=== PATIENT | male | born 1975 | race Caucasian/White ===

== ENCOUNTER → 2016-06-16 | Outpatient (CLI) | payer BC ==
[~2016-06-16] MED LIST: CETI10CA PO
--- NOTE | 2016-06-16 09:11 | Diagnostic Imaging Report ---
PROCEDURE: MRI right joint upper extremity without contrast. TECHNIQUE: Multiplanar, multisequence non contrast-enhanced MRI of the right upper extremity was accomplished. INDICATION: Shoulder pain. COMPARISON: There are no previous studies available for comparison. FINDINGS: On the coronal T2 fat-saturated series, there are small areas of increased signal within the substance of the rotator cuff. These are more likely due to tendinosis than to a partial tear. The supraspinatus muscle itself is not retracted or bunched. There is a trace amount of fluid in the subdeltoid bursa and the presence of fluid suggests there may be an element of mild inflammation. There is hypertrophy of the acromioclavicular joint and this does result in moderate narrowing of the outlet for the supraspinatus muscle. There is also some increased signal within the supraspinatus muscle in this area indicating edema/inflammation. On the axial series, there is some irregularity of the posterior labrum. The labrum in this area may be slightly torn. If further study is desired, followup exam with intra-articular contrast would be recommended. The biceps tendon and the subscapularis tendon are intact. There is a small amount of fluid about the biceps tendon. There is no abnormal signal arising from the cord or the vertebral bodies to indicate an acute abnormality. There is no sign of a joint effusion. IMPRESSION: 1. The small areas of altered signal within the rotator cuff are more likely due to tendinosis than to a partial tear. The supraspinatus muscle itself is not retracted or bunched. There does seem to be an element of mild tendinitis present however. 2. There is hypertrophy of the acromioclavicular joint and this does result in moderate narrowing of the outlet for the supraspinatus muscle. There is also edema/inflammation of the supraspinatus muscle in this region. 3. There is a question of a tear of the posterior labrum. Recommendations as above. 4. There is no acute bony abnormality identified. Dictated by: Dictated on workstation # [id number]
== END ==
LOC: RAD 07:57
PROVIDERS: ATTEND Nurse Practitioner Family
DX: M25.511 Pain in right shoulder (principal)
CPT/HCPCS: 73221

== ENCOUNTER → 2017-12-20 | Outpatient (CLI) | payer BC ==
--- NOTE | 2017-12-20 11:19 | Diagnostic Imaging Report ---
INDICATION: LEFT KNEE PAIN. TECHNIQUE: 3 views of the left knee. COMPARISON: None FINDINGS: No acute fracture or dislocation is seen in the left knee. Alignment appears normal. The joint spaces are preserved. There is a moderate left knee joint effusion. IMPRESSION: Moderate left knee joint effusion with no acute osseous abnormality seen in the left knee. Report was faxed to office of Gin Dooley by skyler at 11:18 am. Dictated by: Dictated on workstation # [id number]
== END ==
LOC: RAD 10:41
PROVIDERS: ATTEND Nurse Practitioner Family
DX: M25.562 Pain in left knee (principal); M25.462 Effusion, left knee
CPT/HCPCS: 73562

== ENCOUNTER → 2017-12-23 | Outpatient (CLI) | payer BC ==
--- NOTE | 2017-12-23 10:56 | Diagnostic Imaging Report ---
PROCEDURE: MRI left joint lower extremity without contrast. TECHNIQUE: Multiplanar, multisequence non contrast-enhanced MRI of the left lower extremity was accomplished. INDICATION: Left knee pain and popping. No prior studies are available for comparison. There is a small knee joint effusion. There is also a very small Friedman's cyst present. The marrow signal intensity is normal. No geographic marrow lesion or bone bruise is identified. The ACL and PCL are intact. The medial and lateral collateral ligament complexes are intact. The lateral meniscus is intact. There is abnormal linear signal extending to the posterior horn of the medial meniscus. This signal surfaces inferiorly and this is consistent with a tear. No displaced meniscal fragment is seen. The extensor mechanism is unremarkable. The articular cartilage appears to be intact without evidence of osteochondral defect. IMPRESSION: 1. Small joint effusion and small Friedman's cyst. 2. Posterior horn medial meniscus tear. 3. No ligamentous tear is identified. Dictated by: Dictated on workstation # [id number]
== END ==
LOC: RAD 09:22
PROVIDERS: ATTEND Nurse Practitioner Family
DX: S83.242A Other tear of medial meniscus, current injury, left knee, initial encounter (principal); M71.22 Synovial cyst of popliteal space [Baker], left knee
CPT/HCPCS: 73721

== ENCOUNTER → 2018-06-30 | Outpatient (CLI) | payer BC | LOC: LAB 13:58 | PROVIDERS: ATTEND Nurse Practitioner Family | DX: I86.1 Scrotal varices (principal) ==

== ENCOUNTER 2018-11-21 21:47 | Inpatient (IN) | payer BC ==
[~2018-11-21] VITALS: Ht 188 cm; Wt 82.1 kg
[2018-11-21] MEDS ORDERED: LACTATED RINGERS 1,000 ML IV ONE ×2 (22:12→23:22)
[2018-11-21] MEDS ORDERED: ONDANSETRON 4 MG/2 ML (SDV) Z0FRAN IVP ONE (22:15)
[2018-11-21 22:18] LABS: BILIRUBIN,URINE NEGATIVE (NEGATIVE); CLARITY,URINE SLIGHTLY CLOUDY; COLOR,URINE RED; GLUCOSE, URINE (UA) NEGATIVE (NEGATIVE); KETONES,URINE 2+ (NEGATIVE); LEUKOCYTE ESTERASE ,URINE 1+ (NEGATIVE); NITRITE,URINE POSITIVE (NEGATIVE); PH,URINE 6.5 (5-9); PROTEIN,URINE 2+ (NEGATIVE); UROBILINOGEN,URINE 1 MG/DL (NORMAL)
[2018-11-21 22:23] LABS: INR 1.1 (0.8-1.4); PROTHROMBIN TIME PATIENT 14.7 SEC (12.2-14.7)
[2018-11-21 22:25] LABS: RBC,URINE TNTC /HPF
[2018-11-21 22:26] LABS: BACTERIA,URINE TRACE /HPF
[2018-11-21 22:30] LABS: BASOPHILS % (AUTO) 0 % (0-10); EOSINOPHILS % (AUTO) 0 % (0-10); HEMATOCRIT 44 % (40-54); HEMOGLOBIN 14.6 G/DL (13.3-17.7); LYMPHOCYTES # (AUTO) 2.8 X 10^3 (1.0-4.0); LYMPHOCYTES % (AUTO) 12 % (12-44); MEAN CORPUSCULAR HEMOGLOBIN 27 PG (25-34); MEAN CORPUSCULAR HGB CONC 33 G/DL (32-36); MEAN CORPUSCULAR VOLUME 81 FL (80-99); MEAN PLATELET VOLUME 11.7 FL (7.4-10.4); MONOCYTES # (AUTO) 2.5 X 10^3 (0.0-1.0); MONOCYTES % (AUTO) 10 % (0-12); NEUTROPHILS # (AUTO) 18.6 X 10^3 (1.8-7.8); NEUTROPHILS % (AUTO) 78 % (42-75); PLATELET COUNT 274 10^3/uL (130-400)
[2018-11-21] MEDS ORDERED: KETOROLAC 30 MG/ML VIAL IVP ONE (22:30)
[2018-11-21 22:42] LABS: BAND NEUTROPHILS 2 %; BASOPHILS % (MANUAL) 0 %; EOSINOPHILS % (MANUAL) 0 %; LYMPHOCYTES % (MANUAL) 8 %; MONOCYTES % (MANUAL) 9 %; NEUTROPHILS % (MANUAL) 80 %; REACTIVE LYMPHOCYTES 1 %; TOXIC GRANULATION/VACUOLAZATIO 1+
[2018-11-21 22:45] LABS: ALANINE AMINOTRANSFERASE 23 U/L (0-55); ALBUMIN 4.4 GM/DL (3.2-4.5); ALKALINE PHOSPHATASE 89 U/L (40-136); AMYLASE 46 U/L (25-125); BILIRUBIN,TOTAL 2.4 MG/DL (0.1-1.0); BUN/CREATININE RATIO 8; CALCIUM 10.6 MG/DL (8.5-10.1); CARBON DIOXIDE 25 MMOL/L (21-32); CHLORIDE 100 MMOL/L (98-107); CREATININE SERUM 1.06 MG/DL (0.60-1.30); GFR ESTIMATED > 60; GLUCOSE 118 MG/DL (70-105); LIPASE 30 U/L (8-78); MAGNESIUM 2.5 MG/DL (1.8-2.4); POTASSIUM 3.8 MMOL/L (3.6-5.0); SODIUM 137 MMOL/L (135-145); TOTAL PROTEIN 7.7 GM/DL (6.4-8.2)
[2018-11-21] MEDS ORDERED: PIPERACILLIN/TAZOBACTAM (BULK) 4.5 GM in NS (IVPB) 100 ML IV ONE (23:15)
[2018-11-21] MEDS ORDERED: NS (IVPB) 100 ML ONE (23:17)
[2018-11-21] MEDS ORDERED: PIPERACILLIN/TAZO 4.5 GM VIAL (ZOSYN) IV ONE (23:17)
[2018-11-22] VITALS (15 sets, daily range): BP systolic 90–115; BP diastolic 52–77
[2018-11-22] MEDS ORDERED: morphine INJ 10 MG/ML 1ML (SYR OR VIAL) IVP ONE (00:15)
[2018-11-22] MEDS ORDERED: metroNIDAZOLE 500MG/100ML IVPB 100 ML IV ONE (01:00)
--- NOTE | 2018-11-22 01:17 | ED Abdominal Pain ---
General Chief Complaint: Abdominal/GI Problems Stated Complaint: ABD PAIN Nursing Triage Note: Pt amb to room #5 w/o difficulty. a&ox4. C/o medial abd pain, nausea, vomiting, and constipation. Reports discomfort began on the evening of 11/20/18. Reports he has not passed bm in x4 days. Reports to have taken mirilax and milk of magnesia w/o no relief. Denies fever or chills. Sepsis Screen: No Definite Risk Source of Information: Patient History of Present Illness Date Seen by Provider: Nov 21, 2018 Time Seen by Provider: 22:05 Initial Comments PT ARRIVES VIA POV FROM HOME C/O LOWER ABDOMINAL PAIN --SUPRAPUBIC AREA AND LLQ--SINCE YESTERDAY EVENING STATES HE HAS NOT HAD A BM IN 304 DAYS--HAS HISTORY OF IBS WITH CONSTIPATION, BUT TAKES MIRALAX AND HAS NOT BEEN HAVING PROBLEMS. 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 ON URINATING. STATES HE HAS HAD DECREASED URINE OUTPUT, HE HAS NOT BEEN EATING OR DRINKING TODAY HAD SUBJECTIVE FEVER LAST PM NO HISTORY OF SIMILAR PCP: DR. FONTAINE Allergies and Home Medications Allergies Coded Allergies: No Known Drug Allergies (Unverified , 11/28/10) Home Medications Cetirizine Hcl 10 Mg Capsule, 10 MG PO DAILY, (Reported) Patient Home Medication List Home Medication List Reviewed: Yes Review of Systems Review of Systems Constitutional: see HPI, fever, other (DECREASED APPETITE) Respiratory: No Symptoms Reported Cardiovascular: No Symptoms Reported Gastrointestinal: See HPI, Abdominal Pain, Constipated, Nausea, Poor Appetite, Vomiting Genitourinary: See HPI Musculoskeletal: no symptoms reported; No back pain Skin: no symptoms reported Psychiatric/Neurological: No Symptoms Reported Endocrine: No Symptoms Reported Hematologic/Lymphatic: No Symptoms Reported Past Cczlyzz-Omwmtx-Ejiypk Hx Patient Social History Alcohol Use: Rarely Uses Number of Drinks Today: 0 Recreational Drug Use: No Smoking Status: Never a Smoker 2nd Hand Smoke Exposure: No Recent Foreign Travel: No Contact w/Someone Who Travel: No Recent Infectious Disease Expo: No Recent Hopitalizations: Yes Seasonal Allergies Seasonal Allergies: No Past Medical History Surgeries: Yes (EGD) Orthopedic Respiratory: No Cardiac: No Neurological: No Genitourinary: No Gastrointestinal: Yes Irritable Bowel Musculoskeletal: No Endocrine: No HEENT: No Cancer: No Psychosocial: No Integumentary: No Blood Disorders: No Physical Exam Vital Signs Vital Signs - First Documented 11/21/18 21:53 Temp 97.8 Pulse 88 Resp 18 B/P (MAP) 124/79 (94) Pulse Ox 96 O2 Delivery Room Air Capillary Refill : Less Than 3 Seconds Height/Weight/BMI Height: 6'2.00" Weight: 185lbs. oz. 83.702232kx; BMI Method:Stated General Appearance: WD/WN, no apparent distress, thin Neck: normal inspection Respiratory: normal breath sounds, no respiratory distress, no accessory muscle use Cardiovascular: regular rate, rhythm, no murmur Gastrointestinal: abnormal bowel sounds (DECREASED ); No distended, No guarding; rebound, tenderness (SUPRAPUBIC AND LLQ WITH SIGNIFICANT TENDERNESS. MILD RLQ TENDERNESS. NO FLANK TENDERNESS); No hernia, No mass Extremities: normal inspection Back: normal inspection, no CVA tenderness Neurologic/Psychiatric: project estimator II-XII nml as tested, no motor/sensory deficits, alert, normal mood/affect, oriented x 3 Skin: normal color, warm/dry Focused Exam Lactate Level 11/21/18 23:00: Lactic Acid Level 1.25 Lactic Acid Level Laboratory Tests Test 11/21/18 23:00 Lactic Acid Level 1.25 MMOL/L (0.50-2.00) Progress/Results/Core Measures Results/Orders Lab Results Laboratory Tests Test 11/21/18 21:57 11/21/18 22:05 11/21/18 23:00 Range/Units White Blood Count 24.0 H 4.3-11.0 10^3/uL Red Blood Count 5.45 4.35-5.85 10^6/uL Hemoglobin 14.6 13.3-17.7 G/DL Hematocrit 44 40-54 % Mean Corpuscular Volume 81 80-99 FL Mean Corpuscular Hemoglobin 27 25-34 PG Mean Corpuscular Hemoglobin Concent 33 32-36 G/DL Red Cell Distribution Width 14.0 10.0-14.5 % Platelet Count 274 130-400 10^3/uL Mean Platelet Volume 11.7 H 7.4-10.4 FL Neutrophils (%) (Auto) 78 H 42-75 % Lymphocytes (%) (Auto) 12 12-44 % Monocytes (%) (Auto) 10 0-12 % Eosinophils (%) (Auto) 0 0-10 % Basophils (%) (Auto) 0 0-10 % Neutrophils # (Auto) 18.6 H 1.8-7.8 X 10^3 Lymphocytes # (Auto) 2.8 1.0-4.0 X 10^3 Monocytes # (Auto) 2.5 H 0.0-1.0 X 10^3 Eosinophils # (Auto) 0.0 0.0-0.3 10^3/uL Basophils # (Auto) 0.0 0.0-0.1 10^3/uL Neutrophils % (Manual) 80 % Lymphocytes % (Manual) 8 % Monocytes % (Manual) 9 % Eosinophils % (Manual) 0 % Basophils % (Manual) 0 % Band Neutrophils 2 % Reactive Lymphocytes 1 % Toxic Granulation 1+ Prothrombin Time 14.7 12.2-14.7 SEC INR Comment 1.1 0.8-1.4 Activated Partial Thromboplast Time 29 24-35 SEC Sodium Level 137 135-145 MMOL/L Potassium Level 3.8 3.6-5.0 MMOL/L Chloride Level 100 98-107 MMOL/L Carbon Dioxide Level 25 21-32 MMOL/L Anion Gap 12 5-14 MMOL/L Blood Urea Nitrogen 8 7-18 MG/DL Creatinine 1.06 0.60-1.30 MG/DL Estimat Glomerular Filtration Rate > 60 BUN/Creatinine Ratio 8 Glucose Level 118 H 70-105 MG/DL Calcium Level 10.6 H 8.5-10.1 MG/DL Corrected Calcium 10.3 H 8.5-10.1 MG/DL Magnesium Level 2.5 H 1.8-2.4 MG/DL Total Bilirubin 2.4 H 0.1-1.0 MG/DL Aspartate Amino Transf (AST/SGOT) 17 5-34 U/L Alanine Aminotransferase (ALT/SGPT) 23 0-55 U/L Alkaline Phosphatase 89 40-136 U/L Total Protein 7.7 6.4-8.2 GM/DL Albumin 4.4 3.2-4.5 GM/DL Amylase Level 46 25-125 U/L Lipase 30 8-78 U/L Urine Color RED H Urine Clarity SLIGHTLY CLOUDY Urine pH 6.5 5-9 Urine Specific Calvin 1.020 1.016-1.022 Urine Protein 2+ H NEGATIVE Urine Glucose (UA) NEGATIVE NEGATIVE Urine Ketones 2+ H NEGATIVE Urine Nitrite POSITIVE H NEGATIVE Urine Bilirubin NEGATIVE NEGATIVE Urine Urobilinogen 1 NORMAL MG/DL Urine Leukocyte Esterase 1+ H NEGATIVE Urine RBC (Auto) 5+ H NEGATIVE Urine RBC TNTC H /HPF Urine WBC 2-5 /HPF Urine Squamous Epithelial Cells NONE /HPF Urine Crystals NONE /LPF Urine Bacteria TRACE /HPF Urine Casts NONE /LPF Urine Mucus SMALL H /LPF Urine Culture Indicated NO Lactic Acid Level 1.25 0.50-2.00 MMOL/L My Orders Orders - CHARLIE TAYLOR DO Ed Iv/Invasive Line Start (11/21/18 22:12) Amylase (11/21/18 22:12) Cbc With Automated Diff (11/21/18 22:12) Comprehensive Metabolic Panel (11/21/18 22:12) Lipase (11/21/18 22:12) Magnesium (11/21/18 22:12) Protime With Inr (11/21/18 22:12) Partial Thromboplastin Time (11/21/18 22:12) Ua Culture If Indicated (11/21/18 22:12) Ondansetron Injection (Zofran Injectio (11/21/18 22:15) Ed Iv/Invasive Line Start (11/21/18 22:12) Lactated Ringers (Lr 1000 Ml Iv Solution (11/21/18 22:12) Ketorolac Injection (Toradol Injection) (11/21/18 22:30) Ct Abd/Pelvis Wo(Kidney Stone) (11/21/18 22:21) Acute Abd Series (11/21/18 22:21) Manual Differential (11/21/18 21:57) Lactic Acid Analyzer (11/21/18 22:38) Blood Culture (11/21/18 22:38) Piperacillin/Tazobactam (Bulk) (Zosyn In (11/21/18 23:15) Ns (Ivpb) (Sodium Chloride 0.9% Ivpb Bag (11/21/18 23:17) Ed Iv/Invasive Line Start (11/21/18 23:22) Lactated Ringers (Lr 1000 Ml Iv Solution (11/21/18 23:22) Piperacillin Sodium/Tazobactam (Zosyn Vi (11/21/18 23:17) Morphine Injection (Morphine Injection (11/22/18 00:15) Metronidazole 500mg/100ml Ivpb (Flagyl 5 (11/22/18 01:00) Medications Given in ED Current Medications Medications Dose Ordered Sig/Masha Route Start Time Stop Time Status Last Admin Dose Admin Ketorolac Tromethamine 30 mg ONCE ONCE IVP 11/21/18 22:30 11/21/18 22:31 DC 11/21/18 22:30 30 MG Lactated Ringer's 1,000 ml @ 0 mls/hr Q0M ONCE IV 11/21/18 22:12 11/21/18 22:14 DC 11/21/18 22:29 1,000 MLS/HR Lactated Ringer's 1,000 ml @ 0 mls/hr Q0M ONCE IV 11/21/18 23:22 11/21/18 23:23 DC 11/21/18 23:36 0 MLS/HR Morphine Sulfate 4 mg ONCE ONCE IVP 11/22/18 00:15 11/22/18 00:16 DC 11/22/18 00:25 4 MG Ondansetron HCl 4 mg ONCE ONCE IVP 11/21/18 22:15 11/21/18 22:16 DC 11/21/18 22:30 4 MG Piperacillin Sod/ Tazobactam Sod 4.5 gm/Sodium Chloride 120 ml @ 240 mls/hr ONCE ONCE IV 11/21/18 23:15 11/22/18 00:12 DC 11/21/18 23:37 240 MLS/HR Vital Signs/I&O 11/21/18 21:53 Temp 97.8 Pulse 88 Resp 18 B/P (MAP) 124/79 (94) Pulse Ox 96 O2 Delivery Room Air 11/22/18 00:00 Intake Total 1000 ml Balance 1000 ml Blood Pressure Mean: 94 Progress Progress Note : Progress Note PAIN TO LOWER ABDOMEN EASED SOMEWHAT WITH TORADOL 0012--PT NOW C/O SHARP PAIN IN RIGHT FLANK--GIVEN MORPHINE WITH EASING OF PAIN NO DETERIORATION IN PT'S CONDITION DURING ER STAY VITALS REMAINED STABLE MARKED DELAY IN OBTAINING CT RESULTS Diagnostic Imaging Comments ABDOMEN XRAYS--NO ACUTE PROCESS, NON SPECIFIC BOWEL GAS, PENDING RADIOLOGIST REVIEW CT ABDOMEN/PELVIS--5 MM PROXIMAL LEFT URETERAL CALCULUS WITH MILD LEFT HYDRONEPHROSIS. SIGNIFICANT INFLAMMATION SURROUNDING LEFT INFERIOR DESCENDING COLON AND SIGMOID COLON AROUND SIGMOID DIVERTICULUM WITH FREE EXTRALUMINAL AIR. NO ABSCESS OR FREE FLUID--PER [facility] VIA FAX AT 0045 Reviewed: Reviewed by Me Departure Communication (Admissions) 56--SPOKE WITH DR. OLGUIN, SURGEON [employer], HE ADVISES TO ADMIT TO DR. FONTAINE AND HE WILL SEE PT IN CONSULT. ANTIBIOTIC ORDERS NOTED. 58--SPOKE WITH DR. FONTAINE, ACCEPTS PT FOR ADMIT. WILL ALSO CONSULT DR. DUENAS Impression Primary Impression: Perforation of sigmoid colon due to diverticulitis Additional Impressions: Left ureteral stone UTI (urinary tract infection) Disposition: ADMITTED INPATIENT Condition: Improved Admissions Decision to Admit Reason: Admit from ER (General) Decision to Admit/Date: Nov 22, 2018 Time/Decision to Admit Time: 01:00 Departure-Patient Inst. Referrals: GUILLERMINA FONTAINE MD (PCP/Family) Primary Care Physician CHARLIE TAYLOR DO Nov 22, 2018 01:17
[2018-11-22] MEDS ORDERED: D5 1/2 NS W/KCL 20 MEQ/L 1,000 ML IV ONE (02:37)
[2018-11-22] MEDS ORDERED: ACETAMINOPHEN 500 MG TAB (TYLENOL) PO PRN (03:15)
[2018-11-22] MEDS ORDERED: morphine INJ 4 MG/ML 1 ML (VIAL/SYRINGE) IV PRN (03:15)
[2018-11-22] MEDS ORDERED: metroNIDAZOLE 500 MG/100 ML IVPB (PRE-MIX) IV SCH ×2 (03:15→06:00)
[2018-11-22] MEDS: D5 1/2 NS W/KCL 20 MEQ/L 1,000 ML IV SCH ×3 (04:03→23:32)
[2018-11-22] MEDS ORDERED: PIPERACILLIN/TAZO 4.5 GM VIAL (ZOSYN) IV ONE (04:48)
[2018-11-22] MEDS: KETOROLAC 30 MG/ML VIAL IVP PRN ×3 (05:14→20:30)
[2018-11-22] MEDS: PIPERACILLIN/TAZO 4.5 GM/NS 100 ML IV SCH ×8 (05:17→21:17)
[2018-11-22] MEDS: NS (IVPB) 100 ML ONE ×2 (05:18→05:32)
[2018-11-22 06:03] LABS: BASOPHILS % (AUTO) 0 % (0-10); EOSINOPHILS % (AUTO) 0 % (0-10); HEMATOCRIT 41 % (40-54); HEMOGLOBIN 13.4 G/DL (13.3-17.7); LYMPHOCYTES # (AUTO) 1.2 X 10^3 (1.0-4.0); LYMPHOCYTES % (AUTO) 6 % (12-44); MEAN CORPUSCULAR HEMOGLOBIN 27 PG (25-34); MEAN CORPUSCULAR HGB CONC 33 G/DL (32-36); MEAN CORPUSCULAR VOLUME 82 FL (80-99); MEAN PLATELET VOLUME 12.1 FL (7.4-10.4); MONOCYTES # (AUTO) 2.5 X 10^3 (0.0-1.0); MONOCYTES % (AUTO) 11 % (0-12); NEUTROPHILS # (AUTO) 18.4 X 10^3 (1.8-7.8); NEUTROPHILS % (AUTO) 83 % (42-75); PLATELET COUNT 241 10^3/uL (130-400); RED CELL DISTRIBUTION WIDTH 14.2 % (10.0-14.5); WHITE BLOOD COUNT 22.2 10^3/uL (4.3-11.0)
[2018-11-22 06:37] LABS: ALANINE AMINOTRANSFERASE 21 U/L (0-55); ALBUMIN 3.8 GM/DL (3.2-4.5); ALKALINE PHOSPHATASE 82 U/L (40-136); BILIRUBIN,TOTAL 2.6 MG/DL (0.1-1.0); BUN/CREATININE RATIO 8; CALCIUM 9.2 MG/DL (8.5-10.1); CARBON DIOXIDE 26 MMOL/L (21-32); CHLORIDE 103 MMOL/L (98-107); CREATININE SERUM 0.97 MG/DL (0.60-1.30); GFR ESTIMATED > 60; GLUCOSE 129 MG/DL (70-105); POTASSIUM 3.7 MMOL/L (3.6-5.0); SODIUM 137 MMOL/L (135-145); TOTAL PROTEIN 6.7 GM/DL (6.4-8.2)
--- OUTSIDE RECORDS SUMMARY | 2018-11-22 06:51 | XMS REPORT | CCD ---
Author Author [facility] Organization [facility] Address [address] [place] [address] Phone Care Team Providers Care Shear Scrapman Name Role Phone Claire Riggs PP Unavailable CCM Unavailable Summary Purpose Interface Exchange Insurance Providers Payer name Policy type / Coverage type Covered green party ID Effective Begin Date Effective End Date [facility] [id number] Unknown Family history Mother Diagnosis Age At Onset Cancer Unknown Brother Diagnosis Age At Onset No Family Disease Entered N/A Grandmother Diagnosis Age At Onset Cancer Unknown Father Diagnosis Age At Onset No Family Disease Entered N/A Social History Social History Element Codes Description Effective Dates Marital status Unknown 01/12/2011 Employment Unknown 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 Unknown Has never used illegal drugs 01/12/2011 Allergies, Adverse Reactions, Alerts Substance Reaction Codes Entered Date Inactivated Date Status * NO KNOWN FOOD ALLERGIES Unknown 01/12/2011 No Inactive Date Active bactrim RxNorm: 600911 03/22/2015 No Inactive Date Active Past Medical History Illness Codes Condition Status Onset Date Resolved Date Encounter for general adult medical examination without abnormal findings ICD-9: V70.0 ICD-10: Z00.00 Active 03/21/2015 Unknown Irritable bowel syndrome with constipation ICD-9: 564.1 ICD-10: K58.1 Active 10/25/2018 Unknown Other allergic rhinitis ICD-9: 477.8 ICD-10: J30.89 Active 01/07/2016 Unknown Right lower quadrant pain ICD-9: 789.03 ICD-10: R10.31 Active 10/06/2018 Unknown Slow transit constipation ICD-9: 564.01 ICD-10: K59.01 Active 10/06/2018 Unknown Candidiasis of skin and nail ICD-9: 112.3 ICD-10: B37.2 Active 08/08/2018 Unknown Dysuria ICD-9: 788.1 ICD-10: R30.0 Active 11/26/2017 Unknown 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 Active 02/22/2018 Unknown Unspecified jaundice ICD- 9: 277.4 ICD-10: R17 Active 03/15/2018 Unknown Inflammatory disorders of scrotum ICD-9: 608.4 ICD-10: N49.2 Active 02/22/2018 Unknown Pain in left knee ICD-9: 719.46 ICD-10: M25.562 Active 12/20/2017 Unknown Other acute sinusitis ICD- 9: 461.8 ICD-10: J01.80 Active 02/24/2017 Unknown Allergic contact dermatitis due to plants, except food ICD-9: 692.6 ICD-10: L23.7 Active 04/05/2017 Unknown Acute recurrent maxillary sinusitis ICD-9: 461.0 ICD-10: J01.01 Active 07/29/2015 Unknown Other acute sinusitis ICD- 9: 461.9 ICD-10: J01.80 Active 01/07/2016 Unknown Acute laryngopharyngitis ICD-9: 465.0 ICD-10: J06.0 Active 08/20/2016 Unknown Pain in right shoulder ICD-9: 719.41 ICD-10: M25.511 Active 06/09/2016 Unknown Melanocytic nevi, unspecified ICD-9: 216.9 ICD-10: D22.9 Active 02/06/2016 Unknown Allergic rhinitis, unspecified ICD-9: 477.9 ICD-10: J30.9 Active 03/21/2015 Unknown Influenza ICD-9: 487.1 Active 06/20/2012 Unknown Screen for sexually transmitted diseases ICD-9: V74.5 Active 03/18/2012 Unknown Burning with urination ICD-9: 788.1 Active 03/17/2012 Unknown ACUTE SINUSITIS ICD-9: 461.9 Active 06/30/2011 Unknown COUGH ICD-9: 786.2 Active 06/30/2011 Unknown Constipation ICD-9: 564.00 Active 03/09/2011 Unknown Irritable bowel syndrome Unknown Active 01/12/2011 Unknown Encounter for annual health examination ICD-9: V70.0 Active 01/12/2011 Unknown Esophageal reflux ICD-9: 530.81 Active 01/12/2011 Unknown Problems Condition Codes Effective Dates Condition Status Encounter for general adult medical examination without abnormal findings ICD-9: V70.0 ICD-10: Z00.00 03/21/2015 Active Irritable bowel syndrome with constipation ICD-9: 564.1 ICD-10: K58.1 10/25/2018 Active Other allergic rhinitis ICD-9: 477.8 ICD-10: J30.89 01/07/2016 Active Right lower quadrant pain ICD-9: 789.03 ICD-10: R10.31 10/06/2018 Active Slow transit constipation ICD-9: 564.01 ICD-10: K59.01 10/06/2018 Active Candidiasis of skin and nail ICD-9: 112.3 ICD-10: B37.2 08/08/2018 Active Dysuria ICD-9: 788.1 ICD-10: R30.0 11/26/2017 Active 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 02/22/2018 Active Unspecified jaundice ICD- 9: 277.4 ICD-10: R17 03/15/2018 Active Inflammatory disorders of scrotum ICD-9: 608.4 ICD-10: N49.2 02/22/2018 Active Pain in left knee ICD-9: 719.46 ICD-10: M25.562 12/20/2017 Active Other acute sinusitis ICD- 9: 461.8 ICD-10: J01.80 02/24/2017 Active Allergic contact dermatitis due to plants, except food ICD-9: 692.6 ICD-10: L23.7 04/05/2017 Active Acute recurrent maxillary sinusitis ICD-9: 461.0 ICD-10: J01.01 07/29/2015 Active Other acute sinusitis ICD- 9: 461.9 ICD-10: J01.80 01/07/2016 Active Acute laryngopharyngitis ICD-9: 465.0 ICD-10: J06.0 08/20/2016 Active Pain in right shoulder ICD-9: 719.41 ICD-10: M25.511 06/09/2016 Active Melanocytic nevi, unspecified ICD-9: 216.9 ICD-10: D22.9 02/06/2016 Active Allergic rhinitis, unspecified ICD-9: 477.9 ICD-10: J30.9 03/21/2015 Active Influenza ICD-9: 487.1 06/20/2012 Active Screen for sexually transmitted diseases ICD-9: V74.5 03/18/2012 Active Burning with urination ICD-9: 788.1 03/17/2012 Active ACUTE SINUSITIS ICD-9: 461.9 06/30/2011 Active COUGH ICD-9: 786.2 06/30/2011 Active Constipation ICD-9: 564.00 03/09/2011 Active Irritable bowel syndrome Unknown 01/12/2011 Active Encounter for annual health examination ICD-9: V70.0 01/12/2011 Active Esophageal reflux ICD-9: 530.81 01/12/2011 Active Medications Medication Codes Instructions Start Date Stop Date Status Fill Instructions Flonase 50 mcg/actuation nasal spray,suspension RxNorm: 6549384 1 Thompson NASAL BID 10/26/2018 No Stop Date Active Lipitor 10 mg tablet RxNorm: 018627 1 Tablet(s) PO daily 10/26/2018 02/22/2019 Active Lipitor 10 mg tablet RxNorm: 048727 1 Tablet(s) PO daily 10/26/2018 10/25/2018 Inactive Yuridia-D 12 Hour 60 mg-120 mg tablet,extended release RxNorm: 097300 1 Tablet(s) PO BID 09/07/2018 No Stop Date Active fluconazole 150 mg tablet RxNorm: 742367 1 Tablet(s) PO daily 08/08/2018 08/14/2018 Inactive omeprazole 20 mg capsule,delayed release RxNorm: 906825 1 Capsule(s) PO daily 06/28/2018 10/25/2018 Inactive Zyrtec-D 5 mg-120 mg tablet,extended release RxNorm: 8276521 1 Tablet(s) PO BID as needed 06/22/2018 No Stop Date Active Flonase 50 mcg/actuation nasal spray,suspension RxNorm: 1416440 1 Thompson NASAL BID 06/22/2018 10/25/2018 Inactive Augmentin 875 mg-125 mg tablet RxNorm: 209683 1 Tablet(s) PO BID 06/02/2018 06/08/2018 Inactive Zithromax Z-Surya 250 mg tablet RxNorm: 095106 1 Tablet(s) PO UD 03/24/2018 06/01/2018 Inactive Flonase 50 mcg/actuation nasal spray,suspension RxNorm: 4233622 1 Thompson NASAL BID 03/01/2018 06/21/2018 Inactive Cipro 500 mg tablet RxNorm: 373908 1 Tablet(s) PO BID 02/16/2018 02/25/2018 Inactive Diflucan 150 mg tablet RxNorm: 636853 1 Tablet(s) PO daily start after cipro is finished 02/16/2018 02/22/2018 Inactive Augmentin 875 mg-125 mg tablet RxNorm: 429298 1 Tablet(s) PO BID 12/24/2017 12/23/2017 Inactive Augmentin 875 mg-125 mg tablet RxNorm: 560518 1 Tablet(s) PO BID 12/24/2017 12/30/2017 Inactive Keflex 500 mg capsule RxNorm: 924942 1 Capsule(s) PO TID 12/08/2017 12/14/2017 Inactive Yuridia-D 12 Hour 60 mg-120 mg tablet,extended release RxNorm: 348483 1 Tablet(s) PO BID 12/06/2017 09/06/2018 Inactive Keflex 500 mg capsule RxNorm: 026231 1 Capsule(s) PO TID 11/26/2017 12/02/2017 Inactive Flonase 50 mcg/actuation nasal spray,suspension RxNorm: 9729058 1 Thompson NASAL BID 11/15/2017 02/28/2018 Inactive Yuridia Allergy 180 mg tablet RxNorm: 948200 1 Tablet(s) PO daily 10/27/2017 10/27/2017 Inactive Zyrtec-D 5 mg-120 mg tablet,extended release RxNorm: 9409492 1 Tablet(s) PO BID as needed 10/20/2017 06/21/2018 Inactive Yuridia Allergy 180 mg tablet RxNorm: 847654 1 Tablet(s) PO daily 09/21/2017 10/20/2017 Inactive Augmentin 500 mg-125 mg tablet RxNorm: 379944 1 Tablet(s) PO TID 07/21/2017 07/30/2017 Inactive Yuridia Allergy 180 mg tablet RxNorm: 720780 1 Tablet(s) PO daily 07/21/2017 08/19/2017 Inactive Zyrtec-D 5 mg-120 mg tablet,extended release RxNorm: 2317900 1 Tablet(s) PO BID as needed 06/15/2017 10/19/2017 Inactive Zyrtec-D 5 mg-120 mg tablet,extended release RxNorm: 3540380 1 Tablet(s) PO BID as needed 05/11/2017 02/21/2018 Inactive prednisone 10 mg tablet RxNorm: 793555 Tablet(s) PO 04/05/2017 12/07/2017 Inactive 6,5,4,3,2,1 Kenalog 40 mg/mL suspension for injection RxNorm: 6912105 1 Milliliter(s) Inj 04/05/2017 04/05/2017 Inactive Flonase 50 mcg/actuation nasal spray,suspension RxNorm: 2019237 1 Thompson NASAL BID 04/01/2017 11/14/2017 Inactive Augmentin 875 mg-125 mg tablet RxNorm: 492082 1 Tablet(s) PO BID 03/22/2017 03/28/2017 Inactive prednisone 20 mg tablet RxNorm: 339816 2 Tablet(s) PO daily 03/02/2017 03/06/2017 Inactive prednisone 20 mg tablet RxNorm: 270724 2 Tablet(s) PO daily 03/02/2017 03/01/2017 Inactive Zithromax Z-Surya 250 mg tablet RxNorm: 601642 1 Tablet(s) PO UD 02/24/2017 03/21/2017 Inactive Kenalog 40 mg/mL suspension for injection RxNorm: 0292263 1 Milliliter(s) Inj 02/24/2017 02/24/2017 Inactive Zyrtec-D 5 mg-120 mg tablet,extended release RxNorm: 9394650 1 Tablet(s) PO BID as needed 02/05/2017 05/10/2017 Inactive Zyrtec-D 5 mg-120 mg tablet,extended release RxNorm: 6023221 1 Tablet(s) PO BID as needed 12/01/2016 02/04/2017 Inactive Zyrtec-D 5 mg-120 mg tablet,extended release RxNorm: 9795167 1 Tablet(s) PO BID as needed 11/03/2016 11/30/2016 Inactive Zyrtec-D 5 mg-120 mg tablet,extended release RxNorm: 9892521 1 Tablet(s) PO BID as needed 10/09/2016 11/02/2016 Inactive Kenalog 40 mg/mL suspension for injection RxNorm: 7712478 1 Milliliter(s) Inj 09/16/2016 09/16/2016 Inactive Levaquin 500 mg tablet RxNorm: 421968 1 Tablet(s) PO daily 09/15/2016 09/24/2016 Inactive Levaquin 500 mg tablet RxNorm: 162093 1 Tablet(s) PO daily 09/15/2016 09/14/2016 Inactive prednisone 20 mg tablet RxNorm: 723671 1 Tablet(s) PO BID 09/15/2016 09/19/2016 Inactive amoxicillin 500 mg tablet RxNorm: 009442 1 Tablet(s) PO BID 08/20/2016 08/29/2016 Inactive Augmentin 875 mg-125 mg tablet RxNorm: 348524 1 Tablet(s) PO BID 04/23/2016 04/28/2016 Inactive Zyrtec-D 5 mg-120 mg tablet,extended release RxNorm: 1992609 1 Tablet(s) PO BID as needed 01/31/2016 10/08/2016 Inactive Flonase 50 mcg/actuation nasal spray,suspension RxNorm: 7116139 1 Thompson NASAL BID 01/08/2016 01/22/2016 Inactive Flonase 50 mcg/actuation nasal spray,suspension RxNorm: 8834768 1 Thompson NASAL BID 01/08/2016 01/07/2016 Inactive 1 spray each nare x 5 days Zithromax Z-Surya 250 mg tablet RxNorm: 798885 Tablet(s) PO 01/08/2016 01/30/2016 Inactive Zyrtec-D 5 mg-120 mg tablet,extended release RxNorm: 0624635 1 Tablet(s) PO BID as needed 01/08/2016 01/30/2016 Inactive Augmentin 875 mg-125 mg tablet RxNorm: 673038 1 Tablet(s) PO BID 10/08/2015 10/17/2015 Inactive Augmentin 875 mg-125 mg tablet RxNorm: 057712 1 Tablet(s) PO BID 10/08/2015 10/07/2015 Inactive prednisone 20 mg tablet RxNorm: 495914 1 Tablet(s) PO BID 08/01/2015 08/05/2015 Inactive prednisone 20 mg tablet RxNorm: 254463 1 Tablet(s) PO BID 08/01/2015 07/31/2015 Inactive Kenalog 40 mg/mL suspension for injection RxNorm: 6402138 Milliliter(s) Inj 07/30/2015 07/30/2015 Inactive Zyrtec-D 5 mg-120 mg tablet,extended release RxNorm: 0262398 1 Tablet(s) PO BID as needed 07/30/2015 01/07/2016 Inactive Augmentin 875 mg-125 mg tablet RxNorm: 509392 1 Tablet(s) PO BID 07/30/2015 08/05/2015 Inactive Kenalog 40 mg/mL suspension for injection RxNorm: 3609270 1 Milliliter(s) Inj 03/22/2015 03/22/2015 Inactive Flonase 50 mcg/actuation Nasal Thompson RxNorm: 7369412 1 Thompson NASAL 07/12/2012 07/11/2012 Inactive 1 spray each nare x 5 days Flonase 50 mcg/actuation Nasal Thompson RxNorm: 5445370 1 Thompson NASAL 07/12/2012 07/16/2012 Inactive 1 spray each nare x 5 days cefdinir 300 mg capsule RxNorm: 621039 1 Capsule(s) PO BID 07/12/2012 07/18/2012 Inactive cefdinir 300 mg capsule RxNorm: 586707 1 Capsule(s) PO BID 07/12/2012 07/11/2012 Inactive Tamiflu 75 mg capsule RxNorm: 766875 1 Capsule(s) PO BID 06/20/2012 06/24/2012 Inactive Tamiflu 75 mg capsule RxNorm: 864502 1 Capsule(s) PO BID 06/20/2012 06/19/2012 Inactive Diflucan 150 mg tablet RxNorm: 344053 1 Tablet(s) PO daily 04/21/2012 05/04/2012 Inactive nystatin 100,000 unit/g Topical Cream RxNorm: 745016 1 Application TOP TID 04/13/2012 05/02/2012 Inactive one application to groin tid Diflucan 150 mg tablet RxNorm: 670296 1 Tablet(s) PO daily 04/04/2012 04/06/2012 Inactive nystatin 100,000 unit/g Topical Cream RxNorm: 969127 1 Application TOP TID 04/04/2012 04/03/2012 Inactive one application to groin tid x 10 day nystatin 100,000 unit/g Topical Cream RxNorm: 503102 1 Application TOP TID 04/04/2012 04/12/2012 Inactive one application to groin tid x 10 day Diflucan 150 mg tablet RxNorm: 385992 1 Tablet(s) PO daily 03/23/2012 03/22/2012 Inactive Diflucan 150 mg tablet RxNorm: 919990 1 Tablet(s) PO daily 03/23/2012 03/29/2012 Inactive Rocephin 1 gram Solution for Injection RxNorm: 4189221 Inj 03/18/2012 03/18/2012 Inactive Augmentin 500 mg-125 mg tablet RxNorm: 844705 1 Tablet(s) PO TID 03/11/2012 03/10/2012 Inactive Augmentin 500 mg-125 mg tablet RxNorm: 369072 1 Tablet(s) PO TID 03/11/2012 03/17/2012 Inactive Kenalog 40 mg/mL Susp for Injection RxNorm: 4645574 1 Milliliter(s) Inj 07/02/2011 07/02/2011 Inactive Rocephin 500 mg Solution for Injection RxNorm: 4472998 1 Milliliter(s) Inj 07/02/2011 07/02/2011 Inactive Bactrim DS 800 mg-160 mg Tab RxNorm: 275910 1 Tablet(s) PO BID 06/30/2011 07/09/2011 Inactive multivitamin Oral RxNorm: Oral No Start Date Active omeprazole 40 mg Cap, Delayed Release RxNorm: 491061 1 Capsule(s) PO PRN No Start Date Active dicyclomine 20 mg tablet RxNorm: 455501 1 Tablet(s) PO TID No Start Date Active Yuridia-D 12 Hour 60 mg-120 mg tablet,extended release RxNorm: 979968 1 Tablet(s) PO BID No Start Date 12/05/2017 Inactive Zithromax 500 mg tablet RxNorm: 407099 2 Tablet(s) PO daily No Start Date 01/30/2016 Inactive Aspirin For Children 81 mg Chewable Tab RxNorm: 124985 1 Tablet(s) PO daily No Start Date 08/07/2018 Inactive Zyrtec-D 5 mg-120 mg 12 hr Tab RxNorm: 6003962 1 Tablet(s) PO daily No Start Date 07/29/2015 Inactive Medication Administered Medication Codes Instructions Start Date Status Kenalog 40 mg/mL suspension for injection RxNorm: 1947535 1Milliliter 04/05/2017 No longer Active Kenalog 40 mg/mL suspension for injection RxNorm: 2286417 1Milliliter 02/24/2017 No longer Active Kenalog 40 mg/mL suspension for injection RxNorm: 7749941 1Milliliter 09/16/2016 No longer Active Kenalog 40 mg/mL suspension for injection RxNorm: 8993258 Milliliter 07/30/2015 No longer Active Kenalog 40 mg/mL suspension for injection RxNorm: 7665357 1Milliliter 03/22/2015 No longer Active Rocephin 1 gram Solution for Injection RxNorm: 1471919 03/18/2012 No longer Active Rocephin 500 mg Solution for Injection RxNorm: 4049101 1Milliliter 07/02/2011 No longer Active Kenalog 40 mg/mL Susp for Injection RxNorm: 9492821 1Milliliter 07/02/2011 No longer Active Immunizations Vaccine Codes Date Status Tetanus, Diptheria, Pertussis Unknown 05/23/2010 completed Assessments Condition Codes Effective Dates Other allergic rhinitis ICD-10: J30.89 ICD-9: 477.8 10/25/2018 Irritable bowel syndrome with constipation ICD-10: K58.1 ICD-9: 564.1 10/25/2018 Slow transit constipation ICD-10: K59.01 ICD-9: 564.01 10/06/2018 Right lower quadrant pain ICD-10: R10.31 ICD-9: 789.03 10/06/2018 Candidiasis of skin and nail ICD-10: B37.2 ICD-9: 112.3 08/08/2018 Dysuria ICD-10: R30.0 ICD-9: 788.1 06/28/2018 Scrotal varices ICD-10: I86.1 ICD-9: 456.4 06/28/2018 Unspecified jaundice ICD-10: R17 ICD-9: 277.4 03/15/2018 Inflammatory disorders of scrotum ICD-10: N49.2 ICD-9: 608.4 02/22/2018 Pain in left knee ICD-10: M25.562 ICD-9: 719.46 12/20/2017 Encounter for general adult medical examination without abnormal findings ICD-10: Z00.00 ICD-9: V70.0 11/26/2017 Other acute sinusitis ICD-10: J01.80 ICD-9: 461.8 07/21/2017 Allergic contact dermatitis due to plants, except food ICD-10: L23.7 ICD-9: 692.6 04/05/2017 Acute recurrent maxillary sinusitis ICD-10: J01.01 ICD-9: 461.0 03/22/2017 Acute laryngopharyngitis ICD-10: J06.0 ICD-9: 465.0 08/20/2016 Pain in right shoulder ICD-10: M25.511 ICD-9: 719.41 06/10/2016 Melanocytic nevi, unspecified ICD-10: D22.9 ICD-9: 216.9 02/07/2016 Other acute sinusitis ICD-10: J01.80 ICD-9: 461.9 01/08/2016 Allergic rhinitis, unspecified ICD-10: J30.9 ICD-9: 477.9 03/22/2015 Influenza ICD-9: 487.1 06/20/2012 DYSURIA ICD-9: 788.1 03/18/2012 Screen for sexually transmitted diseases ICD-9: V74.5 03/18/2012 COUGH ICD-9: 786.2 06/30/2011 ACUTE SINUSITIS ICD-9: 461.9 06/30/2011 ESOPHAGEAL REFLUX ICD-9: 530.81 03/09/2011 Constipation ICD-9: 564.00 03/09/2011 Encounter for annual health examination ICD-9: V70.0 01/12/2011 Reason For Visit Reason For Visit Effective Dates Notes abdominal pain 10/25/2018 abdominal pain 10/06/2018 penile pain and discharge 08/08/2018 dysuria 06/28/2018 cyst 02/22/2018 urinary frequency 02/16/2018 knee pain 12/20/2017 well man exam (40-65 years) 11/26/2017 sinus congestion 07/21/2017 rash 04/05/2017 earache 03/22/2017 sinus congestion 02/24/2017 sore throat 08/20/2016 shoulder pain 06/10/2016 skin lesion 02/07/2016 sinus congestion 01/08/2016 cough 07/30/2015 well man exam (18-39 years) 03/22/2015 sinus congestion 06/20/2012 dysuria 03/18/2012 sinus congestion 06/30/2011 abdominal pain 03/09/2011 ~generic 01/12/2011 new patient - transfer from Dr. Francisco Results Observation Observation Code Item Item Code Result Date Comp Metabolic Xxu751 NA 139 mEq/L 03/15/2018 Comp Metabolic Xsh270 K 4.2 mEq/L 03/15/2018 Comp Metabolic Wzx860 CL 101 mEq/L 03/15/2018 Comp Metabolic Azy999 CO2 32.0 mEq/L 03/15/2018 Comp Metabolic Knb705 ANION GAP 10 03/15/2018 Comp Metabolic Zel636 GLUCOSE 94 mg/dL 03/15/2018 Comp Metabolic Qva219 Creat 0.9 mg/dL 03/15/2018 Comp Metabolic Rvv467 eGFR 104 ml/min/1.73m2 03/15/2018 Comp Metabolic Heu363 BUN 14 mg/dL 03/15/2018 Comp Metabolic Pmp747 B/C Ratio 16.3 Ratio 03/15/2018 Comp Metabolic Lws389 CALCIUM 9.8 mg/dL 03/15/2018 Comp Metabolic Xjt923 ALK PHOS 75 U/L 03/15/2018 Comp Metabolic Zyx075 AST(SGOT) 20 U/L 03/15/2018 Comp Metabolic Awj995 ALT(SGPT) 30 U/L 03/15/2018 Comp Metabolic Lqk821 BILI T 1.2 mg/dL 03/15/2018 Comp Metabolic Cfv903 ALBUMIN 4.7 g/dL 03/15/2018 Comp Metabolic Fzy005 TPRO 7.2 g/dL 03/15/2018 Comp Metabolic Tmx294 GLOB 2.5 g/dL 03/15/2018 Comp Metabolic Wva663 A/G Ratio 1.9 Ratio 03/15/2018 Comp Metabolic Rkg720 Osmo 278 mOsmo 03/15/2018 Urine Culture Ucult Preliminary NO Growth Day 1 01/06/2018 Urine Culture Ucult Complete NO Growth Day 2 01/06/2018 Urinalysis Ord28 U-Color Yellow 01/04/2018 Urinalysis Ord28 U-Clarity Cloudy 01/04/2018 Urinalysis Ord28 U-Gluc Negative 01/04/2018 Urinalysis Ord28 U-Bili Negative 01/04/2018 Urinalysis Ord28 U-Ketone Negative 01/04/2018 Urinalysis Ord28 U-SG 1.020 01/04/2018 Urinalysis Ord28 U-Blood Negative 01/04/2018 Urinalysis Ord28 U-pH 8.0 01/04/2018 Urinalysis Ord28 U-Protein Negative 01/04/2018 Urinalysis Ord28 U-Urobilin 0.2 E.U./dL E.U./dL 01/04/2018 Urinalysis Ord28 U-Nitrites Negative 01/04/2018 Urinalysis Ord28 U-Leuk Negative 01/04/2018 Urinalysis Ord28 U-Bact None 01/04/2018 Urinalysis Ord28 U-Squamous Epi 0-5 per/HPF 01/04/2018 Urinalysis Ord28 U-Crystal None per/HPF 01/04/2018 Urinalysis Ord28 U-Mucus None 01/04/2018 Urinalysis Ord28 U-Renal tubular epi None 01/04/2018 Urinalysis Ord28 U-RBC None per/HPF 01/04/2018 Urinalysis Ord28 U-Transitional epi None per/HPF 01/04/2018 Urinalysis Ord28 U-WBC None per/HPF 01/04/2018 Urinalysis Ord28 U-Cast None per/HPF 01/04/2018 Urinalysis Ord28 U-VOL VOLUME SUFFICIENT (10mL) 01/04/2018 Urinalysis Ord28 U-Yeast NEGATIVE 01/04/2018 Urinalysis Ord28 U-Com Amorphus phosphates present. Urine saved if culture needed 01/04/2018 Hepatitis Panel (Abc) 50662 HEPATITIS B SURFACE AG . 12/09/2017 Hepatitis Panel (Abc) 42013 HEPATITIS B SURFACE AG NEGATIVE 12/09/2017 Hepatitis Panel (Abc) 21856 HEPATITIS B CORE AB, IGM . 12/09/2017 Hepatitis Panel (Abc) 61503 HEPATITIS B CORE AB, IGM NEGATIVE 12/09/2017 Hepatitis Panel (Abc) 64221 HEPATITIS A AB, IGM . 12/09/2017 Hepatitis Panel (Abc) 56488 HEPATITIS A AB, IGM NEGATIVE 12/09/2017 Hepatitis Panel (Abc) 65186 HEPATITIS C ANTIBODY . 12/09/2017 Hepatitis Panel (Abc) 07094 HEPATITIS C ANTIBODY NEGATIVE 12/09/2017 Tsh Ord6 TSH (3rd IS) 2.24 uIU/mL 11/29/2017 Comp Metabolic Eht285 NA 138 mEq/L 11/29/2017 Comp Metabolic Msj504 K 4.1 mEq/L 11/29/2017 Comp Metabolic Rim817 CL 101 mEq/L 11/29/2017 Comp Metabolic Ztt481 CO2 30.0 mEq/L 11/29/2017 Comp Metabolic Hxz830 ANION GAP 11 11/29/2017 Comp Metabolic Gbm638 GLUCOSE 89 mg/dL 11/29/2017 Comp Metabolic Rdp213 Creat 0.8 mg/dL 11/29/2017 Comp Metabolic Bsp149 eGFR 107 ml/min/1.73m2 11/29/2017 Comp Metabolic Jqc842 BUN 15 mg/dL 11/29/2017 Comp Metabolic Eqc424 B/C Ratio 17.9 Ratio 11/29/2017 Comp Metabolic Gek567 CALCIUM 9.4 mg/dL 11/29/2017 Comp Metabolic Ydx190 ALK PHOS 71 U/L 11/29/2017 Comp Metabolic Yqp537 AST(SGOT) 19 U/L 11/29/2017 Comp Metabolic Fym716 ALT(SGPT) 27 U/L 11/29/2017 Comp Metabolic Yan494 BILI T 1.8 mg/dL 11/29/2017 Comp Metabolic Fbq942 ALBUMIN 4.4 g/dL 11/29/2017 Comp Metabolic Fsc781 TPRO 6.8 g/dL 11/29/2017 Comp Metabolic Gsd898 GLOB 2.5 g/dL 11/29/2017 Comp Metabolic Ixt999 A/G Ratio 1.8 Ratio 11/29/2017 Comp Metabolic Kno069 Osmo 276 mOsmo 11/29/2017 Urine Culture Ucult Preliminary NO Growth Day 1 11/29/2017 Urine Culture Ucult Complete NO Growth Day 2 11/29/2017 Lipid Ord30 CHOL 178 mg/dL 11/29/2017 Lipid Ord30 HDL 32.0 mg/dl 11/29/2017 Lipid Ord30 TRIG 91 mg/dL 11/29/2017 Lipid Ord30 LDL 128 mg/dL 11/29/2017 Lipid Ord30 C/HDL 5.6 Ratio 11/29/2017 Cbc With Differential Ord2 WBC 8.47 K/ul 11/29/2017 Cbc With Differential Ord2 RBC 5.37 M/ul 11/29/2017 Cbc With Differential Ord2 HGB 14.7 g/dl 11/29/2017 Cbc With Differential Ord2 HCT 44.4 % 11/29/2017 Cbc With Differential Ord2 Neut% 52.5 % 11/29/2017 Cbc With Differential Ord2 MCV 82.7 fl 11/29/2017 Cbc With Differential Ord2 Lymph% 37.3 % 11/29/2017 Cbc With Differential Ord2 MCH 27.4 pg 11/29/2017 Cbc With Differential Ord2 Cache% 8.3 % 11/29/2017 Cbc With Differential Ord2 MCHC 33.1 pg 11/29/2017 Cbc With Differential Ord2 Eos% 1.8 % 11/29/2017 Cbc With Differential Ord2 PLT 280 K/ul 11/29/2017 Cbc With Differential Ord2 Baso% 0.1 % 11/29/2017 Cbc With Differential Ord2 RDW 13.5 % 11/29/2017 Cbc With Differential Ord2 Neut ABS# 4.45 K/ul 11/29/2017 Cbc With Differential Ord2 Lymph ABS# 3.16 K/ul 11/29/2017 Cbc With Differential Ord2 Cache ABS# 0.7 K/ul 11/29/2017 Cbc With Differential Ord2 Eos ABS# 0.2 K/ul 11/29/2017 Cbc With Differential Ord2 Baso ABS# 0.0 K/ul 11/29/2017 C RAP A SC [id number] Strep A Negative 08/20/2016 GC/CHL PRB 6330911 SOURCE CASSANDRA UNKNOWN 03/19/2012 GC/CHL PRB 6364700 CHLM PROBE NEG 03/19/2012 GC/CHL PRB 7069898 GC PROBE NEG 03/19/2012 URINALYSIS NONAUTO W/O SCOPE 95221 Specific [place] 1.010 DateTime(Free Text in Aprima) URINALYSIS NONAUTO W/O SCOPE 32281 PH 6.5 DateTime(Free Text in Aprima) URINALYSIS NONAUTO W/O SCOPE 63968 GLUCOSE neg DateTime(Free Text in Aprima) URINALYSIS NONAUTO W/O SCOPE 11056 Protein neg DateTime(Free Text in Aprima) URINALYSIS NONAUTO W/O SCOPE 15589 Blood neg DateTime(Free Text in Aprima) URINALYSIS NONAUTO W/O SCOPE 96736 Bilirubin neg DateTime(Free Text in Aprima) URINALYSIS NONAUTO W/O SCOPE 01856 Ketones neg DateTime(Free Text in Aprima) URINALYSIS NONAUTO W/O SCOPE 83564 Urobilinogen neg DateTime(Free Text in Aprima) URINALYSIS NONAUTO W/O SCOPE 17206 Nitrite neg DateTime(Free Text in ) URINALYSIS NONAUTO W/O SCOPE 28024 Leukocytes neg DateTime(Free Text in ) Review of Systems System Result Effective Dates Ears/Nose/Throat/Neck nasal allergies 10/25/2018 Ears/Nose/Throat/Neck nasal discharge 10/25/2018 Gastrointestinal No constipation 10/25/2018 Gastrointestinal No diarrhea 10/25/2018 Gastrointestinal No abdominal pain 10/25/2018 Constitutional No recent illness 10/25/2018 Constitutional No anorexia 10/25/2018 Constitutional No chills 10/25/2018 Constitutional No night sweats 10/25/2018 Constitutional No diaphoresis 10/25/2018 Constitutional No fever 10/25/2018 Constitutional No fatigue 10/25/2018 Constitutional No insomnia 10/25/2018 Constitutional No malaise 10/25/2018 Constitutional No weight loss 10/25/2018 Constitutional No weight gain 10/25/2018 Eyes No eye erythema 10/25/2018 Eyes No eye discharge 10/25/2018 Cardiovascular No chest pain/pressure 10/25/2018 Cardiovascular No dyspnea 10/25/2018 Respiratory No cough 10/25/2018 Genitourinary/Nephrology No dysuria 10/25/2018 Genitourinary/Nephrology No urinary urgency 10/25/2018 Genitourinary/Nephrology No urinary frequency 10/25/2018 Musculoskeletal No joint complaint 10/25/2018 Dermatologic No rash 10/25/2018 Neurologic No alteration of consciousness 10/25/2018 Psychiatric anxiety 10/25/2018 Constitutional recent illness 10/06/2018 Constitutional No chills 10/06/2018 Constitutional No diaphoresis 10/06/2018 Constitutional No fever 10/06/2018 Eyes No eye erythema 10/06/2018 Ears/Nose/Throat/Neck No nasal discharge 10/06/2018 Cardiovascular No chest pain/pressure 10/06/2018 Cardiovascular No dyspnea 10/06/2018 Respiratory No chest congestion 10/06/2018 Respiratory No cough 10/06/2018 Gastrointestinal abdominal pain 10/06/2018 Gastrointestinal constipation 10/06/2018 Gastrointestinal No diarrhea 10/06/2018 Gastrointestinal No hematochezia 10/06/2018 Gastrointestinal No melena 10/06/2018 Gastrointestinal No nausea 10/06/2018 Gastrointestinal No vomiting 10/06/2018 Neurologic No alteration of consciousness 10/06/2018 Neurologic No mental status change 10/06/2018 Constitutional No recent illness 08/08/2018 Constitutional No anorexia 08/08/2018 Constitutional No night sweats 08/08/2018 Constitutional No chills 08/08/2018 Constitutional No diaphoresis 08/08/2018 Constitutional No fatigue 08/08/2018 Constitutional No fever 08/08/2018 Constitutional No insomnia 08/08/2018 Constitutional No malaise 08/08/2018 Constitutional No weight loss 08/08/2018 Constitutional No weight gain 08/08/2018 Genitourinary/Nephrology penile pain and discharge 08/08/2018 Genitourinary/Nephrology No testicular pain 08/08/2018 Constitutional No recent illness 06/28/2018 Constitutional No anorexia 06/28/2018 Constitutional No night sweats 06/28/2018 Constitutional No chills 06/28/2018 Constitutional No diaphoresis 06/28/2018 Constitutional No fatigue 06/28/2018 Constitutional No fever 06/28/2018 Constitutional No insomnia 06/28/2018 Constitutional No malaise 06/28/2018 Constitutional No weight loss 06/28/2018 Constitutional No weight gain 06/28/2018 Genitourinary/Nephrology No testicular pain 06/28/2018 Genitourinary/Nephrology testicular mass 06/28/2018 Genitourinary/Nephrology No penile pain and discharge 06/28/2018 Genitourinary/Nephrology dysuria 06/28/2018 Gastrointestinal No abdominal pain 06/28/2018 Gastrointestinal No constipation 06/28/2018 Gastrointestinal diarrhea 06/28/2018 Ears/Nose/Throat/Neck No dizziness 06/28/2018 Ears/Nose/Throat/Neck No headache 06/28/2018 Cardiovascular No chest pain/pressure 06/28/2018 Respiratory No cough 06/28/2018 Eyes No eye discharge 06/28/2018 Eyes No eye erythema 06/28/2018 Musculoskeletal No joint complaint 06/28/2018 Dermatologic No rash 06/28/2018 Neurologic No alteration of consciousness 06/28/2018 Genitourinary/Nephrology No urinary urgency 06/28/2018 Genitourinary/Nephrology No urinary frequency 06/28/2018 Genitourinary/Nephrology No urinary incontinence 06/28/2018 Genitourinary/Nephrology No urinary retention/hesitancy 06/28/2018 Constitutional No recent illness 02/22/2018 Constitutional No anorexia 02/22/2018 Constitutional No night sweats 02/22/2018 Constitutional No chills 02/22/2018 Constitutional No diaphoresis 02/22/2018 Constitutional No fatigue 02/22/2018 Constitutional No fever 02/22/2018 Constitutional No insomnia 02/22/2018 Constitutional No malaise 02/22/2018 Constitutional No weight loss 02/22/2018 Constitutional No weight gain 02/22/2018 Genitourinary/Nephrology testicular pain 02/22/2018 Constitutional No recent illness 02/16/2018 Constitutional No chills 02/16/2018 Constitutional No diaphoresis 02/16/2018 Constitutional No fever 02/16/2018 Ears/Nose/Throat/Neck No nasal discharge 02/16/2018 Eyes No eye erythema 02/16/2018 Cardiovascular No chest pain/pressure 02/16/2018 Respiratory No cough 02/16/2018 Respiratory No chest congestion 02/16/2018 Gastrointestinal No abdominal pain 02/16/2018 Genitourinary/Nephrology dysuria 02/16/2018 Genitourinary/Nephrology No hematuria 02/16/2018 Genitourinary/Nephrology No testicular pain 02/16/2018 Genitourinary/Nephrology No testicular mass 02/16/2018 Genitourinary/Nephrology No urinary urgency 02/16/2018 Genitourinary/Nephrology No urinary frequency 02/16/2018 Genitourinary/Nephrology No urinary incontinence 02/16/2018 Genitourinary/Nephrology No urinary retention/hesitancy 02/16/2018 Genitourinary/Nephrology No penile pain and discharge 02/16/2018 Genitourinary/Nephrology No polyuria 02/16/2018 Musculoskeletal No joint complaint 02/16/2018 Neurologic No alteration of consciousness 02/16/2018 Neurologic No mental status change 02/16/2018 Dermatologic No rash 02/16/2018 Constitutional No recent illness 12/20/2017 Constitutional No anorexia 12/20/2017 Constitutional No night sweats 12/20/2017 Constitutional No chills 12/20/2017 Constitutional No diaphoresis 12/20/2017 Constitutional No fatigue 12/20/2017 Constitutional No fever 12/20/2017 Constitutional No insomnia 12/20/2017 Constitutional No malaise 12/20/2017 Constitutional No weight loss 12/20/2017 Constitutional No weight gain 12/20/2017 Musculoskeletal joint complaint 12/20/2017 Constitutional No recent illness 11/26/2017 Constitutional No anorexia 11/26/2017 Constitutional No night sweats 11/26/2017 Constitutional No chills 11/26/2017 Constitutional No diaphoresis 11/26/2017 Constitutional No fatigue 11/26/2017 Constitutional No fever 11/26/2017 Constitutional No insomnia 11/26/2017 Constitutional No malaise 11/26/2017 Constitutional No weight loss 11/26/2017 Constitutional No weight gain 11/26/2017 Eyes No eye discharge 11/26/2017 Eyes No eye erythema 11/26/2017 Ears/Nose/Throat/Neck No dizziness 11/26/2017 Ears/Nose/Throat/Neck No headache 11/26/2017 Ears/Nose/Throat/Neck nasal allergies 11/26/2017 Ears/Nose/Throat/Neck No otalgia 11/26/2017 Ears/Nose/Throat/Neck No sinus congestion 11/26/2017 Ears/Nose/Throat/Neck No sore throat 11/26/2017 Cardiovascular No chest pain/pressure 11/26/2017 Cardiovascular No dyspnea 11/26/2017 Cardiovascular No edema 11/26/2017 Respiratory No productive sputum 11/26/2017 Respiratory No chest congestion 11/26/2017 Respiratory No cough 11/26/2017 Gastrointestinal No abdominal pain 11/26/2017 Gastrointestinal No constipation 11/26/2017 Gastrointestinal diarrhea 11/26/2017 Genitourinary/Nephrology dysuria 11/26/2017 Musculoskeletal No joint complaint 11/26/2017 Dermatologic No rash 11/26/2017 Neurologic No alteration of consciousness 11/26/2017 Psychiatric No depression 11/26/2017 Endocrine No dry or coarse skin 11/26/2017 Hematologic/Lymphatic No abnormal ecchymoses 11/26/2017 Constitutional recent illness 07/21/2017 Constitutional No chills 07/21/2017 Constitutional No diaphoresis 07/21/2017 Constitutional No fever 07/21/2017 Eyes No eye erythema 07/21/2017 Ears/Nose/Throat/Neck nasal allergies 07/21/2017 Ears/Nose/Throat/Neck nasal discharge 07/21/2017 Ears/Nose/Throat/Neck postnasal drip 07/21/2017 Ears/Nose/Throat/Neck sinus congestion 07/21/2017 Ears/Nose/Throat/Neck No sore throat 07/21/2017 Cardiovascular No chest pain/pressure 07/21/2017 Cardiovascular No dyspnea 07/21/2017 Respiratory No chest congestion 07/21/2017 Respiratory cough 07/21/2017 Respiratory No dyspnea 07/21/2017 Gastrointestinal No abdominal pain 07/21/2017 Gastrointestinal No constipation 07/21/2017 Gastrointestinal No diarrhea 07/21/2017 Gastrointestinal No nausea 07/21/2017 Gastrointestinal No vomiting 07/21/2017 Dermatologic No rash 07/21/2017 Neurologic No alteration of consciousness 07/21/2017 Neurologic No mental status change 07/21/2017 Constitutional No recent illness 04/05/2017 Constitutional No chills 04/05/2017 Constitutional No diaphoresis 04/05/2017 Constitutional No fever 04/05/2017 Eyes No eye erythema 04/05/2017 Eyes No eye pain 04/05/2017 Eyes No eyelid pain 04/05/2017 Eyes No photophobia 04/05/2017 Ears/Nose/Throat/Neck No nasal discharge 04/05/2017 Cardiovascular No chest pain/pressure 04/05/2017 Cardiovascular No dyspnea 04/05/2017 Respiratory No cough 04/05/2017 Respiratory No chest congestion 04/05/2017 Gastrointestinal No abdominal pain 04/05/2017 Dermatologic rash 04/05/2017 Neurologic No alteration of consciousness 04/05/2017 Neurologic No mental status change 04/05/2017 Constitutional recent illness 03/22/2017 Constitutional No anorexia 03/22/2017 Constitutional No night sweats 03/22/2017 Constitutional No chills 03/22/2017 Constitutional No diaphoresis 03/22/2017 Constitutional No fatigue 03/22/2017 Constitutional No fever 03/22/2017 Constitutional No insomnia 03/22/2017 Constitutional No malaise 03/22/2017 Constitutional No weight loss 03/22/2017 Constitutional No weight gain 03/22/2017 Constitutional No obesity 03/22/2017 Eyes No eye discharge 03/22/2017 Eyes No eye pain 03/22/2017 Ears/Nose/Throat/Neck No dizziness 03/22/2017 Ears/Nose/Throat/Neck headache 03/22/2017 Ears/Nose/Throat/Neck nasal allergies 03/22/2017 Ears/Nose/Throat/Neck nasal discharge 03/22/2017 Ears/Nose/Throat/Neck postnasal drip 03/22/2017 Ears/Nose/Throat/Neck sinus congestion 03/22/2017 Ears/Nose/Throat/Neck No sore throat 03/22/2017 Ears/Nose/Throat/Neck No tympanic membrane perforation 03/22/2017 Cardiovascular No chest pain/pressure 03/22/2017 Cardiovascular No dyspnea 03/22/2017 Respiratory No chest congestion 03/22/2017 Respiratory No chest tightness 03/22/2017 Respiratory No cigarette smoking 03/22/2017 Respiratory No dyspnea on exertion 03/22/2017 Respiratory No dyspnea 03/22/2017 Gastrointestinal No abdominal pain 03/22/2017 Gastrointestinal No constipation 03/22/2017 Gastrointestinal No diarrhea 03/22/2017 Gastrointestinal No nausea 03/22/2017 Gastrointestinal No vomiting 03/22/2017 Genitourinary/Nephrology No dysuria 03/22/2017 Musculoskeletal No joint complaint 03/22/2017 Musculoskeletal No muscle weakness 03/22/2017 Musculoskeletal No myalgias 03/22/2017 Dermatologic No rash 03/22/2017 Dermatologic No sores 03/22/2017 Ears/Nose/Throat/Neck otalgia 03/22/2017 Respiratory cough 03/22/2017 Constitutional recent illness 02/24/2017 Constitutional chills 02/24/2017 Constitutional No diaphoresis 02/24/2017 Constitutional fever 02/24/2017 Eyes No eye erythema 02/24/2017 Ears/Nose/Throat/Neck nasal allergies 02/24/2017 Ears/Nose/Throat/Neck nasal discharge 02/24/2017 Ears/Nose/Throat/Neck postnasal drip 02/24/2017 Ears/Nose/Throat/Neck sinus congestion 02/24/2017 Ears/Nose/Throat/Neck sore throat 02/24/2017 Cardiovascular No chest pain/pressure 02/24/2017 Cardiovascular No dyspnea 02/24/2017 Respiratory No chest congestion 02/24/2017 Respiratory cough 02/24/2017 Respiratory No dyspnea 02/24/2017 Gastrointestinal No abdominal pain 02/24/2017 Gastrointestinal No constipation 02/24/2017 Gastrointestinal No diarrhea 02/24/2017 Gastrointestinal No nausea 02/24/2017 Gastrointestinal No vomiting 02/24/2017 Dermatologic No rash 02/24/2017 Neurologic No alteration of consciousness 02/24/2017 Neurologic No mental status change 02/24/2017 Constitutional malaise 02/24/2017 Ears/Nose/Throat/Neck otalgia 02/24/2017 Respiratory productive sputum 02/24/2017 Constitutional recent illness 08/20/2016 Constitutional No anorexia 08/20/2016 Constitutional No fatigue 08/20/2016 Constitutional fever 08/20/2016 Eyes No eye discharge 08/20/2016 Eyes No eye erythema 08/20/2016 Constitutional No chills 08/20/2016 Constitutional No diaphoresis 08/20/2016 Constitutional No night sweats 08/20/2016 Ears/Nose/Throat/Neck No dizziness 08/20/2016 Ears/Nose/Throat/Neck No headache 08/20/2016 Ears/Nose/Throat/Neck nasal discharge 08/20/2016 Ears/Nose/Throat/Neck nasal allergies 08/20/2016 Ears/Nose/Throat/Neck No otalgia 08/20/2016 Ears/Nose/Throat/Neck No sinus congestion 08/20/2016 Ears/Nose/Throat/Neck sore throat 08/20/2016 Cardiovascular No chest pain/pressure 08/20/2016 Respiratory No cough 08/20/2016 Respiratory No productive sputum 08/20/2016 Gastrointestinal No abdominal pain 08/20/2016 Genitourinary/Nephrology No dysuria 08/20/2016 Musculoskeletal No joint complaint 08/20/2016 Dermatologic No rash 08/20/2016 Neurologic No alteration of consciousness 08/20/2016 Constitutional No recent illness 06/10/2016 Constitutional No chills 06/10/2016 Constitutional No fever 06/10/2016 Eyes No eye erythema 06/10/2016 Ears/Nose/Throat/Neck No nasal discharge 06/10/2016 Cardiovascular No chest pain/pressure 06/10/2016 Cardiovascular No dyspnea 06/10/2016 Respiratory No cough 06/10/2016 Respiratory No dyspnea 06/10/2016 Neurologic No alteration of consciousness 06/10/2016 Neurologic No mental status change 06/10/2016 Musculoskeletal shoulder pain 06/10/2016 Constitutional No recent illness 02/07/2016 Constitutional No anorexia 02/07/2016 Constitutional No chills 02/07/2016 Constitutional No night sweats 02/07/2016 Constitutional No diaphoresis 02/07/2016 Constitutional No fatigue 02/07/2016 Constitutional No fever 02/07/2016 Constitutional No insomnia 02/07/2016 Constitutional No malaise 02/07/2016 Constitutional No weight loss 02/07/2016 Constitutional No obesity 02/07/2016 Dermatologic skin lesion 02/07/2016 Constitutional No weight gain 02/07/2016 Constitutional recent illness 01/08/2016 Constitutional No chills 01/08/2016 Constitutional No fever 01/08/2016 Eyes No eye discharge 01/08/2016 Ears/Nose/Throat/Neck headache 01/08/2016 Ears/Nose/Throat/Neck nasal allergies 01/08/2016 Ears/Nose/Throat/Neck nasal discharge 01/08/2016 Ears/Nose/Throat/Neck postnasal drip 01/08/2016 Ears/Nose/Throat/Neck sinus congestion 01/08/2016 Cardiovascular No chest pain/pressure 01/08/2016 Cardiovascular No dyspnea 01/08/2016 Respiratory No chest congestion 01/08/2016 Respiratory No dyspnea 01/08/2016 Gastrointestinal No abdominal pain 01/08/2016 Musculoskeletal No joint complaint 01/08/2016 Dermatologic No rash 01/08/2016 Dermatologic No sores 01/08/2016 Constitutional No diaphoresis 01/08/2016 Eyes No eye erythema 01/08/2016 Respiratory No cough 01/08/2016 Gastrointestinal No vomiting 01/08/2016 Gastrointestinal No nausea 01/08/2016 Constitutional No recent illness 07/30/2015 Constitutional No anorexia 07/30/2015 Constitutional No night sweats 07/30/2015 Constitutional No chills 07/30/2015 Constitutional No diaphoresis 07/30/2015 Constitutional No fatigue 07/30/2015 Constitutional No fever 07/30/2015 Constitutional No insomnia 07/30/2015 Constitutional No malaise 07/30/2015 Constitutional No weight loss 07/30/2015 Constitutional No weight gain 07/30/2015 Constitutional No obesity 07/30/2015 Eyes No eye discharge 07/30/2015 Eyes No eye pain 07/30/2015 Ears/Nose/Throat/Neck headache 07/30/2015 Cardiovascular No chest pain/pressure 07/30/2015 Cardiovascular No dyspnea 07/30/2015 Respiratory cough 07/30/2015 Respiratory No cigarette smoking 07/30/2015 Respiratory No chest congestion 07/30/2015 Respiratory No chest tightness 07/30/2015 Respiratory productive sputum 07/30/2015 Respiratory No dyspnea 07/30/2015 Respiratory No dyspnea on exertion 07/30/2015 Gastrointestinal No constipation 07/30/2015 Gastrointestinal No diarrhea 07/30/2015 Gastrointestinal No nausea 07/30/2015 Gastrointestinal No vomiting 07/30/2015 Gastrointestinal No abdominal pain 07/30/2015 Genitourinary/Nephrology No dysuria 07/30/2015 Musculoskeletal No joint complaint 07/30/2015 Musculoskeletal No muscle weakness 07/30/2015 Musculoskeletal No myalgias 07/30/2015 Dermatologic No sores 07/30/2015 Dermatologic No rash 07/30/2015 Ears/Nose/Throat/Neck nasal allergies 07/30/2015 Ears/Nose/Throat/Neck nasal discharge 07/30/2015 Ears/Nose/Throat/Neck No dizziness 07/30/2015 Ears/Nose/Throat/Neck sinus congestion 07/30/2015 Ears/Nose/Throat/Neck postnasal drip 07/30/2015 Ears/Nose/Throat/Neck otitis media 07/30/2015 Ears/Nose/Throat/Neck otalgia 07/30/2015 Ears/Nose/Throat/Neck No sore throat 07/30/2015 Ears/Nose/Throat/Neck No tympanic membrane perforation 07/30/2015 Constitutional No recent illness 03/22/2015 Constitutional No anorexia 03/22/2015 Constitutional No night sweats 03/22/2015 Constitutional No chills 03/22/2015 Constitutional No diaphoresis 03/22/2015 Constitutional No fever 03/22/2015 Constitutional No fatigue 03/22/2015 Constitutional No insomnia 03/22/2015 Constitutional No malaise 03/22/2015 Constitutional No weight loss 03/22/2015 Constitutional No weight gain 03/22/2015 Eyes No eye discharge 03/22/2015 Eyes No eye erythema 03/22/2015 Ears/Nose/Throat/Neck No dizziness 03/22/2015 Ears/Nose/Throat/Neck headache 03/22/2015 Ears/Nose/Throat/Neck nasal allergies 03/22/2015 Ears/Nose/Throat/Neck nasal discharge 03/22/2015 Ears/Nose/Throat/Neck No otalgia 03/22/2015 Ears/Nose/Throat/Neck sinus congestion 03/22/2015 Ears/Nose/Throat/Neck No sore throat 03/22/2015 Cardiovascular No chest pain/pressure 03/22/2015 Cardiovascular No dyspnea 03/22/2015 Cardiovascular No edema 03/22/2015 Respiratory No productive sputum 03/22/2015 Respiratory No chest congestion 03/22/2015 Respiratory cough 03/22/2015 Gastrointestinal No abdominal pain 03/22/2015 Gastrointestinal No constipation 03/22/2015 Gastrointestinal No diarrhea 03/22/2015 Genitourinary/Nephrology No dysuria 03/22/2015 Musculoskeletal No joint complaint 03/22/2015 Dermatologic No rash 03/22/2015 Neurologic No alteration of consciousness 03/22/2015 Psychiatric No depression 03/22/2015 Psychiatric No anxiety 03/22/2015 Endocrine No dry or coarse skin 03/22/2015 Hematologic/Lymphatic No abnormal bleeding and bruising 03/22/2015 Constitutional recent illness 06/20/2012 Constitutional anorexia 06/20/2012 Constitutional chills 06/20/2012 Constitutional diaphoresis 06/20/2012 Constitutional fatigue 06/20/2012 Constitutional fever 06/20/2012 Constitutional No insomnia 06/20/2012 Eyes No eye discharge 06/20/2012 Eyes No eye erythema 06/20/2012 Cardiovascular No chest pain/pressure 06/20/2012 Respiratory No productive sputum 06/20/2012 Respiratory No chest congestion 06/20/2012 Respiratory No cough 06/20/2012 Gastrointestinal No vomiting 06/20/2012 Gastrointestinal No nausea 06/20/2012 Gastrointestinal No abdominal pain 06/20/2012 Genitourinary/Nephrology No dysuria 06/20/2012 Constitutional No recent illness 03/18/2012 Constitutional No anorexia 03/18/2012 Constitutional No night sweats 03/18/2012 Constitutional No chills 03/18/2012 Constitutional No diaphoresis 03/18/2012 Constitutional No fatigue 03/18/2012 Constitutional No fever 03/18/2012 Constitutional No insomnia 03/18/2012 Constitutional No malaise 03/18/2012 Eyes No eye discharge 03/18/2012 Eyes No eye erythema 03/18/2012 Cardiovascular No chest pain/pressure 03/18/2012 Gastrointestinal No abdominal pain 03/18/2012 Gastrointestinal No constipation 03/18/2012 Gastrointestinal No diarrhea 03/18/2012 Gastrointestinal No nausea 03/18/2012 Gastrointestinal No vomiting 03/18/2012 Gastrointestinal No gas and bloating 03/18/2012 Musculoskeletal No joint complaint 03/18/2012 Respiratory No cough 03/18/2012 Ears/Nose/Throat/Neck No dizziness 03/18/2012 Ears/Nose/Throat/Neck No headache 03/18/2012 Dermatologic No sores 03/18/2012 Dermatologic No rash 03/18/2012 Dermatologic No drainage 03/18/2012 Dermatologic No skin lesion 03/18/2012 Neurologic No alteration of consciousness 03/18/2012 Constitutional No recent illness 06/30/2011 Constitutional No chills 06/30/2011 Constitutional No diaphoresis 06/30/2011 Constitutional fatigue 06/30/2011 Constitutional No fever 06/30/2011 Eyes No eye discharge 06/30/2011 Eyes No eye erythema 06/30/2011 Ears/Nose/Throat/Neck No dizziness 06/30/2011 Ears/Nose/Throat/Neck headache 06/30/2011 Ears/Nose/Throat/Neck nasal allergies 06/30/2011 Ears/Nose/Throat/Neck nasal discharge 06/30/2011 Ears/Nose/Throat/Neck sore throat 06/30/2011 Ears/Nose/Throat/Neck sinus congestion 06/30/2011 Cardiovascular No chest pain/pressure 06/30/2011 Respiratory No productive sputum 06/30/2011 Respiratory cough 06/30/2011 Respiratory No dyspnea 06/30/2011 Respiratory No chest congestion 06/30/2011 Respiratory No chest tightness 06/30/2011 Gastrointestinal No abdominal pain 06/30/2011 Gastrointestinal No nausea 06/30/2011 Gastrointestinal No vomiting 06/30/2011 Gastrointestinal No diarrhea 06/30/2011 Gastrointestinal No constipation 06/30/2011 Genitourinary/Nephrology No dysuria 06/30/2011 Musculoskeletal No stiffness 03/09/2011 Dermatologic No rash 03/09/2011 Psychiatric No anxiety 03/09/2011 Psychiatric No depression 03/09/2011 Constitutional No anorexia 03/09/2011 Constitutional No chills 03/09/2011 Constitutional No fatigue 03/09/2011 Constitutional No fever 03/09/2011 Cardiovascular No chest pain/pressure 03/09/2011 Cardiovascular No edema 03/09/2011 Cardiovascular No fatigue 03/09/2011 Respiratory No chest congestion 03/09/2011 Respiratory No chest tightness 03/09/2011 Respiratory No cough 03/09/2011 Genitourinary/Nephrology No urinary urgency 03/09/2011 Genitourinary/Nephrology No urinary frequency 03/09/2011 Musculoskeletal No swelling 03/09/2011 Constitutional No night sweats 01/12/2011 Constitutional No anorexia 01/12/2011 Constitutional No fatigue 01/12/2011 Constitutional No fever 01/12/2011 Constitutional weight gain/obesity 01/12/2011 Psychiatric No depression 01/12/2011 Psychiatric No drug abuse 01/12/2011 Eyes No vision change 01/12/2011 Ears/Nose/Throat/Neck No dysphagia 01/12/2011 Ears/Nose/Throat/Neck No headache 01/12/2011 Ears/Nose/Throat/Neck No hoarseness 01/12/2011 Cardiovascular No arrhythmia 01/12/2011 Cardiovascular No chest pain/pressure 01/12/2011 Cardiovascular No edema 01/12/2011 Cardiovascular No exercise intolerance 01/12/2011 Cardiovascular No fatigue 01/12/2011 Cardiovascular No hypertension 01/12/2011 Respiratory No chest congestion 01/12/2011 Respiratory No chest tightness 01/12/2011 Respiratory No cigarette smoking 01/12/2011 Gastrointestinal No constipation 01/12/2011 Gastrointestinal No diarrhea 01/12/2011 Gastrointestinal dyspepsia 01/12/2011 Gastrointestinal gastroesophageal reflux 01/12/2011 Gastrointestinal No nausea 01/12/2011 Musculoskeletal No arthralgia(s) 01/12/2011 Musculoskeletal No back pain 01/12/2011 Musculoskeletal No muscle weakness 01/12/2011 Neurologic No headache 01/12/2011 Neurologic No pain, back 01/12/2011 Physical Exam Exam Name System Name Item Name Status Result Effective Dates Notes Full Exam - General 1994 Constitutional general appearance Overall: well developed 10/25/2018 None Full Exam - General 1994 Constitutional general appearance Overall: in no acute distress 10/25/2018 None Full Exam - General 1994 Constitutional general appearance Overall: well nourished 10/25/2018 None Full Exam - General 1994 Eyes conjunctiva/eyelids Overall: conjunctiva clear 10/25/2018 None Full Exam - General 1994 Eyes conjunctiva/eyelids Overall: cornea clear 10/25/2018 None Full Exam - General 1994 Eyes conjunctiva/eyelids Overall: eyelids normal 10/25/2018 None Full Exam - General 1994 Ears/Nose/Throat lips/teeth/gingiva Overall: benign lips 10/25/2018 None Full Exam - General 1994 Ears/Nose/Throat oral cavity/pharynx/larynx Overall: oral mucosa clear 10/25/2018 None Full Exam - General 1994 Respiratory auscultation Overall: breath sounds clear bilaterally 10/25/2018 None Full Exam - General 1994 Respiratory respiratory effort/rhythm Overall: no retractions 10/25/2018 None Full Exam - General 1994 Respiratory respiratory effort/rhythm Overall: normal rate 10/25/2018 None Full Exam - General 1994 Cardiovascular auscultation of heart Overall: regular rate 10/25/2018 None Full Exam - General 1994 Cardiovascular auscultation of heart Overall: normal heart sounds 10/25/2018 None Full Exam - General 1994 Abdomen abdominal exam Lower quadrant: dull pain 10/25/2018 None Full Exam - General 1994 Abdomen abdominal exam Lower quadrant: no guarding 10/25/2018 None Full Exam - General 1994 Abdomen abdominal exam Lower quadrant: no rebound tenderness 10/25/2018 None Full Exam - General 1994 Abdomen abdominal exam Lower quadrant: soft 10/25/2018 None Full Exam - General 1994 Musculoskeletal head and neck Overall: head atraumatic 10/25/2018 None Full Exam - General 1994 Neurologic cranial nerves Overall: crainial nerves 2 - 12 grossly intact 10/25/2018 None Full Exam - General 1994 Psychiatric orientation/consciousness Overall: oriented to person, place and time 10/25/2018 None Full Exam - General 1994 Psychiatric mood and affect Overall: normal mood and affect 10/25/2018 None Full Exam - Cardiology Abdomen abdominal exam Overall: normal bowel sounds 10/25/2018 None Full Exam - General 1994 Constitutional general appearance Overall: well developed 10/06/2018 None Full Exam - General 1994 Constitutional general appearance Overall: in no acute distress 10/06/2018 None Full Exam - General 1994 Constitutional general appearance Overall: well nourished 10/06/2018 None Full Exam - General 1994 Eyes conjunctiva/eyelids Overall: conjunctiva clear 10/06/2018 None Full Exam - General 1994 Eyes conjunctiva/eyelids Overall: cornea clear 10/06/2018 None Full Exam - General 1994 Eyes conjunctiva/eyelids Overall: eyelids normal 10/06/2018 None Full Exam - General 1994 Ears/Nose/Throat lips/teeth/gingiva Overall: benign lips 10/06/2018 None Full Exam - General 1994 Ears/Nose/Throat oral cavity/pharynx/larynx Overall: oral mucosa clear 10/06/2018 None Full Exam - General 1994 Respiratory auscultation Overall: breath sounds clear bilaterally 10/06/2018 None Full Exam - General 1994 Respiratory respiratory effort/rhythm Overall: no retractions 10/06/2018 None Full Exam - General 1994 Respiratory respiratory effort/rhythm Overall: normal rate 10/06/2018 None Full Exam - General 1994 Cardiovascular auscultation of heart Overall: regular rate 10/06/2018 None Full Exam - General 1994 Cardiovascular auscultation of heart Overall: normal heart sounds 10/06/2018 None Full Exam - General 1994 Musculoskeletal head and neck Overall: head atraumatic 10/06/2018 None Full Exam - General 1994 Neurologic cranial nerves Overall: crainial nerves 2 - 12 grossly intact 10/06/2018 None Full Exam - General 1994 Psychiatric orientation/consciousness Overall: oriented to person, place and time 10/06/2018 None Full Exam - General 1994 Psychiatric mood and affect Overall: normal mood and affect 10/06/2018 None Full Exam - General 1994 Abdomen abdominal exam Bowel sounds: hypoactive 10/06/2018 None Full Exam - General 1994 Abdomen abdominal exam Lower quadrant: tender to palpation 10/06/2018 None Full Exam - General 1994 Abdomen abdominal exam Lower quadrant: dull pain 10/06/2018 None Full Exam - General 1994 Abdomen abdominal exam Lower quadrant: voluntary guarding 10/06/2018 None Full Exam - General 1994 Abdomen abdominal exam Lower quadrant: no guarding 10/06/2018 None Full Exam - General 1994 Abdomen abdominal exam Lower quadrant: no rebound tenderness 10/06/2018 None Full Exam - General 1994 Abdomen abdominal exam Lower quadrant: soft 10/06/2018 None Full Exam - General 1994 Constitutional general appearance Overall: well developed 08/08/2018 None Full Exam - General 1994 Constitutional general appearance Overall: in no acute distress 08/08/2018 None Full Exam - General 1994 Constitutional general appearance Overall: well nourished 08/08/2018 None Full Exam - General 1994 Psychiatric orientation/consciousness Overall: oriented to person, place and time 08/08/2018 None Full Exam - General 1994 Respiratory auscultation Overall: breath sounds clear bilaterally 08/08/2018 None Full Exam - General 1994 Respiratory respiratory effort/rhythm Overall: no retractions 08/08/2018 None Full Exam - General 1994 Respiratory respiratory effort/rhythm Overall: normal rate 08/08/2018 None Full Exam - General 1994 Cardiovascular auscultation of heart Overall: regular rate 08/08/2018 None Full Exam - General 1994 Cardiovascular auscultation of heart Overall: normal heart sounds 08/08/2018 None Full Exam - General 1994 Constitutional general appearance Overall: well developed 06/28/2018 None Full Exam - General 1994 Constitutional general appearance Overall: in no acute distress 06/28/2018 None Full Exam - General 1994 Constitutional general appearance Overall: well nourished 06/28/2018 None Full Exam - General 1994 Ears/Nose/Throat otoscopic exam Overall: external auditory canals clear 06/28/2018 None Full Exam - General 1994 Ears/Nose/Throat otoscopic exam Overall: tympanic membranes clear 06/28/2018 None Full Exam - General 1994 Ears/Nose/Throat oral cavity/pharynx/larynx Overall: oral mucosa clear 06/28/2018 None Full Exam - General 1994 Respiratory auscultation Overall: breath sounds clear bilaterally 06/28/2018 None Full Exam - General 1994 Respiratory respiratory effort/rhythm Overall: no retractions 06/28/2018 None Full Exam - General 1994 Respiratory respiratory effort/rhythm Overall: normal rate 06/28/2018 None Full Exam - General 1994 Psychiatric orientation/consciousness Overall: oriented to person, place and time 06/28/2018 None Full Exam - General 1994 Integument inspection of skin Overall: few scattered moles, no gross abnormalities 06/28/2018 None Full Exam - General 1994 Cardiovascular auscultation of heart Overall: regular rate 06/28/2018 None Full Exam - General 1994 Cardiovascular auscultation of heart Overall: normal heart sounds 06/28/2018 None Full Exam - General 1994 Abdomen abdominal exam Overall: no tenderness 06/28/2018 None Full Exam - General 1994 Abdomen abdominal exam Overall: normal bowel sounds 06/28/2018 None Full Exam - Genitourinary/Male Constitutional general appearance Overall: well nourished 02/22/2018 None Full Exam - Genitourinary/Male Constitutional general appearance Overall: well developed 02/22/2018 None Full Exam - Genitourinary/Male Constitutional general appearance Overall: in no acute distress 02/22/2018 None Full Exam - Genitourinary/Male Respiratory auscultation Overall: breath sounds clear bilaterally 02/22/2018 None Full Exam - Genitourinary/Male Cardiovascular auscultation of heart Overall: regular rate 02/22/2018 None Full Exam - Genitourinary/Male Cardiovascular auscultation of heart Overall: normal heart sounds 02/22/2018 None Full Exam - Genitourinary/Male Cardiovascular auscultation of heart Overall: no murmurs 02/22/2018 None Full Exam - Genitourinary/Male Psychiatric orientation/consciousness Overall: oriented to person, place and time 02/22/2018 None Full Exam - Genitourinary/Male Genitourinary scrotum Lesions on left: tender 02/22/2018 varicocele Full Exam - General 1994 Constitutional general appearance Overall: well developed 02/16/2018 None Full Exam - General 1994 Constitutional general appearance Overall: in no acute distress 02/16/2018 None Full Exam - General 1994 Constitutional general appearance Overall: well nourished 02/16/2018 None Full Exam - General 1994 Eyes conjunctiva/eyelids Overall: conjunctiva clear 02/16/2018 None Full Exam - General 1994 Eyes conjunctiva/eyelids Overall: cornea clear 02/16/2018 None Full Exam - General 1994 Eyes conjunctiva/eyelids Overall: eyelids normal 02/16/2018 None Full Exam - General 1995 Ears/Nose/Throat lips/teeth/gingiva Overall: benign lips 02/16/2018 None Full Exam - General 1995 Ears/Nose/Throat oral cavity/pharynx/larynx Overall: oral mucosa clear 02/16/2018 None Full Exam - General 1994 Respiratory respiratory effort/rhythm Overall: no retractions 02/16/2018 None Full Exam - General 1994 Respiratory respiratory effort/rhythm Overall: normal rate 02/16/2018 None Full Exam - General 1994 Cardiovascular extremities Overall: no clubbing 02/16/2018 None Full Exam - General 1994 Musculoskeletal head and neck Overall: head atraumatic 02/16/2018 None Full Exam - General 1994 Musculoskeletal gait and station Overall: normal station 02/16/2018 None Full Exam - General 1994 Musculoskeletal gait and station Overall: normal gait 02/16/2018 None Full Exam - General 1994 Neurologic cranial nerves Overall: crainial nerves 2 - 12 grossly intact 02/16/2018 None Full Exam - General 1994 Psychiatric orientation/consciousness Overall: oriented to person, place and time 02/16/2018 None Full Exam - General 1994 Psychiatric mood and affect Overall: normal mood and affect 02/16/2018 None Full Exam - Orthopedics Constitutional general appearance Overall: well nourished 12/20/2017 None Full Exam - Orthopedics Constitutional general appearance Overall: well developed 12/20/2017 None Full Exam - Orthopedics Constitutional general appearance Overall: in no acute distress 12/20/2017 None Full Exam - Orthopedics Psychiatric orientation/consciousness Overall: oriented to person, place and time 12/20/2017 None Full Exam - Orthopedics MS: left lower extremity insp & palp - LLE Knee: joint swelling 12/20/2017 None Full Exam - Orthopedics MS: left lower extremity insp & palp - LLE Knee: MM joint line tenderness 12/20/2017 None Full Exam - Orthopedics MS: left lower extremity insp & palp - LLE Lower leg: normal appearance 12/20/2017 None Full Exam - Orthopedics MS: left lower extremity insp & palp - LLE Thigh: normal appearance 12/20/2017 None Full Exam - Orthopedics MS: left lower extremity range of motion - LLE Knee: decreased flexion 12/20/2017 None Full Exam - Orthopedics MS: left lower extremity range of motion - LLE Knee: pain with flexion 12/20/2017 None Full Exam - Orthopedics MS: left lower extremity range of motion - LLE Knee: decreased extension 12/20/2017 None Full Exam - Orthopedics MS: left lower extremity range of motion - LLE Knee: pain with extension 12/20/2017 None Full Exam - Orthopedics MS: left lower extremity stability - LLE Knee: painful Laurie's (medial compartment) 12/20/2017 None Full Exam - General 1994 Constitutional general appearance Overall: well developed 11/26/2017 None Full Exam - General 1994 Constitutional general appearance Overall: in no acute distress 11/26/2017 None Full Exam - General 1994 Constitutional general appearance Overall: well nourished 11/26/2017 None Full Exam - General 1994 Eyes conjunctiva/eyelids Overall: conjunctiva clear 11/26/2017 None Full Exam - General 1994 Eyes conjunctiva/eyelids Overall: eyelids normal 11/26/2017 None Full Exam - General 1994 Eyes pupils and irises Overall: pupils equal, round, reactive to light and accomodation 11/26/2017 None Full Exam - General 1994 Ears/Nose/Throat lips/teeth/gingiva Overall: benign lips 11/26/2017 None Full Exam - General 1994 Ears/Nose/Throat oral cavity/pharynx/larynx Overall: oral mucosa clear 11/26/2017 None Full Exam - General 1994 Respiratory auscultation Overall: breath sounds clear bilaterally 11/26/2017 None Full Exam - General 1994 Respiratory respiratory effort/rhythm Overall: no retractions 11/26/2017 None Full Exam - General 1994 Respiratory respiratory effort/rhythm Overall: normal rate 11/26/2017 None Full Exam - General 1994 Cardiovascular auscultation of heart Overall: regular rate 11/26/2017 None Full Exam - General 1994 Cardiovascular auscultation of heart Overall: normal heart sounds 11/26/2017 None Full Exam - General 1994 Neurologic cranial nerves Overall: crainial nerves 2 - 12 grossly intact 11/26/2017 None Full Exam - General 1994 Psychiatric orientation/consciousness Overall: oriented to person, place and time 11/26/2017 None Full Exam - General 1994 Psychiatric mood and affect Overall: normal mood and affect 11/26/2017 None Full Exam - General 1994 Psychiatric appearance Overall: well-groomed, good eye contact 11/26/2017 None Full Exam - General 1994 Ears/Nose/Throat otoscopic exam Overall: external auditory canals clear 11/26/2017 None Full Exam - General 1994 Ears/Nose/Throat otoscopic exam Overall: tympanic membranes clear 11/26/2017 None Full Exam - General 1994 Abdomen abdominal exam Overall: normal bowel sounds 11/26/2017 None Full Exam - General 1994 Abdomen abdominal exam Overall: no tenderness 11/26/2017 None Full Exam - General 1994 Lymphatic neck nodes Overall: posterior cervical chain benign 11/26/2017 None Full Exam - General 1994 Lymphatic neck nodes Overall: anterior cervical chain benign 11/26/2017 None Full Exam - General 1994 Musculoskeletal gait and station Overall: normal gait 11/26/2017 None Full Exam - General 1994 Musculoskeletal gait and station Overall: normal station 11/26/2017 None Full Exam - General 1994 Musculoskeletal head and neck Overall: head atraumatic 11/26/2017 None Full Exam - General 1994 Integument inspection of skin Overall: few scattered moles, no gross abnormalities 11/26/2017 None Full Exam - ENT Constitutional general appearance Overall: well nourished 07/21/2017 None Full Exam - ENT Constitutional general appearance Overall: well developed 07/21/2017 None Full Exam - ENT Constitutional general appearance Overall: in no acute distress 07/21/2017 None Full Exam - ENT Ears/Nose/Throat otoscopic exam Overall: external auditory canals normal 07/21/2017 None Full Exam - ENT Ears/Nose/Throat otoscopic exam Left tympanic membrane: air-fluid level 07/21/2017 None Full Exam - ENT Ears/Nose/Throat otoscopic exam Right tympanic membrane: air-fluid level 07/21/2017 None Full Exam - ENT Ears/Nose/Throat nasal mucosa, septum, turbinates Drainage: clear 07/21/2017 None Full Exam - ENT Ears/Nose/Throat nasal mucosa, septum, turbinates Drainage: yellow 07/21/2017 None Full Exam - ENT Ears/Nose/Throat lips/teeth/gingiva Overall: benign lips 07/21/2017 None Full Exam - ENT Ears/Nose/Throat oropharynx Posterior Pharynx: clear post nasal drainage 07/21/2017 None Full Exam - ENT Face and Head palpation Left maxillary sinus: tender 07/21/2017 None Full Exam - ENT Face and Head palpation Right maxillary sinus: tender 07/21/2017 None Full Exam - ENT Respiratory inspection Overall: no retractions 07/21/2017 None Full Exam - ENT Respiratory inspection Overall: normal rate 07/21/2017 None Full Exam - ENT Respiratory auscultation Overall: breath sounds clear bilaterally 07/21/2017 None Full Exam - ENT Cardiovascular auscultation of heart Overall: regular rate 07/21/2017 None Full Exam - ENT Cardiovascular auscultation of heart Overall: normal heart sounds 07/21/2017 None Full Exam - ENT Lymphatic palpation of lymph nodes Overall: anterior cervical chain benign 07/21/2017 None Full Exam - ENT Lymphatic palpation of lymph nodes Overall: posterior cervical chain benign 07/21/2017 None Full Exam - ENT Neurologic mood and affect Overall: normal mood 07/21/2017 None Full Exam - ENT Neurologic mood and affect Overall: normal affect 07/21/2017 None Full Exam - ENT Neurologic orientation Overall: oriented to person, place and time 07/21/2017 None Full Exam - General 1994 Constitutional general appearance Overall: well developed 04/05/2017 None Full Exam - General 1994 Constitutional general appearance Overall: in no acute distress 04/05/2017 None Full Exam - General 1994 Constitutional general appearance Overall: well nourished 04/05/2017 None Full Exam - General 1994 Eyes conjunctiva/eyelids Overall: conjunctiva clear 04/05/2017 None Full Exam - General 1994 Eyes conjunctiva/eyelids Overall: eyelids normal 04/05/2017 None Full Exam - General 1994 Eyes pupils and irises Overall: pupils equal, round, reactive to light and accomodation 04/05/2017 None Full Exam - General 1994 Ears/Nose/Throat lips/teeth/gingiva Overall: benign lips 04/05/2017 None Full Exam - General 1994 Ears/Nose/Throat oral cavity/pharynx/larynx Overall: oral mucosa clear 04/05/2017 None Full Exam - General 1994 Respiratory respiratory effort/rhythm Overall: no retractions 04/05/2017 None Full Exam - General 1994 Respiratory respiratory effort/rhythm Overall: normal rate 04/05/2017 None Full Exam - General 1994 Respiratory auscultation Overall: breath sounds clear bilaterally 04/05/2017 None Full Exam - General 1994 Cardiovascular auscultation of heart Overall: normal heart sounds 04/05/2017 None Full Exam - General 1994 Cardiovascular auscultation of heart Overall: regular rate 04/05/2017 None Full Exam - General 1994 Integument inspection of skin Location: face 04/05/2017 None Full Exam - General 1994 Integument inspection of skin Rash/Lesions: vesicle 04/05/2017 None Full Exam - General 1994 Integument inspection of skin Pigmentation: erythematous 04/05/2017 None Full Exam - General 1994 Neurologic cranial nerves Overall: crainial nerves 2 - 12 grossly intact 04/05/2017 None Full Exam - General 1994 Psychiatric orientation/consciousness Overall: oriented to person, place and time 04/05/2017 None Full Exam - General 1994 Psychiatric mood and affect Overall: normal mood and affect 04/05/2017 None Full Exam - General 1994 Psychiatric appearance Overall: well-groomed, good eye contact 04/05/2017 None Full Exam - ENT Constitutional general appearance Overall: well nourished 03/22/2017 None Full Exam - ENT Constitutional general appearance Overall: well developed 03/22/2017 None Full Exam - ENT Constitutional general appearance Overall: in no acute distress 03/22/2017 None Full Exam - ENT Ears/Nose/Throat otoscopic exam Overall: external auditory canals normal 03/22/2017 None Full Exam - ENT Ears/Nose/Throat otoscopic exam Overall: tympanic membranes normal 03/22/2017 None Full Exam - ENT Ears/Nose/Throat oropharynx Overall: oral mucosa clear 03/22/2017 None Full Exam - ENT Ears/Nose/Throat oropharynx Oropharynx: a normal exam 03/22/2017 None Full Exam - ENT Ears/Nose/Throat oropharynx Posterior Pharynx: a normal exam 03/22/2017 None Full Exam - ENT Face and Head palpation Left maxillary sinus: tender 03/22/2017 None Full Exam - ENT Face and Head palpation Right maxillary sinus: tender 03/22/2017 None Full Exam - ENT Face and Head palpation Left frontal sinus: tender 03/22/2017 None Full Exam - ENT Face and Head palpation Right frontal sinus: tender 03/22/2017 None Full Exam - ENT Respiratory auscultation Overall: breath sounds clear bilaterally 03/22/2017 None Full Exam - ENT Cardiovascular auscultation of heart Overall: regular rate 03/22/2017 None Full Exam - ENT Cardiovascular auscultation of heart Overall: normal heart sounds 03/22/2017 None Full Exam - ENT Cardiovascular auscultation of heart Overall: no murmurs 03/22/2017 None Full Exam - ENT Lymphatic palpation of lymph nodes Overall: shotty lymphadenopathy 03/22/2017 None Full Exam - ENT Neurologic orientation Overall: oriented to person, place and time 03/22/2017 None Full Exam - ENT Constitutional general appearance Overall: well nourished 02/24/2017 None Full Exam - ENT Constitutional general appearance Overall: well developed 02/24/2017 None Full Exam - ENT Constitutional general appearance Overall: in no acute distress 02/24/2017 None Full Exam - ENT Ears/Nose/Throat otoscopic exam Overall: external auditory canals normal 02/24/2017 None Full Exam - ENT Ears/Nose/Throat otoscopic exam Left tympanic membrane: air-fluid level 02/24/2017 None Full Exam - ENT Ears/Nose/Throat otoscopic exam Right tympanic membrane: air-fluid level 02/24/2017 None Full Exam - ENT Ears/Nose/Throat nasal mucosa, septum, turbinates Drainage: clear 02/24/2017 None Full Exam - ENT Ears/Nose/Throat nasal mucosa, septum, turbinates Drainage: yellow 02/24/2017 None Full Exam - ENT Ears/Nose/Throat lips/teeth/gingiva Overall: benign lips 02/24/2017 None Full Exam - ENT Ears/Nose/Throat oropharynx Posterior Pharynx: clear post nasal drainage 02/24/2017 None Full Exam - ENT Face and Head palpation Left maxillary sinus: tender 02/24/2017 None Full Exam - ENT Face and Head palpation Right maxillary sinus: tender 02/24/2017 None Full Exam - ENT Respiratory inspection Overall: no retractions 02/24/2017 None Full Exam - ENT Respiratory inspection Overall: normal rate 02/24/2017 None Full Exam - ENT Respiratory auscultation Overall: breath sounds clear bilaterally 02/24/2017 None Full Exam - ENT Cardiovascular auscultation of heart Overall: regular rate 02/24/2017 None Full Exam - ENT Cardiovascular auscultation of heart Overall: normal heart sounds 02/24/2017 None Full Exam - ENT Lymphatic palpation of lymph nodes Overall: anterior cervical chain benign 02/24/2017 None Full Exam - ENT Lymphatic palpation of lymph nodes Overall: posterior cervical chain benign 02/24/2017 None Full Exam - ENT Neurologic mood and affect Overall: normal mood 02/24/2017 None Full Exam - ENT Neurologic mood and affect Overall: normal affect 02/24/2017 None Full Exam - ENT Neurologic orientation Overall: oriented to person, place and time 02/24/2017 None Full Exam - ENT Ears/Nose/Throat otoscopic exam Right tympanic membrane: erythematous 02/24/2017 None Full Exam - ENT Ears/Nose/Throat oropharynx Posterior Pharynx: erythema 02/24/2017 None Full Exam - ENT Constitutional general appearance Overall: well nourished 08/20/2016 None Full Exam - ENT Constitutional general appearance Overall: well developed 08/20/2016 None Full Exam - ENT Constitutional general appearance Overall: in no acute distress 08/20/2016 None Full Exam - ENT Neurologic orientation Overall: oriented to person, place and time 08/20/2016 None Full Exam - ENT Integument inspection of skin Overall: no rash, lesions 08/20/2016 None Full Exam - ENT Musculoskeletal spine, ribs and pelvis Overall: good posture 08/20/2016 None Full Exam - ENT Lymphatic palpation of lymph nodes Overall: anterior cervical chain benign 08/20/2016 None Full Exam - ENT Lymphatic palpation of lymph nodes Overall: posterior cervical chain benign 08/20/2016 None Full Exam - ENT Cardiovascular auscultation of heart Overall: regular rate 08/20/2016 None Full Exam - ENT Cardiovascular auscultation of heart Overall: normal heart sounds 08/20/2016 None Full Exam - ENT Respiratory inspection Overall: no retractions 08/20/2016 None Full Exam - ENT Respiratory inspection Overall: normal rate 08/20/2016 None Full Exam - ENT Respiratory auscultation Overall: breath sounds clear bilaterally 08/20/2016 None Full Exam - ENT Face and Head palpation Overall: no sinus tenderness 08/20/2016 None Full Exam - ENT Ears/Nose/Throat otoscopic exam Overall: external auditory canals normal 08/20/2016 None Full Exam - ENT Ears/Nose/Throat otoscopic exam Overall: tympanic membranes normal 08/20/2016 None Full Exam - ENT Ears/Nose/Throat oropharynx Posterior Pharynx: erythema 08/20/2016 None Full Exam - Orthopedics Constitutional general appearance Overall: well nourished 06/10/2016 None Full Exam - Orthopedics Constitutional general appearance Overall: well developed 06/10/2016 None Full Exam - Orthopedics Constitutional general appearance Overall: in no acute distress 06/10/2016 None Full Exam - Orthopedics Eyes conjunctiva/eyelids Overall: conjunctiva clear 06/10/2016 None Full Exam - Orthopedics Eyes conjunctiva/eyelids Overall: eyelids normal 06/10/2016 None Full Exam - Orthopedics Ears/Nose/Throat lips/teeth/gingiva Overall: benign lips 06/10/2016 None Full Exam - Orthopedics Ears/Nose/Throat oral cavity/pharynx/larynx Overall: oral mucosa clear 06/10/2016 None Full Exam - Orthopedics Respiratory respiratory effort/rhythm Overall: no retractions 06/10/2016 None Full Exam - Orthopedics Respiratory respiratory effort/rhythm Overall: normal rate 06/10/2016 None Full Exam - Orthopedics Psychiatric orientation/consciousness Overall: oriented to person, place and time 06/10/2016 None Full Exam - Orthopedics Psychiatric mood and affect Overall: normal mood and affect 06/10/2016 None Full Exam - Orthopedics Psychiatric appearance Overall: well-groomed, good eye contact 06/10/2016 None Full Exam - Orthopedics MS: right upper extremity insp & palp - RUE Shoulder: glenohumeral joint tenderness 06/10/2016 None Full Exam - Orthopedics MS: right upper extremity insp & palp - RUE Shoulder: acromioclavicular joint tenderness 06/10/2016 None Full Exam - Orthopedics MS: right upper extremity range of motion - RUE Shoulder: pain with flexion 06/10/2016 None Full Exam - Orthopedics MS: right upper extremity range of motion - RUE Shoulder: pain with extension 06/10/2016 None Full Exam - Orthopedics MS: right upper extremity range of motion - RUE Shoulder: pain with external rotation 06/10/2016 None Full Exam - Orthopedics MS: right upper extremity range of motion - RUE Shoulder: pain with internal rotation 06/10/2016 None Full Exam - Dermatology Constitutional general appearance Overall: well nourished 02/07/2016 None Full Exam - Dermatology Constitutional general appearance Overall: well developed 02/07/2016 None Full Exam - Dermatology Constitutional general appearance Overall: in no acute distress 02/07/2016 None Full Exam - Dermatology Psychiatric orientation Overall: oriented to person, place and time 02/07/2016 None Full Exam - Dermatology Integument insp & palp - right lower extremity Location: on the ankle 02/07/2016 None Full Exam - Dermatology Integument insp & palp - right lower extremity Color: hyperpigmented 02/07/2016 None Full Exam - ENT Constitutional general appearance Overall: well nourished 01/08/2016 None Full Exam - ENT Constitutional general appearance Overall: well developed 01/08/2016 None Full Exam - ENT Constitutional general appearance Overall: in no acute distress 01/08/2016 None Full Exam - ENT Ears/Nose/Throat otoscopic exam Overall: external auditory canals normal 01/08/2016 None Full Exam - ENT Ears/Nose/Throat oropharynx Overall: oral mucosa clear 01/08/2016 None Full Exam - ENT Face and Head palpation Left maxillary sinus: tender 01/08/2016 None Full Exam - ENT Face and Head palpation Right maxillary sinus: tender 01/08/2016 None Full Exam - ENT Face and Head palpation Left frontal sinus: tender 01/08/2016 None Full Exam - ENT Face and Head palpation Right frontal sinus: tender 01/08/2016 None Full Exam - ENT Respiratory auscultation Overall: breath sounds clear bilaterally 01/08/2016 None Full Exam - ENT Cardiovascular auscultation of heart Overall: regular rate 01/08/2016 None Full Exam - ENT Cardiovascular auscultation of heart Overall: normal heart sounds 01/08/2016 None Full Exam - ENT Lymphatic palpation of lymph nodes Overall: shotty lymphadenopathy 01/08/2016 None Full Exam - ENT Neurologic orientation Overall: oriented to person, place and time 01/08/2016 None Full Exam - ENT Ears/Nose/Throat otoscopic exam Left tympanic membrane: air-fluid level 01/08/2016 None Full Exam - ENT Ears/Nose/Throat otoscopic exam Right tympanic membrane: air-fluid level 01/08/2016 None Full Exam - ENT Ears/Nose/Throat oropharynx Posterior Pharynx: clear post nasal drainage 01/08/2016 None Full Exam - ENT Respiratory inspection Overall: no retractions 01/08/2016 None Full Exam - ENT Respiratory inspection Overall: normal rate 01/08/2016 None Full Exam - ENT Constitutional general appearance Overall: well nourished 07/30/2015 None Full Exam - ENT Constitutional general appearance Overall: well developed 07/30/2015 None Full Exam - ENT Constitutional general appearance Overall: in no acute distress 07/30/2015 None Full Exam - ENT Ears/Nose/Throat otoscopic exam Overall: external auditory canals normal 07/30/2015 None Full Exam - ENT Ears/Nose/Throat otoscopic exam Overall: tympanic membranes normal 07/30/2015 None Full Exam - ENT Ears/Nose/Throat oropharynx Overall: oral mucosa clear 07/30/2015 None Full Exam - ENT Ears/Nose/Throat oropharynx Oropharynx: a normal exam 07/30/2015 None Full Exam - ENT Ears/Nose/Throat oropharynx Posterior Pharynx: a normal exam 07/30/2015 None Full Exam - ENT Face and Head palpation Left maxillary sinus: tender 07/30/2015 None Full Exam - ENT Face and Head palpation Right maxillary sinus: tender 07/30/2015 None Full Exam - ENT Face and Head palpation Left frontal sinus: tender 07/30/2015 None Full Exam - ENT Face and Head palpation Right frontal sinus: tender 07/30/2015 None Full Exam - ENT Respiratory auscultation Overall: breath sounds clear bilaterally 07/30/2015 None Full Exam - ENT Cardiovascular auscultation of heart Overall: regular rate 07/30/2015 None Full Exam - ENT Cardiovascular auscultation of heart Overall: normal heart sounds 07/30/2015 None Full Exam - ENT Cardiovascular auscultation of heart Overall: no murmurs 07/30/2015 None Full Exam - ENT Lymphatic palpation of lymph nodes Overall: shotty lymphadenopathy 07/30/2015 None Full Exam - ENT Neurologic orientation Overall: oriented to person, place and time 07/30/2015 None Full Exam - General 1994 Psychiatric orientation/consciousness Overall: oriented to person, place and time 03/22/2015 None Full Exam - General 1994 Neurologic deep tendon reflexes Overall: deep tendon reflexes intact 03/22/2015 None Full Exam - General 1994 Neurologic cranial nerves Overall: crainial nerves 2 - 12 grossly intact 03/22/2015 None Full Exam - General 1994 Integument inspection of skin Overall: no rash, lesions 03/22/2015 None Full Exam - General 1994 Musculoskeletal gait and station Overall: normal station 03/22/2015 None Full Exam - General 1994 Musculoskeletal gait and station Overall: normal gait 03/22/2015 None Full Exam - General 1994 Musculoskeletal head and neck Overall: cervical spine benign 03/22/2015 None Full Exam - General 1994 Musculoskeletal head and neck Overall: head atraumatic 03/22/2015 None Full Exam - General 1994 Lymphatic neck nodes Overall: anterior cervical chain benign 03/22/2015 None Full Exam - General 1994 Lymphatic neck nodes Overall: posterior cervical chain benign 03/22/2015 None Full Exam - General 1994 Abdomen abdominal exam Overall: no tenderness 03/22/2015 None Full Exam - General 1994 Abdomen abdominal exam Overall: normal bowel sounds 03/22/2015 None Full Exam - General 1994 Cardiovascular auscultation of heart Overall: regular rate 03/22/2015 None Full Exam - General 1994 Cardiovascular auscultation of heart Overall: normal heart sounds 03/22/2015 None Full Exam - General 1994 Cardiovascular auscultation of heart Overall: no murmurs 03/22/2015 None Full Exam - General 1994 Respiratory auscultation Overall: breath sounds clear bilaterally 03/22/2015 None Full Exam - General 1994 Respiratory respiratory effort/rhythm Overall: normal rate 03/22/2015 None Full Exam - General 1994 Respiratory respiratory effort/rhythm Overall: no retractions 03/22/2015 None Full Exam - General 1994 Ears/Nose/Throat otoscopic exam Overall: tympanic membranes clear 03/22/2015 None Full Exam - General 1994 Ears/Nose/Throat otoscopic exam Overall: external auditory canals clear 03/22/2015 None Full Exam - General 1994 Ears/Nose/Throat oral cavity/pharynx/larynx Overall: oropharyngeal mucosa clear 03/22/2015 None Full Exam - General 1994 Ears/Nose/Throat oral cavity/pharynx/larynx Overall: no masses 03/22/2015 None Full Exam - General 1994 Ears/Nose/Throat oral cavity/pharynx/larynx Overall: oral mucosa clear 03/22/2015 None Full Exam - General 1994 Eyes conjunctiva/eyelids Overall: conjunctiva clear 03/22/2015 None Full Exam - General 1994 Eyes conjunctiva/eyelids Overall: eyelids normal 03/22/2015 None Full Exam - General 1994 Eyes conjunctiva/eyelids Overall: cornea clear 03/22/2015 None Full Exam - General 1994 Eyes pupils and irises Overall: pupils equal, round, reactive to light and accomodation 03/22/2015 None Full Exam - General 1994 Constitutional general appearance Overall: well nourished 03/22/2015 None Full Exam - General 1994 Constitutional general appearance Overall: well developed 03/22/2015 None Full Exam - General 1994 Constitutional general appearance Overall: in no acute distress 03/22/2015 None Full Exam - ENT Ears/Nose/Throat oropharynx Overall: oral mucosa clear 06/20/2012 None Full Exam - ENT Constitutional general appearance Overall: well nourished 06/20/2012 None Full Exam - ENT Constitutional general appearance Overall: well developed 06/20/2012 None Full Exam - ENT Constitutional general appearance Overall: in no acute distress 06/20/2012 None Full Exam - ENT Neurologic orientation Overall: oriented to person, place and time 06/20/2012 None Full Exam - ENT Lymphatic palpation of lymph nodes Overall: anterior cervical chain benign 06/20/2012 None Full Exam - ENT Lymphatic palpation of lymph nodes Overall: posterior cervical chain benign 06/20/2012 None Full Exam - ENT Cardiovascular auscultation of heart Overall: regular rate 06/20/2012 None Full Exam - ENT Cardiovascular auscultation of heart Overall: normal heart sounds 06/20/2012 None Full Exam - ENT Cardiovascular auscultation of heart Overall: no murmurs 06/20/2012 None Full Exam - ENT Respiratory auscultation Overall: breath sounds clear bilaterally 06/20/2012 None Full Exam - ENT Face and Head palpation Overall: no sinus tenderness 06/20/2012 None Full Exam - ENT Ears/Nose/Throat otoscopic exam Overall: external auditory canals normal 06/20/2012 None Full Exam - ENT Ears/Nose/Throat otoscopic exam Overall: tympanic membranes normal 06/20/2012 None Full Exam - General 1994 Constitutional general appearance Development: well developed 03/18/2012 None Full Exam - General 1994 Constitutional general appearance Development: appears stated age 1003/18/2012 None Full Exam - General 1994 Psychiatric orientation/consciousness Overall: oriented to person, place and time 03/18/2012 None Full Exam - General 1994 Integument inspection of skin Overall: no rash, lesions 03/18/2012 None Full Exam - General 1994 Genitourinary penis Overall: no lesions, no discharge 03/18/2012 None Full Exam - General 1994 Eyes conjunctiva/eyelids Overall: conjunctiva clear 03/18/2012 None Full Exam - ENT Constitutional general appearance Overall: well nourished 06/30/2011 None Full Exam - ENT Constitutional general appearance Overall: well developed 06/30/2011 None Full Exam - ENT Constitutional general appearance Overall: in no acute distress 06/30/2011 None Full Exam - ENT Lymphatic palpation of lymph nodes Overall: shotty lymphadenopathy 06/30/2011 None Full Exam - ENT Ears/Nose/Throat otoscopic exam Overall: external auditory canals normal 06/30/2011 None Full Exam - ENT Ears/Nose/Throat otoscopic exam Overall: tympanic membranes normal 06/30/2011 None Full Exam - ENT Ears/Nose/Throat oropharynx Overall: oral mucosa clear 06/30/2011 None Full Exam - ENT Ears/Nose/Throat oropharynx Oropharynx: a normal exam 06/30/2011 None Full Exam - ENT Ears/Nose/Throat oropharynx Posterior Pharynx: a normal exam 06/30/2011 None Full Exam - ENT Face and Head palpation Left maxillary sinus: tender 06/30/2011 None Full Exam - ENT Face and Head palpation Right maxillary sinus: tender 06/30/2011 None Full Exam - ENT Face and Head palpation Left frontal sinus: tender 06/30/2011 None Full Exam - ENT Face and Head palpation Right frontal sinus: tender 06/30/2011 None Full Exam - ENT Respiratory auscultation Overall: breath sounds clear bilaterally 06/30/2011 None Full Exam - ENT Cardiovascular auscultation of heart Overall: regular rate 06/30/2011 None Full Exam - ENT Cardiovascular auscultation of heart Overall: normal heart sounds 06/30/2011 None Full Exam - ENT Cardiovascular auscultation of heart Overall: no murmurs 06/30/2011 None Full Exam - ENT Neurologic orientation Overall: oriented to person, place and time 06/30/2011 None Full Exam - General 1994 Constitutional general appearance Overall: well nourished 03/09/2011 None Full Exam - General 1994 Constitutional general appearance Overall: well developed 03/09/2011 None Full Exam - General 1994 Constitutional general appearance Overall: in no acute distress 03/09/2011 None Full Exam - General 1994 Eyes pupils and irises Overall: pupils equal, round, reactive to light and accomodation 03/09/2011 None Full Exam - General 1994 Ears/Nose/Throat oral cavity/pharynx/larynx Overall: oropharyngeal mucosa clear 03/09/2011 None Full Exam - General 1994 Ears/Nose/Throat oral cavity/pharynx/larynx Overall: no masses 03/09/2011 None Full Exam - General 1994 Ears/Nose/Throat oral cavity/pharynx/larynx Overall: oral mucosa clear 03/09/2011 None Full Exam - General 1994 Respiratory respiratory effort/rhythm Overall: normal rate 03/09/2011 None Full Exam - General 1994 Respiratory respiratory effort/rhythm Overall: no retractions 03/09/2011 None Full Exam - General 1994 Respiratory auscultation Overall: breath sounds clear bilaterally 03/09/2011 None Full Exam - General 1994 Cardiovascular auscultation of heart Overall: regular rate 03/09/2011 None Full Exam - General 1994 Cardiovascular auscultation of heart Overall: normal heart sounds 03/09/2011 None Full Exam - General 1994 Cardiovascular auscultation of heart Overall: no murmurs 03/09/2011 None Full Exam - General 1994 Abdomen abdominal exam Overall: no tenderness 03/09/2011 None Full Exam - General 1994 Abdomen abdominal exam Overall: normal bowel sounds 03/09/2011 None Full Exam - General 1994 Abdomen liver and spleen exam Overall: no hepatosplenomegaly 03/09/2011 None Full Exam - General 1994 Abdomen liver and spleen exam Overall: no stigmata of chronic liver disease 03/09/2011 None Full Exam - General 1994 Musculoskeletal head and neck Overall: cervical spine benign 03/09/2011 None Full Exam - General 1994 Musculoskeletal head and neck Overall: head atraumatic 03/09/2011 None Full Exam - General 1994 Neurologic cranial nerves Overall: crainial nerves 2 - 12 grossly intact 03/09/2011 None Full Exam - General 1994 Psychiatric orientation/consciousness Overall: oriented to person, place and time 03/09/2011 None Full Exam - General 1994 Psychiatric mood and affect Overall: normal mood and affect 03/09/2011 None Full Exam - General Constitutional general appearance Overall: well developed 01/12/2011 None Full Exam - General Constitutional general appearance Overall: well nourished 01/12/2011 None Full Exam - General Constitutional general appearance Stature/Body Habitus: tall stature 01/12/2011 None Full Exam - General Constitutional general appearance Hygiene/Attention to Grooming: good hygiene 01/12/2011 None Full Exam - General Eyes conjunctiva/eyelids Overall: cornea clear 01/12/2011 None Full Exam - General Eyes conjunctiva/eyelids Overall: eyelids normal 01/12/2011 None Full Exam - General Eyes conjunctiva/eyelids Overall: conjunctiva clear 01/12/2011 None Full Exam - General Psychiatric mood and affect Affect: a normal exam 01/12/2011 None Full Exam - General Ears/Nose/Throat external ear Right auricle: a normal exam 01/12/2011 None Full Exam - General Ears/Nose/Throat external ear Mass: nontender 01/12/2011 None Full Exam - General Ears/Nose/Throat external ear Mass: soft 01/12/2011 None Full Exam - General Ears/Nose/Throat external ear Left auricle: a normal exam 01/12/2011 None Full Exam - General Ears/Nose/Throat external ear Left auricle: nontender 01/12/2011 None Full Exam - General Ears/Nose/Throat external ear Left mastoid: nontender 01/12/2011 None Full Exam - General Ears/Nose/Throat external ear Right mastoid: nontender 01/12/2011 None Full Exam - General Constitutional general appearance Overall: in no acute distress 01/12/2011 None Full Exam - General Ears/Nose/Throat external ear Overall: normal appearance 01/12/2011 None Full Exam - General Ears/Nose/Throat otoscopic exam Right tympanic membrane: a normal exam 01/12/2011 None Full Exam - General Ears/Nose/Throat otoscopic exam Right external auditory canal: a normal exam 01/12/2011 None Full Exam - General Ears/Nose/Throat otoscopic exam Right external auditory canal: nontender 01/12/2011 None Full Exam - General Ears/Nose/Throat otoscopic exam Left external auditory canal: a normal exam 01/12/2011 None Full Exam - General Ears/Nose/Throat otoscopic exam Left external auditory canal: nontender 01/12/2011 None Full Exam - General Eyes pupils and irises Right pupil: a normal exam 01/12/2011 None Full Exam - General Eyes pupils and irises Overall: pupils equal, round, reactive to light and accomodation 01/12/2011 None Full Exam - General Eyes pupils and irises Left pupil: a normal exam 01/12/2011 None Full Exam - General Ears/Nose/Throat external ear Right auricle: nontender 01/12/2011 None Full Exam - General Ears/Nose/Throat otoscopic exam Overall: tympanic membranes clear 01/12/2011 None Full Exam - General Ears/Nose/Throat otoscopic exam Overall: external auditory canals clear 01/12/2011 None Full Exam - General Ears/Nose/Throat otoscopic exam [place]: a normal exam 01/12/2011 None Full Exam - General Ears/Nose/Throat otoscopic exam Left tympanic membrane: a normal exam 01/12/2011 None Full Exam - General Ears/Nose/Throat oral cavity/pharynx/larynx Right tonsil: a normal exam 01/12/2011 None Full Exam - General Ears/Nose/Throat oral cavity/pharynx/larynx Left submandibular gland: a normal exam 01/12/2011 None Full Exam - General Ears/Nose/Throat oral cavity/pharynx/larynx Left submandibular gland: soft 01/12/2011 None Full Exam - General Ears/Nose/Throat oral cavity/pharynx/larynx Left submandibular gland: nontender 01/12/2011 None Full Exam - General Ears/Nose/Throat oral cavity/pharynx/larynx Larynx: a normal exam 01/12/2011 None Full Exam - General Ears/Nose/Throat oral cavity/pharynx/larynx Soft palate: a normal exam 01/12/2011 None Full Exam - General Ears/Nose/Throat oral cavity/pharynx/larynx Hard palate: a normal exam 01/12/2011 None Full Exam - General Ears/Nose/Throat oral cavity/pharynx/larynx Overall: larynx benign 01/12/2011 None Full Exam - General Ears/Nose/Throat oral cavity/pharynx/larynx Overall: floor of mouth benign 01/12/2011 None Full Exam - General Ears/Nose/Throat oral cavity/pharynx/larynx Overall: retromolar trigone benign 01/12/2011 None Full Exam - General Ears/Nose/Throat oral cavity/pharynx/larynx Overall: hard palate benign 01/12/2011 None Full Exam - General Ears/Nose/Throat oral cavity/pharynx/larynx Overall: tonsils benign 01/12/2011 None Full Exam - General Ears/Nose/Throat oral cavity/pharynx/larynx Overall: salivary glands benign 01/12/2011 None Full Exam - General Ears/Nose/Throat oral cavity/pharynx/larynx Overall: no masses 01/12/2011 None Full Exam - General Ears/Nose/Throat oral cavity/pharynx/larynx Overall: mobile tongue benign 01/12/2011 None Full Exam - General Ears/Nose/Throat oral cavity/pharynx/larynx Overall: hypopharynx benign 01/12/2011 None Full Exam - General Ears/Nose/Throat oral cavity/pharynx/larynx Overall: oropharyngeal mucosa clear 01/12/2011 None Full Exam - General Ears/Nose/Throat oral cavity/pharynx/larynx Overall: oral mucosa clear 01/12/2011 None Full Exam - General Ears/Nose/Throat oral cavity/pharynx/larynx Overall: soft palate benign 01/12/2011 None Full Exam - General Ears/Nose/Throat oral cavity/pharynx/larynx Overall: base of tongue benign 01/12/2011 None Full Exam - General Ears/Nose/Throat oral cavity/pharynx/larynx Retromolar trigone: a normal exam 01/12/2011 None Full Exam - General Ears/Nose/Throat oral cavity/pharynx/larynx Hypopharynx: a normal exam 01/12/2011 None Full Exam - General Ears/Nose/Throat oral cavity/pharynx/larynx Mobile tongue: soft 01/12/2011 None Full Exam - General Ears/Nose/Throat oral cavity/pharynx/larynx Mobile tongue: nontender 01/12/2011 None Full Exam - General Ears/Nose/Throat oral cavity/pharynx/larynx Mobile tongue: a normal exam 01/12/2011 None Full Exam - General Ears/Nose/Throat oral cavity/pharynx/larynx Oropharynx: a normal exam 01/12/2011 None Full Exam - General Ears/Nose/Throat oral cavity/pharynx/larynx Left tonsil: a normal exam 01/12/2011 None Full Exam - General Ears/Nose/Throat oral cavity/pharynx/larynx Posterior Pharynx: a normal exam 01/12/2011 None Full Exam - General Ears/Nose/Throat oral cavity/pharynx/larynx Floor of mouth: soft 01/12/2011 None Full Exam - General Ears/Nose/Throat oral cavity/pharynx/larynx Floor of mouth: a normal exam 01/12/2011 None Full Exam - General Ears/Nose/Throat oral cavity/pharynx/larynx Floor of mouth: nontender 01/12/2011 None Full Exam - General Ears/Nose/Throat oral cavity/pharynx/larynx Base of tongue: a normal exam 01/12/2011 None Full Exam - General Ears/Nose/Throat oral cavity/pharynx/larynx Base of tongue: soft 01/12/2011 None Full Exam - General Ears/Nose/Throat oral cavity/pharynx/larynx Right parotid: soft 01/12/2011 None Full Exam - General Ears/Nose/Throat oral cavity/pharynx/larynx Right parotid: nontender 01/12/2011 None Full Exam - General Ears/Nose/Throat oral cavity/pharynx/larynx Right parotid: a normal exam 01/12/2011 None Full Exam - General Ears/Nose/Throat oral cavity/pharynx/larynx Right submandibular gland: a normal exam 01/12/2011 None Full Exam - General Ears/Nose/Throat oral cavity/pharynx/larynx Right submandibular gland: nontender 01/12/2011 None Full Exam - General Ears/Nose/Throat oral cavity/pharynx/larynx Right submandibular gland: soft 01/12/2011 None Full Exam - General Ears/Nose/Throat oral cavity/pharynx/larynx Oral mucosa: a normal exam 01/12/2011 None Full Exam - General Ears/Nose/Throat oral cavity/pharynx/larynx Mass: nontender 01/12/2011 None Full Exam - General Ears/Nose/Throat oral cavity/pharynx/larynx Mass: soft 01/12/2011 None Full Exam - General Ears/Nose/Throat oral cavity/pharynx/larynx Left parotid: a normal exam 01/12/2011 None Full Exam - General Ears/Nose/Throat oral cavity/pharynx/larynx Left parotid: soft 01/12/2011 None Full Exam - General Ears/Nose/Throat oral cavity/pharynx/larynx Left parotid: nontender 01/12/2011 None Full Exam - General Ears/Nose/Throat lips/teeth/gingiva Lips: a normal exam 01/12/2011 None Full Exam - General Ears/Nose/Throat lips/teeth/gingiva Overall: benign lips 01/12/2011 None Full Exam - General Ears/Nose/Throat lips/teeth/gingiva Overall: normal dentition 01/12/2011 None Full Exam - General Ears/Nose/Throat lips/teeth/gingiva Overall: no masses 01/12/2011 None Full Exam - General Ears/Nose/Throat lips/teeth/gingiva Overall: benign gingiva 01/12/2011 None Full Exam - General Ears/Nose/Throat lips/teeth/gingiva Occlusion: a normal exam 01/12/2011 None Full Exam - General Ears/Nose/Throat lips/teeth/gingiva Gingiva: a normal exam 01/12/2011 None Full Exam - General Ears/Nose/Throat lips/teeth/gingiva Teeth: a normal exam 01/12/2011 None Full Exam - General Neck thyroid Overall: normal size 01/12/2011 None Full Exam - General Neck thyroid Overall: no mass lesions 01/12/2011 None Full Exam - General Neck thyroid Size: a normal exam 01/12/2011 None Full Exam - General Respiratory respiratory effort/rhythm Rhythm: a normal exam 01/12/2011 None Full Exam - General Respiratory respiratory effort/rhythm Rate: a normal exam 01/12/2011 None Full Exam - General Respiratory respiratory effort/rhythm Overall: no retractions 01/12/2011 None Full Exam - General Respiratory respiratory effort/rhythm Overall: normal rate 01/12/2011 None Full Exam - General Respiratory auscultation Right upper lung field: a normal exam 01/12/2011 None Full Exam - General Respiratory auscultation Right middle lung field: a normal exam 01/12/2011 None Full Exam - General Respiratory auscultation Right lower lung field: a normal exam 01/12/2011 None Full Exam - General Respiratory auscultation Left lower lung field: a normal exam 01/12/2011 None Full Exam - General Respiratory auscultation Overall: breath sounds clear bilaterally 01/12/2011 None Full Exam - General Respiratory auscultation Left upper lung field: a normal exam 01/12/2011 None Full Exam - General Respiratory auscultation Diffuse: a normal exam 01/12/2011 None Full Exam - General Cardiovascular auscultation of heart Overall: no murmurs 01/12/2011 None Full Exam - General Cardiovascular auscultation of heart Overall: regular rate 01/12/2011 None Full Exam - General Cardiovascular auscultation of heart Overall: normal heart sounds 01/12/2011 None Full Exam - General Cardiovascular auscultation of heart S1: a normal exam 01/12/2011 None Full Exam - General Cardiovascular auscultation of heart S2: a normal exam 01/12/2011 None Full Exam - General Cardiovascular auscultation of heart Rhythm: regular rhythm 01/12/2011 None Full Exam - General Cardiovascular auscultation of heart Rate: regular rate 01/12/2011 None Full Exam - General Cardiovascular extremities Overall: no clubbing 01/12/2011 None Full Exam - General Abdomen abdominal exam Percussion: a normal exam 01/12/2011 None Full Exam - General Abdomen abdominal exam Periumbilical: no mass lesions 01/12/2011 None Full Exam - General Abdomen abdominal exam Periumbilical: soft 01/12/2011 None Full Exam - General Abdomen abdominal exam Epigastric: soft 01/12/2011 None Full Exam - General Abdomen abdominal exam Epigastric: no mass lesions 01/12/2011 None Full Exam - General Abdomen abdominal exam Bowel sounds: a normal exam 01/12/2011 None Full Exam - General Abdomen abdominal exam Overall: normal bowel sounds 01/12/2011 None Full Exam - General Abdomen abdominal exam Overall: no tenderness 01/12/2011 None Full Exam - General Abdomen abdominal exam Right lower quadrant: soft 01/12/2011 None Full Exam - General Abdomen abdominal exam Right lower quadrant: no mass lesions 01/12/2011 None Full Exam - General Abdomen abdominal exam Skin: a normal exam 01/12/2011 None Full Exam - General Abdomen abdominal exam Contour: scaphoid 01/12/2011 None Full Exam - General Abdomen abdominal exam Left lower quadrant: no mass lesions 01/12/2011 None Full Exam - General Abdomen abdominal exam Left lower quadrant: soft 01/12/2011 None Full Exam - General Abdomen abdominal exam Left upper quadrant: soft 01/12/2011 None Full Exam - General Abdomen abdominal exam Left upper quadrant: no mass lesions 01/12/2011 None Full Exam - General Abdomen abdominal exam Suprapubic: no mass lesions 01/12/2011 None Full Exam - General Abdomen abdominal exam Suprapubic: soft 01/12/2011 None Full Exam - General Abdomen abdominal exam Right upper quadrant: no mass lesions 01/12/2011 None Full Exam - General Abdomen abdominal exam Right upper quadrant: soft 01/12/2011 None Full Exam - General Abdomen liver and spleen exam Overall: no hepatosplenomegaly 01/12/2011 None Full Exam - General Abdomen liver and spleen exam Liver: non-tender 01/12/2011 None Full Exam - General Abdomen liver and spleen exam Liver: no hepatomegaly 01/12/2011 None Full Exam - General Abdomen liver and spleen exam Spleen: non-tender 01/12/2011 None Full Exam - General Abdomen liver and spleen exam Spleen: soft 01/12/2011 None Full Exam - General Abdomen liver and spleen exam Spleen: no splenomegaly 01/12/2011 None Full Exam - General Musculoskeletal head and neck Deformities: no deformities 01/12/2011 None Full Exam - General Musculoskeletal head and neck Cervical Spine: a normal exam 01/12/2011 None Full Exam - General Musculoskeletal head and neck Head: atraumatic 01/12/2011 None Full Exam - General Musculoskeletal head and neck Head: normocephalic 01/12/2011 None Full Exam - General Musculoskeletal head and neck Right TMJ: non-tender 01/12/2011 None Full Exam - General Musculoskeletal head and neck Right TMJ: full closing 01/12/2011 None Full Exam - General Musculoskeletal head and neck Right TMJ: a normal exam 01/12/2011 None Full Exam - General Musculoskeletal head and neck Right TMJ: normal alignment 01/12/2011 None Full Exam - General Musculoskeletal head and neck Left TMJ: a normal exam 01/12/2011 None Full Exam - General Musculoskeletal head and neck Left TMJ: normal alignment 01/12/2011 None Full Exam - General Musculoskeletal head and neck Left TMJ: full closing 01/12/2011 None Full Exam - General Musculoskeletal head and neck Left TMJ: non-tender 01/12/2011 None Full Exam - General Musculoskeletal head and neck Overall: head atraumatic 01/12/2011 None Full Exam - General Musculoskeletal head and neck Overall: cervical spine benign 01/12/2011 None Full Exam - General Musculoskeletal gait and station Overall: normal gait 01/12/2011 None Full Exam - General Neurologic deep tendon reflexes Overall: deep tendon reflexes intact 01/12/2011 None Full Exam - General Neurologic deep tendon reflexes Left (graded 0-4+ with 2+ being normal): biceps: 2 01/12/2011 None Full Exam - General Neurologic deep tendon reflexes Left (graded 0-4+ with 2+ being normal): brachioradialis: 2 01/12/2011 None Full Exam - General Neurologic deep tendon reflexes Left (graded 0-4+ with 2+ being normal): patella: 2 01/12/2011 None Full Exam - General Neurologic deep tendon reflexes Right (graded 0-4+ with 2+ being normal): biceps: 2 01/12/2011 None Full Exam - General Neurologic deep tendon reflexes Right (graded 0-4+ with 2+ being normal): brachioradialis: 2 01/12/2011 None Full Exam - General Neurologic deep tendon reflexes Right (graded 0-4+ with 2+ being normal): patella: 2 01/12/2011 None Full Exam - General Neurologic cranial nerves Overall: cranial nerves 1-12 intact 01/12/2011 None Full Exam - General Neurologic cranial nerves CN12: a normal exam 01/12/2011 None Full Exam - General Neurologic cranial nerves CN 2-right eye: a normal exam 01/12/2011 None Full Exam - General Neurologic cranial nerves CN 2-left eye: a normal exam 01/12/2011 None Full Exam - General Neurologic cranial nerves CN3,4,6: extraocular movements intact 01/12/2011 None Full Exam - General Neurologic cranial nerves Left visual field: a normal exam 01/12/2011 None Full Exam - General Neurologic cranial nerves Pupillary size: Pupils equal 01/12/2011 None Full Exam - General Neurologic cranial nerves CN7: a normal exam 01/12/2011 None Full Exam - General Neurologic cranial nerves Right visual field: a normal exam 01/12/2011 None Full Exam - General Neurologic cranial nerves Visual field: a normal exam 01/12/2011 None Full Exam - General Psychiatric orientation/consciousness Overall: oriented to person, place and time 01/12/2011 None Full Exam - General Psychiatric orientation/consciousness Level of consciousness: alert 01/12/2011 None Full Exam - General Psychiatric mood and affect Overall: normal mood and affect 01/12/2011 None Procedures Procedure Codes Date URINALYSIS NONAUTO W/O SCOPE CPT-4: 79361 06/28/2018 TRIAMCINOLONE ACET INJ NOS CPT-4: J3301 04/05/2017 TRIAMCINOLONE ACET INJ NOS CPT-4: J3301 02/24/2017 THER/PROPH/DIAG INJ SC/IM CPT-4: 75868 09/16/2016 TRIAMCINOLONE ACET INJ NOS CPT-4: J3301 09/16/2016 TRIAMCINOLONE ACET INJ NOS CPT-4: J3301 07/30/2015 TRIAMCINOLONE ACET INJ NOS CPT-4: J3301 03/22/2015 ROCEPHIN, PER 250 MG CPT- 4: J0696 03/18/2012 URINALYSIS NONAUTO W/O SCOPE CPT-4: 41524 03/17/2012 ROCEPHIN, PER 250 MG CPT- 4: J0696 06/30/2011 TRIAMCINOLONE ACET INJ NOS CPT-4: J3301 06/30/2011 Vital Signs Date Vital 10/25/2018 Blood Pressure 1: 118/74 Code: 8480-6 BMI: 23.4 Code: 48062-1 Heart Rate 1: 75 bpm Height: 6'2" SpO2: 98% Weight: 182 lbs 10/06/2018 Height: Weight: 08/08/2018 Blood Pressure 1: 122/80 Code: 8480-6 Heart Rate 1: 84 bpm Height: 6'2" SpO2: 98% 06/28/2018 Blood Pressure 1: 122/82 Code: 8480-6 BMI: 24.0 Code: 43912-7 Heart Rate 1: 91 bpm Height: 6'2" SpO2: 98% Weight: 187 lbs 02/22/2018 Blood Pressure 1: 110/80 Code: 8480-6 Heart Rate 1: 74 bpm Height: 6'2" SpO2: 98% Weight: 02/16/2018 Blood Pressure 1: 130/72 Code: 8480-6 BMI: 24.0 Code: 78126-5 Heart Rate 1: 82 bpm Height: 6'2" SpO2: 97% Weight: 187 lbs 12/20/2017 Blood Pressure 1: 128/88 Code: 8480-6 BMI: 23.1 Code: 03964-1 Heart Rate 1: 86 bpm Height: 6'2" SpO2: 98% Weight: 180 lbs 11/26/2017 Blood Pressure 1: 122/80 Code: 8480-6 BMI: 23.1 Code: 06054-2 Heart Rate 1: 56 bpm Height: 6'2" SpO2: 98% Weight: 180 lbs 07/21/2017 Blood Pressure 1: 120/78 Code: 8480-6 BMI: 21.8 Code: 16237-3 Heart Rate 1: 88 bpm Height: 6'2" SpO2: 97% Weight: 170 lbs 04/05/2017 Blood Pressure 1: 126/68 Code: 8480-6 BMI: 22.6 Code: 56163-4 Heart Rate 1: 80 bpm Height: 6'2" SpO2: 98% Weight: 176 lbs 03/22/2017 Blood Pressure 1: 120/72 Code: 8480-6 BMI: 22.5 Code: 71011-7 Heart Rate 1: 82 bpm Height: 6'2" SpO2: 98% Temperature: 36.8 (C) / 98.3 (F) Weight: 175 lbs 02/24/2017 Blood Pressure 1: 120/62 Code: 8480-6 BMI: 22.5 Code: 08574-5 Heart Rate 1: 84 bpm Height: 6'2" SpO2: 98% Weight: 175 lbs 08/20/2016 Blood Pressure 1: 126/78 Code: 8480-6 BMI: 24.1 Code: 23684-4 Heart Rate 1: 84 bpm Height: 6'2" SpO2: 98% Temperature: 37.1 (C) / 98.8 (F) Weight: 188 lbs 06/10/2016 Blood Pressure 1: 124/62 Code: 8480-6 BMI: 24.4 Code: 84853-6 Heart Rate 1: 85 bpm Height: 6'2" SpO2: 98% Weight: 190 lbs 02/07/2016 Blood Pressure 1: 128/72 Code: 8480-6 BMI: 23.6 Code: 46567-8 Heart Rate 1: 78 bpm Height: 6'2" SpO2: 96% Weight: 184 lbs 01/08/2016 Blood Pressure 1: 108/70 Code: 8480-6 BMI: 23.4 Code: 23800-5 Heart Rate 1: 84 bpm Height: 6'2" SpO2: 96% Weight: 182 lbs 07/30/2015 Blood Pressure 1: 110/64 Code: 8480-6 BMI: 22.6 Code: 45356-0 Heart Rate 1: 78 bpm Height: 6'2" SpO2: 98% Weight: 176 lbs 03/22/2015 Blood Pressure 1: 126/80 Code: 8480-6 BMI: 24.0 Code: 88886-0 Heart Rate 1: 76 bpm Height: 6'2" SpO2: 98% Weight: 187 lbs 06/20/2012 Blood Pressure 1: 110/76 Code: 8480-6 Heart Rate 1: 100 bpm Temperature: 38.7 (C) / 101.7 (F) Weight: 169 lbs 03/18/2012 Blood Pressure 1: 132/70 Code: 8480-6 Heart Rate 1: 80 bpm Weight: 160 lbs 06/30/2011 Blood Pressure 1: 110/72 Code: 8480-6 BMI: 23.9 Code: 16504-1 Heart Rate 1: 72 bpm Height: 6'2" Respiratory Rate: 20 bpm Weight: 186 lbs 03/09/2011 Blood Pressure 1: 96/58 Code: 8480-6 BMI: 23.2 Code: 11506- 5 Heart Rate 1: 80 bpm Height: 6'2" Respiratory Rate: 16 bpm Weight: 183 lbs 01/12/2011 Blood Pressure 1: 126/80 Code: 8480-6 BMI: 23.5 Code: 36679-7 Heart Rate 1: 82 bpm Height: 6'2" Respiratory Rate: 16 bpm Weight: 183 lbs Functional Status No Functional Status data History of Present Illness Symptom Name Status Result Effective Date Notes Location in the periumbilical area 10/25/2018 None Quality aching 10/25/2018 None Quality cramping 10/25/2018 None Quality intermittent 10/25/2018 None Onset and Resolution ongoing 10/25/2018 None Onset of Symptom _ months ago 10/25/2018 None Limitation on Activities does not limit activities 10/25/2018 None Frequency of Episodes decreasing 10/25/2018 None Triggers no known associated factors 10/25/2018 None Location in the RLQ 10/06/2018 None Location in the LLQ 10/06/2018 None Quality acute 10/06/2018 None Quality intermittent 10/06/2018 None Pertinent Findings Denies dyspnea 10/06/2018 None Pertinent Findings Denies fever 10/06/2018 None Pertinent Findings Denies hematemesis 10/06/2018 None Pertinent Findings Denies nausea 10/06/2018 None Quality acute 08/08/2018 None Onset and Resolution gradual in onset 08/08/2018 None Onset of Symptom 2 weeks ago 08/08/2018 None Limitation on Activities does not limit activities 08/08/2018 None Frequency of Episodes daily 08/08/2018 None Pertinent Findings Denies edema 08/08/2018 None Pertinent Findings Denies fever 08/08/2018 None Pertinent Findings Denies testicular pain 08/08/2018 None Quality acute 06/28/2018 None Onset and Resolution sudden in onset 06/28/2018 None Onset of Symptom 2 weeks ago 06/28/2018 None Pertinent Findings Denies urinary urgency 06/28/2018 None Pertinent Findings Denies polyuria 06/28/2018 None cyst Location left groin 02/22/2018 None cyst Quality acute 02/22/2018 None cyst Onset and Resolution sudden in onset 02/22/2018 None cyst Onset of Symptom 2-3 days ago 02/22/2018 None cyst Triggers no known associated factors 02/22/2018 None cyst Pertinent Findings pain 02/22/2018 None cyst Pertinent Findings Denies fever 02/22/2018 None urinary frequency Quality constant 02/16/2018 None urinary frequency Onset and Resolution ongoing 02/16/2018 None urinary frequency Onset of Symptom 1 months ago 02/16/2018 None urinary frequency Pertinent Findings bladder pain 02/16/2018 with urination knee pain Location on the left 12/20/2017 None knee pain Quality sharp pain 12/20/2017 with steps knee pain Onset of Symptom 3 days ago 12/20/2017 None knee pain Frequency of Episodes daily 12/20/2017 None knee pain Onset and Resolution sudden in onset 12/20/2017 None knee pain Limitation on Activities allows weight bearing activity 12/20/2017 with locked knee brace knee pain Mechanism of injury direct trauma 12/20/2017 None knee pain Mechanism of injury fall onto knee 12/20/2017 None knee pain Pertinent Findings decreased range of motion 12/20/2017 None knee pain Pertinent Findings limping 12/20/2017 None knee pain Pertinent Findings pain with movement 12/20/2017 None knee pain Pertinent Findings weakness 12/20/2017 None well man exam (40-65 years) Sexual Activity is monogamous 11/26/2017 None well man exam (40-65 years) Control none 11/26/2017 None well man exam (40-65 years) Nutrition and Exercise no eating disorder 11/26/2017 None well man exam (40-65 years) Nutrition and Exercise moderate exercise 11/26/2017 None well man exam (40-65 years) Lifestyle regular seatbelt use 11/26/2017 None sinus congestion Onset and Resolution ongoing 11/26/2017 None sinus congestion Onset of Symptom _ years ago 11/26/2017 None sinus congestion Severity moderate 11/26/2017 worst season he has had sinus congestion Pertinent Findings Denies decreased energy level 11/26/2017 None sinus congestion Pertinent Findings Denies fever 11/26/2017 None well man exam (40-65 years) Health Guidance fasting glucose every 3 years 11/26/2017 None well man exam (40-65 years) Health Guidance cholesterol level and lipid panel 11/26/2017 None sinus congestion Location frontal sinuses 07/21/2017 None sinus congestion Quality constant 07/21/2017 None sinus congestion Quality fullness 07/21/2017 None sinus congestion Quality pressure 07/21/2017 None sinus congestion Onset and Resolution sudden in onset 07/21/2017 None sinus congestion Onset of Symptom 2 weeks ago 07/21/2017 None sinus congestion Frequency of Episodes daily 07/21/2017 None cough Location in the throat 07/21/2017 None cough Quality constant 07/21/2017 None cough Quality hacking 07/21/2017 None cough Quality productive 07/21/2017 None cough Onset and Resolution sudden in onset 07/21/2017 None cough Onset of Symptom 2 weeks ago 07/21/2017 None cough Frequency of Episodes daily 07/21/2017 None sore throat Location diffusely 07/21/2017 None sore throat Quality constant 07/21/2017 None sore throat Quality scratchy 07/21/2017 None sore throat Onset and Resolution sudden in onset 07/21/2017 None sore throat Onset of Symptom 2 weeks ago 07/21/2017 None sore throat Frequency of Episodes daily 07/21/2017 None sore throat Pertinent Findings cough 07/21/2017 None sore throat Pertinent Findings hoarseness 07/21/2017 None sore throat Pertinent Findings nasal congestion 07/21/2017 None rash Location-Head/Neck on the left cheek 04/05/2017 None rash Location-Head/Neck on the left christianity 04/05/2017 None rash Location-Head/Neck on the forehead 04/05/2017 None rash Color erythematous 04/05/2017 None rash Onset and Resolution sudden in onset 04/05/2017 None rash Onset of Symptom 3-4 days ago 04/05/2017 None rash Pertinent Findings itching 04/05/2017 None rash Pertinent Findings Denies nausea 04/05/2017 None rash Pertinent Findings Denies fever 04/05/2017 None earache Location both ears 03/22/2017 None earache Quality acute 03/22/2017 None earache Onset and Resolution ongoing 03/22/2017 None earache Quality worsening 03/22/2017 None earache Triggers no known triggers 03/22/2017 None earache Triggers weather change 03/22/2017 None earache Alleviating Factors medication 03/22/2017 None earache Alleviating Factors rest 03/22/2017 None earache Onset of Symptom _ weeks ago 03/22/2017 None earache Severity moderate 03/22/2017 None earache Frequency of Episodes increasing 03/22/2017 None sinus congestion Location frontal sinuses 02/24/2017 None sinus congestion Quality constant 02/24/2017 None sinus congestion Quality fullness 02/24/2017 None sinus congestion Quality pain 02/24/2017 None sinus congestion Quality pressure 02/24/2017 None sinus congestion Onset and Resolution sudden in onset 02/24/2017 None sinus congestion Onset of Symptom 1 weeks ago 02/24/2017 None sinus congestion Frequency of Episodes daily 02/24/2017 None sinus congestion Pertinent Findings cough 02/24/2017 None sinus congestion Pertinent Findings decreased energy level 02/24/2017 None sinus congestion Pertinent Findings fever 02/24/2017 None sinus congestion Pertinent Findings hoarseness 02/24/2017 None sore throat Location diffusely 02/24/2017 None sore throat Quality aching 02/24/2017 None sore throat Quality constant 02/24/2017 None sore throat Quality scratchy 02/24/2017 None sore throat Onset and Resolution sudden in onset 02/24/2017 None sore throat Onset of Symptom 1 weeks ago 02/24/2017 None sore throat Frequency of Episodes daily 02/24/2017 None earache Location both ears 02/24/2017 None earache Onset and Resolution sudden in onset 02/24/2017 None earache Onset of Symptom 1 weeks ago 02/24/2017 None earache Frequency of Episodes daily 02/24/2017 None sore throat Location in the posterior pharyngeal area 08/20/2016 None sore throat Quality aching 08/20/2016 None sore throat Quality constant 08/20/2016 None sore throat Onset and Resolution sudden in onset 08/20/2016 None sore throat Onset of Symptom 4 days ago 08/20/2016 None sore throat Limitation on Activities does not limit oral intake 08/20/2016 None sore throat Significant Medical Conditions allergic rhinitis 08/20/2016 None sore throat Significant Medications acetaminophen 08/20/2016 None sore throat Triggers no known associated factors 08/20/2016 None sore throat Alleviating Factors medication 08/20/2016 None sore throat Pertinent Findings decreased energy level 08/20/2016 None sore throat Pertinent Findings cough 08/20/2016 None sore throat Pertinent Findings fever 08/20/2016 None sore throat Pertinent Findings hoarseness 08/20/2016 None sore throat Pertinent Findings ill contacts 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 Pertinent Findings nasal congestion 08/20/2016 None shoulder pain Location on the right shoulder 06/10/2016 None shoulder pain Quality chronic 06/10/2016 None shoulder pain Quality intermittent 06/10/2016 None shoulder pain Quality worsening 06/10/2016 None shoulder pain Onset and Resolution ongoing 06/10/2016 None shoulder pain Exacerbating Factors lifting 06/10/2016 None shoulder pain Exacerbating Factors exertion 06/10/2016 None shoulder pain Exacerbating Factors abduction/external rotation 06/10/2016 None shoulder pain Pertinent Findings Denies fever 06/10/2016 None skin lesion Quality non-tender 02/07/2016 None skin lesion Quality raised 02/07/2016 None skin lesion Onset of Symptom _ years ago 02/07/2016 None skin lesion Pertinent Findings Denies fever 02/07/2016 None skin lesion Location right lower leg 02/07/2016 None skin lesion Onset and Resolution ongoing 02/07/2016 None skin lesion Severity mild 02/07/2016 None skin lesion Frequency of Episodes unchanged 02/07/2016 None skin lesion Triggers no known associated factors 02/07/2016 None sinus congestion Onset and Resolution sudden in onset 01/08/2016 None sinus congestion Onset of Symptom 2 weeks ago 01/08/2016 None sinus congestion Triggers no known associated factors 01/08/2016 None sinus congestion Pertinent Findings cough 01/08/2016 None sinus congestion Pertinent Findings facial pain 01/08/2016 None sinus congestion Pertinent Findings hoarseness 01/08/2016 None sinus congestion Location on both sides 01/08/2016 None sinus congestion Quality constant 01/08/2016 None sinus congestion Quality fullness 01/08/2016 None sinus congestion Quality pain 01/08/2016 None sinus congestion Quality pressure 01/08/2016 None cough Location in the lung 07/30/2015 None cough Quality productive 07/30/2015 None cough Onset and Resolution sudden in onset 07/30/2015 None cough Onset of Symptom 4 days ago 07/30/2015 None cough Frequency of Episodes daily 07/30/2015 None sinus congestion Onset and Resolution sudden in onset 07/30/2015 None sinus congestion Onset of Symptom 4 days ago 07/30/2015 None sinus congestion Quality fullness 07/30/2015 None sinus congestion Quality pressure 07/30/2015 None sinus congestion Location on both sides 07/30/2015 None sinus congestion Pertinent Findings cough 07/30/2015 None earache Location right ear 07/30/2015 None earache Onset and Resolution sudden in onset 07/30/2015 None earache Onset of Symptom 4 days ago 07/30/2015 None earache Frequency of Episodes daily 07/30/2015 None earache Triggers no known triggers 07/30/2015 None nasal allergies Location in both nares 03/22/2015 None nasal allergies Onset and Resolution ongoing 03/22/2015 None nasal allergies Pertinent Findings cough 03/22/2015 None nasal allergies Pertinent Findings Denies fever 03/22/2015 None well man exam (18-39 years) Sexual Activity is monogamous 03/22/2015 None well man exam (18-39 years) Nutrition and Exercise normal weight 03/22/2015 None well man exam (18-39 years) Health Guidance regular exercise 03/22/2015 None sinus congestion Onset of Symptom 5 hours ago 06/20/2012 None sinus congestion Severity moderate 06/20/2012 None sore throat Location on the right 06/20/2012 None sore throat Quality scratchy 06/20/2012 None sore throat Pertinent Findings Denies cough 06/20/2012 None sore throat Pertinent Findings nasal congestion 06/20/2012 None sinus congestion Onset and Resolution sudden in onset 06/20/2012 None sinus congestion Triggers position change 06/20/2012 None sinus congestion Pertinent Findings decreased energy level 06/20/2012 None sinus congestion Pertinent Findings Denies cough 06/20/2012 None sinus congestion Pertinent Findings Denies facial pain 06/20/2012 None sinus congestion Pertinent Findings Denies vomiting 06/20/2012 None sore throat Onset and Resolution sudden in onset 06/20/2012 None sore throat Pertinent Findings Denies vomiting 06/20/2012 None dysuria Onset and Resolution ongoing 03/18/2012 None dysuria Limitation on Activities does not limit urination 03/18/2012 None dysuria Triggers sexual intercourse 03/18/2012 None dysuria Pertinent Findings Denies chills 03/18/2012 None dysuria Pertinent Findings Denies nausea 03/18/2012 None dysuria Pertinent Findings Denies pelvic pain 03/18/2012 None dysuria Pertinent Findings Denies polyuria 03/18/2012 None dysuria Pertinent Findings Denies testicular pain 03/18/2012 None dysuria Pertinent Findings Denies urinary urgency 03/18/2012 None dysuria Pertinent Findings Denies vomiting 03/18/2012 None dysuria Pertinent Findings Denies unprotected sexual intercourse 03/18/2012 used a condomn dysuria Quality acute 03/18/2012 States he is from his x 8 months. Did have a single sexual encounter 2 weeks ago. Not sure if the pain started before then or not. Denies discharge, penile lesions, scrotal pain, or other symptoms. dysuria Onset of Symptom 1 weeks ago 03/18/2012 None sinus congestion Onset of Symptom 2 weeks ago 06/30/2011 None sore throat Onset of Symptom 2 weeks ago 06/30/2011 None cough Location in the lung 06/30/2011 None cough Location in the throat 06/30/2011 None cough Onset of Symptom 2 weeks ago 06/30/2011 None sinus congestion Severity moderate 06/30/2011 None sinus congestion Alleviating Factors medication 06/30/2011 -zyrtec and nyquil help some sore throat Location diffusely 06/30/2011 None sore throat Quality acute 06/30/2011 None sore throat Onset and Resolution ongoing 06/30/2011 None sore throat Limitation on Activities does not limit oral intake 06/30/2011 None sore throat Frequency of Episodes increasing 06/30/2011 None cough Quality acute 06/30/2011 None cough Onset and Resolution ongoing 06/30/2011 None cough Limitation on Activities does not limit activities 06/30/2011 None cough Frequency of Episodes increasing 06/30/2011 None cough Triggers ill contacts 06/30/2011 None abdominal pain Location diffusely 03/09/2011 None abdominal pain Quality cramping 03/09/2011 None abdominal pain Quality dull 03/09/2011 None gastroesophageal reflux Quality chronic 03/09/2011 None gastroesophageal reflux Quality regurgitation of acid 03/09/2011 None gastroesophageal reflux Onset of Symptom during adulthood 03/09/2011 None gastroesophageal reflux Onset and Resolution ongoing 03/09/2011 None gastroesophageal reflux Onset of Symptom 3- 4 years ago 03/09/2011 None gastroesophageal reflux Severity moderate 03/09/2011 None gastroesophageal reflux Frequency of Episodes most meals 03/09/2011 None gastroesophageal reflux Pertinent Findings bloating 03/09/2011 None gastroesophageal reflux Pertinent Findings Denies nausea 03/09/2011 None gastroesophageal reflux Pertinent Findings heartburn 03/09/2011 None abdominal pain Onset and Resolution gradual in onset 03/09/2011 None abdominal pain Onset and Resolution ongoing 03/09/2011 None abdominal pain Onset of Symptom 2-3 years ago 03/09/2011 None abdominal pain Limitation on Activities moderately limits activities 03/09/2011 None abdominal pain Significant Medical Conditions irritable bowel 03/09/2011 None abdominal pain Triggers meals 03/09/2011 None abdominal pain Pertinent Findings abdominal distension 03/09/2011 None abdominal pain Pertinent Findings bloating 03/09/2011 None abdominal pain Pertinent Findings dyspepsia 03/09/2011 None gastroesophageal reflux Quality chronic 01/12/2011 None gastroesophageal reflux Quality heartburn 01/12/2011 None gastroesophageal reflux Onset and Resolution ongoing 01/12/2011 None gastroesophageal reflux Onset of Symptom 2 years ago 01/12/2011 None gastroesophageal reflux Severity mild 01/12/2011 None gastroesophageal reflux Frequency of Episodes weekly 01/12/2011 None gastroesophageal reflux Diet includes caffeine 01/12/2011 None gastroesophageal reflux Diet includes mint 01/12/2011 None gastroesophageal reflux Significant Medications antacid 01/12/2011 None gastroesophageal reflux Triggers stress 01/12/2011 None gastroesophageal reflux Alleviating Factors proton pump inhibitor 01/12/2011 None Advance Directives No Advance Directive data Encounters Encounter Performer Location Codes Date ([id number]) 87659 EST. PATIENT, LEVEL III Diagnosis: Irritable bowel syndrome with constipation[ICD10: K58.1] Diagnosis: Other allergic rhinitis[ICD10: J30.89] Gin Riggs MD, [facility] CPT-4: 06661 10/25/2018 41175 EST. PATIENT, LEVEL III Diagnosis: Slow transit constipation[ICD10: K59.01] Diagnosis: Right lower quadrant pain[ICD10: R10.31] Cherry Riggs MD, [facility] CPT-4: 10179 10/06/2018 ([id number]) 56634 EST. PATIENT, LEVEL III Diagnosis: Candidiasis of skin and nail[ICD10: B37.2] Gin Riggs MD, [facility] CPT-4: 03822 08/08/2018 ([id number]) 73633 EST. 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 PATIENT, LEVEL III Diagnosis: Dysuria[ICD10: R30.0] Cherry Riggs MD, [facility] CPT-4: 88044 02/16/2018 ([id number]) 20783 EST. PATIENT, LEVEL III Diagnosis: Pain in left knee[ICD10: M25.562] Gin Riggs MD, [facility] CPT- 4: 38160 12/20/2017 ([id number]) PREV VISIT EST AGE 40-64 Diagnosis: Encounter for general adult medical examination without abnormal findings[ICD10: Z00.00] Diagnosis: Dysuria[ICD10: R30.0] Diagnosis: Other allergic rhinitis[ICD10: J30.89] Gin Riggs MD, [facility] CPT-4: 21448 11/26/2017 64094 EST. PATIENT, LEVEL IV Diagnosis: Other acute sinusitis[ICD10: J01.80] Diagnosis: Other allergic rhinitis[ICD10: J30.89] Cherry Riggs MD, [facility] CPT- 4: 37226 07/21/2017 25058 EST. PATIENT, LEVEL IV Diagnosis: Allergic contact dermatitis due to plants, except food[ICD10: L23.7] Cherry Riggs MD, [facility] CPT-4: 67325 04/05/2017 ([id number]) 14254 EST. PATIENT, LEVEL III Diagnosis: Acute recurrent maxillary sinusitis[ICD10: J01.01] Gin Riggs MD, [facility] CPT-4: 15816 03/22/2017 64839 EST. PATIENT, LEVEL IV Diagnosis: Other acute sinusitis[ICD10: J01.80] Diagnosis: Other allergic rhinitis[ICD10: J30.89] Cherry Riggs MD, [facility] CPT- 4: 95747 02/24/2017 ([id number]) 60651 EST. PATIENT, LEVEL III Diagnosis: Acute laryngopharyngitis[ICD10: J06.0] Gin Riggs MD, [facility] CPT-4: 69737 08/20/2016 67027 EST. PATIENT, LEVEL III Diagnosis: Pain in right shoulder[ICD10: M25.511] Cherry Riggs MD, [facility] CPT- 4: 17391 06/10/2016 ([id number]) 71538 EST. PATIENT, LEVEL II Diagnosis: Melanocytic nevi, unspecified[ICD10: D22.9] Gin Riggs MD, [facility] CPT-4: 83203 02/07/2016 65575 EST. PATIENT, LEVEL III Diagnosis: Other acute sinusitis[ICD10: J01.80] Diagnosis: Other allergic rhinitis[ICD10: J30.89] Cherry Riggs MD, [facility] CPT- 4: 72583 01/08/2016 ([id number]) 74083 EST. PATIENT, LEVEL III Diagnosis: Acute recurrent maxillary sinusitis[ICD10: J01.01] Gin Riggs MD, [facility] CPT-4: 73210 07/30/2015 ([id number]) PREV VISIT EST AGE 18-39 Diagnosis: Encounter for general adult medical examination without abnormal findings[ICD10: Z00.00] Diagnosis: Allergic rhinitis, unspecified[ICD10: J30.9] Gin Riggs MD, [facility] CPT-4: 36540 03/22/2015 ([id number]) 40462 EST. PATIENT, LEVEL III Diagnosis: Influenza[ICD9: 487.1] Gin Riggs MD, [facility] CPT-4: 46196 06/20/2012 08854 EST. PATIENT, LEVEL II Diagnosis: DYSURIA[ICD9: 788.1] Diagnosis: Screen for sexually transmitted diseases[ICD9: V74.5] Gin Riggs MD, [facility] CPT-4: 01699 03/18/2012 ([id number]) 23674 EST. PATIENT, LEVEL III Diagnosis: ACUTE SINUSITIS[ICD9: 461.9] Gin Riggs MD, [facility] CPT-4: 11984 06/30/2011 [id number] EST. PATIENT, LEVEL IV Diagnosis: ESOPHAGEAL REFLUX[ICD9: 530.81] Diagnosis: Constipation[ICD9: 564.00] Claire Riggs MD, [facility] CPT-4: 08496 03/09/2011 OFFICE VISIT, NEW - LEVEL 3 Diagnosis: Encounter for annual health examination[ICD9: V70.0] Diagnosis: Esophageal reflux[ICD9: 530.81] Claire Riggs MD, [facility] CPT-4: 57413 01/12/2011 Plan of Care Planned Activity Notes Codes Status Date Visit Plan: Constipation -improved -continue current treatment Allergies - chronic - recommended pt to use allergy medication as prescribed. Pt has been counseled as to the appropriate use of the medication. Pt to call if allergy symptoms are not controlled with the medication. If using nasal spray, instructions as follows: Nasal spray- use twice daily, one spray per nostril twice daily, after 30 minutes, rinse out nose with saline spray.. Use opposite hand per nostril to spray in the nasal steroid allergy spray. 10/25/2018 Appointment: Gin Dooley WPtel: [phone] (15 min) Moderate 10/25/2018 Patient Education: Patient Medication Summary Completed 10/25/2018 Care Plan: Comp Metabolic Pending 10/25/2018 Care Plan: Cbc With Differential Pending 10/25/2018 Care Plan: Tsh Pending 10/25/2018 Care Plan: Lipid Pending 10/25/2018 Visit Plan: RLQ pain, Constipation - uncontrolled - I have discussed with the patient the need for adequate fiber and water intake to facilitate soft, easily passed stools. The pt noted understanding of our conversation. I have given the patient a recipe for "power pudding" - equal parts, bran flakes, prune juice, and apple sauce. The pt is to call if symptoms not improved on this regimen. 10/06/2018 Appointment: Cherry Wagoner WPtel: [facility] (30 min) Complex 10/06/2018 Patient Education: Patient Medication Summary Completed 10/06/2018 Visit Plan: Yeast infection -patient's was positive for yeast infection -will treat patient with diflucan -instructed him to call if symptoms do not resolve and we will re-evaluate or send to urologist for cheryl luation -patient verbalized understanding of plan. 08/08/2018 Appointment: Gin Dooley WPtel: [phone] (30 min) Complex 08/08/2018 Patient Education: Patient Medication Summary Completed 08/08/2018 Visit Plan: Dysuria -irritation -UA negative-recommend patient switch to unscented soap/lotion -monitor symptoms and call if they do no resolve Varicocele -check semen analysis 06/28/2018 Appointment: Gin Dooley WPtel: [phone] [place] (30 min) Complex 06/28/2018 Patient Education: Patient Medication Summary Completed 06/28/2018 Patient Education: Patient Medication Summary Completed 03/15/2018 Visit Plan: Varicocele-grade 3 -discussed with Dr Riggs - start an aspirin daily - discussed anti inflammatories, supportive underwear and to call if symptoms do not resolve or if any worse. Patient verbalized understanding of plan. 02/22/2018 Appointment: Gin Dooley WPtel: [phone] (15 min) Moderate 02/22/2018 Patient Education: Patient Medication Summary Completed 02/22/2018 Visit Plan: Dysuria - ongoing - no other symptoms - will culture urine and treat as indicated - pt is to update clinic of his symptoms in 10 days. Pt is to notify clinic with any acute changes, questions, or concerns. If no improvement will refer to urology 02/16/2018 Visit Plan: Dysuria - ongoing - no other symptoms - will culture urine and treat as indicated - pt is to update clinic of his symptoms in 10 days. Pt is to notify clinic with any acute changes, questions, or concerns. If no improvement will refer to urology 02/16/2018 Appointment: Cherry Wagoner WPtel: [facility] (15 min) Moderate 02/16/2018 Patient Education: Patient Medication Summary Completed 02/16/2018 Patient Education: Patient Medication Summary Completed 01/03/2018 Visit Plan: Left knee pain -suspect meniscal injury -will xray knee today and then schedule MRI for further evaluation -discussed rest, ice and anti inflammatories as directed 12/20/2017 Appointment: Gin Dooley WPtel: [phone] [place] (15 min) Moderate 12/20/2017 Patient Education: Patient Medication Summary Completed 12/20/2017 Care Plan: X-RAY EXAM OF KNEE 3 LOINC : 40997-0 Pending 12/20/2017 Visit Plan: Well Adult - pt was counseled about diet, exercise, and encouraged to follow a heart healthy diet and increase activity level. The patient was instructed to RTC yearly for well adult exams and PRN for acute illnesses. The pt was also instructed to have yearly labs for check of cholesterol, thyroid, chem panel, CBC, and renal functioning. Allergies - chronic - recommended pt to use allergy medication as prescribed. Pt has been counseled as to the appropriate use of the medication. Pt to call if allergy symptoms are not controlled with the medication. If using nasal spray, instructions as follows: Nasal spray- use twice daily, one spray per nostril twice daily, after 30 minutes, rinse out nose with saline spray.. Use opposite hand per nostril to spray in the nasal steroid allergy spray. UTI - pt with positive urinalysis - culture sent if appropriate. Antibiotic electronically prescribed to pt's pharmacy of choice. Pt to call if symptoms do not improve. 11/26/2017 Appointment: Gin Dooley WPtel: [address] [phone] (15 min) Moderate 11/26/2017 Patient Education: Patient Medication Summary Completed 11/26/2017 Visit Plan: Sinusitis - Pt has acute infection - pain in face, maxillary region, Pt informed to use decongestant, RX given to patient, sinus rinses also recommended. Call if symptoms do not show improvement. Allergies - chronic - recommended pt to use allergy medication as prescribed. Pt has been counseled as to the appropriate use of the medication. Pt to call if allergy symptoms are not controlled with the medication. If using nasal spray, instructions as follows: Nasal spray- use twice daily, one spray per nostril twice daily, after 30 minutes, rinse out nose with saline spray.. Use opposite hand per nostril to spray in the nasal steroid allergy spray. 07/21/2017 Appointment: Cherry Wagoner WPtel: [phone] (15 min) Moderate 07/21/2017 Patient Education: Patient Medication Summary Completed 07/21/2017 Visit Plan: Poison Ruthy - pt is to use topical treatments as directed. Pt is cleanse clothing in hot water with soap, and call if symptoms do not improve or if they worsen. 04/05/2017 Appointment: Cherry Wagoner WPtel: [address] [phone] (10 min) Simple 04/05/2017 Patient Education: Patient Medication Summary Completed 04/05/2017 Visit Plan: Sinusitis - Pt has acute infection - pain in face, maxillary region, Pt informed to use decongestant, RX given to patient, sinus rinses also recommended. Call if symptoms do not show improvement. Allergies - chronic - recommended pt to use allergy medication as prescribed. Pt has been counseled as to the appropriate use of the medication. Pt to call if allergy symptoms are not controlled with the medication. If using nasal spray, instructions as follows: Nasal spray- use twice daily, one spray per nostril twice daily, after 30 minutes, rinse out nose with saline spray.. Use opposite hand per nostril to spray in the nasal steroid allergy spray. 03/22/2017 Appointment: Gin Dooley WPtel: [phone] [phone] (15 min) Moderate 03/22/2017 Patient Education: Patient Medication Summary Completed 03/22/2017 Visit Plan: Sinusitis - Pt has acute infection - pain in face, maxillary region, Pt informed to use decongestant, RX given to patient, sinus rinses also recommended. Call if symptoms do not show improvement. Allergies - chronic - recommended pt to use allergy medication as prescribed. Pt has been counseled as to the appropriate use of the medication. Pt to call if allergy symptoms are not controlled with the medication. If using nasal spray, instructions as follows: Nasal spray- use twice daily, one spray per nostril twice daily, after 30 minutes, rinse out nose with saline spray.. Use opposite hand per nostril to spray in the nasal steroid allergy spray. 02/24/2017 Appointment: Cherry Wagoner WPtel: [phone] [facility] [place] (15 min) Moderate 02/24/2017 Patient Education: Patient Medication Summary Completed 02/24/2017 Appointment: Joel 09/16/2016 Patient Education: Patient Medication Summary Completed 09/16/2016 Visit Plan: Pharyngitis-Discussed natural and expected course of this diagnosis and need to alert me if symtpoms do not follow expected course, or if any worse. Recommended salt water gargles as needed for pain. Ty lenol/motrin as needed for fever/discomfort. 08/20/2016 Visit Plan: Pharyngitis-Discussed natural and expected course of this diagnosis and need to alert me if symtpoms do not follow expected course, or if any worse. Recommended salt water gargles as needed for pain. Ty lenol/motrin as needed for fever/discomfort. 08/20/2016 Appointment: Gin Dooley WPtel: [phone] [phone] (10 min) Simple 08/20/2016 Patient Education: Patient Medication Summary Completed 08/20/2016 Visit Plan: Right shoulder pain - ongoing - Will order MRI - The pt is to use prn antiinflammatories to manage acute pain. The patient is to call the office if the pain is worsening or does not improve. 06/10/2016 Patient Education: Patient Medication Summary Completed 06/10/2016 Visit Plan: Abnormal mole-right ankle-patients concerned- refer to Dr Greene for evaluation 02/07/2016 Appointment: Gin Dooley WPtel: [phone] [phone] (30 min) Complex 02/07/2016 Patient Education: Patient Medication Summary Completed 02/07/2016 Care Plan: Referral Order SNOMED-CT : [id number] Pending 02/07/2016 Visit Plan: Sinusitis - Pt has acute infection - pain in face, maxillary region, Pt informed to use decongestant, RX given to patient, sinus rinses also recommended. Call if symptoms do not show improvement. Allergies - chronic - recommended pt to use allergy medication as prescribed. Pt has been counseled as to the appropriate use of the medication. Pt to call if allergy symptoms are not controlled with the medication. If using nasal spray, instructions as follows: Nasal spray- use twice daily, one spray per nostril twice daily, after 30 minutes, rinse out nose with saline spray.. Use opposite hand per nostril to spray in the nasal steroid allergy spray. 01/08/2016 Patient Education: Patient Medication Summary Completed 01/08/2016 Visit Plan: Sinusitis - Pt has acute infection - pain in face, maxillary region, Pt informed to use decongestant, RX given to patient, sinus rinses also recommended. Call if symptoms do not show improvement. 07/30/2015 Appointment: (15 min) Moderate 07/30/2015 Patient Education: Patient Medication Summary Completed 07/30/2015 Visit Plan: Well Adult - pt was counseled about diet, exercise, and encouraged to follow a heart healthy diet and increase activity level. The patient was instructed to RTC yearly for well adult exams and PRN for acute illnesses. The pt was also instructed to have yearly labs for check of cholesterol, thyroid, chem panel, CBC, and renal functioning. Allergies - chronic - recommended pt to use allergy medication as prescribed. Pt has been counseled as to the appropriate use of the medication. Pt to call if allergy symptoms are not controlled with the medication. If using nasal spray, instructions as follows: Nasal spray- use twice daily, one spray per nostril twice daily, after 30 minutes, rinse out nose with saline spray.. Use opposite hand per nostril to spray in the nasal steroid allergy spray. Kenalog injection today in the office 03/22/2015 Appointment: Gin Dooley WPtel: [phone] [facility] 03/22/2015 Patient Education: Patient Medication Summary Completed 03/22/2015 Visit Plan: Fever-URI symptoms-body aches-patient is symptomatic for influenza-he is within the treatment range since he had a sudden onset of symptoms this morning-RX for tamiflu sent to patient's pharmacy.- Pt advised to increase fluids, vitamin C. Discussed natural and expected course of this diagnosis and need to alert me if symtpoms do not follow expected course, or if any worse. 06/20/2012 Appointment: Gin Dooley WPtel: [phone] [facility] 06/20/2012 Patient Education: Patient Medication Summary Completed 06/20/2012 Visit Plan: Dysuria-UA negative-gc and chlamydia probe today in the office-Emperic treatment for both STI's today as well-discussed natural and expected course of this diagnosis and to alert me if symptoms do not follow expected course, or if any worse. RX sent to patient's pharmacy and rocephin injection today in the office. We will call patient with results of testing. 03/18/2012 Appointment: Gin Dooley WPtel: [address] [place] [address] Other 03/18/2012 Patient Education: Patient Medication Summary Completed 03/18/2012 Appointment: Claire Riggs WPtel: [facility] [address] Lab Draw 03/17/2012 Patient Education: Patient Medication Summary Completed 03/17/2012 Visit Plan: Sinusitis - Pt has acute infection - pain in face, maxillary region, Pt informed to use decongestant, RX given to patient, sinus rinses also recommended. Call if symptoms do not show improvement. Cough- rocephin and kenalog injection today in the office-rx for zpack to patient's pharmacy-call if symptoms do not resolve. 06/30/2011 Appointment: Gin Dooley WPtel: [address] [place] [address] Other 06/30/2011 Patient Education: Patient Medication Summary Completed 06/30/2011 Visit Plan: ESOPHAGEAL REFLUX- recommend pt to take the omeprazole daily as directed and avoid spicy food, caffiene, peppermint, and acidic foods. Fatty foods may also worsen reflux. Chronic constipation alternating with diarrhea is common to see with Irritable bowel syndrome.. Usethe power pudding recipe to keep the stools soft. Appt with Dr. Bartholomew is for March 25 at 3:30pm. 03/09/2011 Appointment: Claire Riggs WPtel: [facility] Other 03/09/2011 Patient Education: Patient Medication Summary Completed 03/09/2011 Patient Education: .Amazing charts Power Pudding Completed 03/09/2011 Visit Plan: Well Adult - pt was counseled about diet, exercise, and encouraged to follow a heart healthy diet and increase acrtivity level. The patient was instructed to RTC yearly for well adult exams and PRN for acute illnesses. The pt was also instructed to have yearly labs for check of cholesterol, thyroid, chem panel, CBC, and renal functioning. Esophageal Reflux - the patient has been counseled against excessive intake of caffiene, spicy foods, peppermint, and cinnamon - all of which can exacerbate esophageal reflux. The patient is to take medications as prescribed and call the office if the symptoms are not improving. We discussed the need for the patient to follow a low fat diet and to start an exercise program. 01/12/2011 Appointment: Claire Riggs WPtel: [phone] New Patient 01/12/2011 Patient Education: Patient Medication Summary Completed 01/12/2011 Referral: Maranda Greene WPtel: Referral Appointment Requested Instructions Comment . Dysuria-UA negative-gc and chlamydia probe today in the office- Emperic treatment for both STI's today as well-discussed natural and expected course of this diagnosis and to alert me if symptoms do not follow expected course, or if any worse. RX sent to patient's pharmacy and rocephin injection today in the office. We will call patient with results of testing. . Yeast infection -patient's was positive for yeast infection -will treat patient with diflucan -instructed him to call if symptoms do not resolve and we will re-evaluate or send to urologist for evaluation -patient verbalized understanding of plan. . Poison Ruthy - pt is to use topical treatments as directed. Pt is cleanse clothing in hot water with soap, and call if symptoms do not improve or if they worsen. SWITCH TO XYZAL INSTEAD OF THE ZYRTEC FLONASE -INCREASE TO TWICE DAILY CHECK LABS TODAY . Constipation -improved -continue current treatment Allergies - chronic - recommended pt to use allergy medication as prescribed. Pt has been counseled as to the appropriate use of the medication. Pt to call if allergy symptoms are not controlled with the medication. If using nasal spray, instructions as follows: Nasal spray- use twice daily, one spray per nostril twice daily, after 30 minutes, rinse out nose with saline spray.. Use opposite hand per nostril to spray in the nasal steroid allergy spray. . Fever-URI symptoms-body aches-patient is symptomatic for influenza- he is within the treatment range since he had a sudden onset of symptoms this morning-RX for tamiflu sent to patient's pharmacy.- Pt advised to increase fluids, vitamin C. Discussed natural and expected course of this diagnosis and need to alert me if symtpoms do not follow expected course, or if any worse. . Sinusitis - Pt has acute infection - pain in face, maxillary region, Pt informed to use decongestant, RX given to patient, sinus rinses also recommended. Call if symptoms do not show improvement. Cough-rocephin and kenalog injection today in the office-rx for zpack to patient's pharmacy-call if symptoms do not resolve. Zyrtec D Continue flonase Call if your symptoms do not resolve or if any worse . Well Adult - pt was counseled about diet, exercise, and encouraged to follow a heart healthy diet and increase activity level. The patient was instructed to RTC yearly for well adult exams and PRN for acute illnesses. The pt was also instructed to have yearly labs for check of cholesterol, thyroid, chem panel, CBC, and renal functioning. Allergies - chronic - recommended pt to use allergy medication as prescribed. Pt has been counseled as to the appropriate use of the medication. Pt to call if allergy symptoms are not controlled with the medication. If using nasal spray, instructions as follows: Nasal spray- use twice daily, one spray per nostril twice daily, after 30 minutes, rinse out nose with saline spray.. Use opposite hand per nostril to spray in the nasal steroid allergy spray. Kenalog injection today in the office SWITCH TO UNSCENTED SOAP-LOTION SEMEN ANALYSIS . Dysuria -irritation -UA negative-recommend patient switch to unscented soap/lotion -monitor symptoms and call if they do no resolve Varicocele -check semen analysis COME WEDNESDAY FOR LABS CHECK UA XYZAL FOR ALLERGIES . Well Adult - pt was counseled about diet, exercise, and encouraged to follow a heart healthy diet and increase activity level. The patient was instructed to RTC yearly for well adult exams and PRN for acute illnesses. The pt was also instructed to have yearly labs for check of cholesterol, thyroid, chem panel, CBC, and renal functioning. Allergies - chronic - recommended pt to use allergy medication as prescribed. Pt has been counseled as to the appropriate use of the medication. Pt to call if allergy symptoms are not controlled with the medication. If using nasal spray, instructions as follows: Nasal spray- use twice daily, one spray per nostril twice daily, after 30 minutes, rinse out nose with saline spray.. Use opposite hand per nostril to spray in the nasal steroid allergy spray. UTI - pt with positive urinalysis - culture sent if appropriate. Antibiotic electronically prescribed to pt's pharmacy of choice. Pt to call if symptoms do not improve. . ESOPHAGEAL REFLUX- recommend pt to take the omeprazole daily as directed and avoid spicy food, caffiene, peppermint, and acidic foods. Fatty foods may also worsen reflux. Chronic constipation alternating with diarrhea is common to see with Irritable bowel syndrome.. Usethe power pudding recipe to keep the stools soft. Appt with Dr. Bartholomew is for March 25 at 3:30pm. . Abnormal mole-right ankle-patients concerned-refer to Dr Greene for evaluation . Sinusitis - Pt has acute infection - pain in face, maxillary region, Pt informed to use decongestant, RX given to patient, sinus rinses also recommended. Call if symptoms do not show improvement. Allergies - chronic - recommended pt to use allergy medication as prescribed. Pt has been counseled as to the appropriate use of the medication. Pt to call if allergy symptoms are not controlled with the medication. If using nasal spray, instructions as follows: Nasal spray- use twice daily, one spray per nostril twice daily, after 30 minutes, rinse out nose with saline spray.. Use opposite hand per nostril to spray in the nasal steroid allergy spray. . Sinusitis - Pt has acute infection - pain in face, maxillary region, Pt informed to use decongestant, RX given to patient, sinus rinses also recommended. Call if symptoms do not show improvement. Allergies - chronic - recommended pt to use allergy medication as prescribed. Pt has been counseled as to the appropriate use of the medication. Pt to call if allergy symptoms are not controlled with the medication. If using nasal spray, instructions as follows: Nasal spray- use twice daily, one spray per nostril twice daily, after 30 minutes, rinse out nose with saline spray.. Use opposite hand per nostril to spray in the nasal steroid allergy spray. . RLQ pain, Constipation - uncontrolled - I have discussed with the patient the need for adequate fiber and water intake to facilitate soft, easily passed stools. The pt noted understanding of our conversation. I have given the patient a recipe for "power pudding" - equal parts, bran flakes, prune juice, and apple sauce. The pt is to call if symptoms not improved on this regimen. xray left knee aleve 2 pills twice daily (take with food) ice rest ortho 4 states if needs referral . Left knee pain -suspect meniscal injury -will xray knee today and then schedule MRI for further evaluation -discussed rest, ice and anti inflammatories as directed . Sinusitis - Pt has acute infection - pain in face, maxillary region, Pt informed to use decongestant, RX given to patient, sinus rinses also recommended. Call if symptoms do not show improvement. Allergies - chronic - recommended pt to use allergy medication as prescribed. Pt has been counseled as to the appropriate use of the medication. Pt to call if allergy symptoms are not controlled with the medication. If using nasal spray, instructions as follows: Nasal spray- use twice daily, one spray per nostril twice daily, after 30 minutes, rinse out nose with saline spray.. Use opposite hand per nostril to spray in the nasal steroid allergy spray. . Varicocele-grade 3 -discussed with Dr Riggs -start an aspirin daily - discussed anti inflammatories, supportive underwear and to call if symptoms do not resolve or if any worse. Patient verbalized understanding of plan. . Pharyngitis-Discussed natural and expected course of this diagnosis and need to alert me if symtpoms do not follow expected course, or if any worse. Recommended salt water gargles as needed for pain. Tylenol/motrin as needed for fever/discomfort. . Pharyngitis-Discussed natural and expected course of this diagnosis and need to alert me if symtpoms do not follow expected course, or if any worse. Recommended salt water gargles as needed for pain. Tylenol/motrin as needed for fever/discomfort. Continue Zyrtec D Add flonase 1 spray each nare twice daily Augmentin twice daily Call if sinus infection does not resolve and we can send in a prescription for an antibiotic nasal spray compound that [facility] makes . Sinusitis - Pt has acute infection - pain in face, maxillary region, Pt informed to use decongestant, RX given to patient, sinus rinses also recommended. Call if symptoms do not show improvement. Allergies - chronic - recommended pt to use allergy medication as prescribed. Pt has been counseled as to the appropriate use of the medication. Pt to call if allergy symptoms are not controlled with the medication. If using nasal spray, instructions as follows: Nasal spray- use twice daily, one spray per nostril twice daily, after 30 minutes, rinse out nose with saline spray.. Use opposite hand per nostril to spray in the nasal steroid allergy spray. . Sinusitis - Pt has acute infection - pain in face, maxillary region, Pt informed to use decongestant, RX given to patient, sinus rinses also recommended. Call if symptoms do not show improvement. aleve twice a day for the next 3 days . Right shoulder pain - ongoing - Will order MRI - The pt is to use prn antiinflammatories to manage acute pain. The patient is to call the office if the pain is worsening or does not improve. . Dysuria - ongoing - no other symptoms - will culture urine and treat as indicated - pt is to update clinic of his symptoms in 10 days. Pt is to notify clinic with any acute changes, questions, or concerns. If no improvement will refer to urology . Dysuria - ongoing - no other symptoms - will culture urine and treat as indicated - pt is to update clinic of his symptoms in 10 days. Pt is to notify clinic with any acute changes, questions, or concerns. If no improvement will refer to urology bring labs by the office take the omeprazole wednesday, wednesday, wednesday . Well Adult - pt was counseled about diet, exercise, and encouraged to follow a heart healthy diet and increase acrtivity level. The patient was instructed to RTC yearly for well adult exams and PRN for acute illnesses. The pt was also instructed to have yearly labs for check of cholesterol, thyroid, chem panel, CBC, and renal functioning. Esophageal Reflux - the patient has been counseled against excessive intake of caffiene, spicy foods, peppermint, and cinnamon - all of which can exacerbate esophageal reflux. The patient is to take medications as prescribed and call the office if the symptoms are not improving. We discussed the need for the patient to follow a low fat diet and to start an exercise program.
--- OUTSIDE RECORDS SUMMARY | 2018-11-22 06:56 | XMS REPORT | CCD ---
Author Author [facility] Organization [facility] Address [address] [place] [address] Phone Care Team Providers Care Machine Sewer Name Role Phone Claire Riggs PP Unavailable CCM Unavailable Summary Purpose Interface Exchange Insurance Providers Payer name Policy type / Coverage type Covered alliance party ID Effective Begin Date Effective End Date 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 Unknown Has never used illegal drugs 01/12/2011 Allergies, Adverse Reactions, Alerts Substance Reaction Codes Entered Date Inactivated Date Status * NO KNOWN FOOD ALLERGIES Unknown 01/12/2011 No Inactive Date Active bactrim RxNorm: 579746 03/22/2015 No Inactive Date Active Past Medical [...] Instructions Flonase 50 mcg/actuation nasal spray,suspension RxNorm: 8268119 1 [place] NASAL BID 10/26/2018 No Stop Date Active Lipitor 10 mg tablet RxNorm: 308644 1 Tablet(s) PO daily 10/26/2018 02/22/2019 Active Lipitor 10 mg tablet RxNorm: 294264 1 Tablet(s) PO daily 10/26/2018 10/25/2018 Inactive Yuridia-D 12 Hour 60 mg-120 mg tablet,extended release RxNorm: 506893 1 Tablet(s) PO BID 09/07/2018 No Stop Date Active fluconazole 150 mg tablet RxNorm: 544331 1 Tablet(s) PO daily 08/08/2018 08/14/2018 Inactive omeprazole 20 mg capsule,delayed release RxNorm: 999037 1 Capsule(s) PO daily 06/28/2018 10/25/2018 Inactive Zyrtec-D 5 mg-120 mg tablet,extended release RxNorm: 3482717 1 Tablet(s) PO BID as needed 06/22/2018 No Stop Date Active Flonase 50 mcg/actuation nasal spray,suspension RxNorm: 8718699 1 [place] NASAL BID 06/22/2018 10/25/2018 Inactive Augmentin 875 mg-125 mg tablet RxNorm: 276456 1 Tablet(s) PO BID 06/02/2018 06/08/2018 Inactive Zithromax Z-Surya 250 mg tablet RxNorm: 653360 1 Tablet(s) PO UD 03/24/2018 06/01/2018 Inactive Flonase 50 mcg/actuation nasal spray,suspension RxNorm: 0489566 1 [place] NASAL BID 03/01/2018 06/21/2018 Inactive Cipro 500 mg tablet RxNorm: 330420 1 Tablet(s) PO BID 02/16/2018 02/25/2018 Inactive Diflucan 150 mg tablet RxNorm: 824061 1 Tablet(s) PO daily start after cipro is finished 02/16/2018 02/22/2018 Inactive Augmentin 875 mg-125 mg tablet RxNorm: 489461 1 Tablet(s) PO BID 12/24/2017 12/23/2017 Inactive Augmentin 875 mg-125 mg tablet RxNorm: 237756 1 Tablet(s) PO BID 12/24/2017 12/30/2017 Inactive Keflex 500 mg capsule RxNorm: 087019 1 Capsule(s) PO TID 12/08/2017 12/14/2017 Inactive Yuridia-D 12 Hour 60 mg-120 mg tablet,extended release RxNorm: 184064 1 Tablet(s) PO BID 12/06/2017 09/06/2018 Inactive Keflex 500 mg capsule RxNorm: 156889 1 Capsule(s) PO TID 11/26/2017 12/02/2017 Inactive Flonase 50 mcg/actuation nasal spray,suspension RxNorm: 7172647 1 [place] NASAL BID 11/15/2017 02/28/2018 Inactive Yuridia Allergy 180 mg tablet RxNorm: 067692 1 Tablet(s) PO daily 10/27/2017 10/27/2017 Inactive Zyrtec-D 5 mg-120 mg tablet,extended release RxNorm: 9084681 1 Tablet(s) PO BID as needed 10/20/2017 06/21/2018 Inactive Yuridia Allergy 180 mg tablet RxNorm: 241921 1 Tablet(s) PO daily 09/21/2017 10/20/2017 Inactive Augmentin 500 mg-125 mg tablet RxNorm: 730616 1 Tablet(s) PO TID 07/21/2017 07/30/2017 Inactive Yuridia Allergy 180 mg tablet RxNorm: 721614 1 Tablet(s) PO daily 07/21/2017 08/19/2017 Inactive Zyrtec-D 5 mg-120 mg tablet,extended release RxNorm: 9437816 1 Tablet(s) PO BID as needed 06/15/2017 10/19/2017 Inactive Zyrtec-D 5 mg-120 mg tablet,extended release RxNorm: 3797451 1 Tablet(s) PO BID as needed 05/11/2017 02/21/2018 Inactive prednisone 10 mg tablet RxNorm: 470739 Tablet(s) PO 04/05/2017 12/07/2017 Inactive 6,5,4,3,2,1 Kenalog 40 mg/mL suspension for injection RxNorm: 9115089 1 Milliliter(s) Inj 04/05/2017 04/05/2017 Inactive Flonase 50 mcg/actuation nasal spray,suspension RxNorm: 1416326 1 [place] NASAL BID 04/01/2017 11/14/2017 Inactive Augmentin 875 mg-125 mg tablet RxNorm: 209946 1 Tablet(s) PO BID 03/22/2017 03/28/2017 Inactive prednisone 20 mg tablet RxNorm: 828324 2 Tablet(s) PO daily 03/02/2017 03/06/2017 Inactive prednisone 20 mg tablet RxNorm: 564309 2 Tablet(s) PO daily 03/02/2017 03/01/2017 Inactive Zithromax Z-Surya 250 mg tablet RxNorm: 644860 1 Tablet(s) PO UD 02/24/2017 03/21/2017 Inactive Kenalog 40 mg/mL suspension for injection RxNorm: 8912625 1 Milliliter(s) Inj 02/24/2017 02/24/2017 Inactive Zyrtec-D 5 mg-120 mg tablet,extended release RxNorm: 8526722 1 Tablet(s) PO BID as needed 02/05/2017 05/10/2017 Inactive Zyrtec-D 5 mg-120 mg tablet,extended release RxNorm: 9897513 1 Tablet(s) PO BID as needed 12/01/2016 02/04/2017 Inactive Zyrtec-D 5 mg-120 mg tablet,extended release RxNorm: 3493139 1 Tablet(s) PO BID as needed 11/03/2016 11/30/2016 Inactive Zyrtec-D 5 mg-120 mg tablet,extended release RxNorm: 5352810 1 Tablet(s) PO BID as needed 10/09/2016 11/02/2016 Inactive Kenalog 40 mg/mL suspension for injection RxNorm: 7956051 1 Milliliter(s) Inj 09/16/2016 09/16/2016 Inactive Levaquin 500 mg tablet RxNorm: 277344 1 Tablet(s) PO daily 09/15/2016 09/24/2016 Inactive Levaquin 500 mg tablet RxNorm: 183692 1 Tablet(s) PO daily 09/15/2016 09/14/2016 Inactive prednisone 20 mg tablet RxNorm: 650242 1 Tablet(s) PO BID 09/15/2016 09/19/2016 Inactive amoxicillin 500 mg tablet RxNorm: 060112 1 Tablet(s) PO BID 08/20/2016 08/29/2016 Inactive Augmentin 875 mg-125 mg tablet RxNorm: 615816 1 Tablet(s) PO BID 04/23/2016 04/28/2016 Inactive Zyrtec-D 5 mg-120 mg tablet,extended release RxNorm: 5265099 1 Tablet(s) PO BID as needed 01/31/2016 10/08/2016 Inactive Flonase 50 mcg/actuation nasal spray,suspension RxNorm: 4814376 1 [place] NASAL BID 01/08/2016 01/22/2016 Inactive Flonase 50 mcg/actuation nasal spray,suspension RxNorm: 9519392 1 [place] NASAL BID 01/08/2016 01/07/2016 Inactive 1 spray each nare x 5 days Zithromax Z-Surya 250 mg tablet RxNorm: 798268 Tablet(s) PO 01/08/2016 01/30/2016 Inactive Zyrtec-D 5 mg-120 mg tablet,extended release RxNorm: 9505744 1 Tablet(s) PO BID as needed 01/08/2016 01/30/2016 Inactive Augmentin 875 mg-125 mg tablet RxNorm: 164473 1 Tablet(s) PO BID 10/08/2015 10/17/2015 Inactive Augmentin 875 mg-125 mg tablet RxNorm: 540907 1 Tablet(s) PO BID 10/08/2015 10/07/2015 Inactive prednisone 20 mg tablet RxNorm: 035639 1 Tablet(s) PO BID 08/01/2015 08/05/2015 Inactive prednisone 20 mg tablet RxNorm: 922002 1 Tablet(s) PO BID 08/01/2015 07/31/2015 Inactive Kenalog 40 mg/mL suspension for injection RxNorm: 8465416 Milliliter(s) Inj 07/30/2015 07/30/2015 Inactive Zyrtec-D 5 mg-120 mg tablet,extended release RxNorm: 0222656 1 Tablet(s) PO BID as needed 07/30/2015 01/07/2016 Inactive Augmentin 875 mg-125 mg tablet RxNorm: 549049 1 Tablet(s) PO BID 07/30/2015 08/05/2015 Inactive Kenalog 40 mg/mL suspension for injection RxNorm: 1616326 1 Milliliter(s) Inj 03/22/2015 03/22/2015 Inactive Flonase 50 mcg/actuation Nasal [place] RxNorm: 2403440 1 [place] NASAL 07/12/2012 07/11/2012 Inactive 1 spray each nare x 5 days Flonase 50 mcg/actuation Nasal [place] RxNorm: 0452825 1 [place] NASAL 07/12/2012 07/16/2012 Inactive 1 spray each nare x 5 days cefdinir 300 mg capsule RxNorm: 410319 1 Capsule(s) PO BID 07/12/2012 07/18/2012 Inactive cefdinir 300 mg capsule RxNorm: 412874 1 Capsule(s) PO BID 07/12/2012 07/11/2012 Inactive Tamiflu 75 mg capsule RxNorm: 700746 1 Capsule(s) PO BID 06/20/2012 06/24/2012 Inactive Tamiflu 75 mg capsule RxNorm: 564787 1 Capsule(s) PO BID 06/20/2012 06/19/2012 Inactive Diflucan 150 mg tablet RxNorm: 963347 1 Tablet(s) PO daily 04/21/2012 05/04/2012 Inactive nystatin 100,000 unit/g Topical Cream RxNorm: 615329 1 Application TOP TID 04/13/2012 05/02/2012 Inactive one application to groin tid Diflucan 150 mg tablet RxNorm: 583929 1 Tablet(s) PO daily 04/04/2012 04/06/2012 Inactive nystatin 100,000 unit/g Topical Cream RxNorm: 065509 1 Application TOP TID 04/04/2012 04/03/2012 Inactive one application to groin tid x 10 day nystatin 100,000 unit/g Topical Cream RxNorm: 578999 1 Application TOP TID 04/04/2012 04/12/2012 Inactive one application to groin tid x 10 day Diflucan 150 mg tablet RxNorm: 249438 1 Tablet(s) PO daily 03/23/2012 03/22/2012 Inactive Diflucan 150 mg tablet RxNorm: 062163 1 Tablet(s) PO daily 03/23/2012 03/29/2012 Inactive Rocephin 1 gram Solution for Injection RxNorm: 9102836 Inj 03/18/2012 03/18/2012 Inactive Augmentin 500 mg-125 mg tablet RxNorm: 982514 1 Tablet(s) PO TID 03/11/2012 03/10/2012 Inactive Augmentin 500 mg-125 mg tablet RxNorm: 568793 1 Tablet(s) PO TID 03/11/2012 03/17/2012 Inactive Kenalog 40 mg/mL Susp for Injection RxNorm: 6376132 1 Milliliter(s) Inj 07/02/2011 07/02/2011 Inactive Rocephin 500 mg Solution for Injection RxNorm: 5418024 1 Milliliter(s) Inj 07/02/2011 07/02/2011 Inactive Bactrim DS 800 mg-160 mg Tab RxNorm: 172700 1 Tablet(s) PO BID 06/30/2011 07/09/2011 Inactive multivitamin Oral RxNorm: Oral No Start Date Active omeprazole 40 mg Cap, Delayed Release RxNorm: 370519 1 Capsule(s) PO PRN No Start Date Active dicyclomine 20 mg tablet RxNorm: 257704 1 Tablet(s) PO TID No Start Date Active Yuridia-D 12 Hour 60 mg-120 mg tablet,extended release RxNorm: 813446 1 Tablet(s) PO BID No Start Date 12/05/2017 Inactive Zithromax 500 mg tablet RxNorm: 355167 2 Tablet(s) PO daily No Start Date 01/30/2016 Inactive Aspirin For Children 81 mg Chewable Tab RxNorm: 593139 1 Tablet(s) PO daily No Start Date 08/07/2018 Inactive Zyrtec-D 5 mg-120 mg 12 hr Tab RxNorm: 0564627 1 Tablet(s) PO daily No Start Date 07/29/2015 Inactive Medication Administered Medication Codes Instructions Start Date Status Kenalog 40 mg/mL suspension for injection RxNorm: 9526462 1Milliliter 04/05/2017 No longer Active Kenalog 40 mg/mL suspension for injection RxNorm: 2102168 1Milliliter 02/24/2017 No longer Active Kenalog 40 mg/mL suspension for injection RxNorm: 0608617 1Milliliter 09/16/2016 No longer Active Kenalog 40 mg/mL suspension for injection RxNorm: 5926922 Milliliter 07/30/2015 No longer Active Kenalog 40 mg/mL suspension for injection RxNorm: 9131093 1Milliliter 03/22/2015 No longer Active Rocephin 1 gram Solution for Injection RxNorm: 1996191 03/18/2012 No longer Active Rocephin 500 mg Solution for Injection RxNorm: 0765369 1Milliliter 07/02/2011 No longer Active Kenalog 40 mg/mL Susp for Injection RxNorm: 1662597 1Milliliter 07/02/2011 No longer Active Immunizations Vaccine [...] Item Item Code Result Date Comp Metabolic Lsk044 NA 139 mEq/L 03/15/2018 Comp Metabolic Jcz270 K 4.2 mEq/L 03/15/2018 Comp Metabolic Pqi155 CL 101 mEq/L 03/15/2018 Comp Metabolic Ybv262 CO2 32.0 mEq/L 03/15/2018 Comp Metabolic Ipe202 ANION GAP 10 03/15/2018 Comp Metabolic Jni752 GLUCOSE 94 mg/dL 03/15/2018 Comp Metabolic Kyu514 Creat 0.9 mg/dL 03/15/2018 Comp Metabolic Xuk848 eGFR 104 ml/min/1.73m2 03/15/2018 Comp Metabolic Wul756 BUN 14 mg/dL 03/15/2018 Comp Metabolic Kty002 B/C Ratio 16.3 Ratio 03/15/2018 Comp Metabolic Tjb458 CALCIUM 9.8 mg/dL 03/15/2018 Comp Metabolic Pig083 ALK PHOS 75 U/L 03/15/2018 Comp Metabolic Ldd328 AST(SGOT) 20 U/L 03/15/2018 Comp Metabolic Mam309 ALT(SGPT) 30 U/L 03/15/2018 Comp Metabolic Xwq054 BILI T 1.2 mg/dL 03/15/2018 Comp Metabolic Plx747 ALBUMIN 4.7 g/dL 03/15/2018 Comp Metabolic Eyw374 TPRO 7.2 g/dL 03/15/2018 Comp Metabolic Pha116 GLOB 2.5 g/dL 03/15/2018 Comp Metabolic Mrw868 A/G Ratio 1.9 Ratio 03/15/2018 Comp Metabolic Sdt207 Osmo 278 mOsmo 03/15/2018 Urine Culture Ucult [...] if culture needed 01/04/2018 Hepatitis Panel (Abc) 01041 HEPATITIS B SURFACE AG . 12/09/2017 Hepatitis Panel (Abc) 28722 HEPATITIS B SURFACE AG NEGATIVE 12/09/2017 Hepatitis Panel (Abc) 25632 HEPATITIS B CORE AB, IGM . 12/09/2017 Hepatitis Panel (Abc) 22038 HEPATITIS B CORE AB, IGM NEGATIVE 12/09/2017 Hepatitis Panel (Abc) 36671 HEPATITIS A AB, IGM . 12/09/2017 Hepatitis Panel (Abc) 17066 HEPATITIS A AB, IGM NEGATIVE 12/09/2017 Hepatitis Panel (Abc) 40173 HEPATITIS C ANTIBODY . 12/09/2017 Hepatitis Panel (Abc) 65094 HEPATITIS C ANTIBODY NEGATIVE 12/09/2017 Tsh Ord6 TSH (3rd IS) 2.24 uIU/mL 11/29/2017 Comp Metabolic Fxk467 NA 138 mEq/L 11/29/2017 Comp Metabolic Los686 K 4.1 mEq/L 11/29/2017 Comp Metabolic Gmy424 CL 101 mEq/L 11/29/2017 Comp Metabolic Pyp126 CO2 30.0 mEq/L 11/29/2017 Comp Metabolic Gbk293 ANION GAP 11 11/29/2017 Comp Metabolic Umq423 GLUCOSE 89 mg/dL 11/29/2017 Comp Metabolic Cjc008 Creat 0.8 mg/dL 11/29/2017 Comp Metabolic Oze197 eGFR 107 ml/min/1.73m2 11/29/2017 Comp Metabolic Eft457 BUN 15 mg/dL 11/29/2017 Comp Metabolic Jhy986 B/C Ratio 17.9 Ratio 11/29/2017 Comp Metabolic Vxd360 CALCIUM 9.4 mg/dL 11/29/2017 Comp Metabolic Cfl315 ALK PHOS 71 U/L 11/29/2017 Comp Metabolic Dvg420 AST(SGOT) 19 U/L 11/29/2017 Comp Metabolic Bep177 ALT(SGPT) 27 U/L 11/29/2017 Comp Metabolic Fue030 BILI T 1.8 mg/dL 11/29/2017 Comp Metabolic Dwn141 ALBUMIN 4.4 g/dL 11/29/2017 Comp Metabolic Olz767 TPRO 6.8 g/dL 11/29/2017 Comp Metabolic Bok944 GLOB 2.5 g/dL 11/29/2017 Comp Metabolic Hmv039 A/G Ratio 1.8 Ratio 11/29/2017 Comp Metabolic Nwq035 Osmo 276 mOsmo 11/29/2017 Urine Culture Ucult [...] 27.4 pg 11/29/2017 Cbc With Differential Ord2 [place]% 8.3 % 11/29/2017 Cbc With Differential Ord2 [...] 3.16 K/ul 11/29/2017 Cbc With Differential Ord2 [place] ABS# 0.7 K/ul 11/29/2017 Cbc With Differential Ord2 Eos ABS# 0.2 K/ul 11/29/2017 Cbc With Differential Ord2 Baso ABS# 0.0 K/ul 11/29/2017 C RAP A SC 4030328 Strep A Negative 08/20/2016 GC/CHL PRB 9520080 SOURCE CASSANDRA UNKNOWN 03/19/2012 GC/CHL PRB 2600457 CHLM PROBE NEG 03/19/2012 GC/CHL PRB 6256459 GC PROBE NEG 03/19/2012 URINALYSIS NONAUTO W/O SCOPE 40499 Specific [place] 1.010 DateTime(Free Text in Aprima) URINALYSIS NONAUTO W/O SCOPE 45584 PH 6.5 DateTime(Free Text in Aprima) URINALYSIS NONAUTO W/O SCOPE 81023 GLUCOSE neg DateTime(Free Text in Aprima) URINALYSIS NONAUTO W/O SCOPE 47069 Protein neg DateTime(Free Text in Aprima) URINALYSIS NONAUTO W/O SCOPE 33771 Blood neg DateTime(Free Text in Aprima) URINALYSIS NONAUTO W/O SCOPE 58331 Bilirubin neg DateTime(Free Text in Aprima) URINALYSIS NONAUTO W/O SCOPE 35997 Ketones neg DateTime(Free Text in Aprima) URINALYSIS NONAUTO W/O SCOPE 56406 Urobilinogen neg DateTime(Free Text in Aprima) URINALYSIS NONAUTO W/O SCOPE 34850 Nitrite neg DateTime(Free Text in ) URINALYSIS NONAUTO W/O SCOPE 96699 Leukocytes neg DateTime(Free Text in ) Review [...] Codes Date URINALYSIS NONAUTO W/O SCOPE CPT-4: 23859 06/28/2018 TRIAMCINOLONE ACET INJ NOS CPT-4: J3301 04/05/2017 TRIAMCINOLONE ACET INJ NOS CPT-4: J3301 02/24/2017 THER/PROPH/DIAG INJ SC/IM CPT-4: 52283 09/16/2016 TRIAMCINOLONE ACET INJ NOS CPT-4: J3301 09/16/2016 TRIAMCINOLONE ACET INJ NOS CPT-4: J3301 07/30/2015 TRIAMCINOLONE ACET INJ NOS CPT-4: J3301 03/22/2015 ROCEPHIN, PER 250 MG CPT- 4: J0696 03/18/2012 URINALYSIS NONAUTO W/O SCOPE CPT-4: 73109 03/17/2012 ROCEPHIN, PER 250 MG CPT- 4: J0696 06/30/2011 TRIAMCINOLONE ACET INJ NOS CPT-4: J3301 06/30/2011 Vital Signs Date Vital 10/25/2018 Blood Pressure 1: 118/74 Code: 8480-6 BMI: 23.4 Code: 75687-7 Heart Rate 1: 75 bpm Height: 6'2" SpO2: 98% Weight: 182 lbs 10/06/2018 Height: Weight: 08/08/2018 Blood Pressure 1: 122/80 Code: 8480-6 Heart Rate 1: 84 bpm Height: 6'2" SpO2: 98% 06/28/2018 Blood Pressure 1: 122/82 Code: 8480-6 BMI: 24.0 Code: 85050-5 Heart Rate 1: 91 bpm Height: 6'2" SpO2: 98% Weight: 187 lbs 02/22/2018 Blood Pressure 1: 110/80 Code: 8480-6 Heart Rate 1: 74 bpm Height: 6'2" SpO2: 98% Weight: 02/16/2018 Blood Pressure 1: 130/72 Code: 8480-6 BMI: 24.0 Code: 17167-3 Heart Rate 1: 82 bpm Height: 6'2" SpO2: 97% Weight: 187 lbs 12/20/2017 Blood Pressure 1: 128/88 Code: 8480-6 BMI: 23.1 Code: 95773-8 Heart Rate 1: 86 bpm Height: 6'2" SpO2: 98% Weight: 180 lbs 11/26/2017 Blood Pressure 1: 122/80 Code: 8480-6 BMI: 23.1 Code: 05474-3 Heart Rate 1: 56 bpm Height: 6'2" SpO2: 98% Weight: 180 lbs 07/21/2017 Blood Pressure 1: 120/78 Code: 8480-6 BMI: 21.8 Code: 81221-1 Heart Rate 1: 88 bpm Height: 6'2" SpO2: 97% Weight: 170 lbs 04/05/2017 Blood Pressure 1: 126/68 Code: 8480-6 BMI: 22.6 Code: 61783-6 Heart Rate 1: 80 bpm Height: 6'2" SpO2: 98% Weight: 176 lbs 03/22/2017 Blood Pressure 1: 120/72 Code: 8480-6 BMI: 22.5 Code: 33321-6 Heart Rate 1: 82 bpm Height: 6'2" SpO2: 98% Temperature: 36.8 (C) / 98.3 (F) Weight: 175 lbs 02/24/2017 Blood Pressure 1: 120/62 Code: 8480-6 BMI: 22.5 Code: 77439-2 Heart Rate 1: 84 bpm Height: 6'2" SpO2: 98% Weight: 175 lbs 08/20/2016 Blood Pressure 1: 126/78 Code: 8480-6 BMI: 24.1 Code: 60325-9 Heart Rate 1: 84 bpm Height: 6'2" SpO2: 98% Temperature: 37.1 (C) / 98.8 (F) Weight: 188 lbs 06/10/2016 Blood Pressure 1: 124/62 Code: 8480-6 BMI: 24.4 Code: 36566-6 Heart Rate 1: 85 bpm Height: 6'2" SpO2: 98% Weight: 190 lbs 02/07/2016 Blood Pressure 1: 128/72 Code: 8480-6 BMI: 23.6 Code: 73700-2 Heart Rate 1: 78 bpm Height: 6'2" SpO2: 96% Weight: 184 lbs 01/08/2016 Blood Pressure 1: 108/70 Code: 8480-6 BMI: 23.4 Code: 74537-6 Heart Rate 1: 84 bpm Height: 6'2" SpO2: 96% Weight: 182 lbs 07/30/2015 Blood Pressure 1: 110/64 Code: 8480-6 BMI: 22.6 Code: 71174-9 Heart Rate 1: 78 bpm Height: 6'2" SpO2: 98% Weight: 176 lbs 03/22/2015 Blood Pressure 1: 126/80 Code: 8480-6 BMI: 24.0 Code: 67013-9 Heart Rate 1: 76 bpm Height: 6'2" SpO2: 98% Weight: 187 lbs 06/20/2012 Blood Pressure 1: 110/76 Code: 8480-6 Heart Rate 1: 100 bpm Temperature: 38.7 (C) / 101.7 (F) Weight: 169 lbs 03/18/2012 Blood Pressure 1: 132/70 Code: 8480-6 Heart Rate 1: 80 bpm Weight: 160 lbs 06/30/2011 Blood Pressure 1: 110/72 Code: 8480-6 BMI: 23.9 Code: 83843-4 Heart Rate 1: 72 bpm Height: 6'2" Respiratory Rate: 20 bpm Weight: 186 lbs 03/09/2011 Blood Pressure 1: 96/58 Code: 8480-6 BMI: 23.2 Code: 36630- 5 Heart Rate 1: 80 bpm Height: 6'2" Respiratory Rate: 16 bpm Weight: 183 lbs 01/12/2011 Blood Pressure 1: 126/80 Code: 8480-6 BMI: 23.5 Code: 64796-8 Heart Rate 1: 82 bpm Height: 6'2" [...] 04/05/2017 None rash Location-Head/Neck on the left restorationist 04/05/2017 None rash Location-Head/Neck on the forehead [...] data Encounters Encounter Performer Location Codes Date ([id number]) [id number] EST. PATIENT, LEVEL III Diagnosis: Irritable bowel syndrome with constipation[ICD10: K58.1] Diagnosis: Other allergic rhinitis[ICD10: J30.89] Gin Riggs MD, [facility] CPT-4: 93068 10/25/2018 [id number] EST. PATIENT, LEVEL III Diagnosis: Slow transit constipation[ICD10: K59.01] Diagnosis: Right lower quadrant pain[ICD10: R10.31] Cherry Riggs MD, [facility] CPT-4: 95941 10/06/2018 ([id number]) 25559 EST. PATIENT, LEVEL III Diagnosis: Candidiasis of skin and nail[ICD10: B37.2] Gin Riggs MD, [facility] CPT-4: 17653 08/08/2018 ([id number]) 34520 EST. 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 PATIENT, LEVEL III Diagnosis: Dysuria[ICD10: R30.0] Cherry Riggs MD, [facility] CPT-4: 10129 02/16/2018 ([id number]) 32211 EST. PATIENT, LEVEL III Diagnosis: Pain in left knee[ICD10: M25.562] Gin Riggs MD, [facility] CPT- 4: 58491 12/20/2017 ([id number]) PREV VISIT EST AGE 40-64 Diagnosis: Encounter for general adult medical examination without abnormal findings[ICD10: Z00.00] Diagnosis: Dysuria[ICD10: R30.0] Diagnosis: Other allergic rhinitis[ICD10: J30.89] Gin Riggs MD, [facility] CPT-4: 70795 11/26/2017 [id number] EST. PATIENT, LEVEL IV Diagnosis: Other acute sinusitis[ICD10: J01.80] Diagnosis: Other allergic rhinitis[ICD10: J30.89] Cherry Riggs MD, [facility] CPT- 4: 62997 07/21/2017 00730 EST. PATIENT, LEVEL IV Diagnosis: Allergic contact dermatitis due to plants, except food[ICD10: L23.7] Cherry Riggs MD, [facility] CPT-4: 70237 04/05/2017 ([id number]) 11323 EST. PATIENT, LEVEL III Diagnosis: Acute recurrent maxillary sinusitis[ICD10: J01.01] Gin Riggs MD, [facility] CPT-4: 00444 03/22/2017 09316 EST. PATIENT, LEVEL IV Diagnosis: Other acute sinusitis[ICD10: J01.80] Diagnosis: Other allergic rhinitis[ICD10: J30.89] Cherry Riggs MD, [facility] CPT- 4: 49925 02/24/2017 ([id number]) 80008 EST. PATIENT, LEVEL III Diagnosis: Acute laryngopharyngitis[ICD10: J06.0] Gin Riggs MD, [facility] CPT-4: 65905 08/20/2016 19235 EST. PATIENT, LEVEL III Diagnosis: Pain in right shoulder[ICD10: M25.511] Cherry Riggs MD, [facility] CPT- 4: 58884 06/10/2016 ([id number]) 63164 EST. PATIENT, LEVEL II Diagnosis: Melanocytic nevi, unspecified[ICD10: D22.9] Gin Riggs MD, [facility] CPT-4: 11832 02/07/2016 69424 EST. PATIENT, LEVEL III Diagnosis: Other acute sinusitis[ICD10: J01.80] Diagnosis: Other allergic rhinitis[ICD10: J30.89] Cherry Riggs MD, [facility] CPT- 4: 10715 01/08/2016 ([id number]) 13566 EST. PATIENT, LEVEL III Diagnosis: Acute recurrent maxillary sinusitis[ICD10: J01.01] Gin Riggs MD, [facility] CPT-4: 92458 07/30/2015 ([id number]) PREV VISIT EST AGE 18-39 Diagnosis: Encounter for general adult medical examination without abnormal findings[ICD10: Z00.00] Diagnosis: Allergic rhinitis, unspecified[ICD10: J30.9] Gin Riggs MD, [facility] CPT-4: 81985 03/22/2015 ([id number]) 46355 EST. PATIENT, LEVEL III Diagnosis: Influenza[ICD9: 487.1] Gin Riggs MD, [facility] CPT-4: 52290 06/20/2012 33163 EST. PATIENT, LEVEL II Diagnosis: DYSURIA[ICD9: 788.1] Diagnosis: Screen for sexually transmitted diseases[ICD9: V74.5] Gin Riggs MD, [facility] CPT-4: 04467 03/18/2012 ([id number]) 79673 EST. PATIENT, LEVEL III Diagnosis: ACUTE SINUSITIS[ICD9: 461.9] Gin Riggs MD, [facility] CPT-4: 25392 06/30/2011 30839 EST. PATIENT, LEVEL IV Diagnosis: ESOPHAGEAL REFLUX[ICD9: 530.81] Diagnosis: Constipation[ICD9: 564.00] Claire Riggs MD, [facility] CPT-4: 37974 03/09/2011 OFFICE VISIT, NEW - LEVEL 3 Diagnosis: Encounter for annual health examination[ICD9: V70.0] Diagnosis: Esophageal reflux[ICD9: 530.81] Claire Riggs MD, [facility] CPT-4: 42270 01/12/2011 Plan of Care Planned Activity Notes [...] allergy spray. 10/25/2018 Appointment: Gin Dooley WPtel: [phone] (15 min) Moderate 10/25/2018 Patient Education: Patient [...] this regimen. 10/06/2018 Appointment: Cherry Wagoner WPtel: [phone] (30 min) Complex 10/06/2018 Patient Education: Patient Medication Summary Completed 10/06/2018 Visit Plan: Yeast infection -patient's was positive for yeast infection -will treat patient with diflucan -instructed him to call if symptoms do not resolve and we will re-evaluate or send to urologist for cheryl luation -patient verbalized understanding of plan. 08/08/2018 Appointment: Gin Dooley WPtel: [phone] (30 min) Complex 08/08/2018 Patient Education: Patient Medication Summary Completed 08/08/2018 Visit Plan: Dysuria -irritation -UA negative-recommend patient switch to unscented soap/lotion -monitor symptoms and call if they do no resolve Varicocele -check semen analysis 06/28/2018 Appointment: Gin Dooley WPtel: [facility]5 [phone] [place] (30 min) Complex 06/28/2018 Patient Education: Patient Medication Summary Completed 06/28/2018 Patient Education: Patient Medication Summary Completed 03/15/2018 Visit Plan: Varicocele-grade 3 -discussed with Dr Riggs - start an aspirin daily - discussed anti inflammatories, supportive underwear and to call if symptoms do not resolve or if any worse. Patient verbalized understanding of plan. 02/22/2018 Appointment: Gin Dooley WPtel: [facility]5 [phone] (15 min) Moderate 02/22/2018 Patient Education: Patient [...] to urology 02/16/2018 Appointment: Cherry Wagoner WPtel: [facility]5 [phone] (15 min) Moderate 02/16/2018 Patient Education: Patient Medication Summary Completed 02/16/2018 Patient Education: Patient Medication Summary Completed 01/03/2018 Visit Plan: Left knee pain -suspect meniscal injury -will xray knee today and then schedule MRI for further evaluation -discussed rest, ice and anti inflammatories as directed 12/20/2017 Appointment: Gin Dooley WPtel: [facility]9 [phone] [place] (15 min) Moderate 12/20/2017 Patient Education: Patient Medication Summary Completed 12/20/2017 Care Plan: X-RAY EXAM OF KNEE 3 LOINC : 71288-9 Pending 12/20/2017 Visit Plan: Well Adult - [...] improve. 11/26/2017 Appointment: Gin Dooley WPtel: [phone] [phone] (15 min) Moderate 11/26/2017 Patient Education: Patient [...] allergy spray. 07/21/2017 Appointment: Cherry Wagoner WPtel: [facility]1 [phone] (15 min) Moderate 07/21/2017 Patient Education: Patient Medication Summary Completed 07/21/2017 Visit Plan: Poison Ruthy - pt is to use topical treatments as directed. Pt is cleanse clothing in hot water with soap, and call if symptoms do not improve or if they worsen. 04/05/2017 Appointment: Cherry Wagoner WPtel: [phone] [phone] (10 min) Simple 04/05/2017 Patient Education: Patient [...] spray. 03/22/2017 Appointment: Gin Dooley WPtel: [phone] [phone] (15 min) Moderate 03/22/2017 Patient Education: Patient [...] spray. 02/24/2017 Appointment: Cherry Wagoner WPtel: [phone] [facility] [place] (15 min) Moderate 02/24/2017 Patient Education: [...] fever/discomfort. 08/20/2016 Appointment: Gin Dooley WPtel: [phone] [phone] (10 min) Simple 08/20/2016 Patient Education: Patient [...] for evaluation 02/07/2016 Appointment: Gin Dooley WPtel: [phone] [phone] (30 min) Complex 02/07/2016 Patient Education: Patient Medication Summary Completed 02/07/2016 Care Plan: Referral Order SNOMED-CT : [id number] Pending 02/07/2016 Visit Plan: Sinusitis - Pt [...] the office 03/22/2015 Appointment: Gin Dooley WPtel: [facility]5 [phone] [facility] 03/22/2015 Patient Education: Patient Medication Summary Completed [...] any worse. 06/20/2012 Appointment: Gin Dooley WPtel: [facility]5 [phone] [facility] 06/20/2012 Patient Education: Patient Medication Summary Completed [...] of testing. 03/18/2012 Appointment: Gin Dooley WPtel: [address] [place] [address] Other 03/18/2012 Patient Education: Patient Medication Summary Completed 03/18/2012 Appointment: Claire Riggs WPtel: [facility] Lab Draw 03/17/2012 Patient Education: Patient [...] not resolve. 06/30/2011 Appointment: Gin Dooley WPtel: [address] [place] [address] Other 06/30/2011 Patient Education: Patient Medication Summary [...] at 3:30pm. 03/09/2011 Appointment: Claire Riggs WPtel: [facility]7 [facility] Other 03/09/2011 Patient Education: Patient Medication Summary [...] program. 01/12/2011 App[facility]ment[phone] [facility] 01/12/2011 Patient Education: Patient Medication [...] for evaluation -patient verbalized understanding of plan. SWITCH TO UNSCENTED SOAP-LOTION SEMEN ANALYSIS . [...] in the nasal steroid allergy spray. . Pharyngitis-Discussed natural and expected course of [...] for an antibiotic nasal spray compound that [facility] makes . Sinusitis - Pt has [...] diet and to start an exercise program. . Fever-URI symptoms-body aches-patient is symptomatic for [...] injection today in the office SWITCH TO XYZAL INSTEAD OF THE ZYRTEC [...] in the nasal steroid allergy spray. . Poison Ruthy - pt is to use topical treatments as directed. Pt is cleanse clothing in hot water with soap, and call if symptoms do not improve or if they worsen. . Pharyngitis-Discussed natural and expected course of this diagnosis and need to alert me if symtpoms do not follow expected course, or if any worse. Recommended salt water gargles as needed for pain. Tylenol/motrin as needed for fever/discomfort. . Varicocele-grade 3 -discussed with Dr Riggs -start an aspirin daily - discussed anti inflammatories, supportive underwear and to call if symptoms do not resolve or if any worse. Patient verbalized understanding of plan.
--- OUTSIDE RECORDS SUMMARY | 2018-11-22 06:58 | XMS REPORT | CCD ---
Author Author [facility] Organization [facility] Address [address] [place] [address] Phone Care Team Providers Care Channel Development Manager Name Role Phone Claire Riggs PP Unavailable CCM Unavailable Summary Purpose Interface Exchange Insurance Providers Payer name Policy type / Coverage type Covered alliance party ID Effective Begin Date Effective End Date [facility] [id number] Unknown Family history Mother Diagnosis Age At Onset Cancer Unknown Brother Diagnosis Age At Onset No Family Disease Entered N/A Grandmother Diagnosis Age At Onset Cancer Unknown Father Diagnosis Age At Onset No Family Disease Entered N/A Social History Social History Element Codes Description Effective Dates Marital status Unknown 01/12/2011 Employment Unknown 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 Unknown Has never used illegal drugs 01/12/2011 Allergies, Adverse Reactions, Alerts Substance Reaction Codes Entered Date Inactivated Date Status * NO KNOWN FOOD ALLERGIES Unknown 01/12/2011 No Inactive Date Active bactrim RxNorm: 264384 03/22/2015 No Inactive Date Active Past Medical [...] Start Date Stop Date Status Fill Instructions Yuridia-D 12 Hour 60 mg-120 mg tablet,extended release RxNorm: 987197 1 Tablet(s) PO BID 09/07/2018 No Stop Date Active fluconazole 150 mg tablet RxNorm: 908090 1 Tablet(s) PO daily 08/08/2018 08/14/2018 Inactive omeprazole 20 mg capsule,delayed release RxNorm: 844988 1 Capsule(s) PO daily 06/28/2018 10/25/2018 Inactive Flonase 50 mcg/actuation nasal spray,suspension RxNorm: 3003572 1 [place] NASAL BID 06/22/2018 No Stop Date Active Zyrtec-D 5 mg-120 mg tablet,extended release RxNorm: 9998321 1 Tablet(s) PO BID as needed 06/22/2018 No Stop Date Active Augmentin 875 mg-125 mg tablet RxNorm: 125668 1 Tablet(s) PO BID 06/02/2018 06/08/2018 Inactive Zithromax Z-Surya 250 mg tablet RxNorm: 528978 1 Tablet(s) PO UD 03/24/2018 06/01/2018 Inactive Flonase 50 mcg/actuation nasal spray,suspension RxNorm: 9391778 1 [place] NASAL BID 03/01/2018 06/21/2018 Inactive Cipro 500 mg tablet RxNorm: 823050 1 Tablet(s) PO BID 02/16/2018 02/25/2018 Inactive Diflucan 150 mg tablet RxNorm: 418257 1 Tablet(s) PO daily start after cipro is finished 02/16/2018 02/22/2018 Inactive Augmentin 875 mg-125 mg tablet RxNorm: 110105 1 Tablet(s) PO BID 12/24/2017 12/23/2017 Inactive Augmentin 875 mg-125 mg tablet RxNorm: 567704 1 Tablet(s) PO BID 12/24/2017 12/30/2017 Inactive Keflex 500 mg capsule RxNorm: 701107 1 Capsule(s) PO TID 12/08/2017 12/14/2017 Inactive Yuridia-D 12 Hour 60 mg-120 mg tablet,extended release RxNorm: 521045 1 Tablet(s) PO BID 12/06/2017 09/06/2018 Inactive Keflex 500 mg capsule RxNorm: 644965 1 Capsule(s) PO TID 11/26/2017 12/02/2017 Inactive Flonase 50 mcg/actuation nasal spray,suspension RxNorm: 2371282 1 [place] NASAL BID 11/15/2017 02/28/2018 Inactive Yuridia Allergy 180 mg tablet RxNorm: 407437 1 Tablet(s) PO daily 10/27/2017 10/27/2017 Inactive Zyrtec-D 5 mg-120 mg tablet,extended release RxNorm: 4347807 1 Tablet(s) PO BID as needed 10/20/2017 06/21/2018 Inactive Yuridia Allergy 180 mg tablet RxNorm: 849985 1 Tablet(s) PO daily 09/21/2017 10/20/2017 Inactive Augmentin 500 mg-125 mg tablet RxNorm: 310509 1 Tablet(s) PO TID 07/21/2017 07/30/2017 Inactive Yuridia Allergy 180 mg tablet RxNorm: 555843 1 Tablet(s) PO daily 07/21/2017 08/19/2017 Inactive Zyrtec-D 5 mg-120 mg tablet,extended release RxNorm: 4397689 1 Tablet(s) PO BID as needed 06/15/2017 10/19/2017 Inactive Zyrtec-D 5 mg-120 mg tablet,extended release RxNorm: 2399637 1 Tablet(s) PO BID as needed 05/11/2017 02/21/2018 Inactive prednisone 10 mg tablet RxNorm: 461107 Tablet(s) PO 04/05/2017 12/07/2017 Inactive 6,5,4,3,2,1 Kenalog 40 mg/mL suspension for injection RxNorm: 5571036 1 Milliliter(s) Inj 04/05/2017 04/05/2017 Inactive Flonase 50 mcg/actuation nasal spray,suspension RxNorm: 2048775 1 [place] NASAL BID 04/01/2017 11/14/2017 Inactive Augmentin 875 mg-125 mg tablet RxNorm: 389421 1 Tablet(s) PO BID 03/22/2017 03/28/2017 Inactive prednisone 20 mg tablet RxNorm: 356190 2 Tablet(s) PO daily 03/02/2017 03/06/2017 Inactive prednisone 20 mg tablet RxNorm: 857559 2 Tablet(s) PO daily 03/02/2017 03/01/2017 Inactive Zithromax Z-Surya 250 mg tablet RxNorm: 932180 1 Tablet(s) PO UD 02/24/2017 03/21/2017 Inactive Kenalog 40 mg/mL suspension for injection RxNorm: 3900994 1 Milliliter(s) Inj 02/24/2017 02/24/2017 Inactive Zyrtec-D 5 mg-120 mg tablet,extended release RxNorm: 2733508 1 Tablet(s) PO BID as needed 02/05/2017 05/10/2017 Inactive Zyrtec-D 5 mg-120 mg tablet,extended release RxNorm: 4327787 1 Tablet(s) PO BID as needed 12/01/2016 02/04/2017 Inactive Zyrtec-D 5 mg-120 mg tablet,extended release RxNorm: 9941872 1 Tablet(s) PO BID as needed 11/03/2016 11/30/2016 Inactive Zyrtec-D 5 mg-120 mg tablet,extended release RxNorm: 2798760 1 Tablet(s) PO BID as needed 10/09/2016 11/02/2016 Inactive Kenalog 40 mg/mL suspension for injection RxNorm: 3916236 1 Milliliter(s) Inj 09/16/2016 09/16/2016 Inactive Levaquin 500 mg tablet RxNorm: 555093 1 Tablet(s) PO daily 09/15/2016 09/24/2016 Inactive Levaquin 500 mg tablet RxNorm: 954275 1 Tablet(s) PO daily 09/15/2016 09/14/2016 Inactive prednisone 20 mg tablet RxNorm: 889279 1 Tablet(s) PO BID 09/15/2016 09/19/2016 Inactive amoxicillin 500 mg tablet RxNorm: 477182 1 Tablet(s) PO BID 08/20/2016 08/29/2016 Inactive Augmentin 875 mg-125 mg tablet RxNorm: 963165 1 Tablet(s) PO BID 04/23/2016 04/28/2016 Inactive Zyrtec-D 5 mg-120 mg tablet,extended release RxNorm: 9056072 1 Tablet(s) PO BID as needed 01/31/2016 10/08/2016 Inactive Flonase 50 mcg/actuation nasal spray,suspension RxNorm: 2272913 1 [place] NASAL BID 01/08/2016 01/22/2016 Inactive Flonase 50 mcg/actuation nasal spray,suspension RxNorm: 1493187 1 [place] NASAL BID 01/08/2016 01/07/2016 Inactive 1 spray each nare x 5 days Zithromax Z-Surya 250 mg tablet RxNorm: 252918 Tablet(s) PO 01/08/2016 01/30/2016 Inactive Zyrtec-D 5 mg-120 mg tablet,extended release RxNorm: 7407952 1 Tablet(s) PO BID as needed 01/08/2016 01/30/2016 Inactive Augmentin 875 mg-125 mg tablet RxNorm: 656840 1 Tablet(s) PO BID 10/08/2015 10/17/2015 Inactive Augmentin 875 mg-125 mg tablet RxNorm: 258141 1 Tablet(s) PO BID 10/08/2015 10/07/2015 Inactive prednisone 20 mg tablet RxNorm: 141414 1 Tablet(s) PO BID 08/01/2015 08/05/2015 Inactive prednisone 20 mg tablet RxNorm: 894193 1 Tablet(s) PO BID 08/01/2015 07/31/2015 Inactive Kenalog 40 mg/mL suspension for injection RxNorm: 5231549 Milliliter(s) Inj 07/30/2015 07/30/2015 Inactive Zyrtec-D 5 mg-120 mg tablet,extended release RxNorm: 4267876 1 Tablet(s) PO BID as needed 07/30/2015 01/07/2016 Inactive Augmentin 875 mg-125 mg tablet RxNorm: 295209 1 Tablet(s) PO BID 07/30/2015 08/05/2015 Inactive Kenalog 40 mg/mL suspension for injection RxNorm: 3043203 1 Milliliter(s) Inj 03/22/2015 03/22/2015 Inactive Flonase 50 mcg/actuation Nasal [place] RxNorm: 3673149 1 [place] NASAL 07/12/2012 07/11/2012 Inactive 1 spray each nare x 5 days Flonase 50 mcg/actuation Nasal [place] RxNorm: 1476151 1 [place] NASAL 07/12/2012 07/16/2012 Inactive 1 spray each nare x 5 days cefdinir 300 mg capsule RxNorm: 017487 1 Capsule(s) PO BID 07/12/2012 07/18/2012 Inactive cefdinir 300 mg capsule RxNorm: 351920 1 Capsule(s) PO BID 07/12/2012 07/11/2012 Inactive Tamiflu 75 mg capsule RxNorm: 999677 1 Capsule(s) PO BID 06/20/2012 06/24/2012 Inactive Tamiflu 75 mg capsule RxNorm: 772098 1 Capsule(s) PO BID 06/20/2012 06/19/2012 Inactive Diflucan 150 mg tablet RxNorm: 038346 1 Tablet(s) PO daily 04/21/2012 05/04/2012 Inactive nystatin 100,000 unit/g Topical Cream RxNorm: 002060 1 Application TOP TID 04/13/2012 05/02/2012 Inactive one application to groin tid Diflucan 150 mg tablet RxNorm: 527914 1 Tablet(s) PO daily 04/04/2012 04/06/2012 Inactive nystatin 100,000 unit/g Topical Cream RxNorm: 127934 1 Application TOP TID 04/04/2012 04/03/2012 Inactive one application to groin tid x 10 day nystatin 100,000 unit/g Topical Cream RxNorm: 113429 1 Application TOP TID 04/04/2012 04/12/2012 Inactive one application to groin tid x 10 day Diflucan 150 mg tablet RxNorm: 374772 1 Tablet(s) PO daily 03/23/2012 03/22/2012 Inactive Diflucan 150 mg tablet RxNorm: 165557 1 Tablet(s) PO daily 03/23/2012 03/29/2012 Inactive Rocephin 1 gram Solution for Injection RxNorm: 3883885 Inj 03/18/2012 03/18/2012 Inactive Augmentin 500 mg-125 mg tablet RxNorm: 151325 1 Tablet(s) PO TID 03/11/2012 03/10/2012 Inactive Augmentin 500 mg-125 mg tablet RxNorm: 686621 1 Tablet(s) PO TID 03/11/2012 03/17/2012 Inactive Kenalog 40 mg/mL Susp for Injection RxNorm: 3808724 1 Milliliter(s) Inj 07/02/2011 07/02/2011 Inactive Rocephin 500 mg Solution for Injection RxNorm: 2928979 1 Milliliter(s) Inj 07/02/2011 07/02/2011 Inactive Bactrim DS 800 mg-160 mg Tab RxNorm: 677549 1 Tablet(s) PO BID 06/30/2011 07/09/2011 Inactive multivitamin Oral RxNorm: Oral No Start Date Active omeprazole 40 mg Cap, Delayed Release RxNorm: 065537 1 Capsule(s) PO PRN No Start Date Active dicyclomine 20 mg tablet RxNorm: 463766 1 Tablet(s) PO TID No Start Date Active Yuridia-D 12 Hour 60 mg-120 mg tablet,extended release RxNorm: 313293 1 Tablet(s) PO BID No Start Date 12/05/2017 Inactive Zithromax 500 mg tablet RxNorm: 895993 2 Tablet(s) PO daily No Start Date 01/30/2016 Inactive Aspirin For Children 81 mg Chewable Tab RxNorm: 705483 1 Tablet(s) PO daily No Start Date 08/07/2018 Inactive Zyrtec-D 5 mg-120 mg 12 hr Tab RxNorm: 1726722 1 Tablet(s) PO daily No Start Date 07/29/2015 Inactive Medication Administered Medication Codes Instructions Start Date Status Kenalog 40 mg/mL suspension for injection RxNorm: 9743602 1Milliliter 04/05/2017 No longer Active Kenalog 40 mg/mL suspension for injection RxNorm: 5395930 1Milliliter 02/24/2017 No longer Active Kenalog 40 mg/mL suspension for injection RxNorm: 1737174 1Milliliter 09/16/2016 No longer Active Kenalog 40 mg/mL suspension for injection RxNorm: 4595500 Milliliter 07/30/2015 No longer Active Kenalog 40 mg/mL suspension for injection RxNorm: 9393583 1Milliliter 03/22/2015 No longer Active Rocephin 1 gram Solution for Injection RxNorm: 1720642 03/18/2012 No longer Active Rocephin 500 mg Solution for Injection RxNorm: 7455594 1Milliliter 07/02/2011 No longer Active Kenalog 40 mg/mL Susp for Injection RxNorm: 5415632 1Milliliter 07/02/2011 No longer Active Immunizations Vaccine [...] Item Item Code Result Date Comp Metabolic Plm909 NA 139 mEq/L 03/15/2018 Comp Metabolic Aak792 K 4.2 mEq/L 03/15/2018 Comp Metabolic Jah635 CL 101 mEq/L 03/15/2018 Comp Metabolic Hir182 CO2 32.0 mEq/L 03/15/2018 Comp Metabolic Jko508 ANION GAP 10 03/15/2018 Comp Metabolic Xqa335 GLUCOSE 94 mg/dL 03/15/2018 Comp Metabolic Qww665 Creat 0.9 mg/dL 03/15/2018 Comp Metabolic Xtb177 eGFR 104 ml/min/1.73m2 03/15/2018 Comp Metabolic Cyq592 BUN 14 mg/dL 03/15/2018 Comp Metabolic Hup813 B/C Ratio 16.3 Ratio 03/15/2018 Comp Metabolic Iee283 CALCIUM 9.8 mg/dL 03/15/2018 Comp Metabolic Ijd914 ALK PHOS 75 U/L 03/15/2018 Comp Metabolic Trj868 AST(SGOT) 20 U/L 03/15/2018 Comp Metabolic Cxc285 ALT(SGPT) 30 U/L 03/15/2018 Comp Metabolic Zpr380 BILI T 1.2 mg/dL 03/15/2018 Comp Metabolic Ehj875 ALBUMIN 4.7 g/dL 03/15/2018 Comp Metabolic Kvu088 TPRO 7.2 g/dL 03/15/2018 Comp Metabolic Heh812 GLOB 2.5 g/dL 03/15/2018 Comp Metabolic Biw982 A/G Ratio 1.9 Ratio 03/15/2018 Comp Metabolic Kdb456 Osmo 278 mOsmo 03/15/2018 Urine Culture Ucult [...] if culture needed 01/04/2018 Hepatitis Panel (Abc) 56908 HEPATITIS B SURFACE AG . 12/09/2017 Hepatitis Panel (Abc) 26346 HEPATITIS B SURFACE AG NEGATIVE 12/09/2017 Hepatitis Panel (Abc) 87828 HEPATITIS B CORE AB, IGM . 12/09/2017 Hepatitis Panel (Abc) 51507 HEPATITIS B CORE AB, IGM NEGATIVE 12/09/2017 Hepatitis Panel (Abc) 12678 HEPATITIS A AB, IGM . 12/09/2017 Hepatitis Panel (Abc) 70751 HEPATITIS A AB, IGM NEGATIVE 12/09/2017 Hepatitis Panel (Abc) 09589 HEPATITIS C ANTIBODY . 12/09/2017 Hepatitis Panel (Abc) 86482 HEPATITIS C ANTIBODY NEGATIVE 12/09/2017 Tsh Ord6 TSH (3rd IS) 2.24 uIU/mL 11/29/2017 Comp Metabolic Vpf077 NA 138 mEq/L 11/29/2017 Comp Metabolic Hpu102 K 4.1 mEq/L 11/29/2017 Comp Metabolic Kiy906 CL 101 mEq/L 11/29/2017 Comp Metabolic Ydq809 CO2 30.0 mEq/L 11/29/2017 Comp Metabolic Vpg619 ANION GAP 11 11/29/2017 Comp Metabolic Jbm033 GLUCOSE 89 mg/dL 11/29/2017 Comp Metabolic Krs350 Creat 0.8 mg/dL 11/29/2017 Comp Metabolic Txc967 eGFR 107 ml/min/1.73m2 11/29/2017 Comp Metabolic Pdl442 BUN 15 mg/dL 11/29/2017 Comp Metabolic Kgs933 B/C Ratio 17.9 Ratio 11/29/2017 Comp Metabolic Qjo748 CALCIUM 9.4 mg/dL 11/29/2017 Comp Metabolic Rvi263 ALK PHOS 71 U/L 11/29/2017 Comp Metabolic Qaq820 AST(SGOT) 19 U/L 11/29/2017 Comp Metabolic Iqm632 ALT(SGPT) 27 U/L 11/29/2017 Comp Metabolic Zvz374 BILI T 1.8 mg/dL 11/29/2017 Comp Metabolic Mxb014 ALBUMIN 4.4 g/dL 11/29/2017 Comp Metabolic Afg936 TPRO 6.8 g/dL 11/29/2017 Comp Metabolic Bsl692 GLOB 2.5 g/dL 11/29/2017 Comp Metabolic Uii652 A/G Ratio 1.8 Ratio 11/29/2017 Comp Metabolic Vhf286 Osmo 276 mOsmo 11/29/2017 Urine Culture Ucult [...] 27.4 pg 11/29/2017 Cbc With Differential Ord2 [place]% 8.3 % 11/29/2017 Cbc With Differential Ord2 [...] 3.16 K/ul 11/29/2017 Cbc With Differential Ord2 [place] ABS# 0.7 K/ul 11/29/2017 Cbc With Differential Ord2 Eos ABS# 0.2 K/ul 11/29/2017 Cbc With Differential Ord2 Baso ABS# 0.0 K/ul 11/29/2017 C RAP A SC [id number] Strep A Negative 08/20/2016 GC/CHL PRB 5379549 SOURCE CASSANDRA UNKNOWN 03/19/2012 GC/CHL PRB 8889284 CHLM PROBE NEG 03/19/2012 GC/CHL PRB 4277826 GC PROBE NEG 03/19/2012 URINALYSIS NONAUTO W/O SCOPE 98458 Specific [place] 1.010 DateTime(Free Text in Aprima) URINALYSIS NONAUTO W/O SCOPE 61610 PH 6.5 DateTime(Free Text in Aprima) URINALYSIS NONAUTO W/O SCOPE 11785 GLUCOSE neg DateTime(Free Text in Aprima) URINALYSIS NONAUTO W/O SCOPE 74815 Protein neg DateTime(Free Text in Aprima) URINALYSIS NONAUTO W/O SCOPE 22609 Blood neg DateTime(Free Text in Aprima) URINALYSIS NONAUTO W/O SCOPE 38988 Bilirubin neg DateTime(Free Text in Aprima) URINALYSIS NONAUTO W/O SCOPE 95688 Ketones neg DateTime(Free Text in Aprima) URINALYSIS NONAUTO W/O SCOPE 45543 Urobilinogen neg DateTime(Free Text in Aprima) URINALYSIS NONAUTO W/O SCOPE 90619 Nitrite neg DateTime(Free Text in Aprima) URINALYSIS NONAUTO W/O SCOPE 55292 Leukocytes neg DateTime(Free Text in Aprima) Review of Systems System Result Effective Dates [...] normal 02/16/2018 None Full Exam - General 1994 Ears/Nose/Throat lips/teeth/gingiva Overall: benign lips 02/16/2018 None Full Exam - General 1994 Ears/Nose/Throat [...] compartment) 12/20/2017 None Full Exam - General 1995 Constitutional general appearance Overall: well developed 11/26/2017 [...] Codes Date URINALYSIS NONAUTO W/O SCOPE CPT-4: 92087 06/28/2018 TRIAMCINOLONE ACET INJ NOS CPT-4: J3301 04/05/2017 TRIAMCINOLONE ACET INJ NOS CPT-4: J3301 02/24/2017 THER/PROPH/DIAG INJ SC/IM CPT-4: 77936 09/16/2016 TRIAMCINOLONE ACET INJ NOS CPT-4: J3301 09/16/2016 TRIAMCINOLONE ACET INJ NOS CPT-4: J3301 07/30/2015 TRIAMCINOLONE ACET INJ NOS CPT-4: J3301 03/22/2015 ROCEPHIN, PER 250 MG CPT- 4: J0696 03/18/2012 URINALYSIS NONAUTO W/O SCOPE CPT-4: 05044 03/17/2012 ROCEPHIN, PER 250 MG CPT- 4: J0696 06/30/2011 TRIAMCINOLONE ACET INJ NOS CPT-4: J3301 06/30/2011 Vital Signs Date Vital 10/25/2018 Blood Pressure 1: 118/74 Code: 8480-6 BMI: 23.4 Code: 12413-3 Heart Rate 1: 75 bpm Height: 6'2" SpO2: 98% Weight: 182 lbs 10/06/2018 Height: Weight: 08/08/2018 Blood Pressure 1: 122/80 Code: 8480-6 Heart Rate 1: 84 bpm Height: 6'2" SpO2: 98% 06/28/2018 Blood Pressure 1: 122/82 Code: 8480-6 BMI: 24.0 Code: 65057-9 Heart Rate 1: 91 bpm Height: 6'2" SpO2: 98% Weight: 187 lbs 02/22/2018 Blood Pressure 1: 110/80 Code: 8480-6 Heart Rate 1: 74 bpm Height: 6'2" SpO2: 98% Weight: 02/16/2018 Blood Pressure 1: 130/72 Code: 8480-6 BMI: 24.0 Code: 56563-9 Heart Rate 1: 82 bpm Height: 6'2" SpO2: 97% Weight: 187 lbs 12/20/2017 Blood Pressure 1: 128/88 Code: 8480-6 BMI: 23.1 Code: 05329-4 Heart Rate 1: 86 bpm Height: 6'2" SpO2: 98% Weight: 180 lbs 11/26/2017 Blood Pressure 1: 122/80 Code: 8480-6 BMI: 23.1 Code: 67397-3 Heart Rate 1: 56 bpm Height: 6'2" SpO2: 98% Weight: 180 lbs 07/21/2017 Blood Pressure 1: 120/78 Code: 8480-6 BMI: 21.8 Code: 68127-4 Heart Rate 1: 88 bpm Height: 6'2" SpO2: 97% Weight: 170 lbs 04/05/2017 Blood Pressure 1: 126/68 Code: 8480-6 BMI: 22.6 Code: 17247-4 Heart Rate 1: 80 bpm Height: 6'2" SpO2: 98% Weight: 176 lbs 03/22/2017 Blood Pressure 1: 120/72 Code: 8480-6 BMI: 22.5 Code: 76215-8 Heart Rate 1: 82 bpm Height: 6'2" SpO2: 98% Temperature: 36.8 (C) / 98.3 (F) Weight: 175 lbs 02/24/2017 Blood Pressure 1: 120/62 Code: 8480-6 BMI: 22.5 Code: 86930-2 Heart Rate 1: 84 bpm Height: 6'2" SpO2: 98% Weight: 175 lbs 08/20/2016 Blood Pressure 1: 126/78 Code: 8480-6 BMI: 24.1 Code: 51951-2 Heart Rate 1: 84 bpm Height: 6'2" SpO2: 98% Temperature: 37.1 (C) / 98.8 (F) Weight: 188 lbs 06/10/2016 Blood Pressure 1: 124/62 Code: 8480-6 BMI: 24.4 Code: 33867-3 Heart Rate 1: 85 bpm Height: 6'2" SpO2: 98% Weight: 190 lbs 02/07/2016 Blood Pressure 1: 128/72 Code: 8480-6 BMI: 23.6 Code: 88607-9 Heart Rate 1: 78 bpm Height: 6'2" SpO2: 96% Weight: 184 lbs 01/08/2016 Blood Pressure 1: 108/70 Code: 8480-6 BMI: 23.4 Code: 78881-0 Heart Rate 1: 84 bpm Height: 6'2" SpO2: 96% Weight: 182 lbs 07/30/2015 Blood Pressure 1: 110/64 Code: 8480-6 BMI: 22.6 Code: 24200-1 Heart Rate 1: 78 bpm Height: 6'2" SpO2: 98% Weight: 176 lbs 03/22/2015 Blood Pressure 1: 126/80 Code: 8480-6 BMI: 24.0 Code: 61840-7 Heart Rate 1: 76 bpm Height: 6'2" SpO2: 98% Weight: 187 lbs 06/20/2012 Blood Pressure 1: 110/76 Code: 8480-6 Heart Rate 1: 100 bpm Temperature: 38.7 (C) / 101.7 (F) Weight: 169 lbs 03/18/2012 Blood Pressure 1: 132/70 Code: 8480-6 Heart Rate 1: 80 bpm Weight: 160 lbs 06/30/2011 Blood Pressure 1: 110/72 Code: 8480-6 BMI: 23.9 Code: 37460-1 Heart Rate 1: 72 bpm Height: 6'2" Respiratory Rate: 20 bpm Weight: 186 lbs 03/09/2011 Blood Pressure 1: 96/58 Code: 8480-6 BMI: 23.2 Code: 64333- 5 Heart Rate 1: 80 bpm Height: 6'2" Respiratory Rate: 16 bpm Weight: 183 lbs 01/12/2011 Blood Pressure 1: 126/80 Code: 8480-6 BMI: 23.5 Code: 48773-1 Heart Rate 1: 82 bpm Height: 6'2" [...] 04/05/2017 None rash Location-Head/Neck on the left [facility] 04/05/2017 None rash Location-Head/Neck on the forehead [...] data Encounters Encounter Performer Location Codes Date (213 EST. PATIENT, LEVEL III Diagnosis: Irritable bowel syndrome with constipation[ICD10: K58.1] Diagnosis: Other allergic rhinitis[ICD10: J30.89] Gin Riggs MD, [facility] CPT-4: 18631 10/25/2018 14359 EST. PATIENT, LEVEL III Diagnosis: Slow transit constipation[ICD10: K59.01] Diagnosis: Right lower quadrant pain[ICD10: R10.31] Cherry Riggs MD, [facility] CPT-4: 79386 10/06/2018 ([id number]) 52976 EST. PATIENT, LEVEL III Diagnosis: Candidiasis of skin and nail[ICD10: B37.2] Gin Riggs MD, [facility] CPT-4: 55659 08/08/2018 ([id number]) 46966 EST. 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 PATIENT, LEVEL III Diagnosis: Dysuria[ICD10: R30.0] [facility] CPT-4: 63310 02/16/2018 ([id number]) 64083 EST. PATIENT, LEVEL III Diagnosis: Pain in left knee[ICD10: M25.562] [facility] CPT- 4: 80653 12/20/2017 ([id number]) PREV VISIT EST AGE 40-64 Diagnosis: Encounter for general adult medical examination without abnormal findings[ICD10: Z00.00] Diagnosis: Dysuria[ICD10: R30.0] Diagnosis: Other allergic rhinitis[ICD10: J30.89] Gin Riggs MD, [facility] CPT-4: 48690 11/26/2017 46633 EST. PATIENT, LEVEL IV Diagnosis: Other acute sinusitis[ICD10: J01.80] Diagnosis: Other allergic rhinitis[ICD10: J30.89] Cherry Riggs MD, [facility] CPT- 4: 78156 07/21/2017 20850 EST. PATIENT, LEVEL IV Diagnosis: Allergic contact dermatitis due to plants, except food[ICD10: L23.7] Cherry Riggs MD, [facility] CPT-4: 96732 04/05/2017 ([id number]) 74126 EST. PATIENT, LEVEL III Diagnosis: Acute recurrent maxillary sinusitis[ICD10: J01.01] Gin Riggs MD, [facility] CPT-4: 82675 03/22/2017 12140 EST. PATIENT, LEVEL IV Diagnosis: Other acute sinusitis[ICD10: J01.80] Diagnosis: Other allergic rhinitis[ICD10: J30.89] Cherry Riggs MD, [facility] CPT- 4: 94501 02/24/2017 ([id number]) 16561 EST. PATIENT, LEVEL III Diagnosis: Acute laryngopharyngitis[ICD10: J06.0] Gin Riggs MD, [facility] CPT-4: 09373 08/20/2016 20610 EST. PATIENT, LEVEL III Diagnosis: Pain in right shoulder[ICD10: M25.511] Cherry Riggs MD, [facility] CPT- 4: 00838 06/10/2016 ([id number]) 45537 EST. PATIENT, LEVEL II Diagnosis: Melanocytic nevi, unspecified[ICD10: D22.9] Gin Riggs MD, [facility] CPT-4: 08908 02/07/2016 02904 EST. PATIENT, LEVEL III Diagnosis: Other acute sinusitis[ICD10: J01.80] Diagnosis: Other allergic rhinitis[ICD10: J30.89] Cherry Riggs MD, [facility] CPT- 4: 03224 01/08/2016 ([id number]) 80530 EST. PATIENT, LEVEL III Diagnosis: Acute recurrent maxillary sinusitis[ICD10: J01.01] Gin Riggs MD, [facility] CPT-4: 82788 07/30/2015 ([id number]) PREV VISIT EST AGE 18-39 Diagnosis: Encounter for general adult medical examination without abnormal findings[ICD10: Z00.00] Diagnosis: Allergic rhinitis, unspecified[ICD10: J30.9] Gin Riggs MD, [facility] CPT-4: 37141 03/22/2015 ([id number]) 19205 EST. PATIENT, LEVEL III Diagnosis: Influenza[ICD9: 487.1] Gin Riggs MD, [facility] CPT-4: 68367 06/20/2012 19769 EST. PATIENT, LEVEL II Diagnosis: DYSURIA[ICD9: 788.1] Diagnosis: Screen for sexually transmitted diseases[ICD9: V74.5] Gin Riggs MD, [facility] CPT-4: 33260 03/18/2012 ([id number]) 12639 EST. PATIENT, LEVEL III Diagnosis: ACUTE SINUSITIS[ICD9: 461.9] Gin Riggs MD, [facility] CPT-4: 81719 06/30/2011 89080 EST. PATIENT, LEVEL IV Diagnosis: ESOPHAGEAL REFLUX[ICD9: 530.81] Diagnosis: Constipation[ICD9: 564.00] Claire Riggs MD, [facility] CPT-4: 40801 03/09/2011 OFFICE VISIT, NEW - LEVEL 3 Diagnosis: Encounter for annual health examination[ICD9: V70.0] Diagnosis: Esophageal reflux[ICD9: 530.81] Claire Riggs MD, [facility] CPT-4: 62808 01/12/2011 Plan of Care Planned Activity Notes [...] in the nasal steroid allergy spray. 10/25/2018 Patient Education: Patient Medication Summary Completed [...] this regimen. 10/06/2018 Appointment: [phone] [facility] 10/06/2018 Patient Education: Patient Medication Summary Completed 10/06/2018 Visit Plan: Yeast infection -patient's was positive for yeast infection -will treat patient with diflucan -instructed him to call if symptoms do not resolve and we will re-evaluate or send to urologist for cheryl luation -patient verbalized understanding of plan. 08/08/2018 Appointment: Gin Dooley WPtel: [phone] (30 min) Complex 08/08/2018 Patient Education: Patient Medication Summary Completed 08/08/2018 Visit Plan: Dysuria -irritation -UA negative-recommend patient switch to unscented soap/lotion -monitor symptoms and call if they do no resolve Varicocele -check semen analysis 06/28/2018 Appointment: Gin Dooley WPtel: [phone] (30 min) Complex 06/28/2018 Patient Education: Patient Medication Summary Completed 06/28/2018 Patient Education: Patient Medication Summary Completed 03/15/2018 Visit Plan: Varicocele-grade 3 -discussed with Dr Riggs - start an aspirin daily - discussed anti inflammatories, supportive underwear and to call if symptoms do not resolve or if any worse. Patient verbalized understanding of plan. 02/22/2018 Appointment: Gin Dooley WPtel: [address] [place], [place] [phone] (15 min) Moderate 02/22/2018 Patient Education: Patient [...] to urology 02/16/2018 Appointment: Cherry Wagoner WPtel: [facility] (15 min) Moderate 02/16/2018 Patient Education: Patient Medication Summary Completed 02/16/2018 Patient Education: Patient Medication Summary Completed 01/03/2018 Visit Plan: Left knee pain -suspect meniscal injury -will xray knee today and then schedule MRI for further evaluation -discussed rest, ice and anti inflammatories as directed 12/20/2017 Appointment: Gin Dooley WPtel: [phone] (15 min) Moderate 12/20/2017 Patient Education: Patient Medication Summary Completed 12/20/2017 Care Plan: X-RAY EXAM OF KNEE 3 LOINC : 67264-1 Pending 12/20/2017 Visit Plan: Well Adult - [...] not improve. 11/26/2017 Appointment: Gin Dooley WPtel: [address]66[facility] (15 min) Moderate 11/26/2017 Patient Education: Patient [...] allergy spray. 07/21/2017 Appointment: Cherry Wagoner WPtel: [phone] (15 min) Moderate 07/21/2017 Patient Education: Patient Medication Summary Completed 07/21/2017 Visit Plan: Poison Ruthy - pt is to use topical treatments as directed. Pt is cleanse clothing in hot water with soap, and call if symptoms do not improve or if they worsen. 04/05/2017 Appointment: Cherry Wagoner WPtel: [phone] [place] [phone] [place] (10 min) Simple 04/05/2017 Patient Education: Patient [...] allergy spray. 03/22/2017 Appointment: Gin Dooley WPtel: [phone] [phone] (15 min) Moderate 03/22/2017 Patient Education: [...] allergy spray. 02/24/2017 Appointment: Cherry Wagoner WPtel: [phone] [facility]66[facility] (15 min) Moderate 02/24/2017 Patient Education: Patient Medication Summary Completed 02/24/2017 Appointment: Injection 09/16/2016 Patient Education: Patient Medication Summary Completed [...] for fever/discomfort. 08/20/2016 Appointment: Gin Dooley WPtel: [phone] [phone] (10 min) Simple 08/20/2016 Patient Education: [...] for evaluation 02/07/2016 Appointment: Gin Dooley WPtel: [phone] (30 min) Complex 02/07/2016 Patient Education: Patient Medication Summary Completed 02/07/2016 Care Plan: Referral Order SNOMED-CT : [id number] Pending 02/07/2016 Visit Plan: Sinusitis - Pt [...] the office 03/22/2015 Appointment: Gin Dooley WPtel: [facility] [place] [phone] Physical 03/22/2015 Patient Education: Patient Medication Summary Completed [...] any worse. 06/20/2012 Appointment: Gin Dooley WPtel: [phone] Sick 06/20/2012 Patient Education: Patient Medication Summary Completed [...] of testing. 03/18/2012 Appointment: Gin Dooley WPtel: [address] [place], [place] [phone] Other 03/18/2012 Patient Education: Patient Medication Summary Completed 03/18/2012 Appointment: Claire Riggs WPtel: [facility]66[facility] Lab Draw 03/17/2012 Patient Education: Patient Medication [...] not resolve. 06/30/2011 Appointment: Gin Dooley WPtel: [phone] [place] [address] Other 06/30/2011 Patient Education: Patient Medication Summary [...] at 3:30pm. 03/09/2011 Appointment: Claire Riggs WPtel: [facility] [place] [phone] [place] Other 03/09/2011 Patient Education: Patient Medication Summary [...] exercise program. 01/12/2011 Appointment: Claire Riggs WPtel: [phone] [place] New Patient 01/12/2011 Patient Education: Patient Medication Summary Completed 01/12/2011 Referral: Maranda Greene WPtel: Referral Appointment Requested Instructions Comment . Sinusitis - Pt has acute infection [...] spray in the nasal steroid allergy spray. xray left knee aleve 2 pills twice daily (take with food) ice rest ortho 4 states if needs referral . Left knee pain -suspect meniscal injury -will xray knee today and then schedule MRI for further evaluation -discussed rest, ice and anti inflammatories as directed . Dysuria-UA negative-gc and chlamydia probe today in the office- Emperic treatment for both STI's today as well-discussed natural and expected course of this diagnosis and to alert me if symptoms do not follow expected course, or if any worse. RX sent to patient's pharmacy and rocephin injection today in the office. We will call patient with results of testing. . RLQ pain, Constipation - uncontrolled - [...] if symptoms not improved on this regimen. . Sinusitis - Pt has acute infection [...] in the nasal steroid allergy spray. . Abnormal mole-right ankle-patients concerned-refer to Dr Greene for evaluation . ESOPHAGEAL REFLUX- recommend pt to take the omeprazole daily as directed and avoid spicy food, caffiene, peppermint, and acidic foods. Fatty foods may also worsen reflux. Chronic constipation alternating with diarrhea is common to see with Irritable bowel syndrome.. Usethe power pudding recipe to keep the stools soft. Appt with Dr. Bartholomew is for March 25 at 3:30pm. COME WEDNESDAY FOR LABS CHECK UA XYZAL [...] to call if symptoms do not improve. SWITCH TO UNSCENTED SOAP-LOTION SEMEN ANALYSIS . Dysuria -irritation -UA negative-recommend patient switch to unscented soap/lotion -monitor symptoms and call if they do no resolve Varicocele -check semen analysis . Yeast infection -patient's was positive for [...] spray in the nasal steroid allergy spray. Zyrtec D Continue flonase Call if your [...] spray. Kenalog injection today in the office . Sinusitis - Pt has acute infection - pain in face, maxillary region, Pt informed to use decongestant, RX given to patient, sinus rinses also recommended. Call if symptoms do not show improvement. Cough-rocephin and kenalog injection today in the office-rx for zpack to patient's pharmacy-call if symptoms do not resolve. . Fever-URI symptoms-body aches-patient is symptomatic for influenza- he is within the treatment range since he had a sudden onset of symptoms this morning-RX for tamiflu sent to patient's pharmacy.- Pt advised to increase fluids, vitamin C. Discussed natural and expected course of this diagnosis and need to alert me if symtpoms do not follow expected course, or if any worse. bring labs by the office take the [...] and to start an exercise program. . Dysuria - ongoing - no other [...] If no improvement will refer to urology jeanie twice a day for the next 3 days . Right shoulder pain - ongoing - Will order MRI - The pt is to use prn antiinflammatories to manage acute pain. The patient is to call the office if the pain is worsening or does not improve. . Sinusitis - Pt has acute infection - pain in face, maxillary region, Pt informed to use decongestant, RX given to patient, sinus rinses also recommended. Call if symptoms do not show improvement. Continue Zyrtec D Add flonase 1 spray each nare twice daily Augmentin twice daily Call if sinus infection does not resolve and we can send in a prescription for an antibiotic nasal spray compound that [facility] pharmacy makes . Sinusitis - Pt [...]
--- OUTSIDE RECORDS SUMMARY | 2018-11-22 07:01 | XMS REPORT | CCD ---
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 Name Role Phone Claire Riggs PP Unavailable CCM Unavailable Summary Purpose Interface Exchange Insurance Providers Payer name Policy type / Coverage type Covered republican ID Effective Begin Date Effective End Date Blue Cross Blue [facility] Blue Cross/[facility] [id number] Unknown Family history Mother Diagnosis Age At Onset Cancer Unknown Brother Diagnosis Age At Onset No Family Disease Entered N/A Grandmother Diagnosis Age At Onset Cancer Unknown Father Diagnosis Age At Onset No Family Disease Entered N/A Social History Social History Element Codes Description Effective Dates Marital status Unknown 01/12/2011 Employment Unknown Currently employed [employer] 01/12/[address]: 401180286 Never smoker 01/12/[address]: 606139 Currently drinks alcohol socially 01/12/2011 Has the patient ever used illegal drugs? Unknown Has never used illegal drugs 01/12/2011 Allergies, Adverse Reactions, Alerts Substance Reaction Codes Entered Date Inactivated Date Status * NO KNOWN FOOD ALLERGIES Unknown 01/12/2011 No Inactive Date Active bactrim RxNorm: 532951 03/22/2015 No Inactive Date Active Past Medical History Illness Codes Condition Status Onset Date Resolved Date Right lower quadrant pain ICD-9: 789.03 ICD-10: [...] ICD-9: 719.46 ICD-10: M25.562 Active 12/20/2017 Unknown Encounter for general adult medical examination without abnormal findings ICD-9: V70.0 ICD-10: Z00.00 Active 03/21/2015 Unknown Other allergic rhinitis ICD-9: 477.8 ICD-10: J30.89 Active 01/07/2016 Unknown Other acute sinusitis ICD- 9: 461.8 [...] Problems Condition Codes Effective Dates Condition Status Right lower quadrant pain ICD-9: 789.03 ICD-10: [...] knee ICD-9: 719.46 ICD-10: M25.562 12/20/2017 Active Encounter for general adult medical examination without abnormal findings ICD-9: V70.0 ICD-10: Z00.00 03/21/2015 Active Other allergic rhinitis ICD-9: 477.8 ICD-10: J30.89 01/07/2016 Active Other acute sinusitis ICD- 9: 461.8 [...] Hour 60 mg-120 mg tablet,extended release RxNorm: 227450 1 Tablet(s) PO BID 09/07/2018 No Stop Date Active fluconazole 150 mg tablet RxNorm: 972169 1 Tablet(s) PO daily 08/08/2018 08/14/2018 Inactive omeprazole 20 mg capsule,delayed release RxNorm: 958246 1 Capsule(s) PO daily 06/28/2018 10/25/2018 Active Flonase 50 mcg/actuation nasal spray,suspension RxNorm: 1060274 1 [place] NASAL BID 06/22/2018 No Stop Date Active Zyrtec-D 5 mg-120 mg tablet,extended release RxNorm: 9454048 1 Tablet(s) PO BID as needed 06/22/2018 No Stop Date Active Augmentin 875 mg-125 mg tablet RxNorm: 447795 1 Tablet(s) PO BID 06/02/2018 06/08/2018 Inactive Zithromax Z-Surya 250 mg tablet RxNorm: 258605 1 Tablet(s) PO UD 03/24/2018 06/01/2018 Inactive Flonase 50 mcg/actuation nasal spray,suspension RxNorm: 7170650 1 [place] NASAL BID 03/01/2018 06/21/2018 Inactive Cipro 500 mg tablet RxNorm: 956283 1 Tablet(s) PO BID 02/16/2018 02/25/2018 Inactive Diflucan 150 mg tablet RxNorm: 372436 1 Tablet(s) PO daily start after cipro is finished 02/16/2018 02/22/2018 Inactive Augmentin 875 mg-125 mg tablet RxNorm: 234007 1 Tablet(s) PO BID 12/24/2017 12/23/2017 Inactive Augmentin 875 mg-125 mg tablet RxNorm: 184172 1 Tablet(s) PO BID 12/24/2017 12/30/2017 Inactive Keflex 500 mg capsule RxNorm: 904605 1 Capsule(s) PO TID 12/08/2017 12/14/2017 Inactive Yuridia-D 12 Hour 60 mg-120 mg tablet,extended release RxNorm: 134722 1 Tablet(s) PO BID 12/06/2017 09/06/2018 Inactive Keflex 500 mg capsule RxNorm: 368165 1 Capsule(s) PO TID 11/26/2017 12/02/2017 Inactive Flonase 50 mcg/actuation nasal spray,suspension RxNorm: 5345997 1 [place] NASAL BID 11/15/2017 02/28/2018 Inactive Yuridia Allergy 180 mg tablet RxNorm: 542051 1 Tablet(s) PO daily 10/27/2017 10/27/2017 Inactive Zyrtec-D 5 mg-120 mg tablet,extended release RxNorm: 1673120 1 Tablet(s) PO BID as needed 10/20/2017 06/21/2018 Inactive Yuridia Allergy 180 mg tablet RxNorm: 666034 1 Tablet(s) PO daily 09/21/2017 10/20/2017 Inactive Augmentin 500 mg-125 mg tablet RxNorm: 027576 1 Tablet(s) PO TID 07/21/2017 07/30/2017 Inactive Yuridia Allergy 180 mg tablet RxNorm: 164607 1 Tablet(s) PO daily 07/21/2017 08/19/2017 Inactive Zyrtec-D 5 mg-120 mg tablet,extended release RxNorm: 5177706 1 Tablet(s) PO BID as needed 06/15/2017 10/19/2017 Inactive Zyrtec-D 5 mg-120 mg tablet,extended release RxNorm: 2352848 1 Tablet(s) PO BID as needed 05/11/2017 02/21/2018 Inactive prednisone 10 mg tablet RxNorm: 181466 Tablet(s) PO 04/05/2017 12/07/2017 Inactive 6,5,4,3,2,1 Kenalog 40 mg/mL suspension for injection RxNorm: 3968950 1 Milliliter(s) Inj 04/05/2017 04/05/2017 Inactive Flonase 50 mcg/actuation nasal spray,suspension RxNorm: 4933329 1 [place] NASAL BID 04/01/2017 11/14/2017 Inactive Augmentin 875 mg-125 mg tablet RxNorm: 417476 1 Tablet(s) PO BID 03/22/2017 03/28/2017 Inactive prednisone 20 mg tablet RxNorm: 555610 2 Tablet(s) PO daily 03/02/2017 03/06/2017 Inactive prednisone 20 mg tablet RxNorm: 833521 2 Tablet(s) PO daily 03/02/2017 03/01/2017 Inactive Zithromax Z-Surya 250 mg tablet RxNorm: 339042 1 Tablet(s) PO UD 02/24/2017 03/21/2017 Inactive Kenalog 40 mg/mL suspension for injection RxNorm: 9452751 1 Milliliter(s) Inj 02/24/2017 02/24/2017 Inactive Zyrtec-D 5 mg-120 mg tablet,extended release RxNorm: 7441854 1 Tablet(s) PO BID as needed 02/05/2017 05/10/2017 Inactive Zyrtec-D 5 mg-120 mg tablet,extended release RxNorm: 7464929 1 Tablet(s) PO BID as needed 12/01/2016 02/04/2017 Inactive Zyrtec-D 5 mg-120 mg tablet,extended release RxNorm: 1512200 1 Tablet(s) PO BID as needed 11/03/2016 11/30/2016 Inactive Zyrtec-D 5 mg-120 mg tablet,extended release RxNorm: 0323192 1 Tablet(s) PO BID as needed 10/09/2016 11/02/2016 Inactive Kenalog 40 mg/mL suspension for injection RxNorm: 3758321 1 Milliliter(s) Inj 09/16/2016 09/16/2016 Inactive Levaquin 500 mg tablet RxNorm: 057041 1 Tablet(s) PO daily 09/15/2016 09/24/2016 Inactive Levaquin 500 mg tablet RxNorm: 778208 1 Tablet(s) PO daily 09/15/2016 09/14/2016 Inactive prednisone 20 mg tablet RxNorm: 813867 1 Tablet(s) PO BID 09/15/2016 09/19/2016 Inactive amoxicillin 500 mg tablet RxNorm: 262327 1 Tablet(s) PO BID 08/20/2016 08/29/2016 Inactive Augmentin 875 mg-125 mg tablet RxNorm: 644889 1 Tablet(s) PO BID 04/23/2016 04/28/2016 Inactive Zyrtec-D 5 mg-120 mg tablet,extended release RxNorm: 4335855 1 Tablet(s) PO BID as needed 01/31/2016 10/08/2016 Inactive Flonase 50 mcg/actuation nasal spray,suspension RxNorm: 8399497 1 [place] NASAL BID 01/08/2016 01/22/2016 Inactive Flonase 50 mcg/actuation nasal spray,suspension RxNorm: 2820923 1 [place] NASAL BID 01/08/2016 01/07/2016 Inactive 1 spray each nare x 5 days Zithromax Z-Surya 250 mg tablet RxNorm: 988827 Tablet(s) PO 01/08/2016 01/30/2016 Inactive Zyrtec-D 5 mg-120 mg tablet,extended release RxNorm: 1888238 1 Tablet(s) PO BID as needed 01/08/2016 01/30/2016 Inactive Augmentin 875 mg-125 mg tablet RxNorm: 553413 1 Tablet(s) PO BID 10/08/2015 10/17/2015 Inactive Augmentin 875 mg-125 mg tablet RxNorm: 937344 1 Tablet(s) PO BID 10/08/2015 10/07/2015 Inactive prednisone 20 mg tablet RxNorm: 615795 1 Tablet(s) PO BID 08/01/2015 08/05/2015 Inactive prednisone 20 mg tablet RxNorm: 385091 1 Tablet(s) PO BID 08/01/2015 07/31/2015 Inactive Kenalog 40 mg/mL suspension for injection RxNorm: 9760444 Milliliter(s) Inj 07/30/2015 07/30/2015 Inactive Zyrtec-D 5 mg-120 mg tablet,extended release RxNorm: 6565852 1 Tablet(s) PO BID as needed 07/30/2015 01/07/2016 Inactive Augmentin 875 mg-125 mg tablet RxNorm: 351505 1 Tablet(s) PO BID 07/30/2015 08/05/2015 Inactive Kenalog 40 mg/mL suspension for injection RxNorm: 4666537 1 Milliliter(s) Inj 03/22/2015 03/22/2015 Inactive Flonase 50 mcg/actuation Nasal [place] RxNorm: 6430197 1 [place] NASAL 07/12/2012 07/11/2012 Inactive 1 spray each nare x 5 days Flonase 50 mcg/actuation Nasal [place] RxNorm: 6603477 1 [place] NASAL 07/12/2012 07/16/2012 Inactive 1 spray each nare x 5 days cefdinir 300 mg capsule RxNorm: 066588 1 Capsule(s) PO BID 07/12/2012 07/18/2012 Inactive cefdinir 300 mg capsule RxNorm: 446977 1 Capsule(s) PO BID 07/12/2012 07/11/2012 Inactive Tamiflu 75 mg capsule RxNorm: 786693 1 Capsule(s) PO BID 06/20/2012 06/24/2012 Inactive Tamiflu 75 mg capsule RxNorm: 676725 1 Capsule(s) PO BID 06/20/2012 06/19/2012 Inactive Diflucan 150 mg tablet RxNorm: 383633 1 Tablet(s) PO daily 04/21/2012 05/04/2012 Inactive nystatin 100,000 unit/g Topical Cream RxNorm: 946681 1 Application TOP TID 04/13/2012 05/02/2012 Inactive one application to groin tid Diflucan 150 mg tablet RxNorm: 471241 1 Tablet(s) PO daily 04/04/2012 04/06/2012 Inactive nystatin 100,000 unit/g Topical Cream RxNorm: 687731 1 Application TOP TID 04/04/2012 04/03/2012 Inactive one application to groin tid x 10 day nystatin 100,000 unit/g Topical Cream RxNorm: 604922 1 Application TOP TID 04/04/2012 04/12/2012 Inactive one application to groin tid x 10 day Diflucan 150 mg tablet RxNorm: 867825 1 Tablet(s) PO daily 03/23/2012 03/22/2012 Inactive Diflucan 150 mg tablet RxNorm: 383398 1 Tablet(s) PO daily 03/23/2012 03/29/2012 Inactive Rocephin 1 gram Solution for Injection RxNorm: 1296939 Inj 03/18/2012 03/18/2012 Inactive Augmentin 500 mg-125 mg tablet RxNorm: 557534 1 Tablet(s) PO TID 03/11/2012 03/10/2012 Inactive Augmentin 500 mg-125 mg tablet RxNorm: 594059 1 Tablet(s) PO TID 03/11/2012 03/17/2012 Inactive Kenalog 40 mg/mL Susp for Injection RxNorm: 8244352 1 Milliliter(s) Inj 07/02/2011 07/02/2011 Inactive Rocephin 500 mg Solution for Injection RxNorm: 2177791 1 Milliliter(s) Inj 07/02/2011 07/02/2011 Inactive Bactrim DS 800 mg-160 mg Tab RxNorm: 569571 1 Tablet(s) PO BID 06/30/2011 07/09/2011 Inactive multivitamin Oral RxNorm: Oral No Start Date Active omeprazole 40 mg Cap, Delayed Release RxNorm: 725767 1 Capsule(s) PO PRN No Start Date Active Yuridia-D 12 Hour 60 mg-120 mg tablet,extended release RxNorm: 304350 1 Tablet(s) PO BID No Start Date 12/05/2017 Inactive Zithromax 500 mg tablet RxNorm: 479287 2 Tablet(s) PO daily No Start Date 01/30/2016 Inactive Aspirin For Children 81 mg Chewable Tab RxNorm: 272655 1 Tablet(s) PO daily No Start Date 08/07/2018 Inactive Zyrtec-D 5 mg-120 mg 12 hr Tab RxNorm: 5538554 1 Tablet(s) PO daily No Start Date 07/29/2015 Inactive Medication Administered Medication Codes Instructions Start Date Status Kenalog 40 mg/mL suspension for injection RxNorm: 2771037 1Millil[place] 04/05/2017 No longer Active Kenalog 40 mg/mL suspension for injection RxNorm: 4492139 1Milliliter 02/24/2017 No longer Active Kenalog 40 mg/mL suspension for injection RxNorm: 6245739 1Milliliter 09/16/2016 No longer Active Kenalog 40 mg/mL suspension for injection RxNorm: 5044056 [place] 07/30/2015 No longer Active Kenalog 40 mg/mL suspension for injection RxNorm: 5129609 1Milliliter 03/22/2015 No longer Active Rocephin 1 gram Solution for Injection RxNorm: 7715301 03/18/2012 No longer Active Rocephin 500 mg Solution for Injection RxNorm: 2980163 1[place]il[place] 07/02/2011 No longer Active Kenalog 40 mg/mL Susp for Injection RxNorm: 6737127 1Milliliter 07/02/2011 No longer Active Immunizations Vaccine Codes Date Status Tetanus, Diptheria, Pertussis Unknown 05/23/2010 completed Assessments Condition Codes Effective Dates Slow transit constipation ICD-10: K59.01 ICD-9: 564.01 [...] findings ICD-10: Z00.00 ICD-9: V70.0 11/26/2017 Other allergic rhinitis ICD-10: J30.89 ICD-9: 477.8 11/26/2017 Other acute sinusitis ICD-10: J01.80 ICD-9: [...] For Visit Effective Dates Notes abdominal pain 10/06/2018 penile pain and discharge [...] Item Item Code Result Date Comp Metabolic Sqo140 NA 139 mEq/L 03/15/2018 Comp Metabolic Vgc068 K 4.2 mEq/L 03/15/2018 Comp Metabolic Qyx296 CL 101 mEq/L 03/15/2018 Comp Metabolic Vzm629 CO2 32.0 mEq/L 03/15/2018 Comp Metabolic Zno790 ANION GAP 10 03/15/2018 Comp Metabolic Dpe617 GLUCOSE 94 mg/dL 03/15/2018 Comp Metabolic Fzw561 Creat 0.9 mg/dL 03/15/2018 Comp Metabolic Rld011 eGFR 104 ml/min/1.73m2 03/15/2018 Comp Metabolic Mad503 BUN 14 mg/dL 03/15/2018 Comp Metabolic Jcd265 B/C Ratio 16.3 Ratio 03/15/2018 Comp Metabolic Uur361 CALCIUM 9.8 mg/dL 03/15/2018 Comp Metabolic Xhw307 ALK PHOS 75 U/L 03/15/2018 Comp Metabolic Axi365 AST(SGOT) 20 U/L 03/15/2018 Comp Metabolic Ogd194 ALT(SGPT) 30 U/L 03/15/2018 Comp Metabolic Dsk913 BILI T 1.2 mg/dL 03/15/2018 Comp Metabolic Zhz099 ALBUMIN 4.7 g/dL 03/15/2018 Comp Metabolic Fke590 TPRO 7.2 g/dL 03/15/2018 Comp Metabolic Shu832 GLOB 2.5 g/dL 03/15/2018 Comp Metabolic Xfu894 A/G Ratio 1.9 Ratio 03/15/2018 Comp Metabolic Bgz615 Osmo 278 mOsmo 03/15/2018 Urine Culture Ucult [...] if culture needed 01/04/2018 Hepatitis Panel (Abc) 07243 HEPATITIS B SURFACE AG . 12/09/2017 Hepatitis Panel (Abc) 10948 HEPATITIS B SURFACE AG NEGATIVE 12/09/2017 Hepatitis Panel (Abc) 97374 HEPATITIS B CORE AB, IGM . 12/09/2017 Hepatitis Panel (Abc) 10454 HEPATITIS B CORE AB, IGM NEGATIVE 12/09/2017 Hepatitis Panel (Abc) 98190 HEPATITIS A AB, IGM . 12/09/2017 Hepatitis Panel (Abc) 10501 HEPATITIS A AB, IGM NEGATIVE 12/09/2017 Hepatitis Panel (Abc) 48719 HEPATITIS C ANTIBODY . 12/09/2017 Hepatitis Panel (Abc) 97006 HEPATITIS C ANTIBODY NEGATIVE 12/09/2017 Tsh Ord6 TSH (3rd IS) 2.24 uIU/mL 11/29/2017 Comp Metabolic Kph559 NA 138 mEq/L 11/29/2017 Comp Metabolic Yum668 K 4.1 mEq/L 11/29/2017 Comp Metabolic Tpp286 CL 101 mEq/L 11/29/2017 Comp Metabolic Bov612 CO2 30.0 mEq/L 11/29/2017 Comp Metabolic Fdi460 ANION GAP 11 11/29/2017 Comp Metabolic Yvy397 GLUCOSE 89 mg/dL 11/29/2017 Comp Metabolic Xia352 Creat 0.8 mg/dL 11/29/2017 Comp Metabolic Tob671 eGFR 107 ml/min/1.73m2 11/29/2017 Comp Metabolic Int757 BUN 15 mg/dL 11/29/2017 Comp Metabolic Xim876 B/C Ratio 17.9 Ratio 11/29/2017 Comp Metabolic Djg209 CALCIUM 9.4 mg/dL 11/29/2017 Comp Metabolic Jvt787 ALK PHOS 71 U/L 11/29/2017 Comp Metabolic Zbw001 AST(SGOT) 19 U/L 11/29/2017 Comp Metabolic Sta111 ALT(SGPT) 27 U/L 11/29/2017 Comp Metabolic Ouu496 BILI T 1.8 mg/dL 11/29/2017 Comp Metabolic Wpz587 ALBUMIN 4.4 g/dL 11/29/2017 Comp Metabolic Xkf679 TPRO 6.8 g/dL 11/29/2017 Comp Metabolic Dum364 GLOB 2.5 g/dL 11/29/2017 Comp Metabolic Mwb028 A/G Ratio 1.8 Ratio 11/29/2017 Comp Metabolic Txt269 Osmo 276 mOsmo 11/29/2017 Urine Culture Ucult [...] 27.4 pg 11/29/2017 Cbc With Differential Ord2 [place]% 8.3 % 11/29/2017 Cbc With Differential Ord2 [...] 3.16 K/ul 11/29/2017 Cbc With Differential Ord2 [place] ABS# 0.7 K/ul 11/29/2017 Cbc With Differential Ord2 Eos ABS# 0.2 K/ul 11/29/2017 Cbc With Differential Ord2 Baso ABS# 0.0 K/ul 11/29/2017 C RAP A SC 0304259 Strep A Negative 08/20/2016 GC/CHL PRB 4434057 SOURCE CASSAN[place]A UNKNOWN 03/19/2012 GC/CHL PRB 6131484 CHLM PROBE NEG 03/19/2012 GC/CHL PRB 3281434 GC PROBE NEG 03/19/2012 URINALYSIS NONAUTO W/O SCOPE 08424 Specific [place] 1.010 DateTime(Free Text in Aprima) URINALYSIS NONAUTO W/O SCOPE 00469 PH 6.5 DateTime(Free Text in Aprima) URINALYSIS NONAUTO W/O SCOPE 63950 GLUCOSE neg DateTime(Free Text in Aprima) URINALYSIS NONAUTO W/O SCOPE 60736 Protein neg DateTime(Free Text in Aprima) URINALYSIS NONAUTO W/O SCOPE 22026 Blood neg DateTime(Free Text in Aprima) URINALYSIS NONAUTO W/O SCOPE 98654 Bilirubin neg DateTime(Free Text in Aprima) URINALYSIS NONAUTO W/O SCOPE 68392 Ketones neg DateTime(Free Text in Aprima) URINALYSIS NONAUTO W/O SCOPE 94203 Urobilinogen neg DateTime(Free Text in Aprima) URINALYSIS NONAUTO W/O SCOPE 67867 Nitrite neg DateTime(Free Text in Aprima) URINALYSIS NONAUTO W/O SCOPE 25649 Leukocytes neg DateTime(Free Text in Aprima) Review of Systems System Result Effective Dates Constitutional recent illness 10/06/2018 Constitutional No chills [...] clear 02/16/2018 None Full Exam - General 1995 Eyes conjunctiva/eyelids Overall: cornea clear 02/16/2018 None [...] Codes Date URINALYSIS NONAUTO W/O SCOPE CPT-4: 46437 06/28/2018 TRIAMCINOLONE ACET INJ NOS CPT-4: J3301 04/05/2017 TRIAMCINOLONE ACET INJ NOS CPT-4: J3301 02/24/2017 THER/PROPH/DIAG INJ SC/IM CPT-4: 48890 09/16/2016 TRIAMCINOLONE ACET INJ NOS CPT-4: J3301 09/16/2016 TRIAMCINOLONE ACET INJ NOS CPT-4: J3301 07/30/2015 TRIAMCINOLONE ACET INJ NOS CPT-4: J3301 03/22/2015 ROCEPHIN, PER 250 MG CPT- 4: J0696 03/18/2012 URINALYSIS NONAUTO W/O SCOPE CPT-4: 23704 03/17/2012 ROCEPHIN, PER 250 MG CPT- 4: J0696 06/30/2011 TRIAMCINOLONE ACET INJ NOS CPT-4: J3301 06/30/2011 Vital Signs Date Vital 10/06/2018 Height: Weight: 08/08/2018 Blood Pressure 1: 122/80 Code: 8480-6 Heart Rate 1: 84 bpm Height: 6'2" SpO2: 98% 06/28/2018 Blood Pressure 1: 122/82 Code: 8480-6 BMI: 24.0 Code: 49248-8 Heart Rate 1: 91 bpm Height: 6'2" SpO2: 98% Weight: 187 lbs 02/22/2018 Blood Pressure 1: 110/80 Code: 8480-6 Heart Rate 1: 74 bpm Height: 6'2" SpO2: 98% Weight: 02/16/2018 Blood Pressure 1: 130/72 Code: 8480-6 BMI: 24.0 Code: 86248-4 Heart Rate 1: 82 bpm Height: 6'2" SpO2: 97% Weight: 187 lbs 12/20/2017 Blood Pressure 1: 128/88 Code: 8480-6 BMI: 23.1 Code: 13615-4 Heart Rate 1: 86 bpm Height: 6'2" SpO2: 98% Weight: 180 lbs 11/26/2017 Blood Pressure 1: 122/80 Code: 8480-6 BMI: 23.1 Code: 45110-8 Heart Rate 1: 56 bpm Height: 6'2" SpO2: 98% Weight: 180 lbs 07/21/2017 Blood Pressure 1: 120/78 Code: 8480-6 BMI: 21.8 Code: 42018-9 Heart Rate 1: 88 bpm Height: 6'2" SpO2: 97% Weight: 170 lbs 04/05/2017 Blood Pressure 1: 126/68 Code: 8480-6 BMI: 22.6 Code: 11435-5 Heart Rate 1: 80 bpm Height: 6'2" SpO2: 98% Weight: 176 lbs 03/22/2017 Blood Pressure 1: 120/72 Code: 8480-6 BMI: 22.5 Code: 06819-1 Heart Rate 1: 82 bpm Height: 6'2" SpO2: 98% Temperature: 36.8 (C) / 98.3 (F) Weight: 175 lbs 02/24/2017 Blood Pressure 1: 120/62 Code: 8480-6 BMI: 22.5 Code: 01218-8 Heart Rate 1: 84 bpm Height: 6'2" SpO2: 98% Weight: 175 lbs 08/20/2016 Blood Pressure 1: 126/78 Code: 8480-6 BMI: 24.1 Code: 08350-3 Heart Rate 1: 84 bpm Height: 6'2" SpO2: 98% Temperature: 37.1 (C) / 98.8 (F) Weight: 188 lbs 06/10/2016 Blood Pressure 1: 124/62 Code: 8480-6 BMI: 24.4 Code: 53700-1 Heart Rate 1: 85 bpm Height: 6'2" SpO2: 98% Weight: 190 lbs 02/07/2016 Blood Pressure 1: 128/72 Code: 8480-6 BMI: 23.6 Code: 95735-8 Heart Rate 1: 78 bpm Height: 6'2" SpO2: 96% Weight: 184 lbs 01/08/2016 Blood Pressure 1: 108/70 Code: 8480-6 BMI: 23.4 Code: 55347-8 Heart Rate 1: 84 bpm Height: 6'2" SpO2: 96% Weight: 182 lbs 07/30/2015 Blood Pressure 1: 110/64 Code: 8480-6 BMI: 22.6 Code: 28196-6 Heart Rate 1: 78 bpm Height: 6'2" SpO2: 98% Weight: 176 lbs 03/22/2015 Blood Pressure 1: 126/80 Code: 8480-6 BMI: 24.0 Code: 86957-4 Heart Rate 1: 76 bpm Height: 6'2" SpO2: 98% Weight: 187 lbs 06/20/2012 Blood Pressure 1: 110/76 Code: 8480-6 Heart Rate 1: 100 bpm Temperature: 38.7 (C) / 101.7 (F) Weight: 169 lbs 03/18/2012 Blood Pressure 1: 132/70 Code: 8480-6 Heart Rate 1: 80 bpm Weight: 160 lbs 06/30/2011 Blood Pressure 1: 110/72 Code: 8480-6 BMI: 23.9 Code: 76068-0 Heart Rate 1: 72 bpm Height: 6'2" Respiratory Rate: 20 bpm Weight: 186 lbs 03/09/2011 Blood Pressure 1: 96/58 Code: 8480-6 BMI: 23.2 Code: 68782- 5 Heart Rate 1: 80 bpm Height: 6'2" Respiratory Rate: 16 bpm Weight: 183 lbs 01/12/2011 Blood Pressure 1: 126/80 Code: 8480-6 BMI: 23.5 Code: 20481-3 Heart Rate 1: 82 bpm Height: 6'2" Respiratory Rate: 16 bpm Weight: 183 lbs Functional Status No Functional Status data History of Present Illness Symptom Name Status Result Effective Date Notes Location in the RLQ 10/06/2018 None Location [...] 04/05/2017 None rash Location-Head/Neck on the left zoroastrianism 04/05/2017 None rash Location-Head/Neck on the forehead [...] data Encounters Encounter Performer Location Codes Date EST. PATIENT, LEVEL III Diagnosis: Slow transit constipation[ICD10: K59.01] Diagnosis: Right lower quadrant pain[ICD10: R10.31] Cherry Riggs MD, [facility] CPT-4: 87559 10/06/2018 ([id number]) 74918 EST. PATIENT, LEVEL III Diagnosis: Candidiasis of skin and nail[ICD10: B37.2] Gin Riggs MD, [facility] CPT-4: 02568 08/08/2018 ([id number]) 81534 EST. 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 CPT-4: 10480 06/28/2018 ([id number]) 52720 EST. 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 CPT-4: 60664 02/22/2018 04125 EST. PATIENT, LEVEL III Diagnosis: Dysuria[ICD10: R30.0] Cherry Riggs MD, [facility] CPT-4: 84483 02/16/2018 ([id number]) 05968 EST. PATIENT, LEVEL III Diagnosis: Pain in left knee[ICD10: M25.562] Gin Riggs MD, [facility] CPT- 4: 26992 12/20/2017 ([id number]) PREV VISIT EST AGE 40-64 Diagnosis: Encounter for general adult medical examination without abnormal findings[ICD10: Z00.00] Diagnosis: Dysuria[ICD10: R30.0] Diagnosis: Other allergic rhinitis[ICD10: J30.89] Gin Riggs MD, [facility] CPT-4: 97582 11/26/2017 [id number] EST. PATIENT, LEVEL IV Diagnosis: Other acute sinusitis[ICD10: J01.80] Diagnosis: Other allergic rhinitis[ICD10: J30.89] Cherry Riggs MD, [facility] CPT- 4: 10934 07/21/2017 07909 EST. PATIENT, LEVEL IV Diagnosis: Allergic contact dermatitis due to plants, except food[ICD10: L23.7] Cherry Riggs MD, [facility] CPT-4: 18534 04/05/2017 ([id number]) 01464 EST. PATIENT, LEVEL III Diagnosis: Acute recurrent maxillary sinusitis[ICD10: J01.01] Gin Riggs MD [facility] CPT-4: 99725 03/22/2017 [id number] EST. PATIENT, LEVEL IV Diagnosis: Other acute sinusitis[ICD10: J01.80] Diagnosis: Other allergic rhinitis[ICD10: J30.89] Cherry Riggs MD, [facility] CPT- 4: 95969 02/24/2017 ([id number]) 01605 EST. PATIENT, LEVEL III Diagnosis: Acute laryngopharyngitis[ICD10: J06.0] Gin Riggs MD, [facility] CPT-4: 94404 08/20/2016 74410 EST. PATIENT, LEVEL III Diagnosis: Pain in right shoulder[ICD10: M25.511] Cherry Riggs MD, [facility] CPT- 4: 78626 06/10/2016 ([id number]) 17591 EST. PATIENT, LEVEL II Diagnosis: Melanocytic nevi, unspecified[ICD10: D22.9] Gin Riggs MD, [facility] CPT-4: 99647 02/07/2016 17967 EST. PATIENT, LEVEL III Diagnosis: Other acute sinusitis[ICD10: J01.80] Diagnosis: Other allergic rhinitis[ICD10: J30.89] Cherry Riggs MD, [facility] CPT- 4: 59433 01/08/2016 ([id number]) 19371 EST. PATIENT, LEVEL III Diagnosis: Acute recurrent maxillary sinusitis[ICD10: J01.01] Gin Riggs MD [facility] CPT-4: 01927 07/30/2015 ([id number]) PREV VISIT EST AGE 18-39 Diagnosis: Encounter for general adult medical examination without abnormal findings[ICD10: Z00.00] Diagnosis: Allergic rhinitis, unspecified[ICD10: J30.9] Gin Riggs MD, [facility] CPT-4: 91337 03/22/2015 ([id number]) 41510 EST. PATIENT, LEVEL III Diagnosis: Influenza[ICD9: 487.1] Gin Riggs MD, [facility] CPT-4: 04161 06/20/2012 84083 EST. PATIENT, LEVEL II Diagnosis: DYSURIA[ICD9: 788.1] Diagnosis: Screen for sexually transmitted diseases[ICD9: V74.5] Gin Riggs MD, [facility] CPT-4: 33689 03/18/2012 ([id number]) [id number] EST. PATIENT, LEVEL III Diagnosis: ACUTE SINUSITIS[ICD9: 461.9] Gin Riggs MD, [facility] CPT-4: 96744 06/30/2011 [id number] EST. PATIENT, LEVEL IV Diagnosis: ESOPHAGEAL REFLUX[ICD9: 530.81] Diagnosis: Constipation[ICD9: 564.00] Claire Riggs MD, [facility] CPT-4: 35391 03/09/2011 OFFICE VISIT, NEW - LEVEL 3 Diagnosis: Encounter for annual health examination[ICD9: V70.0] Diagnosis: Esophageal reflux[ICD9: 530.81] Claire Riggs MD, [facility] CPT-4: 59859 01/12/2011 Plan of Care Planned Activity Notes Codes Status Date Visit Plan: RLQ pain, Constipation - uncontrolled [...] this regimen. 10/06/2018 [facility]ment[id number] [facility] 10/06/2018 Patient Education: Patient Medication Summary Completed 10/06/2018 Visit Plan: Yeast infection -patient's was positive for yeast infection -will treat patient with diflucan -instructed him to call if symptoms do not resolve and we will re-evaluate or send to urologist for cheryl luation -patient verbalized understanding of plan. 08/08/2018 Appointment: Gin Dooley WPtel: [phone] (30 min) Complex 08/08/2018 Patient Education: Patient Medication Summary Completed 08/08/2018 Visit Plan: Dysuria -irritation -UA negative-recommend patient switch to unscented soap/lotion -monitor symptoms and call if they do no resolve Varicocele -check semen analysis 06/28/2018 Appointment: Gin Dooley WPtel: [phone] (30 min) Complex 06/28/2018 Patient Education: Patient Medication Summary Completed 06/28/2018 Patient Education: Patient Medication Summary Completed 03/15/2018 Visit Plan: Varicocele-grade 3 -discussed with Dr Riggs - start an aspirin daily - discussed anti inflammatories, supportive underwear and to call if symptoms do not resolve or if any worse. Patient verbalized understanding of plan. 02/22/2018 Appointment: Gin Dooley WPtel: [phone] (15 min) Moderate 02/22/2018 Patient Education: [...] Wagoner WPtel: [facility] (15 min) Moderate 02/16/2018 Patient Education: Patient Medication Summary Completed 02/16/2018 Patient Education: Patient Medication Summary Completed 01/03/2018 Visit Plan: Left knee pain -suspect meniscal injury -will xray knee today and then schedule MRI for further evaluation -discussed rest, ice and anti inflammatories as directed 12/20/2017 Appointment: Gin Dooley WPtel: [address] [place], [place] [phone] (15 min) Moderate 12/20/2017 Patient Education: Patient Medication Summary Completed 12/20/2017 Care Plan: X-RAY EXAM OF KNEE 3 [facility] : [id number] Pending 12/20/2017 Visit Plan: Well Adult - [...] not improve. 11/26/2017 Appointment: Gin Dooley WPtel: [phone] (15 min) Moderate 11/26/2017 Patient Education: [...] allergy spray. 07/21/2017 Appointment: Cherry Wagoner WPtel: [facility] (15 min) Moderate 07/21/2017 Patient Education: Patient Medication Summary Completed 07/21/2017 Visit Plan: Poison Ruthy - pt is to use topical treatments as directed. Pt is cleanse clothing in hot water with soap, and call if symptoms do not improve or if they worsen. 04/05/2017 Appointment: Cherry Wagoner WPtel: [address] [place] [address] (10 min) Simple 04/05/2017 Patient Education: Patient [...] allergy spray. 03/22/2017 Appointment: Gin Dooley WPtel: [facility] [place] [id number] [place] [address] (15 min) Moderate 03/22/2017 Patient Education: Patient [...] spray. 02/24/2017 Appointment: [facility] (15 min) Moderate 02/24/2017 Patient Education: Patient [...] for fever/discomfort. 08/20/2016 Appointment: Gin Dooley WPtel: [address] [phone] [place] (10 min) Simple 08/20/2016 Patient Education: Patient [...] for evaluation 02/07/2016 Appointment: [phone] (30 min) Complex 02/07/2016 Patient Education: Patient Medication Summary Completed 02/07/2016 Care Plan: Referral Order SNOMED-CT : [id number] Pending 02/07/2016 Visit Plan: Sinusitis - Pt [...] the office 03/22/2015 Appointment: [phone] [phone] [facility] 03/22/2015 Patient Education: Patient Medication Summary Completed [...] Gin Dooley WPtel: [facility] [place] [address] Sick 06/20/2012 Patient Education: Patient Medication Summary [...] of testing. 03/18/2012 Appointment: Gin Dooley WPtel: [facility] [place] [address] Other 03/18/2012 Patient Education: Patient Medication Summary Completed 03/18/2012 Appointment: Claire Riggs WPtel: [facility] Lab Draw 03/17/2012 Patient Education: Patient [...] not resolve. 06/30/2011 Appointment: Gin Dooley WPtel: [address] [place], [place] [id number] [place] [address] Other 06/30/2011 Patient Education: Patient Medication Summary [...] Claire Riggs WPtel: [facility]66[facility] Other 03/09/2011 Patient Education: Patient Medication Summary [...] program. 01/12/2011 App[facility]ment: [phone] [facility] 01/12/2011 Patient Education: Patient Medication Summary Completed 01/12/2011 Referral: Maranda Greene WPtel: Referral Appointment Requested Instructions Comment . RLQ pain, Constipation - uncontrolled - [...] Kenalog injection today in the office . Poison Ruthy - pt is to use topical treatments as directed. Pt is cleanse clothing in hot water with soap, and call if symptoms do not improve or if they worsen. . Yeast infection -patient's was positive for [...] in the nasal steroid allergy spray. . Dysuria-UA negative-gc and chlamydia probe today in the office- Emperic treatment for both STI's today as well-discussed natural and expected course of this diagnosis and to alert me if symptoms do not follow expected course, or if any worse. RX sent to patient's pharmacy and rocephin injection today in the office. We will call patient with results of testing. xray left knee aleve 2 pills twice [...] and to start an exercise program. . Pharyngitis-Discussed natural and expected course of [...]
--- OUTSIDE RECORDS SUMMARY | 2018-11-22 07:04 | XMS REPORT | CCD ---
Author Author [facility] Organization [facility] Address [address] [place] [address] Phone Care Team Providers Care Cad Engineer Name Role Phone Claire Riggs PP Unavailable CCM Unavailable Summary Purpose Interface Exchange Insurance Providers Payer name Policy type / Coverage type Covered republican ID Effective Begin Date Effective End Date Blue Cross Blue [facility] Blue Cross/Blue [facility] [id number] Unknown Family history Mother Diagnosis Age At Onset Cancer Unknown Brother Diagnosis Age At Onset No Family Disease Entered N/A Grandmother Diagnosis Age At Onset Cancer Unknown Father Diagnosis Age At Onset No Family Disease Entered N/A Social History Social History Element Codes Description Effective Dates Marital status Unknown 01/12/2011 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 Unknown Has never used illegal drugs 01/12/2011 Allergies, Adverse Reactions, Alerts Substance Reaction Codes Entered Date Inactivated Date Status * NO KNOWN FOOD ALLERGIES Unknown 01/12/2011 No Inactive Date Active bactrim RxNorm: 166805 03/22/2015 No Inactive Date Active Past Medical [...] Hour 60 mg-120 mg tablet,extended release RxNorm: 443467 1 Tablet(s) PO BID 09/07/2018 No Stop Date Active fluconazole 150 mg tablet RxNorm: 785402 1 Tablet(s) PO daily 08/08/2018 08/14/2018 Inactive omeprazole 20 mg capsule,delayed release RxNorm: 922989 1 Capsule(s) PO daily 06/28/2018 10/25/2018 Active Flonase 50 mcg/actuation nasal spray,suspension RxNorm: 7575484 1 [place] NASAL BID 06/22/2018 No Stop Date Active Zyrtec-D 5 mg-120 mg tablet,extended release RxNorm: 5396111 1 Tablet(s) PO BID as needed 06/22/2018 No Stop Date Active Augmentin 875 mg-125 mg tablet RxNorm: 048304 1 Tablet(s) PO BID 06/02/2018 06/08/2018 Inactive Zithromax Z-Surya 250 mg tablet RxNorm: 293297 1 Tablet(s) PO UD 03/24/2018 06/01/2018 Inactive Flonase 50 mcg/actuation nasal spray,suspension RxNorm: 4396106 1 [place] NASAL BID 03/01/2018 06/21/2018 Inactive Cipro 500 mg tablet RxNorm: 117914 1 Tablet(s) PO BID 02/16/2018 02/25/2018 Inactive Diflucan 150 mg tablet RxNorm: 505895 1 Tablet(s) PO daily start after cipro is finished 02/16/2018 02/22/2018 Inactive Augmentin 875 mg-125 mg tablet RxNorm: 298883 1 Tablet(s) PO BID 12/24/2017 12/23/2017 Inactive Augmentin 875 mg-125 mg tablet RxNorm: 543858 1 Tablet(s) PO BID 12/24/2017 12/30/2017 Inactive Keflex 500 mg capsule RxNorm: 785691 1 Capsule(s) PO TID 12/08/2017 12/14/2017 Inactive Yuridia-D 12 Hour 60 mg-120 mg tablet,extended release RxNorm: 164863 1 Tablet(s) PO BID 12/06/2017 09/06/2018 Inactive Keflex 500 mg capsule RxNorm: 044132 1 Capsule(s) PO TID 11/26/2017 12/02/2017 Inactive Flonase 50 mcg/actuation nasal spray,suspension RxNorm: 2284337 1 [place] NASAL BID 11/15/2017 02/28/2018 Inactive Yuridia Allergy 180 mg tablet RxNorm: 459980 1 Tablet(s) PO daily 10/27/2017 10/27/2017 Inactive Zyrtec-D 5 mg-120 mg tablet,extended release RxNorm: 2719320 1 Tablet(s) PO BID as needed 10/20/2017 06/21/2018 Inactive Yuridia Allergy 180 mg tablet RxNorm: 354577 1 Tablet(s) PO daily 09/21/2017 10/20/2017 Inactive Augmentin 500 mg-125 mg tablet RxNorm: 226009 1 Tablet(s) PO TID 07/21/2017 07/30/2017 Inactive Yuridia Allergy 180 mg tablet RxNorm: 464670 1 Tablet(s) PO daily 07/21/2017 08/19/2017 Inactive Zyrtec-D 5 mg-120 mg tablet,extended release RxNorm: 5359204 1 Tablet(s) PO BID as needed 06/15/2017 10/19/2017 Inactive Zyrtec-D 5 mg-120 mg tablet,extended release RxNorm: 3927518 1 Tablet(s) PO BID as needed 05/11/2017 02/21/2018 Inactive prednisone 10 mg tablet RxNorm: 976913 Tablet(s) PO 04/05/2017 12/07/2017 Inactive 6,5,4,3,2,1 Kenalog 40 mg/mL suspension for injection RxNorm: 5225047 1 Milliliter(s) Inj 04/05/2017 04/05/2017 Inactive Flonase 50 mcg/actuation nasal spray,suspension RxNorm: 1847829 1 [place] NASAL BID 04/01/2017 11/14/2017 Inactive Augmentin 875 mg-125 mg tablet RxNorm: 953489 1 Tablet(s) PO BID 03/22/2017 03/28/2017 Inactive prednisone 20 mg tablet RxNorm: 391838 2 Tablet(s) PO daily 03/02/2017 03/06/2017 Inactive prednisone 20 mg tablet RxNorm: 136708 2 Tablet(s) PO daily 03/02/2017 03/01/2017 Inactive Zithromax Z-Surya 250 mg tablet RxNorm: 105809 1 Tablet(s) PO UD 02/24/2017 03/21/2017 Inactive Kenalog 40 mg/mL suspension for injection RxNorm: 7379870 1 Milliliter(s) Inj 02/24/2017 02/24/2017 Inactive Zyrtec-D 5 mg-120 mg tablet,extended release RxNorm: 1510514 1 Tablet(s) PO BID as needed 02/05/2017 05/10/2017 Inactive Zyrtec-D 5 mg-120 mg tablet,extended release RxNorm: 5535842 1 Tablet(s) PO BID as needed 12/01/2016 02/04/2017 Inactive Zyrtec-D 5 mg-120 mg tablet,extended release RxNorm: 2469795 1 Tablet(s) PO BID as needed 11/03/2016 11/30/2016 Inactive Zyrtec-D 5 mg-120 mg tablet,extended release RxNorm: 6501734 1 Tablet(s) PO BID as needed 10/09/2016 11/02/2016 Inactive Kenalog 40 mg/mL suspension for injection RxNorm: 9883987 1 Milliliter(s) Inj 09/16/2016 09/16/2016 Inactive Levaquin 500 mg tablet RxNorm: 487686 1 Tablet(s) PO daily 09/15/2016 09/24/2016 Inactive Levaquin 500 mg tablet RxNorm: 231899 1 Tablet(s) PO daily 09/15/2016 09/14/2016 Inactive prednisone 20 mg tablet RxNorm: 459886 1 Tablet(s) PO BID 09/15/2016 09/19/2016 Inactive amoxicillin 500 mg tablet RxNorm: 490062 1 Tablet(s) PO BID 08/20/2016 08/29/2016 Inactive Augmentin 875 mg-125 mg tablet RxNorm: 847597 1 Tablet(s) PO BID 04/23/2016 04/28/2016 Inactive Zyrtec-D 5 mg-120 mg tablet,extended release RxNorm: 9608644 1 Tablet(s) PO BID as needed 01/31/2016 10/08/2016 Inactive Flonase 50 mcg/actuation nasal spray,suspension RxNorm: 9223629 1 [place] NASAL BID 01/08/2016 01/22/2016 Inactive Flonase 50 mcg/actuation nasal spray,suspension RxNorm: 5540575 1 [place] NASAL BID 01/08/2016 01/07/2016 Inactive 1 spray each nare x 5 days Zithromax Z-Surya 250 mg tablet RxNorm: 004633 Tablet(s) PO 01/08/2016 01/30/2016 Inactive Zyrtec-D 5 mg-120 mg tablet,extended release RxNorm: 0143068 1 Tablet(s) PO BID as needed 01/08/2016 01/30/2016 Inactive Augmentin 875 mg-125 mg tablet RxNorm: 770172 1 Tablet(s) PO BID 10/08/2015 10/17/2015 Inactive Augmentin 875 mg-125 mg tablet RxNorm: 268903 1 Tablet(s) PO BID 10/08/2015 10/07/2015 Inactive prednisone 20 mg tablet RxNorm: 013557 1 Tablet(s) PO BID 08/01/2015 08/05/2015 Inactive prednisone 20 mg tablet RxNorm: 988858 1 Tablet(s) PO BID 08/01/2015 07/31/2015 Inactive Kenalog 40 mg/mL suspension for injection RxNorm: 1115708 Milliliter(s) Inj 07/30/2015 07/30/2015 Inactive Zyrtec-D 5 mg-120 mg tablet,extended release RxNorm: 6749140 1 Tablet(s) PO BID as needed 07/30/2015 01/07/2016 Inactive Augmentin 875 mg-125 mg tablet RxNorm: 114036 1 Tablet(s) PO BID 07/30/2015 08/05/2015 Inactive Kenalog 40 mg/mL suspension for injection RxNorm: 1115592 1 Milliliter(s) Inj 03/22/2015 03/22/2015 Inactive Flonase 50 mcg/actuation Nasal [place] RxNorm: 3286063 1 [place] NASAL 07/12/2012 07/11/2012 Inactive 1 spray each nare x 5 days Flonase 50 mcg/actuation Nasal [place] RxNorm: 6225949 1 [place] NASAL 07/12/2012 07/16/2012 Inactive 1 spray each nare x 5 days cefdinir 300 mg capsule RxNorm: 327252 1 Capsule(s) PO BID 07/12/2012 07/18/2012 Inactive cefdinir 300 mg capsule RxNorm: 348795 1 Capsule(s) PO BID 07/12/2012 07/11/2012 Inactive Tamiflu 75 mg capsule RxNorm: 349491 1 Capsule(s) PO BID 06/20/2012 06/24/2012 Inactive Tamiflu 75 mg capsule RxNorm: 428818 1 Capsule(s) PO BID 06/20/2012 06/19/2012 Inactive Diflucan 150 mg tablet RxNorm: 764817 1 Tablet(s) PO daily 04/21/2012 05/04/2012 Inactive nystatin 100,000 unit/g Topical Cream RxNorm: 704595 1 Application TOP TID 04/13/2012 05/02/2012 Inactive one application to groin tid Diflucan 150 mg tablet RxNorm: 008693 1 Tablet(s) PO daily 04/04/2012 04/06/2012 Inactive nystatin 100,000 unit/g Topical Cream RxNorm: 291831 1 Application TOP TID 04/04/2012 04/03/2012 Inactive one application to groin tid x 10 day nystatin 100,000 unit/g Topical Cream RxNorm: 587732 1 Application TOP TID 04/04/2012 04/12/2012 Inactive one application to groin tid x 10 day Diflucan 150 mg tablet RxNorm: 542683 1 Tablet(s) PO daily 03/23/2012 03/22/2012 Inactive Diflucan 150 mg tablet RxNorm: 253787 1 Tablet(s) PO daily 03/23/2012 03/29/2012 Inactive Rocephin 1 gram Solution for Injection RxNorm: 8006717 Inj 03/18/2012 03/18/2012 Inactive Augmentin 500 mg-125 mg tablet RxNorm: 825135 1 Tablet(s) PO TID 03/11/2012 03/10/2012 Inactive Augmentin 500 mg-125 mg tablet RxNorm: 179423 1 Tablet(s) PO TID 03/11/2012 03/17/2012 Inactive Kenalog 40 mg/mL Susp for Injection RxNorm: 9996200 1 Milliliter(s) Inj 07/02/2011 07/02/2011 Inactive Rocephin 500 mg Solution for Injection RxNorm: 6639056 1 Milliliter(s) Inj 07/02/2011 07/02/2011 Inactive Bactrim DS 800 mg-160 mg Tab RxNorm: 978485 1 Tablet(s) PO BID 06/30/2011 07/09/2011 Inactive multivitamin Oral RxNorm: Oral No Start Date Active omeprazole 40 mg Cap, Delayed Release RxNorm: 541197 1 Capsule(s) PO PRN No Start Date Active Yuridia-D 12 Hour 60 mg-120 mg tablet,extended release RxNorm: 538762 1 Tablet(s) PO BID No Start Date 12/05/2017 Inactive Zithromax 500 mg tablet RxNorm: 404108 2 Tablet(s) PO daily No Start Date 01/30/2016 Inactive Aspirin For Children 81 mg Chewable Tab RxNorm: 986714 1 Tablet(s) PO daily No Start Date 08/07/2018 Inactive Zyrtec-D 5 mg-120 mg 12 hr Tab RxNorm: 7496187 1 Tablet(s) PO daily No Start Date 07/29/2015 Inactive Medication Administered Medication Codes Instructions Start Date Status Kenalog 40 mg/mL suspension for injection RxNorm: 6116754 1Millil[place] 04/05/2017 No longer Active Kenalog 40 mg/mL suspension for injection RxNorm: 0260553 1[place]il[place] 02/24/2017 No longer Active Kenalog 40 mg/mL suspension for injection RxNorm: 7006424 1[place]il[place] 09/16/2016 No longer Active Kenalog 40 mg/mL suspension for injection RxNorm: 2899805 [place] 07/30/2015 No longer Active Kenalog 40 mg/mL suspension for injection RxNorm: 2863947 1Millil[place] 03/22/2015 No longer Active Rocephin 1 gram Solution for Injection RxNorm: 3161779 03/18/2012 No longer Active Rocephin 500 mg Solution for Injection RxNorm: 8875022 1[place]il[place] 07/02/2011 No longer Active Kenalog 40 mg/mL Susp for Injection RxNorm: 4375160 1Milliliter 07/02/2011 No longer Active Immunizations Vaccine [...] Item Item Code Result Date Comp Metabolic Dhx696 NA 139 mEq/L 03/15/2018 Comp Metabolic Pun743 K 4.2 mEq/L 03/15/2018 Comp Metabolic Kzo466 CL 101 mEq/L 03/15/2018 Comp Metabolic Bki652 CO2 32.0 mEq/L 03/15/2018 Comp Metabolic Hza696 ANION GAP 10 03/15/2018 Comp Metabolic Cuh700 GLUCOSE 94 mg/dL 03/15/2018 Comp Metabolic Sil735 Creat 0.9 mg/dL 03/15/2018 Comp Metabolic Kru303 eGFR 104 ml/min/1.73m2 03/15/2018 Comp Metabolic Oyq764 BUN 14 mg/dL 03/15/2018 Comp Metabolic Eie201 B/C Ratio 16.3 Ratio 03/15/2018 Comp Metabolic Rly521 CALCIUM 9.8 mg/dL 03/15/2018 Comp Metabolic Oob597 ALK PHOS 75 U/L 03/15/2018 Comp Metabolic Snp554 AST(SGOT) 20 U/L 03/15/2018 Comp Metabolic Rnw582 ALT(SGPT) 30 U/L 03/15/2018 Comp Metabolic Ypn927 BILI T 1.2 mg/dL 03/15/2018 Comp Metabolic Ntu274 ALBUMIN 4.7 g/dL 03/15/2018 Comp Metabolic Zwk552 TPRO 7.2 g/dL 03/15/2018 Comp Metabolic Gcd127 GLOB 2.5 g/dL 03/15/2018 Comp Metabolic Ptr109 A/G Ratio 1.9 Ratio 03/15/2018 Comp Metabolic Shh181 Osmo 278 mOsmo 03/15/2018 Urine Culture Ucult [...] if culture needed 01/04/2018 Hepatitis Panel (Abc) 66634 HEPATITIS B SURFACE AG . 12/09/2017 Hepatitis Panel (Abc) 72184 HEPATITIS B SURFACE AG NEGATIVE 12/09/2017 Hepatitis Panel (Abc) 58109 HEPATITIS B CORE AB, IGM . 12/09/2017 Hepatitis Panel (Abc) 20520 HEPATITIS B CORE AB, IGM NEGATIVE 12/09/2017 Hepatitis Panel (Abc) 79928 HEPATITIS A AB, IGM . 12/09/2017 Hepatitis Panel (Abc) 17859 HEPATITIS A AB, IGM NEGATIVE 12/09/2017 Hepatitis Panel (Abc) 83378 HEPATITIS C ANTIBODY . 12/09/2017 Hepatitis Panel (Abc) 50651 HEPATITIS C ANTIBODY NEGATIVE 12/09/2017 Tsh Ord6 TSH (3rd IS) 2.24 uIU/mL 11/29/2017 Comp Metabolic Ylx001 NA 138 mEq/L 11/29/2017 Comp Metabolic Zjh870 K 4.1 mEq/L 11/29/2017 Comp Metabolic Zqz438 CL 101 mEq/L 11/29/2017 Comp Metabolic Jir881 CO2 30.0 mEq/L 11/29/2017 Comp Metabolic Bmw542 ANION GAP 11 11/29/2017 Comp Metabolic Wgt617 GLUCOSE 89 mg/dL 11/29/2017 Comp Metabolic Xey332 Creat 0.8 mg/dL 11/29/2017 Comp Metabolic Toc406 eGFR 107 ml/min/1.73m2 11/29/2017 Comp Metabolic Vnn798 BUN 15 mg/dL 11/29/2017 Comp Metabolic Okc355 B/C Ratio 17.9 Ratio 11/29/2017 Comp Metabolic Ctx094 CALCIUM 9.4 mg/dL 11/29/2017 Comp Metabolic Aux910 ALK PHOS 71 U/L 11/29/2017 Comp Metabolic Ykz978 AST(SGOT) 19 U/L 11/29/2017 Comp Metabolic Sbm072 ALT(SGPT) 27 U/L 11/29/2017 Comp Metabolic Crs384 BILI T 1.8 mg/dL 11/29/2017 Comp Metabolic Qkj625 ALBUMIN 4.4 g/dL 11/29/2017 Comp Metabolic Vgm937 TPRO 6.8 g/dL 11/29/2017 Comp Metabolic Gli905 GLOB 2.5 g/dL 11/29/2017 Comp Metabolic Syv832 A/G Ratio 1.8 Ratio 11/29/2017 Comp Metabolic Vzp447 Osmo 276 mOsmo 11/29/2017 Urine Culture Ucult [...] 27.4 pg 11/29/2017 Cbc With Differential Ord2 [place]% 8.3 % 11/29/2017 Cbc With Differential Ord2 [...] 3.16 K/ul 11/29/2017 Cbc With Differential Ord2 [place] ABS# 0.7 K/ul 11/29/2017 Cbc With Differential Ord2 Eos ABS# 0.2 K/ul 11/29/2017 Cbc With Differential Ord2 Baso ABS# 0.0 K/ul 11/29/2017 C RAP A SC [id number] Strep A Negative 08/20/2016 GC/CHL PRB 2790383 SOURCE CASSANDRA UNKNOWN 03/19/2012 GC/CHL PRB 4557913 CHLM PROBE NEG 03/19/2012 GC/CHL PRB 0091347 GC PROBE NEG 03/19/2012 URINALYSIS NONAUTO W/O SCOPE 76325 Specific [place] 1.010 DateTime(Free Text in Aprima) URINALYSIS NONAUTO W/O SCOPE 72987 PH 6.5 DateTime(Free Text in Aprima) URINALYSIS NONAUTO W/O SCOPE 86769 GLUCOSE neg DateTime(Free Text in Aprima) URINALYSIS NONAUTO W/O SCOPE 65791 Protein neg DateTime(Free Text in Aprima) URINALYSIS NONAUTO W/O SCOPE 88114 Blood neg DateTime(Free Text in Aprima) URINALYSIS NONAUTO W/O SCOPE 58376 Bilirubin neg DateTime(Free Text in Aprima) URINALYSIS NONAUTO W/O SCOPE 49904 Ketones neg DateTime(Free Text in Aprima) URINALYSIS NONAUTO W/O SCOPE 94057 Urobilinogen neg DateTime(Free Text in Aprima) URINALYSIS NONAUTO W/O SCOPE 54770 Nitrite neg DateTime(Free Text in Aprima) URINALYSIS NONAUTO W/O SCOPE 11043 Leukocytes neg DateTime(Free Text in Aprima) Review [...] Codes Date URINALYSIS NONAUTO W/O SCOPE CPT-4: 81050 06/28/2018 TRIAMCINOLONE ACET INJ NOS CPT-4: J3301 04/05/2017 TRIAMCINOLONE ACET INJ NOS CPT-4: J3301 02/24/2017 THER/PROPH/DIAG INJ SC/IM CPT-4: 59214 09/16/2016 TRIAMCINOLONE ACET INJ NOS CPT-4: J3301 09/16/2016 TRIAMCINOLONE ACET INJ NOS CPT-4: J3301 07/30/2015 TRIAMCINOLONE ACET INJ NOS CPT-4: J3301 03/22/2015 ROCEPHIN, PER 250 MG CPT- 4: J0696 03/18/2012 URINALYSIS NONAUTO W/O SCOPE CPT-4: 53095 03/17/2012 ROCEPHIN, PER 250 MG CPT- 4: J0696 06/30/2011 TRIAMCINOLONE ACET INJ NOS CPT-4: J3301 06/30/2011 Vital Signs Date Vital 10/06/2018 Height: Weight: 08/08/2018 Blood Pressure 1: 122/80 Code: 8480-6 Heart Rate 1: 84 bpm Height: 6'2" SpO2: 98% 06/28/2018 Blood Pressure 1: 122/82 Code: 8480-6 BMI: 24.0 Code: 35762-3 Heart Rate 1: 91 bpm Height: 6'2" SpO2: 98% Weight: 187 lbs 02/22/2018 Blood Pressure 1: 110/80 Code: 8480-6 Heart Rate 1: 74 bpm Height: 6'2" SpO2: 98% Weight: 02/16/2018 Blood Pressure 1: 130/72 Code: 8480-6 BMI: 24.0 Code: 37817-5 Heart Rate 1: 82 bpm Height: 6'2" SpO2: 97% Weight: 187 lbs 12/20/2017 Blood Pressure 1: 128/88 Code: 8480-6 BMI: 23.1 Code: 03932-0 Heart Rate 1: 86 bpm Height: 6'2" SpO2: 98% Weight: 180 lbs 11/26/2017 Blood Pressure 1: 122/80 Code: 8480-6 BMI: 23.1 Code: 62079-8 Heart Rate 1: 56 bpm Height: 6'2" SpO2: 98% Weight: 180 lbs 07/21/2017 Blood Pressure 1: 120/78 Code: 8480-6 BMI: 21.8 Code: 73015-3 Heart Rate 1: 88 bpm Height: 6'2" SpO2: 97% Weight: 170 lbs 04/05/2017 Blood Pressure 1: 126/68 Code: 8480-6 BMI: 22.6 Code: 31003-1 Heart Rate 1: 80 bpm Height: 6'2" SpO2: 98% Weight: 176 lbs 03/22/2017 Blood Pressure 1: 120/72 Code: 8480-6 BMI: 22.5 Code: 22834-5 Heart Rate 1: 82 bpm Height: 6'2" SpO2: 98% Temperature: 36.8 (C) / 98.3 (F) Weight: 175 lbs 02/24/2017 Blood Pressure 1: 120/62 Code: 8480-6 BMI: 22.5 Code: 56605-2 Heart Rate 1: 84 bpm Height: 6'2" SpO2: 98% Weight: 175 lbs 08/20/2016 Blood Pressure 1: 126/78 Code: 8480-6 BMI: 24.1 Code: 20723-2 Heart Rate 1: 84 bpm Height: 6'2" SpO2: 98% Temperature: 37.1 (C) / 98.8 (F) Weight: 188 lbs 06/10/2016 Blood Pressure 1: 124/62 Code: 8480-6 BMI: 24.4 Code: 50070-6 Heart Rate 1: 85 bpm Height: 6'2" SpO2: 98% Weight: 190 lbs 02/07/2016 Blood Pressure 1: 128/72 Code: 8480-6 BMI: 23.6 Code: 88946-9 Heart Rate 1: 78 bpm Height: 6'2" SpO2: 96% Weight: 184 lbs 01/08/2016 Blood Pressure 1: 108/70 Code: 8480-6 BMI: 23.4 Code: 20937-5 Heart Rate 1: 84 bpm Height: 6'2" SpO2: 96% Weight: 182 lbs 07/30/2015 Blood Pressure 1: 110/64 Code: 8480-6 BMI: 22.6 Code: 67710-0 Heart Rate 1: 78 bpm Height: 6'2" SpO2: 98% Weight: 176 lbs 03/22/2015 Blood Pressure 1: 126/80 Code: 8480-6 BMI: 24.0 Code: 63227-3 Heart Rate 1: 76 bpm Height: 6'2" SpO2: 98% Weight: 187 lbs 06/20/2012 Blood Pressure 1: 110/76 Code: 8480-6 Heart Rate 1: 100 bpm Temperature: 38.7 (C) / 101.7 (F) Weight: 169 lbs 03/18/2012 Blood Pressure 1: 132/70 Code: 8480-6 Heart Rate 1: 80 bpm Weight: 160 lbs 06/30/2011 Blood Pressure 1: 110/72 Code: 8480-6 BMI: 23.9 Code: 85539-2 Heart Rate 1: 72 bpm Height: 6'2" Respiratory Rate: 20 bpm Weight: 186 lbs 03/09/2011 Blood Pressure 1: 96/58 Code: 8480-6 BMI: 23.2 Code: 17969- 5 Heart Rate 1: 80 bpm Height: 6'2" Respiratory Rate: 16 bpm Weight: 183 lbs 01/12/2011 Blood Pressure 1: 126/80 Code: 8480-6 BMI: 23.5 Code: 17858-3 Heart Rate 1: 82 bpm Height: 6'2" [...] 04/05/2017 None rash Location-Head/Neck on the left hinduism 04/05/2017 None rash Location-Head/Neck on the forehead [...] lower quadrant pain[ICD10: R10.31] Cherry Riggs MD, [facility] CPT-4: 67394 10/06/2018 ([id number]) 02764 EST. PATIENT, LEVEL III Diagnosis: Candidiasis of skin and nail[ICD10: B37.2] Gin Riggs MD, [facility] CPT-4: 61279 08/08/2018 ([id number]) 96801 EST. 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 PATIENT, LEVEL III Diagnosis: Dysuria[ICD10: R30.0] Cherry Riggs MD, [facility] CPT-4: 34596 02/16/2018 ([id number]) 49272 EST. PATIENT, LEVEL III Diagnosis: Pain in left knee[ICD10: M25.562] Gin Riggs MD, [facility] CPT- 4: 87828 12/20/2017 ([id number]) PREV VISIT EST AGE 40-64 Diagnosis: Encounter for general adult medical examination without abnormal findings[ICD10: Z00.00] Diagnosis: Dysuria[ICD10: R30.0] Diagnosis: Other allergic rhinitis[ICD10: J30.89] Gin Riggs MD, [facility] CPT-4: 07192 11/26/2017 [id number] EST. PATIENT, LEVEL IV Diagnosis: Other acute sinusitis[ICD10: J01.80] Diagnosis: Other allergic rhinitis[ICD10: J30.89] Cherry Riggs MD, [facility] CPT- 4: 08045 07/21/2017 [id number] EST. PATIENT, LEVEL IV Diagnosis: Allergic contact dermatitis due to plants, except food[ICD10: L23.7] Cherry Riggs MD, [facility] CPT-4: 72379 04/05/2017 ([id number]) 75873 EST. PATIENT, LEVEL III Diagnosis: Acute recurrent maxillary sinusitis[ICD10: J01.01] Gin Riggs MD [facility] CPT-4: 36436 03/22/2017 82221 EST. PATIENT, LEVEL IV Diagnosis: Other acute sinusitis[ICD10: J01.80] Diagnosis: Other allergic rhinitis[ICD10: J30.89] Cherry Riggs MD, [facility] CPT- 4: 48918 02/24/2017 ([id number]) 18772 EST. PATIENT, LEVEL III Diagnosis: Acute laryngopharyngitis[ICD10: J06.0] Gin Riggs MD, [facility] CPT-4: 23784 08/20/2016 00043 EST. PATIENT, LEVEL III Diagnosis: Pain in right shoulder[ICD10: M25.511] Cherry Riggs MD, [facility] CPT- 4: 81647 06/10/2016 ([id number]) 68541 EST. PATIENT, LEVEL II Diagnosis: Melanocytic nevi, unspecified[ICD10: D22.9] Gin Riggs MD, [facility] CPT-4: 85609 02/07/2016 91187 EST. PATIENT, LEVEL III Diagnosis: Other acute sinusitis[ICD10: J01.80] Diagnosis: Other allergic rhinitis[ICD10: J30.89] Cherry Riggs MD, [facility] CPT- 4: 81949 01/08/2016 ([id number]) 99815 EST. PATIENT, LEVEL III Diagnosis: Acute recurrent maxillary sinusitis[ICD10: J01.01] Gin Riggs MD [facility] CPT-4: 31294 07/30/2015 ([id number]) PREV VISIT EST AGE 18-39 Diagnosis: Encounter for general adult medical examination without abnormal findings[ICD10: Z00.00] Diagnosis: Allergic rhinitis, unspecified[ICD10: J30.9] Gin Riggs MD, [facility] CPT-4: 24340 03/22/2015 ([id number]) 61104 EST. PATIENT, LEVEL III Diagnosis: Influenza[ICD9: 487.1] Gin Riggs MD, [facility] CPT-4: 64511 06/20/2012 [id number] EST. PATIENT, LEVEL II Diagnosis: DYSURIA[ICD9: 788.1] Diagnosis: Screen for sexually transmitted diseases[ICD9: V74.5] Gin Riggs MD, [facility] CPT-4: 13813 03/18/2012 ([id number]) 55384 EST. PATIENT, LEVEL III Diagnosis: ACUTE SINUSITIS[ICD9: 461.9] Gin Riggs MD, [facility] CPT-4: 38221 06/30/2011 [id number] EST. PATIENT, LEVEL IV Diagnosis: ESOPHAGEAL REFLUX[ICD9: 530.81] Diagnosis: Constipation[ICD9: 564.00] Claire Riggs MD, [facility] CPT-4: 03185 03/09/2011 OFFICE VISIT, NEW - LEVEL 3 Diagnosis: Encounter for annual health examination[ICD9: V70.0] Diagnosis: Esophageal reflux[ICD9: 530.81] Claire Riggs MD, [facility] CPT-4: 65689 01/12/2011 Plan of Care Planned Activity Notes [...] regimen. 10/06/2018 Appointment: [phone] [facility] [phone] ([facility] min) Complex 10/06/2018 Patient Education: Patient Medication Summary Completed 10/06/2018 Visit Plan: Yeast infection -patient's was positive for yeast infection -will treat patient with diflucan -instructed him to call if symptoms do not resolve and we will re-evaluate or send to urologist for cheryl luation -patient verbalized understanding of plan. 08/08/2018 Appointment: Gin Dooley WPtel: [phone] (30 min) Complex 08/08/2018 Patient Education: Patient Medication Summary Completed 08/08/2018 Visit Plan: Dysuria -irritation -UA negative-recommend patient switch to unscented soap/lotion -monitor symptoms and call if they do no resolve Varicocele -check semen analysis 06/28/2018 Appointment: Gin Dooley WPtel: [phone] (30 min) Complex 06/28/2018 Patient Education: Patient Medication Summary Completed 06/28/2018 Patient Education: Patient Medication Summary Completed 03/15/2018 Visit Plan: Varicocele-grade 3 -discussed with Dr Riggs - start an aspirin daily - discussed anti inflammatories, supportive underwear and to call if symptoms do not resolve or if any worse. Patient verbalized understanding of plan. 02/22/2018 Appointment: Gin Dooley WPtel: [phone] (15 min) Moderate 02/22/2018 Patient Education: [...] to urology 02/16/2018 Appointment: Cherry Wagoner WPtel: [id number] (15 min) Moderate 02/16/2018 Patient Education: Patient Medication Summary Completed 02/16/2018 Patient Education: Patient Medication Summary Completed 01/03/2018 Visit Plan: Left knee pain -suspect meniscal injury -will xray knee today and then schedule MRI for further evaluation -discussed rest, ice and anti inflammatories as directed 12/20/2017 Appointment: Gin Dooley WPtel: [address] [place], [place] [phone] (15 min) Moderate 12/20/2017 Patient Education: Patient Medication Summary Completed 12/20/2017 Care Plan: X-RAY EXAM OF KNEE [facility] : 47011-2 Pending 12/20/2017 Visit Plan: Well Adult - [...] not improve. 11/26/2017 Appointment: Gin Dooley WPtel: [facility]5 [phone] (15 min) Moderate 11/26/2017 Patient Education: [...] allergy spray. 07/21/2017 Appointment: Cherry Wagoner WPtel: [facility] (15 min) Moderate 07/21/2017 Patient Education: Patient Medication Summary Completed 07/21/2017 Visit Plan: Poison Ruthy - pt is to use topical treatments as directed. Pt is cleanse clothing in hot water with soap, and call if symptoms do not improve or if they worsen. 04/05/2017 Appointment: Cehrry Wagoner WPtel: [address] [place] [address] (10 min) Simple 04/05/2017 Patient Education: Patient [...] allergy spray. 03/22/2017 Appointment: Gin Dooley WPtel: [facility] [place] [phone] [place] [address] (15 min) Moderate 03/22/2017 Patient Education: Patient [...] spray. 02/24/2017 Appointment: [facility]agon[facility]el[phone] (15 min) Moderate 02/24/2017 Patient Education: Patient [...] fever/discomfort. 08/20/2016 Appointment: Gin Dooley WPtel: [phone] [phone] [place] (10 min) Simple 08/20/2016 Patient [...] evaluation 02/07/2016 Appointment: [facility]in Dooley [facility]el[phone] (30 min) Complex 02/07/2016 Patient Education: Patient Medication Summary Completed 02/07/2016 Care Plan: Referral Order SNOMED-CT : [id number] Pending 02/07/2016 Visit Plan: Sinusitis - Pt [...] office 03/22/2015 Appointment: Gin Dooley [facility]Ptel[phone] [facility] 03/22/2015 Patient Education: Patient Medication [...] any worse. 06/20/2012 Appointment: Gin Dooley WPtel: [facility]8 [facility] [place] [address] Sick 06/20/2012 Patient Education: Patient Medication Summary [...] of testing. 03/18/2012 Appointment: Gin Dooley WPtel: [facility] [place] [address] Other 03/18/2012 Patient Education: Patient Medication Summary Completed 03/18/2012 Appointment: Claire Riggs WPtel: [facility] Lab Draw 03/17/2012 Patient Education: Patient [...] not resolve. 06/30/2011 Appointment: Gin Dooley WPtel: [address] [place], [place] [phone] [place] [address] Other 06/30/2011 Patient Education: Patient Medication Summary [...] at 3:30pm. 03/09/2011 Appointment: Claire Riggs WPtel: [facility]6 [facility]66[facility] Other 03/09/2011 Patient Education: Patient Medication [...] program. 01/12/2011 Appointment: Claire Riggs WPtel: [phone] New Patient 01/12/2011 Patient Education: Patient Medication [...] if symptoms not improved on this regimen. bring labs by the office take the [...] for an antibiotic nasal spray compound that [facility] makes . Sinusitis - Pt has [...] no improvement will refer to urology . Pharyngitis-Discussed natural and expected course of [...]
--- OUTSIDE RECORDS SUMMARY | 2018-11-22 07:05 | XMS REPORT | CCD ---
Author Author [facility] Organization [facility] Address [address] [place] [address] Phone Care Team Providers Care Masking Machine Feeder Name Role Phone Claire Riggs PP Unavailable CCM Unavailable Summary Purpose Interface Exchange Insurance Providers Payer name Policy type / Coverage type Covered alliance party ID Effective Begin Date Effective End Date [facility] [id number] Unknown Family history Mother Diagnosis Age At Onset Cancer Unknown Brother Diagnosis Age At Onset No Family Disease Entered N/A Grandmother Diagnosis Age At Onset Cancer Unknown Father Diagnosis Age At Onset No Family Disease Entered N/A Social History Social History Element Codes Description Effective Dates Marital status Unknown 01/12/2011 Employment Unknown 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 Unknown Has never used illegal drugs 01/12/2011 Allergies, Adverse Reactions, Alerts Allergies, Adverse Reactions, Alerts data not found Past Medical History Illness Codes Condition Status Onset Date Resolved Date Acute recurrent maxillary sinusitis ICD-9: 461.0 ICD-10: J01.01 Active 07/29/2015 Unknown Other acute sinusitis ICD- 9: 461.9 ICD-10: J01.80 Active 01/07/2016 Unknown Acute laryngopharyngitis ICD-9: 465.0 ICD-10: J06.0 Active 08/20/2016 Unknown Pain in right shoulder ICD-9: 719.41 ICD-10: M25.511 Active 06/09/2016 Unknown Melanocytic nevi, unspecified ICD-9: 216.9 ICD-10: D22.9 Active 02/06/2016 Unknown Other allergic rhinitis ICD-9: 477.8 ICD-10: J30.89 Active 01/07/2016 Unknown Allergic rhinitis, unspecified ICD-9: 477.9 ICD-10: J30.9 Active 03/21/2015 Unknown Encounter for general adult medical examination without abnormal findings ICD-9: V70.0 ICD-10: Z00.00 Active 03/21/2015 Unknown Influenza ICD-9: 487.1 Active [...] Problems Condition Codes Effective Dates Condition Status Acute recurrent maxillary sinusitis ICD-9: 461.0 ICD-10: J01.01 07/29/2015 Active Other acute sinusitis ICD- 9: 461.9 ICD-10: J01.80 01/07/2016 Active Acute laryngopharyngitis ICD-9: 465.0 ICD-10: J06.0 08/20/2016 Active Pain in right shoulder ICD-9: 719.41 ICD-10: M25.511 06/09/2016 Active Melanocytic nevi, unspecified ICD-9: 216.9 ICD-10: D22.9 02/06/2016 Active Other allergic rhinitis ICD-9: 477.8 ICD-10: J30.89 01/07/2016 Active Allergic rhinitis, unspecified ICD-9: 477.9 ICD-10: J30.9 03/21/2015 Active Encounter for general adult medical examination without abnormal findings ICD-9: V70.0 ICD-10: Z00.00 03/21/2015 Active Influenza ICD-9: 487.1 06/20/2012 Active [...] Start Date Stop Date Status Fill Instructions Zyrtec-D 5 mg-120 mg tablet,extended release RxNorm: 7260457 1 Tablet(s) PO BID as needed 12/01/2016 No Stop Date Active Zyrtec-D 5 mg-120 mg tablet,extended release RxNorm: 2218480 1 Tablet(s) PO BID as needed 11/03/2016 11/30/2016 Inactive Zyrtec-D 5 mg-120 mg tablet,extended release RxNorm: 2447840 1 Tablet(s) PO BID as needed 10/09/2016 11/02/2016 Inactive Kenalog 40 mg/mL suspension for injection RxNorm: 4929746 1 Milliliter(s) Inj 09/16/2016 09/16/2016 Inactive Levaquin 500 mg tablet RxNorm: 075306 1 Tablet(s) PO daily 09/15/2016 09/24/2016 Inactive Levaquin 500 mg tablet RxNorm: 690391 1 Tablet(s) PO daily 09/15/2016 09/14/2016 Inactive prednisone 20 mg tablet RxNorm: 613119 1 Tablet(s) PO BID 09/15/2016 09/19/2016 Inactive amoxicillin 500 mg tablet RxNorm: 607455 1 Tablet(s) PO BID 08/20/2016 08/29/2016 Inactive Augmentin 875 mg-125 mg tablet RxNorm: 797037 1 Tablet(s) PO BID 04/23/2016 04/28/2016 Inactive Zyrtec-D 5 mg-120 mg tablet,extended release RxNorm: 7225480 1 Tablet(s) PO BID as needed 01/31/2016 10/08/2016 Inactive Flonase 50 mcg/actuation nasal spray,suspension RxNorm: 6649412 1 [place]al NASAL BID 01/08/2016 01/22/2016 Inactive Flonase 50 mcg/actuation nasal spray,suspension RxNorm: 3585422 1 [place] NASAL BID 01/08/2016 01/07/2016 Inactive 1 spray each nare x 5 days Zithromax Z-Surya 250 mg tablet RxNorm: 813737 Tablet(s) PO 01/08/2016 01/30/2016 Inactive Zyrtec-D 5 mg-120 mg tablet,extended release RxNorm: 1677459 1 Tablet(s) PO BID as needed 01/08/2016 01/30/2016 Inactive Augmentin 875 mg-125 mg tablet RxNorm: 205737 1 Tablet(s) PO BID 10/08/2015 10/17/2015 Inactive Augmentin 875 mg-125 mg tablet RxNorm: 316245 1 Tablet(s) PO BID 10/08/2015 10/07/2015 Inactive prednisone 20 mg tablet RxNorm: 640993 1 Tablet(s) PO BID 08/01/2015 08/05/2015 Inactive prednisone 20 mg tablet RxNorm: 231034 1 Tablet(s) PO BID 08/01/2015 07/31/2015 Inactive Kenalog 40 mg/mL suspension for injection RxNorm: 8971967 Milliliter(s) Inj 07/30/2015 07/30/2015 Inactive Zyrtec-D 5 mg-120 mg tablet,extended release RxNorm: 4937147 1 Tablet(s) PO BID as needed 07/30/2015 01/07/2016 Inactive Augmentin 875 mg-125 mg tablet RxNorm: 998010 1 Tablet(s) PO BID 07/30/2015 08/05/2015 Inactive Kenalog 40 mg/mL suspension for injection RxNorm: 8164531 1 Milliliter(s) Inj 03/22/2015 03/22/2015 Inactive Flonase 50 mcg/actuation Nasal Coral RxNorm: 6698939 1 [place]al NASAL 07/12/2012 07/11/2012 Inactive 1 spray each nare x 5 days Flonase 50 mcg/actuation Nasal Coral RxNorm: 3814093 1 Coral NASAL 07/12/2012 07/16/2012 Inactive 1 spray each nare x 5 days cefdinir 300 mg capsule RxNorm: 804239 1 Capsule(s) PO BID 07/12/2012 07/18/2012 Inactive cefdinir 300 mg capsule RxNorm: 328472 1 Capsule(s) PO BID 07/12/2012 07/11/2012 Inactive Tamiflu 75 mg capsule RxNorm: 182521 1 Capsule(s) PO BID 06/20/2012 06/24/2012 Inactive Tamiflu 75 mg capsule RxNorm: 317092 1 Capsule(s) PO BID 06/20/2012 06/19/2012 Inactive Diflucan 150 mg tablet RxNorm: 608528 1 Tablet(s) PO daily 04/21/2012 05/04/2012 Inactive nystatin 100,000 unit/g Topical Cream RxNorm: 913160 1 Application TOP TID 04/13/2012 05/02/2012 Inactive one application to groin tid Diflucan 150 mg tablet RxNorm: 502235 1 Tablet(s) PO daily 04/04/2012 04/06/2012 Inactive nystatin 100,000 unit/g Topical Cream RxNorm: 117553 1 Application TOP TID 04/04/2012 04/03/2012 Inactive one application to groin tid x 10 day nystatin 100,000 unit/g Topical Cream RxNorm: 924620 1 Application TOP TID 04/04/2012 04/12/2012 Inactive one application to groin tid x 10 day Diflucan 150 mg tablet RxNorm: 002450 1 Tablet(s) PO daily 03/23/2012 03/22/2012 Inactive Diflucan 150 mg tablet RxNorm: 515720 1 Tablet(s) PO daily 03/23/2012 03/29/2012 Inactive Rocephin 1 gram Solution for Injection RxNorm: 596177 Inj 03/18/2012 03/18/2012 Inactive Augmentin 500 mg-125 mg tablet RxNorm: 310420 1 Tablet(s) PO TID 03/11/2012 03/10/2012 Inactive Augmentin 500 mg-125 mg tablet RxNorm: 697541 1 Tablet(s) PO TID 03/11/2012 03/17/2012 Inactive Kenalog 40 mg/mL Susp for Injection RxNorm: 2652213 1 Milliliter(s) Inj 07/02/2011 07/02/2011 Inactive Rocephin 500 mg Solution for Injection RxNorm: 751844 1 Milliliter(s) Inj 07/02/2011 07/02/2011 Inactive Bactrim DS 800 mg-160 mg Tab RxNorm: 855426 1 Tablet(s) PO BID 06/30/2011 07/09/2011 Inactive Aspirin For Children 81 mg Chewable Tab RxNorm: 920830 1 Tablet(s) PO daily No Start Date Active multivitamin Oral RxNorm: Oral No Start Date Active omeprazole 40 mg Cap, Delayed Release RxNorm: 034013 1 Capsule(s) PO PRN No Start Date Active Zithromax 500 mg tablet RxNorm: 4387800 2 Tablet(s) PO daily No Start Date 01/30/2016 Inactive Zyrtec-D 5 mg-120 mg 12 hr Tab RxNorm: 5694549 1 Tablet(s) PO daily No Start Date 07/29/2015 Inactive Medication Administered Medication Codes Instructions Start Date Status Kenalog 40 mg/mL suspension for injection RxNorm: 5206876 1Milliliter 09/16/2016 No longer Active Kenalog 40 mg/mL suspension for injection RxNorm: 2782960 Milliliter 07/30/2015 No longer Active Kenalog 40 mg/mL suspension for injection RxNorm: 4862467 1Milliliter 03/22/2015 No longer Active Rocephin 1 gram Solution for Injection RxNorm: 916226 03/18/2012 No longer Active Rocephin 500 mg Solution for Injection RxNorm: 161083 1Milliliter 07/02/2011 No longer Active Kenalog 40 mg/mL Susp for Injection RxNorm: 6553111 1Milliliter 07/02/2011 No longer Active Immunizations Vaccine Codes Date Status Tetanus, Diptheria, Pertussis Unknown 05/23/2010 completed Assessments Condition Codes Effective Dates Acute recurrent maxillary sinusitis ICD-10: J01.01 ICD-9: 461.0 09/16/2016 Acute laryngopharyngitis ICD-10: J06.0 ICD-9: 465.0 08/20/2016 Pain in right shoulder ICD-10: M25.511 ICD-9: 719.41 06/10/2016 Melanocytic nevi, unspecified ICD-10: D22.9 ICD-9: 216.9 02/07/2016 Other acute sinusitis ICD-10: J01.80 ICD-9: 461.9 01/08/2016 Other allergic rhinitis ICD-10: J30.89 ICD-9: 477.8 01/08/2016 Allergic rhinitis, unspecified ICD-10: J30.9 ICD-9: 477.9 03/22/2015 Encounter for general adult medical examination without abnormal findings ICD-10: Z00.00 ICD-9: V70.0 03/22/2015 Influenza ICD-9: 487.1 06/20/2012 DYSURIA ICD-9: 788.1 03/18/2012 Screen for sexually transmitted diseases ICD-9: V74.5 03/18/2012 COUGH ICD-9: 786.2 06/30/2011 ACUTE SINUSITIS ICD-9: 461.9 06/30/2011 ESOPHAGEAL REFLUX ICD-9: 530.81 03/09/2011 Constipation ICD-9: 564.00 03/09/2011 Encounter for annual health examination ICD-9: V70.0 01/12/2011 Reason For Visit Reason For Visit Effective Dates Notes sore throat 08/20/2016 shoulder pain 06/10/2016 skin lesion 02/07/2016 sinus congestion 01/08/2016 cough 07/30/2015 well man exam (18-39 years) 03/22/2015 sinus congestion 06/20/2012 dysuria 03/18/2012 sinus congestion 06/30/2011 abdominal pain 03/09/2011 ~generic 01/12/2011 new patient - transfer from Dr. Francisco Results Observation Observation Code Item Item Code Result Date C RAP A SC 7735554 Strep A Negative 08/20/2016 GC/CHL PRB 5038618 SOURCE CASSANDRA UNKNOWN 03/19/2012 GC/CHL PRB 7934011 CHLM PROBE NEG 03/19/2012 GC/CHL PRB 5569808 GC PROBE NEG 03/19/2012 URINALYSIS NONAUTO W/O SCOPE 24705 Specific [place] 1.010 DateTime(Free Text in Aprima) URINALYSIS NONAUTO W/O SCOPE 24460 PH 6.5 DateTime(Free Text in Aprima) URINALYSIS NONAUTO W/O SCOPE 59873 GLUCOSE neg DateTime(Free Text in Aprima) URINALYSIS NONAUTO W/O SCOPE 71419 Protein neg DateTime(Free Text in Aprima) URINALYSIS NONAUTO W/O SCOPE 74210 Blood neg DateTime(Free Text in Aprima) URINALYSIS NONAUTO W/O SCOPE 68427 Bilirubin neg DateTime(Free Text in Aprima) URINALYSIS NONAUTO W/O SCOPE 23647 Ketones neg DateTime(Free Text in Aprima) URINALYSIS NONAUTO W/O SCOPE 82756 Urobilinogen neg DateTime(Free Text in ) URINALYSIS NONAUTO W/O SCOPE 89953 Nitrite neg DateTime(Free Text in ) URINALYSIS NONAUTO W/O SCOPE 12858 Leukocytes neg DateTime(Free Text in ) Review of Systems System Result Effective Dates Constitutional recent illness 08/20/2016 Constitutional No anorexia [...] Result Effective Dates Notes Full Exam - ENT Constitutional general appearance [...] affect 01/12/2011 None Procedures Procedure Codes Date THER/PROPH/DIAG INJ SC/IM CPT-4: 21427Rbuljyw 09/16/2016 TRIAMCINOLONE ACET INJ NOS CPT-4: J7410Rtgiepo 09/16/2016 TRIAMCINOLONE ACET INJ NOS CPT-4: B7447Pyaccmw 07/30/2015 TRIAMCINOLONE ACET INJ NOS CPT-4: O9054Lakxxcf 03/22/2015 ROCEPHIN, PER 250 MG CPT-4: N7503Nopzvan 03/18/2012 URINALYSIS NONAUTO W/O SCOPE CPT-4: 84887Oelxybq 03/17/2012 ROCEPHIN, PER 250 MG CPT-4: G0721Htfkvbr 06/30/2011 TRIAMCINOLONE ACET INJ NOS CPT-4: L5094Eoajoyz 06/30/2011 Vital Signs Date Vital 08/20/2016 Blood Pressure 1: 126/78 Code: 8480-6 BMI: 24.1 Code: 17065-2 Heart Rate 1: 84 bpm Height: 6'2" SpO2: 98% Temperature: 37.1 (C) / 98.8 (F) Weight: 188 lbs 06/10/2016 Blood Pressure 1: 124/62 Code: 8480-6 BMI: 24.4 Code: 24108-2 Heart Rate 1: 85 bpm Height: 6'2" SpO2: 98% Weight: 190 lbs 02/07/2016 Blood Pressure 1: 128/72 Code: 8480-6 BMI: 23.6 Code: 59509-5 Heart Rate 1: 78 bpm Height: 6'2" SpO2: 96% Weight: 184 lbs 01/08/2016 Blood Pressure 1: 108/70 Code: 8480-6 BMI: 23.4 Code: 94029-6 Heart Rate 1: 84 bpm Height: 6'2" SpO2: 96% Weight: 182 lbs 07/30/2015 Blood Pressure 1: 110/64 Code: 8480-6 BMI: 22.6 Code: 37209-7 Heart Rate 1: 78 bpm Height: 6'2" SpO2: 98% Weight: 176 lbs 03/22/2015 Blood Pressure 1: 126/80 Code: 8480-6 BMI: 24.0 Code: 08293-1 Heart Rate 1: 76 bpm Height: 6'2" SpO2: 98% Weight: 187 lbs 06/20/2012 Blood Pressure 1: 110/76 Code: 8480-6 Heart Rate 1: 100 bpm Temperature: 38.7 (C) / 101.7 (F) Weight: 169 lbs 03/18/2012 Blood Pressure 1: 132/70 Code: 8480-6 Heart Rate 1: 80 bpm Weight: 160 lbs 06/30/2011 Blood Pressure 1: 110/72 Code: 8480-6 BMI: 23.9 Code: 48291-5 Heart Rate 1: 72 bpm Height: 6'2" Respiratory Rate: 20 bpm Weight: 186 lbs 03/09/2011 Blood Pressure 1: 96/58 Code: 8480-6 BMI: 23.2 Code: 73551- 5 Heart Rate 1: 80 bpm Height: 6'2" Respiratory Rate: 16 bpm Weight: 183 lbs 01/12/2011 Blood Pressure 1: 126/80 Code: 8480-6 BMI: 23.5 Code: 36571-0 Heart Rate 1: 82 bpm Height: 6'2" Respiratory Rate: 16 bpm Weight: 183 lbs Functional Status No Functional Status data History of Present Illness Symptom Name Status Result Effective Date Notes sore throat Location in the posterior pharyngeal [...] data Encounters Encounter Performer Location Codes Date () 40796 EST. PATIENT, LEVEL III Diagnosis: Acute laryngopharyngitis[ICD10: J06.0] Gin Riggs MD, [facility] CPT-4: 13474 08/20/2016 81560 EST. PATIENT, LEVEL III Diagnosis: Pain in right shoulder[ICD10: M25.511] Cherry Riggs MD, [facility] CPT- 4: 94287 06/10/2016 ([id number]) 21868 EST. PATIENT, LEVEL II Diagnosis: Melanocytic nevi, unspecified[ICD10: D22.9] Gin Riggs MD, [facility] CPT-4: 54599 02/07/2016 19866 EST. PATIENT, LEVEL III Diagnosis: Other acute sinusitis[ICD10: J01.80] Diagnosis: Other allergic rhinitis[ICD10: J30.89] Cherry Riggs MD, [facility] CPT- 4: 02597 01/08/2016 ([id number]) 89584 EST. PATIENT, LEVEL III Diagnosis: Acute recurrent maxillary sinusitis[ICD10: J01.01] Gin Riggs MD, [facility] CPT-4: 84933 07/30/2015 ([id number]) PREV VISIT EST AGE 18-39 Diagnosis: Encounter for general adult medical examination without abnormal findings[ICD10: Z00.00] Diagnosis: Allergic rhinitis, unspecified[ICD10: J30.9] Gin Riggs MD, [facility] CPT-4: 84605 03/22/2015 ([id number]) 18738 EST. PATIENT, LEVEL III Diagnosis: Influenza[ICD9: 487.1] Gin Riggs MD, [facility] CPT-4: 14500 06/20/2012 17450 EST. PATIENT, LEVEL II Diagnosis: DYSURIA[ICD9: 788.1] Diagnosis: Screen for sexually transmitted diseases[ICD9: V74.5] [facility] CPT-4: 48491 03/18/2012 ([id number]) 41453 EST. PATIENT, LEVEL III Diagnosis: ACUTE SINUSITIS[ICD9: 461.9] [facility] CPT-4: 23053 06/30/2011 52371 EST. PATIENT, LEVEL IV Diagnosis: ESOPHAGEAL REFLUX[ICD9: 530.81] Diagnosis: Constipation[ICD9: 564.00] [facility] CPT-4: 76692 03/09/2011 OFFICE VISIT, NEW - LEVEL 3 Diagnosis: Encounter for annual health examination[ICD9: V70.0] Diagnosis: Esophageal reflux[ICD9: 530.81] [facility] CPT-4: 15612 01/12/2011 Plan of Care Planned Activity Notes Codes Status Date Appointment: Injection 09/16/2016 Patient Education: Patient Medication Summary Completed 09/16/2016 Visit Plan: Pharyngitis-Discussed natural and expected course of this diagnosis and need to alert me if symtpoms do not follow expected course, or if any worse. Recommended salt water gargles as needed for pain. Tylenol/motrin as needed for fever/discomfort. 08/20/2016 Visit Plan: Pharyngitis-Discussed natural and expected course of this diagnosis and need to alert me if symtpoms do not follow expected course, or if any worse. Recommended salt water gargles as needed for pain. Tylenol/motrin as needed for fever/discomfort. 08/20/2016 Appointment: Gin Dooley [facility]Ptel[phone] (10 min) Simple 08/20/2016 Patient Education: Patient Medication Summary Completed 08/20/2016 Visit Plan: Right shoulder pain - ongoing - Will order MRI - The pt is to use prn antiinflammatories to manage acute pain. The patient is to call the office if the pain is worsening or does not improve. 06/10/2016 Patient Education: Patient Medication Summary Completed 06/10/2016 Visit Plan: Abnormal mole-right ankle-patients concerned-refer to Dr Greene for evaluation 02/07/2016 Appointment: Gin Dooley WPtel: [address] [place], [place] [phone] (30 min) Complex 02/07/2016 Patient Education: Patient Medication Summary Completed 02/07/2016 Care Plan: Referral Order SNOMED-CT : [id number] Pending 02/07/2016 Visit Plan: Sinusitis - Pt has acute infection - pain in face, maxillary region, Pt informed to use decongestant, RX given to patient, sinus rinses also recommended. Call if symptoms do not show improvement.Allergies - chronic - recommended pt to use allergy medication as prescribed. Pt has been counseled as to the appropriate use of the medication. Pt to call if allergy symptoms are not controlled with the medication.If using nasal spray, instructions as follows: Nasal [...] cholesterol, thyroid, chem panel, CBC, and renal functioning.Allergies - chronic - recommended pt to use allergy medication as prescribed. Pt has been counseled as to the appropriate use of the medication. Pt to call if allergy symptoms are not controlled with the medication.If using nasal spray, instructions as follows: Nasal spray- use twice daily, one spray per nostril twice daily, after 30 minutes, rinse out nose with saline spray.. Use opposite hand per nostril to spray in the nasal steroid allergy spray.Kenalog injection today in the office 03/22/2015 Appointment: Gin Dooley WPtel: [phone] [facility] [place] [address] Physical 03/22/2015 Patient Education: Patient Medication Summary [...] any worse. 06/20/2012 Appointment: Gin Dooley WPtel: [address] [place], [place] [phone] Sick 06/20/2012 Patient Education: Patient Medication Summary [...] of testing. 03/18/2012 Appointment: Gin Dooley WPtel: [address] [place] [address] Other 03/18/2012 Patient Education: Patient Medication Summary Completed 03/18/2012 Appointment: Claire Riggs WPtel: [address] [place] [address] Lab Draw 03/17/2012 Patient Education: Patient Medication Summary Completed 03/17/2012 Visit Plan: Sinusitis - Pt has acute infection - pain in face, maxillary region, Pt informed to use decongestant, RX given to patient, sinus rinses also recommended. Call if symptoms do not show improvement.Cough-rocephin and kenalog injection today in the office-rx for zpack to patient's pharmacy-call if symptoms do not resolve. 06/30/2011 Appointment: Gin Dooley WPtel: [address] [place], [place] [phone] [place] Other 06/30/2011 Patient Education: Patient Medication Summary Completed 06/30/2011 Visit Plan: ESOPHAGEAL REFLUX- recommend pt to take the omeprazole daily as directed and avoid spicy food, caffiene, peppermint, and acidic foods.Fatty foods may also worsen reflux.Chronic constipation alternating with diarrhea is common to see with Irritable bowel syndrome.. Usethe power pudding recipe to keep the stools soft.Appt with Dr. Bartholomew is for March 25 at 3:30pm. 03/09/2011 Appointment: Claire Riggs WPtel: [phone] [facility] Other 03/09/2011 Patient Education: Patient Medication Summary [...] - all of which can exacerbate esophageal reflux.The patient is to take medications as prescribed and call the office if the symptoms are not improving.We discussed the need for the patient to follow a low fat diet and to start an exercise program. 01/12/2011 Appointment: Claire Riggs WPtel: [facility] New Patient 01/12/2011 Patient Education: Patient Medication [...] call patient with results of testing. . Sinusitis - Pt has acute infection [...] Bartholomew is for March 25 at 3:30pm. Zyrte D Continue flonase Call if your symptoms [...] diet and to start an exercise program. aleve twice a day for the next [...] Call if symptoms do not show improvement. . Pharyngitis-Discussed natural and expected course of [...]
--- OUTSIDE RECORDS SUMMARY | 2018-11-22 07:06 | XMS REPORT | CCD ---
Author Author [facility] Organization [facility] Address [address] [place] [address] Phone Care Team Providers Care Psychiatric Nursing Aide Name Role Phone Claire Riggs PP Unavailable CCM Unavailable Summary Purpose Interface Exchange Insurance Providers Payer name Policy type / Coverage type Covered constitution party ID Effective Begin Date Effective End Date [facility] [id number] Unknown Family history Mother Diagnosis Age At Onset Cancer Unknown Brother Diagnosis Age At Onset No Family Disease Entered N/A Grandmother Diagnosis Age At Onset Cancer Unknown Father Diagnosis Age At Onset No Family Disease Entered N/A Social History Social History Element Codes Description Effective Dates Marital status Unknown 01/12/2011 Employment Unknown 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 01/12/[address]: 102539659 Never smoker 01/12/[address]: 288911 Currently drinks alcohol socially 01/12/2011 Has the [...] Zyrtec-D 5 mg-120 mg tablet,extended release RxNorm: 9574707 1 Tablet(s) PO BID as needed 11/03/2016 No Stop Date Active Zyrtec-D 5 mg-120 mg tablet,extended release RxNorm: 8318463 1 Tablet(s) PO BID as needed 10/09/2016 11/02/2016 Inactive Kenalog 40 mg/mL suspension for injection RxNorm: 0761776 1 Milliliter(s) Inj 09/16/2016 09/16/2016 Inactive Levaquin 500 mg tablet RxNorm: 078294 1 Tablet(s) PO daily 09/15/2016 09/24/2016 Inactive Levaquin 500 mg tablet RxNorm: 768926 1 Tablet(s) PO daily 09/15/2016 09/14/2016 Inactive prednisone 20 mg tablet RxNorm: 502652 1 Tablet(s) PO BID 09/15/2016 09/19/2016 Inactive amoxicillin 500 mg tablet RxNorm: 847818 1 Tablet(s) PO BID 08/20/2016 08/29/2016 Inactive Augmentin 875 mg-125 mg tablet RxNorm: 443770 1 Tablet(s) PO BID 04/23/2016 04/28/2016 Inactive Zyrtec-D 5 mg-120 mg tablet,extended release RxNorm: 7519013 1 Tablet(s) PO BID as needed 01/31/2016 10/08/2016 Inactive Flonase 50 mcg/actuation nasal spray,suspension RxNorm: 6567023 1 [place] NASAL BID 01/08/2016 01/22/2016 Inactive Flonase 50 mcg/actuation nasal spray,suspension RxNorm: 3055146 1 [place] NASAL BID 01/08/2016 01/07/2016 Inactive 1 spray each nare x 5 days Zithromax Z-Surya 250 mg tablet RxNorm: 716996 Tablet(s) PO 01/08/2016 01/30/2016 Inactive Zyrtec-D 5 mg-120 mg tablet,extended release RxNorm: 4992226 1 Tablet(s) PO BID as needed 01/08/2016 01/30/2016 Inactive Augmentin 875 mg-125 mg tablet RxNorm: 975161 1 Tablet(s) PO BID 10/08/2015 10/17/2015 Inactive Augmentin 875 mg-125 mg tablet RxNorm: 395882 1 Tablet(s) PO BID 10/08/2015 10/07/2015 Inactive prednisone 20 mg tablet RxNorm: 912527 1 Tablet(s) PO BID 08/01/2015 08/05/2015 Inactive prednisone 20 mg tablet RxNorm: 766609 1 Tablet(s) PO BID 08/01/2015 07/31/2015 Inactive Kenalog 40 mg/mL suspension for injection RxNorm: 4972235 Milliliter(s) Inj 07/30/2015 07/30/2015 Inactive Zyrtec-D 5 mg-120 mg tablet,extended release RxNorm: 9801758 1 Tablet(s) PO BID as needed 07/30/2015 01/07/2016 Inactive Augmentin 875 mg-125 mg tablet RxNorm: 613175 1 Tablet(s) PO BID 07/30/2015 08/05/2015 Inactive Kenalog 40 mg/mL suspension for injection RxNorm: 6549154 1 Milliliter(s) Inj 03/22/2015 03/22/2015 Inactive Flonase 50 mcg/actuation Nasal [place] RxNorm: 5713216 1 [place] NASAL 07/12/2012 07/11/2012 Inactive 1 spray each nare x 5 days Flonase 50 mcg/actuation Nasal [place] RxNorm: 2108534 1 [place] NASAL 07/12/2012 07/16/2012 Inactive 1 spray each nare x 5 days cefdinir 300 mg capsule RxNorm: 938532 1 Capsule(s) PO BID 07/12/2012 07/18/2012 Inactive cefdinir 300 mg capsule RxNorm: 665794 1 Capsule(s) PO BID 07/12/2012 07/11/2012 Inactive Tamiflu 75 mg capsule RxNorm: 861878 1 Capsule(s) PO BID 06/20/2012 06/24/2012 Inactive Tamiflu 75 mg capsule RxNorm: 511261 1 Capsule(s) PO BID 06/20/2012 06/19/2012 Inactive Diflucan 150 mg tablet RxNorm: 560567 1 Tablet(s) PO daily 04/21/2012 05/04/2012 Inactive nystatin 100,000 unit/g Topical Cream RxNorm: 994610 1 Application TOP TID 04/13/2012 05/02/2012 Inactive one application to groin tid Diflucan 150 mg tablet RxNorm: 716019 1 Tablet(s) PO daily 04/04/2012 04/06/2012 Inactive nystatin 100,000 unit/g Topical Cream RxNorm: 680504 1 Application TOP TID 04/04/2012 04/03/2012 Inactive one application to groin tid x 10 day nystatin 100,000 unit/g Topical Cream RxNorm: 027447 1 Application TOP TID 04/04/2012 04/12/2012 Inactive one application to groin tid x 10 day Diflucan 150 mg tablet RxNorm: 606989 1 Tablet(s) PO daily 03/23/2012 03/22/2012 Inactive Diflucan 150 mg tablet RxNorm: 110054 1 Tablet(s) PO daily 03/23/2012 03/29/2012 Inactive Rocephin 1 gram Solution for Injection RxNorm: 773985 Inj 03/18/2012 03/18/2012 Inactive Augmentin 500 mg-125 mg tablet RxNorm: 591292 1 Tablet(s) PO TID 03/11/2012 03/10/2012 Inactive Augmentin 500 mg-125 mg tablet RxNorm: 603603 1 Tablet(s) PO TID 03/11/2012 03/17/2012 Inactive Kenalog 40 mg/mL Susp for Injection RxNorm: 5437128 1 Milliliter(s) Inj 07/02/2011 07/02/2011 Inactive Rocephin 500 mg Solution for Injection RxNorm: 211010 1 Milliliter(s) Inj 07/02/2011 07/02/2011 Inactive Bactrim DS 800 mg-160 mg Tab RxNorm: 109632 1 Tablet(s) PO BID 06/30/2011 07/09/2011 Inactive Aspirin For Children 81 mg Chewable Tab RxNorm: 734839 1 Tablet(s) PO daily No Start Date Active multivitamin Oral RxNorm: Oral No Start Date Active omeprazole 40 mg Cap, Delayed Release RxNorm: 101371 1 Capsule(s) PO PRN No Start Date Active Zithromax 500 mg tablet RxNorm: 6328055 2 Tablet(s) PO daily No Start Date 01/30/2016 Inactive Zyrtec-D 5 mg-120 mg 12 hr Tab RxNorm: 0630736 1 Tablet(s) PO daily No Start Date 07/29/2015 Inactive Medication Administered Medication Codes Instructions Start Date Status Kenalog 40 mg/mL suspension for injection RxNorm: 3757023 1Milliliter 09/16/2016 No longer Active Kenalog 40 mg/mL suspension for injection RxNorm: 7798984 Milliliter 07/30/2015 No longer Active Kenalog 40 mg/mL suspension for injection RxNorm: 2723120 1Milliliter 03/22/2015 No longer Active Rocephin 1 gram Solution for Injection RxNorm: 655769 03/18/2012 No longer Active Rocephin 500 mg Solution for Injection RxNorm: 912888 1Milliliter 07/02/2011 No longer Active Kenalog 40 mg/mL Susp for Injection RxNorm: 8008562 1Milliliter 07/02/2011 No longer Active Immunizations Vaccine [...] Code Result Date C RAP A SC 6586917 Strep A Negative 08/20/2016 GC/CHL PRB 0030633 SOURCE CASSANDRA UNKNOWN 03/19/2012 GC/CHL PRB 5029182 CHLM PROBE NEG 03/19/2012 GC/CHL PRB 4534106 GC PROBE NEG 03/19/2012 URINALYSIS NONAUTO W/O SCOPE 24060 Specific [place] 1.010 DateTime(Free Text in Aprima) URINALYSIS NONAUTO W/O SCOPE 81679 PH 6.5 DateTime(Free Text in Aprima) URINALYSIS NONAUTO W/O SCOPE 95622 GLUCOSE neg DateTime(Free Text in Aprima) URINALYSIS NONAUTO W/O SCOPE 27227 Protein neg DateTime(Free Text in Aprima) URINALYSIS NONAUTO W/O SCOPE 96349 Blood neg DateTime(Free Text in Aprima) URINALYSIS NONAUTO W/O SCOPE 40293 Bilirubin neg DateTime(Free Text in Aprima) URINALYSIS NONAUTO W/O SCOPE 29744 Ketones neg DateTime(Free Text in Aprima) URINALYSIS NONAUTO W/O SCOPE 39758 Urobilinogen neg DateTime(Free Text in Aprima) URINALYSIS NONAUTO W/O SCOPE 92307 Nitrite neg DateTime(Free Text in Aprima) URINALYSIS NONAUTO W/O SCOPE 51846 Leukocytes neg DateTime(Free Text in ) Review [...] time 07/30/2015 None Full Exam - General [facility] Psychiatric orientation/consciousness Overall: oriented to person, place [...] Procedure Codes Date THER/PROPH/DIAG INJ SC/IM CPT-4: 94743Wxyajit 09/16/2016 TRIAMCINOLONE ACET INJ NOS CPT-4: K1739Waturbu 09/16/2016 TRIAMCINOLONE ACET INJ NOS CPT-4: V7426Qxszxnj 07/30/2015 TRIAMCINOLONE ACET INJ NOS CPT-4: I5112Ycfuglk 03/22/2015 ROCEPHIN, PER 250 MG CPT-4: R7997Rgsdpnz 03/18/2012 URINALYSIS NONAUTO W/O SCOPE CPT-4: 83898Sxphgsy 03/17/2012 ROCEPHIN, PER 250 MG CPT-4: G9649Yyyprgi 06/30/2011 TRIAMCINOLONE ACET INJ NOS CPT-4: N1777Qbiyfho 06/30/2011 Vital Signs Date Vital 08/20/2016 Blood Pressure 1: 126/78 Code: 8480-6 BMI: 24.1 Code: 91376-6 Heart Rate 1: 84 bpm Height: 6'2" SpO2: 98% Temperature: 37.1 (C) / 98.8 (F) Weight: 188 lbs 06/10/2016 Blood Pressure 1: 124/62 Code: 8480-6 BMI: 24.4 Code: 43824-1 Heart Rate 1: 85 bpm Height: 6'2" SpO2: 98% Weight: 190 lbs 02/07/2016 Blood Pressure 1: 128/72 Code: 8480-6 BMI: 23.6 Code: 09922-1 Heart Rate 1: 78 bpm Height: 6'2" SpO2: 96% Weight: 184 lbs 01/08/2016 Blood Pressure 1: 108/70 Code: 8480-6 BMI: 23.4 Code: 30555-3 Heart Rate 1: 84 bpm Height: 6'2" SpO2: 96% Weight: 182 lbs 07/30/2015 Blood Pressure 1: 110/64 Code: 8480-6 BMI: 22.6 Code: 77036-6 Heart Rate 1: 78 bpm Height: 6'2" SpO2: 98% Weight: 176 lbs 03/22/2015 Blood Pressure 1: 126/80 Code: 8480-6 BMI: 24.0 Code: 61916-7 Heart Rate 1: 76 bpm Height: 6'2" SpO2: 98% Weight: 187 lbs 06/20/2012 Blood Pressure 1: 110/76 Code: 8480-6 Heart Rate 1: 100 bpm Temperature: 38.7 (C) / 101.7 (F) Weight: 169 lbs 03/18/2012 Blood Pressure 1: 132/70 Code: 8480-6 Heart Rate 1: 80 bpm Weight: 160 lbs 06/30/2011 Blood Pressure 1: 110/72 Code: 8480-6 BMI: 23.9 Code: 35860-0 Heart Rate 1: 72 bpm Height: 6'2" Respiratory Rate: 20 bpm Weight: 186 lbs 03/09/2011 Blood Pressure 1: 96/58 Code: 8480-6 BMI: 23.2 Code: 96052- 5 Heart Rate 1: 80 bpm Height: 6'2" Respiratory Rate: 16 bpm Weight: 183 lbs 01/12/2011 Blood Pressure 1: 126/80 Code: 8480-6 BMI: 23.5 Code: 30558-4 Heart Rate 1: 82 bpm Height: 6'2" [...] Encounters Encounter Performer Location Codes Date () 37326 EST. PATIENT, LEVEL III Diagnosis: Acute laryngopharyngitis[ICD10: J06.0] Gin Riggs MD, [facility] CPT-4: 55633 08/20/2016 22268 EST. PATIENT, LEVEL III Diagnosis: Pain in right shoulder[ICD10: M25.511] Cherry Riggs MD, [facility] CPT- 4: 03247 06/10/2016 ([id number]) 94869 EST. PATIENT, LEVEL II Diagnosis: Melanocytic nevi, unspecified[ICD10: D22.9] Gin Riggs MD, [facility] CPT-4: 00316 02/07/2016 36664 EST. PATIENT, LEVEL III Diagnosis: Other acute sinusitis[ICD10: J01.80] Diagnosis: Other allergic rhinitis[ICD10: J30.89] Cherry Riggs MD, [facility] CPT- 4: 88000 01/08/2016 ([id number]) 19735 EST. PATIENT, LEVEL III Diagnosis: Acute recurrent maxillary sinusitis[ICD10: J01.01] Gin Riggs MD, [facility] CPT-4: 91084 07/30/2015 ([id number]) PREV VISIT EST AGE 18-39 Diagnosis: Encounter for general adult medical examination without abnormal findings[ICD10: Z00.00] Diagnosis: Allergic rhinitis, unspecified[ICD10: J30.9] Gin Riggs MD, [facility] CPT-4: 89013 03/22/2015 ([id number]) 67231 EST. PATIENT, LEVEL III Diagnosis: Influenza[ICD9: 487.1] Gin Riggs MD, [facility] CPT-4: 83821 06/20/2012 12256 EST. PATIENT, LEVEL II Diagnosis: DYSURIA[ICD9: 788.1] Diagnosis: Screen for sexually transmitted diseases[ICD9: V74.5] Gin Riggs MD, [facility] CPT-4: 20396 03/18/2012 ([id number]) 82074 EST. PATIENT, LEVEL III Diagnosis: ACUTE SINUSITIS[ICD9: 461.9] Gin Riggs MD, [facility] CPT-4: 78149 06/30/2011 68205 EST. PATIENT, LEVEL IV Diagnosis: ESOPHAGEAL REFLUX[ICD9: 530.81] Diagnosis: Constipation[ICD9: 564.00] [facility] CPT-4: 90856 03/09/2011 OFFICE VISIT, NEW - LEVEL 3 Diagnosis: Encounter for annual health examination[ICD9: V70.0] Diagnosis: Esophageal reflux[ICD9: 530.81] [facility] CPT-4: 90191 01/12/2011 Plan of Care Planned Activity Notes [...] fever/discomfort. 08/20/2016 [facility] [phone] [phone] (10 min) Simple 08/20/2016 Patient Education: Patient [...] for evaluation 02/07/2016 [facility]ment[phone] [facility] [phone] (30 min) Complex 02/07/2016 Patient Education: Patient Medication Summary Completed 02/07/2016 Care Plan: Referral Order SNOMED-CT : [id number] Pending 02/07/2016 Visit Plan: Sinusitis - Pt [...] the office 03/22/2015 Appointment: Gin Dooley WPtel: [address] [place], [place] [phone] Physical 03/22/2015 Patient Education: Patient Medication Summary [...] any worse. 06/20/2012 Appointment: Gin Dooley WPtel: [address] [place] [address] Sick 06/20/2012 Patient Education: Patient Medication Summary [...] of testing. 03/18/2012 Appointment: Gin Dooley WPtel: [address] [place] [address] Other 03/18/2012 Patient Education: Patient Medication Summary Completed 03/18/2012 Appointment: Claire Riggs WPtel: [address] [place] [address] Lab Draw 03/17/2012 Patient Education: Patient Medication [...] not resolve. 06/30/2011 Appointment: Gin Dooley WPtel: [facility] [place] [phone] Other 06/30/2011 Patient Education: Patient Medication Summary [...] at 3:30pm. 03/09/2011 Appointment: Claire Riggs WPtel: [facility] Other 03/09/2011 Patient Education: Patient [...] exercise program. 01/12/2011 Appointment: Claire Riggs WPtel: [phone] [facility] 01/12/2011 Patient Education: Patient Medication [...] Bartholomew is for March 25 at 3:30pm. Zyrtec D Continue flonase Call if your [...]
--- OUTSIDE RECORDS SUMMARY | 2018-11-22 07:08 | XMS REPORT | CCD ---
Author Author [facility] Organization [facility] Address [address] [place] [address] Phone Care Team Providers Care Music Supervisor Name Role Phone Claire Riggs PP Unavailable CCM Unavailable Summary Purpose Interface Exchange Insurance Providers Payer name Policy type / Coverage type Covered alliance party ID Effective Begin Date Effective End Date Blue Cross Blue [facility] Blue Cross/Blue [facility] [id number] Unknown Family history Mother Diagnosis Age At Onset Cancer Unknown Brother Diagnosis Age At Onset No Family Disease Entered N/A Grandmother Diagnosis Age At Onset Cancer Unknown Father Diagnosis Age At Onset No Family Disease Entered N/A Social History Social History Element Codes Description Effective Dates Marital status Unknown 01/12/2011 Employment Unknown 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 Unknown Has never used illegal drugs 01/12/2011 Allergies, Adverse Reactions, Alerts Substance Reaction Codes Entered Date Inactivated Date Status * NO KNOWN FOOD ALLERGIES Unknown 01/12/2011 No Inactive Date Active bactrim RxNorm: 958160 03/22/2015 No Inactive Date Active Past Medical History Illness Codes Condition Status Onset Date Resolved Date Candidiasis of skin and nail ICD-9: 112.3 [...] Problems Condition Codes Effective Dates Condition Status Candidiasis of skin and nail ICD-9: 112.3 [...] Hour 60 mg-120 mg tablet,extended release RxNorm: 393994 1 Tablet(s) PO BID 09/07/2018 No Stop Date Active fluconazole 150 mg tablet RxNorm: 404523 1 Tablet(s) PO daily 08/08/2018 08/14/2018 Inactive omeprazole 20 mg capsule,delayed release RxNorm: 312037 1 Capsule(s) PO daily 06/28/2018 10/25/2018 Active Flonase 50 mcg/actuation nasal spray,suspension RxNorm: 6776672 1 [place] NASAL BID 06/22/2018 No Stop Date Active Zyrtec-D 5 mg-120 mg tablet,extended release RxNorm: 5781875 1 Tablet(s) PO BID as needed 06/22/2018 No Stop Date Active Augmentin 875 mg-125 mg tablet RxNorm: 812067 1 Tablet(s) PO BID 06/02/2018 06/08/2018 Inactive Zithromax Z-Surya 250 mg tablet RxNorm: 211727 1 Tablet(s) PO UD 03/24/2018 06/01/2018 Inactive Flonase 50 mcg/actuation nasal spray,suspension RxNorm: 5296001 1 [place] NASAL BID 03/01/2018 06/21/2018 Inactive Cipro 500 mg tablet RxNorm: 174627 1 Tablet(s) PO BID 02/16/2018 02/25/2018 Inactive Diflucan 150 mg tablet RxNorm: 172293 1 Tablet(s) PO daily start after cipro is finished 02/16/2018 02/22/2018 Inactive Augmentin 875 mg-125 mg tablet RxNorm: 275024 1 Tablet(s) PO BID 12/24/2017 12/23/2017 Inactive Augmentin 875 mg-125 mg tablet RxNorm: 009076 1 Tablet(s) PO BID 12/24/2017 12/30/2017 Inactive Keflex 500 mg capsule RxNorm: 992483 1 Capsule(s) PO TID 12/08/2017 12/14/2017 Inactive Yuridia-D 12 Hour 60 mg-120 mg tablet,extended release RxNorm: 467367 1 Tablet(s) PO BID 12/06/2017 09/06/2018 Inactive Keflex 500 mg capsule RxNorm: 336693 1 Capsule(s) PO TID 11/26/2017 12/02/2017 Inactive Flonase 50 mcg/actuation nasal spray,suspension RxNorm: 4010288 1 [place] NASAL BID 11/15/2017 02/28/2018 Inactive Yuridia Allergy 180 mg tablet RxNorm: 868750 1 Tablet(s) PO daily 10/27/2017 10/27/2017 Inactive Zyrtec-D 5 mg-120 mg tablet,extended release RxNorm: 7312824 1 Tablet(s) PO BID as needed 10/20/2017 06/21/2018 Inactive Yuridia Allergy 180 mg tablet RxNorm: 943701 1 Tablet(s) PO daily 09/21/2017 10/20/2017 Inactive Augmentin 500 mg-125 mg tablet RxNorm: 948500 1 Tablet(s) PO TID 07/21/2017 07/30/2017 Inactive Yuridia Allergy 180 mg tablet RxNorm: 766572 1 Tablet(s) PO daily 07/21/2017 08/19/2017 Inactive Zyrtec-D 5 mg-120 mg tablet,extended release RxNorm: 9955472 1 Tablet(s) PO BID as needed 06/15/2017 10/19/2017 Inactive Zyrtec-D 5 mg-120 mg tablet,extended release RxNorm: 4478212 1 Tablet(s) PO BID as needed 05/11/2017 02/21/2018 Inactive prednisone 10 mg tablet RxNorm: 103161 Tablet(s) PO 04/05/2017 12/07/2017 Inactive 6,5,4,3,2,1 Kenalog 40 mg/mL suspension for injection RxNorm: 4504983 1 Milliliter(s) Inj 04/05/2017 04/05/2017 Inactive Flonase 50 mcg/actuation nasal spray,suspension RxNorm: 4602097 1 [place] NASAL BID 04/01/2017 11/14/2017 Inactive Augmentin 875 mg-125 mg tablet RxNorm: 732582 1 Tablet(s) PO BID 03/22/2017 03/28/2017 Inactive prednisone 20 mg tablet RxNorm: 712644 2 Tablet(s) PO daily 03/02/2017 03/06/2017 Inactive prednisone 20 mg tablet RxNorm: 171083 2 Tablet(s) PO daily 03/02/2017 03/01/2017 Inactive Zithromax Z-Surya 250 mg tablet RxNorm: 453558 1 Tablet(s) PO UD 02/24/2017 03/21/2017 Inactive Kenalog 40 mg/mL suspension for injection RxNorm: 0496210 1 Milliliter(s) Inj 02/24/2017 02/24/2017 Inactive Zyrtec-D 5 mg-120 mg tablet,extended release RxNorm: 2841293 1 Tablet(s) PO BID as needed 02/05/2017 05/10/2017 Inactive Zyrtec-D 5 mg-120 mg tablet,extended release RxNorm: 1773434 1 Tablet(s) PO BID as needed 12/01/2016 02/04/2017 Inactive Zyrtec-D 5 mg-120 mg tablet,extended release RxNorm: 4062799 1 Tablet(s) PO BID as needed 11/03/2016 11/30/2016 Inactive Zyrtec-D 5 mg-120 mg tablet,extended release RxNorm: 4356409 1 Tablet(s) PO BID as needed 10/09/2016 11/02/2016 Inactive Kenalog 40 mg/mL suspension for injection RxNorm: 4878737 1 Milliliter(s) Inj 09/16/2016 09/16/2016 Inactive Levaquin 500 mg tablet RxNorm: 462547 1 Tablet(s) PO daily 09/15/2016 09/24/2016 Inactive Levaquin 500 mg tablet RxNorm: 984781 1 Tablet(s) PO daily 09/15/2016 09/14/2016 Inactive prednisone 20 mg tablet RxNorm: 576703 1 Tablet(s) PO BID 09/15/2016 09/19/2016 Inactive amoxicillin 500 mg tablet RxNorm: 178578 1 Tablet(s) PO BID 08/20/2016 08/29/2016 Inactive Augmentin 875 mg-125 mg tablet RxNorm: 349262 1 Tablet(s) PO BID 04/23/2016 04/28/2016 Inactive Zyrtec-D 5 mg-120 mg tablet,extended release RxNorm: 1196907 1 Tablet(s) PO BID as needed 01/31/2016 10/08/2016 Inactive Flonase 50 mcg/actuation nasal spray,suspension RxNorm: 0175525 1 [place] NASAL BID 01/08/2016 01/22/2016 Inactive Flonase 50 mcg/actuation nasal spray,suspension RxNorm: 2422536 1 [place] NASAL BID 01/08/2016 01/07/2016 Inactive 1 spray each nare x 5 days Zithromax Z-Surya 250 mg tablet RxNorm: 309584 Tablet(s) PO 01/08/2016 01/30/2016 Inactive Zyrtec-D 5 mg-120 mg tablet,extended release RxNorm: 7851916 1 Tablet(s) PO BID as needed 01/08/2016 01/30/2016 Inactive Augmentin 875 mg-125 mg tablet RxNorm: 703571 1 Tablet(s) PO BID 10/08/2015 10/17/2015 Inactive Augmentin 875 mg-125 mg tablet RxNorm: 935484 1 Tablet(s) PO BID 10/08/2015 10/07/2015 Inactive prednisone 20 mg tablet RxNorm: 535119 1 Tablet(s) PO BID 08/01/2015 08/05/2015 Inactive prednisone 20 mg tablet RxNorm: 881118 1 Tablet(s) PO BID 08/01/2015 07/31/2015 Inactive Kenalog 40 mg/mL suspension for injection RxNorm: 4727787 Milliliter(s) Inj 07/30/2015 07/30/2015 Inactive Zyrtec-D 5 mg-120 mg tablet,extended release RxNorm: 5825510 1 Tablet(s) PO BID as needed 07/30/2015 01/07/2016 Inactive Augmentin 875 mg-125 mg tablet RxNorm: 054667 1 Tablet(s) PO BID 07/30/2015 08/05/2015 Inactive Kenalog 40 mg/mL suspension for injection RxNorm: 6116682 1 Milliliter(s) Inj 03/22/2015 03/22/2015 Inactive Flonase 50 mcg/actuation Nasal [place] RxNorm: 7805925 1 [place] NASAL 07/12/2012 07/11/2012 Inactive 1 spray each nare x 5 days Flonase 50 mcg/actuation Nasal [place] RxNorm: 3717660 1 [place] NASAL 07/12/2012 07/16/2012 Inactive 1 spray each nare x 5 days cefdinir 300 mg capsule RxNorm: 230070 1 Capsule(s) PO BID 07/12/2012 07/18/2012 Inactive cefdinir 300 mg capsule RxNorm: 761107 1 Capsule(s) PO BID 07/12/2012 07/11/2012 Inactive Tamiflu 75 mg capsule RxNorm: 509944 1 Capsule(s) PO BID 06/20/2012 06/24/2012 Inactive Tamiflu 75 mg capsule RxNorm: 839487 1 Capsule(s) PO BID 06/20/2012 06/19/2012 Inactive Diflucan 150 mg tablet RxNorm: 298613 1 Tablet(s) PO daily 04/21/2012 05/04/2012 Inactive nystatin 100,000 unit/g Topical Cream RxNorm: 028883 1 Application TOP TID 04/13/2012 05/02/2012 Inactive one application to groin tid Diflucan 150 mg tablet RxNorm: 386752 1 Tablet(s) PO daily 04/04/2012 04/06/2012 Inactive nystatin 100,000 unit/g Topical Cream RxNorm: 161077 1 Application TOP TID 04/04/2012 04/03/2012 Inactive one application to groin tid x 10 day nystatin 100,000 unit/g Topical Cream RxNorm: 115758 1 Application TOP TID 04/04/2012 04/12/2012 Inactive one application to groin tid x 10 day Diflucan 150 mg tablet RxNorm: 570092 1 Tablet(s) PO daily 03/23/2012 03/22/2012 Inactive Diflucan 150 mg tablet RxNorm: 124175 1 Tablet(s) PO daily 03/23/2012 03/29/2012 Inactive Rocephin 1 gram Solution for Injection RxNorm: 5336623 Inj 03/18/2012 03/18/2012 Inactive Augmentin 500 mg-125 mg tablet RxNorm: 861075 1 Tablet(s) PO TID 03/11/2012 03/10/2012 Inactive Augmentin 500 mg-125 mg tablet RxNorm: 129242 1 Tablet(s) PO TID 03/11/2012 03/17/2012 Inactive Kenalog 40 mg/mL Susp for Injection RxNorm: 0765400 1 Milliliter(s) Inj 07/02/2011 07/02/2011 Inactive Rocephin 500 mg Solution for Injection RxNorm: 0931755 1 Milliliter(s) Inj 07/02/2011 07/02/2011 Inactive Bactrim DS 800 mg-160 mg Tab RxNorm: 474930 1 Tablet(s) PO BID 06/30/2011 07/09/2011 Inactive multivitamin Oral RxNorm: Oral No Start Date Active omeprazole 40 mg Cap, Delayed Release RxNorm: 194810 1 Capsule(s) PO PRN No Start Date Active Yuridia-D 12 Hour 60 mg-120 mg tablet,extended release RxNorm: 882044 1 Tablet(s) PO BID No Start Date 12/05/2017 Inactive Zithromax 500 mg tablet RxNorm: 049490 2 Tablet(s) PO daily No Start Date 01/30/2016 Inactive Aspirin For Children 81 mg Chewable Tab RxNorm: 840916 1 Tablet(s) PO daily No Start Date 08/07/2018 Inactive Zyrtec-D 5 mg-120 mg 12 hr Tab RxNorm: 2363659 1 Tablet(s) PO daily No Start Date 07/29/2015 Inactive Medication Administered Medication Codes Instructions Start Date Status Kenalog 40 mg/mL suspension for injection RxNorm: 8247558 1Millil[place] 04/05/2017 No longer Active Kenalog 40 mg/mL suspension for injection RxNorm: 8078917 1Milliliter 02/24/2017 No longer Active Kenalog 40 mg/mL suspension for injection RxNorm: 2986346 1[place]il[place] 09/16/2016 No longer Active Kenalog 40 mg/mL suspension for injection RxNorm: 6115465 [place] 07/30/2015 No longer Active Kenalog 40 mg/mL suspension for injection RxNorm: 0448081 1Millil[place] 03/22/2015 No longer Active Rocephin 1 gram Solution for Injection RxNorm: 0340386 03/18/2012 No longer Active Rocephin 500 mg Solution for Injection RxNorm: 2422054 1[place]il[place] 07/02/2011 No longer Active Kenalog 40 mg/mL Susp for Injection RxNorm: 7382156 1Milliliter 07/02/2011 No longer Active Immunizations Vaccine Codes Date Status Tetanus, Diptheria, Pertussis Unknown 05/23/2010 completed Assessments Condition Codes Effective Dates Candidiasis of skin and nail ICD-10: B37.2 [...] Visit Reason For Visit Effective Dates Notes penile pain and discharge 08/08/2018 dysuria 06/28/2018 [...] Item Item Code Result Date Comp Metabolic Lgs949 NA 139 mEq/L 03/15/2018 Comp Metabolic Ccx789 K 4.2 mEq/L 03/15/2018 Comp Metabolic Ygu321 CL 101 mEq/L 03/15/2018 Comp Metabolic Wpz340 CO2 32.0 mEq/L 03/15/2018 Comp Metabolic Vgi840 ANION GAP 10 03/15/2018 Comp Metabolic Onq207 GLUCOSE 94 mg/dL 03/15/2018 Comp Metabolic Thk396 Creat 0.9 mg/dL 03/15/2018 Comp Metabolic Lxk114 eGFR 104 ml/min/1.73m2 03/15/2018 Comp Metabolic Kvt435 BUN 14 mg/dL 03/15/2018 Comp Metabolic Ykg448 B/C Ratio 16.3 Ratio 03/15/2018 Comp Metabolic Pch275 CALCIUM 9.8 mg/dL 03/15/2018 Comp Metabolic Ket135 ALK PHOS 75 U/L 03/15/2018 Comp Metabolic Rur342 AST(SGOT) 20 U/L 03/15/2018 Comp Metabolic Wyy968 ALT(SGPT) 30 U/L 03/15/2018 Comp Metabolic Wdl610 BILI T 1.2 mg/dL 03/15/2018 Comp Metabolic Hba630 ALBUMIN 4.7 g/dL 03/15/2018 Comp Metabolic Esn979 TPRO 7.2 g/dL 03/15/2018 Comp Metabolic Ndr446 GLOB 2.5 g/dL 03/15/2018 Comp Metabolic Azo222 A/G Ratio 1.9 Ratio 03/15/2018 Comp Metabolic Qxj118 Osmo 278 mOsmo 03/15/2018 Urine Culture Ucult [...] if culture needed 01/04/2018 Hepatitis Panel (Abc) 58821 HEPATITIS B SURFACE AG . 12/09/2017 Hepatitis Panel (Abc) 98938 HEPATITIS B SURFACE AG NEGATIVE 12/09/2017 Hepatitis Panel (Abc) 58678 HEPATITIS B CORE AB, IGM . 12/09/2017 Hepatitis Panel (Abc) 82637 HEPATITIS B CORE AB, IGM NEGATIVE 12/09/2017 Hepatitis Panel (Abc) 90231 HEPATITIS A AB, IGM . 12/09/2017 Hepatitis Panel (Abc) 70421 HEPATITIS A AB, IGM NEGATIVE 12/09/2017 Hepatitis Panel (Abc) 43218 HEPATITIS C ANTIBODY . 12/09/2017 Hepatitis Panel (Abc) 54400 HEPATITIS C ANTIBODY NEGATIVE 12/09/2017 Tsh Ord6 TSH (3rd IS) 2.24 uIU/mL 11/29/2017 Comp Metabolic Ppv903 NA 138 mEq/L 11/29/2017 Comp Metabolic Spm888 K 4.1 mEq/L 11/29/2017 Comp Metabolic Hdc539 CL 101 mEq/L 11/29/2017 Comp Metabolic Mjl752 CO2 30.0 mEq/L 11/29/2017 Comp Metabolic Cig390 ANION GAP 11 11/29/2017 Comp Metabolic Biy642 GLUCOSE 89 mg/dL 11/29/2017 Comp Metabolic Tas572 Creat 0.8 mg/dL 11/29/2017 Comp Metabolic Eui643 eGFR 107 ml/min/1.73m2 11/29/2017 Comp Metabolic Kvz695 BUN 15 mg/dL 11/29/2017 Comp Metabolic Wyh976 B/C Ratio 17.9 Ratio 11/29/2017 Comp Metabolic Ukn976 CALCIUM 9.4 mg/dL 11/29/2017 Comp Metabolic Bmy827 ALK PHOS 71 U/L 11/29/2017 Comp Metabolic Hvc927 AST(SGOT) 19 U/L 11/29/2017 Comp Metabolic Sje040 ALT(SGPT) 27 U/L 11/29/2017 Comp Metabolic Ojx197 BILI T 1.8 mg/dL 11/29/2017 Comp Metabolic Mlc264 ALBUMIN 4.4 g/dL 11/29/2017 Comp Metabolic Yqi756 TPRO 6.8 g/dL 11/29/2017 Comp Metabolic Zcd489 GLOB 2.5 g/dL 11/29/2017 Comp Metabolic Jnd802 A/G Ratio 1.8 Ratio 11/29/2017 Comp Metabolic Tap162 Osmo 276 mOsmo 11/29/2017 Urine Culture Ucult [...] 27.4 pg 11/29/2017 Cbc With Differential Ord2 [place]% 8.3 % 11/29/2017 Cbc With Differential Ord2 [...] 3.16 K/ul 11/29/2017 Cbc With Differential Ord2 [place] ABS# 0.7 K/ul 11/29/2017 Cbc With Differential Ord2 Eos ABS# 0.2 K/ul 11/29/2017 Cbc With Differential Ord2 Baso ABS# 0.0 K/ul 11/29/2017 C RAP A SC 2089122 Strep A Negative 08/20/2016 GC/CHL PRB 8083410 SOURCE CASSANDRA UNKNOWN 03/19/2012 GC/CHL PRB 8972728 CHLM PROBE NEG 03/19/2012 GC/CHL PRB 4465575 GC PROBE NEG 03/19/2012 URINALYSIS NONAUTO W/O SCOPE 81849 Specific [place] 1.010 DateTime(Free Text in Aprima) URINALYSIS NONAUTO W/O SCOPE 38390 PH 6.5 DateTime(Free Text in Aprima) URINALYSIS NONAUTO W/O SCOPE 81674 GLUCOSE neg DateTime(Free Text in Aprima) URINALYSIS NONAUTO W/O SCOPE 91559 Protein neg DateTime(Free Text in Aprima) URINALYSIS NONAUTO W/O SCOPE 36499 Blood neg DateTime(Free Text in Aprima) URINALYSIS NONAUTO W/O SCOPE 29585 Bilirubin neg DateTime(Free Text in Aprima) URINALYSIS NONAUTO W/O SCOPE 75822 Ketones neg DateTime(Free Text in Aprima) URINALYSIS NONAUTO W/O SCOPE 19018 Urobilinogen neg DateTime(Free Text in Aprima) URINALYSIS NONAUTO W/O SCOPE 34270 Nitrite neg DateTime(Free Text in Aprima) URINALYSIS NONAUTO W/O SCOPE 01861 Leukocytes neg DateTime(Free Text in Aprima) Review of Systems System Result Effective Dates Constitutional No recent illness 08/08/2018 Constitutional No [...] time 03/09/2011 None Full Exam - General 1995 Psychiatric mood and affect Overall: normal mood [...] Codes Date URINALYSIS NONAUTO W/O SCOPE CPT-4: 66965 06/28/2018 TRIAMCINOLONE ACET INJ NOS CPT-4: J3301 04/05/2017 TRIAMCINOLONE ACET INJ NOS CPT-4: J3301 02/24/2017 THER/PROPH/DIAG INJ SC/IM CPT-4: 64078 09/16/2016 TRIAMCINOLONE ACET INJ NOS CPT-4: J3301 09/16/2016 TRIAMCINOLONE ACET INJ NOS CPT-4: J3301 07/30/2015 TRIAMCINOLONE ACET INJ NOS CPT-4: J3301 03/22/2015 ROCEPHIN, PER 250 MG CPT- 4: J0696 03/18/2012 URINALYSIS NONAUTO W/O SCOPE CPT-4: 59323 03/17/2012 ROCEPHIN, PER 250 MG CPT- 4: J0696 06/30/2011 TRIAMCINOLONE ACET INJ NOS CPT-4: J3301 06/30/2011 Vital Signs Date Vital 08/08/2018 Blood Pressure 1: 122/80 Code: 8480-6 Heart Rate 1: 84 bpm Height: 6'2" SpO2: 98% 06/28/2018 Blood Pressure 1: 122/82 Code: 8480-6 BMI: 24.0 Code: 17091-8 Heart Rate 1: 91 bpm Height: 6'2" SpO2: 98% Weight: 187 lbs 02/22/2018 Blood Pressure 1: 110/80 Code: 8480-6 Heart Rate 1: 74 bpm Height: 6'2" SpO2: 98% Weight: 02/16/2018 Blood Pressure 1: 130/72 Code: 8480-6 BMI: 24.0 Code: 10151-5 Heart Rate 1: 82 bpm Height: 6'2" SpO2: 97% Weight: 187 lbs 12/20/2017 Blood Pressure 1: 128/88 Code: 8480-6 BMI: 23.1 Code: 00274-2 Heart Rate 1: 86 bpm Height: 6'2" SpO2: 98% Weight: 180 lbs 11/26/2017 Blood Pressure 1: 122/80 Code: 8480-6 BMI: 23.1 Code: 18523-3 Heart Rate 1: 56 bpm Height: 6'2" SpO2: 98% Weight: 180 lbs 07/21/2017 Blood Pressure 1: 120/78 Code: 8480-6 BMI: 21.8 Code: 05525-0 Heart Rate 1: 88 bpm Height: 6'2" SpO2: 97% Weight: 170 lbs 04/05/2017 Blood Pressure 1: 126/68 Code: 8480-6 BMI: 22.6 Code: 73846-5 Heart Rate 1: 80 bpm Height: 6'2" SpO2: 98% Weight: 176 lbs 03/22/2017 Blood Pressure 1: 120/72 Code: 8480-6 BMI: 22.5 Code: 55614-0 Heart Rate 1: 82 bpm Height: 6'2" SpO2: 98% Temperature: 36.8 (C) / 98.3 (F) Weight: 175 lbs 02/24/2017 Blood Pressure 1: 120/62 Code: 8480-6 BMI: 22.5 Code: 77918-4 Heart Rate 1: 84 bpm Height: 6'2" SpO2: 98% Weight: 175 lbs 08/20/2016 Blood Pressure 1: 126/78 Code: 8480-6 BMI: 24.1 Code: 12308-4 Heart Rate 1: 84 bpm Height: 6'2" SpO2: 98% Temperature: 37.1 (C) / 98.8 (F) Weight: 188 lbs 06/10/2016 Blood Pressure 1: 124/62 Code: 8480-6 BMI: 24.4 Code: 45459-9 Heart Rate 1: 85 bpm Height: 6'2" SpO2: 98% Weight: 190 lbs 02/07/2016 Blood Pressure 1: 128/72 Code: 8480-6 BMI: 23.6 Code: 10815-7 Heart Rate 1: 78 bpm Height: 6'2" SpO2: 96% Weight: 184 lbs 01/08/2016 Blood Pressure 1: 108/70 Code: 8480-6 BMI: 23.4 Code: 67908-2 Heart Rate 1: 84 bpm Height: 6'2" SpO2: 96% Weight: 182 lbs 07/30/2015 Blood Pressure 1: 110/64 Code: 8480-6 BMI: 22.6 Code: 60755-1 Heart Rate 1: 78 bpm Height: 6'2" SpO2: 98% Weight: 176 lbs 03/22/2015 Blood Pressure 1: 126/80 Code: 8480-6 BMI: 24.0 Code: 41047-1 Heart Rate 1: 76 bpm Height: 6'2" SpO2: 98% Weight: 187 lbs 06/20/2012 Blood Pressure 1: 110/76 Code: 8480-6 Heart Rate 1: 100 bpm Temperature: 38.7 (C) / 101.7 (F) Weight: 169 lbs 03/18/2012 Blood Pressure 1: 132/70 Code: 8480-6 Heart Rate 1: 80 bpm Weight: 160 lbs 06/30/2011 Blood Pressure 1: 110/72 Code: 8480-6 BMI: 23.9 Code: 45213-4 Heart Rate 1: 72 bpm Height: 6'2" Respiratory Rate: 20 bpm Weight: 186 lbs 03/09/2011 Blood Pressure 1: 96/58 Code: 8480-6 BMI: 23.2 Code: 60457- 5 Heart Rate 1: 80 bpm Height: 6'2" Respiratory Rate: 16 bpm Weight: 183 lbs 01/12/2011 Blood Pressure 1: 126/80 Code: 8480-6 BMI: 23.5 Code: 39982-9 Heart Rate 1: 82 bpm Height: 6'2" Respiratory Rate: 16 bpm Weight: 183 lbs Functional Status No Functional Status data History of Present Illness Symptom Name Status Result Effective Date Notes Quality acute 08/08/2018 None Onset and Resolution [...] 04/05/2017 None rash Location-Head/Neck on the left anabaptist 04/05/2017 None rash Location-Head/Neck on the forehead [...] Encounters Encounter Performer Location Codes Date () 84154 EST. PATIENT, LEVEL III Diagnosis: Candidiasis of skin and nail[ICD10: B37.2] Gin Riggs MD, [facility] CPT-4: 20685 08/08/2018 ([id number]) 42410 EST. 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 PATIENT, LEVEL III Diagnosis: Dysuria[ICD10: R30.0] Cherry Riggs MD, [facility] CPT-4: 82138 02/16/2018 ([id number]) 59011 EST. PATIENT, LEVEL III Diagnosis: Pain in left knee[ICD10: M25.562] Gin Riggs MD, [facility] CPT- 4: 74646 12/20/2017 ([id number]) PREV VISIT EST AGE 40-64 Diagnosis: Encounter for general adult medical examination without abnormal findings[ICD10: Z00.00] Diagnosis: Dysuria[ICD10: R30.0] Diagnosis: Other allergic rhinitis[ICD10: J30.89] Gin Riggs MD, [facility] CPT-4: 82487 11/26/2017 30203 EST. PATIENT, LEVEL IV Diagnosis: Other acute sinusitis[ICD10: J01.80] Diagnosis: Other allergic rhinitis[ICD10: J30.89] Cherry Riggs MD, [facility] CPT- 4: 02202 07/21/2017 43879 EST. PATIENT, LEVEL IV Diagnosis: Allergic contact dermatitis due to plants, except food[ICD10: L23.7] Cherry Riggs MD, [facility] CPT-4: 45596 04/05/2017 ([id number]) 32256 EST. PATIENT, LEVEL III Diagnosis: Acute recurrent maxillary sinusitis[ICD10: J01.01] Gin Riggs MD [facility] CPT-4: 45217 03/22/2017 04109 EST. PATIENT, LEVEL IV Diagnosis: Other acute sinusitis[ICD10: J01.80] Diagnosis: Other allergic rhinitis[ICD10: J30.89] Cherry Riggs MD, [facility] CPT- 4: 94636 02/24/2017 ([id number]) 00860 EST. PATIENT, LEVEL III Diagnosis: Acute laryngopharyngitis[ICD10: J06.0] Gin Riggs MD [facility] CPT-4: 03275 08/20/2016 24005 EST. PATIENT, LEVEL III Diagnosis: Pain in right shoulder[ICD10: M25.511] Cherry Riggs MD, [facility] CPT- 4: 37142 06/10/2016 ([id number]) 30645 EST. PATIENT, LEVEL II Diagnosis: Melanocytic nevi, unspecified[ICD10: D22.9] Gin Riggs MD, [facility] CPT-4: 93033 02/07/2016 18495 EST. PATIENT, LEVEL III Diagnosis: Other acute sinusitis[ICD10: J01.80] Diagnosis: Other allergic rhinitis[ICD10: J30.89] Cherry Riggs MD, [facility] CPT- 4: 60339 01/08/2016 ([id number]) 81901 EST. PATIENT, LEVEL III Diagnosis: Acute recurrent maxillary sinusitis[ICD10: J01.01] Gin Riggs MD, [facility] CPT-4: 41932 07/30/2015 ([id number]) PREV VISIT EST AGE 18-39 Diagnosis: Encounter for general adult medical examination without abnormal findings[ICD10: Z00.00] Diagnosis: Allergic rhinitis, unspecified[ICD10: J30.9] Gin Riggs MD, [facility] CPT-4: 04416 03/22/2015 ([id number]) 70090 EST. PATIENT, LEVEL III Diagnosis: Influenza[ICD9: 487.1] Gin Riggs MD, [facility] CPT-4: 21570 06/20/2012 [id number] EST. PATIENT, LEVEL II Diagnosis: DYSURIA[ICD9: 788.1] Diagnosis: Screen for sexually transmitted diseases[ICD9: V74.5] Gin Riggs MD, [facility] CPT-4: 55803 03/18/2012 ([id number]) 53741 EST. PATIENT, LEVEL III Diagnosis: ACUTE SINUSITIS[ICD9: 461.9] Gin Riggs MD, [facility] CPT-4: 07820 06/30/2011 [id number] EST. PATIENT, LEVEL IV Diagnosis: ESOPHAGEAL REFLUX[ICD9: 530.81] Diagnosis: Constipation[ICD9: 564.00] Claire Riggs MD, [facility] CPT-4: 13121 03/09/2011 OFFICE VISIT, NEW - LEVEL 3 Diagnosis: Encounter for annual health examination[ICD9: V70.0] Diagnosis: Esophageal reflux[ICD9: 530.81] Claire Riggs MD, [facility] CPT-4: 65319 01/12/2011 Plan of Care Planned Activity Notes Codes Status Date Visit Plan: Yeast infection -patient's was positive for yeast infection -will treat patient with diflucan -instructed him to call if symptoms do not resolve and we will re-evaluate or send to urologist for cheryl luation -patient verbalized understanding of plan. 08/08/2018 Appointment: Gin Dooley WPtel: [address] [place], [place] [phone] (30 min) Complex 08/08/2018 Patient Education: Patient Medication Summary Completed 08/08/2018 Visit Plan: Dysuria -irritation -UA negative-recommend patient switch to unscented soap/lotion -monitor symptoms and call if they do no resolve Varicocele -check semen analysis 06/28/2018 Appointment: Gin Dooley WPtel: [address] [place], [place] [phone] (30 min) Complex 06/28/2018 Patient Education: Patient Medication Summary Completed 06/28/2018 Patient Education: Patient Medication Summary Completed 03/15/2018 Visit Plan: Varicocele-grade 3 -discussed with Dr Riggs - start an aspirin daily - discussed anti inflammatories, supportive underwear and to call if symptoms do not resolve or if any worse. Patient verbalized understanding of plan. 02/22/2018 Appointment: Gin Dooley WPtel: [facility] [place] [address] [phone] (15 min) Moderate 02/22/2018 Patient Education: [...] to urology 02/16/2018 Appointment: Cherry Wagoner WPtel: [facility] [place] (15 min) Moderate 02/16/2018 Patient Education: Patient Medication Summary Completed 02/16/2018 Patient Education: Patient Medication Summary Completed 01/03/2018 Visit Plan: Left knee pain -suspect meniscal injury -will xray knee today and then schedule MRI for further evaluation -discussed rest, ice and anti inflammatories as directed 12/20/2017 Appointment: Gin Dooley WPtel: [phone] [place] (15 min) Moderate 12/20/2017 Patient Education: Patient Medication Summary Completed 12/20/2017 Care Plan: X-RAY EXAM OF KNEE 3 LOINC : [id number] Pending 12/20/2017 Visit Plan: Well Adult - [...] improve. 11/26/2017 Appointment: Gin Dooley WPtel: [phone] [place] [phone] (15 min) Moderate 11/26/2017 Patient Education: Patient [...] allergy spray. 07/21/2017 Appointment: Cherry Wagoner WPtel: [facility] (15 min) Moderate 07/21/2017 Patient Education: Patient Medication Summary Completed 07/21/2017 Visit Plan: Poison Ruthy - pt is to use topical treatments as directed. Pt is cleanse clothing in hot water with soap, and call if symptoms do not improve or if they worsen. 04/05/2017 Appointment: Cherry Wagoner WPtel: [phone] (10 min) Simple 04/05/2017 Patient Education: Patient [...] allergy spray. 03/22/2017 Appointment: Gin Dooley WPtel: [phone] (15 min) Moderate 03/22/2017 Patient Education: [...] allergy spray. 02/24/2017 Appointment: Cherry Wagoner WPtel: [phone] (15 min) Moderate 02/24/2017 Patient Education: Patient [...] for fever/discomfort. 08/20/2016 Appointment: Gin Dooley WPtel: [phone] [phone] (10 min) Simple 08/20/2016 Patient Education: [...] to Dr Greene for evaluation 02/07/2016 Appointment: Gni Dooley WPtel: [phone] [phone] (30 min) Complex 02/07/2016 Patient Education: Patient Medication Summary Completed 02/07/2016 Care Plan: Referral Order SNOMED-CT : [id number] Pending 02/07/2016 Visit Plan: Sinusitis - Pt [...] the office 03/22/2015 Appointment: Gin Dooley WPtel: [facility] Physical 03/22/2015 Patient Education: Patient Medication Summary [...] any worse. 06/20/2012 Appointment: Gin Dooley WPtel: [address] [place], [place] [phone] [facility] 06/20/2012 Patient Education: Patient Medication Summary Completed [...] of testing. 03/18/2012 Appointment: Gin Dooley WPtel: [facility] [place] [phone] [facility] 03/18/2012 Patient Education: Patient Medication Summary Completed 03/18/2012 Appointment: Claire Riggs WPtel: [phone] [facility] Lab Draw 03/17/2012 Patient Education: Patient Medication [...] not resolve. 06/30/2011 Appointment: Gin Dooley WPtel: [phone] Other 06/30/2011 Patient Education: Patient Medication Summary [...] at 3:30pm. 03/09/2011 Appointment: Claire Riggs WPtel: [phone] [phone] Other 03/09/2011 Patient Education: Patient Medication Summary [...] exercise program. 01/12/2011 Appointment: Claire Riggs WPtel: [address] [place], [place] [id number] [place] New Patient 01/12/2011 Patient Education: Patient [...] for an antibiotic nasal spray compound that [facility] pharmacy makes . Sinusitis - Pt has [...] expected course, or if any worse. . Varicocele-grade 3 -discussed with Dr Riggs -start an aspirin daily - discussed anti inflammatories, supportive underwear and to call if symptoms do not resolve or if any worse. Patient verbalized understanding of plan.
--- OUTSIDE RECORDS SUMMARY | 2018-11-22 07:11 | XMS REPORT | CCD ---
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 Name Role Phone Claire Riggs PP Unavailable CCM Unavailable Summary Purpose Interface Exchange Insurance Providers Payer name Policy type / Coverage type Covered green party ID Effective Begin Date Effective End Date Blue Cross Blue [facility] Blue Cross/Blue [facility] [id number] Unknown Family history Mother Diagnosis Age At Onset Cancer Unknown Brother Diagnosis Age At Onset No Family Disease Entered N/A Grandmother Diagnosis Age At Onset Cancer Unknown Father Diagnosis Age At Onset No Family Disease Entered N/A Social History Social History Element Codes Description Effective Dates Marital status Unknown 01/12/2011 Employment Unknown 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 Unknown Has never used illegal drugs 01/12/2011 Allergies, Adverse Reactions, Alerts Substance Reaction Codes Entered Date Inactivated Date Status * NO KNOWN FOOD ALLERGIES Unknown 01/12/2011 No Inactive Date Active bactrim RxNorm: 818474 03/22/2015 No Inactive Date Active Past Medical [...] Start Date Stop Date Status Fill Instructions fluconazole 150 mg tablet RxNorm: 264212 1 Tablet(s) PO daily 08/08/2018 08/14/2018 Active omeprazole 20 mg capsule,delayed release RxNorm: 202086 1 Capsule(s) PO daily 06/28/2018 10/25/2018 Active Flonase 50 mcg/actuation nasal spray,suspension RxNorm: 0115743 1 [place] NASAL BID 06/22/2018 No Stop Date Active Zyrtec-D 5 mg-120 mg tablet,extended release RxNorm: 5494046 1 Tablet(s) PO BID as needed 06/22/2018 No Stop Date Active Augmentin 875 mg-125 mg tablet RxNorm: 011135 1 Tablet(s) PO BID 06/02/2018 06/08/2018 Inactive Zithromax Z-Surya 250 mg tablet RxNorm: 080890 1 Tablet(s) PO UD 03/24/2018 06/01/2018 Inactive Flonase 50 mcg/actuation nasal spray,suspension RxNorm: 1725121 1 [place] NASAL BID 03/01/2018 06/21/2018 Inactive Cipro 500 mg tablet RxNorm: 935780 1 Tablet(s) PO BID 02/16/2018 02/25/2018 Inactive Diflucan 150 mg tablet RxNorm: 610424 1 Tablet(s) PO daily start after cipro is finished 02/16/2018 02/22/2018 Inactive Augmentin 875 mg-125 mg tablet RxNorm: 310377 1 Tablet(s) PO BID 12/24/2017 12/23/2017 Inactive Augmentin 875 mg-125 mg tablet RxNorm: 358841 1 Tablet(s) PO BID 12/24/2017 12/30/2017 Inactive Keflex 500 mg capsule RxNorm: 076203 1 Capsule(s) PO TID 12/08/2017 12/14/2017 Inactive Yuridia-D 12 Hour 60 mg-120 mg tablet,extended release RxNorm: 003462 1 Tablet(s) PO BID 12/06/2017 No Stop Date Active Keflex 500 mg capsule RxNorm: 558266 1 Capsule(s) PO TID 11/26/2017 12/02/2017 Inactive Flonase 50 mcg/actuation nasal spray,suspension RxNorm: 7182085 1 [place] NASAL BID 11/15/2017 02/28/2018 Inactive Yuridia Allergy 180 mg tablet RxNorm: 549735 1 Tablet(s) PO daily 10/27/2017 10/27/2017 Inactive Zyrtec-D 5 mg-120 mg tablet,extended release RxNorm: 0904163 1 Tablet(s) PO BID as needed 10/20/2017 06/21/2018 Inactive Yuridia Allergy 180 mg tablet RxNorm: 304728 1 Tablet(s) PO daily 09/21/2017 10/20/2017 Inactive Augmentin 500 mg-125 mg tablet RxNorm: 481515 1 Tablet(s) PO TID 07/21/2017 07/30/2017 Inactive Yuridia Allergy 180 mg tablet RxNorm: 491906 1 Tablet(s) PO daily 07/21/2017 08/19/2017 Inactive Zyrtec-D 5 mg-120 mg tablet,extended release RxNorm: 2356182 1 Tablet(s) PO BID as needed 06/15/2017 10/19/2017 Inactive Zyrtec-D 5 mg-120 mg tablet,extended release RxNorm: 3697218 1 Tablet(s) PO BID as needed 05/11/2017 02/21/2018 Inactive prednisone 10 mg tablet RxNorm: 511945 Tablet(s) PO 04/05/2017 12/07/2017 Inactive 6,5,4,3,2,1 Kenalog 40 mg/mL suspension for injection RxNorm: 3920932 1 Millil[place](s) Inj 04/05/2017 04/05/2017 Inactive Flonase 50 mcg/actuation nasal spray,suspension RxNorm: 2031062 1 [place] NASAL BID 04/01/2017 11/14/2017 Inactive Augmentin 875 mg-125 mg tablet RxNorm: 875544 1 Tablet(s) PO BID 03/22/2017 03/28/2017 Inactive prednisone 20 mg tablet RxNorm: 008169 2 Tablet(s) PO daily 03/02/2017 03/06/2017 Inactive prednisone 20 mg tablet RxNorm: 181122 2 Tablet(s) PO daily 03/02/2017 03/01/2017 Inactive Zithromax Z-Surya 250 mg tablet RxNorm: 811859 1 Tablet(s) PO UD 02/24/2017 03/21/2017 Inactive Kenalog 40 mg/mL suspension for injection RxNorm: 8595250 1 Milliliter(s) Inj 02/24/2017 02/24/2017 Inactive Zyrtec-D 5 mg-120 mg tablet,extended release RxNorm: 6181366 1 Tablet(s) PO BID as needed 02/05/2017 05/10/2017 Inactive Zyrtec-D 5 mg-120 mg tablet,extended release RxNorm: 5344739 1 Tablet(s) PO BID as needed 12/01/2016 02/04/2017 Inactive Zyrtec-D 5 mg-120 mg tablet,extended release RxNorm: 2427179 1 Tablet(s) PO BID as needed 11/03/2016 11/30/2016 Inactive Zyrtec-D 5 mg-120 mg tablet,extended release RxNorm: 0921445 1 Tablet(s) PO BID as needed 10/09/2016 11/02/2016 Inactive Kenalog 40 mg/mL suspension for injection RxNorm: 5557589 1 Milliliter(s) Inj 09/16/2016 09/16/2016 Inactive Levaquin 500 mg tablet RxNorm: 905940 1 Tablet(s) PO daily 09/15/2016 09/24/2016 Inactive Levaquin 500 mg tablet RxNorm: 471064 1 Tablet(s) PO daily 09/15/2016 09/14/2016 Inactive prednisone 20 mg tablet RxNorm: 441695 1 Tablet(s) PO BID 09/15/2016 09/19/2016 Inactive amoxicillin 500 mg tablet RxNorm: 528780 1 Tablet(s) PO BID 08/20/2016 08/29/2016 Inactive Augmentin 875 mg-125 mg tablet RxNorm: 224884 1 Tablet(s) PO BID 04/23/2016 04/28/2016 Inactive Zyrtec-D 5 mg-120 mg tablet,extended release RxNorm: 4801946 1 Tablet(s) PO BID as needed 01/31/2016 10/08/2016 Inactive Flonase 50 mcg/actuation nasal spray,suspension RxNorm: 6653947 1 [place] NASAL BID 01/08/2016 01/22/2016 Inactive Flonase 50 mcg/actuation nasal spray,suspension RxNorm: 6556383 1 [place] NASAL BID 01/08/2016 01/07/2016 Inactive 1 spray each nare x 5 days Zithromax Z-Surya 250 mg tablet RxNorm: 449210 Tablet(s) PO 01/08/2016 01/30/2016 Inactive Zyrtec-D 5 mg-120 mg tablet,extended release RxNorm: 5113778 1 Tablet(s) PO BID as needed 01/08/2016 01/30/2016 Inactive Augmentin 875 mg-125 mg tablet RxNorm: 124542 1 Tablet(s) PO BID 10/08/2015 10/17/2015 Inactive Augmentin 875 mg-125 mg tablet RxNorm: 926612 1 Tablet(s) PO BID 10/08/2015 10/07/2015 Inactive prednisone 20 mg tablet RxNorm: 003791 1 Tablet(s) PO BID 08/01/2015 08/05/2015 Inactive prednisone 20 mg tablet RxNorm: 144068 1 Tablet(s) PO BID 08/01/2015 07/31/2015 Inactive Kenalog 40 mg/mL suspension for injection RxNorm: 3640410 Milliliter(s) Inj 07/30/2015 07/30/2015 Inactive Zyrtec-D 5 mg-120 mg tablet,extended release RxNorm: 9624230 1 Tablet(s) PO BID as needed 07/30/2015 01/07/2016 Inactive Augmentin 875 mg-125 mg tablet RxNorm: 211294 1 Tablet(s) PO BID 07/30/2015 08/05/2015 Inactive Kenalog 40 mg/mL suspension for injection RxNorm: 4065713 1 Milliliter(s) Inj 03/22/2015 03/22/2015 Inactive Flonase 50 mcg/actuation Nasal [place] RxNorm: 7308984 1 [place] NASAL 07/12/2012 07/11/2012 Inactive 1 spray each nare x 5 days Flonase 50 mcg/actuation Nasal [place] RxNorm: 4528054 1 [place] NASAL 07/12/2012 07/16/2012 Inactive 1 spray each nare x 5 days cefdinir 300 mg capsule RxNorm: 863882 1 Capsule(s) PO BID 07/12/2012 07/18/2012 Inactive cefdinir 300 mg capsule RxNorm: 806576 1 Capsule(s) PO BID 07/12/2012 07/11/2012 Inactive Tamiflu 75 mg capsule RxNorm: 309118 1 Capsule(s) PO BID 06/20/2012 06/24/2012 Inactive Tamiflu 75 mg capsule RxNorm: 058959 1 Capsule(s) PO BID 06/20/2012 06/19/2012 Inactive Diflucan 150 mg tablet RxNorm: 828835 1 Tablet(s) PO daily 04/21/2012 05/04/2012 Inactive nystatin 100,000 unit/g Topical Cream RxNorm: 886508 1 Application TOP TID 04/13/2012 05/02/2012 Inactive one application to groin tid Diflucan 150 mg tablet RxNorm: 749865 1 Tablet(s) PO daily 04/04/2012 04/06/2012 Inactive nystatin 100,000 unit/g Topical Cream RxNorm: 315060 1 Application TOP TID 04/04/2012 04/03/2012 Inactive one application to groin tid x 10 day nystatin 100,000 unit/g Topical Cream RxNorm: 574880 1 Application TOP TID 04/04/2012 04/12/2012 Inactive one application to groin tid x 10 day Diflucan 150 mg tablet RxNorm: 488758 1 Tablet(s) PO daily 03/23/2012 03/22/2012 Inactive Diflucan 150 mg tablet RxNorm: 359732 1 Tablet(s) PO daily 03/23/2012 03/29/2012 Inactive Rocephin 1 gram Solution for Injection RxNorm: 6883498 Inj 03/18/2012 03/18/2012 Inactive Augmentin 500 mg-125 mg tablet RxNorm: 520137 1 Tablet(s) PO TID 03/11/2012 03/10/2012 Inactive Augmentin 500 mg-125 mg tablet RxNorm: 185587 1 Tablet(s) PO TID 03/11/2012 03/17/2012 Inactive Kenalog 40 mg/mL Susp for Injection RxNorm: 3274293 1 Milliliter(s) Inj 07/02/2011 07/02/2011 Inactive Rocephin 500 mg Solution for Injection RxNorm: 0995373 1 Milliliter(s) Inj 07/02/2011 07/02/2011 Inactive Bactrim DS 800 mg-160 mg Tab RxNorm: 576534 1 Tablet(s) PO BID 06/30/2011 07/09/2011 Inactive multivitamin Oral RxNorm: Oral No Start Date Active omeprazole 40 mg Cap, Delayed Release RxNorm: 151616 1 Capsule(s) PO PRN No Start Date Active Yuridia-D 12 Hour 60 mg-120 mg tablet,extended release RxNorm: 223830 1 Tablet(s) PO BID No Start Date 12/05/2017 Inactive Zithromax 500 mg tablet RxNorm: 355086 2 Tablet(s) PO daily No Start Date 01/30/2016 Inactive Aspirin For Children 81 mg Chewable Tab RxNorm: 745021 1 Tablet(s) PO daily No Start Date 08/07/2018 Inactive Zyrtec-D 5 mg-120 mg 12 hr Tab RxNorm: 6737567 1 Tablet(s) PO daily No Start Date 07/29/2015 Inactive Medication Administered Medication Codes Instructions Start Date Status Kenalog 40 mg/mL suspension for injection RxNorm: 9654665 1Millil[place] 04/05/2017 No longer Active Kenalog 40 mg/mL suspension for injection RxNorm: 8629753 1[place]il[place] 02/24/2017 No longer Active Kenalog 40 mg/mL suspension for injection RxNorm: 8040245 1[place]il[place] 09/16/2016 No longer Active Kenalog 40 mg/mL suspension for injection RxNorm: 9645089 [place] 07/30/2015 No longer Active Kenalog 40 mg/mL suspension for injection RxNorm: 2373080 1[place]il[place] 03/22/2015 No longer Active Rocephin 1 gram Solution for Injection RxNorm: 7793754 03/18/2012 No longer Active Rocephin 500 mg Solution for Injection RxNorm: 9625755 1[place]il[place] 07/02/2011 No longer Active Kenalog 40 mg/mL Susp for Injection RxNorm: 1590136 1[place]il[place] 07/02/2011 No longer Active Immunizations Vaccine [...] Item Item Code Result Date Comp Metabolic Nit527 NA 139 mEq/L 03/15/2018 Comp Metabolic Lhr177 K 4.2 mEq/L 03/15/2018 Comp Metabolic Qzk634 CL 101 mEq/L 03/15/2018 Comp Metabolic Efr569 CO2 32.0 mEq/L 03/15/2018 Comp Metabolic Guz506 ANION GAP 10 03/15/2018 Comp Metabolic Pkq597 GLUCOSE 94 mg/dL 03/15/2018 Comp Metabolic Pps573 Creat 0.9 mg/dL 03/15/2018 Comp Metabolic Dud792 eGFR 104 ml/min/1.73m2 03/15/2018 Comp Metabolic Yyp341 BUN 14 mg/dL 03/15/2018 Comp Metabolic Npl827 B/C Ratio 16.3 Ratio 03/15/2018 Comp Metabolic Xhn193 CALCIUM 9.8 mg/dL 03/15/2018 Comp Metabolic Mbp472 ALK PHOS 75 U/L 03/15/2018 Comp Metabolic Ufb665 AST(SGOT) 20 U/L 03/15/2018 Comp Metabolic Egj579 ALT(SGPT) 30 U/L 03/15/2018 Comp Metabolic Akt734 BILI T 1.2 mg/dL 03/15/2018 Comp Metabolic Ksm451 ALBUMIN 4.7 g/dL 03/15/2018 Comp Metabolic Tha122 TPRO 7.2 g/dL 03/15/2018 Comp Metabolic Kbf167 GLOB 2.5 g/dL 03/15/2018 Comp Metabolic Gby766 A/G Ratio 1.9 Ratio 03/15/2018 Comp Metabolic Cmk322 Osmo 278 mOsmo 03/15/2018 Urine Culture Ucult [...] if culture needed 01/04/2018 Hepatitis Panel (Abc) 42000 HEPATITIS B SURFACE AG . 12/09/2017 Hepatitis Panel (Abc) 01500 HEPATITIS B SURFACE AG NEGATIVE 12/09/2017 Hepatitis Panel (Abc) 03824 HEPATITIS B CORE AB, IGM . 12/09/2017 Hepatitis Panel (Abc) 69573 HEPATITIS B CORE AB, IGM NEGATIVE 12/09/2017 Hepatitis Panel (Abc) 05207 HEPATITIS A AB, IGM . 12/09/2017 Hepatitis Panel (Abc) 33096 HEPATITIS A AB, IGM NEGATIVE 12/09/2017 Hepatitis Panel (Abc) 97379 HEPATITIS C ANTIBODY . 12/09/2017 Hepatitis Panel (Abc) 72686 HEPATITIS C ANTIBODY NEGATIVE 12/09/2017 Tsh Ord6 TSH (3rd IS) 2.24 uIU/mL 11/29/2017 Comp Metabolic Ocl704 NA 138 mEq/L 11/29/2017 Comp Metabolic Opw144 K 4.1 mEq/L 11/29/2017 Comp Metabolic Hnl885 CL 101 mEq/L 11/29/2017 Comp Metabolic Tqu612 CO2 30.0 mEq/L 11/29/2017 Comp Metabolic Qvx127 ANION GAP 11 11/29/2017 Comp Metabolic Una631 GLUCOSE 89 mg/dL 11/29/2017 Comp Metabolic Dox180 Creat 0.8 mg/dL 11/29/2017 Comp Metabolic Qrg635 eGFR 107 ml/min/1.73m2 11/29/2017 Comp Metabolic Poq620 BUN 15 mg/dL 11/29/2017 Comp Metabolic Hzg421 B/C Ratio 17.9 Ratio 11/29/2017 Comp Metabolic Isl649 CALCIUM 9.4 mg/dL 11/29/2017 Comp Metabolic Hjg770 ALK PHOS 71 U/L 11/29/2017 Comp Metabolic Pax361 AST(SGOT) 19 U/L 11/29/2017 Comp Metabolic Noz614 ALT(SGPT) 27 U/L 11/29/2017 Comp Metabolic Zma010 BILI T 1.8 mg/dL 11/29/2017 Comp Metabolic Wrz709 ALBUMIN 4.4 g/dL 11/29/2017 Comp Metabolic Ucz095 TPRO 6.8 g/dL 11/29/2017 Comp Metabolic Giy551 GLOB 2.5 g/dL 11/29/2017 Comp Metabolic Niw710 A/G Ratio 1.8 Ratio 11/29/2017 Comp Metabolic Ray047 Osmo 276 mOsmo 11/29/2017 Urine Culture Ucult [...] 27.4 pg 11/29/2017 Cbc With Differential Ord2 [place]% 8.3 % 11/29/2017 Cbc With Differential Ord2 [...] 3.16 K/ul 11/29/2017 Cbc With Differential Ord2 [place] ABS# 0.7 K/ul 11/29/2017 Cbc With Differential Ord2 Eos ABS# 0.2 K/ul 11/29/2017 Cbc With Differential Ord2 Baso ABS# 0.0 K/ul 11/29/2017 C RAP A SC [id number] Strep A Negative 08/20/2016 GC/CHL PRB 3945318 SOURCE CASSANDRA UNKNOWN 03/19/2012 GC/CHL PRB 2210391 CHLM PROBE NEG 03/19/2012 GC/CHL PRB 7662892 GC PROBE NEG 03/19/2012 URINALYSIS NONAUTO W/O SCOPE 86386 Specific [place] 1.010 DateTime(Free Text in Aprima) URINALYSIS NONAUTO W/O SCOPE 50911 PH 6.5 DateTime(Free Text in Aprima) URINALYSIS NONAUTO W/O SCOPE 86218 GLUCOSE neg DateTime(Free Text in Aprima) URINALYSIS NONAUTO W/O SCOPE 71618 Protein neg DateTime(Free Text in Aprima) URINALYSIS NONAUTO W/O SCOPE 35880 Blood neg DateTime(Free Text in Aprima) URINALYSIS NONAUTO W/O SCOPE 17330 Bilirubin neg DateTime(Free Text in Aprima) URINALYSIS NONAUTO W/O SCOPE 80691 Ketones neg DateTime(Free Text in Aprima) URINALYSIS NONAUTO W/O SCOPE 09103 Urobilinogen neg DateTime(Free Text in Aprima) URINALYSIS NONAUTO W/O SCOPE 35039 Nitrite neg DateTime(Free Text in Aprima) URINALYSIS NONAUTO W/O SCOPE 14581 Leukocytes neg DateTime(Free Text in Aprima) Review [...] time 07/30/2015 None Full Exam - General [facility] Psychiatric orientation/consciousness Overall: oriented to person, place [...] Codes Date URINALYSIS NONAUTO W/O SCOPE CPT-4: 69302 06/28/2018 TRIAMCINOLONE ACET INJ NOS CPT-4: J3301 04/05/2017 TRIAMCINOLONE ACET INJ NOS CPT-4: J3301 02/24/2017 THER/PROPH/DIAG INJ SC/IM CPT-4: 86269 09/16/2016 TRIAMCINOLONE ACET INJ NOS CPT-4: J3301 09/16/2016 TRIAMCINOLONE ACET INJ NOS CPT-4: J3301 07/30/2015 TRIAMCINOLONE ACET INJ NOS CPT-4: J3301 03/22/2015 ROCEPHIN, PER 250 MG CPT- 4: J0696 03/18/2012 URINALYSIS NONAUTO W/O SCOPE CPT-4: 56990 03/17/2012 ROCEPHIN, PER 250 MG CPT- 4: J0696 06/30/2011 TRIAMCINOLONE ACET INJ NOS CPT-4: J3301 06/30/2011 Vital Signs Date Vital 08/08/2018 Blood Pressure 1: 122/80 Code: 8480-6 Heart Rate 1: 84 bpm Height: 6'2" SpO2: 98% 06/28/2018 Blood Pressure 1: 122/82 Code: 8480-6 BMI: 24.0 Code: 29268-1 Heart Rate 1: 91 bpm Height: 6'2" SpO2: 98% Weight: 187 lbs 02/22/2018 Blood Pressure 1: 110/80 Code: 8480-6 Heart Rate 1: 74 bpm Height: 6'2" SpO2: 98% Weight: 02/16/2018 Blood Pressure 1: 130/72 Code: 8480-6 BMI: 24.0 Code: 41691-8 Heart Rate 1: 82 bpm Height: 6'2" SpO2: 97% Weight: 187 lbs 12/20/2017 Blood Pressure 1: 128/88 Code: 8480-6 BMI: 23.1 Code: 99827-0 Heart Rate 1: 86 bpm Height: 6'2" SpO2: 98% Weight: 180 lbs 11/26/2017 Blood Pressure 1: 122/80 Code: 8480-6 BMI: 23.1 Code: 15746-2 Heart Rate 1: 56 bpm Height: 6'2" SpO2: 98% Weight: 180 lbs 07/21/2017 Blood Pressure 1: 120/78 Code: 8480-6 BMI: 21.8 Code: 47599-5 Heart Rate 1: 88 bpm Height: 6'2" SpO2: 97% Weight: 170 lbs 04/05/2017 Blood Pressure 1: 126/68 Code: 8480-6 BMI: 22.6 Code: 65053-1 Heart Rate 1: 80 bpm Height: 6'2" SpO2: 98% Weight: 176 lbs 03/22/2017 Blood Pressure 1: 120/72 Code: 8480-6 BMI: 22.5 Code: 23804-7 Heart Rate 1: 82 bpm Height: 6'2" SpO2: 98% Temperature: 36.8 (C) / 98.3 (F) Weight: 175 lbs 02/24/2017 Blood Pressure 1: 120/62 Code: 8480-6 BMI: 22.5 Code: 53553-3 Heart Rate 1: 84 bpm Height: 6'2" SpO2: 98% Weight: 175 lbs 08/20/2016 Blood Pressure 1: 126/78 Code: 8480-6 BMI: 24.1 Code: 29971-1 Heart Rate 1: 84 bpm Height: 6'2" SpO2: 98% Temperature: 37.1 (C) / 98.8 (F) Weight: 188 lbs 06/10/2016 Blood Pressure 1: 124/62 Code: 8480-6 BMI: 24.4 Code: 70982-8 Heart Rate 1: 85 bpm Height: 6'2" SpO2: 98% Weight: 190 lbs 02/07/2016 Blood Pressure 1: 128/72 Code: 8480-6 BMI: 23.6 Code: 26040-1 Heart Rate 1: 78 bpm Height: 6'2" SpO2: 96% Weight: 184 lbs 01/08/2016 Blood Pressure 1: 108/70 Code: 8480-6 BMI: 23.4 Code: 32304-2 Heart Rate 1: 84 bpm Height: 6'2" SpO2: 96% Weight: 182 lbs 07/30/2015 Blood Pressure 1: 110/64 Code: 8480-6 BMI: 22.6 Code: 05890-4 Heart Rate 1: 78 bpm Height: 6'2" SpO2: 98% Weight: 176 lbs 03/22/2015 Blood Pressure 1: 126/80 Code: 8480-6 BMI: 24.0 Code: 70685-6 Heart Rate 1: 76 bpm Height: 6'2" SpO2: 98% Weight: 187 lbs 06/20/2012 Blood Pressure 1: 110/76 Code: 8480-6 Heart Rate 1: 100 bpm Temperature: 38.7 (C) / 101.7 (F) Weight: 169 lbs 03/18/2012 Blood Pressure 1: 132/70 Code: 8480-6 Heart Rate 1: 80 bpm Weight: 160 lbs 06/30/2011 Blood Pressure 1: 110/72 Code: 8480-6 BMI: 23.9 Code: 58620-4 Heart Rate 1: 72 bpm Height: 6'2" Respiratory Rate: 20 bpm Weight: 186 lbs 03/09/2011 Blood Pressure 1: 96/58 Code: 8480-6 BMI: 23.2 Code: 49245- 5 Heart Rate 1: 80 bpm Height: 6'2" Respiratory Rate: 16 bpm Weight: 183 lbs 01/12/2011 Blood Pressure 1: 126/80 Code: 8480-6 BMI: 23.5 Code: 95127-2 Heart Rate 1: 82 bpm Height: 6'2" [...] 04/05/2017 None rash Location-Head/Neck on the left uatsdin 04/05/2017 None rash Location-Head/Neck on the forehead [...] Encounters Encounter Performer Location Codes Date () 75642 EST. PATIENT, LEVEL III Diagnosis: Candidiasis of skin and nail[ICD10: B37.2] Gin Riggs MD, [facility] CPT-4: 98259 08/08/2018 ([id number]) 48125 EST. 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 PATIENT, LEVEL III Diagnosis: Dysuria[ICD10: R30.0] Cherry Riggs MD, [facility] CPT-4: 30482 02/16/2018 ([id number]) 60379 EST. PATIENT, LEVEL III Diagnosis: Pain in left knee[ICD10: M25.562] Gin Riggs MD, [facility] CPT- 4: 86731 12/20/2017 ([id number]) PREV VISIT EST AGE 40-64 Diagnosis: Encounter for general adult medical examination without abnormal findings[ICD10: Z00.00] Diagnosis: Dysuria[ICD10: R30.0] Diagnosis: Other allergic rhinitis[ICD10: J30.89] Gin Riggs MD, [facility] CPT-4: 37367 11/26/2017 89626 EST. PATIENT, LEVEL IV Diagnosis: Other acute sinusitis[ICD10: J01.80] Diagnosis: Other allergic rhinitis[ICD10: J30.89] Cherry Riggs MD, [facility] CPT- 4: 98386 07/21/2017 66030 EST. PATIENT, LEVEL IV Diagnosis: Allergic contact dermatitis due to plants, except food[ICD10: L23.7] Cherry Riggs MD, [facility] CPT-4: 63157 04/05/2017 ([id number]) 34500 EST. PATIENT, LEVEL III Diagnosis: Acute recurrent maxillary sinusitis[ICD10: J01.01] Gin Riggs MD, [facility] CPT-4: 80740 03/22/2017 65280 EST. PATIENT, LEVEL IV Diagnosis: Other acute sinusitis[ICD10: J01.80] Diagnosis: Other allergic rhinitis[ICD10: J30.89] Cherry Riggs MD, [facility] CPT- 4: 63525 02/24/2017 ([id number]) 43393 EST. PATIENT, LEVEL III Diagnosis: Acute laryngopharyngitis[ICD10: J06.0] Gin Riggs MD, [facility] CPT-4: 95425 08/20/2016 01512 EST. PATIENT, LEVEL III Diagnosis: Pain in right shoulder[ICD10: M25.511] Cherry Riggs MD, [facility] CPT- 4: 87361 06/10/2016 ([id number]) 92241 EST. PATIENT, LEVEL II Diagnosis: Melanocytic nevi, unspecified[ICD10: D22.9] Gin Riggs MD, [facility] CPT-4: 22387 02/07/2016 32240 EST. PATIENT, LEVEL III Diagnosis: Other acute sinusitis[ICD10: J01.80] Diagnosis: Other allergic rhinitis[ICD10: J30.89] Cherry Riggs MD, [facility] CPT- 4: 44776 01/08/2016 ([id number]) 85104 EST. PATIENT, LEVEL III Diagnosis: Acute recurrent maxillary sinusitis[ICD10: J01.01] Gin Riggs MD, [facility] CPT-4: 70645 07/30/2015 ([id number]) PREV VISIT EST AGE 18-39 Diagnosis: Encounter for general adult medical examination without abnormal findings[ICD10: Z00.00] Diagnosis: Allergic rhinitis, unspecified[ICD10: J30.9] Gin Riggs MD, [facility] CPT-4: 43598 03/22/2015 ([id number]) 48574 EST. PATIENT, LEVEL III Diagnosis: Influenza[ICD9: 487.1] Gin Riggs MD, [facility] CPT-4: 19342 06/20/2012 74390 EST. PATIENT, LEVEL II Diagnosis: DYSURIA[ICD9: 788.1] Diagnosis: Screen for sexually transmitted diseases[ICD9: V74.5] Gin Riggs MD, [facility] CPT-4: 21622 03/18/2012 ([id number]) 10637 EST. PATIENT, LEVEL III Diagnosis: ACUTE SINUSITIS[ICD9: 461.9] [facility] CPT-4: 05130 06/30/2011 11912 EST. PATIENT, LEVEL IV Diagnosis: ESOPHAGEAL REFLUX[ICD9: 530.81] Diagnosis: Constipation[ICD9: 564.00] Claire Riggs MD, [facility] CPT-4: 29320 03/09/2011 OFFICE VISIT, NEW - LEVEL 3 Diagnosis: Encounter for annual health examination[ICD9: V70.0] Diagnosis: Esophageal reflux[ICD9: 530.81] Claire Riggs MD, [facility] CPT-4: 06532 01/12/2011 Plan of Care Planned Activity Notes Codes Status Date Visit Plan: Yeast infection -patient's was positive for yeast infection -will treat patient with diflucan -instructed him to call if symptoms do not resolve and we will re-evaluate or send to urologist for cheryl luation -patient verbalized understanding of plan. 08/08/2018 Appointment: Gin Dooley WPtel: [address] [place] [address] (30 min) Complex 08/08/2018 Patient Education: Patient Medication Summary Completed 08/08/2018 Visit Plan: Dysuria -irritation -UA negative-recommend patient switch to unscented soap/lotion -monitor symptoms and call if they do no resolve Varicocele -check semen analysis 06/28/2018 Appointment: Gin Dooley WPtel: [address] [place] [address] (30 min) Complex 06/28/2018 Patient Education: Patient Medication Summary Completed 06/28/2018 Patient Education: Patient Medication Summary Completed 03/15/2018 Visit Plan: Varicocele-grade 3 -discussed with Dr Riggs - start an aspirin daily - discussed anti inflammatories, supportive underwear and to call if symptoms do not resolve or if any worse. Patient verbalized understanding of plan. 02/22/2018 Appointment: Gin Dooley WPtel: [address] [place], [place] [phone] (15 min) Moderate 02/22/2018 Patient Education: Patient [...] to urology 02/16/2018 Appointment: Cherry Wagoner WPtel: [address] [place], [place] [id number] (15 min) Moderate 02/16/2018 Patient Education: Patient Medication Summary Completed 02/16/2018 Patient Education: Patient Medication Summary Completed 01/03/2018 Visit Plan: Left knee pain -suspect meniscal injury -will xray knee today and then schedule MRI for further evaluation -discussed rest, ice and anti inflammatories as directed 12/20/2017 Appointment: Gin Dooley WPtel: [facility] [phone] (15 min) Moderate 12/20/2017 Patient Education: Patient Medication Summary Completed 12/20/2017 Care Plan: X-RAY EXAM OF KNEE 3 [facility] : [id number] Pending 12/20/2017 Visit Plan: Well Adult - [...] not improve. 11/26/2017 Appointment: Gin Dooley WPtel: [facility] [place] [address] (15 min) Moderate 11/26/2017 Patient Education: Patient [...] allergy spray. 07/21/2017 Appointment: Cherry Wagoner WPtel: [facility] [place] (15 min) Moderate 07/21/2017 Patient Education: Patient Medication Summary Completed 07/21/2017 Visit Plan: Poison Ruthy - pt is to use topical treatments as directed. Pt is cleanse clothing in hot water with soap, and call if symptoms do not improve or if they worsen. 04/05/2017 Appointment: Cherry Wagoner WPtel: [facility] [place] (10 min) Simple 04/05/2017 Patient Education: Patient [...] allergy spray. 03/22/2017 Appointment: Gin Dooley WPtel: [address] [place], [place] [id number] [place] [address] (15 min) Moderate 03/22/2017 Patient Education: Patient [...] allergy spray. 02/24/2017 Appointment: Cherry Wagoner WPtel: [address] [place], [place] [phone] (15 min) Moderate 02/24/2017 Patient Education: Patient [...] as needed for fever/discomfort. 08/20/2016 Appointment: Gin Dooleyl: [phone] [phone] (10 min) Simple 08/20/2016 Patient Education: [...] for evaluation 02/07/2016 [phone] (30 min) Complex 02/07/2016 Patient Education: Patient Medication Summary Completed 02/07/2016 Care Plan: Referral Order SNOMED-CT : [id number] Pending 02/07/2016 Visit Plan: Sinusitis - Pt [...] the office 03/22/2015 Appointment: Gin Dooley WPtel: [facility] [place] [address] Physical 03/22/2015 Patient Education: Patient Medication [...] any worse. 06/20/2012 Appointment: Gin Dooley WPtel: [address] [place] [address] Sick 06/20/2012 Patient Education: Patient Medication Summary [...] of testing. 03/18/2012 Appointment: Gin Dooley WPtel: [facility] [place]7 [address] Other 03/18/2012 Patient Education: Patient Medication Summary Completed 03/18/2012 Appointment: Claire Riggs WPtel: [facility] [place] [address] Lab Draw 03/17/2012 Patient Education: Patient [...] not resolve. 06/30/2011 Appointment: Gin Dooley WPtel: [facility] [phone] Other 06/30/2011 Patient Education: Patient Medication [...] at 3:30pm. 03/09/2011 Appointment: Claire Riggs WPtel: [facility] [place] [facility] Other 03/09/2011 Patient Education: Patient Medication Summary [...] exercise program. 01/12/2011 Appointment: Claire Riggs WPtel: [facility] [place] [phone] [place] New Patient 01/12/2011 Patient Education: Patient Medication Summary Completed 01/12/2011 Referral: Maranda Greene WPtel: Referral Appointment Requested Instructions Comment . Yeast infection -patient's was positive for yeast infection -will treat patient with diflucan -instructed him to call if symptoms do not resolve and we will re-evaluate or send to urologist for evaluation -patient verbalized understanding of plan. . Sinusitis - Pt has acute infection - pain in face, maxillary region, Pt informed to use decongestant, RX given to patient, sinus rinses also recommended. Call if symptoms do not show improvement. Cough-rocephin and kenalog injection today in the office-rx for zpack to patient's pharmacy-call if symptoms do not resolve. aleve twice a day for the next 3 days . Right shoulder pain - ongoing - Will order MRI - The pt is to use prn antiinflammatories to manage acute pain. The patient is to call the office if the pain is worsening or does not improve. Continue Zyrtec D Add flonase 1 spray [...] improve or if they worsen. SWITCH TO UNSCENTED SOAP-LOTION SEMEN ANALYSIS . [...] pain. Tylenol/motrin as needed for fever/discomfort. . Sinusitis - Pt has acute infection - pain in face, maxillary region, Pt informed to use decongestant, RX given to patient, sinus rinses also recommended. Call if symptoms do not show improvement. . Dysuria - ongoing - no other [...]
--- OUTSIDE RECORDS SUMMARY | 2018-11-22 07:14 | XMS REPORT | CCD ---
Author Author [facility] Organization [facility] Address [address] [place] [address] Phone Care Team Providers Care Director Of Sustainability Programs Name Role Phone Claire Riggs PP Unavailable CCM Unavailable Summary Purpose Interface Exchange Insurance Providers Payer name Policy type / Coverage type Covered republican ID Effective Begin Date Effective End Date Blue Cross Blue [facility] Blue Cross/Blue [facility] [id number] Unknown Family history Mother Diagnosis Age At Onset Cancer Unknown Brother Diagnosis Age At Onset No Family Disease Entered N/A Grandmother Diagnosis Age At Onset Cancer Unknown Father Diagnosis Age At Onset No Family Disease Entered N/A Social History Social History Element Codes Description Effective Dates Marital status Unknown 01/12/2011 Employment Unknown 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 Unknown Has never used illegal drugs 01/12/2011 Allergies, Adverse Reactions, Alerts Substance Reaction Codes Entered Date Inactivated Date Status * NO KNOWN FOOD ALLERGIES Unknown 01/12/2011 No Inactive Date Active bactrim RxNorm: 240092 03/22/2015 No Inactive Date Active Past Medical [...] Fill Instructions fluconazole 150 mg tablet RxNorm: 573854 1 Tablet(s) PO daily 08/08/2018 08/14/2018 Active omeprazole 20 mg capsule,delayed release RxNorm: 406531 1 Capsule(s) PO daily 06/28/2018 10/25/2018 Active Flonase 50 mcg/actuation nasal spray,suspension RxNorm: 9219221 1 [place] NASAL BID 06/22/2018 No Stop Date Active Zyrtec-D 5 mg-120 mg tablet,extended release RxNorm: 3892879 1 Tablet(s) PO BID as needed 06/22/2018 No Stop Date Active Augmentin 875 mg-125 mg tablet RxNorm: 835206 1 Tablet(s) PO BID 06/02/2018 06/08/2018 Inactive Zithromax Z-Surya 250 mg tablet RxNorm: 778728 1 Tablet(s) PO UD 03/24/2018 06/01/2018 Inactive Flonase 50 mcg/actuation nasal spray,suspension RxNorm: 8395213 1 [place] NASAL BID 03/01/2018 06/21/2018 Inactive Cipro 500 mg tablet RxNorm: 117136 1 Tablet(s) PO BID 02/16/2018 02/25/2018 Inactive Diflucan 150 mg tablet RxNorm: 770724 1 Tablet(s) PO daily start after cipro is finished 02/16/2018 02/22/2018 Inactive Augmentin 875 mg-125 mg tablet RxNorm: 778548 1 Tablet(s) PO BID 12/24/2017 12/23/2017 Inactive Augmentin 875 mg-125 mg tablet RxNorm: 864255 1 Tablet(s) PO BID 12/24/2017 12/30/2017 Inactive Keflex 500 mg capsule RxNorm: 139895 1 Capsule(s) PO TID 12/08/2017 12/14/2017 Inactive Yuridia-D 12 Hour 60 mg-120 mg tablet,extended release RxNorm: 839895 1 Tablet(s) PO BID 12/06/2017 No Stop Date Active Keflex 500 mg capsule RxNorm: 719196 1 Capsule(s) PO TID 11/26/2017 12/02/2017 Inactive Flonase 50 mcg/actuation nasal spray,suspension RxNorm: 4384417 1 [place] NASAL BID 11/15/2017 02/28/2018 Inactive Yuridia Allergy 180 mg tablet RxNorm: 720352 1 Tablet(s) PO daily 10/27/2017 10/27/2017 Inactive Zyrtec-D 5 mg-120 mg tablet,extended release RxNorm: 8987180 1 Tablet(s) PO BID as needed 10/20/2017 06/21/2018 Inactive Yuridia Allergy 180 mg tablet RxNorm: 086308 1 Tablet(s) PO daily 09/21/2017 10/20/2017 Inactive Augmentin 500 mg-125 mg tablet RxNorm: 945382 1 Tablet(s) PO TID 07/21/2017 07/30/2017 Inactive Yuridia Allergy 180 mg tablet RxNorm: 790159 1 Tablet(s) PO daily 07/21/2017 08/19/2017 Inactive Zyrtec-D 5 mg-120 mg tablet,extended release RxNorm: 0169358 1 Tablet(s) PO BID as needed 06/15/2017 10/19/2017 Inactive Zyrtec-D 5 mg-120 mg tablet,extended release RxNorm: 1319569 1 Tablet(s) PO BID as needed 05/11/2017 02/21/2018 Inactive prednisone 10 mg tablet RxNorm: 838388 Tablet(s) PO 04/05/2017 12/07/2017 Inactive 6,5,4,3,2,1 Kenalog 40 mg/mL suspension for injection RxNorm: 2714657 1 Milliliter(s) Inj 04/05/2017 04/05/2017 Inactive Flonase 50 mcg/actuation nasal spray,suspension RxNorm: 8551562 1 [place] NASAL BID 04/01/2017 11/14/2017 Inactive Augmentin 875 mg-125 mg tablet RxNorm: 869688 1 Tablet(s) PO BID 03/22/2017 03/28/2017 Inactive prednisone 20 mg tablet RxNorm: 338844 2 Tablet(s) PO daily 03/02/2017 03/06/2017 Inactive prednisone 20 mg tablet RxNorm: 800840 2 Tablet(s) PO daily 03/02/2017 03/01/2017 Inactive Zithromax Z-Surya 250 mg tablet RxNorm: 875467 1 Tablet(s) PO UD 02/24/2017 03/21/2017 Inactive Kenalog 40 mg/mL suspension for injection RxNorm: 3954162 1 Milliliter(s) Inj 02/24/2017 02/24/2017 Inactive Zyrtec-D 5 mg-120 mg tablet,extended release RxNorm: 1978546 1 Tablet(s) PO BID as needed 02/05/2017 05/10/2017 Inactive Zyrtec-D 5 mg-120 mg tablet,extended release RxNorm: 1944031 1 Tablet(s) PO BID as needed 12/01/2016 02/04/2017 Inactive Zyrtec-D 5 mg-120 mg tablet,extended release RxNorm: 9901363 1 Tablet(s) PO BID as needed 11/03/2016 11/30/2016 Inactive Zyrtec-D 5 mg-120 mg tablet,extended release RxNorm: 9758032 1 Tablet(s) PO BID as needed 10/09/2016 11/02/2016 Inactive Kenalog 40 mg/mL suspension for injection RxNorm: 3363465 1 Milliliter(s) Inj 09/16/2016 09/16/2016 Inactive Levaquin 500 mg tablet RxNorm: 793591 1 Tablet(s) PO daily 09/15/2016 09/24/2016 Inactive Levaquin 500 mg tablet RxNorm: 676194 1 Tablet(s) PO daily 09/15/2016 09/14/2016 Inactive prednisone 20 mg tablet RxNorm: 566893 1 Tablet(s) PO BID 09/15/2016 09/19/2016 Inactive amoxicillin 500 mg tablet RxNorm: 749734 1 Tablet(s) PO BID 08/20/2016 08/29/2016 Inactive Augmentin 875 mg-125 mg tablet RxNorm: 227899 1 Tablet(s) PO BID 04/23/2016 04/28/2016 Inactive Zyrtec-D 5 mg-120 mg tablet,extended release RxNorm: 6441432 1 Tablet(s) PO BID as needed 01/31/2016 10/08/2016 Inactive Flonase 50 mcg/actuation nasal spray,suspension RxNorm: 7523618 1 [place] NASAL BID 01/08/2016 01/22/2016 Inactive Flonase 50 mcg/actuation nasal spray,suspension RxNorm: 4192743 1 [place] NASAL BID 01/08/2016 01/07/2016 Inactive 1 spray each nare x 5 days Zithromax Z-Surya 250 mg tablet RxNorm: 501245 Tablet(s) PO 01/08/2016 01/30/2016 Inactive Zyrtec-D 5 mg-120 mg tablet,extended release RxNorm: 1402889 1 Tablet(s) PO BID as needed 01/08/2016 01/30/2016 Inactive Augmentin 875 mg-125 mg tablet RxNorm: 381619 1 Tablet(s) PO BID 10/08/2015 10/17/2015 Inactive Augmentin 875 mg-125 mg tablet RxNorm: 865460 1 Tablet(s) PO BID 10/08/2015 10/07/2015 Inactive prednisone 20 mg tablet RxNorm: 239256 1 Tablet(s) PO BID 08/01/2015 08/05/2015 Inactive prednisone 20 mg tablet RxNorm: 323371 1 Tablet(s) PO BID 08/01/2015 07/31/2015 Inactive Kenalog 40 mg/mL suspension for injection RxNorm: 1110947 Milliliter(s) Inj 07/30/2015 07/30/2015 Inactive Zyrtec-D 5 mg-120 mg tablet,extended release RxNorm: 4576453 1 Tablet(s) PO BID as needed 07/30/2015 01/07/2016 Inactive Augmentin 875 mg-125 mg tablet RxNorm: 737837 1 Tablet(s) PO BID 07/30/2015 08/05/2015 Inactive Kenalog 40 mg/mL suspension for injection RxNorm: 8093416 1 Milliliter(s) Inj 03/22/2015 03/22/2015 Inactive Flonase 50 mcg/actuation Nasal [place] RxNorm: 4766366 1 [place] NASAL 07/12/2012 07/11/2012 Inactive 1 spray each nare x 5 days Flonase 50 mcg/actuation Nasal [place] RxNorm: 5263288 1 [place] NASAL 07/12/2012 07/16/2012 Inactive 1 spray each nare x 5 days cefdinir 300 mg capsule RxNorm: 990232 1 Capsule(s) PO BID 07/12/2012 07/18/2012 Inactive cefdinir 300 mg capsule RxNorm: 734892 1 Capsule(s) PO BID 07/12/2012 07/11/2012 Inactive Tamiflu 75 mg capsule RxNorm: 752822 1 Capsule(s) PO BID 06/20/2012 06/24/2012 Inactive Tamiflu 75 mg capsule RxNorm: 937354 1 Capsule(s) PO BID 06/20/2012 06/19/2012 Inactive Diflucan 150 mg tablet RxNorm: 806224 1 Tablet(s) PO daily 04/21/2012 05/04/2012 Inactive nystatin 100,000 unit/g Topical Cream RxNorm: 522084 1 Application TOP TID 04/13/2012 05/02/2012 Inactive one application to groin tid Diflucan 150 mg tablet RxNorm: 916841 1 Tablet(s) PO daily 04/04/2012 04/06/2012 Inactive nystatin 100,000 unit/g Topical Cream RxNorm: 489943 1 Application TOP TID 04/04/2012 04/03/2012 Inactive one application to groin tid x 10 day nystatin 100,000 unit/g Topical Cream RxNorm: 380044 1 Application TOP TID 04/04/2012 04/12/2012 Inactive one application to groin tid x 10 day Diflucan 150 mg tablet RxNorm: 156056 1 Tablet(s) PO daily 03/23/2012 03/22/2012 Inactive Diflucan 150 mg tablet RxNorm: 361426 1 Tablet(s) PO daily 03/23/2012 03/29/2012 Inactive Rocephin 1 gram Solution for Injection RxNorm: 6748021 Inj 03/18/2012 03/18/2012 Inactive Augmentin 500 mg-125 mg tablet RxNorm: 484290 1 Tablet(s) PO TID 03/11/2012 03/10/2012 Inactive Augmentin 500 mg-125 mg tablet RxNorm: 276131 1 Tablet(s) PO TID 03/11/2012 03/17/2012 Inactive Kenalog 40 mg/mL Susp for Injection RxNorm: 2866572 1 Milliliter(s) Inj 07/02/2011 07/02/2011 Inactive Rocephin 500 mg Solution for Injection RxNorm: 2372349 1 Milliliter(s) Inj 07/02/2011 07/02/2011 Inactive Bactrim DS 800 mg-160 mg Tab RxNorm: 089447 1 Tablet(s) PO BID 06/30/2011 07/09/2011 Inactive multivitamin Oral RxNorm: Oral No Start Date Active omeprazole 40 mg Cap, Delayed Release RxNorm: 481991 1 Capsule(s) PO PRN No Start Date Active Yuridia-D 12 Hour 60 mg-120 mg tablet,extended release RxNorm: 182734 1 Tablet(s) PO BID No Start Date 12/05/2017 Inactive Zithromax 500 mg tablet RxNorm: 441615 2 Tablet(s) PO daily No Start Date 01/30/2016 Inactive Aspirin For Children 81 mg Chewable Tab RxNorm: 306305 1 Tablet(s) PO daily No Start Date 08/07/2018 Inactive Zyrtec-D 5 mg-120 mg 12 hr Tab RxNorm: 8483581 1 Tablet(s) PO daily No Start Date 07/29/2015 Inactive Medication Administered Medication Codes Instructions Start Date Status Kenalog 40 mg/mL suspension for injection RxNorm: 2603444 1Milliliter 04/05/2017 No longer Active Kenalog 40 mg/mL suspension for injection RxNorm: 5308831 1Milliliter 02/24/2017 No longer Active Kenalog 40 mg/mL suspension for injection RxNorm: 9845522 1Milliliter 09/16/2016 No longer Active Kenalog 40 mg/mL suspension for injection RxNorm: 2196590 [place] 07/30/2015 No longer Active Kenalog 40 mg/mL suspension for injection RxNorm: 0690359 1Milliliter 03/22/2015 No longer Active Rocephin 1 gram Solution for Injection RxNorm: 2253028 03/18/2012 No longer Active Rocephin 500 mg Solution for Injection RxNorm: 1384516 1Milliliter 07/02/2011 No longer Active Kenalog 40 mg/mL Susp for Injection RxNorm: 0509840 1Milliliter 07/02/2011 No longer Active Immunizations Vaccine [...] Item Item Code Result Date Comp Metabolic Pyo741 NA 139 mEq/L 03/15/2018 Comp Metabolic Knw034 K 4.2 mEq/L 03/15/2018 Comp Metabolic Peb673 CL 101 mEq/L 03/15/2018 Comp Metabolic Ech271 CO2 32.0 mEq/L 03/15/2018 Comp Metabolic Kxv567 ANION GAP 10 03/15/2018 Comp Metabolic Hgz733 GLUCOSE 94 mg/dL 03/15/2018 Comp Metabolic Ipx156 Creat 0.9 mg/dL 03/15/2018 Comp Metabolic Bwv992 eGFR 104 ml/min/1.73m2 03/15/2018 Comp Metabolic Yzm101 BUN 14 mg/dL 03/15/2018 Comp Metabolic Smz714 B/C Ratio 16.3 Ratio 03/15/2018 Comp Metabolic Aty018 CALCIUM 9.8 mg/dL 03/15/2018 Comp Metabolic Zqc673 ALK PHOS 75 U/L 03/15/2018 Comp Metabolic Had980 AST(SGOT) 20 U/L 03/15/2018 Comp Metabolic Eym252 ALT(SGPT) 30 U/L 03/15/2018 Comp Metabolic Mwo218 BILI T 1.2 mg/dL 03/15/2018 Comp Metabolic Ipm310 ALBUMIN 4.7 g/dL 03/15/2018 Comp Metabolic Dud566 TPRO 7.2 g/dL 03/15/2018 Comp Metabolic Qfa684 GLOB 2.5 g/dL 03/15/2018 Comp Metabolic Tew093 A/G Ratio 1.9 Ratio 03/15/2018 Comp Metabolic Fds225 Osmo 278 mOsmo 03/15/2018 Urine Culture Ucult [...] if culture needed 01/04/2018 Hepatitis Panel (Abc) 05687 HEPATITIS B SURFACE AG . 12/09/2017 Hepatitis Panel (Abc) 95533 HEPATITIS B SURFACE AG NEGATIVE 12/09/2017 Hepatitis Panel (Abc) 99390 HEPATITIS B CORE AB, IGM . 12/09/2017 Hepatitis Panel (Abc) 94167 HEPATITIS B CORE AB, IGM NEGATIVE 12/09/2017 Hepatitis Panel (Abc) 67980 HEPATITIS A AB, IGM . 12/09/2017 Hepatitis Panel (Abc) 36675 HEPATITIS A AB, IGM NEGATIVE 12/09/2017 Hepatitis Panel (Abc) 37791 HEPATITIS C ANTIBODY . 12/09/2017 Hepatitis Panel (Abc) 09334 HEPATITIS C ANTIBODY NEGATIVE 12/09/2017 Tsh Ord6 TSH (3rd IS) 2.24 uIU/mL 11/29/2017 Comp Metabolic Fug958 NA 138 mEq/L 11/29/2017 Comp Metabolic Sqh716 K 4.1 mEq/L 11/29/2017 Comp Metabolic Nyr958 CL 101 mEq/L 11/29/2017 Comp Metabolic Ias298 CO2 30.0 mEq/L 11/29/2017 Comp Metabolic Vbx163 ANION GAP 11 11/29/2017 Comp Metabolic Uoe335 GLUCOSE 89 mg/dL 11/29/2017 Comp Metabolic Enr720 Creat 0.8 mg/dL 11/29/2017 Comp Metabolic Zjz069 eGFR 107 ml/min/1.73m2 11/29/2017 Comp Metabolic Ppf377 BUN 15 mg/dL 11/29/2017 Comp Metabolic Los493 B/C Ratio 17.9 Ratio 11/29/2017 Comp Metabolic Upp254 CALCIUM 9.4 mg/dL 11/29/2017 Comp Metabolic Ayd595 ALK PHOS 71 U/L 11/29/2017 Comp Metabolic Xsx108 AST(SGOT) 19 U/L 11/29/2017 Comp Metabolic Ufn495 ALT(SGPT) 27 U/L 11/29/2017 Comp Metabolic Cwm527 BILI T 1.8 mg/dL 11/29/2017 Comp Metabolic Elx776 ALBUMIN 4.4 g/dL 11/29/2017 Comp Metabolic Typ877 TPRO 6.8 g/dL 11/29/2017 Comp Metabolic Vtt854 GLOB 2.5 g/dL 11/29/2017 Comp Metabolic Mqk864 A/G Ratio 1.8 Ratio 11/29/2017 Comp Metabolic Wcs612 Osmo 276 mOsmo 11/29/2017 Urine Culture Ucult [...] 27.4 pg 11/29/2017 Cbc With Differential Ord2 Holmes% 8.3 % 11/29/2017 Cbc With Differential Ord2 [...] 3.16 K/ul 11/29/2017 Cbc With Differential Ord2 Holmes ABS# 0.7 K/ul 11/29/2017 Cbc With Differential Ord2 Eos ABS# 0.2 K/ul 11/29/2017 Cbc With Differential Ord2 Baso ABS# 0.0 K/ul 11/29/2017 C RAP A SC [id number] Strep A Negative 08/20/2016 GC/CHL PRB 0382272 SOURCE CASSANDRA UNKNOWN 03/19/2012 GC/CHL PRB 7040171 CHLM PROBE NEG 03/19/2012 GC/CHL PRB 1892499 GC PROBE NEG 03/19/2012 URINALYSIS NONAUTO W/O SCOPE 62956 Specific [place] 1.010 DateTime(Free Text in Aprima) URINALYSIS NONAUTO W/O SCOPE 08899 PH 6.5 DateTime(Free Text in Aprima) URINALYSIS NONAUTO W/O SCOPE 18789 GLUCOSE neg DateTime(Free Text in Aprima) URINALYSIS NONAUTO W/O SCOPE 98179 Protein neg DateTime(Free Text in Aprima) URINALYSIS NONAUTO W/O SCOPE 70251 Blood neg DateTime(Free Text in Aprima) URINALYSIS NONAUTO W/O SCOPE 17206 Bilirubin neg DateTime(Free Text in Aprima) URINALYSIS NONAUTO W/O SCOPE 05897 Ketones neg DateTime(Free Text in Aprima) URINALYSIS NONAUTO W/O SCOPE 77266 Urobilinogen neg DateTime(Free Text in Aprima) URINALYSIS NONAUTO W/O SCOPE 72611 Nitrite neg DateTime(Free Text in Aprima) URINALYSIS NONAUTO W/O SCOPE 94420 Leukocytes neg DateTime(Free Text in Aprima) Review [...] time 07/30/2015 None Full Exam - General [facility] Psychiatric orientation/consciousness Overall: oriented to person, place [...] Codes Date URINALYSIS NONAUTO W/O SCOPE CPT-4: 89646 06/28/2018 TRIAMCINOLONE ACET INJ NOS CPT-4: J3301 04/05/2017 TRIAMCINOLONE ACET INJ NOS CPT-4: J3301 02/24/2017 THER/PROPH/DIAG INJ SC/IM CPT-4: 96055 09/16/2016 TRIAMCINOLONE ACET INJ NOS CPT-4: J3301 09/16/2016 TRIAMCINOLONE ACET INJ NOS CPT-4: J3301 07/30/2015 TRIAMCINOLONE ACET INJ NOS CPT-4: J3301 03/22/2015 ROCEPHIN, PER 250 MG CPT- 4: J0696 03/18/2012 URINALYSIS NONAUTO W/O SCOPE CPT-4: 52227 03/17/2012 ROCEPHIN, PER 250 MG CPT- 4: J0696 06/30/2011 TRIAMCINOLONE ACET INJ NOS CPT-4: J3301 06/30/2011 Vital Signs Date Vital 08/08/2018 Blood Pressure 1: 122/80 Code: 8480-6 Heart Rate 1: 84 bpm Height: 6'2" SpO2: 98% 06/28/2018 Blood Pressure 1: 122/82 Code: 8480-6 BMI: 24.0 Code: 67171-2 Heart Rate 1: 91 bpm Height: 6'2" SpO2: 98% Weight: 187 lbs 02/22/2018 Blood Pressure 1: 110/80 Code: 8480-6 Heart Rate 1: 74 bpm Height: 6'2" SpO2: 98% Weight: 02/16/2018 Blood Pressure 1: 130/72 Code: 8480-6 BMI: 24.0 Code: 83185-8 Heart Rate 1: 82 bpm Height: 6'2" SpO2: 97% Weight: 187 lbs 12/20/2017 Blood Pressure 1: 128/88 Code: 8480-6 BMI: 23.1 Code: 91059-7 Heart Rate 1: 86 bpm Height: 6'2" SpO2: 98% Weight: 180 lbs 11/26/2017 Blood Pressure 1: 122/80 Code: 8480-6 BMI: 23.1 Code: 42918-5 Heart Rate 1: 56 bpm Height: 6'2" SpO2: 98% Weight: 180 lbs 07/21/2017 Blood Pressure 1: 120/78 Code: 8480-6 BMI: 21.8 Code: 19923-2 Heart Rate 1: 88 bpm Height: 6'2" SpO2: 97% Weight: 170 lbs 04/05/2017 Blood Pressure 1: 126/68 Code: 8480-6 BMI: 22.6 Code: 96718-1 Heart Rate 1: 80 bpm Height: 6'2" SpO2: 98% Weight: 176 lbs 03/22/2017 Blood Pressure 1: 120/72 Code: 8480-6 BMI: 22.5 Code: 78149-2 Heart Rate 1: 82 bpm Height: 6'2" SpO2: 98% Temperature: 36.8 (C) / 98.3 (F) Weight: 175 lbs 02/24/2017 Blood Pressure 1: 120/62 Code: 8480-6 BMI: 22.5 Code: 77538-3 Heart Rate 1: 84 bpm Height: 6'2" SpO2: 98% Weight: 175 lbs 08/20/2016 Blood Pressure 1: 126/78 Code: 8480-6 BMI: 24.1 Code: 70137-4 Heart Rate 1: 84 bpm Height: 6'2" SpO2: 98% Temperature: 37.1 (C) / 98.8 (F) Weight: 188 lbs 06/10/2016 Blood Pressure 1: 124/62 Code: 8480-6 BMI: 24.4 Code: 12650-5 Heart Rate 1: 85 bpm Height: 6'2" SpO2: 98% Weight: 190 lbs 02/07/2016 Blood Pressure 1: 128/72 Code: 8480-6 BMI: 23.6 Code: 98882-7 Heart Rate 1: 78 bpm Height: 6'2" SpO2: 96% Weight: 184 lbs 01/08/2016 Blood Pressure 1: 108/70 Code: 8480-6 BMI: 23.4 Code: 16776-8 Heart Rate 1: 84 bpm Height: 6'2" SpO2: 96% Weight: 182 lbs 07/30/2015 Blood Pressure 1: 110/64 Code: 8480-6 BMI: 22.6 Code: 66475-2 Heart Rate 1: 78 bpm Height: 6'2" SpO2: 98% Weight: 176 lbs 03/22/2015 Blood Pressure 1: 126/80 Code: 8480-6 BMI: 24.0 Code: 10139-6 Heart Rate 1: 76 bpm Height: 6'2" SpO2: 98% Weight: 187 lbs 06/20/2012 Blood Pressure 1: 110/76 Code: 8480-6 Heart Rate 1: 100 bpm Temperature: 38.7 (C) / 101.7 (F) Weight: 169 lbs 03/18/2012 Blood Pressure 1: 132/70 Code: 8480-6 Heart Rate 1: 80 bpm Weight: 160 lbs 06/30/2011 Blood Pressure 1: 110/72 Code: 8480-6 BMI: 23.9 Code: 07042-6 Heart Rate 1: 72 bpm Height: 6'2" Respiratory Rate: 20 bpm Weight: 186 lbs 03/09/2011 Blood Pressure 1: 96/58 Code: 8480-6 BMI: 23.2 Code: 56107- 5 Heart Rate 1: 80 bpm Height: 6'2" Respiratory Rate: 16 bpm Weight: 183 lbs 01/12/2011 Blood Pressure 1: 126/80 Code: 8480-6 BMI: 23.5 Code: 51701-8 Heart Rate 1: 82 bpm Height: 6'2" [...] 04/05/2017 None rash Location-Head/Neck on the left mandaen 04/05/2017 None rash Location-Head/Neck on the forehead [...] Encounters Encounter Performer Location Codes Date () 48790 EST. PATIENT, LEVEL III Diagnosis: Candidiasis of skin and nail[ICD10: B37.2] Gin Riggs MD, [facility] CPT-4: 65922 08/08/2018 ([id number]) 58017 EST. 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 PATIENT, LEVEL III Diagnosis: Dysuria[ICD10: R30.0] Cherry Riggs MD, [facility] CPT-4: 08243 02/16/2018 ([id number]) 64613 EST. PATIENT, LEVEL III Diagnosis: Pain in left knee[ICD10: M25.562] Gin Riggs MD, [facility] CPT- 4: 39701 12/20/2017 ([id number]) PREV VISIT EST AGE 40-64 Diagnosis: Encounter for general adult medical examination without abnormal findings[ICD10: Z00.00] Diagnosis: Dysuria[ICD10: R30.0] Diagnosis: Other allergic rhinitis[ICD10: J30.89] Gin Riggs MD, [facility] CPT-4: 13469 11/26/2017 07828 EST. PATIENT, LEVEL IV Diagnosis: Other acute sinusitis[ICD10: J01.80] Diagnosis: Other allergic rhinitis[ICD10: J30.89] Cherry Riggs MD, [facility] CPT- 4: 86753 07/21/2017 64260 EST. PATIENT, LEVEL IV Diagnosis: Allergic contact dermatitis due to plants, except food[ICD10: L23.7] Cherry Riggs MD, [facility] CPT-4: 43580 04/05/2017 ([id number]) 13708 EST. PATIENT, LEVEL III Diagnosis: Acute recurrent maxillary sinusitis[ICD10: J01.01] Gin Riggs MD, [facility] CPT-4: 07219 03/22/2017 09727 EST. PATIENT, LEVEL IV Diagnosis: Other acute sinusitis[ICD10: J01.80] Diagnosis: Other allergic rhinitis[ICD10: J30.89] Cherry Riggs MD, [facility] CPT- 4: 08717 02/24/2017 ([id number]) 95280 EST. PATIENT, LEVEL III Diagnosis: Acute laryngopharyngitis[ICD10: J06.0] Gin Riggs MD, [facility] CPT-4: 31457 08/20/2016 83677 EST. PATIENT, LEVEL III Diagnosis: Pain in right shoulder[ICD10: M25.511] Cherry Riggs MD, [facility] CPT- 4: 16863 06/10/2016 ([id number]) 08394 EST. PATIENT, LEVEL II Diagnosis: Melanocytic nevi, unspecified[ICD10: D22.9] Gin Riggs MD, [facility] CPT-4: 97385 02/07/2016 75919 EST. PATIENT, LEVEL III Diagnosis: Other acute sinusitis[ICD10: J01.80] Diagnosis: Other allergic rhinitis[ICD10: J30.89] Cherry Riggs MD, [facility] CPT- 4: 62988 01/08/2016 ([id number]) 15539 EST. PATIENT, LEVEL III Diagnosis: Acute recurrent maxillary sinusitis[ICD10: J01.01] Gin Riggs MD, [facility] CPT-4: 88681 07/30/2015 ([id number]) PREV VISIT EST AGE 18-39 Diagnosis: Encounter for general adult medical examination without abnormal findings[ICD10: Z00.00] Diagnosis: Allergic rhinitis, unspecified[ICD10: J30.9] Gin Riggs MD, [facility] CPT-4: 74024 03/22/2015 ([id number]) 30417 EST. PATIENT, LEVEL III Diagnosis: Influenza[ICD9: 487.1] Gin Riggs MD, [facility] CPT-4: 93552 06/20/2012 37449 EST. PATIENT, LEVEL II Diagnosis: DYSURIA[ICD9: 788.1] Diagnosis: Screen for sexually transmitted diseases[ICD9: V74.5] Gin Riggs MD, [facility] CPT-4: 69286 03/18/2012 ([id number]) 89336 EST. PATIENT, LEVEL III Diagnosis: ACUTE SINUSITIS[ICD9: 461.9] [facility] CPT-4: 63073 06/30/2011 75208 EST. PATIENT, LEVEL IV Diagnosis: ESOPHAGEAL REFLUX[ICD9: 530.81] Diagnosis: Constipation[ICD9: 564.00] Claire Riggs MD, [facility] CPT-4: 12968 03/09/2011 OFFICE VISIT, NEW - LEVEL 3 Diagnosis: Encounter for annual health examination[ICD9: V70.0] Diagnosis: Esophageal reflux[ICD9: 530.81] Claire Riggs MD, [facility] CPT-4: 40619 01/12/2011 Plan of Care Planned Activity Notes Codes Status Date Visit Plan: Yeast infection -patient's was positive for yeast infection -will treat patient with diflucan -instructed him to call if symptoms do not resolve and we will re-evaluate or send to urologist for cheryl luation -patient verbalized understanding of plan. 08/08/2018 Patient Education: Patient Medication Summary Completed 08/08/2018 Visit Plan: Dysuria -irritation -UA negative-recommend patient switch to unscented soap/lotion -monitor symptoms and call if they do no resolve Varicocele -check semen analysis 06/28/2018 Appointment: Gin Dooley WPtel: [phone] ([facility] min) [facility] 06/28/2018 Patient Education: Patient Medication Summary Completed 06/28/2018 Patient Education: Patient Medication Summary Completed 03/15/2018 Visit Plan: Varicocele-grade 3 -discussed with Dr Riggs - start an aspirin daily - discussed anti inflammatories, supportive underwear and to call if symptoms do not resolve or if any worse. Patient verbalized understanding of plan. 02/22/2018 Appointment: Gin Dooley WPtel: [phone] (15 min) Moderate 02/22/2018 Patient Education: Patient [...] to urology 02/16/2018 Appointment: Cherry Wagoner WPtel: [phone] (15 min) Moderate 02/16/2018 Patient Education: Patient Medication Summary Completed 02/16/2018 Patient Education: Patient Medication Summary Completed 01/03/2018 Visit Plan: Left knee pain -suspect meniscal injury -will xray knee today and then schedule MRI for further evaluation -discussed rest, ice and anti inflammatories as directed 12/20/2017 Appointment: Gin Dooley WPtel: [phone] [phone] [place] (15 min) Moderate 12/20/2017 Patient Education: Patient Medication Summary Completed 12/20/2017 Care Plan: X-RAY EXAM OF KNEE 3 LOINC : 55409-8 Pending 12/20/2017 Visit Plan: Well Adult - [...] not improve. 11/26/2017 Appointment: Gin Dooley WPtel: [phone] [phone] (15 min) Moderate 11/26/2017 Patient Education: Patient [...] allergy spray. 07/21/2017 Appointment: Cherry Wagoner WPtel: [facility] [place] [address] [place] (15 min) Moderate 07/21/2017 Patient Education: Patient Medication Summary Completed 07/21/2017 Visit Plan: Poison Ruthy - pt is to use topical treatments as directed. Pt is cleanse clothing in hot water with soap, and call if symptoms do not improve or if they worsen. 04/05/2017 Appointment: Cherry Wagoner WPtel: [phone] [facility] [place] (10 min) Simple 04/05/2017 Patient Education: [...] spray. 03/22/2017 Appointment: Gin Dooley WPtel: [phone] [phone] (15 min) Moderate 03/22/2017 Patient Education: Patient [...] the nasal steroid allergy spray. 02/24/2017 Appointment: Cheryr Wagoner WPtel: [phone] [phone] (15 min) Moderate 02/24/2017 Patient Education: Patient [...] fever/discomfort. 08/20/2016 Appointment: Gin Dooley WPtel: [phone] [phone] [place] (10 min) Simple 08/20/2016 Patient Education: [...] for evaluation 02/07/2016 Appointment: Gin Dooley WPtel[phone] (30 min) Complex 02/07/2016 Patient Education: Patient Medication Summary Completed 02/07/2016 Care Plan: Referral Order SNOMED-CT : [id number] Pending 02/07/2016 Visit Plan: Sinusitis - Pt [...] the office 03/22/2015 Appointment: Gin Dooley WPtel: [address] [employer], [place] [phone] Physical 03/22/2015 Patient Education: Patient Medication Summary [...] any worse. 06/20/2012 Appointment: Gin Dooley WPtel: [phone] Sick 06/20/2012 Patient Education: Patient Medication Summary [...] of testing. 03/18/2012 Appointment: Gin Dooley WPtel: [address] [place], [place] [phone] Other 03/18/2012 Patient Education: Patient Medication Summary Completed 03/18/2012 Appointment: Claire Riggs WPtel: [address] [place], [place] [phone] Lab Draw 03/17/2012 Patient Education: Patient Medication [...] not resolve. 06/30/2011 Appointment: Gin Dooley WPtel: [phone] [place] Other 06/30/2011 Patient Education: Patient Medication [...] at 3:30pm. 03/09/2011 Appointment: Claire Riggs WPtel: [facility] [place] [phone] [place] Other 03/09/2011 Patient Education: Patient Medication [...] exercise program. 01/12/2011 Appointment: Claire Riggs WPtel: [facility] [place] New Patient 01/12/2011 Patient Education: Patient [...] do not improve or if they worsen. Zyrtec D Continue flonase Call if your [...] If no improvement will refer to urology aleve twice a day for the next [...] for an antibiotic nasal spray compound that [facility] makes . Sinusitis - Pt [...]
--- OUTSIDE RECORDS SUMMARY | 2018-11-22 07:16 | XMS REPORT | CCD ---
Author Author [facility] Organization [facility] Address [address] [place] [address] Phone Care Team Providers Care Bioinformatics Specialist Name Role Phone Claire Riggs PP Unavailable CCM Unavailable Summary Purpose Interface Exchange Insurance Providers Payer name Policy type / Coverage type Covered republican ID Effective Begin Date Effective End Date Blue Cross Blue [facility] [employer]/Blue [facility] [id number] Unknown Family history Mother Diagnosis Age At Onset Cancer Unknown Brother Diagnosis Age At Onset No Family Disease Entered N/A Grandmother Diagnosis Age At Onset Cancer Unknown Father Diagnosis Age At Onset No Family Disease Entered N/A Social History Social History Element Codes Description Effective Dates Marital status Unknown 01/12/2011 Employment Unknown 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 Unknown Has never used illegal drugs 01/12/2011 Allergies, Adverse Reactions, Alerts Substance Reaction Codes Entered Date Inactivated Date Status * NO KNOWN FOOD ALLERGIES Unknown 01/12/2011 No Inactive Date Active bactrim RxNorm: 662328 03/22/2015 No Inactive Date Active Past Medical History Illness Codes Condition Status Onset Date Resolved Date Dysuria ICD-9: 788.1 ICD-10: R30.0 Active 11/26/2017 [...] Problems Condition Codes Effective Dates Condition Status Dysuria ICD-9: 788.1 ICD-10: R30.0 11/26/2017 Active [...] Start Date Stop Date Status Fill Instructions omeprazole 20 mg capsule,delayed release RxNorm: 096496 1 Capsule(s) PO daily 06/28/2018 10/25/2018 Active Flonase 50 mcg/actuation nasal spray,suspension RxNorm: 5756887 1 [place] NASAL BID 06/22/2018 No Stop Date Active Zyrtec-D 5 mg-120 mg tablet,extended release RxNorm: 1922150 1 Tablet(s) PO BID as needed 06/22/2018 No Stop Date Active Augmentin 875 mg-125 mg tablet RxNorm: 115704 1 Tablet(s) PO BID 06/02/2018 06/08/2018 Inactive Zithromax Z-Surya 250 mg tablet RxNorm: 117978 1 Tablet(s) PO UD 03/24/2018 06/01/2018 Inactive Flonase 50 mcg/actuation nasal spray,suspension RxNorm: 9601457 1 [place] NASAL BID 03/01/2018 06/21/2018 Inactive Cipro 500 mg tablet RxNorm: 518558 1 Tablet(s) PO BID 02/16/2018 02/25/2018 Inactive Diflucan 150 mg tablet RxNorm: 118876 1 Tablet(s) PO daily start after cipro is finished 02/16/2018 02/22/2018 Inactive Augmentin 875 mg-125 mg tablet RxNorm: 738963 1 Tablet(s) PO BID 12/24/2017 12/23/2017 Inactive Augmentin 875 mg-125 mg tablet RxNorm: 183338 1 Tablet(s) PO BID 12/24/2017 12/30/2017 Inactive Keflex 500 mg capsule RxNorm: 734957 1 Capsule(s) PO TID 12/08/2017 12/14/2017 Inactive Yuridia-D 12 Hour 60 mg-120 mg tablet,extended release RxNorm: 758030 1 Tablet(s) PO BID 12/06/2017 No Stop Date Active Keflex 500 mg capsule RxNorm: 117070 1 Capsule(s) PO TID 11/26/2017 12/02/2017 Inactive Flonase 50 mcg/actuation nasal spray,suspension RxNorm: 7055114 1 [place] NASAL BID 11/15/2017 02/28/2018 Inactive Yuridia Allergy 180 mg tablet RxNorm: 890014 1 Tablet(s) PO daily 10/27/2017 10/27/2017 Inactive Zyrtec-D 5 mg-120 mg tablet,extended release RxNorm: 9625486 1 Tablet(s) PO BID as needed 10/20/2017 06/21/2018 Inactive Yuridia Allergy 180 mg tablet RxNorm: 935792 1 Tablet(s) PO daily 09/21/2017 10/20/2017 Inactive Augmentin 500 mg-125 mg tablet RxNorm: 322065 1 Tablet(s) PO TID 07/21/2017 07/30/2017 Inactive Yuridia Allergy 180 mg tablet RxNorm: 381139 1 Tablet(s) PO daily 07/21/2017 08/19/2017 Inactive Zyrtec-D 5 mg-120 mg tablet,extended release RxNorm: 6901766 1 Tablet(s) PO BID as needed 06/15/2017 10/19/2017 Inactive Zyrtec-D 5 mg-120 mg tablet,extended release RxNorm: 2139269 1 Tablet(s) PO BID as needed 05/11/2017 02/21/2018 Inactive prednisone 10 mg tablet RxNorm: 838026 Tablet(s) PO 04/05/2017 12/07/2017 Inactive 6,5,4,3,2,1 Kenalog 40 mg/mL suspension for injection RxNorm: 3997362 1 Milliliter(s) Inj 04/05/2017 04/05/2017 Inactive Flonase 50 mcg/actuation nasal spray,suspension RxNorm: 3557878 1 [place] NASAL BID 04/01/2017 11/14/2017 Inactive Augmentin 875 mg-125 mg tablet RxNorm: 647924 1 Tablet(s) PO BID 03/22/2017 03/28/2017 Inactive prednisone 20 mg tablet RxNorm: 500829 2 Tablet(s) PO daily 03/02/2017 03/06/2017 Inactive prednisone 20 mg tablet RxNorm: 699298 2 Tablet(s) PO daily 03/02/2017 03/01/2017 Inactive Zithromax Z-Surya 250 mg tablet RxNorm: 862723 1 Tablet(s) PO UD 02/24/2017 03/21/2017 Inactive Kenalog 40 mg/mL suspension for injection RxNorm: 4500469 1 Milliliter(s) Inj 02/24/2017 02/24/2017 Inactive Zyrtec-D 5 mg-120 mg tablet,extended release RxNorm: 5195074 1 Tablet(s) PO BID as needed 02/05/2017 05/10/2017 Inactive Zyrtec-D 5 mg-120 mg tablet,extended release RxNorm: 4913823 1 Tablet(s) PO BID as needed 12/01/2016 02/04/2017 Inactive Zyrtec-D 5 mg-120 mg tablet,extended release RxNorm: 4365430 1 Tablet(s) PO BID as needed 11/03/2016 11/30/2016 Inactive Zyrtec-D 5 mg-120 mg tablet,extended release RxNorm: 8477537 1 Tablet(s) PO BID as needed 10/09/2016 11/02/2016 Inactive Kenalog 40 mg/mL suspension for injection RxNorm: 2427593 1 Milliliter(s) Inj 09/16/2016 09/16/2016 Inactive Levaquin 500 mg tablet RxNorm: 334811 1 Tablet(s) PO daily 09/15/2016 09/24/2016 Inactive Levaquin 500 mg tablet RxNorm: 907154 1 Tablet(s) PO daily 09/15/2016 09/14/2016 Inactive prednisone 20 mg tablet RxNorm: 645947 1 Tablet(s) PO BID 09/15/2016 09/19/2016 Inactive amoxicillin 500 mg tablet RxNorm: 748664 1 Tablet(s) PO BID 08/20/2016 08/29/2016 Inactive Augmentin 875 mg-125 mg tablet RxNorm: 772757 1 Tablet(s) PO BID 04/23/2016 04/28/2016 Inactive Zyrtec-D 5 mg-120 mg tablet,extended release RxNorm: 8793669 1 Tablet(s) PO BID as needed 01/31/2016 10/08/2016 Inactive Flonase 50 mcg/actuation nasal spray,suspension RxNorm: 0976545 1 [place] NASAL BID 01/08/2016 01/22/2016 Inactive Flonase 50 mcg/actuation nasal spray,suspension RxNorm: 5287312 1 [place] NASAL BID 01/08/2016 01/07/2016 Inactive 1 spray each nare x 5 days Zithromax Z-Surya 250 mg tablet RxNorm: 926614 Tablet(s) PO 01/08/2016 01/30/2016 Inactive Zyrtec-D 5 mg-120 mg tablet,extended release RxNorm: 7150586 1 Tablet(s) PO BID as needed 01/08/2016 01/30/2016 Inactive Augmentin 875 mg-125 mg tablet RxNorm: 053715 1 Tablet(s) PO BID 10/08/2015 10/17/2015 Inactive Augmentin 875 mg-125 mg tablet RxNorm: 453359 1 Tablet(s) PO BID 10/08/2015 10/07/2015 Inactive prednisone 20 mg tablet RxNorm: 828747 1 Tablet(s) PO BID 08/01/2015 08/05/2015 Inactive prednisone 20 mg tablet RxNorm: 289728 1 Tablet(s) PO BID 08/01/2015 07/31/2015 Inactive Kenalog 40 mg/mL suspension for injection RxNorm: 2147501 Milliliter(s) Inj 07/30/2015 07/30/2015 Inactive Zyrtec-D 5 mg-120 mg tablet,extended release RxNorm: 5939179 1 Tablet(s) PO BID as needed 07/30/2015 01/07/2016 Inactive Augmentin 875 mg-125 mg tablet RxNorm: 020236 1 Tablet(s) PO BID 07/30/2015 08/05/2015 Inactive Kenalog 40 mg/mL suspension for injection RxNorm: 9428507 1 Milliliter(s) Inj 03/22/2015 03/22/2015 Inactive Flonase 50 mcg/actuation Nasal [place] RxNorm: 7047065 1 [place] NASAL 07/12/2012 07/11/2012 Inactive 1 spray each nare x 5 days Flonase 50 mcg/actuation Nasal [place] RxNorm: 6853833 1 [place] NASAL 07/12/2012 07/16/2012 Inactive 1 spray each nare x 5 days cefdinir 300 mg capsule RxNorm: 107311 1 Capsule(s) PO BID 07/12/2012 07/18/2012 Inactive cefdinir 300 mg capsule RxNorm: 870589 1 Capsule(s) PO BID 07/12/2012 07/11/2012 Inactive Tamiflu 75 mg capsule RxNorm: 037330 1 Capsule(s) PO BID 06/20/2012 06/24/2012 Inactive Tamiflu 75 mg capsule RxNorm: 022502 1 Capsule(s) PO BID 06/20/2012 06/19/2012 Inactive Diflucan 150 mg tablet RxNorm: 238080 1 Tablet(s) PO daily 04/21/2012 05/04/2012 Inactive nystatin 100,000 unit/g Topical Cream RxNorm: 383344 1 Application TOP TID 04/13/2012 05/02/2012 Inactive one application to groin tid Diflucan 150 mg tablet RxNorm: 401496 1 Tablet(s) PO daily 04/04/2012 04/06/2012 Inactive nystatin 100,000 unit/g Topical Cream RxNorm: 960923 1 Application TOP TID 04/04/2012 04/03/2012 Inactive one application to groin tid x 10 day nystatin 100,000 unit/g Topical Cream RxNorm: 499409 1 Application TOP TID 04/04/2012 04/12/2012 Inactive one application to groin tid x 10 day Diflucan 150 mg tablet RxNorm: 220725 1 Tablet(s) PO daily 03/23/2012 03/22/2012 Inactive Diflucan 150 mg tablet RxNorm: 139673 1 Tablet(s) PO daily 03/23/2012 03/29/2012 Inactive Rocephin 1 gram Solution for Injection RxNorm: 048040 Inj 03/18/2012 03/18/2012 Inactive Augmentin 500 mg-125 mg tablet RxNorm: 517870 1 Tablet(s) PO TID 03/11/2012 03/10/2012 Inactive Augmentin 500 mg-125 mg tablet RxNorm: 427404 1 Tablet(s) PO TID 03/11/2012 03/17/2012 Inactive Kenalog 40 mg/mL Susp for Injection RxNorm: 1307941 1 Milliliter(s) Inj 07/02/2011 07/02/2011 Inactive Rocephin 500 mg Solution for Injection RxNorm: 292036 1 Milliliter(s) Inj 07/02/2011 07/02/2011 Inactive Bactrim DS 800 mg-160 mg Tab RxNorm: 029434 1 Tablet(s) PO BID 06/30/2011 07/09/2011 Inactive Aspirin For Children 81 mg Chewable Tab RxNorm: 375950 1 Tablet(s) PO daily No Start Date Active multivitamin Oral RxNorm: Oral No Start Date Active omeprazole 40 mg Cap, Delayed Release RxNorm: 203612 1 Capsule(s) PO PRN No Start Date Active Yuridia-D 12 Hour 60 mg-120 mg tablet,extended release RxNorm: 300475 1 Tablet(s) PO BID No Start Date 12/05/2017 Inactive Zithromax 500 mg tablet RxNorm: 752165 2 Tablet(s) PO daily No Start Date 01/30/2016 Inactive Zyrtec-D 5 mg-120 mg 12 hr Tab RxNorm: 8319122 1 Tablet(s) PO daily No Start Date 07/29/2015 Inactive Medication Administered Medication Codes Instructions Start Date Status Kenalog 40 mg/mL suspension for injection RxNorm: 9287724 1Milliliter 04/05/2017 No longer Active Kenalog 40 mg/mL suspension for injection RxNorm: 1456868 1Milliliter 02/24/2017 No longer Active Kenalog 40 mg/mL suspension for injection RxNorm: 9014489 1Milliliter 09/16/2016 No longer Active Kenalog 40 mg/mL suspension for injection RxNorm: 0445761 Milliliter 07/30/2015 No longer Active Kenalog 40 mg/mL suspension for injection RxNorm: 1392237 1Milliliter 03/22/2015 No longer Active Rocephin 1 gram Solution for Injection RxNorm: 968964 03/18/2012 No longer Active Kenalog 40 mg/mL Susp for Injection RxNorm: 1060655 1Milliliter 07/02/2011 No longer Active Rocephin 500 mg Solution for Injection RxNorm: 503925 1Milliliter 07/02/2011 No longer Active Immunizations Vaccine Codes Date Status Tetanus, Diptheria, Pertussis Unknown 05/23/2010 completed Assessments Condition Codes Effective Dates Dysuria ICD-10: R30.0 ICD-9: 788.1 06/28/2018 Scrotal [...] Visit Reason For Visit Effective Dates Notes dysuria 06/28/2018 cyst 02/22/2018 urinary frequency 02/16/2018 [...] Item Item Code Result Date Comp Metabolic Hgq622 NA 139 mEq/L 03/15/2018 Comp Metabolic Jmf988 K 4.2 mEq/L 03/15/2018 Comp Metabolic Vdb067 CL 101 mEq/L 03/15/2018 Comp Metabolic Tup987 CO2 32.0 mEq/L 03/15/2018 Comp Metabolic Nyg727 ANION GAP 10 03/15/2018 Comp Metabolic Ezf227 GLUCOSE 94 mg/dL 03/15/2018 Comp Metabolic Vwo408 Creat 0.9 mg/dL 03/15/2018 Comp Metabolic Hna795 eGFR 104 ml/min/1.73m2 03/15/2018 Comp Metabolic Ujp415 BUN 14 mg/dL 03/15/2018 Comp Metabolic Taw294 B/C Ratio 16.3 Ratio 03/15/2018 Comp Metabolic Pot878 CALCIUM 9.8 mg/dL 03/15/2018 Comp Metabolic Xws024 ALK PHOS 75 U/L 03/15/2018 Comp Metabolic Ppw905 AST(SGOT) 20 U/L 03/15/2018 Comp Metabolic Fym162 ALT(SGPT) 30 U/L 03/15/2018 Comp Metabolic Hxf208 BILI T 1.2 mg/dL 03/15/2018 Comp Metabolic Bhf571 ALBUMIN 4.7 g/dL 03/15/2018 Comp Metabolic Ipy604 TPRO 7.2 g/dL 03/15/2018 Comp Metabolic Nqj489 GLOB 2.5 g/dL 03/15/2018 Comp Metabolic Kzk259 A/G Ratio 1.9 Ratio 03/15/2018 Comp Metabolic Tuf506 Osmo 278 mOsmo 03/15/2018 Urine Culture Ucult Complete NO Growth Day 2 01/06/2018 Urine Culture Ucult Preliminary NO Growth Day 1 01/06/2018 Urinalysis Ord28 U-Color Yellow 01/04/2018 Urinalysis [...] U-VOL VOLUME SUFFICIENT (10mL) 01/04/2018 Urinalysis Ord28 U-Com Amorphus phosphates present. Urine saved if culture needed 01/04/2018 Urinalysis Ord28 U-Yeast NEGATIVE 01/04/2018 Hepatitis Panel (Abc) 76594 HEPATITIS B SURFACE AG . 12/09/2017 Hepatitis Panel (Abc) 22944 HEPATITIS B SURFACE AG NEGATIVE 12/09/2017 Hepatitis Panel (Abc) 30968 HEPATITIS B CORE AB, IGM . 12/09/2017 Hepatitis Panel (Abc) 64172 HEPATITIS B CORE AB, IGM NEGATIVE 12/09/2017 Hepatitis Panel (Abc) 54322 HEPATITIS A AB, IGM . 12/09/2017 Hepatitis Panel (Abc) 89481 HEPATITIS A AB, IGM NEGATIVE 12/09/2017 Hepatitis Panel (Abc) 92876 HEPATITIS C ANTIBODY . 12/09/2017 Hepatitis Panel (Abc) 93673 HEPATITIS C ANTIBODY NEGATIVE 12/09/2017 Tsh Ord6 TSH (3rd IS) 2.24 uIU/mL 11/29/2017 Comp Metabolic Btd026 NA 138 mEq/L 11/29/2017 Comp Metabolic Ejv586 K 4.1 mEq/L 11/29/2017 Comp Metabolic Xzu569 CL 101 mEq/L 11/29/2017 Comp Metabolic Hfc315 CO2 30.0 mEq/L 11/29/2017 Comp Metabolic Ezv530 ANION GAP 11 11/29/2017 Comp Metabolic Ydb383 GLUCOSE 89 mg/dL 11/29/2017 Comp Metabolic Ubk710 Creat 0.8 mg/dL 11/29/2017 Comp Metabolic Agi076 eGFR 107 ml/min/1.73m2 11/29/2017 Comp Metabolic Vrc173 BUN 15 mg/dL 11/29/2017 Comp Metabolic Qnq219 B/C Ratio 17.9 Ratio 11/29/2017 Comp Metabolic Rzq701 CALCIUM 9.4 mg/dL 11/29/2017 Comp Metabolic Ldl164 ALK PHOS 71 U/L 11/29/2017 Comp Metabolic Ecg611 AST(SGOT) 19 U/L 11/29/2017 Comp Metabolic Knc468 ALT(SGPT) 27 U/L 11/29/2017 Comp Metabolic Dma114 BILI T 1.8 mg/dL 11/29/2017 Comp Metabolic Nef742 ALBUMIN 4.4 g/dL 11/29/2017 Comp Metabolic Pdp376 TPRO 6.8 g/dL 11/29/2017 Comp Metabolic Icx622 GLOB 2.5 g/dL 11/29/2017 Comp Metabolic Jld776 A/G Ratio 1.8 Ratio 11/29/2017 Comp Metabolic Lye708 Osmo 276 mOsmo 11/29/2017 Urine Culture Ucult Complete NO Growth Day 2 11/29/2017 Urine Culture Ucult Preliminary NO Growth Day 1 11/29/2017 Lipid Ord30 CHOL 178 mg/dL 11/29/2017 Lipid Ord30 HDL 32.0 mg/dl 11/29/2017 Lipid Ord30 TRIG 91 mg/dL 11/29/2017 Lipid Ord30 LDL 128 mg/dL 11/29/2017 Lipid Ord30 C/HDL 5.6 Ratio 11/29/2017 Cbc With Differential Ord2 WBC 8.47 K/ul 11/29/2017 Cbc With Differential Ord2 RBC 5.37 M/ul 11/29/2017 Cbc With Differential Ord2 HGB 14.7 g/dl 11/29/2017 Cbc With Differential Ord2 Neut% 52.5 % 11/29/2017 Cbc With Differential Ord2 HCT 44.4 % 11/29/2017 Cbc With Differential Ord2 Lymph% 37.3 % 11/29/2017 Cbc With Differential Ord2 MCV 82.7 fl 11/29/2017 Cbc With Differential Ord2 [place]% 8.3 % 11/29/2017 Cbc With Differential Ord2 MCH 27.4 pg 11/29/2017 Cbc With Differential Ord2 MCHC 33.1 pg 11/29/2017 Cbc With Differential Ord2 Eos% 1.8 % 11/29/2017 Cbc With Differential Ord2 PLT 280 K/ul 11/29/2017 Cbc With Differential Ord2 Baso% 0.1 % 11/29/2017 Cbc With Differential Ord2 RDW 13.5 % 11/29/2017 Cbc With Differential Ord2 Neut ABS# 4.45 K/ul 11/29/2017 Cbc With Differential Ord2 Lymph ABS# 3.16 K/ul 11/29/2017 Cbc With Differential Ord2 [place] ABS# 0.7 K/ul 11/29/2017 Cbc With Differential Ord2 Eos ABS# 0.2 K/ul 11/29/2017 Cbc With Differential Ord2 Baso ABS# 0.0 K/ul 11/29/2017 C RAP A SC [id number] Strep A Negative 08/20/2016 GC/CHL PRB [id number] SOURCE CASSANDRA UNKNOWN 03/19/2012 GC/CHL PRB [id number] CHLM PROBE NEG 03/19/2012 GC/CHL PRB 3679294 GC PROBE NEG 03/19/2012 URINALYSIS NONAUTO W/O SCOPE 83843 Specific Parker 1.010 DateTime(Free Text in Aprima) URINALYSIS NONAUTO W/O SCOPE 91945 PH 6.5 DateTime(Free Text in Aprima) URINALYSIS NONAUTO W/O SCOPE 15065 GLUCOSE neg DateTime(Free Text in Aprima) URINALYSIS NONAUTO W/O SCOPE 12100 Protein neg DateTime(Free Text in Aprima) URINALYSIS NONAUTO W/O SCOPE 25199 Blood neg DateTime(Free Text in Aprima) URINALYSIS NONAUTO W/O SCOPE 21072 Bilirubin neg DateTime(Free Text in Aprima) URINALYSIS NONAUTO W/O SCOPE 42305 Ketones neg DateTime(Free Text in Aprima) URINALYSIS NONAUTO W/O SCOPE 55738 Urobilinogen neg DateTime(Free Text in Aprima) URINALYSIS NONAUTO W/O SCOPE 16396 Nitrite neg DateTime(Free Text in Aprima) URINALYSIS NONAUTO W/O SCOPE 92789 Leukocytes neg DateTime(Free Text in Apr) Review of Systems System Result Effective Dates Constitutional No recent illness 06/28/2018 Constitutional No [...] nourished 02/16/2018 None Full Exam - General 1995 Eyes conjunctiva/eyelids Overall: conjunctiva clear 02/16/2018 None [...] Codes Date URINALYSIS NONAUTO W/O SCOPE CPT-4: 76989 06/28/2018 TRIAMCINOLONE ACET INJ NOS CPT-4: J3301 04/05/2017 TRIAMCINOLONE ACET INJ NOS CPT-4: J3301 02/24/2017 THER/PROPH/DIAG INJ SC/IM CPT-4: 32243 09/16/2016 TRIAMCINOLONE ACET INJ NOS CPT-4: J3301 09/16/2016 TRIAMCINOLONE ACET INJ NOS CPT-4: J3301 07/30/2015 TRIAMCINOLONE ACET INJ NOS CPT-4: J3301 03/22/2015 ROCEPHIN, PER 250 MG CPT- 4: J0696 03/18/2012 URINALYSIS NONAUTO W/O SCOPE CPT-4: 53431 03/17/2012 ROCEPHIN, PER 250 MG CPT- 4: J0696 06/30/2011 TRIAMCINOLONE ACET INJ NOS CPT-4: J3301 06/30/2011 Vital Signs Date Vital 06/28/2018 Blood Pressure 1: 122/82 Code: 8480-6 BMI: 24.0 Code: 39153-2 Heart Rate 1: 91 bpm Height: 6'2" SpO2: 98% Weight: 187 lbs 02/22/2018 Blood Pressure 1: 110/80 Code: 8480-6 Heart Rate 1: 74 bpm Height: 6'2" SpO2: 98% Weight: 02/16/2018 Blood Pressure 1: 130/72 Code: 8480-6 BMI: 24.0 Code: 52914-1 Heart Rate 1: 82 bpm Height: 6'2" SpO2: 97% Weight: 187 lbs 12/20/2017 Blood Pressure 1: 128/88 Code: 8480-6 BMI: 23.1 Code: 46359-0 Heart Rate 1: 86 bpm Height: 6'2" SpO2: 98% Weight: 180 lbs 11/26/2017 Blood Pressure 1: 122/80 Code: 8480-6 BMI: 23.1 Code: 98979-0 Heart Rate 1: 56 bpm Height: 6'2" SpO2: 98% Weight: 180 lbs 07/21/2017 Blood Pressure 1: 120/78 Code: 8480-6 BMI: 21.8 Code: 72505-7 Heart Rate 1: 88 bpm Height: 6'2" SpO2: 97% Weight: 170 lbs 04/05/2017 Blood Pressure 1: 126/68 Code: 8480-6 BMI: 22.6 Code: 46052-4 Heart Rate 1: 80 bpm Height: 6'2" SpO2: 98% Weight: 176 lbs 03/22/2017 Blood Pressure 1: 120/72 Code: 8480-6 BMI: 22.5 Code: 30941-7 Heart Rate 1: 82 bpm Height: 6'2" SpO2: 98% Temperature: 36.8 (C) / 98.3 (F) Weight: 175 lbs 02/24/2017 Blood Pressure 1: 120/62 Code: 8480-6 BMI: 22.5 Code: 87174-4 Heart Rate 1: 84 bpm Height: 6'2" SpO2: 98% Weight: 175 lbs 08/20/2016 Blood Pressure 1: 126/78 Code: 8480-6 BMI: 24.1 Code: 35182-5 Heart Rate 1: 84 bpm Height: 6'2" SpO2: 98% Temperature: 37.1 (C) / 98.8 (F) Weight: 188 lbs 06/10/2016 Blood Pressure 1: 124/62 Code: 8480-6 BMI: 24.4 Code: 72898-3 Heart Rate 1: 85 bpm Height: 6'2" SpO2: 98% Weight: 190 lbs 02/07/2016 Blood Pressure 1: 128/72 Code: 8480-6 BMI: 23.6 Code: 26603-3 Heart Rate 1: 78 bpm Height: 6'2" SpO2: 96% Weight: 184 lbs 01/08/2016 Blood Pressure 1: 108/70 Code: 8480-6 BMI: 23.4 Code: 72066-4 Heart Rate 1: 84 bpm Height: 6'2" SpO2: 96% Weight: 182 lbs 07/30/2015 Blood Pressure 1: 110/64 Code: 8480-6 BMI: 22.6 Code: 74619-1 Heart Rate 1: 78 bpm Height: 6'2" SpO2: 98% Weight: 176 lbs 03/22/2015 Blood Pressure 1: 126/80 Code: 8480-6 BMI: 24.0 Code: 73760-7 Heart Rate 1: 76 bpm Height: 6'2" SpO2: 98% Weight: 187 lbs 06/20/2012 Blood Pressure 1: 110/76 Code: 8480-6 Heart Rate 1: 100 bpm Temperature: 38.7 (C) / 101.7 (F) Weight: 169 lbs 03/18/2012 Blood Pressure 1: 132/70 Code: 8480-6 Heart Rate 1: 80 bpm Weight: 160 lbs 06/30/2011 Blood Pressure 1: 110/72 Code: 8480-6 BMI: 23.9 Code: 91586-6 Heart Rate 1: 72 bpm Height: 6'2" Respiratory Rate: 20 bpm Weight: 186 lbs 03/09/2011 Blood Pressure 1: 96/58 Code: 8480-6 BMI: 23.2 Code: 16900- 5 Heart Rate 1: 80 bpm Height: 6'2" Respiratory Rate: 16 bpm Weight: 183 lbs 01/12/2011 Blood Pressure 1: 126/80 Code: 8480-6 BMI: 23.5 Code: 90378-1 Heart Rate 1: 82 bpm Height: 6'2" Respiratory Rate: 16 bpm Weight: 183 lbs Functional Status No Functional Status data History of Present Illness Symptom Name Status Result Effective Date Notes Quality acute 06/28/2018 None Onset and Resolution [...] 04/05/2017 None rash Location-Head/Neck on the left bahai 04/05/2017 None rash Location-Head/Neck on the forehead [...] data Encounters Encounter Performer Location Codes Date ([id number]) [id number] EST. 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 PATIENT, LEVEL III Diagnosis: Dysuria[ICD10: R30.0] Cherry Riggs MD, [facility] CPT-4: 54121 02/16/2018 ([id number]) 22950 EST. PATIENT, LEVEL III Diagnosis: Pain in left knee[ICD10: M25.562] Gin Riggs MD [facility] CPT- 4: 49013 12/20/2017 ([id number]) PREV VISIT EST AGE 40-64 Diagnosis: Encounter for general adult medical examination without abnormal findings[ICD10: Z00.00] Diagnosis: Dysuria[ICD10: R30.0] Diagnosis: Other allergic rhinitis[ICD10: J30.89] Gin Riggs MD [facility] CPT-4: 39270 11/26/2017 00725 EST. PATIENT, LEVEL IV Diagnosis: Other acute sinusitis[ICD10: J01.80] Diagnosis: Other allergic rhinitis[ICD10: J30.89] Cherry Riggs MD [facility] CPT- 4: 45802 07/21/2017 56026 EST. PATIENT, LEVEL IV Diagnosis: Allergic contact dermatitis due to plants, except food[ICD10: L23.7] Cherry Riggs MD [facility] CPT-4: 54963 04/05/2017 ([id number]) 03113 EST. PATIENT, LEVEL III Diagnosis: Acute recurrent maxillary sinusitis[ICD10: J01.01] Gin Riggs MD [facility] CPT-4: 57051 03/22/2017 17306 EST. PATIENT, LEVEL IV Diagnosis: Other acute sinusitis[ICD10: J01.80] Diagnosis: Other allergic rhinitis[ICD10: J30.89] Cherry Riggs MD, [facility] CPT- 4: 19394 02/24/2017 ([id number]) 06866 EST. PATIENT, LEVEL III Diagnosis: Acute laryngopharyngitis[ICD10: J06.0] Gin Riggs MD, [facility] CPT-4: 72015 08/20/2016 90897 EST. PATIENT, LEVEL III Diagnosis: Pain in right shoulder[ICD10: M25.511] Cherry Riggs MD, [facility] CPT- 4: 76343 06/10/2016 ([id number]) 65084 EST. PATIENT, LEVEL II Diagnosis: Melanocytic nevi, unspecified[ICD10: D22.9] Gin Riggs MD, [facility] CPT-4: 84424 02/07/2016 86412 EST. PATIENT, LEVEL III Diagnosis: Other acute sinusitis[ICD10: J01.80] Diagnosis: Other allergic rhinitis[ICD10: J30.89] Cherry Riggs MD, [facility] CPT- 4: 69889 01/08/2016 ([id number]) 35915 EST. PATIENT, LEVEL III Diagnosis: Acute recurrent maxillary sinusitis[ICD10: J01.01] Gin Riggs MD, [facility] CPT-4: 74772 07/30/2015 ([id number]) PREV VISIT EST AGE 18-39 Diagnosis: Encounter for general adult medical examination without abnormal findings[ICD10: Z00.00] Diagnosis: Allergic rhinitis, unspecified[ICD10: J30.9] Gin Riggs MD, [facility] CPT-4: 60439 03/22/2015 ([id number]) 72614 EST. PATIENT, LEVEL III Diagnosis: Influenza[ICD9: 487.1] Gin Riggs MD, [facility] CPT-4: 05576 06/20/2012 [id number] EST. PATIENT, LEVEL II Diagnosis: DYSURIA[ICD9: 788.1] Diagnosis: Screen for sexually transmitted diseases[ICD9: V74.5] Gin Riggs MD, [facility] CPT-4: 33169 03/18/2012 ([id number]) 85090 EST. PATIENT, LEVEL III Diagnosis: ACUTE SINUSITIS[ICD9: 461.9] Gin Riggs MD, [facility] CPT-4: 29991 06/30/2011 [id number] EST. PATIENT, LEVEL IV Diagnosis: ESOPHAGEAL REFLUX[ICD9: 530.81] Diagnosis: Constipation[ICD9: 564.00] [facility] CPT-4: 15171 03/09/2011 OFFICE VISIT, NEW - LEVEL 3 Diagnosis: Encounter for annual health examination[ICD9: V70.0] Diagnosis: Esophageal reflux[ICD9: 530.81] [facility] CPT-4: 59948 01/12/2011 Plan of Care Planned Activity Notes Codes Status Date Visit Plan: Dysuria -irritation -UA negative-recommend patient switch to unscented soap/lotion -monitor symptoms and call if they do no resolve Varicocele -check semen analysis 06/28/2018 Appointment: Gin Dooley WPtel: [phone] (30 min) Complex 06/28/2018 Patient Education: Patient Medication Summary Completed 06/28/2018 Patient Education: Patient Medication Summary Completed 03/15/2018 Visit Plan: Varicocele-grade 3 -discussed with Dr Riggs - start an aspirin daily - discussed anti inflammatories, supportive underwear and to call if symptoms do not resolve or if any worse. Patient verbalized understanding of plan. 02/22/2018 Appointment: Gin Dooley WPtel: [address] [place], [place] [phone] (15 min) Moderate 02/22/2018 Patient Education: Patient [...] to urology 02/16/2018 Appointment: Cherry Wagoner WPtel: [phone] [id number] (15 min) Moderate 02/16/2018 Patient Education: Patient Medication Summary Completed 02/16/2018 Patient Education: Patient Medication Summary Completed 01/03/2018 Visit Plan: Left knee pain -suspect meniscal injury -will xray knee today and then schedule MRI for further evaluation -discussed rest, ice and anti inflammatories as directed 12/20/2017 Appointment: Gin Dooley WPtel: [phone] [phone] (15 min) Moderate 12/20/2017 Patient Education: Patient Medication Summary Completed 12/20/2017 Care Plan: X-RAY EXAM OF KNEE 3 [facility] : [address]-4 Pending 12/20/2017 Visit Plan: Well Adult - [...] not improve. 11/26/2017 Appointment: Gin Dooley WPtel: [facility]5 [phone] (15 min) Moderate 11/26/2017 Patient Education: Patient [...] allergy spray. 07/21/2017 Appointment: Cherry Wagoner WPtel: [facility]1 [address] (15 min) Moderate 07/21/2017 Patient Education: Patient Medication Summary Completed 07/21/2017 Visit Plan: Poison Ruthy - pt is to use topical treatments as directed. Pt is cleanse clothing in hot water with soap, and call if symptoms do not improve or if they worsen. 04/05/2017 Appointment: Cherry Wagoner WPtel: [facility]2 [address] (10 min) Simple 04/05/2017 Patient Education: [...] allergy spray. 03/22/2017 Appointment: Gin Dooley WPtel: [facility]9 [phone] (15 min) Moderate 03/22/2017 Patient Education: Patient [...] allergy spray. 02/24/2017 Appointment: Cherry Wagoner WPtel: [phone] [phone] (15 min) Moderate 02/24/2017 Patient Education: Patient [...] for fever/discomfort. 08/20/2016 Appointment: Gin Dooley WPtel: [facility]5 [phone] [place] (10 min) Simple 08/20/2016 Patient Education: [...] evaluation 02/07/2016 Appointment: Gin Dooley WPtel: [phone] [phone] [place] (30 min) Complex 02/07/2016 Patient Education: Patient Medication Summary Completed 02/07/2016 Care Plan: Referral Order SNOMED-CT : [id number] Pending 02/07/2016 Visit Plan: Sinusitis - Pt [...] the office 03/22/2015 Appointment: Gin Dooley WPtel: [address] [place], [place] [phone] Physical 03/22/2015 Patient Education: Patient Medication Summary [...] any worse. 06/20/2012 Appointment: Gin Dooley WPtel: [address] [place], [place] [phone] [facility] 06/20/2012 Patient Education: Patient Medication Summary [...] of testing. 03/18/2012 Appointment: Gin Dooley WPtel: [address] [place], [place] [phone] Other 03/18/2012 Patient Education: Patient Medication Summary Completed 03/18/2012 Appointment: Claire Riggs WPtel: [address] [place] [address] Lab Draw 03/17/2012 Patient Education: Patient Medication [...] not resolve. 06/30/2011 Appointment: Gin Dooley WPtel: [address] [place], [place] [phone] Other 06/30/2011 Patient Education: Patient Medication Summary [...] 3:30pm. 03/09/2011 Appointment: Claire Riggs WPtel: [phone] [phone] Other 03/09/2011 Patient Education: Patient Medication Summary Completed 03/09/2011 Patient Education: .[place] Patricia Completed 03/09/2011 Visit Plan: Well Adult - [...] program. 01/12/2011 Appointment: Claire Riggs WPtel: [phone] [phone] New Patient 01/12/2011 Patient Education: Patient Medication [...] spray in the nasal steroid allergy spray. SWITCH TO UNSCENTED SOAP-LOTION SEMEN ANALYSIS . Dysuria -irritation -UA negative-recommend patient switch to unscented soap/lotion -monitor symptoms and call if they do no resolve Varicocele -check semen analysis . ESOPHAGEAL REFLUX- recommend pt to take the omeprazole daily as directed and avoid spicy food, caffiene, peppermint, and acidic foods. Fatty foods may also worsen reflux. Chronic constipation alternating with diarrhea is common to see with Irritable bowel syndrome.. Usethe power pudding recipe to keep the stools soft. Appt with Dr. Bartholomew is for March 25 at 3:30pm. xray left knee aleve 2 pills twice [...] spray in the nasal steroid allergy spray. aleve twice a day for the next [...] not improve or if they worsen. . Abnormal mole-right ankle-patients concerned-refer to Dr Greene for evaluation . Dysuria-UA negative-gc and chlamydia probe today [...] Call if symptoms do not show improvement. COME WEDNESDAY FOR LABS CHECK UA XYZAL [...] call if symptoms do not improve. . Sinusitis - Pt has [...]
--- OUTSIDE RECORDS SUMMARY | 2018-11-22 07:18 | XMS REPORT | CCD ---
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 Name Role Phone Claire Riggs PP Unavailable CCM Unavailable Summary Purpose Interface Exchange Insurance Providers Payer name Policy type / Coverage type Covered constitution party ID Effective Begin Date Effective End Date Blue Cross Blue [facility] Blue Cross/Blue [facility] [id number] Unknown Family history Mother Diagnosis Age At Onset Cancer Unknown Brother Diagnosis Age At Onset No Family Disease Entered N/A Grandmother Diagnosis Age At Onset Cancer Unknown Father Diagnosis Age At Onset No Family Disease Entered N/A Social History Social History Element Codes Description Effective Dates Marital status Unknown 01/12/2011 Employment Unknown 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 Unknown Has never used illegal drugs 01/12/2011 Allergies, Adverse Reactions, Alerts Substance Reaction Codes Entered Date Inactivated Date Status * NO KNOWN FOOD ALLERGIES Unknown 01/12/2011 No Inactive Date Active bactrim RxNorm: 362070 03/22/2015 No Inactive Date Active Past Medical [...] Instructions omeprazole 20 mg capsule,delayed release RxNorm: 500163 1 Capsule(s) PO daily 06/28/2018 10/25/2018 Active Flonase 50 mcg/actuation nasal spray,suspension RxNorm: 0744548 1 [place] NASAL BID 06/22/2018 No Stop Date Active Zyrtec-D 5 mg-120 mg tablet,extended release RxNorm: 9673867 1 Tablet(s) PO BID as needed 06/22/2018 No Stop Date Active Augmentin 875 mg-125 mg tablet RxNorm: 686632 1 Tablet(s) PO BID 06/02/2018 06/08/2018 Inactive Zithromax Z-Surya 250 mg tablet RxNorm: 007966 1 Tablet(s) PO UD 03/24/2018 06/01/2018 Inactive Flonase 50 mcg/actuation nasal spray,suspension RxNorm: 9012532 1 [place] NASAL BID 03/01/2018 06/21/2018 Inactive Cipro 500 mg tablet RxNorm: 919485 1 Tablet(s) PO BID 02/16/2018 02/25/2018 Inactive Diflucan 150 mg tablet RxNorm: 616324 1 Tablet(s) PO daily start after cipro is finished 02/16/2018 02/22/2018 Inactive Augmentin 875 mg-125 mg tablet RxNorm: 080733 1 Tablet(s) PO BID 12/24/2017 12/23/2017 Inactive Augmentin 875 mg-125 mg tablet RxNorm: 454999 1 Tablet(s) PO BID 12/24/2017 12/30/2017 Inactive Keflex 500 mg capsule RxNorm: 204206 1 Capsule(s) PO TID 12/08/2017 12/14/2017 Inactive Yuridia-D 12 Hour 60 mg-120 mg tablet,extended release RxNorm: 133653 1 Tablet(s) PO BID 12/06/2017 No Stop Date Active Keflex 500 mg capsule RxNorm: 116703 1 Capsule(s) PO TID 11/26/2017 12/02/2017 Inactive Flonase 50 mcg/actuation nasal spray,suspension RxNorm: 2379374 1 [place] NASAL BID 11/15/2017 02/28/2018 Inactive Yuridia Allergy 180 mg tablet RxNorm: 231423 1 Tablet(s) PO daily 10/27/2017 10/27/2017 Inactive Zyrtec-D 5 mg-120 mg tablet,extended release RxNorm: 8206380 1 Tablet(s) PO BID as needed 10/20/2017 06/21/2018 Inactive Yuridia Allergy 180 mg tablet RxNorm: 081360 1 Tablet(s) PO daily 09/21/2017 10/20/2017 Inactive Augmentin 500 mg-125 mg tablet RxNorm: 779431 1 Tablet(s) PO TID 07/21/2017 07/30/2017 Inactive Yuridia Allergy 180 mg tablet RxNorm: 478902 1 Tablet(s) PO daily 07/21/2017 08/19/2017 Inactive Zyrtec-D 5 mg-120 mg tablet,extended release RxNorm: 5605060 1 Tablet(s) PO BID as needed 06/15/2017 10/19/2017 Inactive Zyrtec-D 5 mg-120 mg tablet,extended release RxNorm: 3517758 1 Tablet(s) PO BID as needed 05/11/2017 02/21/2018 Inactive prednisone 10 mg tablet RxNorm: 234377 Tablet(s) PO 04/05/2017 12/07/2017 Inactive 6,5,4,3,2,1 Kenalog 40 mg/mL suspension for injection RxNorm: 7864464 1 Milliliter(s) Inj 04/05/2017 04/05/2017 Inactive Flonase 50 mcg/actuation nasal spray,suspension RxNorm: 5268889 1 [place] NASAL BID 04/01/2017 11/14/2017 Inactive Augmentin 875 mg-125 mg tablet RxNorm: 254746 1 Tablet(s) PO BID 03/22/2017 03/28/2017 Inactive prednisone 20 mg tablet RxNorm: 652477 2 Tablet(s) PO daily 03/02/2017 03/06/2017 Inactive prednisone 20 mg tablet RxNorm: 751676 2 Tablet(s) PO daily 03/02/2017 03/01/2017 Inactive Zithromax Z-Surya 250 mg tablet RxNorm: 010000 1 Tablet(s) PO UD 02/24/2017 03/21/2017 Inactive Kenalog 40 mg/mL suspension for injection RxNorm: 9141401 1 Milliliter(s) Inj 02/24/2017 02/24/2017 Inactive Zyrtec-D 5 mg-120 mg tablet,extended release RxNorm: 5325581 1 Tablet(s) PO BID as needed 02/05/2017 05/10/2017 Inactive Zyrtec-D 5 mg-120 mg tablet,extended release RxNorm: 1781470 1 Tablet(s) PO BID as needed 12/01/2016 02/04/2017 Inactive Zyrtec-D 5 mg-120 mg tablet,extended release RxNorm: 7950938 1 Tablet(s) PO BID as needed 11/03/2016 11/30/2016 Inactive Zyrtec-D 5 mg-120 mg tablet,extended release RxNorm: 3858237 1 Tablet(s) PO BID as needed 10/09/2016 11/02/2016 Inactive Kenalog 40 mg/mL suspension for injection RxNorm: 7031201 1 Milliliter(s) Inj 09/16/2016 09/16/2016 Inactive Levaquin 500 mg tablet RxNorm: 391552 1 Tablet(s) PO daily 09/15/2016 09/24/2016 Inactive Levaquin 500 mg tablet RxNorm: 585201 1 Tablet(s) PO daily 09/15/2016 09/14/2016 Inactive prednisone 20 mg tablet RxNorm: 165231 1 Tablet(s) PO BID 09/15/2016 09/19/2016 Inactive amoxicillin 500 mg tablet RxNorm: 648513 1 Tablet(s) PO BID 08/20/2016 08/29/2016 Inactive Augmentin 875 mg-125 mg tablet RxNorm: 744703 1 Tablet(s) PO BID 04/23/2016 04/28/2016 Inactive Zyrtec-D 5 mg-120 mg tablet,extended release RxNorm: 2350178 1 Tablet(s) PO BID as needed 01/31/2016 10/08/2016 Inactive Flonase 50 mcg/actuation nasal spray,suspension RxNorm: 1723047 1 [place] NASAL BID 01/08/2016 01/22/2016 Inactive Flonase 50 mcg/actuation nasal spray,suspension RxNorm: 1927456 1 [place] NASAL BID 01/08/2016 01/07/2016 Inactive 1 spray each nare x 5 days Zithromax Z-Surya 250 mg tablet RxNorm: 019768 Tablet(s) PO 01/08/2016 01/30/2016 Inactive Zyrtec-D 5 mg-120 mg tablet,extended release RxNorm: 0556131 1 Tablet(s) PO BID as needed 01/08/2016 01/30/2016 Inactive Augmentin 875 mg-125 mg tablet RxNorm: 587500 1 Tablet(s) PO BID 10/08/2015 10/17/2015 Inactive Augmentin 875 mg-125 mg tablet RxNorm: 947779 1 Tablet(s) PO BID 10/08/2015 10/07/2015 Inactive prednisone 20 mg tablet RxNorm: 867722 1 Tablet(s) PO BID 08/01/2015 08/05/2015 Inactive prednisone 20 mg tablet RxNorm: 322749 1 Tablet(s) PO BID 08/01/2015 07/31/2015 Inactive Kenalog 40 mg/mL suspension for injection RxNorm: 3991426 Milliliter(s) Inj 07/30/2015 07/30/2015 Inactive Zyrtec-D 5 mg-120 mg tablet,extended release RxNorm: 2769041 1 Tablet(s) PO BID as needed 07/30/2015 01/07/2016 Inactive Augmentin 875 mg-125 mg tablet RxNorm: 336658 1 Tablet(s) PO BID 07/30/2015 08/05/2015 Inactive Kenalog 40 mg/mL suspension for injection RxNorm: 1151614 1 Milliliter(s) Inj 03/22/2015 03/22/2015 Inactive Flonase 50 mcg/actuation Nasal [place] RxNorm: 2069597 1 [place] NASAL 07/12/2012 07/11/2012 Inactive 1 spray each nare x 5 days Flonase 50 mcg/actuation Nasal [place] RxNorm: 7601289 1 [place] NASAL 07/12/2012 07/16/2012 Inactive 1 spray each nare x 5 days cefdinir 300 mg capsule RxNorm: 640669 1 Capsule(s) PO BID 07/12/2012 07/18/2012 Inactive cefdinir 300 mg capsule RxNorm: 721163 1 Capsule(s) PO BID 07/12/2012 07/11/2012 Inactive Tamiflu 75 mg capsule RxNorm: 104827 1 Capsule(s) PO BID 06/20/2012 06/24/2012 Inactive Tamiflu 75 mg capsule RxNorm: 860767 1 Capsule(s) PO BID 06/20/2012 06/19/2012 Inactive Diflucan 150 mg tablet RxNorm: 985480 1 Tablet(s) PO daily 04/21/2012 05/04/2012 Inactive nystatin 100,000 unit/g Topical Cream RxNorm: 801494 1 Application TOP TID 04/13/2012 05/02/2012 Inactive one application to groin tid Diflucan 150 mg tablet RxNorm: 915605 1 Tablet(s) PO daily 04/04/2012 04/06/2012 Inactive nystatin 100,000 unit/g Topical Cream RxNorm: 565481 1 Application TOP TID 04/04/2012 04/03/2012 Inactive one application to groin tid x 10 day nystatin 100,000 unit/g Topical Cream RxNorm: 671940 1 Application TOP TID 04/04/2012 04/12/2012 Inactive one application to groin tid x 10 day Diflucan 150 mg tablet RxNorm: 852448 1 Tablet(s) PO daily 03/23/2012 03/22/2012 Inactive Diflucan 150 mg tablet RxNorm: 075835 1 Tablet(s) PO daily 03/23/2012 03/29/2012 Inactive Rocephin 1 gram Solution for Injection RxNorm: 513795 Inj 03/18/2012 03/18/2012 Inactive Augmentin 500 mg-125 mg tablet RxNorm: 683709 1 Tablet(s) PO TID 03/11/2012 03/10/2012 Inactive Augmentin 500 mg-125 mg tablet RxNorm: 102991 1 Tablet(s) PO TID 03/11/2012 03/17/2012 Inactive Kenalog 40 mg/mL Susp for Injection RxNorm: 4573598 1 Millil[place](s) Inj 07/02/2011 07/02/2011 Inactive Rocephin 500 mg Solution for Injection RxNorm: 503838 1 Milliliter(s) Inj 07/02/2011 07/02/2011 Inactive Bactrim DS 800 mg-160 mg Tab RxNorm: 058641 1 Tablet(s) PO BID 06/30/2011 07/09/2011 Inactive Aspirin For Children 81 mg Chewable Tab RxNorm: 495961 1 Tablet(s) PO daily No Start Date Active multivitamin Oral RxNorm: Oral No Start Date Active omeprazole 40 mg Cap, Delayed Release RxNorm: 209627 1 Capsule(s) PO PRN No Start Date Active Yuridia-D 12 Hour 60 mg-120 mg tablet,extended release RxNorm: 838867 1 Tablet(s) PO BID No Start Date 12/05/2017 Inactive Zithromax 500 mg tablet RxNorm: 116707 2 Tablet(s) PO daily No Start Date 01/30/2016 Inactive Zyrtec-D 5 mg-120 mg 12 hr Tab RxNorm: 2648384 1 Tablet(s) PO daily No Start Date 07/29/2015 Inactive Medication Administered Medication Codes Instructions Start Date Status Kenalog 40 mg/mL suspension for injection RxNorm: 3161219 1[place] 04/05/2017 No longer Active Kenalog 40 mg/mL suspension for injection RxNorm: 9742767 1[place] 02/24/2017 No longer Active Kenalog 40 mg/mL suspension for injection RxNorm: 4055798 1[place]il[place] 09/16/2016 No longer Active Kenalog 40 mg/mL suspension for injection RxNorm: 0213780 [place] 07/30/2015 No longer Active Kenalog 40 mg/mL suspension for injection RxNorm: 3602507 1[place] 03/22/2015 No longer Active Rocephin 1 gram Solution for Injection RxNorm: 422013 03/18/2012 No longer Active Kenalog 40 mg/mL Susp for Injection RxNorm: 4269279 1[place] 07/02/2011 No longer Active Rocephin 500 mg Solution for Injection RxNorm: 277786 1[place]il[place] 07/02/2011 No longer Active Immunizations Vaccine [...] Item Item Code Result Date Comp Metabolic Gnr746 NA 139 mEq/L 03/15/2018 Comp Metabolic Mfv451 K 4.2 mEq/L 03/15/2018 Comp Metabolic Slh685 CL 101 mEq/L 03/15/2018 Comp Metabolic Wyv133 CO2 32.0 mEq/L 03/15/2018 Comp Metabolic Kws015 ANION GAP 10 03/15/2018 Comp Metabolic Cax453 GLUCOSE 94 mg/dL 03/15/2018 Comp Metabolic Xnn094 Creat 0.9 mg/dL 03/15/2018 Comp Metabolic Nxq270 eGFR 104 ml/min/1.73m2 03/15/2018 Comp Metabolic Man193 BUN 14 mg/dL 03/15/2018 Comp Metabolic Jfh966 B/C Ratio 16.3 Ratio 03/15/2018 Comp Metabolic Pca103 CALCIUM 9.8 mg/dL 03/15/2018 Comp Metabolic Dvr804 ALK PHOS 75 U/L 03/15/2018 Comp Metabolic Qxx601 AST(SGOT) 20 U/L 03/15/2018 Comp Metabolic Ewd532 ALT(SGPT) 30 U/L 03/15/2018 Comp Metabolic Ftz998 BILI T 1.2 mg/dL 03/15/2018 Comp Metabolic Ibn028 ALBUMIN 4.7 g/dL 03/15/2018 Comp Metabolic Fpy345 TPRO 7.2 g/dL 03/15/2018 Comp Metabolic Cup835 GLOB 2.5 g/dL 03/15/2018 Comp Metabolic Hfm439 A/G Ratio 1.9 Ratio 03/15/2018 Comp Metabolic Gqf151 Osmo 278 mOsmo 03/15/2018 Urine Culture Ucult [...] Ord28 U-Yeast NEGATIVE 01/04/2018 Hepatitis Panel (Abc) 97993 HEPATITIS B SURFACE AG . 12/09/2017 Hepatitis Panel (Abc) 22950 HEPATITIS B SURFACE AG NEGATIVE 12/09/2017 Hepatitis Panel (Abc) 22115 HEPATITIS B CORE AB, IGM . 12/09/2017 Hepatitis Panel (Abc) 18535 HEPATITIS B CORE AB, IGM NEGATIVE 12/09/2017 Hepatitis Panel (Abc) 45838 HEPATITIS A AB, IGM . 12/09/2017 Hepatitis Panel (Abc) 80253 HEPATITIS A AB, IGM NEGATIVE 12/09/2017 Hepatitis Panel (Abc) 80581 HEPATITIS C ANTIBODY . 12/09/2017 Hepatitis Panel (Abc) 76757 HEPATITIS C ANTIBODY NEGATIVE 12/09/2017 Tsh Ord6 TSH (3rd IS) 2.24 uIU/mL 11/29/2017 Comp Metabolic Rug632 NA 138 mEq/L 11/29/2017 Comp Metabolic Jbv468 K 4.1 mEq/L 11/29/2017 Comp Metabolic Xpx872 CL 101 mEq/L 11/29/2017 Comp Metabolic Nqi468 CO2 30.0 mEq/L 11/29/2017 Comp Metabolic Ytr786 ANION GAP 11 11/29/2017 Comp Metabolic Kxo242 GLUCOSE 89 mg/dL 11/29/2017 Comp Metabolic Bpd061 Creat 0.8 mg/dL 11/29/2017 Comp Metabolic Zof875 eGFR 107 ml/min/1.73m2 11/29/2017 Comp Metabolic Xdx887 BUN 15 mg/dL 11/29/2017 Comp Metabolic Mqe923 B/C Ratio 17.9 Ratio 11/29/2017 Comp Metabolic Ugu792 CALCIUM 9.4 mg/dL 11/29/2017 Comp Metabolic Ded891 ALK PHOS 71 U/L 11/29/2017 Comp Metabolic Lkf207 AST(SGOT) 19 U/L 11/29/2017 Comp Metabolic Euo879 ALT(SGPT) 27 U/L 11/29/2017 Comp Metabolic Ndb069 BILI T 1.8 mg/dL 11/29/2017 Comp Metabolic Gyn444 ALBUMIN 4.4 g/dL 11/29/2017 Comp Metabolic Ykz023 TPRO 6.8 g/dL 11/29/2017 Comp Metabolic Urw010 GLOB 2.5 g/dL 11/29/2017 Comp Metabolic Jml259 A/G Ratio 1.8 Ratio 11/29/2017 Comp Metabolic Opw066 Osmo 276 mOsmo 11/29/2017 Urine Culture Ucult [...] 82.7 fl 11/29/2017 Cbc With Differential Ord2 [place]% 8.3 % 11/29/2017 Cbc With Differential Ord2 [...] 3.16 K/ul 11/29/2017 Cbc With Differential Ord2 [place] ABS# 0.7 K/ul 11/29/2017 Cbc With Differential Ord2 Eos ABS# 0.2 K/ul 11/29/2017 Cbc With Differential Ord2 Baso ABS# 0.0 K/ul 11/29/2017 C RAP A SC 4690514 Strep A Negative 08/20/2016 GC/CHL PRB 9000363 SOURCE CASSANDRA UNKNOWN 03/19/2012 GC/CHL PRB 6588067 CHLM PROBE NEG 03/19/2012 GC/CHL PRB 8530107 GC PROBE NEG 03/19/2012 URINALYSIS NONAUTO W/O SCOPE 16530 Specific [place] 1.010 DateTime(Free Text in Aprima) URINALYSIS NONAUTO W/O SCOPE 40986 PH 6.5 DateTime(Free Text in Aprima) URINALYSIS NONAUTO W/O SCOPE 50017 GLUCOSE neg DateTime(Free Text in Aprima) URINALYSIS NONAUTO W/O SCOPE 51577 Protein neg DateTime(Free Text in Aprima) URINALYSIS NONAUTO W/O SCOPE 87735 Blood neg DateTime(Free Text in Aprima) URINALYSIS NONAUTO W/O SCOPE 19006 Bilirubin neg DateTime(Free Text in Aprima) URINALYSIS NONAUTO W/O SCOPE 44420 Ketones neg DateTime(Free Text in Aprima) URINALYSIS NONAUTO W/O SCOPE 52874 Urobilinogen neg DateTime(Free Text in Aprima) URINALYSIS NONAUTO W/O SCOPE 86019 Nitrite neg DateTime(Free Text in Aprima) URINALYSIS NONAUTO W/O SCOPE 20684 Leukocytes neg DateTime(Free Text in Apr) Review [...] Codes Date URINALYSIS NONAUTO W/O SCOPE CPT-4: 44536 06/28/2018 TRIAMCINOLONE ACET INJ NOS CPT-4: J3301 04/05/2017 TRIAMCINOLONE ACET INJ NOS CPT-4: J3301 02/24/2017 THER/PROPH/DIAG INJ SC/IM CPT-4: 77008 09/16/2016 TRIAMCINOLONE ACET INJ NOS CPT-4: J3301 09/16/2016 TRIAMCINOLONE ACET INJ NOS CPT-4: J3301 07/30/2015 TRIAMCINOLONE ACET INJ NOS CPT-4: J3301 03/22/2015 ROCEPHIN, PER 250 MG CPT- 4: J0696 03/18/2012 URINALYSIS NONAUTO W/O SCOPE CPT-4: 73105 03/17/2012 ROCEPHIN, PER 250 MG CPT- 4: J0696 06/30/2011 TRIAMCINOLONE ACET INJ NOS CPT-4: J3301 06/30/2011 Vital Signs Date Vital 06/28/2018 Blood Pressure 1: 122/82 Code: 8480-6 BMI: 24.0 Code: 67281-8 Heart Rate 1: 91 bpm Height: 6'2" SpO2: 98% Weight: 187 lbs 02/22/2018 Blood Pressure 1: 110/80 Code: 8480-6 Heart Rate 1: 74 bpm Height: 6'2" SpO2: 98% Weight: 02/16/2018 Blood Pressure 1: 130/72 Code: 8480-6 BMI: 24.0 Code: 93132-6 Heart Rate 1: 82 bpm Height: 6'2" SpO2: 97% Weight: 187 lbs 12/20/2017 Blood Pressure 1: 128/88 Code: 8480-6 BMI: 23.1 Code: 25124-6 Heart Rate 1: 86 bpm Height: 6'2" SpO2: 98% Weight: 180 lbs 11/26/2017 Blood Pressure 1: 122/80 Code: 8480-6 BMI: 23.1 Code: 03730-2 Heart Rate 1: 56 bpm Height: 6'2" SpO2: 98% Weight: 180 lbs 07/21/2017 Blood Pressure 1: 120/78 Code: 8480-6 BMI: 21.8 Code: 24063-8 Heart Rate 1: 88 bpm Height: 6'2" SpO2: 97% Weight: 170 lbs 04/05/2017 Blood Pressure 1: 126/68 Code: 8480-6 BMI: 22.6 Code: 43365-8 Heart Rate 1: 80 bpm Height: 6'2" SpO2: 98% Weight: 176 lbs 03/22/2017 Blood Pressure 1: 120/72 Code: 8480-6 BMI: 22.5 Code: 39454-6 Heart Rate 1: 82 bpm Height: 6'2" SpO2: 98% Temperature: 36.8 (C) / 98.3 (F) Weight: 175 lbs 02/24/2017 Blood Pressure 1: 120/62 Code: 8480-6 BMI: 22.5 Code: 23561-3 Heart Rate 1: 84 bpm Height: 6'2" SpO2: 98% Weight: 175 lbs 08/20/2016 Blood Pressure 1: 126/78 Code: 8480-6 BMI: 24.1 Code: 09339-1 Heart Rate 1: 84 bpm Height: 6'2" SpO2: 98% Temperature: 37.1 (C) / 98.8 (F) Weight: 188 lbs 06/10/2016 Blood Pressure 1: 124/62 Code: 8480-6 BMI: 24.4 Code: 68577-9 Heart Rate 1: 85 bpm Height: 6'2" SpO2: 98% Weight: 190 lbs 02/07/2016 Blood Pressure 1: 128/72 Code: 8480-6 BMI: 23.6 Code: 04022-6 Heart Rate 1: 78 bpm Height: 6'2" SpO2: 96% Weight: 184 lbs 01/08/2016 Blood Pressure 1: 108/70 Code: 8480-6 BMI: 23.4 Code: 03313-6 Heart Rate 1: 84 bpm Height: 6'2" SpO2: 96% Weight: 182 lbs 07/30/2015 Blood Pressure 1: 110/64 Code: 8480-6 BMI: 22.6 Code: 99330-6 Heart Rate 1: 78 bpm Height: 6'2" SpO2: 98% Weight: 176 lbs 03/22/2015 Blood Pressure 1: 126/80 Code: 8480-6 BMI: 24.0 Code: 94910-8 Heart Rate 1: 76 bpm Height: 6'2" SpO2: 98% Weight: 187 lbs 06/20/2012 Blood Pressure 1: 110/76 Code: 8480-6 Heart Rate 1: 100 bpm Temperature: 38.7 (C) / 101.7 (F) Weight: 169 lbs 03/18/2012 Blood Pressure 1: 132/70 Code: 8480-6 Heart Rate 1: 80 bpm Weight: 160 lbs 06/30/2011 Blood Pressure 1: 110/72 Code: 8480-6 BMI: 23.9 Code: 75245-5 Heart Rate 1: 72 bpm Height: 6'2" Respiratory Rate: 20 bpm Weight: 186 lbs 03/09/2011 Blood Pressure 1: 96/58 Code: 8480-6 BMI: 23.2 Code: 92921- 5 Heart Rate 1: 80 bpm Height: 6'2" Respiratory Rate: 16 bpm Weight: 183 lbs 01/12/2011 Blood Pressure 1: 126/80 Code: 8480-6 BMI: 23.5 Code: 82624-8 Heart Rate 1: 82 bpm Height: 6'2" [...] 04/05/2017 None rash Location-Head/Neck on the left confucianist 04/05/2017 None rash Location-Head/Neck on the forehead [...] data Encounters Encounter Performer Location Codes Date ([id number]) [id number] EST. 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 PATIENT, LEVEL III Diagnosis: Dysuria[ICD10: R30.0] Cherry Riggs MD, [facility] CPT-4: 80110 02/16/2018 ([id number]) 54437 EST. PATIENT, LEVEL III Diagnosis: Pain in left knee[ICD10: M25.562] Gin Riggs MD [facility] CPT- 4: 00430 12/20/2017 ([id number]) PREV VISIT EST AGE 40-64 Diagnosis: Encounter for general adult medical examination without abnormal findings[ICD10: Z00.00] Diagnosis: Dysuria[ICD10: R30.0] Diagnosis: Other allergic rhinitis[ICD10: J30.89] Gin Riggs MD [facility] CPT-4: 00899 11/26/2017 39303 EST. PATIENT, LEVEL IV Diagnosis: Other acute sinusitis[ICD10: J01.80] Diagnosis: Other allergic rhinitis[ICD10: J30.89] Cherry Riggs MD [facility] CPT- 4: 33512 07/21/2017 [id number] EST. PATIENT, LEVEL IV Diagnosis: Allergic contact dermatitis due to plants, except food[ICD10: L23.7] Cherry Riggs MD [facility] CPT-4: 51195 04/05/2017 ([id number]) 50084 EST. PATIENT, LEVEL III Diagnosis: Acute recurrent maxillary sinusitis[ICD10: J01.01] Gin Riggs MD [facility] CPT-4: 14385 03/22/2017 64283 EST. PATIENT, LEVEL IV Diagnosis: Other acute sinusitis[ICD10: J01.80] Diagnosis: Other allergic rhinitis[ICD10: J30.89] Cherry Riggs MD, [facility] CPT- 4: 07463 02/24/2017 ([id number]) 28397 EST. PATIENT, LEVEL III Diagnosis: Acute laryngopharyngitis[ICD10: J06.0] Gin Riggs MD, [facility] CPT-4: 68145 08/20/2016 22750 EST. PATIENT, LEVEL III Diagnosis: Pain in right shoulder[ICD10: M25.511] Cherry Riggs MD, [facility] CPT- 4: 25800 06/10/2016 ([id number]) 24204 EST. PATIENT, LEVEL II Diagnosis: Melanocytic nevi, unspecified[ICD10: D22.9] Gin Riggs MD, [facility] CPT-4: 70192 02/07/2016 41912 EST. PATIENT, LEVEL III Diagnosis: Other acute sinusitis[ICD10: J01.80] Diagnosis: Other allergic rhinitis[ICD10: J30.89] Cherry Riggs MD, [facility] CPT- 4: 47926 01/08/2016 ([id number]) 04821 EST. PATIENT, LEVEL III Diagnosis: Acute recurrent maxillary sinusitis[ICD10: J01.01] Gin Riggs MD, [facility] CPT-4: 98667 07/30/2015 ([id number]) PREV VISIT EST AGE 18-39 Diagnosis: Encounter for general adult medical examination without abnormal findings[ICD10: Z00.00] Diagnosis: Allergic rhinitis, unspecified[ICD10: J30.9] Gin Riggs MD, [facility] CPT-4: 02927 03/22/2015 ([id number]) 06257 EST. PATIENT, LEVEL III Diagnosis: Influenza[ICD9: 487.1] Gin Riggs MD, [facility] CPT-4: 02021 06/20/2012 25559 EST. PATIENT, LEVEL II Diagnosis: DYSURIA[ICD9: 788.1] Diagnosis: Screen for sexually transmitted diseases[ICD9: V74.5] Gin Riggs MD, [facility] CPT-4: 14725 03/18/2012 ([id number]) 72204 EST. PATIENT, LEVEL III Diagnosis: ACUTE SINUSITIS[ICD9: 461.9] Gin Riggs MD, [facility] CPT-4: 80835 06/30/2011 23594 EST. PATIENT, LEVEL IV Diagnosis: ESOPHAGEAL REFLUX[ICD9: 530.81] Diagnosis: Constipation[ICD9: 564.00] [facility] CPT-4: 36220 03/09/2011 OFFICE VISIT, NEW - LEVEL 3 Diagnosis: Encounter for annual health examination[ICD9: V70.0] Diagnosis: Esophageal reflux[ICD9: 530.81] [facility] CPT-4: 59874 01/12/2011 Plan of Care Planned Activity Notes Codes Status Date Visit Plan: Dysuria -irritation -UA negative-recommend patient switch to unscented soap/lotion -monitor symptoms and call if they do no resolve Varicocele -check semen analysis 06/28/2018 Patient Education: Patient Medication Summary Completed 06/28/2018 Patient Education: Patient Medication Summary Completed 03/15/2018 Visit Plan: Varicocele-grade 3 -discussed with Dr Riggs - start an aspirin daily - discussed anti inflammatories, supportive underwear and to call if symptoms do not resolve or if any worse. Patient verbalized understanding of plan. 02/22/2018 Appointment: Gin Dooley WPtel: [address] [place], [place] [phone] (15 min) Moderate 02/22/2018 Patient Education: Patient [...] to urology 02/16/2018 Appointment: Cherry Wagoner WPtel: [address] [place], [place] [phone] (15 min) Moderate 02/16/2018 Patient Education: Patient Medication Summary Completed 02/16/2018 Patient Education: Patient Medication Summary Completed 01/03/2018 Visit Plan: Left knee pain -suspect meniscal injury -will xray knee today and then schedule MRI for further evaluation -discussed rest, ice and anti inflammatories as directed 12/20/2017 Appointment: Gin Dooley WPtel: [address] [place], [place] [phone] (15 min) Moderate 12/20/2017 Patient Education: Patient Medication Summary Completed 12/20/2017 Care Plan: X-RAY EXAM OF KNEE 3 LOINC : 14779-7 Pending 12/20/2017 Visit Plan: Well Adult - [...] not improve. 11/26/2017 Appointment: Gin Dooley WPtel: [phone] (15 min) Moderate 11/26/2017 Patient Education: [...] allergy spray. 07/21/2017 Appointment: Cherry Wagoner WPtel: [facility] (15 min) Moderate 07/21/2017 Patient Education: Patient Medication Summary Completed 07/21/2017 Visit Plan: Poison [place] - pt is to use topical treatments as directed. Pt is cleanse clothing in hot water with soap, and call if symptoms do not improve or if they worsen. 04/05/2017 Appointment: Cherry Wagoner WPtel: [facility] (10 min) Simple 04/05/2017 Patient Education: [...] allergy spray. 03/22/2017 Appointment: Gin Dooley WPtel: [id number] ([facility] Moderate 03/22/2017 Patient Education: Patient [...] spray. 02/24/2017 Appointment: Cherry Wagoner [facility]el[id number] [facility] [id number] [place] (15 min) Moderate 02/24/2017 Patient Education: [...] fever/discomfort. 08/20/2016 Appointment: Gin Dooley WPtel: [facility]5 [phone] [place] (10 min) Simple 08/20/2016 Patient [...] for evaluation 02/07/2016 Appointment: Gin Dooley WPtel: [phone] [place] (30 min) Complex 02/07/2016 Patient Education: Patient Medication Summary Completed 02/07/2016 Care Plan: Referral Order SNOMED-CT : [id number] Pending 02/07/2016 Visit Plan: Sinusitis - Pt [...] the office 03/22/2015 Appointment: Gin Do[facility] [phone] [facility] [phone] Physical 03/22/2015 Patient Education: Patient Medication Summary [...] any worse. 06/20/2012 Appointment: Gin Dooley WPtel: [address] [place], [place] [phone] Sick 06/20/2012 Patient Education: Patient Medication Summary [...] of testing. 03/18/2012 Appointment: Gin Dooley WPtel: [phone] Other 03/18/2012 Patient Education: Patient Medication Summary Completed 03/18/2012 Appointment: Claire Riggs WPtel: [address] [place], [place] [phone] Lab Draw 03/17/2012 Patient Education: Patient Medication [...] not resolve. 06/30/2011 Appointment: Gin Dooley WPtel: [address] [place], [place] [phone] Other 06/30/2011 Patient Education: Patient Medication Summary [...] at 3:30pm. 03/09/2011 Appointment: Claire Riggs WPtel: [address] [place], [place] [phone] Other 03/09/2011 Patient Education: Patient Medication Summary Completed 03/09/2011 Patient Education: .Amazing jasmine Gomez Completed 03/09/2011 Visit Plan: Well Adult - [...] program. 01/12/2011 Appointment: Claire Riggs WPtel[facility] [id number] New Patient 01/12/2011 Patient Education: Patient Medication [...] 3:30pm. COME WEDNESDAY FOR LABS CHECK [facility] . Well Adult - pt [...] no resolve Varicocele -check semen analysis . Poison Ruthy - pt is to [...] for an antibiotic nasal spray compound that [facility] pharmacy makes . Sinusitis - Pt [...]
--- OUTSIDE RECORDS SUMMARY | 2018-11-22 07:21 | XMS REPORT | CCD ---
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 Name Role Phone Cliare Riggs PP Unavailable CCM Unavailable Summary Purpose Interface Exchange Insurance Providers Payer name Policy type / Coverage type Covered libertarian ID Effective Begin Date Effective End Date [place] [facility] [employer]/[facility] [id number] Unknown Family history Mother Diagnosis Age At Onset Cancer Unknown Brother Diagnosis Age At Onset No Family Disease Entered N/A Grandmother Diagnosis Age At Onset Cancer Unknown Father Diagnosis Age At Onset No Family Disease Entered N/A Social History Social History Element Codes Description Effective Dates Marital status Unknown 01/12/2011 Employment Unknown 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 Active 02/22/2018 Unknown Dysuria ICD-9: 788.1 ICD-10: R30.0 Active 11/26/2017 Unknown Pain in left knee ICD-9: 719.46 [...] Problems Condition Codes Effective Dates Condition Status Unspecified jaundice ICD- 9: 277.4 ICD-10: R17 03/15/2018 Active Inflammatory disorders of scrotum ICD-9: 608.4 ICD-10: N49.2 02/22/2018 Active 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 02/22/2018 Active Dysuria ICD-9: 788.1 ICD-10: R30.0 11/26/2017 Active Pain in left knee ICD-9: 719.46 [...] Instructions Flonase 50 mcg/actuation nasal spray,suspension RxNorm: 7203106 1 [place] NASAL BID 06/22/2018 No Stop Date Active Zyrtec-D 5 mg-120 mg tablet,extended release RxNorm: 5507202 1 Tablet(s) PO BID as needed 06/22/2018 No Stop Date Active Augmentin 875 mg-125 mg tablet RxNorm: 927214 1 Tablet(s) PO BID 06/02/2018 06/08/2018 Inactive Zithromax Z-Surya 250 mg tablet RxNorm: 365039 1 Tablet(s) PO UD 03/24/2018 06/01/2018 Inactive Flonase 50 mcg/actuation nasal spray,suspension RxNorm: 5553778 1 [place] NASAL BID 03/01/2018 06/21/2018 Inactive Cipro 500 mg tablet RxNorm: 339499 1 Tablet(s) PO BID 02/16/2018 02/25/2018 Inactive Diflucan 150 mg tablet RxNorm: 008100 1 Tablet(s) PO daily start after cipro is finished 02/16/2018 02/22/2018 Inactive Augmentin 875 mg-125 mg tablet RxNorm: 633136 1 Tablet(s) PO BID 12/24/2017 12/23/2017 Inactive Augmentin 875 mg-125 mg tablet RxNorm: 414432 1 Tablet(s) PO BID 12/24/2017 12/30/2017 Inactive Keflex 500 mg capsule RxNorm: 989206 1 Capsule(s) PO TID 12/08/2017 12/14/2017 Inactive Yuridia-D 12 Hour 60 mg-120 mg tablet,extended release RxNorm: 549861 1 Tablet(s) PO BID 12/06/2017 No Stop Date Active Keflex 500 mg capsule RxNorm: 825474 1 Capsule(s) PO TID 11/26/2017 12/02/2017 Inactive Flonase 50 mcg/actuation nasal spray,suspension RxNorm: 8865373 1 [place] NASAL BID 11/15/2017 02/28/2018 Inactive Yuridia Allergy 180 mg tablet RxNorm: 038567 1 Tablet(s) PO daily 10/27/2017 10/27/2017 Inactive Zyrtec-D 5 mg-120 mg tablet,extended release RxNorm: 5699015 1 Tablet(s) PO BID as needed 10/20/2017 06/21/2018 Inactive Yuridia Allergy 180 mg tablet RxNorm: 159742 1 Tablet(s) PO daily 09/21/2017 10/20/2017 Inactive Augmentin 500 mg-125 mg tablet RxNorm: 099158 1 Tablet(s) PO TID 07/21/2017 07/30/2017 Inactive Yuridia Allergy 180 mg tablet RxNorm: 947890 1 Tablet(s) PO daily 07/21/2017 08/19/2017 Inactive Zyrtec-D 5 mg-120 mg tablet,extended release RxNorm: 2974878 1 Tablet(s) PO BID as needed 06/15/2017 10/19/2017 Inactive Zyrtec-D 5 mg-120 mg tablet,extended release RxNorm: 9445265 1 Tablet(s) PO BID as needed 05/11/2017 02/21/2018 Inactive prednisone 10 mg tablet RxNorm: 759267 Tablet(s) PO 04/05/2017 12/07/2017 Inactive 6,5,4,3,2,1 Kenalog 40 mg/mL suspension for injection RxNorm: 9999407 1 Milliliter(s) Inj 04/05/2017 04/05/2017 Inactive Flonase 50 mcg/actuation nasal spray,suspension RxNorm: 4055510 1 [place] NASAL BID 04/01/2017 11/14/2017 Inactive Augmentin 875 mg-125 mg tablet RxNorm: 076955 1 Tablet(s) PO BID 03/22/2017 03/28/2017 Inactive prednisone 20 mg tablet RxNorm: 326403 2 Tablet(s) PO daily 03/02/2017 03/06/2017 Inactive prednisone 20 mg tablet RxNorm: 121440 2 Tablet(s) PO daily 03/02/2017 03/01/2017 Inactive Zithromax Z-Surya 250 mg tablet RxNorm: 513266 1 Tablet(s) PO UD 02/24/2017 03/21/2017 Inactive Kenalog 40 mg/mL suspension for injection RxNorm: 7064896 1 Milliliter(s) Inj 02/24/2017 02/24/2017 Inactive Zyrtec-D 5 mg-120 mg tablet,extended release RxNorm: 3036211 1 Tablet(s) PO BID as needed 02/05/2017 05/10/2017 Inactive Zyrtec-D 5 mg-120 mg tablet,extended release RxNorm: 0821815 1 Tablet(s) PO BID as needed 12/01/2016 02/04/2017 Inactive Zyrtec-D 5 mg-120 mg tablet,extended release RxNorm: 4119890 1 Tablet(s) PO BID as needed 11/03/2016 11/30/2016 Inactive Zyrtec-D 5 mg-120 mg tablet,extended release RxNorm: 2989090 1 Tablet(s) PO BID as needed 10/09/2016 11/02/2016 Inactive Kenalog 40 mg/mL suspension for injection RxNorm: 5564410 1 Milliliter(s) Inj 09/16/2016 09/16/2016 Inactive Levaquin 500 mg tablet RxNorm: 392039 1 Tablet(s) PO daily 09/15/2016 09/24/2016 Inactive Levaquin 500 mg tablet RxNorm: 996842 1 Tablet(s) PO daily 09/15/2016 09/14/2016 Inactive prednisone 20 mg tablet RxNorm: 616912 1 Tablet(s) PO BID 09/15/2016 09/19/2016 Inactive amoxicillin 500 mg tablet RxNorm: 533800 1 Tablet(s) PO BID 08/20/2016 08/29/2016 Inactive Augmentin 875 mg-125 mg tablet RxNorm: 423521 1 Tablet(s) PO BID 04/23/2016 04/28/2016 Inactive Zyrtec-D 5 mg-120 mg tablet,extended release RxNorm: 7510970 1 Tablet(s) PO BID as needed 01/31/2016 10/08/2016 Inactive Flonase 50 mcg/actuation nasal spray,suspension RxNorm: 7942457 1 [place] NASAL BID 01/08/2016 01/22/2016 Inactive Flonase 50 mcg/actuation nasal spray,suspension RxNorm: 6354038 1 [place] NASAL BID 01/08/2016 01/07/2016 Inactive 1 spray each nare x 5 days Zithromax Z-Suray 250 mg tablet RxNorm: 605379 Tablet(s) PO 01/08/2016 01/30/2016 Inactive Zyrtec-D 5 mg-120 mg tablet,extended release RxNorm: 6136025 1 Tablet(s) PO BID as needed 01/08/2016 01/30/2016 Inactive Augmentin 875 mg-125 mg tablet RxNorm: 563930 1 Tablet(s) PO BID 10/08/2015 10/17/2015 Inactive Augmentin 875 mg-125 mg tablet RxNorm: 460391 1 Tablet(s) PO BID 10/08/2015 10/07/2015 Inactive prednisone 20 mg tablet RxNorm: 289458 1 Tablet(s) PO BID 08/01/2015 08/05/2015 Inactive prednisone 20 mg tablet RxNorm: 314922 1 Tablet(s) PO BID 08/01/2015 07/31/2015 Inactive Kenalog 40 mg/mL suspension for injection RxNorm: 2361060 Milliliter(s) Inj 07/30/2015 07/30/2015 Inactive Zyrtec-D 5 mg-120 mg tablet,extended release RxNorm: 3312630 1 Tablet(s) PO BID as needed 07/30/2015 01/07/2016 Inactive Augmentin 875 mg-125 mg tablet RxNorm: 513833 1 Tablet(s) PO BID 07/30/2015 08/05/2015 Inactive Kenalog 40 mg/mL suspension for injection RxNorm: 0995963 1 Milliliter(s) Inj 03/22/2015 03/22/2015 Inactive Flonase 50 mcg/actuation Nasal [place] RxNorm: 6558900 1 [place] NASAL 07/12/2012 07/11/2012 Inactive 1 spray each nare x 5 days Flonase 50 mcg/actuation Nasal [place] RxNorm: 5583131 1 [place] NASAL 07/12/2012 07/16/2012 Inactive 1 spray each nare x 5 days cefdinir 300 mg capsule RxNorm: 845867 1 Capsule(s) PO BID 07/12/2012 07/18/2012 Inactive cefdinir 300 mg capsule RxNorm: 474816 1 Capsule(s) PO BID 07/12/2012 07/11/2012 Inactive Tamiflu 75 mg capsule RxNorm: 843912 1 Capsule(s) PO BID 06/20/2012 06/24/2012 Inactive Tamiflu 75 mg capsule RxNorm: 255050 1 Capsule(s) PO BID 06/20/2012 06/19/2012 Inactive Diflucan 150 mg tablet RxNorm: 216123 1 Tablet(s) PO daily 04/21/2012 05/04/2012 Inactive nystatin 100,000 unit/g Topical Cream RxNorm: 157725 1 Application TOP TID 04/13/2012 05/02/2012 Inactive one application to groin tid Diflucan 150 mg tablet RxNorm: 051135 1 Tablet(s) PO daily 04/04/2012 04/06/2012 Inactive nystatin 100,000 unit/g Topical Cream RxNorm: 602871 1 Application TOP TID 04/04/2012 04/03/2012 Inactive one application to groin tid x 10 day nystatin 100,000 unit/g Topical Cream RxNorm: 587654 1 Application TOP TID 04/04/2012 04/12/2012 Inactive one application to groin tid x 10 day Diflucan 150 mg tablet RxNorm: 880048 1 Tablet(s) PO daily 03/23/2012 03/22/2012 Inactive Diflucan 150 mg tablet RxNorm: 293315 1 Tablet(s) PO daily 03/23/2012 03/29/2012 Inactive Rocephin 1 gram Solution for Injection RxNorm: 653653 Inj 03/18/2012 03/18/2012 Inactive Augmentin 500 mg-125 mg tablet RxNorm: 488433 1 Tablet(s) PO TID 03/11/2012 03/10/2012 Inactive Augmentin 500 mg-125 mg tablet RxNorm: 694071 1 Tablet(s) PO TID 03/11/2012 03/17/2012 Inactive Kenalog 40 mg/mL Susp for Injection RxNorm: 7817234 1 Milliliter(s) Inj 07/02/2011 07/02/2011 Inactive Rocephin 500 mg Solution for Injection RxNorm: 888787 1 Milliliter(s) Inj 07/02/2011 07/02/2011 Inactive Bactrim DS 800 mg-160 mg Tab RxNorm: 517286 1 Tablet(s) PO BID 06/30/2011 07/09/2011 Inactive Aspirin For Children 81 mg Chewable Tab RxNorm: 718771 1 Tablet(s) PO daily No Start Date Active multivitamin Oral RxNorm: Oral No Start Date Active omeprazole 40 mg Cap, Delayed Release RxNorm: 984985 1 Capsule(s) PO PRN No Start Date Active Yuridia-D 12 Hour 60 mg-120 mg tablet,extended release RxNorm: 987751 1 Tablet(s) PO BID No Start Date 12/05/2017 Inactive Zithromax 500 mg tablet RxNorm: 795436 2 Tablet(s) PO daily No Start Date 01/30/2016 Inactive Zyrtec-D 5 mg-120 mg 12 hr Tab RxNorm: 8153257 1 Tablet(s) PO daily No Start Date 07/29/2015 Inactive Medication Administered Medication Codes Instructions Start Date Status Kenalog 40 mg/mL suspension for injection RxNorm: 9596540 1Milliliter 04/05/2017 No longer Active Kenalog 40 mg/mL suspension for injection RxNorm: 5047783 1Milliliter 02/24/2017 No longer Active Kenalog 40 mg/mL suspension for injection RxNorm: 5059305 1Milliliter 09/16/2016 No longer Active Kenalog 40 mg/mL suspension for injection RxNorm: 8795544 [place] 07/30/2015 No longer Active Kenalog 40 mg/mL suspension for injection RxNorm: 8729086 1Milliliter 03/22/2015 No longer Active Rocephin 1 gram Solution for Injection RxNorm: 733316 03/18/2012 No longer Active Kenalog 40 mg/mL Susp for Injection RxNorm: 0995039 1Millil[place] 07/02/2011 No longer Active Rocephin 500 mg Solution for Injection RxNorm: 374756 1Milliliter 07/02/2011 No longer Active Immunizations Vaccine Codes Date Status Tetanus, Diptheria, Pertussis Unknown 05/23/2010 completed Assessments Condition Codes Effective Dates Unspecified jaundice ICD-10: R17 ICD-9: 277.4 03/15/2018 Inflammatory disorders of scrotum ICD-10: N49.2 ICD-9: 608.4 02/22/2018 Scrotal varices ICD-10: I86.1 ICD-9: 456.4 02/22/2018 Dysuria ICD-10: R30.0 ICD-9: 788.1 02/16/2018 Pain in left knee ICD-10: M25.562 ICD-9: [...] Visit Reason For Visit Effective Dates Notes cyst 02/22/2018 urinary frequency 02/16/2018 knee pain [...] Item Item Code Result Date Comp Metabolic Dbn371 NA 139 mEq/L 03/15/2018 Comp Metabolic Efd067 K 4.2 mEq/L 03/15/2018 Comp Metabolic Zfr996 CL 101 mEq/L 03/15/2018 Comp Metabolic Wud153 CO2 32.0 mEq/L 03/15/2018 Comp Metabolic Aaj034 ANION GAP 10 03/15/2018 Comp Metabolic Jgt802 GLUCOSE 94 mg/dL 03/15/2018 Comp Metabolic Xxa360 Creat 0.9 mg/dL 03/15/2018 Comp Metabolic Dvp293 eGFR 104 ml/min/1.73m2 03/15/2018 Comp Metabolic Lsf293 BUN 14 mg/dL 03/15/2018 Comp Metabolic Ann970 B/C Ratio 16.3 Ratio 03/15/2018 Comp Metabolic Lyz388 CALCIUM 9.8 mg/dL 03/15/2018 Comp Metabolic Jdb766 ALK PHOS 75 U/L 03/15/2018 Comp Metabolic Rig543 AST(SGOT) 20 U/L 03/15/2018 Comp Metabolic Sit375 ALT(SGPT) 30 U/L 03/15/2018 Comp Metabolic Ofo886 BILI T 1.2 mg/dL 03/15/2018 Comp Metabolic Kdd922 ALBUMIN 4.7 g/dL 03/15/2018 Comp Metabolic Xmt387 TPRO 7.2 g/dL 03/15/2018 Comp Metabolic Xqh892 GLOB 2.5 g/dL 03/15/2018 Comp Metabolic Iha108 A/G Ratio 1.9 Ratio 03/15/2018 Comp Metabolic Wsh329 Osmo 278 mOsmo 03/15/2018 Urine Culture Ucult [...] if culture needed 01/04/2018 Hepatitis Panel (Abc) 73868 HEPATITIS B SURFACE AG . 12/09/2017 Hepatitis Panel (Abc) 96741 HEPATITIS B SURFACE AG NEGATIVE 12/09/2017 Hepatitis Panel (Abc) 11809 HEPATITIS B CORE AB, IGM . 12/09/2017 Hepatitis Panel (Abc) 98079 HEPATITIS B CORE AB, IGM NEGATIVE 12/09/2017 Hepatitis Panel (Abc) 61236 HEPATITIS A AB, IGM . 12/09/2017 Hepatitis Panel (Abc) 93960 HEPATITIS A AB, IGM NEGATIVE 12/09/2017 Hepatitis Panel (Abc) 80072 HEPATITIS C ANTIBODY . 12/09/2017 Hepatitis Panel (Abc) 70052 HEPATITIS C ANTIBODY NEGATIVE 12/09/2017 Tsh Ord6 TSH (3rd IS) 2.24 uIU/mL 11/29/2017 Comp Metabolic Igg216 NA 138 mEq/L 11/29/2017 Comp Metabolic Owg367 K 4.1 mEq/L 11/29/2017 Comp Metabolic Sfb868 CL 101 mEq/L 11/29/2017 Comp Metabolic Jan186 CO2 30.0 mEq/L 11/29/2017 Comp Metabolic Yac304 ANION GAP 11 11/29/2017 Comp Metabolic Xag628 GLUCOSE 89 mg/dL 11/29/2017 Comp Metabolic Gow454 Creat 0.8 mg/dL 11/29/2017 Comp Metabolic Jno818 eGFR 107 ml/min/1.73m2 11/29/2017 Comp Metabolic Msz556 BUN 15 mg/dL 11/29/2017 Comp Metabolic Zmb670 B/C Ratio 17.9 Ratio 11/29/2017 Comp Metabolic Nui673 CALCIUM 9.4 mg/dL 11/29/2017 Comp Metabolic Ozt872 ALK PHOS 71 U/L 11/29/2017 Comp Metabolic Wmd489 AST(SGOT) 19 U/L 11/29/2017 Comp Metabolic Hke716 ALT(SGPT) 27 U/L 11/29/2017 Comp Metabolic Tpd408 BILI T 1.8 mg/dL 11/29/2017 Comp Metabolic Shb307 ALBUMIN 4.4 g/dL 11/29/2017 Comp Metabolic Xph811 TPRO 6.8 g/dL 11/29/2017 Comp Metabolic Qto194 GLOB 2.5 g/dL 11/29/2017 Comp Metabolic Kaz948 A/G Ratio 1.8 Ratio 11/29/2017 Comp Metabolic Hpy523 Osmo 276 mOsmo 11/29/2017 Urine Culture Ucult [...] 82.7 fl 11/29/2017 Cbc With Differential Ord2 Story% 8.3 % 11/29/2017 Cbc With Differential Ord2 [...] 3.16 K/ul 11/29/2017 Cbc With Differential Ord2 Story ABS# 0.7 K/ul 11/29/2017 Cbc With Differential Ord2 Eos ABS# 0.2 K/ul 11/29/2017 Cbc With Differential Ord2 Baso ABS# 0.0 K/ul 11/29/2017 C RAP A SC [id number] Strep A Negative 08/20/2016 GC/CHL PRB 3936415 SOURCE [place]ASS[place] UNKNOWN 03/19/2012 GC/CHL PRB 2579640 CHLM PROBE NEG 03/19/2012 GC/CHL PRB 6545808 GC PROBE NEG 03/19/2012 URINALYSIS NONAUTO W/O SCOPE 42986 Specific [place] 1.010 DateTime(Free Text in Aprima) URINALYSIS NONAUTO W/O SCOPE 44915 PH 6.5 DateTime(Free Text in Aprima) URINALYSIS NONAUTO W/O SCOPE 88698 GLUCOSE neg DateTime(Free Text in Aprima) URINALYSIS NONAUTO W/O SCOPE 53964 Protein neg DateTime(Free Text in Aprima) URINALYSIS NONAUTO W/O SCOPE 95490 Blood neg DateTime(Free Text in Aprima) URINALYSIS NONAUTO W/O SCOPE 08764 Bilirubin neg DateTime(Free Text in Aprima) URINALYSIS NONAUTO W/O SCOPE 19865 Ketones neg DateTime(Free Text in Aprima) URINALYSIS NONAUTO W/O SCOPE 12068 Urobilinogen neg DateTime(Free Text in Aprima) URINALYSIS NONAUTO W/O SCOPE 18849 Nitrite neg DateTime(Free Text in Aprima) URINALYSIS NONAUTO W/O SCOPE 48488 Leukocytes neg DateTime(Free Text in Aprima) Review of Systems System Result Effective Dates Constitutional No recent illness 02/22/2018 Constitutional No [...] Result Effective Dates Notes Full Exam - Genitourinary/Male Constitutional general appearance [...] distress 02/16/2018 None Full Exam - General 1995 Constitutional general appearance Overall: well nourished 02/16/2018 None Full Exam - General 1995 Eyes conjunctiva/eyelids Overall: conjunctiva clear 02/16/2018 None Full Exam - General 1995 Eyes conjunctiva/eyelids Overall: cornea clear 02/16/2018 None Full Exam - General 1995 Eyes conjunctiva/eyelids Overall: eyelids normal 02/16/2018 None [...] affect 01/12/2011 None Procedures Procedure Codes Date TRIAMCINOLONE ACET INJ NOS CPT-4: J3301 04/05/2017 TRIAMCINOLONE ACET INJ NOS CPT-4: J3301 02/24/2017 THER/PROPH/DIAG INJ SC/IM CPT-4: 51379 09/16/2016 TRIAMCINOLONE ACET INJ NOS CPT-4: J3301 09/16/2016 TRIAMCINOLONE ACET INJ NOS CPT-4: J3301 07/30/2015 TRIAMCINOLONE ACET INJ NOS CPT-4: J3301 03/22/2015 ROCEPHIN, PER 250 MG CPT- 4: J0696 03/18/2012 URINALYSIS NONAUTO W/O SCOPE CPT-4: 88713 03/17/2012 ROCEPHIN, PER 250 MG CPT- 4: J0696 06/30/2011 TRIAMCINOLONE ACET INJ NOS CPT-4: J3301 06/30/2011 Vital Signs Date Vital 02/22/2018 Blood Pressure 1: 110/80 Code: 8480-6 Heart Rate 1: 74 bpm Height: 6'2" SpO2: 98% Weight: 02/16/2018 Blood Pressure 1: 130/72 Code: 8480-6 BMI: 24.0 Code: 29920-2 Heart Rate 1: 82 bpm Height: 6'2" SpO2: 97% Weight: 187 lbs 12/20/2017 Blood Pressure 1: 128/88 Code: 8480-6 BMI: 23.1 Code: 35102-3 Heart Rate 1: 86 bpm Height: 6'2" SpO2: 98% Weight: 180 lbs 11/26/2017 Blood Pressure 1: 122/80 Code: 8480-6 BMI: 23.1 Code: 23237-4 Heart Rate 1: 56 bpm Height: 6'2" SpO2: 98% Weight: 180 lbs 07/21/2017 Blood Pressure 1: 120/78 Code: 8480-6 BMI: 21.8 Code: 65218-8 Heart Rate 1: 88 bpm Height: 6'2" SpO2: 97% Weight: 170 lbs 04/05/2017 Blood Pressure 1: 126/68 Code: 8480-6 BMI: 22.6 Code: 44936-9 Heart Rate 1: 80 bpm Height: 6'2" SpO2: 98% Weight: 176 lbs 03/22/2017 Blood Pressure 1: 120/72 Code: 8480-6 BMI: 22.5 Code: 44602-2 Heart Rate 1: 82 bpm Height: 6'2" SpO2: 98% Temperature: 36.8 (C) / 98.3 (F) Weight: 175 lbs 02/24/2017 Blood Pressure 1: 120/62 Code: 8480-6 BMI: 22.5 Code: 85099-9 Heart Rate 1: 84 bpm Height: 6'2" SpO2: 98% Weight: 175 lbs 08/20/2016 Blood Pressure 1: 126/78 Code: 8480-6 BMI: 24.1 Code: 56503-5 Heart Rate 1: 84 bpm Height: 6'2" SpO2: 98% Temperature: 37.1 (C) / 98.8 (F) Weight: 188 lbs 06/10/2016 Blood Pressure 1: 124/62 Code: 8480-6 BMI: 24.4 Code: 74720-6 Heart Rate 1: 85 bpm Height: 6'2" SpO2: 98% Weight: 190 lbs 02/07/2016 Blood Pressure 1: 128/72 Code: 8480-6 BMI: 23.6 Code: 64897-5 Heart Rate 1: 78 bpm Height: 6'2" SpO2: 96% Weight: 184 lbs 01/08/2016 Blood Pressure 1: 108/70 Code: 8480-6 BMI: 23.4 Code: 02434-3 Heart Rate 1: 84 bpm Height: 6'2" SpO2: 96% Weight: 182 lbs 07/30/2015 Blood Pressure 1: 110/64 Code: 8480-6 BMI: 22.6 Code: 54201-9 Heart Rate 1: 78 bpm Height: 6'2" SpO2: 98% Weight: 176 lbs 03/22/2015 Blood Pressure 1: 126/80 Code: 8480-6 BMI: 24.0 Code: 08641-1 Heart Rate 1: 76 bpm Height: 6'2" SpO2: 98% Weight: 187 lbs 06/20/2012 Blood Pressure 1: 110/76 Code: 8480-6 Heart Rate 1: 100 bpm Temperature: 38.7 (C) / 101.7 (F) Weight: 169 lbs 03/18/2012 Blood Pressure 1: 132/70 Code: 8480-6 Heart Rate 1: 80 bpm Weight: 160 lbs 06/30/2011 Blood Pressure 1: 110/72 Code: 8480-6 BMI: 23.9 Code: 58351-3 Heart Rate 1: 72 bpm Height: 6'2" Respiratory Rate: 20 bpm Weight: 186 lbs 03/09/2011 Blood Pressure 1: 96/58 Code: 8480-6 BMI: 23.2 Code: 41968- 5 Heart Rate 1: 80 bpm Height: 6'2" Respiratory Rate: 16 bpm Weight: 183 lbs 01/12/2011 Blood Pressure 1: 126/80 Code: 8480-6 BMI: 23.5 Code: 87549-3 Heart Rate 1: 82 bpm Height: 6'2" Respiratory Rate: 16 bpm Weight: 183 lbs Functional Status No Functional Status data History of Present Illness Symptom Name Status Result Effective Date Notes cyst Location left groin 02/22/2018 None cyst [...] 04/05/2017 None rash Location-Head/Neck on the left hindu 04/05/2017 None rash Location-Head/Neck on the forehead [...] Encounters Encounter Performer Location Codes Date () 05498 EST. PATIENT, LEVEL III Diagnosis: Scrotal varices[ICD10: I86.1] Diagnosis: Inflammatory disorders of scrotum[ICD10: N49.2] Gin Riggs MD, [facility] CPT-4: 51323 02/22/2018 42012 EST. PATIENT, LEVEL III Diagnosis: Dysuria[ICD10: R30.0] Cherry Riggs MD, [facility] CPT-4: 96810 02/16/2018 ([id number]) 39635 EST. PATIENT, LEVEL III Diagnosis: Pain in left knee[ICD10: M25.562] Gin Riggs MD, [facility] CPT- 4: 22892 12/20/2017 ([id number]) PREV VISIT EST AGE 40-64 Diagnosis: Encounter for general adult medical examination without abnormal findings[ICD10: Z00.00] Diagnosis: Dysuria[ICD10: R30.0] Diagnosis: Other allergic rhinitis[ICD10: J30.89] Gin Riggs MD, [facility] CPT-4: 10338 11/26/2017 43334 EST. PATIENT, LEVEL IV Diagnosis: Other acute sinusitis[ICD10: J01.80] Diagnosis: Other allergic rhinitis[ICD10: J30.89] Cherry Riggs MD, [facility] CPT- 4: 70463 07/21/2017 46401 EST. PATIENT, LEVEL IV Diagnosis: Allergic contact dermatitis due to plants, except food[ICD10: L23.7] Cherry Riggs MD, [facility] CPT-4: 59056 04/05/2017 ([id number]) 58705 EST. PATIENT, LEVEL III Diagnosis: Acute recurrent maxillary sinusitis[ICD10: J01.01] Gin Riggs MD, [facility] CPT-4: 59382 03/22/2017 [id number] EST. PATIENT, LEVEL IV Diagnosis: Other acute sinusitis[ICD10: J01.80] Diagnosis: Other allergic rhinitis[ICD10: J30.89] Cherry Riggs MD, [facility] CPT- 4: 62883 02/24/2017 ([id number]) 54181 EST. PATIENT, LEVEL III Diagnosis: Acute laryngopharyngitis[ICD10: J06.0] Gin Riggs MD, [facility] CPT-4: 13911 08/20/2016 44287 EST. PATIENT, LEVEL III Diagnosis: Pain in right shoulder[ICD10: M25.511] Cherry Riggs MD, [facility] CPT- 4: 25018 06/10/2016 ([id number]) 39509 EST. PATIENT, LEVEL II Diagnosis: Melanocytic nevi, unspecified[ICD10: D22.9] Gin Riggs MD, [facility] CPT-4: 10757 02/07/2016 49962 EST. PATIENT, LEVEL III Diagnosis: Other acute sinusitis[ICD10: J01.80] Diagnosis: Other allergic rhinitis[ICD10: J30.89] Cherry Riggs MD, [facility] CPT- 4: 84019 01/08/2016 ([id number]) 91473 EST. PATIENT, LEVEL III Diagnosis: Acute recurrent maxillary sinusitis[ICD10: J01.01] Gin Riggs MD, [facility] CPT-4: 75690 07/30/2015 ([id number]) PREV VISIT EST AGE 18-39 Diagnosis: Encounter for general adult medical examination without abnormal findings[ICD10: Z00.00] Diagnosis: Allergic rhinitis, unspecified[ICD10: J30.9] Gin Riggs MD, [facility] CPT-4: 82116 03/22/2015 ([id number]) 39380 EST. PATIENT, LEVEL III Diagnosis: Influenza[ICD9: 487.1] Gin Riggs MD, [facility] CPT-4: 40879 06/20/2012 11526 EST. PATIENT, LEVEL II Diagnosis: DYSURIA[ICD9: 788.1] Diagnosis: Screen for sexually transmitted diseases[ICD9: V74.5] [facility] CPT-4: 29246 03/18/2012 ([id number]) 39105 EST. PATIENT, LEVEL III Diagnosis: ACUTE SINUSITIS[ICD9: 461.9] Gin Riggs MD, [facility] CPT-4: 44911 06/30/2011 [id number] EST. PATIENT, LEVEL IV Diagnosis: ESOPHAGEAL REFLUX[ICD9: 530.81] Diagnosis: Constipation[ICD9: 564.00] Claire Riggs MD, [facility] CPT-4: 03856 03/09/2011 OFFICE VISIT, NEW - LEVEL 3 Diagnosis: Encounter for annual health examination[ICD9: V70.0] Diagnosis: Esophageal reflux[ICD9: 530.81] Claire Riggs MD, [facility] CPT-4: 41292 01/12/2011 Plan of Care Planned Activity Notes Codes Status Date Patient Education: Patient Medication Summary Completed 03/15/2018 Visit Plan: Varicocele-grade 3 -discussed with Dr Riggs - start an aspirin daily - discussed anti inflammatories, supportive underwear and to call if symptoms do not resolve or if any worse. Patient verbalized understanding of plan. 02/22/2018 Appointment: Gin Dooley WPtel: [address] [place], [place] [phone] (15 min) Moderate 02/22/2018 Patient Education: Patient [...] to urology 02/16/2018 Appointment: Cherry Wagoner WPtel: [id number] (15 min) Moderate 02/16/2018 Patient Education: Patient Medication Summary Completed 02/16/2018 Patient Education: Patient Medication Summary Completed 01/03/2018 Visit Plan: Left knee pain -suspect meniscal injury -will xray knee today and then schedule MRI for further evaluation -discussed rest, ice and anti inflammatories as directed 12/20/2017 Appointment: Gin Dooley WPtel: [id number] (15 min) Moderate 12/20/2017 Patient Education: Patient Medication Summary Completed 12/20/2017 Care Plan: X-RAY EXAM OF KNEE 3 [facility] : [address]-3 Pending 12/20/2017 Visit Plan: Well Adult - [...] not improve. 11/26/2017 Appointment: Gin Dooley [facility] [id number] (15 min) Moderate 11/26/2017 Patient Education: Patient [...] allergy spray. 07/21/2017 Appointment: Cherry Wagoner WPtel: [phone] [facility] (15 min) Moderate 07/21/2017 Patient Education: Patient Medication Summary Completed 07/21/2017 Visit Plan: Poison Ruthy - pt is to use topical treatments as directed. Pt is cleanse clothing in hot water with soap, and call if symptoms do not improve or if they worsen. 04/05/2017 Appointment: Cherry Wagoner WPtel: [phone] [facility]66[facility] (10 min) Simple 04/05/2017 Patient [...] spray. 03/22/2017 Appointment: Gin Dooley WPtel: [phone] [id number] [place] (15 min) Moderate 03/22/2017 Patient Education: Patient [...] allergy spray. 02/24/2017 Appointment: Cherry Wagoner WPtel: [facility] [place] (15 min) Moderate 02/24/2017 Patient Education: [...] for fever/discomfort. 08/20/2016 Appointment: Gin Dooley WPtel: [phone] [place] (10 min) Simple 08/20/2016 Patient Education: [...] for evaluation 02/07/2016 Appointment: Gin Dooley WPtel: [phone] [place] (30 min) Complex 02/07/2016 Patient Education: Patient Medication Summary Completed 02/07/2016 Care Plan: Referral Order SNOMED-CT : [id number] Pending 02/07/2016 Visit Plan: Sinusitis - Pt [...] the office 03/22/2015 Appointment: Gin Dooley [facility]Ptel[phone] [place] Physical 03/22/2015 Patient Education: Patient Medication Summary [...] any worse. 06/20/2012 Appointment: Gin Dooley WPtel: [address] [place], [place] [id number] [place] [address] 06/20/2012 Patient Education: Patient Medication Summary Completed [...] of testing. 03/18/2012 Appointment: Gin Dooley WPtel: [address] [place] [address] Other 03/18/2012 Patient Education: Patient Medication Summary Completed 03/18/2012 Appointment: Claire Riggs WPtel: [address] [place] [address] Lab Draw 03/17/2012 Patient Education: Patient Medication [...] not resolve. 06/30/2011 Appointment: Gin Dooley WPtel: [address] [place], [place] [id number] Other 06/30/2011 Patient Education: Patient Medication Summary [...] at 3:30pm. 03/09/2011 Appointment: Claire Riggs WPtel: [facility] Other 03/09/2011 Patient Education: Patient Medication Summary Completed 03/09/2011 Patient Education: .Ernesto ferraro Xavier Gomez Completed 03/09/2011 Visit Plan: Well Adult [...] exercise program. 01/12/2011 Appointment: Claire Riggs WPtel: [phone] [place] [place] Patient 01/12/2011 Patient Education: Patient Medication [...] do not improve or if they worsen. Continue Zyrtec D Add flonase 1 spray each nare twice daily Augmentin twice daily Call if sinus infection does not resolve and we can send in a prescription for an antibiotic nasal spray compound that [facility] pharmacy makes . Sinusitis - Pt has [...] any worse. Patient verbalized understanding of plan. aleve twice a day for the next [...] no improvement will refer to urology . Sinusitis - Pt has acute infection [...] spray. Kenalog injection today in the office COME WEDNESDAY FOR LABS CHECK UA XYZAL [...] is for March 25 at 3:30pm. . Sinusitis - Pt has acute infection [...] expected course, or if any worse. . Abnormal mole-right ankle-patients concerned-refer to Dr Greene for evaluation xray left knee aleve 2 pills twice daily (take with food) ice rest ortho 4 states if needs referral . Left knee pain -suspect meniscal injury -will xray knee today and then schedule MRI for further evaluation -discussed rest, ice and anti inflammatories as directed
--- OUTSIDE RECORDS SUMMARY | 2018-11-22 07:23 | XMS REPORT | CCD ---
Author Author [facility] Organization [facility] Address [address] [place] [address] Phone Care Team Providers Care Machine Feller Name Role Phone Claire Riggs PP Unavailable CCM Unavailable Summary Purpose Interface Exchange Insurance Providers Payer name Policy type / Coverage type Covered alliance party ID Effective Begin Date Effective End Date [facility] Blue Cross/[facility] [id number] Unknown Family history Mother Diagnosis Age At Onset Cancer Unknown Brother Diagnosis Age At Onset No Family Disease Entered N/A Grandmother Diagnosis Age At Onset Cancer Unknown Father Diagnosis Age At Onset No Family Disease Entered N/A Social History Social History Element Codes Description Effective Dates Marital status Unknown 01/12/2011 Employment Unknown 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 Unknown Has never used illegal drugs 01/12/2011 Allergies, Adverse Reactions, Alerts Substance Reaction Codes Entered Date Inactivated Date Status * NO KNOWN FOOD ALLERGIES Unknown 01/12/2011 No Inactive Date Active bactrim RxNorm: 385204 03/22/2015 No Inactive Date Active Past Medical [...] Start Date Stop Date Status Fill Instructions Augmentin 875 mg-125 mg tablet RxNorm: 685933 1 Tablet(s) PO BID 06/02/2018 06/08/2018 Active Zithromax Z-Surya 250 mg tablet RxNorm: 369432 1 Tablet(s) PO UD 03/24/2018 06/01/2018 Inactive Flonase 50 mcg/actuation nasal spray,suspension RxNorm: 7517410 1 [facility] NASAL BID 03/01/2018 No Stop Date Active Cipro 500 mg tablet RxNorm: 090390 1 Tablet(s) PO BID 02/16/2018 02/25/2018 Inactive Diflucan 150 mg tablet RxNorm: 601453 1 Tablet(s) PO daily start after cipro is finished 02/16/2018 02/22/2018 Inactive Augmentin 875 mg-125 mg tablet RxNorm: 746699 1 Tablet(s) PO BID 12/24/2017 12/23/2017 Inactive Augmentin 875 mg-125 mg tablet RxNorm: 461710 1 Tablet(s) PO BID 12/24/2017 12/30/2017 Inactive Keflex 500 mg capsule RxNorm: 532360 1 Capsule(s) PO TID 12/08/2017 12/14/2017 Inactive Yuridia-D 12 Hour 60 mg-120 mg tablet,extended release RxNorm: 330138 1 Tablet(s) PO BID 12/06/2017 No Stop Date Active Keflex 500 mg capsule RxNorm: 982777 1 Capsule(s) PO TID 11/26/2017 12/02/2017 Inactive Flonase 50 mcg/actuation nasal spray,suspension RxNorm: 5070898 1 [facility] NASAL BID 11/15/2017 02/28/2018 Inactive Yuridia Allergy 180 mg tablet RxNorm: 490904 1 Tablet(s) PO daily 10/27/2017 10/27/2017 Inactive Zyrtec-D 5 mg-120 mg tablet,extended release RxNorm: 0575702 1 Tablet(s) PO BID as needed 10/20/2017 No Stop Date Active Yuridia Allergy 180 mg tablet RxNorm: 159017 1 Tablet(s) PO daily 09/21/2017 10/20/2017 Inactive Augmentin 500 mg-125 mg tablet RxNorm: 002585 1 Tablet(s) PO TID 07/21/2017 07/30/2017 Inactive Yuridia Allergy 180 mg tablet RxNorm: 743056 1 Tablet(s) PO daily 07/21/2017 08/19/2017 Inactive Zyrtec-D 5 mg-120 mg tablet,extended release RxNorm: 3452795 1 Tablet(s) PO BID as needed 06/15/2017 10/19/2017 Inactive Zyrtec-D 5 mg-120 mg tablet,extended release RxNorm: 8541059 1 Tablet(s) PO BID as needed 05/11/2017 02/21/2018 Inactive prednisone 10 mg tablet RxNorm: 089153 Tablet(s) PO 04/05/2017 12/07/2017 Inactive 6,5,4,3,2,1 Kenalog 40 mg/mL suspension for injection RxNorm: 2831903 1 Milliliter(s) Inj 04/05/2017 04/05/2017 Inactive Flonase 50 mcg/actuation nasal spray,suspension RxNorm: 8393402 1 [facility] NASAL BID 04/01/2017 11/14/2017 Inactive Augmentin 875 mg-125 mg tablet RxNorm: 013414 1 Tablet(s) PO BID 03/22/2017 03/28/2017 Inactive prednisone 20 mg tablet RxNorm: 190059 2 Tablet(s) PO daily 03/02/2017 03/06/2017 Inactive prednisone 20 mg tablet RxNorm: 530391 2 Tablet(s) PO daily 03/02/2017 03/01/2017 Inactive Zithromax Z-Surya 250 mg tablet RxNorm: 614224 1 Tablet(s) PO UD 02/24/2017 03/21/2017 Inactive Kenalog 40 mg/mL suspension for injection RxNorm: 1313406 1 Milliliter(s) Inj 02/24/2017 02/24/2017 Inactive Zyrtec-D 5 mg-120 mg tablet,extended release RxNorm: 1790927 1 Tablet(s) PO BID as needed 02/05/2017 05/10/2017 Inactive Zyrtec-D 5 mg-120 mg tablet,extended release RxNorm: 7691953 1 Tablet(s) PO BID as needed 12/01/2016 02/04/2017 Inactive Zyrtec-D 5 mg-120 mg tablet,extended release RxNorm: 6364453 1 Tablet(s) PO BID as needed 11/03/2016 11/30/2016 Inactive Zyrtec-D 5 mg-120 mg tablet,extended release RxNorm: 9189339 1 Tablet(s) PO BID as needed 10/09/2016 11/02/2016 Inactive Kenalog 40 mg/mL suspension for injection RxNorm: 6162539 1 Milliliter(s) Inj 09/16/2016 09/16/2016 Inactive Levaquin 500 mg tablet RxNorm: 590480 1 Tablet(s) PO daily 09/15/2016 09/24/2016 Inactive Levaquin 500 mg tablet RxNorm: 891448 1 Tablet(s) PO daily 09/15/2016 09/14/2016 Inactive prednisone 20 mg tablet RxNorm: 930849 1 Tablet(s) PO BID 09/15/2016 09/19/2016 Inactive amoxicillin 500 mg tablet RxNorm: 278968 1 Tablet(s) PO BID 08/20/2016 08/29/2016 Inactive Augmentin 875 mg-125 mg tablet RxNorm: 787033 1 Tablet(s) PO BID 04/23/2016 04/28/2016 Inactive Zyrtec-D 5 mg-120 mg tablet,extended release RxNorm: 2792880 1 Tablet(s) PO BID as needed 01/31/2016 10/08/2016 Inactive Flonase 50 mcg/actuation nasal spray,suspension RxNorm: 3506504 1 [facility] NASAL BID 01/08/2016 01/22/2016 Inactive Flonase 50 mcg/actuation nasal spray,suspension RxNorm: 0198704 1 [facility] NASAL BID 01/08/2016 01/07/2016 Inactive 1 spray each nare x 5 days Zithromax Z-Surya 250 mg tablet RxNorm: 743769 Tablet(s) PO 01/08/2016 01/30/2016 Inactive Zyrtec-D 5 mg-120 mg tablet,extended release RxNorm: 9110171 1 Tablet(s) PO BID as needed 01/08/2016 01/30/2016 Inactive Augmentin 875 mg-125 mg tablet RxNorm: 608309 1 Tablet(s) PO BID 10/08/2015 10/17/2015 Inactive Augmentin 875 mg-125 mg tablet RxNorm: 453672 1 Tablet(s) PO BID 10/08/2015 10/07/2015 Inactive prednisone 20 mg tablet RxNorm: 717785 1 Tablet(s) PO BID 08/01/2015 08/05/2015 Inactive prednisone 20 mg tablet RxNorm: 002555 1 Tablet(s) PO BID 08/01/2015 07/31/2015 Inactive Kenalog 40 mg/mL suspension for injection RxNorm: 2648230 Milliliter(s) Inj 07/30/2015 07/30/2015 Inactive Zyrtec-D 5 mg-120 mg tablet,extended release RxNorm: 0146190 1 Tablet(s) PO BID as needed 07/30/2015 01/07/2016 Inactive Augmentin 875 mg-125 mg tablet RxNorm: 568136 1 Tablet(s) PO BID 07/30/2015 08/05/2015 Inactive Kenalog 40 mg/mL suspension for injection RxNorm: 8818944 1 Milliliter(s) Inj 03/22/2015 03/22/2015 Inactive Flonase 50 mcg/actuation Nasal [facility] RxNorm: 0905498 1 [facility] NASAL 07/12/2012 07/11/2012 Inactive 1 spray each nare x 5 days Flonase 50 mcg/actuation Nasal [facility] RxNorm: 0878299 1 [facility] NASAL 07/12/2012 07/16/2012 Inactive 1 spray each nare x 5 days cefdinir 300 mg capsule RxNorm: 191689 1 Capsule(s) PO BID 07/12/2012 07/18/2012 Inactive cefdinir 300 mg capsule RxNorm: 741000 1 Capsule(s) PO BID 07/12/2012 07/11/2012 Inactive Tamiflu 75 mg capsule RxNorm: 925107 1 Capsule(s) PO BID 06/20/2012 06/24/2012 Inactive Tamiflu 75 mg capsule RxNorm: 833045 1 Capsule(s) PO BID 06/20/2012 06/19/2012 Inactive Diflucan 150 mg tablet RxNorm: 648112 1 Tablet(s) PO daily 04/21/2012 05/04/2012 Inactive nystatin 100,000 unit/g Topical Cream RxNorm: 628813 1 Application TOP TID 04/13/2012 05/02/2012 Inactive one application to groin tid Diflucan 150 mg tablet RxNorm: 048955 1 Tablet(s) PO daily 04/04/2012 04/06/2012 Inactive nystatin 100,000 unit/g Topical Cream RxNorm: 862359 1 Application TOP TID 04/04/2012 04/03/2012 Inactive one application to groin tid x 10 day nystatin 100,000 unit/g Topical Cream RxNorm: 395720 1 Application TOP TID 04/04/2012 04/12/2012 Inactive one application to groin tid x 10 day Diflucan 150 mg tablet RxNorm: 041533 1 Tablet(s) PO daily 03/23/2012 03/22/2012 Inactive Diflucan 150 mg tablet RxNorm: 752234 1 Tablet(s) PO daily 03/23/2012 03/29/2012 Inactive Rocephin 1 gram Solution for Injection RxNorm: 007267 Inj 03/18/2012 03/18/2012 Inactive Augmentin 500 mg-125 mg tablet RxNorm: 823967 1 Tablet(s) PO TID 03/11/2012 03/10/2012 Inactive Augmentin 500 mg-125 mg tablet RxNorm: 683561 1 Tablet(s) PO TID 03/11/2012 03/17/2012 Inactive Kenalog 40 mg/mL Susp for Injection RxNorm: 7361267 1 Milliliter(s) Inj 07/02/2011 07/02/2011 Inactive Rocephin 500 mg Solution for Injection RxNorm: 586674 1 Milliliter(s) Inj 07/02/2011 07/02/2011 Inactive Bactrim DS 800 mg-160 mg Tab RxNorm: 961214 1 Tablet(s) PO BID 06/30/2011 07/09/2011 Inactive Aspirin For Children 81 mg Chewable Tab RxNorm: 449269 1 Tablet(s) PO daily No Start Date Active multivitamin Oral RxNorm: Oral No Start Date Active omeprazole 40 mg Cap, Delayed Release RxNorm: 810902 1 Capsule(s) PO PRN No Start Date Active Yuridia-D 12 Hour 60 mg-120 mg tablet,extended release RxNorm: 668350 1 Tablet(s) PO BID No Start Date 12/05/2017 Inactive Zithromax 500 mg tablet RxNorm: 152584 2 Tablet(s) PO daily No Start Date 01/30/2016 Inactive Zyrtec-D 5 mg-120 mg 12 hr Tab RxNorm: 3018449 1 Tablet(s) PO daily No Start Date 07/29/2015 Inactive Medication Administered Medication Codes Instructions Start Date Status Kenalog 40 mg/mL suspension for injection RxNorm: 7259880 1Milliliter 04/05/2017 No longer Active Kenalog 40 mg/mL suspension for injection RxNorm: 8734774 1Milliliter 02/24/2017 No longer Active Kenalog 40 mg/mL suspension for injection RxNorm: 3106060 1Milliliter 09/16/2016 No longer Active Kenalog 40 mg/mL suspension for injection RxNorm: 2969463 [facility] 07/30/2015 No longer Active Kenalog 40 mg/mL suspension for injection RxNorm: 3243356 1Milliliter 03/22/2015 No longer Active Rocephin 1 gram Solution for Injection RxNorm: 369066 03/18/2012 No longer Active Kenalog 40 mg/mL Susp for Injection RxNorm: 9777537 1[facility]il[facility] 07/02/2011 No longer Active Rocephin 500 mg Solution for Injection RxNorm: 502738 1Milliliter 07/02/2011 No longer Active Immunizations Vaccine [...] Item Item Code Result Date Comp Metabolic Lpr158 NA 139 mEq/L 03/15/2018 Comp Metabolic Tmb119 K 4.2 mEq/L 03/15/2018 Comp Metabolic Udd039 CL 101 mEq/L 03/15/2018 Comp Metabolic Mwg070 CO2 32.0 mEq/L 03/15/2018 Comp Metabolic Wdz406 ANION GAP 10 03/15/2018 Comp Metabolic Otd827 GLUCOSE 94 mg/dL 03/15/2018 Comp Metabolic Whx949 Creat 0.9 mg/dL 03/15/2018 Comp Metabolic Ldf510 eGFR 104 ml/min/1.73m2 03/15/2018 Comp Metabolic Tlo048 BUN 14 mg/dL 03/15/2018 Comp Metabolic Reu088 B/C Ratio 16.3 Ratio 03/15/2018 Comp Metabolic Hih671 CALCIUM 9.8 mg/dL 03/15/2018 Comp Metabolic Esg594 ALK PHOS 75 U/L 03/15/2018 Comp Metabolic Oig165 AST(SGOT) 20 U/L 03/15/2018 Comp Metabolic Vim348 ALT(SGPT) 30 U/L 03/15/2018 Comp Metabolic Tgf872 BILI T 1.2 mg/dL 03/15/2018 Comp Metabolic Unt912 ALBUMIN 4.7 g/dL 03/15/2018 Comp Metabolic Uqk714 TPRO 7.2 g/dL 03/15/2018 Comp Metabolic Wsp869 GLOB 2.5 g/dL 03/15/2018 Comp Metabolic Gcb513 A/G Ratio 1.9 Ratio 03/15/2018 Comp Metabolic Cxf100 Osmo 278 mOsmo 03/15/2018 Urine Culture Ucult [...] if culture needed 01/04/2018 Hepatitis Panel (Abc) 17573 HEPATITIS B SURFACE AG . 12/09/2017 Hepatitis Panel (Abc) 68133 HEPATITIS B SURFACE AG NEGATIVE 12/09/2017 Hepatitis Panel (Abc) 92067 HEPATITIS B CORE AB, IGM . 12/09/2017 Hepatitis Panel (Abc) 99055 HEPATITIS B CORE AB, IGM NEGATIVE 12/09/2017 Hepatitis Panel (Abc) 14534 HEPATITIS A AB, IGM . 12/09/2017 Hepatitis Panel (Abc) 08965 HEPATITIS A AB, IGM NEGATIVE 12/09/2017 Hepatitis Panel (Abc) 18710 HEPATITIS C ANTIBODY . 12/09/2017 Hepatitis Panel (Abc) 85120 HEPATITIS C ANTIBODY NEGATIVE 12/09/2017 Tsh Ord6 TSH (3rd IS) 2.24 uIU/mL 11/29/2017 Comp Metabolic Iua381 NA 138 mEq/L 11/29/2017 Comp Metabolic Pmc216 K 4.1 mEq/L 11/29/2017 Comp Metabolic Adp028 CL 101 mEq/L 11/29/2017 Comp Metabolic Ljj191 CO2 30.0 mEq/L 11/29/2017 Comp Metabolic Gbb603 ANION GAP 11 11/29/2017 Comp Metabolic Wbr002 GLUCOSE 89 mg/dL 11/29/2017 Comp Metabolic Swi736 Creat 0.8 mg/dL 11/29/2017 Comp Metabolic Nvh812 eGFR 107 ml/min/1.73m2 11/29/2017 Comp Metabolic Tho881 BUN 15 mg/dL 11/29/2017 Comp Metabolic Taq541 B/C Ratio 17.9 Ratio 11/29/2017 Comp Metabolic Rqt039 CALCIUM 9.4 mg/dL 11/29/2017 Comp Metabolic Qka376 ALK PHOS 71 U/L 11/29/2017 Comp Metabolic Xys962 AST(SGOT) 19 U/L 11/29/2017 Comp Metabolic Vpb660 ALT(SGPT) 27 U/L 11/29/2017 Comp Metabolic Iqn443 BILI T 1.8 mg/dL 11/29/2017 Comp Metabolic Kul903 ALBUMIN 4.4 g/dL 11/29/2017 Comp Metabolic Gvt039 TPRO 6.8 g/dL 11/29/2017 Comp Metabolic Oqp083 GLOB 2.5 g/dL 11/29/2017 Comp Metabolic Vdk209 A/G Ratio 1.8 Ratio 11/29/2017 Comp Metabolic Tck601 Osmo 276 mOsmo 11/29/2017 Urine Culture Ucult [...] 82.7 fl 11/29/2017 Cbc With Differential Ord2 [place]% 8.3 % 11/29/2017 Cbc With Differential Ord2 MCH 27.4 pg 11/29/2017 Cbc With Differential Ord2 MCHC 33.1 pg 11/29/2017 Cbc With Differential Ord2 Eos% 1.8 % 11/29/2017 Cbc With Differential Ord2 PLT 280 K/ul 11/29/2017 Cbc With Differential Ord2 Baso% 0.1 % 11/29/2017 Cbc With Differential Ord2 Neut ABS# 4.45 K/ul 11/29/2017 Cbc With Differential Ord2 RDW 13.5 % 11/29/2017 Cbc With Differential Ord2 Lymph ABS# 3.16 K/ul 11/29/2017 Cbc With Differential Ord2 [place] ABS# 0.7 K/ul 11/29/2017 Cbc With Differential Ord2 Eos ABS# 0.2 K/ul 11/29/2017 Cbc With Differential Ord2 Baso ABS# 0.0 K/ul 11/29/2017 C RAP A SC [id number] Strep A Negative 08/20/2016 GC/CHL PRB 2275883 SOURCE CASSANDRA UNKNOWN 03/19/2012 GC/CHL PRB 9991314 CHLM PROBE NEG 03/19/2012 GC/CHL PRB 2893128 GC PROBE NEG 03/19/2012 URINALYSIS NONAUTO W/O SCOPE 73149 Specific [place] 1.010 DateTime(Free Text in Aprima) URINALYSIS NONAUTO W/O SCOPE 24358 PH 6.5 DateTime(Free Text in Aprima) URINALYSIS NONAUTO W/O SCOPE 02123 GLUCOSE neg DateTime(Free Text in Aprima) URINALYSIS NONAUTO W/O SCOPE 84640 Protein neg DateTime(Free Text in Aprima) URINALYSIS NONAUTO W/O SCOPE 92320 Blood neg DateTime(Free Text in Aprima) URINALYSIS NONAUTO W/O SCOPE 68136 Bilirubin neg DateTime(Free Text in Aprima) URINALYSIS NONAUTO W/O SCOPE 61646 Ketones neg DateTime(Free Text in Aprima) URINALYSIS NONAUTO W/O SCOPE 23313 Urobilinogen neg DateTime(Free Text in Aprima) URINALYSIS NONAUTO W/O SCOPE 67213 Nitrite neg DateTime(Free Text in Aprima) URINALYSIS NONAUTO W/O SCOPE 28924 Leukocytes neg DateTime(Free Text in Aprima) Review [...] developed 11/26/2017 None Full Exam - General 1995 Constitutional general appearance Overall: in no acute distress 11/26/2017 None Full Exam - General 1995 Constitutional general appearance Overall: well nourished 11/26/2017 [...] CPT-4: J3301 02/24/2017 THER/PROPH/DIAG INJ SC/IM CPT-4: 55232 09/16/2016 TRIAMCINOLONE ACET INJ NOS CPT-4: J3301 09/16/2016 TRIAMCINOLONE ACET INJ NOS CPT-4: J3301 07/30/2015 TRIAMCINOLONE ACET INJ NOS CPT-4: J3301 03/22/2015 ROCEPHIN, PER 250 MG CPT- 4: J0696 03/18/2012 URINALYSIS NONAUTO W/O SCOPE CPT-4: 77757 03/17/2012 ROCEPHIN, PER 250 MG CPT- 4: J0696 06/30/2011 TRIAMCINOLONE ACET INJ NOS CPT-4: J3301 06/30/2011 Vital Signs Date Vital 02/22/2018 Blood Pressure 1: 110/80 Code: 8480-6 Heart Rate 1: 74 bpm Height: 6'2" SpO2: 98% Weight: 02/16/2018 Blood Pressure 1: 130/72 Code: 8480-6 BMI: 24.0 Code: 10194-8 Heart Rate 1: 82 bpm Height: 6'2" SpO2: 97% Weight: 187 lbs 12/20/2017 Blood Pressure 1: 128/88 Code: 8480-6 BMI: 23.1 Code: 74880-3 Heart Rate 1: 86 bpm Height: 6'2" SpO2: 98% Weight: 180 lbs 11/26/2017 Blood Pressure 1: 122/80 Code: 8480-6 BMI: 23.1 Code: 07095-4 Heart Rate 1: 56 bpm Height: 6'2" SpO2: 98% Weight: 180 lbs 07/21/2017 Blood Pressure 1: 120/78 Code: 8480-6 BMI: 21.8 Code: 38823-4 Heart Rate 1: 88 bpm Height: 6'2" SpO2: 97% Weight: 170 lbs 04/05/2017 Blood Pressure 1: 126/68 Code: 8480-6 BMI: 22.6 Code: 87100-0 Heart Rate 1: 80 bpm Height: 6'2" SpO2: 98% Weight: 176 lbs 03/22/2017 Blood Pressure 1: 120/72 Code: 8480-6 BMI: 22.5 Code: 26685-8 Heart Rate 1: 82 bpm Height: 6'2" SpO2: 98% Temperature: 36.8 (C) / 98.3 (F) Weight: 175 lbs 02/24/2017 Blood Pressure 1: 120/62 Code: 8480-6 BMI: 22.5 Code: 02924-4 Heart Rate 1: 84 bpm Height: 6'2" SpO2: 98% Weight: 175 lbs 08/20/2016 Blood Pressure 1: 126/78 Code: 8480-6 BMI: 24.1 Code: 22211-2 Heart Rate 1: 84 bpm Height: 6'2" SpO2: 98% Temperature: 37.1 (C) / 98.8 (F) Weight: 188 lbs 06/10/2016 Blood Pressure 1: 124/62 Code: 8480-6 BMI: 24.4 Code: 99403-5 Heart Rate 1: 85 bpm Height: 6'2" SpO2: 98% Weight: 190 lbs 02/07/2016 Blood Pressure 1: 128/72 Code: 8480-6 BMI: 23.6 Code: 73558-0 Heart Rate 1: 78 bpm Height: 6'2" SpO2: 96% Weight: 184 lbs 01/08/2016 Blood Pressure 1: 108/70 Code: 8480-6 BMI: 23.4 Code: 80236-8 Heart Rate 1: 84 bpm Height: 6'2" SpO2: 96% Weight: 182 lbs 07/30/2015 Blood Pressure 1: 110/64 Code: 8480-6 BMI: 22.6 Code: 60806-7 Heart Rate 1: 78 bpm Height: 6'2" SpO2: 98% Weight: 176 lbs 03/22/2015 Blood Pressure 1: 126/80 Code: 8480-6 BMI: 24.0 Code: 48077-4 Heart Rate 1: 76 bpm Height: 6'2" SpO2: 98% Weight: 187 lbs 06/20/2012 Blood Pressure 1: 110/76 Code: 8480-6 Heart Rate 1: 100 bpm Temperature: 38.7 (C) / 101.7 (F) Weight: 169 lbs 03/18/2012 Blood Pressure 1: 132/70 Code: 8480-6 Heart Rate 1: 80 bpm Weight: 160 lbs 06/30/2011 Blood Pressure 1: 110/72 Code: 8480-6 BMI: 23.9 Code: 44190-4 Heart Rate 1: 72 bpm Height: 6'2" Respiratory Rate: 20 bpm Weight: 186 lbs 03/09/2011 Blood Pressure 1: 96/58 Code: 8480-6 BMI: 23.2 Code: 06979- 5 Heart Rate 1: 80 bpm Height: 6'2" Respiratory Rate: 16 bpm Weight: 183 lbs 01/12/2011 Blood Pressure 1: 126/80 Code: 8480-6 BMI: 23.5 Code: 45689-1 Heart Rate 1: 82 bpm Height: 6'2" [...] 04/05/2017 None rash Location-Head/Neck on the left baptism 04/05/2017 None rash Location-Head/Neck on the forehead [...] Encounters Encounter Performer Location Codes Date () 72169 EST. 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 CPT-4: 01304 02/22/2018 48007 EST. PATIENT, LEVEL III Diagnosis: Dysuria[ICD10: R30.0] Cherry Riggs MD, [facility] CPT-4: 64329 02/16/2018 ([id number]) 67641 EST. PATIENT, LEVEL III Diagnosis: Pain in left knee[ICD10: M25.562] Gin Riggs MD [facility] CPT- 4: 48846 12/20/2017 ([id number]) PREV VISIT EST AGE 40-64 Diagnosis: Encounter for general adult medical examination without abnormal findings[ICD10: Z00.00] Diagnosis: Dysuria[ICD10: R30.0] Diagnosis: Other allergic rhinitis[ICD10: J30.89] Gin Riggs MD, [facility] CPT-4: 48910 11/26/2017 29426 EST. PATIENT, LEVEL IV Diagnosis: Other acute sinusitis[ICD10: J01.80] Diagnosis: Other allergic rhinitis[ICD10: J30.89] Cherry Riggs MD, [facility] CPT- 4: 83413 07/21/2017 02081 EST. PATIENT, LEVEL IV Diagnosis: Allergic contact dermatitis due to plants, except food[ICD10: L23.7] Cherry Riggs MD [facility] CPT-4: 29804 04/05/2017 ([id number]) 75766 EST. PATIENT, LEVEL III Diagnosis: Acute recurrent maxillary sinusitis[ICD10: J01.01] Gin Riggs MD, [facility] CPT-4: 17218 03/22/2017 27974 EST. PATIENT, LEVEL IV Diagnosis: Other acute sinusitis[ICD10: J01.80] Diagnosis: Other allergic rhinitis[ICD10: J30.89] Cherry Riggs MD, [facility] CPT- 4: 80282 02/24/2017 ([id number]) 02389 EST. PATIENT, LEVEL III Diagnosis: Acute laryngopharyngitis[ICD10: J06.0] Gin Riggs MD, [facility] CPT-4: 34623 08/20/2016 64740 EST. PATIENT, LEVEL III Diagnosis: Pain in right shoulder[ICD10: M25.511] Cherry Riggs MD, [facility] CPT- 4: 83534 06/10/2016 ([id number]) 30023 EST. PATIENT, LEVEL II Diagnosis: Melanocytic nevi, unspecified[ICD10: D22.9] Gin Riggs MD, [facility] CPT-4: 13862 02/07/2016 55679 EST. PATIENT, LEVEL III Diagnosis: Other acute sinusitis[ICD10: J01.80] Diagnosis: Other allergic rhinitis[ICD10: J30.89] Cherry Riggs MD, [facility] CPT- 4: 95356 01/08/2016 ([id number]) 78511 EST. PATIENT, LEVEL III Diagnosis: Acute recurrent maxillary sinusitis[ICD10: J01.01] Gin Riggs MD, [facility] CPT-4: 00891 07/30/2015 ([id number]) PREV VISIT EST AGE 18-39 Diagnosis: Encounter for general adult medical examination without abnormal findings[ICD10: Z00.00] Diagnosis: Allergic rhinitis, unspecified[ICD10: J30.9] Gin Riggs MD, [facility] CPT-4: 13911 03/22/2015 ([id number]) 31780 EST. PATIENT, LEVEL III Diagnosis: Influenza[ICD9: 487.1] Gin Riggs MD, [facility] CPT-4: 31154 06/20/2012 28203 EST. PATIENT, LEVEL II Diagnosis: DYSURIA[ICD9: 788.1] Diagnosis: Screen for sexually transmitted diseases[ICD9: V74.5] Gin Riggs MD, [facility] CPT-4: 01878 03/18/2012 ([id number]) 55146 EST. PATIENT, LEVEL III Diagnosis: ACUTE SINUSITIS[ICD9: 461.9] Gin Riggs MD, [facility] CPT-4: 13965 06/30/2011 92892 EST. PATIENT, LEVEL IV Diagnosis: ESOPHAGEAL REFLUX[ICD9: 530.81] Diagnosis: Constipation[ICD9: 564.00] [facility] CPT-4: 21150 03/09/2011 OFFICE VISIT, NEW - LEVEL 3 Diagnosis: Encounter for annual health examination[ICD9: V70.0] Diagnosis: Esophageal reflux[ICD9: 530.81] [facility] CPT-4: 52394 01/12/2011 Plan of Care Planned Activity Notes Codes Status Date Patient Education: Patient Medication Summary Completed 03/15/2018 Visit Plan: Varicocele-grade 3 -discussed with Dr Riggs - start an aspirin daily - discussed anti inflammatories, supportive underwear and to call if symptoms do not resolve or if any worse. Patient verbalized understanding of plan. 02/22/2018 Appointment: Gin Dooley WPtel: [phone] (15 min) Moderate 02/22/2018 Patient Education: [...] urology 02/16/2018 Appointment[facility] [place] (15 min) Moderate 02/16/2018 Patient Education: Patient Medication Summary Completed 02/16/2018 Patient Education: Patient Medication Summary Completed 01/03/2018 Visit Plan: Left knee pain -suspect meniscal injury -will xray knee today and then schedule MRI for further evaluation -discussed rest, ice and anti inflammatories as directed 12/20/2017 Appointment: Gin Dooley WPtel: [phone] [phone] [place] (15 min) Moderate 12/20/2017 Patient Education: Patient Medication Summary Completed 12/20/2017 Care Plan: X-RAY EXAM OF KNEE 3 [facility] : 77369-9 Pending 12/20/2017 Visit Plan: Well Adult - [...] not improve. 11/26/2017 Appointment: [facility] Dooley [facility]Ptel[phone] (15 min) Moderate 11/26/2017 Patient Education: Patient [...] spray. 07/21/2017 Appointment: Cherry Wagoner WPtel[facility] (15 min) Moderate 07/21/2017 Patient Education: Patient Medication Summary Completed 07/21/2017 Visit Plan: Poison [place] - pt is to use topical treatments as directed. Pt is cleanse clothing in hot water with soap, and call if symptoms do not improve or if they worsen. 04/05/2017 Appointment: Cherry Wagoner WPtel: [phone] [facility] [place] (10 min) Simple 04/05/2017 Patient Education: [...] spray. 03/22/2017 Appointment: Gin Dooley WPtel: [phone] [phone] [place] (15 min) Moderate 03/22/2017 Patient Education: [...] spray. 02/24/2017 Appointment: Cherry Wagoner WPtel: [phone] [facility] [place] (15 min) Moderate 02/24/2017 Patient [...] fever/discomfort. 08/20/2016 Appointment: Gin Dooley WPtel: [phone] [phone] (10 min) Simple 08/20/2016 Patient Education: [...] for evaluation 02/07/2016 Appointment: Gin Dooley WPtel: [phone] [phone] (30 min) Complex 02/07/2016 Patient Education: Patient Medication Summary Completed 02/07/2016 Care Plan: Referral Order SNOMED-CT : [id number] Pending 02/07/2016 Visit Plan: Sinusitis - Pt [...] office 03/22/2015 Appointment: Gin Dooley WPtel: [facility] [id number] Physical 03/22/2015 Patient Education: Patient Medication Summary [...] worse. 06/20/2012 Appointment: Gin Dooley WPtel: [id number] [facility] 06/20/2012 Patient Education: Patient Medication Summary [...] of testing. 03/18/2012 Appointment: Gin Dooley WPtel: [facility]0 [id number] [place] [address] Other 03/18/2012 Patient Education: Patient Medication Summary Completed 03/18/2012 Appointment: Claire Riggs WPtel: [facility]8 [facility] Lab Draw 03/17/2012 Patient Education: Patient Medication [...] not resolve. 06/30/2011 Appointment: Gin Dooley WPtel: [address] [place], [place] [id number] [place] [address] Other 06/30/2011 Patient Education: Patient Medication Summary [...] 3:30pm. 03/09/2011 Appointment: Claire Riggs WPtel: [facility] Other 03/09/2011 Patient Education: Patient Medication [...] exercise program. 01/12/2011 Appointment: Claire Riggs WPtel: [facility] [facility] 01/12/2011 Patient Education: Patient Medication Summary Completed 01/12/2011 Referral: Maranda Greene WPtel: Referral Appointment Requested Instructions Comment . Pharyngitis-Discussed natural and expected course of [...] for pain. Tylenol/motrin as needed for fever/discomfort. bring labs by the office take the [...] expected course, or if any worse. . ESOPHAGEAL REFLUX- recommend pt to take [...] any worse. Patient verbalized understanding of plan. Continue Zyrtec D Add flonase 1 spray each nare twice daily Augmentin twice daily Call if sinus infection does not resolve and we can send in a prescription for an antibiotic nasal spray compound that [facility] makes . Sinusitis - Pt [...] do not improve or if they worsen. COME WEDNESDAY FOR LABS CHECK UA XYZAL [...] call if symptoms do not improve. . Abnormal mole-right ankle-patients concerned-refer to Dr [...]
--- OUTSIDE RECORDS SUMMARY | 2018-11-22 07:25 | XMS REPORT | CCD ---
Author Author [facility] Organization [facility] Address [address] [place] [address] Phone Care Team Providers Care Ug Designer Name Role Phone Claire Riggs PP Unavailable CCM Unavailable Summary Purpose Interface Exchange Insurance Providers Payer name Policy type / Coverage type Covered alliance party ID Effective Begin Date Effective End Date [facility] [id number] Unknown Family history Mother Diagnosis Age At Onset Cancer Unknown Brother Diagnosis Age At Onset No Family Disease Entered N/A Grandmother Diagnosis Age At Onset Cancer Unknown Father Diagnosis Age At Onset No Family Disease Entered N/A Social History Social History Element Codes Description Effective Dates Marital status Unknown 01/12/2011 Employment Unknown 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 Unknown Has never used illegal drugs 01/12/2011 Allergies, Adverse Reactions, Alerts Substance Reaction Codes Entered Date Inactivated Date Status * NO KNOWN FOOD ALLERGIES Unknown 01/12/2011 No Inactive Date Active bactrim RxNorm: 748606 03/22/2015 No Inactive Date Active Past Medical [...] Start Date Stop Date Status Fill Instructions Zithromax Z-Surya 250 mg tablet RxNorm: 026707 1 Tablet(s) PO UD 03/24/2018 No Stop Date Active Flonase 50 mcg/actuation nasal spray,suspension RxNorm: 3937460 1 [place] NASAL BID 03/01/2018 No Stop Date Active Cipro 500 mg tablet RxNorm: 019400 1 Tablet(s) PO BID 02/16/2018 02/25/2018 Inactive Diflucan 150 mg tablet RxNorm: 374298 1 Tablet(s) PO daily start after cipro is finished 02/16/2018 02/22/2018 Inactive Augmentin 875 mg-125 mg tablet RxNorm: 026298 1 Tablet(s) PO BID 12/24/2017 12/23/2017 Inactive Augmentin 875 mg-125 mg tablet RxNorm: 081143 1 Tablet(s) PO BID 12/24/2017 12/30/2017 Inactive Keflex 500 mg capsule RxNorm: 027814 1 Capsule(s) PO TID 12/08/2017 12/14/2017 Inactive Yuridia-D 12 Hour 60 mg-120 mg tablet,extended release RxNorm: 609137 1 Tablet(s) PO BID 12/06/2017 No Stop Date Active Keflex 500 mg capsule RxNorm: 096835 1 Capsule(s) PO TID 11/26/2017 12/02/2017 Inactive Flonase 50 mcg/actuation nasal spray,suspension RxNorm: 3179049 1 [place] NASAL BID 11/15/2017 02/28/2018 Inactive Yuridia Allergy 180 mg tablet RxNorm: 546422 1 Tablet(s) PO daily 10/27/2017 10/27/2017 Inactive Zyrtec-D 5 mg-120 mg tablet,extended release RxNorm: 7543495 1 Tablet(s) PO BID as needed 10/20/2017 No Stop Date Active Yuridia Allergy 180 mg tablet RxNorm: 556213 1 Tablet(s) PO daily 09/21/2017 10/20/2017 Inactive Augmentin 500 mg-125 mg tablet RxNorm: 340432 1 Tablet(s) PO TID 07/21/2017 07/30/2017 Inactive Yuridia Allergy 180 mg tablet RxNorm: 147448 1 Tablet(s) PO daily 07/21/2017 08/19/2017 Inactive Zyrtec-D 5 mg-120 mg tablet,extended release RxNorm: 0344744 1 Tablet(s) PO BID as needed 06/15/2017 10/19/2017 Inactive Zyrtec-D 5 mg-120 mg tablet,extended release RxNorm: 0675304 1 Tablet(s) PO BID as needed 05/11/2017 02/21/2018 Inactive prednisone 10 mg tablet RxNorm: 030797 Tablet(s) PO 04/05/2017 12/07/2017 Inactive 6,5,4,3,2,1 Kenalog 40 mg/mL suspension for injection RxNorm: 7254706 1 Milliliter(s) Inj 04/05/2017 04/05/2017 Inactive Flonase 50 mcg/actuation nasal spray,suspension RxNorm: 8541669 1 [place] NASAL BID 04/01/2017 11/14/2017 Inactive Augmentin 875 mg-125 mg tablet RxNorm: 418180 1 Tablet(s) PO BID 03/22/2017 03/28/2017 Inactive prednisone 20 mg tablet RxNorm: 252968 2 Tablet(s) PO daily 03/02/2017 03/06/2017 Inactive prednisone 20 mg tablet RxNorm: 908724 2 Tablet(s) PO daily 03/02/2017 03/01/2017 Inactive Zithromax Z-Surya 250 mg tablet RxNorm: 919039 1 Tablet(s) PO UD 02/24/2017 03/21/2017 Inactive Kenalog 40 mg/mL suspension for injection RxNorm: 2541116 1 Milliliter(s) Inj 02/24/2017 02/24/2017 Inactive Zyrtec-D 5 mg-120 mg tablet,extended release RxNorm: 3629733 1 Tablet(s) PO BID as needed 02/05/2017 05/10/2017 Inactive Zyrtec-D 5 mg-120 mg tablet,extended release RxNorm: 9993778 1 Tablet(s) PO BID as needed 12/01/2016 02/04/2017 Inactive Zyrtec-D 5 mg-120 mg tablet,extended release RxNorm: 6430304 1 Tablet(s) PO BID as needed 11/03/2016 11/30/2016 Inactive Zyrtec-D 5 mg-120 mg tablet,extended release RxNorm: 9687667 1 Tablet(s) PO BID as needed 10/09/2016 11/02/2016 Inactive Kenalog 40 mg/mL suspension for injection RxNorm: 0098054 1 Milliliter(s) Inj 09/16/2016 09/16/2016 Inactive Levaquin 500 mg tablet RxNorm: 646298 1 Tablet(s) PO daily 09/15/2016 09/24/2016 Inactive Levaquin 500 mg tablet RxNorm: 635033 1 Tablet(s) PO daily 09/15/2016 09/14/2016 Inactive prednisone 20 mg tablet RxNorm: 576999 1 Tablet(s) PO BID 09/15/2016 09/19/2016 Inactive amoxicillin 500 mg tablet RxNorm: 360615 1 Tablet(s) PO BID 08/20/2016 08/29/2016 Inactive Augmentin 875 mg-125 mg tablet RxNorm: 997645 1 Tablet(s) PO BID 04/23/2016 04/28/2016 Inactive Zyrtec-D 5 mg-120 mg tablet,extended release RxNorm: 9682744 1 Tablet(s) PO BID as needed 01/31/2016 10/08/2016 Inactive Flonase 50 mcg/actuation nasal spray,suspension RxNorm: 0489807 1 [place] NASAL BID 01/08/2016 01/22/2016 Inactive Flonase 50 mcg/actuation nasal spray,suspension RxNorm: 0813427 1 [place] NASAL BID 01/08/2016 01/07/2016 Inactive 1 spray each nare x 5 days Zithromax Z-Surya 250 mg tablet RxNorm: 859629 Tablet(s) PO 01/08/2016 01/30/2016 Inactive Zyrtec-D 5 mg-120 mg tablet,extended release RxNorm: 9872120 1 Tablet(s) PO BID as needed 01/08/2016 01/30/2016 Inactive Augmentin 875 mg-125 mg tablet RxNorm: 801760 1 Tablet(s) PO BID 10/08/2015 10/17/2015 Inactive Augmentin 875 mg-125 mg tablet RxNorm: 300461 1 Tablet(s) PO BID 10/08/2015 10/07/2015 Inactive prednisone 20 mg tablet RxNorm: 543313 1 Tablet(s) PO BID 08/01/2015 08/05/2015 Inactive prednisone 20 mg tablet RxNorm: 434421 1 Tablet(s) PO BID 08/01/2015 07/31/2015 Inactive Kenalog 40 mg/mL suspension for injection RxNorm: 5878729 Milliliter(s) Inj 07/30/2015 07/30/2015 Inactive Zyrtec-D 5 mg-120 mg tablet,extended release RxNorm: 9631097 1 Tablet(s) PO BID as needed 07/30/2015 01/07/2016 Inactive Augmentin 875 mg-125 mg tablet RxNorm: 951985 1 Tablet(s) PO BID 07/30/2015 08/05/2015 Inactive Kenalog 40 mg/mL suspension for injection RxNorm: 4976504 1 Milliliter(s) Inj 03/22/2015 03/22/2015 Inactive Flonase 50 mcg/actuation Nasal [place] RxNorm: 2650954 1 [place] NASAL 07/12/2012 07/11/2012 Inactive 1 spray each nare x 5 days Flonase 50 mcg/actuation Nasal [place] RxNorm: 0971640 1 [place] NASAL 07/12/2012 07/16/2012 Inactive 1 spray each nare x 5 days cefdinir 300 mg capsule RxNorm: 306998 1 Capsule(s) PO BID 07/12/2012 07/18/2012 Inactive cefdinir 300 mg capsule RxNorm: 495801 1 Capsule(s) PO BID 07/12/2012 07/11/2012 Inactive Tamiflu 75 mg capsule RxNorm: 207490 1 Capsule(s) PO BID 06/20/2012 06/24/2012 Inactive Tamiflu 75 mg capsule RxNorm: 623137 1 Capsule(s) PO BID 06/20/2012 06/19/2012 Inactive Diflucan 150 mg tablet RxNorm: 207830 1 Tablet(s) PO daily 04/21/2012 05/04/2012 Inactive nystatin 100,000 unit/g Topical Cream RxNorm: 810399 1 Application TOP TID 04/13/2012 05/02/2012 Inactive one application to groin tid Diflucan 150 mg tablet RxNorm: 043150 1 Tablet(s) PO daily 04/04/2012 04/06/2012 Inactive nystatin 100,000 unit/g Topical Cream RxNorm: 628281 1 Application TOP TID 04/04/2012 04/03/2012 Inactive one application to groin tid x 10 day nystatin 100,000 unit/g Topical Cream RxNorm: 667282 1 Application TOP TID 04/04/2012 04/12/2012 Inactive one application to groin tid x 10 day Diflucan 150 mg tablet RxNorm: 767465 1 Tablet(s) PO daily 03/23/2012 03/22/2012 Inactive Diflucan 150 mg tablet RxNorm: 170390 1 Tablet(s) PO daily 03/23/2012 03/29/2012 Inactive Rocephin 1 gram Solution for Injection RxNorm: 420368 Inj 03/18/2012 03/18/2012 Inactive Augmentin 500 mg-125 mg tablet RxNorm: 914725 1 Tablet(s) PO TID 03/11/2012 03/10/2012 Inactive Augmentin 500 mg-125 mg tablet RxNorm: 528456 1 Tablet(s) PO TID 03/11/2012 03/17/2012 Inactive Kenalog 40 mg/mL Susp for Injection RxNorm: 8384722 1 Milliliter(s) Inj 07/02/2011 07/02/2011 Inactive Rocephin 500 mg Solution for Injection RxNorm: 336038 1 Milliliter(s) Inj 07/02/2011 07/02/2011 Inactive Bactrim DS 800 mg-160 mg Tab RxNorm: 528871 1 Tablet(s) PO BID 06/30/2011 07/09/2011 Inactive Aspirin For Children 81 mg Chewable Tab RxNorm: 689680 1 Tablet(s) PO daily No Start Date Active multivitamin Oral RxNorm: Oral No Start Date Active omeprazole 40 mg Cap, Delayed Release RxNorm: 447540 1 Capsule(s) PO PRN No Start Date Active Yuridia-D 12 Hour 60 mg-120 mg tablet,extended release RxNorm: 563829 1 Tablet(s) PO BID No Start Date 12/05/2017 Inactive Zithromax 500 mg tablet RxNorm: 723218 2 Tablet(s) PO daily No Start Date 01/30/2016 Inactive Zyrtec-D 5 mg-120 mg 12 hr Tab RxNorm: 1743694 1 Tablet(s) PO daily No Start Date 07/29/2015 Inactive Medication Administered Medication Codes Instructions Start Date Status Kenalog 40 mg/mL suspension for injection RxNorm: 8685087 1Milliliter 04/05/2017 No longer Active Kenalog 40 mg/mL suspension for injection RxNorm: 5667964 1Milliliter 02/24/2017 No longer Active Kenalog 40 mg/mL suspension for injection RxNorm: 6265342 1Milliliter 09/16/2016 No longer Active Kenalog 40 mg/mL suspension for injection RxNorm: 9099577 [place] 07/30/2015 No longer Active Kenalog 40 mg/mL suspension for injection RxNorm: 7436453 1Milliliter 03/22/2015 No longer Active Rocephin 1 gram Solution for Injection RxNorm: 351409 03/18/2012 No longer Active Kenalog 40 mg/mL Susp for Injection RxNorm: 5929589 1[place]il[place] 07/02/2011 No longer Active Rocephin 500 mg Solution for Injection RxNorm: 147244 1Milliliter 07/02/2011 No longer Active Immunizations Vaccine [...] Item Item Code Result Date Comp Metabolic Xrr680 NA 139 mEq/L 03/15/2018 Comp Metabolic Prl731 K 4.2 mEq/L 03/15/2018 Comp Metabolic Wgb145 CL 101 mEq/L 03/15/2018 Comp Metabolic Pyi307 CO2 32.0 mEq/L 03/15/2018 Comp Metabolic Czq988 ANION GAP 10 03/15/2018 Comp Metabolic Chq400 GLUCOSE 94 mg/dL 03/15/2018 Comp Metabolic Xxx227 Creat 0.9 mg/dL 03/15/2018 Comp Metabolic Dup649 eGFR 104 ml/min/1.73m2 03/15/2018 Comp Metabolic Kqg956 BUN 14 mg/dL 03/15/2018 Comp Metabolic Kjl689 B/C Ratio 16.3 Ratio 03/15/2018 Comp Metabolic Jul627 CALCIUM 9.8 mg/dL 03/15/2018 Comp Metabolic Eiy731 ALK PHOS 75 U/L 03/15/2018 Comp Metabolic Mvc593 AST(SGOT) 20 U/L 03/15/2018 Comp Metabolic Ucf445 ALT(SGPT) 30 U/L 03/15/2018 Comp Metabolic Tah549 BILI T 1.2 mg/dL 03/15/2018 Comp Metabolic Xlg793 ALBUMIN 4.7 g/dL 03/15/2018 Comp Metabolic Ffw705 TPRO 7.2 g/dL 03/15/2018 Comp Metabolic Fwg164 GLOB 2.5 g/dL 03/15/2018 Comp Metabolic Oep543 A/G Ratio 1.9 Ratio 03/15/2018 Comp Metabolic Ttj975 Osmo 278 mOsmo 03/15/2018 Urine Culture Ucult [...] if culture needed 01/04/2018 Hepatitis Panel (Abc) 40058 HEPATITIS B SURFACE AG . 12/09/2017 Hepatitis Panel (Abc) 83649 HEPATITIS B SURFACE AG NEGATIVE 12/09/2017 Hepatitis Panel (Abc) 87809 HEPATITIS B CORE AB, IGM . 12/09/2017 Hepatitis Panel (Abc) 86269 HEPATITIS B CORE AB, IGM NEGATIVE 12/09/2017 Hepatitis Panel (Abc) 52466 HEPATITIS A AB, IGM . 12/09/2017 Hepatitis Panel (Abc) 46829 HEPATITIS A AB, IGM NEGATIVE 12/09/2017 Hepatitis Panel (Abc) 41935 HEPATITIS C ANTIBODY . 12/09/2017 Hepatitis Panel (Abc) 62759 HEPATITIS C ANTIBODY NEGATIVE 12/09/2017 Tsh Ord6 TSH (3rd IS) 2.24 uIU/mL 11/29/2017 Comp Metabolic Yoz434 NA 138 mEq/L 11/29/2017 Comp Metabolic Ckn917 K 4.1 mEq/L 11/29/2017 Comp Metabolic Jzt051 CL 101 mEq/L 11/29/2017 Comp Metabolic Phy766 CO2 30.0 mEq/L 11/29/2017 Comp Metabolic Wnf936 ANION GAP 11 11/29/2017 Comp Metabolic Iqm232 GLUCOSE 89 mg/dL 11/29/2017 Comp Metabolic Ejo144 Creat 0.8 mg/dL 11/29/2017 Comp Metabolic Odk573 eGFR 107 ml/min/1.73m2 11/29/2017 Comp Metabolic Qey187 BUN 15 mg/dL 11/29/2017 Comp Metabolic Eak071 B/C Ratio 17.9 Ratio 11/29/2017 Comp Metabolic Iip762 CALCIUM 9.4 mg/dL 11/29/2017 Comp Metabolic Cyv308 ALK PHOS 71 U/L 11/29/2017 Comp Metabolic Bfv323 AST(SGOT) 19 U/L 11/29/2017 Comp Metabolic Cxf430 ALT(SGPT) 27 U/L 11/29/2017 Comp Metabolic Plz727 BILI T 1.8 mg/dL 11/29/2017 Comp Metabolic Dbb601 ALBUMIN 4.4 g/dL 11/29/2017 Comp Metabolic Yap581 TPRO 6.8 g/dL 11/29/2017 Comp Metabolic Jwi125 GLOB 2.5 g/dL 11/29/2017 Comp Metabolic Xeu881 A/G Ratio 1.8 Ratio 11/29/2017 Comp Metabolic Kkr752 Osmo 276 mOsmo 11/29/2017 Urine Culture Ucult [...] 82.7 fl 11/29/2017 Cbc With Differential Ord2 Giles% 8.3 % 11/29/2017 Cbc With Differential Ord2 [...] 3.16 K/ul 11/29/2017 Cbc With Differential Ord2 Giles ABS# 0.7 K/ul 11/29/2017 Cbc With Differential Ord2 Eos ABS# 0.2 K/ul 11/29/2017 Cbc With Differential Ord2 Baso ABS# 0.0 K/ul 11/29/2017 C RAP A SC [id number] Strep A Negative 08/20/2016 GC/CHL PRB 7391051 SOURCE CASSANDRA UNKNOWN 03/19/2012 GC/CHL PRB 3818986 CHLM PROBE NEG 03/19/2012 GC/CHL PRB 1732544 GC PROBE NEG 03/19/2012 URINALYSIS NONAUTO W/O SCOPE 46095 Specific Withams 1.010 DateTime(Free Text in Aprima) URINALYSIS NONAUTO W/O SCOPE 67269 PH 6.5 DateTime(Free Text in Aprima) URINALYSIS NONAUTO W/O SCOPE 56314 GLUCOSE neg DateTime(Free Text in Aprima) URINALYSIS NONAUTO W/O SCOPE 93608 Protein neg DateTime(Free Text in Aprima) URINALYSIS NONAUTO W/O SCOPE 61842 Blood neg DateTime(Free Text in Aprima) URINALYSIS NONAUTO W/O SCOPE 67324 Bilirubin neg DateTime(Free Text in Aprima) URINALYSIS NONAUTO W/O SCOPE 76835 Ketones neg DateTime(Free Text in Aprima) URINALYSIS NONAUTO W/O SCOPE 38685 Urobilinogen neg DateTime(Free Text in Aprima) URINALYSIS NONAUTO W/O SCOPE 19900 Nitrite neg DateTime(Free Text in Aprima) URINALYSIS NONAUTO W/O SCOPE 07963 Leukocytes neg DateTime(Free Text in Aprima) Review [...] time 07/21/2017 None Full Exam - General 1995 Constitutional general appearance Overall: well developed 04/05/2017 [...] CPT-4: J3301 02/24/2017 THER/PROPH/DIAG INJ SC/IM CPT-4: 67220 09/16/2016 TRIAMCINOLONE ACET INJ NOS CPT-4: J3301 09/16/2016 TRIAMCINOLONE ACET INJ NOS CPT-4: J3301 07/30/2015 TRIAMCINOLONE ACET INJ NOS CPT-4: J3301 03/22/2015 ROCEPHIN, PER 250 MG CPT- 4: J0696 03/18/2012 URINALYSIS NONAUTO W/O SCOPE CPT-4: 96373 03/17/2012 ROCEPHIN, PER 250 MG CPT- 4: J0696 06/30/2011 TRIAMCINOLONE ACET INJ NOS CPT-4: J3301 06/30/2011 Vital Signs Date Vital 02/22/2018 Blood Pressure 1: 110/80 Code: 8480-6 Heart Rate 1: 74 bpm Height: 6'2" SpO2: 98% Weight: 02/16/2018 Blood Pressure 1: 130/72 Code: 8480-6 BMI: 24.0 Code: 63713-4 Heart Rate 1: 82 bpm Height: 6'2" SpO2: 97% Weight: 187 lbs 12/20/2017 Blood Pressure 1: 128/88 Code: 8480-6 BMI: 23.1 Code: 50826-5 Heart Rate 1: 86 bpm Height: 6'2" SpO2: 98% Weight: 180 lbs 11/26/2017 Blood Pressure 1: 122/80 Code: 8480-6 BMI: 23.1 Code: 68309-1 Heart Rate 1: 56 bpm Height: 6'2" SpO2: 98% Weight: 180 lbs 07/21/2017 Blood Pressure 1: 120/78 Code: 8480-6 BMI: 21.8 Code: 36297-9 Heart Rate 1: 88 bpm Height: 6'2" SpO2: 97% Weight: 170 lbs 04/05/2017 Blood Pressure 1: 126/68 Code: 8480-6 BMI: 22.6 Code: 68025-1 Heart Rate 1: 80 bpm Height: 6'2" SpO2: 98% Weight: 176 lbs 03/22/2017 Blood Pressure 1: 120/72 Code: 8480-6 BMI: 22.5 Code: 11949-4 Heart Rate 1: 82 bpm Height: 6'2" SpO2: 98% Temperature: 36.8 (C) / 98.3 (F) Weight: 175 lbs 02/24/2017 Blood Pressure 1: 120/62 Code: 8480-6 BMI: 22.5 Code: 02232-7 Heart Rate 1: 84 bpm Height: 6'2" SpO2: 98% Weight: 175 lbs 08/20/2016 Blood Pressure 1: 12678 Code: 8480-6 BMI: 24.1 Code: 58165-9 Heart Rate 1: 84 bpm Height: 6'2" SpO2: 98% Temperature: 37.1 (C) / 98.8 (F) Weight: 188 lbs 06/10/2016 Blood Pressure 1: 124/62 Code: 8480-6 BMI: 24.4 Code: 52025-8 Heart Rate 1: 85 bpm Height: 6'2" SpO2: 98% Weight: 190 lbs 02/07/2016 Blood Pressure 1: 128/72 Code: 8480-6 BMI: 23.6 Code: 63334-0 Heart Rate 1: 78 bpm Height: 6'2" SpO2: 96% Weight: 184 lbs 01/08/2016 Blood Pressure 1: 108/70 Code: 8480-6 BMI: 23.4 Code: 06139-9 Heart Rate 1: 84 bpm Height: 6'2" SpO2: 96% Weight: 182 lbs 07/30/2015 Blood Pressure 1: 110/64 Code: 8480-6 BMI: 22.6 Code: 81587-1 Heart Rate 1: 78 bpm Height: 6'2" SpO2: 98% Weight: 176 lbs 03/22/2015 Blood Pressure 1: 126/80 Code: 8480-6 BMI: 24.0 Code: 50192-3 Heart Rate 1: 76 bpm Height: 6'2" SpO2: 98% Weight: 187 lbs 06/20/2012 Blood Pressure 1: 110/76 Code: 8480-6 Heart Rate 1: 100 bpm Temperature: 38.7 (C) / 101.7 (F) Weight: 169 lbs 03/18/2012 Blood Pressure 1: 132/70 Code: 8480-6 Heart Rate 1: 80 bpm Weight: 160 lbs 06/30/2011 Blood Pressure 1: 110/72 Code: 8480-6 BMI: 23.9 Code: 28616-1 Heart Rate 1: 72 bpm Height: 6'2" Respiratory Rate: 20 bpm Weight: 186 lbs 03/09/2011 Blood Pressure 1: 96/58 Code: 8480-6 BMI: 23.2 Code: 41608- 5 Heart Rate 1: 80 bpm Height: 6'2" Respiratory Rate: 16 bpm Weight: 183 lbs 01/12/2011 Blood Pressure 1: 126/80 Code: 8480-6 BMI: 23.5 Code: 98565-5 Heart Rate 1: 82 bpm Height: 6'2" [...] 04/05/2017 None rash Location-Head/Neck on the left quaker 04/05/2017 None rash Location-Head/Neck on the forehead [...] Directive data Encounters Encounter Performer Location Codes ([id number]) 97044 EST. 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 PATIENT, LEVEL III Diagnosis: Dysuria[ICD10: R30.0] Cherry Riggs MD, [facility] CPT-4: 35440 02/16/2018 ([id number]) 60860 EST. PATIENT, LEVEL III Diagnosis: Pain in left knee[ICD10: M25.562] Gin Riggs MD, [facility] CPT- 4: 78305 12/20/2017 ([id number]) PREV VISIT EST AGE 40-64 Diagnosis: Encounter for general adult medical examination without abnormal findings[ICD10: Z00.00] Diagnosis: Dysuria[ICD10: R30.0] Diagnosis: Other allergic rhinitis[ICD10: J30.89] Gin Riggs MD, [facility] CPT-4: 62763 11/26/2017 [id number] EST. PATIENT, LEVEL IV Diagnosis: Other acute sinusitis[ICD10: J01.80] Diagnosis: Other allergic rhinitis[ICD10: J30.89] Cherry Riggs MD, [facility] CPT- 4: 04312 07/21/2017 [id number] EST. PATIENT, LEVEL IV Diagnosis: Allergic contact dermatitis due to plants, except food[ICD10: L23.7] Cherry Riggs MD, [facility] CPT-4: 04262 04/05/2017 ([id number]) 04157 EST. PATIENT, LEVEL III Diagnosis: Acute recurrent maxillary sinusitis[ICD10: J01.01] Gin Riggs MD, [facility] CPT-4: 29550 03/22/2017 76892 EST. PATIENT, LEVEL IV Diagnosis: Other acute sinusitis[ICD10: J01.80] Diagnosis: Other allergic rhinitis[ICD10: J30.89] Cherry Riggs MD, [facility] CPT- 4: 93239 02/24/2017 ([id number]) 45621 EST. PATIENT, LEVEL III Diagnosis: Acute laryngopharyngitis[ICD10: J06.0] Gin Riggs MD, [facility] CPT-4: 58858 08/20/2016 [id number] EST. PATIENT, LEVEL III Diagnosis: Pain in right shoulder[ICD10: M25.511] Cherry Riggs MD, [facility] CPT- 4: 41388 06/10/2016 ([id number]) 47302 EST. PATIENT, LEVEL II Diagnosis: Melanocytic nevi, unspecified[ICD10: D22.9] Gin Riggs MD, [facility] CPT-4: 92213 02/07/2016 81172 EST. PATIENT, LEVEL III Diagnosis: Other acute sinusitis[ICD10: J01.80] Diagnosis: Other allergic rhinitis[ICD10: J30.89] Cherry Riggs MD, [facility] CPT- 4: 91836 01/08/2016 ([id number]) 71059 EST. PATIENT, LEVEL III Diagnosis: Acute recurrent maxillary sinusitis[ICD10: J01.01] Gin Riggs MD, [facility] CPT-4: 23239 07/30/2015 ([id number]) PREV VISIT EST AGE 18-39 Diagnosis: Encounter for general adult medical examination without abnormal findings[ICD10: Z00.00] Diagnosis: Allergic rhinitis, unspecified[ICD10: J30.9] Gin Riggs MD, [facility] CPT-4: 85249 03/22/2015 ([id number]) 13951 EST. PATIENT, LEVEL III Diagnosis: Influenza[ICD9: 487.1] Gin Riggs MD, [facility] CPT-4: 94382 06/20/2012 [id number] EST. PATIENT, LEVEL II Diagnosis: DYSURIA[ICD9: 788.1] Diagnosis: Screen for sexually transmitted diseases[ICD9: V74.5] Gin Riggs MD, [facility] CPT-4: 67471 03/18/2012 ([id number]) 95794 EST. PATIENT, LEVEL III Diagnosis: ACUTE SINUSITIS[ICD9: 461.9] Gin Riggs MD, [facility] CPT-4: 83476 06/30/2011 [id number] EST. PATIENT, LEVEL IV Diagnosis: ESOPHAGEAL REFLUX[ICD9: 530.81] Diagnosis: Constipation[ICD9: 564.00] Claire Riggs MD, [facility] CPT-4: 81486 03/09/2011 OFFICE VISIT, NEW - LEVEL 3 Diagnosis: Encounter for annual health examination[ICD9: V70.0] Diagnosis: Esophageal reflux[ICD9: 530.81] [facility] CPT-4: 56322 01/12/2011 Plan of Care Planned Activity Notes Codes Status Date Patient Education: Patient Medication Summary Completed 03/15/2018 Visit Plan: Varicocele-grade 3 -discussed with Dr Riggs - start an aspirin daily - discussed anti inflammatories, supportive underwear and to call if symptoms do not resolve or if any worse. Patient verbalized understanding of plan. 02/22/2018 Appointment: Gin Dooley WPtel: [phone] [phone] [place] (15 min) Moderate 02/22/2018 Patient Education: Patient [...] urology 02/16/2018 Appointment: Cherry Wagoner WPtel: [facility] [place] [facility] [place] (15 min) Moderate 02/16/2018 Patient Education: Patient Medication Summary Completed 02/16/2018 Patient Education: Patient Medication Summary Completed 01/03/2018 Visit Plan: Left knee pain -suspect meniscal injury -will xray knee today and then schedule MRI for further evaluation -discussed rest, ice and anti inflammatories as directed 12/20/2017 Appointment: Gin Dooley WPtel: [phone] [phone] [place] (15 min) Moderate 12/20/2017 Patient Education: Patient Medication Summary Completed 12/20/2017 Care Plan: X-RAY EXAM OF KNEE 3 LOINC : 07468-1 Pending 12/20/2017 Visit Plan: Well Adult - [...] improve. 11/26/2017 Appointment: Gin Dooley WPtel: [phone] [phone] (15 min) Moderate 11/26/2017 Patient Education: [...] allergy spray. 07/21/2017 Appointment: Cherry Wagoner WPtel: [phone] [facility] [place] [address] (15 min) Moderate 07/21/2017 Patient Education: Patient Medication Summary Completed 07/21/2017 Visit Plan: Poison Ruthy - pt is to use topical treatments as directed. Pt is cleanse clothing in hot water with soap, and call if symptoms do not improve or if they worsen. 04/05/2017 Appointment: Cherry Wagoner WPtel: [facility] (10 min) Simple 04/05/2017 Patient Education: [...] allergy spray. 03/22/2017 Appointment: Gin Dooley WPtel: [phone] [place] [address] (15 min) Moderate 03/22/2017 Patient Education: Patient [...] allergy spray. 02/24/2017 Appointment: Cherry Wagoner WPtel: [facility] (15 min) Moderate 02/24/2017 Patient Education: [...] for fever/discomfort. 08/20/2016 Appointment: Gin Dooley WPtel: [phone] (10 min) Simple 08/20/2016 Patient [...] evaluation 02/07/2016 Appointment: Gin Dooley WPtel: [facility] [address] (30 min) Complex 02/07/2016 Patient Education: Patient Medication Summary Completed 02/07/2016 Care Plan: Referral Order SNOMED-CT : [id number] Pending 02/07/2016 Visit Plan: Sinusitis - Pt [...] office 03/22/2015 Appointment: Gin Dooley WPtel: [address] [place], [place] [phone] [facility] 03/22/2015 Patient Education: Patient Medication Summary Completed [...] any worse. 06/20/2012 Appointment: Gin Dooley WPtel: [address] [place], [place] [phone] [facility] 06/20/2012 Patient Education: Patient Medication [...] of testing. 03/18/2012 Appointment: Gin Dooley WPtel: [facility] [address] Other 03/18/2012 Patient Education: Patient Medication Summary Completed 03/18/2012 Appointment: Claire Riggs WPtel: [address] [place] [address] Lab Draw 03/17/2012 Patient Education: Patient Medication [...] not resolve. 06/30/2011 Appointment: Gin Dooley WPtel: [address] [address] [place], [place] [id number] [place] [address] Other 06/30/2011 Patient Education: Patient Medication Summary [...] 3:30pm. 03/09/2011 Appointment: Claire Riggs WPtel: [facility] [place] Other 03/09/2011 Patient Education: Patient [...] program. 01/12/2011 Appointment: Claire Riggs WPtel: [facility] [id number] New Patient 01/12/2011 Patient Education: Patient Medication Summary Completed 01/12/2011 Referral: Maranda Cadenaannabel WPtel: Referral Appointment Requested Instructions Comment . [...] worsen. COME WEDNESDAY FOR LABS CHECK [facility] FOR [facility]GIES . Well Adult - pt [...] if symptoms do not show improvement. . Abnormal mole-right ankle-patients concerned-refer to Dr Greene for evaluation
--- OUTSIDE RECORDS SUMMARY | 2018-11-22 07:28 | XMS REPORT | CCD ---
Author Author [facility] Organization [facility] Address [address] [place] [address] Phone Care Team Providers Care Alternative Financing Specialist Name Role Phone Claire Riggs PP Unavailable CCM Unavailable Summary Purpose Interface Exchange Insurance Providers Payer name Policy type / Coverage type Covered republican ID Effective Begin Date Effective End Date [facility] [id number] Unknown Family history Mother Diagnosis Age At Onset Cancer Unknown Brother Diagnosis Age At Onset No Family Disease Entered N/A Grandmother Diagnosis Age At Onset Cancer Unknown Father Diagnosis Age At Onset No Family Disease Entered N/A Social History Social History Element Codes Description Effective Dates Marital status Unknown 01/12/2011 Employment Unknown 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 Unknown Has never used illegal drugs 01/12/2011 Allergies, Adverse Reactions, Alerts Substance Reaction Codes Entered Date Inactivated Date Status * NO KNOWN FOOD ALLERGIES Unknown 01/12/2011 No Inactive Date Active bactrim RxNorm: 276414 03/22/2015 No Inactive Date Active Past Medical [...] Instructions Flonase 50 mcg/actuation nasal spray,suspension RxNorm: 7520186 1 [place] NASAL BID 03/01/2018 No Stop Date Active Cipro 500 mg tablet RxNorm: 904264 1 Tablet(s) PO BID 02/16/2018 02/25/2018 Inactive Diflucan 150 mg tablet RxNorm: 365501 1 Tablet(s) PO daily start after cipro is finished 02/16/2018 02/22/2018 Inactive Augmentin 875 mg-125 mg tablet RxNorm: 673651 1 Tablet(s) PO BID 12/24/2017 12/23/2017 Inactive Augmentin 875 mg-125 mg tablet RxNorm: 536910 1 Tablet(s) PO BID 12/24/2017 12/30/2017 Inactive Keflex 500 mg capsule RxNorm: 881241 1 Capsule(s) PO TID 12/08/2017 12/14/2017 Inactive Yuridia-D 12 Hour 60 mg-120 mg tablet,extended release RxNorm: 575545 1 Tablet(s) PO BID 12/06/2017 No Stop Date Active Keflex 500 mg capsule RxNorm: 888233 1 Capsule(s) PO TID 11/26/2017 12/02/2017 Inactive Flonase 50 mcg/actuation nasal spray,suspension RxNorm: 5646262 1 [place] NASAL BID 11/15/2017 02/28/2018 Inactive Yuridia Allergy 180 mg tablet RxNorm: 313860 1 Tablet(s) PO daily 10/27/2017 10/27/2017 Inactive Zyrtec-D 5 mg-120 mg tablet,extended release RxNorm: 8392034 1 Tablet(s) PO BID as needed 10/20/2017 No Stop Date Active Yuridia Allergy 180 mg tablet RxNorm: 155245 1 Tablet(s) PO daily 09/21/2017 10/20/2017 Inactive Augmentin 500 mg-125 mg tablet RxNorm: 075070 1 Tablet(s) PO TID 07/21/2017 07/30/2017 Inactive Yuridia Allergy 180 mg tablet RxNorm: 264357 1 Tablet(s) PO daily 07/21/2017 08/19/2017 Inactive Zyrtec-D 5 mg-120 mg tablet,extended release RxNorm: 7640544 1 Tablet(s) PO BID as needed 06/15/2017 10/19/2017 Inactive Zyrtec-D 5 mg-120 mg tablet,extended release RxNorm: 0300048 1 Tablet(s) PO BID as needed 05/11/2017 02/21/2018 Inactive prednisone 10 mg tablet RxNorm: 885275 Tablet(s) PO 04/05/2017 12/07/2017 Inactive 6,5,4,3,2,1 Kenalog 40 mg/mL suspension for injection RxNorm: 4191174 1 Milliliter(s) Inj 04/05/2017 04/05/2017 Inactive Flonase 50 mcg/actuation nasal spray,suspension RxNorm: 9625759 1 [place] NASAL BID 04/01/2017 11/14/2017 Inactive Augmentin 875 mg-125 mg tablet RxNorm: 292418 1 Tablet(s) PO BID 03/22/2017 03/28/2017 Inactive prednisone 20 mg tablet RxNorm: 895840 2 Tablet(s) PO daily 03/02/2017 03/06/2017 Inactive prednisone 20 mg tablet RxNorm: 758931 2 Tablet(s) PO daily 03/02/2017 03/01/2017 Inactive Zithromax Z-Surya 250 mg tablet RxNorm: 304888 1 Tablet(s) PO UD 02/24/2017 03/21/2017 Inactive Kenalog 40 mg/mL suspension for injection RxNorm: 9631207 1 Milliliter(s) Inj 02/24/2017 02/24/2017 Inactive Zyrtec-D 5 mg-120 mg tablet,extended release RxNorm: 7338991 1 Tablet(s) PO BID as needed 02/05/2017 05/10/2017 Inactive Zyrtec-D 5 mg-120 mg tablet,extended release RxNorm: 3064453 1 Tablet(s) PO BID as needed 12/01/2016 02/04/2017 Inactive Zyrtec-D 5 mg-120 mg tablet,extended release RxNorm: 4644110 1 Tablet(s) PO BID as needed 11/03/2016 11/30/2016 Inactive Zyrtec-D 5 mg-120 mg tablet,extended release RxNorm: 8321186 1 Tablet(s) PO BID as needed 10/09/2016 11/02/2016 Inactive Kenalog 40 mg/mL suspension for injection RxNorm: 1998295 1 Milliliter(s) Inj 09/16/2016 09/16/2016 Inactive Levaquin 500 mg tablet RxNorm: 241822 1 Tablet(s) PO daily 09/15/2016 09/24/2016 Inactive Levaquin 500 mg tablet RxNorm: 192775 1 Tablet(s) PO daily 09/15/2016 09/14/2016 Inactive prednisone 20 mg tablet RxNorm: 337058 1 Tablet(s) PO BID 09/15/2016 09/19/2016 Inactive amoxicillin 500 mg tablet RxNorm: 834605 1 Tablet(s) PO BID 08/20/2016 08/29/2016 Inactive Augmentin 875 mg-125 mg tablet RxNorm: 708364 1 Tablet(s) PO BID 04/23/2016 04/28/2016 Inactive Zyrtec-D 5 mg-120 mg tablet,extended release RxNorm: 7581076 1 Tablet(s) PO BID as needed 01/31/2016 10/08/2016 Inactive Flonase 50 mcg/actuation nasal spray,suspension RxNorm: 6453816 1 [place] NASAL BID 01/08/2016 01/22/2016 Inactive Flonase 50 mcg/actuation nasal spray,suspension RxNorm: 4865174 1 [place] NASAL BID 01/08/2016 01/07/2016 Inactive 1 spray each nare x 5 days Zithromax Z-Surya 250 mg tablet RxNorm: 504285 Tablet(s) PO 01/08/2016 01/30/2016 Inactive Zyrtec-D 5 mg-120 mg tablet,extended release RxNorm: 9683904 1 Tablet(s) PO BID as needed 01/08/2016 01/30/2016 Inactive Augmentin 875 mg-125 mg tablet RxNorm: 857090 1 Tablet(s) PO BID 10/08/2015 10/17/2015 Inactive Augmentin 875 mg-125 mg tablet RxNorm: 727794 1 Tablet(s) PO BID 10/08/2015 10/07/2015 Inactive prednisone 20 mg tablet RxNorm: 464086 1 Tablet(s) PO BID 08/01/2015 08/05/2015 Inactive prednisone 20 mg tablet RxNorm: 341245 1 Tablet(s) PO BID 08/01/2015 07/31/2015 Inactive Kenalog 40 mg/mL suspension for injection RxNorm: 8589560 Milliliter(s) Inj 07/30/2015 07/30/2015 Inactive Zyrtec-D 5 mg-120 mg tablet,extended release RxNorm: 9039219 1 Tablet(s) PO BID as needed 07/30/2015 01/07/2016 Inactive Augmentin 875 mg-125 mg tablet RxNorm: 613644 1 Tablet(s) PO BID 07/30/2015 08/05/2015 Inactive Kenalog 40 mg/mL suspension for injection RxNorm: 1407638 1 Milliliter(s) Inj 03/22/2015 03/22/2015 Inactive Flonase 50 mcg/actuation Nasal [place] RxNorm: 5972972 1 [place] NASAL 07/12/2012 07/11/2012 Inactive 1 spray each nare x 5 days Flonase 50 mcg/actuation Nasal [place] RxNorm: 1434568 1 [place] NASAL 07/12/2012 07/16/2012 Inactive 1 spray each nare x 5 days cefdinir 300 mg capsule RxNorm: 964428 1 Capsule(s) PO BID 07/12/2012 07/18/2012 Inactive cefdinir 300 mg capsule RxNorm: 770034 1 Capsule(s) PO BID 07/12/2012 07/11/2012 Inactive Tamiflu 75 mg capsule RxNorm: 149449 1 Capsule(s) PO BID 06/20/2012 06/24/2012 Inactive Tamiflu 75 mg capsule RxNorm: 410650 1 Capsule(s) PO BID 06/20/2012 06/19/2012 Inactive Diflucan 150 mg tablet RxNorm: 230288 1 Tablet(s) PO daily 04/21/2012 05/04/2012 Inactive nystatin 100,000 unit/g Topical Cream RxNorm: 895032 1 Application TOP TID 04/13/2012 05/02/2012 Inactive one application to groin tid Diflucan 150 mg tablet RxNorm: 366840 1 Tablet(s) PO daily 04/04/2012 04/06/2012 Inactive nystatin 100,000 unit/g Topical Cream RxNorm: 809782 1 Application TOP TID 04/04/2012 04/03/2012 Inactive one application to groin tid x 10 day nystatin 100,000 unit/g Topical Cream RxNorm: 048343 1 Application TOP TID 04/04/2012 04/12/2012 Inactive one application to groin tid x 10 day Diflucan 150 mg tablet RxNorm: 328475 1 Tablet(s) PO daily 03/23/2012 03/22/2012 Inactive Diflucan 150 mg tablet RxNorm: 638058 1 Tablet(s) PO daily 03/23/2012 03/29/2012 Inactive Rocephin 1 gram Solution for Injection RxNorm: 408737 Inj 03/18/2012 03/18/2012 Inactive Augmentin 500 mg-125 mg tablet RxNorm: 681271 1 Tablet(s) PO TID 03/11/2012 03/10/2012 Inactive Augmentin 500 mg-125 mg tablet RxNorm: 328504 1 Tablet(s) PO TID 03/11/2012 03/17/2012 Inactive Kenalog 40 mg/mL Susp for Injection RxNorm: 9225074 1 Milliliter(s) Inj 07/02/2011 07/02/2011 Inactive Rocephin 500 mg Solution for Injection RxNorm: 285046 1 Milliliter(s) Inj 07/02/2011 07/02/2011 Inactive Bactrim DS 800 mg-160 mg Tab RxNorm: 058611 1 Tablet(s) PO BID 06/30/2011 07/09/2011 Inactive Aspirin For Children 81 mg Chewable Tab RxNorm: 538696 1 Tablet(s) PO daily No Start Date Active multivitamin Oral RxNorm: Oral No Start Date Active omeprazole 40 mg Cap, Delayed Release RxNorm: 852844 1 Capsule(s) PO PRN No Start Date Active Yuridia-D 12 Hour 60 mg-120 mg tablet,extended release RxNorm: 519387 1 Tablet(s) PO BID No Start Date 12/05/2017 Inactive Zithromax 500 mg tablet RxNorm: 8642535 2 Tablet(s) PO daily No Start Date 01/30/2016 Inactive Zyrtec-D 5 mg-120 mg 12 hr Tab RxNorm: 9070788 1 Tablet(s) PO daily No Start Date 07/29/2015 Inactive Medication Administered Medication Codes Instructions Start Date Status Kenalog 40 mg/mL suspension for injection RxNorm: 7158050 1Milliliter 04/05/2017 No longer Active Kenalog 40 mg/mL suspension for injection RxNorm: 0642729 1Milliliter 02/24/2017 No longer Active Kenalog 40 mg/mL suspension for injection RxNorm: 2972647 1Milliliter 09/16/2016 No longer Active Kenalog 40 mg/mL suspension for injection RxNorm: 8246714 Milliliter 07/30/2015 No longer Active Kenalog 40 mg/mL suspension for injection RxNorm: 6044050 1Milliliter 03/22/2015 No longer Active Rocephin 1 gram Solution for Injection RxNorm: 981143 03/18/2012 No longer Active Kenalog 40 mg/mL Susp for Injection RxNorm: 0901618 1Milliliter 07/02/2011 No longer Active Rocephin 500 mg Solution for Injection RxNorm: 053207 1Milliliter 07/02/2011 No longer Active Immunizations Vaccine [...] Item Item Code Result Date Comp Metabolic Wkg087 NA 139 mEq/L 03/15/2018 Comp Metabolic Odu191 K 4.2 mEq/L 03/15/2018 Comp Metabolic Ggk994 CL 101 mEq/L 03/15/2018 Comp Metabolic Zgu332 CO2 32.0 mEq/L 03/15/2018 Comp Metabolic Hnz485 ANION GAP 10 03/15/2018 Comp Metabolic Shs649 GLUCOSE 94 mg/dL 03/15/2018 Comp Metabolic Hge669 Creat 0.9 mg/dL 03/15/2018 Comp Metabolic Ylo841 eGFR 104 ml/min/1.73m2 03/15/2018 Comp Metabolic Sea790 BUN 14 mg/dL 03/15/2018 Comp Metabolic Siq348 B/C Ratio 16.3 Ratio 03/15/2018 Comp Metabolic Ptr373 CALCIUM 9.8 mg/dL 03/15/2018 Comp Metabolic Cym994 ALK PHOS 75 U/L 03/15/2018 Comp Metabolic Jok393 AST(SGOT) 20 U/L 03/15/2018 Comp Metabolic Ium132 ALT(SGPT) 30 U/L 03/15/2018 Comp Metabolic Ljf830 BILI T 1.2 mg/dL 03/15/2018 Comp Metabolic Fma915 ALBUMIN 4.7 g/dL 03/15/2018 Comp Metabolic Rcf413 TPRO 7.2 g/dL 03/15/2018 Comp Metabolic Jip916 GLOB 2.5 g/dL 03/15/2018 Comp Metabolic Nkw529 A/G Ratio 1.9 Ratio 03/15/2018 Comp Metabolic Yzf791 Osmo 278 mOsmo 03/15/2018 Urine Culture Ucult [...] if culture needed 01/04/2018 Hepatitis Panel (Abc) 02152 HEPATITIS B SURFACE AG . 12/09/2017 Hepatitis Panel (Abc) 75515 HEPATITIS B SURFACE AG NEGATIVE 12/09/2017 Hepatitis Panel (Abc) 20828 HEPATITIS B CORE AB, IGM . 12/09/2017 Hepatitis Panel (Abc) 90397 HEPATITIS B CORE AB, IGM NEGATIVE 12/09/2017 Hepatitis Panel (Abc) 44757 HEPATITIS A AB, IGM . 12/09/2017 Hepatitis Panel (Abc) 59096 HEPATITIS A AB, IGM NEGATIVE 12/09/2017 Hepatitis Panel (Abc) 69363 HEPATITIS C ANTIBODY . 12/09/2017 Hepatitis Panel (Abc) 50012 HEPATITIS C ANTIBODY NEGATIVE 12/09/2017 Tsh Ord6 TSH (3rd IS) 2.24 uIU/mL 11/29/2017 Comp Metabolic Lni653 NA 138 mEq/L 11/29/2017 Comp Metabolic Oxo504 K 4.1 mEq/L 11/29/2017 Comp Metabolic Yyg508 CL 101 mEq/L 11/29/2017 Comp Metabolic Juq949 CO2 30.0 mEq/L 11/29/2017 Comp Metabolic Ilo100 ANION GAP 11 11/29/2017 Comp Metabolic Hgb194 GLUCOSE 89 mg/dL 11/29/2017 Comp Metabolic Gnx471 Creat 0.8 mg/dL 11/29/2017 Comp Metabolic Dsd416 eGFR 107 ml/min/1.73m2 11/29/2017 Comp Metabolic Vey473 BUN 15 mg/dL 11/29/2017 Comp Metabolic Yqd273 B/C Ratio 17.9 Ratio 11/29/2017 Comp Metabolic Epf762 CALCIUM 9.4 mg/dL 11/29/2017 Comp Metabolic Sde258 ALK PHOS 71 U/L 11/29/2017 Comp Metabolic Fby121 AST(SGOT) 19 U/L 11/29/2017 Comp Metabolic Gvr877 ALT(SGPT) 27 U/L 11/29/2017 Comp Metabolic Tst516 BILI T 1.8 mg/dL 11/29/2017 Comp Metabolic Jyo786 ALBUMIN 4.4 g/dL 11/29/2017 Comp Metabolic Amz211 TPRO 6.8 g/dL 11/29/2017 Comp Metabolic Iwh297 GLOB 2.5 g/dL 11/29/2017 Comp Metabolic Lhe143 A/G Ratio 1.8 Ratio 11/29/2017 Comp Metabolic Wem220 Osmo 276 mOsmo 11/29/2017 Urine Culture Ucult [...] 82.7 fl 11/29/2017 Cbc With Differential Ord2 [place]% 8.3 % 11/29/2017 Cbc With Differential Ord2 [...] 3.16 K/ul 11/29/2017 Cbc With Differential Ord2 [place] ABS# 0.7 K/ul 11/29/2017 Cbc With Differential Ord2 Eos ABS# 0.2 K/ul 11/29/2017 Cbc With Differential Ord2 Baso ABS# 0.0 K/ul 11/29/2017 C RAP A SC [id number] Strep A Negative 08/20/2016 GC/CHL PRB 9373621 SOURCE CASSANDRA UNKNOWN 03/19/2012 GC/CHL PRB [id number] CHLM PROBE NEG 03/19/2012 GC/CHL PRB 5649343 GC PROBE NEG 03/19/2012 URINALYSIS NONAUTO W/O SCOPE 30472 Specific [place] 1.010 DateTime(Free Text in Aprima) URINALYSIS NONAUTO W/O SCOPE 75299 PH 6.5 DateTime(Free Text in Aprima) URINALYSIS NONAUTO W/O SCOPE 54269 GLUCOSE neg DateTime(Free Text in Aprima) URINALYSIS NONAUTO W/O SCOPE 79268 Protein neg DateTime(Free Text in Aprima) URINALYSIS NONAUTO W/O SCOPE 28779 Blood neg DateTime(Free Text in Aprima) URINALYSIS NONAUTO W/O SCOPE 68510 Bilirubin neg DateTime(Free Text in Aprima) URINALYSIS NONAUTO W/O SCOPE 78417 Ketones neg DateTime(Free Text in Aprima) URINALYSIS NONAUTO W/O SCOPE 71547 Urobilinogen neg DateTime(Free Text in Aprima) URINALYSIS NONAUTO W/O SCOPE 20630 Nitrite neg DateTime(Free Text in Aprima) URINALYSIS NONAUTO W/O SCOPE 75938 Leukocytes neg DateTime(Free Text in Aprima) Review [...] masses 03/09/2011 None Full Exam - General 1995 Ears/Nose/Throat [...] CPT-4: J3301 02/24/2017 THER/PROPH/DIAG INJ SC/IM CPT-4: 67456 09/16/2016 TRIAMCINOLONE ACET INJ NOS CPT-4: J3301 09/16/2016 TRIAMCINOLONE ACET INJ NOS CPT-4: J3301 07/30/2015 TRIAMCINOLONE ACET INJ NOS CPT-4: J3301 03/22/2015 ROCEPHIN, PER 250 MG CPT- 4: J0696 03/18/2012 URINALYSIS NONAUTO W/O SCOPE CPT-4: 42161 03/17/2012 ROCEPHIN, PER 250 MG CPT- 4: J0696 06/30/2011 TRIAMCINOLONE ACET INJ NOS CPT-4: J3301 06/30/2011 Vital Signs Date Vital 02/22/2018 Blood Pressure 1: 110/80 Code: 8480-6 Heart Rate 1: 74 bpm Height: 6'2" SpO2: 98% Weight: 02/16/2018 Blood Pressure 1: 130/72 Code: 8480-6 BMI: 24.0 Code: 83931-3 Heart Rate 1: 82 bpm Height: 6'2" SpO2: 97% Weight: 187 lbs 12/20/2017 Blood Pressure 1: 128/88 Code: 8480-6 BMI: 23.1 Code: 25239-1 Heart Rate 1: 86 bpm Height: 6'2" SpO2: 98% Weight: 180 lbs 11/26/2017 Blood Pressure 1: 122/80 Code: 8480-6 BMI: 23.1 Code: 64851-1 Heart Rate 1: 56 bpm Height: 6'2" SpO2: 98% Weight: 180 lbs 07/21/2017 Blood Pressure 1: 120/78 Code: 8480-6 BMI: 21.8 Code: 73766-3 Heart Rate 1: 88 bpm Height: 6'2" SpO2: 97% Weight: 170 lbs 04/05/2017 Blood Pressure 1: 126/68 Code: 8480-6 BMI: 22.6 Code: 27793-6 Heart Rate 1: 80 bpm Height: 6'2" SpO2: 98% Weight: 176 lbs 03/22/2017 Blood Pressure 1: 120/72 Code: 8480-6 BMI: 22.5 Code: 79806-8 Heart Rate 1: 82 bpm Height: 6'2" SpO2: 98% Temperature: 36.8 (C) / 98.3 (F) Weight: 175 lbs 02/24/2017 Blood Pressure 1: 120/62 Code: 8480-6 BMI: 22.5 Code: 30962-3 Heart Rate 1: 84 bpm Height: 6'2" SpO2: 98% Weight: 175 lbs 08/20/2016 Blood Pressure 1: 126/78 Code: 8480-6 BMI: 24.1 Code: 13848-5 Heart Rate 1: 84 bpm Height: 6'2" SpO2: 98% Temperature: 37.1 (C) / 98.8 (F) Weight: 188 lbs 06/10/2016 Blood Pressure 1: 124/62 Code: 8480-6 BMI: 24.4 Code: 16323-0 Heart Rate 1: 85 bpm Height: 6'2" SpO2: 98% Weight: 190 lbs 02/07/2016 Blood Pressure 1: 128/72 Code: 8480-6 BMI: 23.6 Code: 45390-8 Heart Rate 1: 78 bpm Height: 6'2" SpO2: 96% Weight: 184 lbs 01/08/2016 Blood Pressure 1: 108/70 Code: 8480-6 BMI: 23.4 Code: 98038-6 Heart Rate 1: 84 bpm Height: 6'2" SpO2: 96% Weight: 182 lbs 07/30/2015 Blood Pressure 1: 110/64 Code: 8480-6 BMI: 22.6 Code: 73251-4 Heart Rate 1: 78 bpm Height: 6'2" SpO2: 98% Weight: 176 lbs 03/22/2015 Blood Pressure 1: 126/80 Code: 8480-6 BMI: 24.0 Code: 50513-8 Heart Rate 1: 76 bpm Height: 6'2" SpO2: 98% Weight: 187 lbs 06/20/2012 Blood Pressure 1: 110/76 Code: 8480-6 Heart Rate 1: 100 bpm Temperature: 38.7 (C) / 101.7 (F) Weight: 169 lbs 03/18/2012 Blood Pressure 1: 132/70 Code: 8480-6 Heart Rate 1: 80 bpm Weight: 160 lbs 06/30/2011 Blood Pressure 1: 110/72 Code: 8480-6 BMI: 23.9 Code: 37665-3 Heart Rate 1: 72 bpm Height: 6'2" Respiratory Rate: 20 bpm Weight: 186 lbs 03/09/2011 Blood Pressure 1: 96/58 Code: 8480-6 BMI: 23.2 Code: 39467- 5 Heart Rate 1: 80 bpm Height: 6'2" Respiratory Rate: 16 bpm Weight: 183 lbs 01/12/2011 Blood Pressure 1: 126/80 Code: 8480-6 BMI: 23.5 Code: 51557-8 Heart Rate 1: 82 bpm Height: 6'2" [...] 04/05/2017 None rash Location-Head/Neck on the left spiritism 04/05/2017 None rash Location-Head/Neck on the forehead [...] data Encounters Encounter Performer Location Codes Date ([id number]) 35722 EST. 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 PATIENT, LEVEL III Diagnosis: Dysuria[ICD10: R30.0] Cherry Riggs MD, [facility] CPT-4: 21410 02/16/2018 ([id number]) 76097 EST. PATIENT, LEVEL III Diagnosis: Pain in left knee[ICD10: M25.562] Gin Riggs MD, [facility] CPT- 4: 16389 12/20/2017 ([id number]) PREV VISIT EST AGE 40-64 Diagnosis: Encounter for general adult medical examination without abnormal findings[ICD10: Z00.00] Diagnosis: Dysuria[ICD10: R30.0] Diagnosis: Other allergic rhinitis[ICD10: J30.89] Gin Riggs MD, [facility] CPT-4: 14878 11/26/2017 59975 EST. PATIENT, LEVEL IV Diagnosis: Other acute sinusitis[ICD10: J01.80] Diagnosis: Other allergic rhinitis[ICD10: J30.89] Cherry Riggs MD, [facility] CPT- 4: 54457 07/21/2017 90648 EST. PATIENT, LEVEL IV Diagnosis: Allergic contact dermatitis due to plants, except food[ICD10: L23.7] Cherry Riggs MD, [facility] CPT-4: 31946 04/05/2017 ([id number]) 85437 EST. PATIENT, LEVEL III Diagnosis: Acute recurrent maxillary sinusitis[ICD10: J01.01] Gin Riggs MD, [facility] CPT-4: 11344 03/22/2017 68370 EST. PATIENT, LEVEL IV Diagnosis: Other acute sinusitis[ICD10: J01.80] Diagnosis: Other allergic rhinitis[ICD10: J30.89] Cherry Riggs MD, [facility] CPT- 4: 27869 02/24/2017 ([id number]) 83886 EST. PATIENT, LEVEL III Diagnosis: Acute laryngopharyngitis[ICD10: J06.0] Gin Riggs MD, [facility] CPT-4: 25808 08/20/2016 04258 EST. PATIENT, LEVEL III Diagnosis: Pain in right shoulder[ICD10: M25.511] Cherry Riggs MD, [facility] CPT- 4: 79683 06/10/2016 ([id number]) 32522 EST. PATIENT, LEVEL II Diagnosis: Melanocytic nevi, unspecified[ICD10: D22.9] Gin Riggs MD, [facility] CPT-4: 88448 02/07/2016 37463 EST. PATIENT, LEVEL III Diagnosis: Other acute sinusitis[ICD10: J01.80] Diagnosis: Other allergic rhinitis[ICD10: J30.89] Cherry Riggs MD, [facility] CPT- 4: 66250 01/08/2016 ([id number]) 28517 EST. PATIENT, LEVEL III Diagnosis: Acute recurrent maxillary sinusitis[ICD10: J01.01] Gin Riggs MD, [facility] CPT-4: 29957 07/30/2015 ([id number]) PREV VISIT EST AGE 18-39 Diagnosis: Encounter for general adult medical examination without abnormal findings[ICD10: Z00.00] Diagnosis: Allergic rhinitis, unspecified[ICD10: J30.9] Gin Riggs MD, [facility] CPT-4: 97019 03/22/2015 ([id number]) 08066 EST. PATIENT, LEVEL III Diagnosis: Influenza[ICD9: 487.1] Gin Riggs MD, [facility] CPT-4: 24989 06/20/2012 92198 EST. PATIENT, LEVEL II Diagnosis: DYSURIA[ICD9: 788.1] Diagnosis: Screen for sexually transmitted diseases[ICD9: V74.5] Gin Riggs MD, [facility] CPT-4: 33223 03/18/2012 ([id number]) 79602 EST. PATIENT, LEVEL III Diagnosis: ACUTE SINUSITIS[ICD9: 461.9] Gin Riggs MD, [facility] CPT-4: 01667 06/30/2011 76418 EST. PATIENT, LEVEL IV Diagnosis: ESOPHAGEAL REFLUX[ICD9: 530.81] Diagnosis: Constipation[ICD9: 564.00] Claire Riggs MD, [facility] CPT-4: 03974 03/09/2011 OFFICE VISIT, NEW - LEVEL 3 Diagnosis: Encounter for annual health examination[ICD9: V70.0] Diagnosis: Esophageal reflux[ICD9: 530.81] [facility] CPT-4: 05995 01/12/2011 Plan of Care Planned Activity Notes Codes Status Date Patient Education: Patient Medication Summary Completed 03/15/2018 Visit Plan: Varicocele-grade 3 -discussed with Dr Riggs - start an aspirin daily - discussed anti inflammatories, supportive underwear and to call if symptoms do not resolve or if any worse. Patient verbalized understanding of plan. 02/22/2018 Appointment: Gin Dooley WPtel: [phone] (15 min) Moderate 02/22/2018 Patient Education: Patient [...] to urology 02/16/2018 Appointment: Cherry Wagoner WPtel: [phone] (15 min) Moderate 02/16/2018 Patient Education: Patient Medication Summary Completed 02/16/2018 Patient Education: Patient Medication Summary Completed 01/03/2018 Visit Plan: Left knee pain -suspect meniscal injury -will xray knee today and then schedule MRI for further evaluation -discussed rest, ice and anti inflammatories as directed 12/20/2017 Appointment: Gin Dooley WPtel: [phone] [place] (15 min) Moderate 12/20/2017 Patient Education: Patient Medication Summary Completed 12/20/2017 Care Plan: X-RAY EXAM OF KNEE 3 LOINC : 90063-8 Pending 12/20/2017 Visit Plan: Well Adult - [...] not improve. 11/26/2017 Appointment: Gin Dooley WPtel: [facility] [place] [phone] (15 min) Moderate 11/26/2017 Patient Education: Patient [...] allergy spray. 07/21/2017 Appointment: Cherry Wagoner WPtel: [facility] [place] [phone] [place] (15 min) Moderate 07/21/2017 Patient Education: Patient Medication Summary Completed 07/21/2017 Visit Plan: Poison Rut[place] - pt is to use topical treatments as directed. Pt is cleanse clothing in hot water with soap, and call if symptoms do not improve or if they worsen. 04/05/2017 Appointment: Cherry Wagoner WPtel: [phone] [place] (10 min) Simple 04/05/2017 Patient Education: [...] spray. 03/22/2017 Appointment: Gin Dooley WPtel: [phone] [phone] [place] (15 min) Moderate 03/22/2017 Patient Education: [...] allergy spray. 02/24/2017 Appointment: Cherry Wagoner WPtel: [facility] [place] (15 min) Moderate 02/24/2017 Patient Education: [...] for fever/discomfort. 08/20/2016 Appointment: Gin Dooley WPtel: [phone] (10 min) Simple 08/20/2016 Patient Education: Patient [...] evaluation 02/07/2016 Appointment: Gin Dooley WPtel: [phone] [phone] (30 min) Complex 02/07/2016 Patient Education: Patient Medication Summary Completed 02/07/2016 Care Plan: Referral Order SNOMED-CT : [id number] Pending 02/07/2016 Visit Plan: Sinusitis - Pt [...] the office 03/22/2015 Appointment: Gin Dooley WPtel: [phone] [facility] 03/22/2015 Patient Education: Patient Medication Summary [...] any worse. 06/20/2012 [phone] [facility] 06/20/2012 Patient Education: Patient Medication Summary [...] of testing. 03/18/2012 Appointment: Gin Dooley WPtel: [facility] [place] [phone] [place] [address] Other 03/18/2012 Patient Education: Patient Medication Summary Completed 03/18/2012 Appointment: Claire Riggs WPtel: [facility] [address] Lab Draw 03/17/2012 Patient Education: Patient [...] not resolve. 06/30/2011 Appointment: Gin Dooley WPtel: [facility] [place] [address] Other 06/30/2011 Patient Education: Patient Medication Summary [...] at 3:30pm. 03/09/2011 Appointment: Claire Riggs WPtel: [facility] [id number] Other 03/09/2011 Patient Education: Patient Medication Summary [...] program. 01/12/2011 Appointment: Claire Riggs WPtel[facility] [id number] [id number] New Patient 01/12/2011 Patient Education: Patient Medication Summary Completed 01/12/2011 Referral: Maranda Jc WPtel: Referral Appointment Requested Instructions Comment . Varicocele-grade 3 -discussed with Dr Riggs [...] for an antibiotic nasal spray compound that [facility] pharmacy makes . Sinusitis - [...]
--- OUTSIDE RECORDS SUMMARY | 2018-11-22 07:30 | XMS REPORT | CCD ---
Author Author [facility] Organization [facility] Address [address] [place] [address] Phone Care Team Providers Care Vice President Of Academic Affairs Name Role Phone Claire Riggs PP Unavailable CCM Unavailable Summary Purpose Interface Exchange Insurance Providers Payer name Policy type / Coverage type Covered libertarian ID Effective Begin Date Effective End Date [place] [facility] [id number] Unknown Family history Mother Diagnosis Age At Onset Cancer Unknown Brother Diagnosis Age At Onset No Family Disease Entered N/A Grandmother Diagnosis Age At Onset Cancer Unknown Father Diagnosis Age At Onset No Family Disease Entered N/A Social History Social History Element Codes Description Effective Dates Marital status Unknown 01/12/2011 Employment Unknown 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 Unknown Has never used illegal drugs 01/12/2011 Allergies, Adverse Reactions, Alerts Substance Reaction Codes Entered Date Inactivated Date Status * NO KNOWN FOOD ALLERGIES Unknown 01/12/2011 No Inactive Date Active bactrim RxNorm: 419698 03/22/2015 No Inactive Date Active Past Medical [...] Instructions Flonase 50 mcg/actuation nasal spray,suspension RxNorm: 7556807 1 [place] NASAL BID 03/01/2018 No Stop Date Active Cipro 500 mg tablet RxNorm: 458594 1 Tablet(s) PO BID 02/16/2018 02/25/2018 Inactive Diflucan 150 mg tablet RxNorm: 151299 1 Tablet(s) PO daily start after cipro is finished 02/16/2018 02/22/2018 Inactive Augmentin 875 mg-125 mg tablet RxNorm: 209350 1 Tablet(s) PO BID 12/24/2017 12/23/2017 Inactive Augmentin 875 mg-125 mg tablet RxNorm: 506642 1 Tablet(s) PO BID 12/24/2017 12/30/2017 Inactive Keflex 500 mg capsule RxNorm: 911131 1 Capsule(s) PO TID 12/08/2017 12/14/2017 Inactive Yuridia-D 12 Hour 60 mg-120 mg tablet,extended release RxNorm: 199097 1 Tablet(s) PO BID 12/06/2017 No Stop Date Active Keflex 500 mg capsule RxNorm: 389078 1 Capsule(s) PO TID 11/26/2017 12/02/2017 Inactive Flonase 50 mcg/actuation nasal spray,suspension RxNorm: 0532911 1 [place] NASAL BID 11/15/2017 02/28/2018 Inactive Yuridia Allergy 180 mg tablet RxNorm: 518566 1 Tablet(s) PO daily 10/27/2017 10/27/2017 Inactive Zyrtec-D 5 mg-120 mg tablet,extended release RxNorm: 4680540 1 Tablet(s) PO BID as needed 10/20/2017 No Stop Date Active Yuridia Allergy 180 mg tablet RxNorm: 402767 1 Tablet(s) PO daily 09/21/2017 10/20/2017 Inactive Augmentin 500 mg-125 mg tablet RxNorm: 494060 1 Tablet(s) PO TID 07/21/2017 07/30/2017 Inactive Yuridia Allergy 180 mg tablet RxNorm: 542303 1 Tablet(s) PO daily 07/21/2017 08/19/2017 Inactive Zyrtec-D 5 mg-120 mg tablet,extended release RxNorm: 4103903 1 Tablet(s) PO BID as needed 06/15/2017 10/19/2017 Inactive Zyrtec-D 5 mg-120 mg tablet,extended release RxNorm: 6289631 1 Tablet(s) PO BID as needed 05/11/2017 02/21/2018 Inactive prednisone 10 mg tablet RxNorm: 507327 Tablet(s) PO 04/05/2017 12/07/2017 Inactive 6,5,4,3,2,1 Kenalog 40 mg/mL suspension for injection RxNorm: 7289369 1 Milliliter(s) Inj 04/05/2017 04/05/2017 Inactive Flonase 50 mcg/actuation nasal spray,suspension RxNorm: 8964253 1 [place] NASAL BID 04/01/2017 11/14/2017 Inactive Augmentin 875 mg-125 mg tablet RxNorm: 280538 1 Tablet(s) PO BID 03/22/2017 03/28/2017 Inactive prednisone 20 mg tablet RxNorm: 536408 2 Tablet(s) PO daily 03/02/2017 03/06/2017 Inactive prednisone 20 mg tablet RxNorm: 449025 2 Tablet(s) PO daily 03/02/2017 03/01/2017 Inactive Zithromax Z-Surya 250 mg tablet RxNorm: 769061 1 Tablet(s) PO UD 02/24/2017 03/21/2017 Inactive Kenalog 40 mg/mL suspension for injection RxNorm: 7092893 1 Milliliter(s) Inj 02/24/2017 02/24/2017 Inactive Zyrtec-D 5 mg-120 mg tablet,extended release RxNorm: 2777555 1 Tablet(s) PO BID as needed 02/05/2017 05/10/2017 Inactive Zyrtec-D 5 mg-120 mg tablet,extended release RxNorm: 5989334 1 Tablet(s) PO BID as needed 12/01/2016 02/04/2017 Inactive Zyrtec-D 5 mg-120 mg tablet,extended release RxNorm: 6745347 1 Tablet(s) PO BID as needed 11/03/2016 11/30/2016 Inactive Zyrtec-D 5 mg-120 mg tablet,extended release RxNorm: 9678428 1 Tablet(s) PO BID as needed 10/09/2016 11/02/2016 Inactive Kenalog 40 mg/mL suspension for injection RxNorm: 7222319 1 Milliliter(s) Inj 09/16/2016 09/16/2016 Inactive Levaquin 500 mg tablet RxNorm: 887804 1 Tablet(s) PO daily 09/15/2016 09/24/2016 Inactive Levaquin 500 mg tablet RxNorm: 674687 1 Tablet(s) PO daily 09/15/2016 09/14/2016 Inactive prednisone 20 mg tablet RxNorm: 901209 1 Tablet(s) PO BID 09/15/2016 09/19/2016 Inactive amoxicillin 500 mg tablet RxNorm: 755670 1 Tablet(s) PO BID 08/20/2016 08/29/2016 Inactive Augmentin 875 mg-125 mg tablet RxNorm: 842024 1 Tablet(s) PO BID 04/23/2016 04/28/2016 Inactive Zyrtec-D 5 mg-120 mg tablet,extended release RxNorm: 3465053 1 Tablet(s) PO BID as needed 01/31/2016 10/08/2016 Inactive Flonase 50 mcg/actuation nasal spray,suspension RxNorm: 6727091 1 [place] NASAL BID 01/08/2016 01/22/2016 Inactive Flonase 50 mcg/actuation nasal spray,suspension RxNorm: 0596558 1 [place] NASAL BID 01/08/2016 01/07/2016 Inactive 1 spray each nare x 5 days Zithromax Z-Surya 250 mg tablet RxNorm: 943430 Tablet(s) PO 01/08/2016 01/30/2016 Inactive Zyrtec-D 5 mg-120 mg tablet,extended release RxNorm: 1283850 1 Tablet(s) PO BID as needed 01/08/2016 01/30/2016 Inactive Augmentin 875 mg-125 mg tablet RxNorm: 165223 1 Tablet(s) PO BID 10/08/2015 10/17/2015 Inactive Augmentin 875 mg-125 mg tablet RxNorm: 170840 1 Tablet(s) PO BID 10/08/2015 10/07/2015 Inactive prednisone 20 mg tablet RxNorm: 734742 1 Tablet(s) PO BID 08/01/2015 08/05/2015 Inactive prednisone 20 mg tablet RxNorm: 606956 1 Tablet(s) PO BID 08/01/2015 07/31/2015 Inactive Kenalog 40 mg/mL suspension for injection RxNorm: 5656636 Milliliter(s) Inj 07/30/2015 07/30/2015 Inactive Zyrtec-D 5 mg-120 mg tablet,extended release RxNorm: 7898760 1 Tablet(s) PO BID as needed 07/30/2015 01/07/2016 Inactive Augmentin 875 mg-125 mg tablet RxNorm: 630743 1 Tablet(s) PO BID 07/30/2015 08/05/2015 Inactive Kenalog 40 mg/mL suspension for injection RxNorm: 7001613 1 Milliliter(s) Inj 03/22/2015 03/22/2015 Inactive Flonase 50 mcg/actuation Nasal [place] RxNorm: 3611135 1 [place] NASAL 07/12/2012 07/11/2012 Inactive 1 spray each nare x 5 days Flonase 50 mcg/actuation Nasal [place] RxNorm: 9537362 1 [place] NASAL 07/12/2012 07/16/2012 Inactive 1 spray each nare x 5 days cefdinir 300 mg capsule RxNorm: 676926 1 Capsule(s) PO BID 07/12/2012 07/18/2012 Inactive cefdinir 300 mg capsule RxNorm: 719335 1 Capsule(s) PO BID 07/12/2012 07/11/2012 Inactive Tamiflu 75 mg capsule RxNorm: 574674 1 Capsule(s) PO BID 06/20/2012 06/24/2012 Inactive Tamiflu 75 mg capsule RxNorm: 760380 1 Capsule(s) PO BID 06/20/2012 06/19/2012 Inactive Diflucan 150 mg tablet RxNorm: 534404 1 Tablet(s) PO daily 04/21/2012 05/04/2012 Inactive nystatin 100,000 unit/g Topical Cream RxNorm: 547221 1 Application TOP TID 04/13/2012 05/02/2012 Inactive one application to groin tid Diflucan 150 mg tablet RxNorm: 428695 1 Tablet(s) PO daily 04/04/2012 04/06/2012 Inactive nystatin 100,000 unit/g Topical Cream RxNorm: 641894 1 Application TOP TID 04/04/2012 04/03/2012 Inactive one application to groin tid x 10 day nystatin 100,000 unit/g Topical Cream RxNorm: 350598 1 Application TOP TID 04/04/2012 04/12/2012 Inactive one application to groin tid x 10 day Diflucan 150 mg tablet RxNorm: 956972 1 Tablet(s) PO daily 03/23/2012 03/22/2012 Inactive Diflucan 150 mg tablet RxNorm: 565503 1 Tablet(s) PO daily 03/23/2012 03/29/2012 Inactive Rocephin 1 gram Solution for Injection RxNorm: 980043 Inj 03/18/2012 03/18/2012 Inactive Augmentin 500 mg-125 mg tablet RxNorm: 830897 1 Tablet(s) PO TID 03/11/2012 03/10/2012 Inactive Augmentin 500 mg-125 mg tablet RxNorm: 130115 1 Tablet(s) PO TID 03/11/2012 03/17/2012 Inactive Kenalog 40 mg/mL Susp for Injection RxNorm: 7833162 1 Milliliter(s) Inj 07/02/2011 07/02/2011 Inactive Rocephin 500 mg Solution for Injection RxNorm: 751056 1 Milliliter(s) Inj 07/02/2011 07/02/2011 Inactive Bactrim DS 800 mg-160 mg Tab RxNorm: 654751 1 Tablet(s) PO BID 06/30/2011 07/09/2011 Inactive Aspirin For Children 81 mg Chewable Tab RxNorm: 097215 1 Tablet(s) PO daily No Start Date Active multivitamin Oral RxNorm: Oral No Start Date Active omeprazole 40 mg Cap, Delayed Release RxNorm: 694366 1 Capsule(s) PO PRN No Start Date Active Yuridia-D 12 Hour 60 mg-120 mg tablet,extended release RxNorm: 689707 1 Tablet(s) PO BID No Start Date 12/05/2017 Inactive Zithromax 500 mg tablet RxNorm: 1132389 2 Tablet(s) PO daily No Start Date 01/30/2016 Inactive Zyrtec-D 5 mg-120 mg 12 hr Tab RxNorm: 3159350 1 Tablet(s) PO daily No Start Date 07/29/2015 Inactive Medication Administered Medication Codes Instructions Start Date Status Kenalog 40 mg/mL suspension for injection RxNorm: 7100115 1Milliliter 04/05/2017 No longer Active Kenalog 40 mg/mL suspension for injection RxNorm: 1262359 1Milliliter 02/24/2017 No longer Active Kenalog 40 mg/mL suspension for injection RxNorm: 8650231 1Milliliter 09/16/2016 No longer Active Kenalog 40 mg/mL suspension for injection RxNorm: 9960543 Mill[place] 07/30/2015 No longer Active Kenalog 40 mg/mL suspension for injection RxNorm: 2687278 1Milliliter 03/22/2015 No longer Active Rocephin 1 gram Solution for Injection RxNorm: 386681 03/18/2012 No longer Active Rocephin 500 mg Solution for Injection RxNorm: 480675 1Milliliter 07/02/2011 No longer Active Kenalog 40 mg/mL Susp for Injection RxNorm: 9139260 1Milliliter 07/02/2011 No longer Active Immunizations Vaccine [...] Observation Code Item Item Code Result Date Urine Culture Ucult Complete NO Growth Day [...] Ord28 U-Yeast NEGATIVE 01/04/2018 Hepatitis Panel (Abc) 47816 HEPATITIS B SURFACE AG . 12/09/2017 Hepatitis Panel (Abc) 75393 HEPATITIS B SURFACE AG NEGATIVE 12/09/2017 Hepatitis Panel (Abc) 82992 HEPATITIS B CORE AB, IGM . 12/09/2017 Hepatitis Panel (Abc) 54630 HEPATITIS B CORE AB, IGM NEGATIVE 12/09/2017 Hepatitis Panel (Abc) 96243 HEPATITIS A AB, IGM . 12/09/2017 Hepatitis Panel (Abc) 66723 HEPATITIS A AB, IGM NEGATIVE 12/09/2017 Hepatitis Panel (Abc) 30257 HEPATITIS C ANTIBODY . 12/09/2017 Hepatitis Panel (Abc) 63527 HEPATITIS C ANTIBODY NEGATIVE 12/09/2017 Tsh Ord6 TSH (3rd IS) 2.24 uIU/mL 11/29/2017 Comp Metabolic Fgj532 NA 138 mEq/L 11/29/2017 Comp Metabolic Otc757 K 4.1 mEq/L 11/29/2017 Comp Metabolic Knz415 CL 101 mEq/L 11/29/2017 Comp Metabolic Gtu609 CO2 30.0 mEq/L 11/29/2017 Comp Metabolic Jsm598 ANION GAP 11 11/29/2017 Comp Metabolic Kiv754 GLUCOSE 89 mg/dL 11/29/2017 Comp Metabolic Xwb678 Creat 0.8 mg/dL 11/29/2017 Comp Metabolic Qao170 eGFR 107 ml/min/1.73m2 11/29/2017 Comp Metabolic Ifk695 BUN 15 mg/dL 11/29/2017 Comp Metabolic Bif800 B/C Ratio 17.9 Ratio 11/29/2017 Comp Metabolic Nae178 CALCIUM 9.4 mg/dL 11/29/2017 Comp Metabolic Nej730 ALK PHOS 71 U/L 11/29/2017 Comp Metabolic Hoa057 AST(SGOT) 19 U/L 11/29/2017 Comp Metabolic Dwi417 ALT(SGPT) 27 U/L 11/29/2017 Comp Metabolic Evu472 BILI T 1.8 mg/dL 11/29/2017 Comp Metabolic Wgy913 ALBUMIN 4.4 g/dL 11/29/2017 Comp Metabolic Esj292 TPRO 6.8 g/dL 11/29/2017 Comp Metabolic Mgc922 GLOB 2.5 g/dL 11/29/2017 Comp Metabolic Ync252 A/G Ratio 1.8 Ratio 11/29/2017 Comp Metabolic Flv624 Osmo 276 mOsmo 11/29/2017 Urine Culture Ucult [...] 44.4 % 11/29/2017 Cbc With Differential Ord2 MCV 82.7 fl 11/29/2017 Cbc With Differential Ord2 Lymph% 37.3 % 11/29/2017 Cbc With Differential Ord2 [place]% 8.3 % 11/29/2017 Cbc With Differential Ord2 MCH 27.4 pg 11/29/2017 Cbc With Differential Ord2 MCHC 33.1 pg 11/29/2017 Cbc With Differential Ord2 Eos% 1.8 % 11/29/2017 Cbc With Differential Ord2 Baso% 0.1 % 11/29/2017 Cbc With Differential Ord2 PLT 280 K/ul 11/29/2017 Cbc With Differential Ord2 RDW 13.5 % 11/29/2017 Cbc With Differential Ord2 Neut ABS# 4.45 K/ul 11/29/2017 Cbc With Differential Ord2 Lymph ABS# 3.16 K/ul 11/29/2017 Cbc With Differential Ord2 [place] ABS# 0.7 K/ul 11/29/2017 Cbc With Differential Ord2 Eos ABS# 0.2 K/ul 11/29/2017 Cbc With Differential Ord2 Baso ABS# 0.0 K/ul 11/29/2017 C RAP A SC [id number] Strep A Negative 08/20/2016 GC/CHL PRB 9042677 SOURCE CASSANDRA UNKNOWN 03/19/2012 GC/CHL PRB 4745076 CHLM PROBE NEG 03/19/2012 GC/CHL PRB 6536384 GC PROBE NEG 03/19/2012 URINALYSIS NONAUTO W/O SCOPE 76889 Specific [place] 1.010 DateTime(Free Text in Aprima) URINALYSIS NONAUTO W/O SCOPE 68388 PH 6.5 DateTime(Free Text in Aprima) URINALYSIS NONAUTO W/O SCOPE 21879 GLUCOSE neg DateTime(Free Text in Aprima) URINALYSIS NONAUTO W/O SCOPE 46395 Protein neg DateTime(Free Text in Aprima) URINALYSIS NONAUTO W/O SCOPE 95012 Blood neg DateTime(Free Text in Aprima) URINALYSIS NONAUTO W/O SCOPE 61069 Bilirubin neg DateTime(Free Text in Aprima) URINALYSIS NONAUTO W/O SCOPE 88518 Ketones neg DateTime(Free Text in Aprima) URINALYSIS NONAUTO W/O SCOPE 69061 Urobilinogen neg DateTime(Free Text in Aprima) URINALYSIS NONAUTO W/O SCOPE 74578 Nitrite neg DateTime(Free Text in Aprima) URINALYSIS NONAUTO W/O SCOPE 33950 Leukocytes neg DateTime(Free Text in ) Review [...] tender 02/22/2018 varicocele Full Exam - General 1995 Constitutional general appearance Overall: well developed 02/16/2018 [...] CPT-4: J3301 02/24/2017 THER/PROPH/DIAG INJ SC/IM CPT-4: 47649 09/16/2016 TRIAMCINOLONE ACET INJ NOS CPT-4: J3301 09/16/2016 TRIAMCINOLONE ACET INJ NOS CPT-4: J3301 07/30/2015 TRIAMCINOLONE ACET INJ NOS CPT-4: J3301 03/22/2015 ROCEPHIN, PER 250 MG CPT- 4: J0696 03/18/2012 URINALYSIS NONAUTO W/O SCOPE CPT-4: 39267 03/17/2012 ROCEPHIN, PER 250 MG CPT- 4: J0696 06/30/2011 TRIAMCINOLONE ACET INJ NOS CPT-4: J3301 06/30/2011 Vital Signs Date Vital 02/22/2018 Blood Pressure 1: 110/80 Code: 8480-6 Heart Rate 1: 74 bpm Height: 6'2" SpO2: 98% Weight: 02/16/2018 Blood Pressure 1: 130/72 Code: 8480-6 BMI: 24.0 Code: 50807-4 Heart Rate 1: 82 bpm Height: 6'2" SpO2: 97% Weight: 187 lbs 12/20/2017 Blood Pressure 1: 128/88 Code: 8480-6 BMI: 23.1 Code: 99264-4 Heart Rate 1: 86 bpm Height: 6'2" SpO2: 98% Weight: 180 lbs 11/26/2017 Blood Pressure 1: 122/80 Code: 8480-6 BMI: 23.1 Code: 92706-8 Heart Rate 1: 56 bpm Height: 6'2" SpO2: 98% Weight: 180 lbs 07/21/2017 Blood Pressure 1: 120/78 Code: 8480-6 BMI: 21.8 Code: 46862-6 Heart Rate 1: 88 bpm Height: 6'2" SpO2: 97% Weight: 170 lbs 04/05/2017 Blood Pressure 1: 126/68 Code: 8480-6 BMI: 22.6 Code: 64783-5 Heart Rate 1: 80 bpm Height: 6'2" SpO2: 98% Weight: 176 lbs 03/22/2017 Blood Pressure 1: 120/72 Code: 8480-6 BMI: 22.5 Code: 39882-6 Heart Rate 1: 82 bpm Height: 6'2" SpO2: 98% Temperature: 36.8 (C) / 98.3 (F) Weight: 175 lbs 02/24/2017 Blood Pressure 1: 120/62 Code: 8480-6 BMI: 22.5 Code: 11792-6 Heart Rate 1: 84 bpm Height: 6'2" SpO2: 98% Weight: 175 lbs 08/20/2016 Blood Pressure 1: 126/78 Code: 8480-6 BMI: 24.1 Code: 28159-9 Heart Rate 1: 84 bpm Height: 6'2" SpO2: 98% Temperature: 37.1 (C) / 98.8 (F) Weight: 188 lbs 06/10/2016 Blood Pressure 1: 124/62 Code: 8480-6 BMI: 24.4 Code: 26233-8 Heart Rate 1: 85 bpm Height: 6'2" SpO2: 98% Weight: 190 lbs 02/07/2016 Blood Pressure 1: 128/72 Code: 8480-6 BMI: 23.6 Code: 72463-3 Heart Rate 1: 78 bpm Height: 6'2" SpO2: 96% Weight: 184 lbs 01/08/2016 Blood Pressure 1: 108/70 Code: 8480-6 BMI: 23.4 Code: 99857-8 Heart Rate 1: 84 bpm Height: 6'2" SpO2: 96% Weight: 182 lbs 07/30/2015 Blood Pressure 1: 110/64 Code: 8480-6 BMI: 22.6 Code: 44216-0 Heart Rate 1: 78 bpm Height: 6'2" SpO2: 98% Weight: 176 lbs 03/22/2015 Blood Pressure 1: 126/80 Code: 8480-6 BMI: 24.0 Code: 24041-1 Heart Rate 1: 76 bpm Height: 6'2" SpO2: 98% Weight: 187 lbs 06/20/2012 Blood Pressure 1: 110/76 Code: 8480-6 Heart Rate 1: 100 bpm Temperature: 38.7 (C) / 101.7 (F) Weight: 169 lbs 03/18/2012 Blood Pressure 1: 132/70 Code: 8480-6 Heart Rate 1: 80 bpm Weight: 160 lbs 06/30/2011 Blood Pressure 1: 110/72 Code: 8480-6 BMI: 23.9 Code: 43163-0 Heart Rate 1: 72 bpm Height: 6'2" Respiratory Rate: 20 bpm Weight: 186 lbs 03/09/2011 Blood Pressure 1: 96/58 Code: 8480-6 BMI: 23.2 Code: 61919- 5 Heart Rate 1: 80 bpm Height: 6'2" Respiratory Rate: 16 bpm Weight: 183 lbs 01/12/2011 Blood Pressure 1: 126/80 Code: 8480-6 BMI: 23.5 Code: 66877-3 Heart Rate 1: 82 bpm Height: 6'2" [...] 04/05/2017 None rash Location-Head/Neck on the left sabianism 04/05/2017 None rash Location-Head/Neck on the forehead [...] Encounters Encounter Performer Location Codes Date () 57026 EST. 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 PATIENT, LEVEL III Diagnosis: Dysuria[ICD10: R30.0] Cherry Riggs MD, [facility] CPT-4: 52796 02/16/2018 ([id number]) 97987 EST. PATIENT, LEVEL III Diagnosis: Pain in left knee[ICD10: M25.562] Gin Riggs MD, [facility] CPT- 4: 21181 12/20/2017 ([id number]) PREV VISIT EST AGE 40-64 Diagnosis: Encounter for general adult medical examination without abnormal findings[ICD10: Z00.00] Diagnosis: Dysuria[ICD10: R30.0] Diagnosis: Other allergic rhinitis[ICD10: J30.89] Gin Riggs MD, [facility] CPT-4: 05391 11/26/2017 11228 EST. PATIENT, LEVEL IV Diagnosis: Other acute sinusitis[ICD10: J01.80] Diagnosis: Other allergic rhinitis[ICD10: J30.89] Cherry Riggs MD, [facility] CPT- 4: 94334 07/21/2017 46238 EST. PATIENT, LEVEL IV Diagnosis: Allergic contact dermatitis due to plants, except food[ICD10: L23.7] Cherry Riggs MD, [facility] CPT-4: 07741 04/05/2017 ([id number]) 71572 EST. PATIENT, LEVEL III Diagnosis: Acute recurrent maxillary sinusitis[ICD10: J01.01] Gin Riggs MD, [facility] CPT-4: 97288 03/22/2017 52962 EST. PATIENT, LEVEL IV Diagnosis: Other acute sinusitis[ICD10: J01.80] Diagnosis: Other allergic rhinitis[ICD10: J30.89] Cherry Riggs MD, [facility] CPT- 4: 28720 02/24/2017 ([id number]) 53735 EST. PATIENT, LEVEL III Diagnosis: Acute laryngopharyngitis[ICD10: J06.0] Gin Riggs MD, [facility] CPT-4: 24915 08/20/2016 56246 EST. PATIENT, LEVEL III Diagnosis: Pain in right shoulder[ICD10: M25.511] Cherry Riggs MD, [facility] CPT- 4: 01535 06/10/2016 ([id number]) 95960 EST. PATIENT, LEVEL II Diagnosis: Melanocytic nevi, unspecified[ICD10: D22.9] Gin Riggs MD, [facility] CPT-4: 45719 02/07/2016 42133 EST. PATIENT, LEVEL III Diagnosis: Other acute sinusitis[ICD10: J01.80] Diagnosis: Other allergic rhinitis[ICD10: J30.89] Cherry Riggs MD, [facility] CPT- 4: 28003 01/08/2016 ([id number]) 50413 EST. PATIENT, LEVEL III Diagnosis: Acute recurrent maxillary sinusitis[ICD10: J01.01] Gin Riggs MD, [facility] CPT-4: 38911 07/30/2015 ([id number]) PREV VISIT EST AGE 18-39 Diagnosis: Encounter for general adult medical examination without abnormal findings[ICD10: Z00.00] Diagnosis: Allergic rhinitis, unspecified[ICD10: J30.9] Gin Riggs MD, [facility] CPT-4: 82367 03/22/2015 ([id number]) 36641 EST. PATIENT, LEVEL III Diagnosis: Influenza[ICD9: 487.1] Gin Riggs MD, [facility] CPT-4: 04835 06/20/2012 39912 EST. PATIENT, LEVEL II Diagnosis: DYSURIA[ICD9: 788.1] Diagnosis: Screen for sexually transmitted diseases[ICD9: V74.5] [facility] CPT-4: 96809 03/18/2012 ([id number]) 31596 EST. PATIENT, LEVEL III Diagnosis: ACUTE SINUSITIS[ICD9: 461.9] [facility] CPT-4: 76540 06/30/2011 60575 EST. PATIENT, LEVEL IV Diagnosis: ESOPHAGEAL REFLUX[ICD9: 530.81] Diagnosis: Constipation[ICD9: 564.00] [facility] CPT-4: 14596 03/09/2011 OFFICE VISIT, NEW - LEVEL 3 Diagnosis: Encounter for annual health examination[ICD9: V70.0] Diagnosis: Esophageal reflux[ICD9: 530.81] [facility] CPT-4: 74145 01/12/2011 Plan of Care Planned Activity Notes Codes Status Date Patient Education: Patient Medication Summary Completed 03/15/2018 Care Plan: Comp Metabolic Pending 03/15/2018 Visit Plan: Varicocele-grade 3 -discussed with Dr Riggs - start an aspirin daily - discussed anti inflammatories, supportive underwear and to call if symptoms do not resolve or if any worse. Patient verbalized understanding of plan. 02/22/2018 Appointment: Gin Dooley WPtel: [address] [place], [place] [phone] (15 min) Moderate 02/22/2018 Patient Education: Patient [...] to urology 02/16/2018 Appointment: Cherry Wagoner WPtel: [facility]5 [facility] (15 min) Moderate 02/16/2018 Patient Education: Patient Medication Summary Completed 02/16/2018 Patient Education: Patient Medication Summary Completed 01/03/2018 Visit Plan: Left knee pain -suspect meniscal injury -will xray knee today and then schedule MRI for further evaluation -discussed rest, ice and anti inflammatories as directed 12/20/2017 Appointment: Gin Dooley WPtel: [phone] [phone] (15 min) Moderate 12/20/2017 Patient Education: Patient Medication Summary Completed 12/20/2017 Care Plan: X-RAY EXAM OF KNEE 3 [facility] : 63311-7 Pending 12/20/2017 Visit Plan: Well Adult - [...] improve. 11/26/2017 Appointment: Gin Dooley WPtel: [phone] [phone] [place] (15 min) Moderate 11/26/2017 Patient Education: Patient [...] allergy spray. 07/21/2017 Appointment: Cherry Wagoner WPtel: [phone] (15 min) Moderate 07/21/2017 Patient Education: Patient Medication Summary Completed 07/21/2017 Visit Plan: Poison Ruthy - pt is to use topical treatments as directed. Pt is cleanse clothing in hot water with soap, and call if symptoms do not improve or if they worsen. 04/05/2017 Appointment: Cherry Wagoner WPtel: [phone] [facility] [place] (10 min) Simple 04/05/2017 Patient Education: [...] spray. 03/22/2017 Appointment: Gin Dooley WPtel: [phone] [phone] [place] (15 min) Moderate 03/22/2017 Patient Education: [...] spray. 02/24/2017 Appointment: Cherry Wagoner WPtel: [phone] [phone] (15 min) Moderate 02/24/2017 Patient Education: Patient [...] fever/discomfort. 08/20/2016 Appointment: Gin Dooley WPtel: [phone] [phone] [place] (10 min) Simple 08/20/2016 Patient Education: [...] evaluation 02/07/2016 Appointment: Gin Dooley WPtel: [phone] [phone] [place] (30 min) Complex 02/07/2016 Patient Education: Patient Medication Summary Completed 02/07/2016 Care Plan: Referral Order SNOMED-CT : [id number] Pending 02/07/2016 Visit Plan: Sinusitis - Pt [...] the office 03/22/2015 Appointment: Gin Dooley WPtel: [address] [place], [place] [phone] Physical 03/22/2015 Patient Education: Patient Medication Summary [...] any worse. 06/20/2012 Appointment: Gin Dooley WPtel: [phone] [facility] [place] [address] 06/20/2012 Patient Education: Patient Medication Summary Completed [...] of testing. 03/18/2012 Appointment: Gin Dooley WPtel: [address] [place] [address] Other 03/18/2012 Patient Education: Patient Medication Summary Completed 03/18/2012 Appointment: Claire Riggs WPtel: [facility]9 [facility]66[facility] Lab Draw 03/17/2012 Patient Education: Patient Medication [...] not resolve. 06/30/2011 Appointment: Gin Dooley WPtel: [facility]0 [phone] Other 06/30/2011 Patient Education: Patient Medication Summary [...] 3:30pm. 03/09/2011 Appointment: [phone] Other 03/09/2011 Patient Education: Patient Medication Summary [...] Rig[facility]el[phone] [place] New Patient 01/12/2011 Patient Education: Patient [...] call if symptoms do not improve. . Poison Ruthy - pt is to [...] for an antibiotic nasal spray compound that [facility] makes . Sinusitis - Pt has [...]
--- OUTSIDE RECORDS SUMMARY | 2018-11-22 07:32 | XMS REPORT | CCD ---
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 Name Role Phone Claire Riggs PP Unavailable CCM Unavailable Summary Purpose Interface Exchange Insurance Providers Payer name Policy type / Coverage type Covered democrat ID Effective Begin Date Effective End Date Blue Cross Blue [facility] Blue Cross/[facility] [id number] Unknown Family history Mother Diagnosis Age At Onset Cancer Unknown Brother Diagnosis Age At Onset No Family Disease Entered N/A Grandmother Diagnosis Age At Onset Cancer Unknown Father Diagnosis Age At Onset No Family Disease Entered N/A Social History Social History Element Codes Description Effective Dates Marital status Unknown 01/12/2011 Employment Unknown 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 Unknown Has never used illegal drugs 01/12/2011 Allergies, Adverse Reactions, Alerts Substance Reaction Codes Entered Date Inactivated Date Status * NO KNOWN DRUG ALLERGIES Unknown 01/12/2011 No Inactive Date Active * NO KNOWN FOOD ALLERGIES Unknown 01/12/2011 No Inactive Date Active bactrim RxNorm: 339928 03/22/2015 No Inactive Date Active Past Medical [...] Instructions Augmentin 875 mg-125 mg tablet RxNorm: 257557 1 Tablet(s) PO BID 12/24/2017 12/23/2017 Inactive Augmentin 875 mg-125 mg tablet RxNorm: 847265 1 Tablet(s) PO BID 12/24/2017 12/30/2017 Inactive Keflex 500 mg capsule RxNorm: 072830 1 Capsule(s) PO TID 12/08/2017 12/14/2017 Inactive Yuridia-D 12 Hour 60 mg-120 mg tablet,extended release RxNorm: 207032 1 Tablet(s) PO BID 12/06/2017 No Stop Date Active Keflex 500 mg capsule RxNorm: 216976 1 Capsule(s) PO TID 11/26/2017 12/02/2017 Inactive Flonase 50 mcg/actuation nasal spray,suspension RxNorm: 7186835 1 [place] NASAL BID 11/15/2017 No Stop Date Active Yuridia Allergy 180 mg tablet RxNorm: 005788 1 Tablet(s) PO daily 10/27/2017 10/27/2017 Inactive Zyrtec-D 5 mg-120 mg tablet,extended release RxNorm: 7702962 1 Tablet(s) PO BID as needed 10/20/2017 No Stop Date Active Yuridia Allergy 180 mg tablet RxNorm: 379335 1 Tablet(s) PO daily 09/21/2017 10/20/2017 Inactive Augmentin 500 mg-125 mg tablet RxNorm: 415750 1 Tablet(s) PO TID 07/21/2017 07/30/2017 Inactive Yuridia Allergy 180 mg tablet RxNorm: 810013 1 Tablet(s) PO daily 07/21/2017 08/19/2017 Inactive Zyrtec-D 5 mg-120 mg tablet,extended release RxNorm: 2289991 1 Tablet(s) PO BID as needed 06/15/2017 10/19/2017 Inactive Zyrtec-D 5 mg-120 mg tablet,extended release RxNorm: 7002539 1 Tablet(s) PO BID as needed 05/11/2017 No Stop Date Active prednisone 10 mg tablet RxNorm: 171215 Tablet(s) PO 04/05/2017 12/07/2017 Inactive 6,5,4,3,2,1 Kenalog 40 mg/mL suspension for injection RxNorm: 2314366 1 Milliliter(s) Inj 04/05/2017 04/05/2017 Inactive Flonase 50 mcg/actuation nasal spray,suspension RxNorm: 9244679 1 [place] NASAL BID 04/01/2017 11/14/2017 Inactive Augmentin 875 mg-125 mg tablet RxNorm: 182271 1 Tablet(s) PO BID 03/22/2017 03/28/2017 Inactive prednisone 20 mg tablet RxNorm: 194855 2 Tablet(s) PO daily 03/02/2017 03/06/2017 Inactive prednisone 20 mg tablet RxNorm: 169158 2 Tablet(s) PO daily 03/02/2017 03/01/2017 Inactive Zithromax Z-Surya 250 mg tablet RxNorm: 665828 1 Tablet(s) PO UD 02/24/2017 03/21/2017 Inactive Kenalog 40 mg/mL suspension for injection RxNorm: 7003705 1 Milliliter(s) Inj 02/24/2017 02/24/2017 Inactive Zyrtec-D 5 mg-120 mg tablet,extended release RxNorm: 5809255 1 Tablet(s) PO BID as needed 02/05/2017 05/10/2017 Inactive Zyrtec-D 5 mg-120 mg tablet,extended release RxNorm: 8147025 1 Tablet(s) PO BID as needed 12/01/2016 02/04/2017 Inactive Zyrtec-D 5 mg-120 mg tablet,extended release RxNorm: 8421024 1 Tablet(s) PO BID as needed 11/03/2016 11/30/2016 Inactive Zyrtec-D 5 mg-120 mg tablet,extended release RxNorm: 1484378 1 Tablet(s) PO BID as needed 10/09/2016 11/02/2016 Inactive Kenalog 40 mg/mL suspension for injection RxNorm: 9312619 1 Milliliter(s) Inj 09/16/2016 09/16/2016 Inactive Levaquin 500 mg tablet RxNorm: 849735 1 Tablet(s) PO daily 09/15/2016 09/24/2016 Inactive Levaquin 500 mg tablet RxNorm: 813137 1 Tablet(s) PO daily 09/15/2016 09/14/2016 Inactive prednisone 20 mg tablet RxNorm: 577281 1 Tablet(s) PO BID 09/15/2016 09/19/2016 Inactive amoxicillin 500 mg tablet RxNorm: 415226 1 Tablet(s) PO BID 08/20/2016 08/29/2016 Inactive Augmentin 875 mg-125 mg tablet RxNorm: 752660 1 Tablet(s) PO BID 04/23/2016 04/28/2016 Inactive Zyrtec-D 5 mg-120 mg tablet,extended release RxNorm: 2884662 1 Tablet(s) PO BID as needed 01/31/2016 10/08/2016 Inactive Flonase 50 mcg/actuation nasal spray,suspension RxNorm: 1583202 1 [place] NASAL BID 01/08/2016 01/22/2016 Inactive Flonase 50 mcg/actuation nasal spray,suspension RxNorm: 7665506 1 [place] NASAL BID 01/08/2016 01/07/2016 Inactive 1 spray each nare x 5 days Zithromax Z-Surya 250 mg tablet RxNorm: 632559 Tablet(s) PO 01/08/2016 01/30/2016 Inactive Zyrtec-D 5 mg-120 mg tablet,extended release RxNorm: 6325786 1 Tablet(s) PO BID as needed 01/08/2016 01/30/2016 Inactive Augmentin 875 mg-125 mg tablet RxNorm: 382564 1 Tablet(s) PO BID 10/08/2015 10/17/2015 Inactive Augmentin 875 mg-125 mg tablet RxNorm: 828393 1 Tablet(s) PO BID 10/08/2015 10/07/2015 Inactive prednisone 20 mg tablet RxNorm: 064830 1 Tablet(s) PO BID 08/01/2015 08/05/2015 Inactive prednisone 20 mg tablet RxNorm: 842983 1 Tablet(s) PO BID 08/01/2015 07/31/2015 Inactive Kenalog 40 mg/mL suspension for injection RxNorm: 5725075 Milliliter(s) Inj 07/30/2015 07/30/2015 Inactive Zyrtec-D 5 mg-120 mg tablet,extended release RxNorm: 0663286 1 Tablet(s) PO BID as needed 07/30/2015 01/07/2016 Inactive Augmentin 875 mg-125 mg tablet RxNorm: 968245 1 Tablet(s) PO BID 07/30/2015 08/05/2015 Inactive Kenalog 40 mg/mL suspension for injection RxNorm: 0931999 1 Milliliter(s) Inj 03/22/2015 03/22/2015 Inactive Flonase 50 mcg/actuation Nasal [place] RxNorm: 7016915 1 [place] NASAL 07/12/2012 07/11/2012 Inactive 1 spray each nare x 5 days Flonase 50 mcg/actuation Nasal [place] RxNorm: 3980320 1 [place] NASAL 07/12/2012 07/16/2012 Inactive 1 spray each nare x 5 days cefdinir 300 mg capsule RxNorm: 766847 1 Capsule(s) PO BID 07/12/2012 07/18/2012 Inactive cefdinir 300 mg capsule RxNorm: 404196 1 Capsule(s) PO BID 07/12/2012 07/11/2012 Inactive Tamiflu 75 mg capsule RxNorm: 796557 1 Capsule(s) PO BID 06/20/2012 06/24/2012 Inactive Tamiflu 75 mg capsule RxNorm: 643383 1 Capsule(s) PO BID 06/20/2012 06/19/2012 Inactive Diflucan 150 mg tablet RxNorm: 120524 1 Tablet(s) PO daily 04/21/2012 05/04/2012 Inactive nystatin 100,000 unit/g Topical Cream RxNorm: 070378 1 Application TOP TID 04/13/2012 05/02/2012 Inactive one application to groin tid Diflucan 150 mg tablet RxNorm: 582629 1 Tablet(s) PO daily 04/04/2012 04/06/2012 Inactive nystatin 100,000 unit/g Topical Cream RxNorm: 514483 1 Application TOP TID 04/04/2012 04/03/2012 Inactive one application to groin tid x 10 day nystatin 100,000 unit/g Topical Cream RxNorm: 099237 1 Application TOP TID 04/04/2012 04/12/2012 Inactive one application to groin tid x 10 day Diflucan 150 mg tablet RxNorm: 725751 1 Tablet(s) PO daily 03/23/2012 03/22/2012 Inactive Diflucan 150 mg tablet RxNorm: 713930 1 Tablet(s) PO daily 03/23/2012 03/29/2012 Inactive Rocephin 1 gram Solution for Injection RxNorm: 635739 Inj 03/18/2012 03/18/2012 Inactive Augmentin 500 mg-125 mg tablet RxNorm: 482723 1 Tablet(s) PO TID 03/11/2012 03/10/2012 Inactive Augmentin 500 mg-125 mg tablet RxNorm: 423249 1 Tablet(s) PO TID 03/11/2012 03/17/2012 Inactive Kenalog 40 mg/mL Susp for Injection RxNorm: 2305883 1 Milliliter(s) Inj 07/02/2011 07/02/2011 Inactive Rocephin 500 mg Solution for Injection RxNorm: 521208 1 Milliliter(s) Inj 07/02/2011 07/02/2011 Inactive Bactrim DS 800 mg-160 mg Tab RxNorm: 930433 1 Tablet(s) PO BID 06/30/2011 07/09/2011 Inactive Aspirin For Children 81 mg Chewable Tab RxNorm: 875273 1 Tablet(s) PO daily No Start Date Active multivitamin Oral RxNorm: Oral No Start Date Active omeprazole 40 mg Cap, Delayed Release RxNorm: 560237 1 Capsule(s) PO PRN No Start Date Active Yuridia-D 12 Hour 60 mg-120 mg tablet,extended release RxNorm: 165259 1 Tablet(s) PO BID No Start Date 12/05/2017 Inactive Zithromax 500 mg tablet RxNorm: 6300929 2 Tablet(s) PO daily No Start Date 01/30/2016 Inactive Zyrtec-D 5 mg-120 mg 12 hr Tab RxNorm: 2212570 1 Tablet(s) PO daily No Start Date 07/29/2015 Inactive Medication Administered Medication Codes Instructions Start Date Status Kenalog 40 mg/mL suspension for injection RxNorm: 6477901 1Milliliter 04/05/2017 No longer Active Kenalog 40 mg/mL suspension for injection RxNorm: 9914020 1Milliliter 02/24/2017 No longer Active Kenalog 40 mg/mL suspension for injection RxNorm: 2489105 1Milliliter 09/16/2016 No longer Active Kenalog 40 mg/mL suspension for injection RxNorm: 6993732 [place] 07/30/2015 No longer Active Kenalog 40 mg/mL suspension for injection RxNorm: 3446670 1Milliliter 03/22/2015 No longer Active Rocephin 1 gram Solution for Injection RxNorm: 588992 03/18/2012 No longer Active Kenalog 40 mg/mL Susp for Injection RxNorm: 5710763 1Milliliter 07/02/2011 No longer Active Rocephin 500 mg Solution for Injection RxNorm: 579186 1Milliliter 07/02/2011 No longer Active Immunizations Vaccine Codes Date Status Tetanus, Diptheria, Pertussis Unknown 05/23/2010 completed Assessments Condition Codes Effective Dates Dysuria ICD-10: R30.0 ICD-9: 788.1 01/03/2018 Pain in left knee ICD-10: M25.562 ICD-9: [...] Visit Reason For Visit Effective Dates Notes knee pain 12/20/2017 well man exam (40-65 [...] Observation Code Item Item Code Result Date Urinalysis Ord28 U-Color Yellow 01/04/2018 Urinalysis Ord28 [...] if culture needed 01/04/2018 Hepatitis Panel (Abc) 17579 HEPATITIS B SURFACE AG . 12/09/2017 Hepatitis Panel (Abc) 57978 HEPATITIS B SURFACE AG NEGATIVE 12/09/2017 Hepatitis Panel (Abc) 70911 HEPATITIS B CORE AB, IGM . 12/09/2017 Hepatitis Panel (Abc) 98375 HEPATITIS B CORE AB, IGM NEGATIVE 12/09/2017 Hepatitis Panel (Abc) 54537 HEPATITIS A AB, IGM . 12/09/2017 Hepatitis Panel (Abc) 25586 HEPATITIS A AB, IGM NEGATIVE 12/09/2017 Hepatitis Panel (Abc) 63928 HEPATITIS C ANTIBODY . 12/09/2017 Hepatitis Panel (Abc) 86581 HEPATITIS C ANTIBODY NEGATIVE 12/09/2017 Tsh Ord6 TSH (3rd IS) 2.24 uIU/mL 11/29/2017 Comp Metabolic Izz828 NA 138 mEq/L 11/29/2017 Comp Metabolic Kdr885 K 4.1 mEq/L 11/29/2017 Comp Metabolic Bcy383 CL 101 mEq/L 11/29/2017 Comp Metabolic Ocs101 CO2 30.0 mEq/L 11/29/2017 Comp Metabolic Epy338 ANION GAP 11 11/29/2017 Comp Metabolic Hiz190 GLUCOSE 89 mg/dL 11/29/2017 Comp Metabolic Zaz409 Creat 0.8 mg/dL 11/29/2017 Comp Metabolic Kvv266 eGFR 107 ml/min/1.73m2 11/29/2017 Comp Metabolic Dks414 BUN 15 mg/dL 11/29/2017 Comp Metabolic Wwm868 B/C Ratio 17.9 Ratio 11/29/2017 Comp Metabolic Afp783 CALCIUM 9.4 mg/dL 11/29/2017 Comp Metabolic Skq812 ALK PHOS 71 U/L 11/29/2017 Comp Metabolic Qiw124 AST(SGOT) 19 U/L 11/29/2017 Comp Metabolic Sxx027 ALT(SGPT) 27 U/L 11/29/2017 Comp Metabolic Kon914 BILI T 1.8 mg/dL 11/29/2017 Comp Metabolic Oez171 ALBUMIN 4.4 g/dL 11/29/2017 Comp Metabolic Foo049 TPRO 6.8 g/dL 11/29/2017 Comp Metabolic Ytx387 GLOB 2.5 g/dL 11/29/2017 Comp Metabolic Aza572 A/G Ratio 1.8 Ratio 11/29/2017 Comp Metabolic Esd599 Osmo 276 mOsmo 11/29/2017 Urine Culture Ucult [...] 82.7 fl 11/29/2017 Cbc With Differential Ord2 Jackson% 8.3 % 11/29/2017 Cbc With Differential Ord2 [...] 3.16 K/ul 11/29/2017 Cbc With Differential Ord2 Jackson ABS# 0.7 K/ul 11/29/2017 Cbc With Differential Ord2 Eos ABS# 0.2 K/ul 11/29/2017 Cbc With Differential Ord2 Baso ABS# 0.0 K/ul 11/29/2017 C RAP A SC [id number] Strep A Negative 08/20/2016 GC/CHL PRB 0229855 SOURCE CASSANDRA UNKNOWN 03/19/2012 GC/CHL PRB 7333503 CHLM PROBE NEG 03/19/2012 GC/CHL PRB 1623468 GC PROBE NEG 03/19/2012 URINALYSIS NONAUTO W/O SCOPE 14868 Specific [place] 1.010 DateTime(Free Text in Aprima) URINALYSIS NONAUTO W/O SCOPE 96486 PH 6.5 DateTime(Free Text in Aprima) URINALYSIS NONAUTO W/O SCOPE 02601 GLUCOSE neg DateTime(Free Text in Aprima) URINALYSIS NONAUTO W/O SCOPE 12709 Protein neg DateTime(Free Text in Aprima) URINALYSIS NONAUTO W/O SCOPE 17420 Blood neg DateTime(Free Text in Aprima) URINALYSIS NONAUTO W/O SCOPE 21893 Bilirubin neg DateTime(Free Text in Aprima) URINALYSIS NONAUTO W/O SCOPE 79027 Ketones neg DateTime(Free Text in Aprima) URINALYSIS NONAUTO W/O SCOPE 69872 Urobilinogen neg DateTime(Free Text in Aprima) URINALYSIS NONAUTO W/O SCOPE 79944 Nitrite neg DateTime(Free Text in Aprima) URINALYSIS NONAUTO W/O SCOPE 63315 Leukocytes neg DateTime(Free Text in Aprima) Review of Systems System Result Effective Dates Constitutional No recent illness 12/20/2017 Constitutional No [...] Result Effective Dates Notes Full Exam - Orthopedics Constitutional general appearance [...] CPT-4: J3301 02/24/2017 THER/PROPH/DIAG INJ SC/IM CPT-4: 75201 09/16/2016 TRIAMCINOLONE ACET INJ NOS CPT-4: J3301 09/16/2016 TRIAMCINOLONE ACET INJ NOS CPT-4: J3301 07/30/2015 TRIAMCINOLONE ACET INJ NOS CPT-4: J3301 03/22/2015 ROCEPHIN, PER 250 MG CPT- 4: J0696 03/18/2012 URINALYSIS NONAUTO W/O SCOPE CPT-4: 05967 03/17/2012 ROCEPHIN, PER 250 MG CPT- 4: J0696 06/30/2011 TRIAMCINOLONE ACET INJ NOS CPT-4: J3301 06/30/2011 Vital Signs Date Vital 12/20/2017 Blood Pressure 1: 128/88 Code: 8480-6 BMI: 23.1 Code: 92940-4 Heart Rate 1: 86 bpm Height: 6'2" SpO2: 98% Weight: 180 lbs 11/26/2017 Blood Pressure 1: 122/80 Code: 8480-6 BMI: 23.1 Code: 31914-4 Heart Rate 1: 56 bpm Height: 6'2" SpO2: 98% Weight: 180 lbs 07/21/2017 Blood Pressure 1: 120/78 Code: 8480-6 BMI: 21.8 Code: 27237-8 Heart Rate 1: 88 bpm Height: 6'2" SpO2: 97% Weight: 170 lbs 04/05/2017 Blood Pressure 1: 126/68 Code: 8480-6 BMI: 22.6 Code: 14224-1 Heart Rate 1: 80 bpm Height: 6'2" SpO2: 98% Weight: 176 lbs 03/22/2017 Blood Pressure 1: 120/72 Code: 8480-6 BMI: 22.5 Code: 77381-3 Heart Rate 1: 82 bpm Height: 6'2" SpO2: 98% Temperature: 36.8 (C) / 98.3 (F) Weight: 175 lbs 02/24/2017 Blood Pressure 1: 120/62 Code: 8480-6 BMI: 22.5 Code: 62609-4 Heart Rate 1: 84 bpm Height: 6'2" SpO2: 98% Weight: 175 lbs 08/20/2016 Blood Pressure 1: 126/78 Code: 8480-6 BMI: 24.1 Code: 88602-5 Heart Rate 1: 84 bpm Height: 6'2" SpO2: 98% Temperature: 37.1 (C) / 98.8 (F) Weight: 188 lbs 06/10/2016 Blood Pressure 1: 124/62 Code: 8480-6 BMI: 24.4 Code: 91328-8 Heart Rate 1: 85 bpm Height: 6'2" SpO2: 98% Weight: 190 lbs 02/07/2016 Blood Pressure 1: 128/72 Code: 8480-6 BMI: 23.6 Code: 26323-4 Heart Rate 1: 78 bpm Height: 6'2" SpO2: 96% Weight: 184 lbs 01/08/2016 Blood Pressure 1: 108/70 Code: 8480-6 BMI: 23.4 Code: 00638-8 Heart Rate 1: 84 bpm Height: 6'2" SpO2: 96% Weight: 182 lbs 07/30/2015 Blood Pressure 1: 110/64 Code: 8480-6 BMI: 22.6 Code: 05741-7 Heart Rate 1: 78 bpm Height: 6'2" SpO2: 98% Weight: 176 lbs 03/22/2015 Blood Pressure 1: 126/80 Code: 8480-6 BMI: 24.0 Code: 95059-8 Heart Rate 1: 76 bpm Height: 6'2" SpO2: 98% Weight: 187 lbs 06/20/2012 Blood Pressure 1: 110/76 Code: 8480-6 Heart Rate 1: 100 bpm Temperature: 38.7 (C) / 101.7 (F) Weight: 169 lbs 03/18/2012 Blood Pressure 1: 132/70 Code: 8480-6 Heart Rate 1: 80 bpm Weight: 160 lbs 06/30/2011 Blood Pressure 1: 110/72 Code: 8480-6 BMI: 23.9 Code: 84853-2 Heart Rate 1: 72 bpm Height: 6'2" Respiratory Rate: 20 bpm Weight: 186 lbs 03/09/2011 Blood Pressure 1: 96/58 Code: 8480-6 BMI: 23.2 Code: 87745- 5 Heart Rate 1: 80 bpm Height: 6'2" Respiratory Rate: 16 bpm Weight: 183 lbs 01/12/2011 Blood Pressure 1: 126/80 Code: 8480-6 BMI: 23.5 Code: 01252-0 Heart Rate 1: 82 bpm Height: 6'2" Respiratory Rate: 16 bpm Weight: 183 lbs Functional Status No Functional Status data History of Present Illness Symptom Name Status Result Effective Date Notes knee pain Location on the left 12/20/2017 [...] 04/05/2017 None rash Location-Head/Neck on the left church 04/05/2017 None rash Location-Head/Neck on the forehead [...] Encounters Encounter Performer Location Codes Date () 36737 EST. PATIENT, LEVEL III Diagnosis: Pain in left knee[ICD10: M25.562] Gin Riggs MD, [facility] CPT- 4: 39613 12/20/2017 ([id number]) PREV VISIT EST AGE 40-64 Diagnosis: Encounter for general adult medical examination without abnormal findings[ICD10: Z00.00] Diagnosis: Dysuria[ICD10: R30.0] Diagnosis: Other allergic rhinitis[ICD10: J30.89] iGn Riggs MD, [facility] CPT-4: 52956 11/26/2017 34189 EST. PATIENT, LEVEL IV Diagnosis: Other acute sinusitis[ICD10: J01.80] Diagnosis: Other allergic rhinitis[ICD10: J30.89] Cherry Riggs MD, [facility] CPT- 4: 98803 07/21/2017 65570 EST. PATIENT, LEVEL IV Diagnosis: Allergic contact dermatitis due to plants, except food[ICD10: L23.7] Cherry Riggs MD, [facility] CPT-4: 52444 04/05/2017 ([id number]) 76221 EST. PATIENT, LEVEL III Diagnosis: Acute recurrent maxillary sinusitis[ICD10: J01.01] Gin Riggs MD, [facility] CPT-4: 36100 03/22/2017 70737 EST. PATIENT, LEVEL IV Diagnosis: Other acute sinusitis[ICD10: J01.80] Diagnosis: Other allergic rhinitis[ICD10: J30.89] Cherry Riggs MD, [facility] CPT- 4: 53451 02/24/2017 ([id number]) 69171 EST. PATIENT, LEVEL III Diagnosis: Acute laryngopharyngitis[ICD10: J06.0] [facility] CPT-4: 68321 08/20/2016 67404 EST. PATIENT, LEVEL III Diagnosis: Pain in right shoulder[ICD10: M25.511] Cherry Riggs MD, [facility] CPT- 4: 74915 06/10/2016 ([id number]) 35675 EST. PATIENT, LEVEL II Diagnosis: Melanocytic nevi, unspecified[ICD10: D22.9] Gin Riggs MD, [facility] CPT-4: 75595 02/07/2016 98151 EST. PATIENT, LEVEL III Diagnosis: Other acute sinusitis[ICD10: J01.80] Diagnosis: Other allergic rhinitis[ICD10: J30.89] Cherry Riggs MD, [facility] CPT- 4: 59891 01/08/2016 ([id number]) 27649 EST. PATIENT, LEVEL III Diagnosis: Acute recurrent maxillary sinusitis[ICD10: J01.01] Gin Riggs MD, [facility] CPT-4: 99051 07/30/2015 ([id number]) PREV VISIT EST AGE 18-39 Diagnosis: Encounter for general adult medical examination without abnormal findings[ICD10: Z00.00] Diagnosis: Allergic rhinitis, unspecified[ICD10: J30.9] Gin Riggs MD, [facility] CPT-4: 89011 03/22/2015 ([id number]) 42233 EST. PATIENT, LEVEL III Diagnosis: Influenza[ICD9: 487.1] Gin Riggs MD, [facility] CPT-4: 60112 06/20/2012 53179 EST. PATIENT, LEVEL II Diagnosis: DYSURIA[ICD9: 788.1] Diagnosis: Screen for sexually transmitted diseases[ICD9: V74.5] Gin Riggs MD, [facility] CPT-4: 55864 03/18/2012 ([id number]) 60436 EST. PATIENT, LEVEL III Diagnosis: ACUTE SINUSITIS[ICD9: 461.9] Gin Riggs MD, [facility] CPT-4: 93480 06/30/2011 70638 EST. PATIENT, LEVEL IV Diagnosis: ESOPHAGEAL REFLUX[ICD9: 530.81] Diagnosis: Constipation[ICD9: 564.00] Claire Riggs MD, [facility] CPT-4: 50112 03/09/2011 OFFICE VISIT, NEW - LEVEL 3 Diagnosis: Encounter for annual health examination[ICD9: V70.0] Diagnosis: Esophageal reflux[ICD9: 530.81] Claire Riggs MD, [facility] CPT-4: 51919 01/12/2011 Plan of Care Planned Activity Notes Codes Status Date Patient Education: Patient Medication Summary Completed 01/03/2018 Care Plan: Urine Culture if indicated Pending 01/03/2018 Visit Plan: Left knee pain -suspect meniscal injury -will xray knee today and then schedule MRI for further evaluation -discussed rest, ice and anti inflammatories as directed 12/20/2017 Appointment: Gin Dooley WPtel: [phone] [phone] (15 min) Moderate 12/20/2017 Patient Education: Patient Medication Summary Completed 12/20/2017 Care Plan: X-RAY EXAM OF KNEE 3 LOINC : 20562-7 Pending 12/20/2017 Visit Plan: Well Adult - [...] improve. 11/26/2017 [phone] (15 min) Moderate 11/26/2017 Patient Education: Patient [...] spray. 07/21/2017 Appointment: Cherry Wagoner WPtel: [phone] (15 min) Moderate 07/21/2017 Patient Education: Patient Medication Summary Completed 07/21/2017 Visit Plan: Poison Ruthy - pt is to use topical treatments as directed. Pt is cleanse clothing in hot water with soap, and call if symptoms do not improve or if they worsen. 04/05/2017 Appointment: Cherry Wagoner WPtel: [phone] [place] [phone] [place] (10 min) Simple 04/05/2017 Patient Education: [...] spray. 02/24/2017 Appointment: [facility] Wagon[facility]Ptel[facility] [phone] [facility] [place] (15 min) Moderate 02/24/2017 Patient Education: [...] fever/discomfort. 08/20/2016 Appointment: Gin Dooley WPtel: [phone] [phone] [place] (10 min) Simple [...] evaluation 02/07/2016 Appointment: Gin Dooley WPtel: [phone] [phone] [place] (30 min) Complex 02/07/2016 Patient Education: Patient Medication Summary Completed 02/07/2016 Care Plan: Referral Order SNOMED-CT : [id number] Pending 02/07/2016 Visit Plan: Sinusitis - Pt [...] the office 03/22/2015 Appointment: Gin Dooley WPtel: [address] [place], [place] [phone] Physical 03/22/2015 Patient Education: Patient Medication Summary [...] any worse. 06/20/2012 Appointment: Gin Dooley WPtel: [phone] Sick 06/20/2012 Patient Education: Patient Medication Summary [...] testing. 03/18/2012 Appointment: Gin Dooley WPtel: [address] [place], [place] [phone] Other 03/18/2012 Patient Education: Patient Medication Summary Completed 03/18/2012 Appointment: Claire Riggs WPtel: [facility] [place] Lab Draw 03/17/2012 Patient Education: Patient [...] not resolve. 06/30/2011 Appointment: Gin Dooley WPtel: [phone] Other 06/30/2011 Patient Education: Patient Medication Summary [...] at 3:30pm. 03/09/2011 Appointment: Claire Riggs WPtel: [facility] Other 03/09/2011 Patient Education: Patient Medication Summary Completed 03/09/2011 Patient Education: .Amazing charts Xavier Freidatim Completed 03/09/2011 Visit Plan: Well Adult - [...] program. 01/12/2011 Appointment: Claire [facility]el[facility] [phone] [phone] New Patient 01/12/2011 Patient Education: Patient [...] for an antibiotic nasal spray compound that [facility] pharmacy makes . Sinusitis - [...]
--- OUTSIDE RECORDS SUMMARY | 2018-11-22 07:34 | XMS REPORT | CCD ---
Author Author [facility]gs Organization [facility] Address [address] [place] [address] Phone Care Team Providers Care Care Transitions Nurse Name Role Phone Claire Riggs PP Unavailable CCM Unavailable Summary Purpose Interface Exchange Insurance Providers Payer name Policy type / Coverage type Covered alliance party ID Effective Begin Date Effective End Date [facility] [id number] Unknown Family history Mother Diagnosis Age At Onset Cancer Unknown Brother Diagnosis Age At Onset No Family Disease Entered N/A Grandmother Diagnosis Age At Onset Cancer Unknown Father Diagnosis Age At Onset No Family Disease Entered N/A Social History Social History Element Codes Description Effective Dates Marital status Unknown 01/12/2011 Employment Unknown 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 Unknown Has never used illegal drugs 01/12/2011 Allergies, Adverse Reactions, Alerts Allergies, Adverse Reactions, Alerts data not found Past Medical History Illness Codes Condition Status Onset Date Resolved Date Allergic contact dermatitis due to plants, except food ICD-9: 692.6 ICD-10: L23.7 Active 04/05/2017 Unknown Acute recurrent maxillary sinusitis ICD-9: 461.0 ICD-10: J01.01 Active 07/29/2015 Unknown Other acute sinusitis ICD- 9: 461.8 ICD-10: J01.80 Active 02/24/2017 Unknown Other allergic rhinitis ICD-9: 477.8 ICD-10: J30.89 Active 01/07/2016 Unknown Other acute sinusitis ICD- 9: 461.9 [...] Problems Condition Codes Effective Dates Condition Status Allergic contact dermatitis due to plants, except food ICD-9: 692.6 ICD-10: L23.7 04/05/2017 Active Acute recurrent maxillary sinusitis ICD-9: 461.0 ICD-10: J01.01 07/29/2015 Active Other acute sinusitis ICD- 9: 461.8 ICD-10: J01.80 02/24/2017 Active Other allergic rhinitis ICD-9: 477.8 ICD-10: J30.89 01/07/2016 Active Other acute sinusitis ICD- 9: 461.9 [...] Zyrtec-D 5 mg-120 mg tablet,extended release RxNorm: 6190180 1 Tablet(s) PO BID as needed 05/11/2017 06/13/2017 Inactive prednisone 10 mg tablet RxNorm: 060377 Tablet(s) PO 04/05/2017 No Stop Date Active 6,5,4,3,2,1 Kenalog 40 mg/mL suspension for injection RxNorm: 8359367 1 Milliliter(s) Inj 04/05/2017 04/05/2017 Inactive Flonase 50 mcg/actuation nasal spray,suspension RxNorm: 1456224 1 [place] NASAL BID 04/01/2017 No Stop Date Active Augmentin 875 mg-125 mg tablet RxNorm: 400924 1 Tablet(s) PO BID 03/22/2017 03/28/2017 Inactive prednisone 20 mg tablet RxNorm: 599946 2 Tablet(s) PO daily 03/02/2017 03/06/2017 Inactive prednisone 20 mg tablet RxNorm: 353075 2 Tablet(s) PO daily 03/02/2017 03/01/2017 Inactive Zithromax Z-Surya 250 mg tablet RxNorm: 412719 1 Tablet(s) PO UD 02/24/2017 03/21/2017 Inactive Kenalog 40 mg/mL suspension for injection RxNorm: 9463244 1 Milliliter(s) Inj 02/24/2017 02/24/2017 Inactive Zyrtec-D 5 mg-120 mg tablet,extended release RxNorm: 7994385 1 Tablet(s) PO BID as needed 02/05/2017 05/10/2017 Inactive Zyrtec-D 5 mg-120 mg tablet,extended release RxNorm: 2131601 1 Tablet(s) PO BID as needed 12/01/2016 02/04/2017 Inactive Zyrtec-D 5 mg-120 mg tablet,extended release RxNorm: 3506861 1 Tablet(s) PO BID as needed 11/03/2016 11/30/2016 Inactive Zyrtec-D 5 mg-120 mg tablet,extended release RxNorm: 1938203 1 Tablet(s) PO BID as needed 10/09/2016 11/02/2016 Inactive Kenalog 40 mg/mL suspension for injection RxNorm: 4222021 1 Milliliter(s) Inj 09/16/2016 09/16/2016 Inactive Levaquin 500 mg tablet RxNorm: 355627 1 Tablet(s) PO daily 09/15/2016 09/24/2016 Inactive Levaquin 500 mg tablet RxNorm: 031211 1 Tablet(s) PO daily 09/15/2016 09/14/2016 Inactive prednisone 20 mg tablet RxNorm: 973270 1 Tablet(s) PO BID 09/15/2016 09/19/2016 Inactive amoxicillin 500 mg tablet RxNorm: 886760 1 Tablet(s) PO BID 08/20/2016 08/29/2016 Inactive Augmentin 875 mg-125 mg tablet RxNorm: 900672 1 Tablet(s) PO BID 04/23/2016 04/28/2016 Inactive Zyrtec-D 5 mg-120 mg tablet,extended release RxNorm: 8161909 1 Tablet(s) PO BID as needed 01/31/2016 10/08/2016 Inactive Flonase 50 mcg/actuation nasal spray,suspension RxNorm: 3790125 1 [place] NASAL BID 01/08/2016 01/22/2016 Inactive Flonase 50 mcg/actuation nasal spray,suspension RxNorm: 7121341 1 [place] NASAL BID 01/08/2016 01/07/2016 Inactive 1 spray each nare x 5 days Zithromax Z-Surya 250 mg tablet RxNorm: 108148 Tablet(s) PO 01/08/2016 01/30/2016 Inactive Zyrtec-D 5 mg-120 mg tablet,extended release RxNorm: 8465471 1 Tablet(s) PO BID as needed 01/08/2016 01/30/2016 Inactive Augmentin 875 mg-125 mg tablet RxNorm: 040682 1 Tablet(s) PO BID 10/08/2015 10/17/2015 Inactive Augmentin 875 mg-125 mg tablet RxNorm: 446189 1 Tablet(s) PO BID 10/08/2015 10/07/2015 Inactive prednisone 20 mg tablet RxNorm: 466135 1 Tablet(s) PO BID 08/01/2015 08/05/2015 Inactive prednisone 20 mg tablet RxNorm: 505113 1 Tablet(s) PO BID 08/01/2015 07/31/2015 Inactive Kenalog 40 mg/mL suspension for injection RxNorm: 8727290 Milliliter(s) Inj 07/30/2015 07/30/2015 Inactive Zyrtec-D 5 mg-120 mg tablet,extended release RxNorm: 7215564 1 Tablet(s) PO BID as needed 07/30/2015 01/07/2016 Inactive Augmentin 875 mg-125 mg tablet RxNorm: 793960 1 Tablet(s) PO BID 07/30/2015 08/05/2015 Inactive Kenalog 40 mg/mL suspension for injection RxNorm: 1574073 1 Milliliter(s) Inj 03/22/2015 03/22/2015 Inactive Flonase 50 mcg/actuation Nasal [place] RxNorm: 0917366 1 [place] NASAL 07/12/2012 07/11/2012 Inactive 1 spray each nare x 5 days Flonase 50 mcg/actuation Nasal [place] RxNorm: 1436232 1 [place] NASAL 07/12/2012 07/16/2012 Inactive 1 spray each nare x 5 days cefdinir 300 mg capsule RxNorm: 894303 1 Capsule(s) PO BID 07/12/2012 07/18/2012 Inactive cefdinir 300 mg capsule RxNorm: 863403 1 Capsule(s) PO BID 07/12/2012 07/11/2012 Inactive Tamiflu 75 mg capsule RxNorm: 862326 1 Capsule(s) PO BID 06/20/2012 06/24/2012 Inactive Tamiflu 75 mg capsule RxNorm: 603071 1 Capsule(s) PO BID 06/20/2012 06/19/2012 Inactive Diflucan 150 mg tablet RxNorm: 459195 1 Tablet(s) PO daily 04/21/2012 05/04/2012 Inactive nystatin 100,000 unit/g Topical Cream RxNorm: 967137 1 Application TOP TID 04/13/2012 05/02/2012 Inactive one application to groin tid Diflucan 150 mg tablet RxNorm: 259045 1 Tablet(s) PO daily 04/04/2012 04/06/2012 Inactive nystatin 100,000 unit/g Topical Cream RxNorm: 925394 1 Application TOP TID 04/04/2012 04/03/2012 Inactive one application to groin tid x 10 day nystatin 100,000 unit/g Topical Cream RxNorm: 197514 1 Application TOP TID 04/04/2012 04/12/2012 Inactive one application to groin tid x 10 day Diflucan 150 mg tablet RxNorm: 910886 1 Tablet(s) PO daily 03/23/2012 03/22/2012 Inactive Diflucan 150 mg tablet RxNorm: 451290 1 Tablet(s) PO daily 03/23/2012 03/29/2012 Inactive Rocephin 1 gram Solution for Injection RxNorm: 346418 Inj 03/18/2012 03/18/2012 Inactive Augmentin 500 mg-125 mg tablet RxNorm: 739358 1 Tablet(s) PO TID 03/11/2012 03/10/2012 Inactive Augmentin 500 mg-125 mg tablet RxNorm: 872819 1 Tablet(s) PO TID 03/11/2012 03/17/2012 Inactive Kenalog 40 mg/mL Susp for Injection RxNorm: 9081788 1 Milliliter(s) Inj 07/02/2011 07/02/2011 Inactive Rocephin 500 mg Solution for Injection RxNorm: 304319 1 Milliliter(s) Inj 07/02/2011 07/02/2011 Inactive Bactrim DS 800 mg-160 mg Tab RxNorm: 069557 1 Tablet(s) PO BID 06/30/2011 07/09/2011 Inactive Aspirin For Children 81 mg Chewable Tab RxNorm: 961980 1 Tablet(s) PO daily No Start Date Active multivitamin Oral RxNorm: Oral No Start Date Active omeprazole 40 mg Cap, Delayed Release RxNorm: 973835 1 Capsule(s) PO PRN No Start Date Active Zithromax 500 mg tablet RxNorm: 4515526 2 Tablet(s) PO daily No Start Date 01/30/2016 Inactive Zyrtec-D 5 mg-120 mg 12 hr Tab RxNorm: 5161319 1 Tablet(s) PO daily No Start Date 07/29/2015 Inactive Medication Administered Medication Codes Instructions Start Date Status Kenalog 40 mg/mL suspension for injection RxNorm: 2597100 1Milliliter 04/05/2017 No longer Active Kenalog 40 mg/mL suspension for injection RxNorm: 8499401 1Milliliter 02/24/2017 No longer Active Kenalog 40 mg/mL suspension for injection RxNorm: 5243046 1Milliliter 09/16/2016 No longer Active Kenalog 40 mg/mL suspension for injection RxNorm: 8980977 Milliliter 07/30/2015 No longer Active Kenalog 40 mg/mL suspension for injection RxNorm: 3822526 1Milliliter 03/22/2015 No longer Active Rocephin 1 gram Solution for Injection RxNorm: 882557 03/18/2012 No longer Active Rocephin 500 mg Solution for Injection RxNorm: 604185 1Milliliter 07/02/2011 No longer Active Kenalog 40 mg/mL Susp for Injection RxNorm: 2088369 1Milliliter 07/02/2011 No longer Active Immunizations Vaccine Codes Date Status Tetanus, Diptheria, Pertussis Unknown 05/23/2010 completed Assessments Condition Codes Effective Dates Allergic contact dermatitis due to plants, except food ICD-10: L23.7 ICD-9: 692.6 04/05/2017 Acute recurrent maxillary sinusitis ICD-10: J01.01 ICD-9: 461.0 03/22/2017 Other acute sinusitis ICD-10: J01.80 ICD-9: 461.8 02/24/2017 Other allergic rhinitis ICD-10: J30.89 ICD-9: 477.8 02/24/2017 Acute laryngopharyngitis ICD-10: J06.0 ICD-9: 465.0 08/20/2016 Pain in right shoulder ICD-10: M25.511 ICD-9: 719.41 06/10/2016 Melanocytic nevi, unspecified ICD-10: D22.9 ICD-9: 216.9 02/07/2016 Other acute sinusitis ICD-10: J01.80 ICD-9: 461.9 01/08/2016 Encounter for general adult medical examination without abnormal findings ICD-10: Z00.00 ICD-9: V70.0 03/22/2015 Allergic rhinitis, unspecified ICD-10: J30.9 ICD-9: 477.9 03/22/2015 Influenza ICD-9: 487.1 06/20/2012 DYSURIA ICD-9: 788.1 03/18/2012 Screen for sexually transmitted diseases ICD-9: V74.5 03/18/2012 COUGH ICD-9: 786.2 06/30/2011 ACUTE SINUSITIS ICD-9: 461.9 06/30/2011 ESOPHAGEAL REFLUX ICD-9: 530.81 03/09/2011 Constipation ICD-9: 564.00 03/09/2011 Encounter for annual health examination ICD-9: V70.0 01/12/2011 Reason For Visit Reason For Visit Effective Dates Notes rash 04/05/2017 earache 03/22/2017 sinus congestion 02/24/2017 sore throat 08/20/2016 shoulder pain 06/10/2016 skin lesion 02/07/2016 sinus congestion 01/08/2016 cough 07/30/2015 well man exam (18-39 years) 03/22/2015 sinus congestion 06/20/2012 dysuria 03/18/2012 sinus congestion 06/30/2011 abdominal pain 03/09/2011 ~generic 01/12/2011 new patient - transfer from Dr. Francisco Results Observation Observation Code Item Item Code Result Date C RAP A SC 2933840 Strep A Negative 08/20/2016 GC/CHL PRB 9241016 SOURCE CASSANDRA UNKNOWN 03/19/2012 GC/CHL PRB 9570282 CHLM PROBE NEG 03/19/2012 GC/CHL PRB 8736886 GC PROBE NEG 03/19/2012 URINALYSIS NONAUTO W/O SCOPE 06894 Specific [place] 1.010 DateTime(Free Text in Aprima) URINALYSIS NONAUTO W/O SCOPE 16605 PH 6.5 DateTime(Free Text in Aprima) URINALYSIS NONAUTO W/O SCOPE 46309 GLUCOSE neg DateTime(Free Text in Aprima) URINALYSIS NONAUTO W/O SCOPE 69300 Protein neg DateTime(Free Text in Aprima) URINALYSIS NONAUTO W/O SCOPE 14526 Blood neg DateTime(Free Text in Apr) URINALYSIS NONAUTO W/O SCOPE 58962 Bilirubin neg DateTime(Free Text in Aprima) URINALYSIS NONAUTO W/O SCOPE 28634 Ketones neg DateTime(Free Text in Aprima) URINALYSIS NONAUTO W/O SCOPE 82802 Urobilinogen neg DateTime(Free Text in Aprima) URINALYSIS NONAUTO W/O SCOPE 38631 Nitrite neg DateTime(Free Text in Aprima) URINALYSIS NONAUTO W/O SCOPE 92164 Leukocytes neg DateTime(Free Text in ) Review of Systems System Result Effective Dates Constitutional No recent illness 04/05/2017 Constitutional No [...] CPT-4: J3301 02/24/2017 THER/PROPH/DIAG INJ SC/IM CPT-4: 49567 09/16/2016 TRIAMCINOLONE ACET INJ NOS CPT-4: J3301 09/16/2016 TRIAMCINOLONE ACET INJ NOS CPT-4: J3301 07/30/2015 TRIAMCINOLONE ACET INJ NOS CPT-4: J3301 03/22/2015 ROCEPHIN, PER 250 MG CPT- 4: J0696 03/18/2012 URINALYSIS NONAUTO W/O SCOPE CPT-4: 09632 03/17/2012 ROCEPHIN, PER 250 MG CPT- 4: J0696 06/30/2011 TRIAMCINOLONE ACET INJ NOS CPT-4: J3301 06/30/2011 Vital Signs Date Vital 04/05/2017 Blood Pressure 1: 126/68 Code: 8480-6 BMI: 22.6 Code: 50802-0 Heart Rate 1: 80 bpm Height: 6'2" SpO2: 98% Weight: 176 lbs 03/22/2017 Blood Pressure 1: 120/72 Code: 8480-6 BMI: 22.5 Code: 16619-7 Heart Rate 1: 82 bpm Height: 6'2" SpO2: 98% Temperature: 36.8 (C) / 98.3 (F) Weight: 175 lbs 02/24/2017 Blood Pressure 1: 120/62 Code: 8480-6 BMI: 22.5 Code: 36363-4 Heart Rate 1: 84 bpm Height: 6'2" SpO2: 98% Weight: 175 lbs 08/20/2016 Blood Pressure 1: 126/78 Code: 8480-6 BMI: 24.1 Code: 18126-0 Heart Rate 1: 84 bpm Height: 6'2" SpO2: 98% Temperature: 37.1 (C) / 98.8 (F) Weight: 188 lbs 06/10/2016 Blood Pressure 1: 124/62 Code: 8480-6 BMI: 24.4 Code: 95692-7 Heart Rate 1: 85 bpm Height: 6'2" SpO2: 98% Weight: 190 lbs 02/07/2016 Blood Pressure 1: 128/72 Code: 8480-6 BMI: 23.6 Code: 98907-4 Heart Rate 1: 78 bpm Height: 6'2" SpO2: 96% Weight: 184 lbs 01/08/2016 Blood Pressure 1: 108/70 Code: 8480-6 BMI: 23.4 Code: 46181-6 Heart Rate 1: 84 bpm Height: 6'2" SpO2: 96% Weight: 182 lbs 07/30/2015 Blood Pressure 1: 110/64 Code: 8480-6 BMI: 22.6 Code: 20431-7 Heart Rate 1: 78 bpm Height: 6'2" SpO2: 98% Weight: 176 lbs 03/22/2015 Blood Pressure 1: 126/80 Code: 8480-6 BMI: 24.0 Code: 95678-5 Heart Rate 1: 76 bpm Height: 6'2" SpO2: 98% Weight: 187 lbs 06/20/2012 Blood Pressure 1: 110/76 Code: 8480-6 Heart Rate 1: 100 bpm Temperature: 38.7 (C) / 101.7 (F) Weight: 169 lbs 03/18/2012 Blood Pressure 1: 132/70 Code: 8480-6 Heart Rate 1: 80 bpm Weight: 160 lbs 06/30/2011 Blood Pressure 1: 110/72 Code: 8480-6 BMI: 23.9 Code: 48120-3 Heart Rate 1: 72 bpm Height: 6'2" Respiratory Rate: 20 bpm Weight: 186 lbs 03/09/2011 Blood Pressure 1: 96/58 Code: 8480-6 BMI: 23.2 Code: 93519- 5 Heart Rate 1: 80 bpm Height: 6'2" Respiratory Rate: 16 bpm Weight: 183 lbs 01/12/2011 Blood Pressure 1: 126/80 Code: 8480-6 BMI: 23.5 Code: 44953-4 Heart Rate 1: 82 bpm Height: 6'2" Respiratory Rate: 16 bpm Weight: 183 lbs Functional Status No Functional Status data History of Present Illness Symptom Name Status Result Effective Date Notes rash Location-Head/Neck on the left cheek 04/05/2017 None rash Location-Head/Neck on the left rastafarian 04/05/2017 None rash Location-Head/Neck on the forehead [...] Performer Location Codes Date EST. PATIENT, LEVEL IV Diagnosis: Allergic contact dermatitis due to plants, except food[ICD10: L23.7] Cherry Riggs MD, [facility] CPT-4: 38083 04/05/2017 ([id number]) 75079 EST. PATIENT, LEVEL III Diagnosis: Acute recurrent maxillary sinusitis[ICD10: J01.01] Gin Riggs MD, [facility] CPT-4: 90348 03/22/2017 [id number] EST. PATIENT, LEVEL IV Diagnosis: Other acute sinusitis[ICD10: J01.80] Diagnosis: Other allergic rhinitis[ICD10: J30.89] Cherry Riggs MD, [facility] CPT- 4: 84147 02/24/2017 ([id number]) 83696 EST. PATIENT, LEVEL III Diagnosis: Acute laryngopharyngitis[ICD10: J06.0] Gin Riggs MD, [facility] CPT-4: 57607 08/20/2016 99497 EST. PATIENT, LEVEL III Diagnosis: Pain in right shoulder[ICD10: M25.511] Cherry Riggs MD, [facility] CPT- 4: 70378 06/10/2016 ([id number]) 71409 EST. PATIENT, LEVEL II Diagnosis: Melanocytic nevi, unspecified[ICD10: D22.9] Gin Riggs MD, [facility] CPT-4: 99422 02/07/2016 71085 EST. PATIENT, LEVEL III Diagnosis: Other acute sinusitis[ICD10: J01.80] Diagnosis: Other allergic rhinitis[ICD10: J30.89] Cherry Riggs MD, [facility] CPT- 4: 67889 01/08/2016 ([id number]) 63035 EST. PATIENT, LEVEL III Diagnosis: Acute recurrent maxillary sinusitis[ICD10: J01.01] Gin Riggs MD, [facility] CPT-4: 53074 07/30/2015 ([id number]) PREV VISIT EST AGE 18-39 Diagnosis: Encounter for general adult medical examination without abnormal findings[ICD10: Z00.00] Diagnosis: Allergic rhinitis, unspecified[ICD10: J30.9] Gin Riggs MD, [facility] CPT-4: 52857 03/22/2015 ([id number]) 68620 EST. PATIENT, LEVEL III Diagnosis: Influenza[ICD9: 487.1] Gin Riggs MD, [facility] CPT-4: 29145 06/20/2012 [id number] EST. PATIENT, LEVEL II Diagnosis: DYSURIA[ICD9: 788.1] Diagnosis: Screen for sexually transmitted diseases[ICD9: V74.5] Gin Riggs MD, [facility] CPT-4: 40373 03/18/2012 ([id number]) 75627 EST. PATIENT, LEVEL III Diagnosis: ACUTE SINUSITIS[ICD9: 461.9] Gin Riggs MD, [facility] CPT-4: 70146 06/30/2011 [id number] EST. PATIENT, LEVEL IV Diagnosis: ESOPHAGEAL REFLUX[ICD9: 530.81] Diagnosis: Constipation[ICD9: 564.00] Claire Riggs MD, [facility] CPT-4: 87008 03/09/2011 OFFICE VISIT, NEW - LEVEL 3 Diagnosis: Encounter for annual health examination[ICD9: V70.0] Diagnosis: Esophageal reflux[ICD9: 530.81] Claire Riggs MD, [facility] CPT-4: 65683 01/12/2011 Plan of Care Planned Activity Notes Codes Status Date Visit Plan: Poison Ruthy - pt is to use topical treatments as directed. Pt is cleanse clothing in hot water with soap, and call if symptoms do not improve or if they worsen. 04/05/2017 Appointment: Cherry Wagoner WPtel: [address] [place], [place] [phone] (10 min) Simple 04/05/2017 Patient Education: Patient [...] Appointment: Gin Dooley WPtel: [facility] (15 min) Moderate 03/22/2017 Patient Education: Patient [...] allergy spray. 02/24/2017 Appointment: Cherry Wagoner WPtel: [facility] (15 min) Moderate 02/24/2017 Patient Education: Patient [...] fever/discomfort. 08/20/2016 [facility]ment[facility] [phone] [phone] (10 min) Simple 08/20/2016 Patient Education: [...] evaluation 02/07/2016 [facility] [phone] [phone] (30 min) Complex 02/07/2016 Patient Education: Patient Medication Summary Completed 02/07/2016 Care Plan: Referral Order SNOMED-CT : [id number] Pending 02/07/2016 Visit Plan: Sinusitis - Pt [...] the office 03/22/2015 Appointment: Gin Dooley WPtel: [address] [place] [address] Physical 03/22/2015 Patient Education: Patient Medication Summary [...] any worse. 06/20/2012 Appointment: Gin Dooley WPtel: [address] [place], [place] [phone] [facility] 06/20/2012 Patient Education: Patient Medication Summary [...] Appointment: Gin Dooley WPtel: [facility] [place] [phone] Other 03/18/2012 Patient Education: Patient Medication Summary Completed 03/18/2012 Appointment: Claire Riggs WPtel: [facility] Lab Draw 03/17/2012 Patient Education: Patient [...] Appointment: Gin Dooley WPtel: [facility] [place] [address] Other 06/30/2011 Patient Education: Patient Medication Summary [...] at 3:30pm. 03/09/2011 Appointment: Claire Riggs WPtel: [facility]5 [facility] Other 03/09/2011 Patient Education: Patient [...] program. 01/12/2011 Appointment: [facility] [phone] [phone] [place] New Patient 01/12/2011 Patient Education: Patient [...] is for March 25 at 3:30pm. . Poison Ruthy - pt is to [...]
--- OUTSIDE RECORDS SUMMARY | 2018-11-22 07:35 | XMS REPORT | CCD ---
Author Author [facility]gs Organization [facility] Address [address] [place] [address] Phone Care Team Providers Care Material Processor Name Role Phone Claire Riggs PP Unavailable CCM Unavailable Summary Purpose Interface Exchange Insurance Providers Payer name Policy type / Coverage type Covered democrat ID Effective Begin Date Effective End Date [facility] [id number] Unknown Family history Mother Diagnosis Age At Onset Cancer Unknown Brother Diagnosis Age At Onset No Family Disease Entered N/A Grandmother Diagnosis Age At Onset Cancer Unknown Father Diagnosis Age At Onset No Family Disease Entered N/A Social History Social History Element Codes Description Effective Dates Marital status Unknown 01/12/2011 Employment Unknown 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 01/12/[address]: 916216324 Never smoker 01/12/[address]: 687436 Currently drinks alcohol socially 01/12/2011 Has the [...] Zyrtec-D 5 mg-120 mg tablet,extended release RxNorm: 8275633 1 Tablet(s) PO BID as needed 06/15/2017 No Stop Date Active Zyrtec-D 5 mg-120 mg tablet,extended release RxNorm: 6767012 1 Tablet(s) PO BID as needed 05/11/2017 06/13/2017 Inactive prednisone 10 mg tablet RxNorm: 913462 Tablet(s) PO 04/05/2017 No Stop Date Active 6,5,4,3,2,1 Kenalog 40 mg/mL suspension for injection RxNorm: 9628728 1 Milliliter(s) Inj 04/05/2017 04/05/2017 Inactive Flonase 50 mcg/actuation nasal spray,suspension RxNorm: 9459050 1 [place] NASAL BID 04/01/2017 No Stop Date Active Augmentin 875 mg-125 mg tablet RxNorm: 273363 1 Tablet(s) PO BID 03/22/2017 03/28/2017 Inactive prednisone 20 mg tablet RxNorm: 129185 2 Tablet(s) PO daily 03/02/2017 03/06/2017 Inactive prednisone 20 mg tablet RxNorm: 840376 2 Tablet(s) PO daily 03/02/2017 03/01/2017 Inactive Zithromax Z-Surya 250 mg tablet RxNorm: 881428 1 Tablet(s) PO UD 02/24/2017 03/21/2017 Inactive Kenalog 40 mg/mL suspension for injection RxNorm: 3241239 1 Milliliter(s) Inj 02/24/2017 02/24/2017 Inactive Zyrtec-D 5 mg-120 mg tablet,extended release RxNorm: 5646350 1 Tablet(s) PO BID as needed 02/05/2017 05/10/2017 Inactive Zyrtec-D 5 mg-120 mg tablet,extended release RxNorm: 6853015 1 Tablet(s) PO BID as needed 12/01/2016 02/04/2017 Inactive Zyrtec-D 5 mg-120 mg tablet,extended release RxNorm: 8260059 1 Tablet(s) PO BID as needed 11/03/2016 11/30/2016 Inactive Zyrtec-D 5 mg-120 mg tablet,extended release RxNorm: 0208550 1 Tablet(s) PO BID as needed 10/09/2016 11/02/2016 Inactive Kenalog 40 mg/mL suspension for injection RxNorm: 6116547 1 Milliliter(s) Inj 09/16/2016 09/16/2016 Inactive Levaquin 500 mg tablet RxNorm: 447755 1 Tablet(s) PO daily 09/15/2016 09/24/2016 Inactive Levaquin 500 mg tablet RxNorm: 513759 1 Tablet(s) PO daily 09/15/2016 09/14/2016 Inactive prednisone 20 mg tablet RxNorm: 804582 1 Tablet(s) PO BID 09/15/2016 09/19/2016 Inactive amoxicillin 500 mg tablet RxNorm: 273365 1 Tablet(s) PO BID 08/20/2016 08/29/2016 Inactive Augmentin 875 mg-125 mg tablet RxNorm: 182823 1 Tablet(s) PO BID 04/23/2016 04/28/2016 Inactive Zyrtec-D 5 mg-120 mg tablet,extended release RxNorm: 6631691 1 Tablet(s) PO BID as needed 01/31/2016 10/08/2016 Inactive Flonase 50 mcg/actuation nasal spray,suspension RxNorm: 9539715 1 [place] NASAL BID 01/08/2016 01/22/2016 Inactive Flonase 50 mcg/actuation nasal spray,suspension RxNorm: 8547982 1 [place] NASAL BID 01/08/2016 01/07/2016 Inactive 1 spray each nare x 5 days Zithromax Z-Surya 250 mg tablet RxNorm: 845051 Tablet(s) PO 01/08/2016 01/30/2016 Inactive Zyrtec-D 5 mg-120 mg tablet,extended release RxNorm: 4996924 1 Tablet(s) PO BID as needed 01/08/2016 01/30/2016 Inactive Augmentin 875 mg-125 mg tablet RxNorm: 302363 1 Tablet(s) PO BID 10/08/2015 10/17/2015 Inactive Augmentin 875 mg-125 mg tablet RxNorm: 113616 1 Tablet(s) PO BID 10/08/2015 10/07/2015 Inactive prednisone 20 mg tablet RxNorm: 607148 1 Tablet(s) PO BID 08/01/2015 08/05/2015 Inactive prednisone 20 mg tablet RxNorm: 762816 1 Tablet(s) PO BID 08/01/2015 07/31/2015 Inactive Kenalog 40 mg/mL suspension for injection RxNorm: 7051593 Milliliter(s) Inj 07/30/2015 07/30/2015 Inactive Zyrtec-D 5 mg-120 mg tablet,extended release RxNorm: 5736483 1 Tablet(s) PO BID as needed 07/30/2015 01/07/2016 Inactive Augmentin 875 mg-125 mg tablet RxNorm: 412174 1 Tablet(s) PO BID 07/30/2015 08/05/2015 Inactive Kenalog 40 mg/mL suspension for injection RxNorm: 8564611 1 Milliliter(s) Inj 03/22/2015 03/22/2015 Inactive Flonase 50 mcg/actuation Nasal [place] RxNorm: 5982958 1 [place] NASAL 07/12/2012 07/11/2012 Inactive 1 spray each nare x 5 days Flonase 50 mcg/actuation Nasal [place] RxNorm: 1971470 1 [place] NASAL 07/12/2012 07/16/2012 Inactive 1 spray each nare x 5 days cefdinir 300 mg capsule RxNorm: 251520 1 Capsule(s) PO BID 07/12/2012 07/18/2012 Inactive cefdinir 300 mg capsule RxNorm: 897734 1 Capsule(s) PO BID 07/12/2012 07/11/2012 Inactive Tamiflu 75 mg capsule RxNorm: 091148 1 Capsule(s) PO BID 06/20/2012 06/24/2012 Inactive Tamiflu 75 mg capsule RxNorm: 381961 1 Capsule(s) PO BID 06/20/2012 06/19/2012 Inactive Diflucan 150 mg tablet RxNorm: 422772 1 Tablet(s) PO daily 04/21/2012 05/04/2012 Inactive nystatin 100,000 unit/g Topical Cream RxNorm: 611453 1 Application TOP TID 04/13/2012 05/02/2012 Inactive one application to groin tid Diflucan 150 mg tablet RxNorm: 197468 1 Tablet(s) PO daily 04/04/2012 04/06/2012 Inactive nystatin 100,000 unit/g Topical Cream RxNorm: 861903 1 Application TOP TID 04/04/2012 04/03/2012 Inactive one application to groin tid x 10 day nystatin 100,000 unit/g Topical Cream RxNorm: 840397 1 Application TOP TID 04/04/2012 04/12/2012 Inactive one application to groin tid x 10 day Diflucan 150 mg tablet RxNorm: 066121 1 Tablet(s) PO daily 03/23/2012 03/22/2012 Inactive Diflucan 150 mg tablet RxNorm: 819134 1 Tablet(s) PO daily 03/23/2012 03/29/2012 Inactive Rocephin 1 gram Solution for Injection RxNorm: 967807 Inj 03/18/2012 03/18/2012 Inactive Augmentin 500 mg-125 mg tablet RxNorm: 657855 1 Tablet(s) PO TID 03/11/2012 03/10/2012 Inactive Augmentin 500 mg-125 mg tablet RxNorm: 245941 1 Tablet(s) PO TID 03/11/2012 03/17/2012 Inactive Kenalog 40 mg/mL Susp for Injection RxNorm: 7652546 1 Milliliter(s) Inj 07/02/2011 07/02/2011 Inactive Rocephin 500 mg Solution for Injection RxNorm: 879347 1 Milliliter(s) Inj 07/02/2011 07/02/2011 Inactive Bactrim DS 800 mg-160 mg Tab RxNorm: 574287 1 Tablet(s) PO BID 06/30/2011 07/09/2011 Inactive Aspirin For Children 81 mg Chewable Tab RxNorm: 812217 1 Tablet(s) PO daily No Start Date Active multivitamin Oral RxNorm: Oral No Start Date Active omeprazole 40 mg Cap, Delayed Release RxNorm: 080880 1 Capsule(s) PO PRN No Start Date Active Zithromax 500 mg tablet RxNorm: 0857450 2 Tablet(s) PO daily No Start Date 01/30/2016 Inactive Zyrtec-D 5 mg-120 mg 12 hr Tab RxNorm: 5483651 1 Tablet(s) PO daily No Start Date 07/29/2015 Inactive Medication Administered Medication Codes Instructions Start Date Status Kenalog 40 mg/mL suspension for injection RxNorm: 5637973 1Milliliter 04/05/2017 No longer Active Kenalog 40 mg/mL suspension for injection RxNorm: 8351752 1Milliliter 02/24/2017 No longer Active Kenalog 40 mg/mL suspension for injection RxNorm: 9478250 1Milliliter 09/16/2016 No longer Active Kenalog 40 mg/mL suspension for injection RxNorm: 6461170 [place] 07/30/2015 No longer Active Kenalog 40 mg/mL suspension for injection RxNorm: 2305887 1Milliliter 03/22/2015 No longer Active Rocephin 1 gram Solution for Injection RxNorm: 073322 03/18/2012 No longer Active Rocephin 500 mg Solution for Injection RxNorm: 049945 1Milliliter 07/02/2011 No longer Active Kenalog 40 mg/mL Susp for Injection RxNorm: 4882384 1Milliliter 07/02/2011 No longer Active Immunizations Vaccine [...] Code Result Date C RAP A SC 5230859 Strep A Negative 08/20/2016 GC/CHL PRB 0854019 SOURCE CASSANDRA UNKNOWN 03/19/2012 GC/CHL PRB 5546258 CHLM PROBE NEG 03/19/2012 GC/CHL PRB 4993743 GC PROBE NEG 03/19/2012 URINALYSIS NONAUTO W/O SCOPE 58600 Specific [place] 1.010 DateTime(Free Text in Aprima) URINALYSIS NONAUTO W/O SCOPE 09057 PH 6.5 DateTime(Free Text in Aprima) URINALYSIS NONAUTO W/O SCOPE 64629 GLUCOSE neg DateTime(Free Text in Aprima) URINALYSIS NONAUTO W/O SCOPE 60978 Protein neg DateTime(Free Text in Aprima) URINALYSIS NONAUTO W/O SCOPE 24047 Blood neg DateTime(Free Text in Aprima) URINALYSIS NONAUTO W/O SCOPE 69758 Bilirubin neg DateTime(Free Text in Aprima) URINALYSIS NONAUTO W/O SCOPE 56509 Ketones neg DateTime(Free Text in Aprima) URINALYSIS NONAUTO W/O SCOPE 14816 Urobilinogen neg DateTime(Free Text in Aprima) URINALYSIS NONAUTO W/O SCOPE 07483 Nitrite neg DateTime(Free Text in Aprima) URINALYSIS NONAUTO W/O SCOPE 47281 Leukocytes neg DateTime(Free Text in Apr) Review [...] CPT-4: J3301 02/24/2017 THER/PROPH/DIAG INJ SC/IM CPT-4: 50954 09/16/2016 TRIAMCINOLONE ACET INJ NOS CPT-4: J3301 09/16/2016 TRIAMCINOLONE ACET INJ NOS CPT-4: J3301 07/30/2015 TRIAMCINOLONE ACET INJ NOS CPT-4: J3301 03/22/2015 ROCEPHIN, PER 250 MG CPT- 4: J0696 03/18/2012 URINALYSIS NONAUTO W/O SCOPE CPT-4: 04286 03/17/2012 ROCEPHIN, PER 250 MG CPT- 4: J0696 06/30/2011 TRIAMCINOLONE ACET INJ NOS CPT-4: J3301 06/30/2011 Vital Signs Date Vital 04/05/2017 Blood Pressure 1: 126/68 Code: 8480-6 BMI: 22.6 Code: 59931-9 Heart Rate 1: 80 bpm Height: 6'2" SpO2: 98% Weight: 176 lbs 03/22/2017 Blood Pressure 1: 120/72 Code: 8480-6 BMI: 22.5 Code: 53026-9 Heart Rate 1: 82 bpm Height: 6'2" SpO2: 98% Temperature: 36.8 (C) / 98.3 (F) Weight: 175 lbs 02/24/2017 Blood Pressure 1: 120/62 Code: 8480-6 BMI: 22.5 Code: 52843-9 Heart Rate 1: 84 bpm Height: 6'2" SpO2: 98% Weight: 175 lbs 08/20/2016 Blood Pressure 1: 126/78 Code: 8480-6 BMI: 24.1 Code: 56846-8 Heart Rate 1: 84 bpm Height: 6'2" SpO2: 98% Temperature: 37.1 (C) / 98.8 (F) Weight: 188 lbs 06/10/2016 Blood Pressure 1: 124/62 Code: 8480-6 BMI: 24.4 Code: 95384-4 Heart Rate 1: 85 bpm Height: 6'2" SpO2: 98% Weight: 190 lbs 02/07/2016 Blood Pressure 1: 128/72 Code: 8480-6 BMI: 23.6 Code: 05301-7 Heart Rate 1: 78 bpm Height: 6'2" SpO2: 96% Weight: 184 lbs 01/08/2016 Blood Pressure 1: 108/70 Code: 8480-6 BMI: 23.4 Code: 02531-1 Heart Rate 1: 84 bpm Height: 6'2" SpO2: 96% Weight: 182 lbs 07/30/2015 Blood Pressure 1: 110/64 Code: 8480-6 BMI: 22.6 Code: 00068-9 Heart Rate 1: 78 bpm Height: 6'2" SpO2: 98% Weight: 176 lbs 03/22/2015 Blood Pressure 1: 126/80 Code: 8480-6 BMI: 24.0 Code: 27288-5 Heart Rate 1: 76 bpm Height: 6'2" SpO2: 98% Weight: 187 lbs 06/20/2012 Blood Pressure 1: 110/76 Code: 8480-6 Heart Rate 1: 100 bpm Temperature: 38.7 (C) / 101.7 (F) Weight: 169 lbs 03/18/2012 Blood Pressure 1: 132/70 Code: 8480-6 Heart Rate 1: 80 bpm Weight: 160 lbs 06/30/2011 Blood Pressure 1: 110/72 Code: 8480-6 BMI: 23.9 Code: 62297-8 Heart Rate 1: 72 bpm Height: 6'2" Respiratory Rate: 20 bpm Weight: 186 lbs 03/09/2011 Blood Pressure 1: 96/58 Code: 8480-6 BMI: 23.2 Code: 37050- 5 Heart Rate 1: 80 bpm Height: 6'2" Respiratory Rate: 16 bpm Weight: 183 lbs 01/12/2011 Blood Pressure 1: 126/80 Code: 8480-6 BMI: 23.5 Code: 49152-0 Heart Rate 1: 82 bpm Height: 6'2" Respiratory Rate: 16 bpm Weight: 183 lbs Functional Status No Functional Status data History of Present Illness Symptom Name Status Result Effective Date Notes rash Location-Head/Neck on the left cheek 04/05/2017 None rash Location-Head/Neck on the left taoism 04/05/2017 None rash Location-Head/Neck on the forehead [...] plants, except food[ICD10: L23.7] Cherry Riggs MD, [facility] CPT-4: 16228 04/05/2017 ([id number]) 34350 EST. PATIENT, LEVEL III Diagnosis: Acute recurrent maxillary sinusitis[ICD10: J01.01] Gin Riggs MD, [facility] CPT-4: 33975 03/22/2017 40634 EST. PATIENT, LEVEL IV Diagnosis: Other acute sinusitis[ICD10: J01.80] Diagnosis: Other allergic rhinitis[ICD10: J30.89] Cherry Riggs MD, [facility] CPT- 4: 49862 02/24/2017 ([id number]) 72647 EST. PATIENT, LEVEL III Diagnosis: Acute laryngopharyngitis[ICD10: J06.0] Gin Riggs MD, [facility] CPT-4: 23253 08/20/2016 72424 EST. PATIENT, LEVEL III Diagnosis: Pain in right shoulder[ICD10: M25.511] Cherry Riggs MD, [facility] CPT- 4: 04578 06/10/2016 ([id number]) 10500 EST. PATIENT, LEVEL II Diagnosis: Melanocytic nevi, unspecified[ICD10: D22.9] Gin Riggs MD, [facility] CPT-4: 93368 02/07/2016 37002 EST. PATIENT, LEVEL III Diagnosis: Other acute sinusitis[ICD10: J01.80] Diagnosis: Other allergic rhinitis[ICD10: J30.89] Cherry Riggs MD, [facility] CPT- 4: 35741 01/08/2016 ([id number]) 76338 EST. PATIENT, LEVEL III Diagnosis: Acute recurrent maxillary sinusitis[ICD10: J01.01] Gin Riggs MD, [facility] CPT-4: 04222 07/30/2015 ([id number]) PREV VISIT EST AGE 18-39 Diagnosis: Encounter for general adult medical examination without abnormal findings[ICD10: Z00.00] Diagnosis: Allergic rhinitis, unspecified[ICD10: J30.9] Gin Riggs MD, [facility] CPT-4: 01893 03/22/2015 ([id number]) 21187 EST. PATIENT, LEVEL III Diagnosis: Influenza[ICD9: 487.1] Gin Riggs MD, [facility] CPT-4: 89119 06/20/2012 00820 EST. PATIENT, LEVEL II Diagnosis: DYSURIA[ICD9: 788.1] Diagnosis: Screen for sexually transmitted diseases[ICD9: V74.5] Gin Riggs MD, [facility] CPT-4: 62082 03/18/2012 ([id number]) 66085 EST. PATIENT, LEVEL III Diagnosis: ACUTE SINUSITIS[ICD9: 461.9] Gin Riggs MD, [facility] CPT-4: 72175 06/30/2011 98803 EST. PATIENT, LEVEL IV Diagnosis: ESOPHAGEAL REFLUX[ICD9: 530.81] Diagnosis: Constipation[ICD9: 564.00] Claire Riggs MD, [facility] CPT-4: 28207 03/09/2011 OFFICE VISIT, NEW - LEVEL 3 Diagnosis: Encounter for annual health examination[ICD9: V70.0] Diagnosis: Esophageal reflux[ICD9: 530.81] Claire Riggs MD, [facility] CPT-4: 88257 01/12/2011 Plan of Care Planned Activity Notes Codes Status Date Visit Plan: Poison [place] - pt is to use topical treatments as directed. Pt is cleanse clothing in hot water with soap, and call if symptoms do not improve or if they worsen. 04/05/2017 Appointment: Cheryr Wagoner WPtel: [phone] [facility] [place] (10 min) Simple 04/05/2017 Patient [...] spray. 03/22/2017 Appointment: Gin Dooley WPtel: [phone] [phone] [place] (15 min) Moderate 03/22/2017 Patient [...] spray. 02/24/2017 Appointment: Cherry Wagoner WPtel: [phone] [facility] [place] (15 min) Moderate 02/24/2017 Patient [...] for fever/discomfort. 08/20/2016 Appointment: Gin Dooley WPtel: [phone] [phone] (10 min) Simple 08/20/2016 Patient Education: [...] for evaluation 02/07/2016 Appointment: Gin Dooley WPtel: [phone] [phone] (30 min) Complex 02/07/2016 Patient Education: Patient Medication Summary Completed 02/07/2016 Care Plan: Referral Order SNOMED-CT : [id number] Pending 02/07/2016 Visit Plan: Sinusitis - Pt [...] Gin Dooley WPtel: [phone] [facility] 03/22/2015 Patient Education: Patient Medication Summary [...] Gin Dooley WPtel: [phone] [facility] 06/20/2012 Patient Education: Patient Medication Summary [...] of testing. 03/18/2012 Appointment: Gin Dooley WPtel: [address] [place] [address] Other 03/18/2012 Patient Education: Patient Medication Summary Completed 03/18/2012 Appointment: Claire Riggs WPtel: [address] [place] [address] Lab Draw 03/17/2012 Patient Education: Patient Medication [...] Gin Dooley WPtel: [facility] Other 06/30/2011 Patient Education: Patient Medication Summary [...] Claire Riggs WPtel: [facility] Other 03/09/2011 Patient Education: Patient [...] program. 01/12/2011 [phone] [facility] 01/12/2011 Patient Education: Patient [...]
--- NOTE | 2018-11-22 07:59 | Diagnostic Imaging Report ---
PATIENT HISTORY: Abdominal pain, low pelvic pain. TECHNIQUE: Frontal view of the chest. Supine and upright frontal views of the abdomen. COMPARISON: None FINDINGS: Lung volumes are normal. No focal consolidation is seen. There is no pleural effusion or pneumothorax. Decreased also is normal in size and contour. The cardiac pattern is nonspecific. There are a few mildly prominent loops of bowel without high-grade distention seen. No large collection of free air seen. Phleboliths are seen in the pelvis. IMPRESSION: 1. Nonspecific bowel gas pattern. No high-grade bowel distention is seen. 2. No acute pulmonary abnormality seen. Dictated by: Dictated on workstation # [id number]
--- NOTE | 2018-11-22 07:59 | Diagnostic Imaging Report ---
PROCEDURE: CT urinary tract, rule out kidney stone. TECHNIQUE: Multiple contiguous axial images were obtained through the abdomen and pelvis without the use of intravenous contrast. Auto Exposure Controls were utilized during the CT exam to meet ALARA standards for radiation dose reduction. INDICATION: Abdominal pain and low pelvic pain. COMPARISON: None FINDINGS: The lung bases are clear. The heart is normal in size. There is no pericardial effusion. The liver, spleen, pancreas, and adrenal glands appear normal. The right kidney appears normal with no hydronephrosis or obstructing calculi. The left kidney demonstrates a 5 mm calculus at the ureteropelvic junction without significant hydronephrosis seen. There is diverticulosis of the sigmoid colon with marked wall thickening and surrounding fat stranding consistent with diverticulitis. There is a small amount of extraluminal air. No fluid collection is seen. A small amount of free fluid is seen. There is fluid throughout the colon. The appendix appears normal. No acute osseous abnormality is seen. IMPRESSION: 1. Acute diverticulitis of the sigmoid colon with marked inflammatory changes and a small amount of extraluminal air. No drainable fluid collection is seen. 2. Calculus in the proximal left ureter at the ureteropelvic junction, without significant hydronephrosis. Dictated by: Dictated on workstation # [id number]
[2018-11-22] MEDS: metroNIDAZOLE 500MG/100ML IVPB 100 ML IV SCH ×3 (08:17→20:29)
--- NOTE | 2018-11-22 09:01 | Progress Note-Pre Operative ---
Pre-Operative Progress Note H&P Reviewed The H&P was reviewed, patient examined and no changes noted. Date Seen by Provider: Nov 22, 2018 Time Seen by Provider: 09:01 Date H&P Reviewed: Nov 22, 2018 Time H&P Reviewed: 09:01 Pre-Operative Diagnosis: LT PROXIMAL URETERAL STONE ROSIBEL DUENAS MD Nov 22, 2018 09:01
--- NOTE | 2018-11-22 09:08 | History & Physicial ---
History of Present Illness History of Present Illness Reason for visit/HPI PT REPORTS THAT HE HAS BEEN HAVING ABDOMINAL PAIN AND IT INCREASED EXTREMELY RAPIDLY WITH SEVERE LEFT LOWER ABDOMINAL PAIN CAUSING HIM TO PRESENT TO THE HOSPITAL FOR EVALUATION OF THE PAIN. HE REPORTS THAT HE DOES NOT DRINK MUCH WATER, AND HAS CHRONIC CONSTIPATION AND HAD NOT HAD A GOOD BOWEL MOVEMENT FOR SEVERAL DAYS PRIOR TO THIS INCIDENT OF ABDOMINAL PAIN . Date of Admission Nov 22, 2018 at 01:00 Date Seen by a Provider: Nov 22, 2018 Time Seen by a Provider: 09:00 Attending Physician Guillermina Riggs MD Admitting Physician Guillermina Riggs MD Consult DR. OLGUIN Allergies and Home Medications Allergies Coded Allergies: No Known Drug Allergies (Unverified , 11/28/10) Home Medications Atorvastatin Calcium 10 Mg Tablet, 10 MG PO HS, (Reported) Dicyclomine HCl 20 Mg Tablet, 20 MG PO TID PRN for STOMACH UPSET, (Reported) Fexofenadine/Pseudoephedrine 1 Each Tab.er.12h, 1 TAB PO DAILY PRN for ALLERGIES, (Reported) Fluticasone Propionate 16 Gm [place].susp, 1 SPRAY NS BID, (Reported) Patient Home Medication List Home Medication List Reviewed: Yes Past Dtezbwx-Wqnutw-Samvad Hx Patient Social History Marrital Status: Number of Children: 0 Number of living children: 0 Living Status: LIVES WITH SPOUSE IN THEIR HOME Employed/Student: employed Alcohol Use: Rarely Uses Number of Drinks Today: 0 Recreational Drug Use: No Smoking Status: Never a Smoker 2nd Hand Smoke Exposure: No Physical Abuse Screen: No Sexual Abuse: No Recent Foreign Travel: No Contact w/other who traveled: No Recent Hopitalizations: Yes Recent Infectious Disease Expo: No Seasonal Allergies Seasonal Allergies: No Surgeries Yes (EGD) Orthopedic Respiratory No Cardiovascular No Neurological No Reproductive System Hx Reproductive Disorders: No Genitourinary No Gastrointestinal Yes Irritable Bowel Musculoskeletal No Endocrine History of Endocrine Disorders: No HEENT History of HEENT Disorders: No Cancer No Psychosocial History of Psychiatric Problem: No Integumentary History of Skin or Integumenta: No Blood Transfusions History of Blood Disorders: No Reviewed Nursing Assessment Reviewed/Agree w Nursing PMH: Yes Family Medical History Significant Family History: Heart Disease, Cancer (BREAST CANCER), Other Conditions/Hx (IRRITABLE BOWEL SYNDROME - MATERNAL AUNT) Family Hx: FH: breast cancer 19 MOTHER Review of Systems Constitutional: No chills, No fever; malaise, weakness EENTM: No hearing loss, No hoarseness, No throat pain Respiratory: No cough, No dyspnea on exertion, No short of breath Cardiovascular: No chest pain, No palpitations Gastrointestinal: abdominal pain (LLQ), constipation, nausea Genitourinary: dysuria, frequency Musculoskeletal: no symptoms reported Skin: no symptoms reported Psychiatric/Neurological: No Symptoms Reported All Other Systems Reviewed Negative Unless Noted: Yes Physical Exam Vital Signs Vital Signs - First Documented 11/21/18 21:53 Temp 97.8 Pulse 88 Resp 18 B/P (MAP) 124/79 (94) Pulse Ox 96 O2 Delivery Room Air Capillary Refill : Less Than 3 Seconds Height, Weight, BMI Height: 6'2.00" Weight: 181lbs. 0.0oz. 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 OLGUIN INVOLVED IN THE CASE - HE WILL SEE PATIENT IN THE HOSPITAL AND MONITOR ALONG WITH ME - CONTINUE WITH IV ANTIBIOTICS, IV FLUIDS. DEFER NPO STATUS TO DR. OLGUIN. URETERAL STONE - DR. DUENAS INVOLVED IN THE PATIENT'S CASE - WILL DEFER THE TREATMENT TO DR. DUENAS - THEY ARE LOOKING AT POSSIBLE LITHOTRIPSY IF OKAYED WITH DR. OLGUIN PRIOR TO PROCEDURE. IRRITABLE BOWEL SYNDROME - INCREASE FLUIDS, INCREASE FIBER INTAKE. LEUKOCYTOSIS - REPEAT LABS IN THE MORNING - PT TO CONTINUE ON ZOSYN. HYPERBILIRUBINEMIA - REPEAT CMP IN THE MORNING. Admission Diagnosis DIVERTICULAR ABSCESS WITH RUPTURE ABDOMINAL PAIN URETERAL STONE IRRITABLE BOWEL SYNDROME LEUKOCYTOSIS HYPERBILIRUBINEMIA Admission Status: Inpatient Order (span 2 midnights) Reason for Inpatient Admission: INPATIENT ADMISSION TO THE HOSPITAL FOR DIVERTICULAR ABSCESS - WILL REQUIRE AT LEAST 72 HOURS IN HOSPITAL FOR IV ANTIBIOTICS Clinical Quality Measures DVT/VTE Risk/Contraindication: Risk Factor Score Per Nursin RFS Level Per Nursing on Admit: 2=Moderate GUILLERMINA RIGGS MD Nov 22, 2018 09:08
[2018-11-22] MEDS ORDERED: DICY20TA10 PO (09:22)
[2018-11-22] MEDS ORDERED: FLUT16SP22 NS (09:22)
[2018-11-22] MEDS ORDERED: FEXO1TAB40 PO (09:22)
[2018-11-22] MEDS ORDERED: ATOR10TA66 PO (09:22)
--- NOTE | 2018-11-22 09:22 | NUR ---
PATIENT LISTED HIS MEDICATIONS AND I VERIFIED THEM WITH THE EXT MED HX. HE ALSO STATES HE TAKES ASHLEY D, I VERIFIED WITH relocality THAT THEY FILLED ASHLEY D 12 HOUR BID PRN #24 IN MAY. HE STATES HE TAKES IT ONCE DAILY.
--- NOTE | 2018-11-22 09:48 | Diagnostic Imaging Report ---
PATIENT HISTORY: Left kidney stone and perforated bowel. TECHNIQUE: Frontal view of the abdomen COMPARISON: CT from 11/21/2018 FINDINGS: Gas is seen in the colon. A large collection of free air is not appreciated. No distended loops of small bowel are seen. There are phleboliths in the pelvis. There is a small 4 mm calcification in the region of the proximal left ureter. IMPRESSION: 1. Small 4 mm calcification in the region of the proximal left ureter. 2. No bowel obstruction or large collection of free air seen. Dictated by: Dictated on workstation # [id number]
[2018-11-22] MEDS ORDERED: FUROSEMIDE 40 MG/4 ML INJ (LASIX) ONE (10:26)
[2018-11-22] MEDS ORDERED: KETOROLAC 30 MG/ML VIAL ONE (10:26)
[2018-11-22] MEDS ORDERED: LIDOCAINE PF 2% 5 ML (XYLOCAINE) VIAL ONE (10:26)
[2018-11-22] MEDS ORDERED: SEVOFLURANE (ULTANE) 15 ML INHAL SOLN ONE ×3 (10:26→11:29)
[2018-11-22] MEDS ORDERED: ONDANSETRON 4 MG/2 ML (SDV) Z0FRAN ONE (10:26)
[2018-11-22] MEDS ORDERED: proPOfol 200 MG/20 ML (DIPRIVAN) VIAL IV ONE (10:26)
[2018-11-22] MEDS ORDERED: MIDAZOLAM 2 MG/2 ML (VERSED) VIAL ONE (10:27)
[2018-11-22] MEDS ORDERED: fentaNYL INJECTION 100 MCG/2 ML AMP ONE (10:27)
[2018-11-22] MEDS ORDERED: DEXAMETHASONE 10 MG/ML (DECADRON) 1 ML VIAL ONE (10:31)
[2018-11-22] MEDS: LACTATED RINGERS 1,000 ML IV SCH ×2 (10:33→21:00)
--- NOTE | 2018-11-22 10:57 | Progress Note-Post Operative ---
Post-Operative Progess Note Surgeon (s)/Comber Fixer (s) Surgeon ROSIBEL DUENAS MD Comber Fixer: NONE Pre-Operative Diagnosis LT PROXIMAL URETERAL STONE Post-Operative Diagnosis SAME Procedure & Operative Findings Date of Procedure 11/22/18 Procedure Performed/Findings LT ESWL Anesthesia Type GENERAL Estimated Blood Loss Estimated blood loss (mL): NONE Specimens/Packing Specimens Removed NONE Packing: NONE ROSIBEL DUENAS MD Nov 22, 2018 10:57
[2018-11-22] MEDS ORDERED: ONDANSETRON 4 MG/2 ML (SDV) Z0FRAN IVP PRN (11:45)
[2018-11-22] MEDS ORDERED: HYDROmorphone 2 MG/ML VIAL (DILAUDID) IV ONE (11:45)
--- NOTE | 2018-11-22 15:58 | CONSULTATION REPORT ---
DATE OF SERVICE: 11/22/2018 ATTENDING PHYSICIAN: Dr. James. SUMMARY: After reviewing the patient's records, interviewing him and examining him, this is a 43-year-old man admitted with acute diverticulitis and started on IV antibiotics. A CT scan shows an incidental finding of a 5 mm stone in the proximal left ureter with minimal ____ around the level of L3. He denies any previous stone problems. Denies family history of stones, but admit to diverticular disease in the family. PAST SURGICAL HISTORY: EGD and some orthopedic surgery. ALLERGIES: He has no known drug allergy. His seasonal allergy is the only illness along with diverticulosis. MEDICATIONS: He is on cetirizine 10 mg p.o. daily. SOCIAL HISTORY: No alcohol. No smoking, no drugs. PHYSICAL EXAMINATION: VITAL SIGNS: Per chart. GENERAL: Well-nourished, well developed, in no acute distress at the time of my examination. HEAD: Normocephalic. ENT: Unremarkable. NECK: Supple. No bruit. CHEST: Clear, nontender. HEART: Regular rate and rhythm. No murmurs. ABDOMEN: Soft. There is no CVA tenderness. There is lower abdominal tenderness. EXTREMITIES: Lower extremities, no edema or cyanosis. NEUROLOGIC: Grossly intact and oriented x3. IMPRESSION: 1. Left proximal ureteral stone. 2. Acute diverticulitis. RECOMMENDATION: I had a brief discussion with the patient and his with alternatives, risks and complications. The ESWL machine is here today. We can go ahead and blast the stone if it remains in the proximal ureter away from the area of diverticulitis and if it is okay with Dr. James or give a chance to the patient to pass the stone spontaneously and manage accordingly. The patient elected to go ahead with ESWL. Dr. James okayed it. We will, however, obtain a KUB now to make sure the stone is still in the proximal ureter and away from the area of the diverticulitis. The procedure was fully explained to him and his with potential risk and complications. Job ID: [id number] DocumentID: [id number] Dictated Date: 11/22/2018 08:41:46 Venetian Blind Installer Date: 11/22/2018 13:23:29 Dictated By: ROSIBEL DUENAS MD
--- NOTE | 2018-11-22 19:16 | OPERATIVE REPORT ---
DATE OF SERVICE: 11/22/2018 PREOPERATIVE DIAGNOSIS: Left proximal ureteral stone. POSTOPERATIVE DIAGNOSIS: Left proximal ureteral stone. OPERATION PERFORMED: Left ESWL. SURGEON: Jon Duenas MD ANESTHESIA: General. COMPLICATIONS: None. DESCRIPTION OF PROCEDURE: Under satisfactory general anesthesia, the patient in supine position on the ESWL table, the left proximal ureteral stone was localized. Shocks were delivered at kV of 6. A total of 2000 shocks completely fragmented the stone that was hardly visualized. The patient received 40 mg of Lasix and 30 mg of Toradol IV at the end of the procedure. He tolerated the procedure and anesthesia well and was sent to recovery room in stable condition. Job ID: [id number] DocumentID: [id number] Dictated Date: 11/22/2018 12:49:57 Daycare Teacher Date: 11/22/2018 19:15:39 Dictated By: JON DUENAS MD
--- NOTE | 2018-11-22 19:50 | Consultation (Surgery) ---
History of Present Illness History of Present Illness Patient Consulted On(dirk/time) 11/22/18 07:44 Date Seen by Provider: Nov 22, 2018 Time Seen by Provider: 07:24 History of Present Illness consult requested by Dr. Riggs for diverticulitis Patient is a 43-year-old male who states she's been not feeling well for approximately the last week. Patient states over the last 3 days is really had worsening of his symptoms. He is having sharp pain that he states is a 7-8 out of 10it's located in the left lower quadrant without any radiation. Movements make worse and nothing was seems to make better. Patient went to the emergency department for further valuation. Patient's not had any complaints of any urinary symptoms. He had a CT scan that are reviewed the demonstrated divert iculitis with small perforation no abscess and a left ureteral stone.he currently denies any nausea vomiting fever sweats chills shortness of breath or chest pain. Allergies and Home Medications Allergies Coded Allergies: No Known Drug Allergies (Unverified , 11/28/10) Home Medications Atorvastatin Calcium 10 Mg Tablet, 10 MG PO HS, (Reported) Dicyclomine HCl 20 Mg Tablet, 20 MG PO TID PRN for STOMACH UPSET, (Reported) Fexofenadine/Pseudoephedrine 1 Each Tab.er.12h, 1 TAB PO DAILY PRN for ALLERGIES, (Reported) Fluticasone Propionate 16 Gm [place].susp, 1 SPRAY NS BID, (Reported) Patient Home Medication List Home Medication List Reviewed: Yes Past Nsrfqop-Daybwe-Yfiyca Hx Patient Social History Alcohol Use: Rarely Uses Number of Drinks Today: 0 Recreational Drug Use: No Smoking Status: Never a Smoker 2nd Hand Smoke Exposure: No Recent Foreign Travel: No Contact w/Someone Who Travel: No Recent Infectious Disease Expo: No Recent Hopitalizations: Yes Seasonal Allergies Seasonal Allergies: No Surgeries History of Surgeries: Yes (EGD) Surgeries: Orthopedic Respiratory History of Respiratory Disorde: No Cardiovascular History of Cardiac Disorders: No Neurological History of Neurological Disord: No Genitourinary History of Genitourinary Disor: No Gastrointestinal History of Gastrointestinal Di: Yes Gastrointestinal Disorders: Irritable Bowel Musculoskeletal History of Musculoskeletal Dis: No Endocrine History of Endocrine Disorders: No HEENT History of HEENT Disorders: No Cancer History of Cancer: No Psychosocial History of Psychiatric Problem: No Integumentary History of Skin or Integumenta: No Blood Transfusions History of Blood Disorders: No Family Medical History Significant Family History: No Pertinent Family Hx Family Medial History: FH: breast cancer 19 MOTHER Review of Systems-General Constitutional: no symptoms reported EENTM: no symptoms reported Respiratory: no symptoms reported Cardiovascular: no symptoms reported Gastrointestinal: see HPI Genitourinary: no symptoms reported Skin: no symptoms reported Psychiatric/Neurological: No Symptoms Reported Physical Exam-General Problems Physical Exam Vital Signs Vital Signs - First Documented 11/21/18 21:53 Temp 97.8 Pulse 88 Resp 18 B/P (MAP) 124/79 (94) Pulse Ox 96 O2 Delivery Room Air Capillary Refill : Less Than 3 SecondsLess Than 3 Seconds General Appearance: no apparent distress HEENT: PERRL/EOMI, normal ENT inspection Neck: non-tender, full range of motion, supple, normal inspection Respiratory: chest non-tender, no respiratory distress, no accessory muscle use Cardiovascular: normal peripheral pulses, regular rate, rhythm Gastrointestinal: soft, tenderness (left lower quadrant no guarding or rebounding) Back: normal inspection, no CVA tenderness Extremities: normal range of motion, non-tender, normal inspection Neurologic/Psychiatric: on site coordinator II-XII nml as tested, no motor/sensory deficits, alert, normal mood/affect, oriented x 3 Skin: normal color, warm/dry Lymphatic: no adenopathy Data Review Labs Laboratory Tests 11/21/18 21:57: White Blood Count 24.0H, Red Blood Count 5.45, Hemoglobin 14.6, Hematocrit 44, Mean Corpuscular Volume 81, Mean Corpuscular Hemoglobin 27, Mean Corpuscular Hemoglobin Concent 33, Red Cell Distribution Width 14.0, Platelet Count 274, M susana Platelet Volume 11.7H, Neutrophils (%) (Auto) 78H, Lymphocytes (%) (Auto) 12, Monocytes (%) (Auto) 10, Eosinophils (%) (Auto) 0, Basophils (%) (Auto) 0, Neutrophils # (Auto) 18.6H, Lymphocytes # (Auto) 2.8, Monocytes # (Auto) 2.5H, Eosinophils # (Auto) 0.0, Basophils # (Auto) 0.0, Neutrophils % (Manual) 80, Lymphocytes % (Manual) 8, Monocytes % (Manual) 9, Eosinophils % (Manual) 0, Basophils % (Manual) 0, Band Neutrophils 2, Reactive Lymphocytes 1, Toxic Granulation 1+, Prothrombin Time 14.7, INR Comment 1.1, Activated Partial Thromboplast Time 29, Sodium Level 137, Potassium Level 3.8, Chloride Level 100, Carbon Dioxide Level 25, Anion Gap 12, Blood Urea Nitrogen 8, Creatinine 1.06, Estimat Glomerular Filtration Rate > 60, BUN/Creatinine Ratio 8, Glucose Level 118H, Calcium Level 10.6H, Corrected Calcium 10.3H, Magnesium Level 2.5H, Total Bilirubin 2.4H, Aspartate Amino Transf (AST/SGOT) 17, Alanine Aminotransferase (ALT/SGPT) 23, Alkaline Phosphatase 89, Total Protein 7.7, Albumin 4.4, Amylase Level 46, Lipase 30 11/21/18 22:05: Urine Color REDH, Urine Clarity SLIGHTLY CLOUDY, Urine pH 6.5, Urine Specific [place] 1.020, Urine Protein 2+H, Urine Glucose (UA) NEGATIVE, Urine Ketones 2+H , Urine Nitrite POSITIVEH, Urine Bilirubin NEGATIVE, Urine Urobilinogen 1, Urine Leukocyte Esterase 1+H, Urine RBC (Auto) 5+H, Urine RBC TNTCH, Urine WBC 2-5, Urine Squamous Epithelial Cells NONE, Urine Crystals NONE, Urine Bacteria TRACE, Urine Casts NONE, Urine Mucus SMALLH, Urine Culture Indicated NO 11/21/18 23:00: Lactic Acid Level 1.25 11/22/18 05:25: White Blood Count 22.2H, Red Blood Count 5.04, Hemoglobin 13.4, Hematocrit 41, Mean Corpuscular Volume 82, Mean Corpuscular Hemoglobin 27, Mean Corpuscular Hemoglobin Concent 33, Red Cell Distribution Width 14.2, Platelet Count 241, Mean Platelet Volume 12.1H, Neutrophils (%) (Auto) 83H, Lymphocytes (%) (Auto) 6L, Monocytes (%) (Auto) 11, Eosinophils (%) (Auto) 0, Basophils (%) (Auto) 0, Neutrophils # (Auto) 18.4H, Lymphocytes # (Auto) 1.2, Monocytes # (Auto) 2.5H, Eosinophils # (Auto) 0.0, Basophils # (Auto) 0.0, Sodium Level 137, Potassium Level 3.7, Chloride Level 103, Carbon Dioxide Level 26, Anion Gap 8, Blood Urea Nitrogen 8, Creatinine 0.97, Estimat Glomerular Filtration Rate > 60, BUN/Creatinine Ratio 8, Glucose Level 129H, Calcium Level 9.2, Corrected Calcium 9.4, Total Bilirubin 2.6H, Aspartate Amino Transf (AST/SGOT) 15, Alanine Aminotransferase (ALT/SGPT) 21, Alkaline Phosphatase 82, Total Protein 6.7, Albumin 3.8 Microbiology 11/21/18 Blood Culture - Preliminary, Resulted No growth Assessment/Plan Assessment/Plan Assessment/Plan diverticulitis with perforation Left lower quadrant abdominal pain Left ureteral stone Patient be kept nothing by mouth Dr. Maguire consulted for ureteral stone on Zosyn and Flagyl IV hydration We'll continue conservative management at this time. Repeat labs in the morning. Patient understands conservative measures at this time but may still need surgical intervention. Patient in agreement with plan. Clinical Quality Measures DVT/VTE Risk/Contraindication: Risk Factor Score Per Nursin RFS Level Per Nursing on Admit: 2=Moderate GARDENIA OLGUIN DO Nov 22, 2018 19:49
--- NOTE | 2018-11-22 22:53 | NUR ---
pt does c/o lower abd tenderness pt states from kidney stone Addendum: 11/22/18 at 2255 by KAPIL MONTIEL RN Amended: Links added.
[2018-11-23] MEDS: metroNIDAZOLE 500MG/100ML IVPB 100 ML IV SCH ×4 (01:34→21:54)
[2018-11-23 04:34] VITALS: BP 94/59
[2018-11-23] MEDS: PIPERACILLIN/TAZO 4.5 GM/NS 100 ML IV SCH ×6 (05:53→23:05)
[2018-11-23] MEDS: D5 1/2 NS W/KCL 20 MEQ/L 1,000 ML IV SCH ×3 (05:54→23:05)
[2018-11-23 06:25] LABS: HEMOGLOBIN 12.4 G/DL (13.3-17.7); MEAN PLATELET VOLUME 12.3 FL (7.4-10.4); RED CELL DISTRIBUTION WIDTH 13.7 % (10.0-14.5); WHITE BLOOD COUNT 22.8 10^3/uL (4.3-11.0)
[2018-11-23 06:46] LABS: ALANINE AMINOTRANSFERASE 18 U/L (0-55); ALBUMIN 3.6 GM/DL (3.2-4.5); ALKALINE PHOSPHATASE 81 U/L (40-136); BILIRUBIN,TOTAL 1.2 MG/DL (0.1-1.0); BUN/CREATININE RATIO 16; CALCIUM 9.3 MG/DL (8.5-10.1); CARBON DIOXIDE 24 MMOL/L (21-32); CHLORIDE 105 MMOL/L (98-107); CREATININE SERUM 0.86 MG/DL (0.60-1.30); GFR ESTIMATED > 60; GLUCOSE 138 MG/DL (70-105); POTASSIUM 4.1 MMOL/L (3.6-5.0); SODIUM 137 MMOL/L (135-145); TOTAL PROTEIN 6.5 GM/DL (6.4-8.2)
--- NOTE | 2018-11-23 07:07 | Progress Note ---
Subjective Date Seen by a Provider: Nov 23, 2018 Time Seen by a Provider: 06:30 Subjective/Events-last exam patient pain improved. NPO. Had ESWL yesterday for stone. Passing flatus. Denies n/v fever sweats chills shortness of breath or chest pain. Focused Exam Lactate Level 11/21/18 23:00: Lactic Acid Level 1.25 Objective Exam Vital Signs Date Time Temp Pulse Resp B/P (MAP) Pulse Ox O2 Delivery O2 Flow Rate FiO2 11/23/18 04:34 98.2 52 17 94/59 (71) 96 Room Air 11/22/18 23:59 96.6 58 18 99/56 (70) 97 Room Air 11/22/18 19:29 98.1 63 20 100/57 (71) 96 Room Air 11/22/18 15:35 98.0 66 20 99/60 (73) 95 Room Air 11/22/18 12:25 Room Air 11/22/18 12:25 98.9 14 99 Room Air 11/22/18 12:20 98.9 14 99 Room Air 11/22/18 12:10 14 99 Room Air 11/22/18 12:05 Room Air 11/22/18 12:00 14 100 Room Air 11/22/18 12:00 99.1 87 18 100/61 (74) 95 Room Air 11/22/18 11:50 Room Air 11/22/18 11:50 16 100 Room Air 11/22/18 11:40 OxyMask 4 11/22/18 11:40 15 100 OxyMask 4 11/22/18 11:30 14 100 OxyMask 10 11/22/18 11:30 OxyMask 10 11/22/18 11:22 98.8 12 98 OxyMask 10 11/22/18 11:22 OxyMask 10 11/22/18 08:00 99.4 89 18 94/52 (66) 94 Room Air 11/22/18 08:00 99 Room Air I & O 11/23/18 07:00 Intake Total 150 ml Output Total 1900 ml Balance -1750 ml Capillary Refill : Less Than 3 SecondsLess Than 3 Seconds General Appearance: No Apparent Distress, WD/WN HEENT: PERRL/EOMI, Pharynx Normal Neck: Full Range of Motion, Non Tender, Supple Respiratory: Chest Non Tender, Lungs Clear, Normal Breath Sounds, No Accessory Muscle Use Cardiovascular: Regular Rate, Rhythm Gastrointestinal: soft, tenderness (left lower quadrant no guarding or rebounding slightly improved from yesterday) Extremity: Normal Capillary Refill, Non Tender, No Calf Tenderness, No Pedal Edema Neurologic/Psychiatric: Alert, Oriented x3, No Motor/Sensory Deficits, Normal Mood/Affect, food mobile driver II-XII Norm as Tested Skin: Normal Color, Warm/Dry Lymphatic: No Adenopathy Results Lab Laboratory Tests 11/23/18 05:44: White Blood Count 22.8H, Red Blood Count 4.65, Hemoglobin 12.4L, Hematocrit 38L, Mean Corpuscular Volume 81, Mean Corpuscular Hemoglobin 27, Mean Corpuscular Hemoglobin Concent 33, Red Cell Distribution Width 13.7, Platelet Count 214, Mean Platelet Volume 12.3H, Sodium Level 137, Potassium Level 4.1, Chloride Level 105, Carbon Dioxide Level 24, Anion Gap 8, Blood Urea Nitrogen 14, Creatinine 0.86, Estimat Glomerular Filtration Rate > 60, BUN/Creatinine Ratio 16, Glucose Level 138H, Calcium Level 9.3, Corrected Calcium 9.6, Total Bilirubin 1.2H, Aspartate Amino Transf (AST/SGOT) 12, Alanine Aminotransferase (ALT/SGPT) 18, Alkaline Phosphatase 81, Total Protein 6.5, Albumin 3.6 Microbiology 11/21/18 Blood Culture - Preliminary, Resulted No growth Assessment/Plan Assessment/Plan Assessment/Plan diverticulitis with perforation Left lower quadrant abdominal pain Left ureteral stone s/p ESWL Patient be kept nothing by mouth Dr. Maguire consulted for ureteral stone ESWL done on Zosyn and Flagyl WBC 22K follow wbc Pain improved IV hydration We'll continue conservative management at this time. Repeat labs in the morning. Patient understands conservative measures at this time but may still need surgical intervention. Patient in agreement with plan. Clinical Quality Measures DVT/VTE Risk/Contraindication: Risk Factor Score Per Nursin RFS Level Per Nursing on Admit: 2=Moderate GARDENIA OLGUIN DO Nov 23, 2018 07:07
--- NOTE | 2018-11-23 07:54 | Anesthesia-General Post-Op ---
General Patient Condition Mental Status/LOC: Same as Preop Cardiovascular: Satisfactory Nausea/Vomiting: Absent Respiratory: Satisfactory Pain: Controlled Complications: Absent Post Op Complications Complications None Follow Up Care/Instructions Patient Instructions None needed. Anesthesia/Patient Condition Patient Condition Patient is doing well, no complaints, stable vital signs, no apparent adverse anesthesia problems. No complications reported per nursing. ELEANOR GATES CRNA Nov 23, 2018 07:54
[2018-11-23 08:00] VITALS: BP 107/68
--- NOTE | 2018-11-23 08:45 | Progress Note ---
Subjective Date Seen by a Provider: Nov 23, 2018 Time Seen by a Provider: 08:43 Subjective/Events-last exam PT REPORTS THAT HE IS FEELING LESS PAIN IN HIS ABDOMEN AFTER HAVING THE LITHOTRIPSY - HE STATES THAT HE HAS PASSED FLATUS, FEELS LIKE HE COULD HAVE A BOWEL MOVEMENT. HE DENIES CHEST PAIN, SHORTNESS OF BREATH Review of Systems General: Fatigue, Malaise HEENT: No Head Aches Pulmonary: No Dyspnea, No Cough Cardiovascular: No: Chest Pain, Palpitations Gastrointestinal: Abdominal Pain; No: Nausea Genitourinary: No Dysuria; Frequency Neurological: Weakness; No: Confusion Focused Exam Lactate Level 11/21/18 23:00: Lactic Acid Level 1.25 Objective Exam Last Set of Vital Signs Vital Signs Date Time Temp Pulse Resp B/P (MAP) Pulse Ox O2 Delivery O2 Flow Rate FiO2 11/23/18 04:34 98.2 52 17 94/59 (71) 96 Room Air 11/22/18 11:40 4 Capillary Refill : Less Than 3 SecondsLess Than 3 Seconds I&O Intake and Output 11/23/18 00:00 Intake Total 1370 ml Output Total 1875 ml Balance -505 ml Intake Oral 0 ml IV Total 1370 ml Output Urine Total 1875 ml Daily Weight Change No General: Alert, Oriented X3, Cooperative, Mild Distress HEENT: Atraumatic, PERRLA Neck: Supple Lungs: Clear to Auscultation, Normal Air Movement Heart: Regular Rate Abdomen: Normal Bowel Sounds, Other (SOFT TTP LLQ) Extremities: No Clubbing, No Cyanosis Skin: No Rashes, No Breakdown Psych/Mental Status: Mental Status NL, Mood NL Results Lab Laboratory Tests 11/23/18 05:44: White Blood Count 22.8H, Red Blood Count 4.65, Hemoglobin 12.4L, Hematocrit 38L, Mean Corpuscular Volume 81, Mean Corpuscular Hemoglobin 27, Mean Corpuscular Hemoglobin Concent 33, Red Cell Distribution Width 13.7, Platelet Count 214, Mean Platelet Volume 12.3H, Sodium Level 137, Potassium Level 4.1, Chloride Level 105, Carbon Dioxide Level 24, Anion Gap 8, Blood Urea Nitrogen 14, Creatinine 0.86, Estimat Glomerular Filtration Rate > 60, BUN/Creatinine Ratio 16, Glucose Level 138H, Calcium Level 9.3, Corrected Calcium 9.6, Total Bilirubin 1.2H, Aspartate Amino Transf (AST/SGOT) 12, Alanine Aminotransferase (ALT/SGPT) 18, Alkaline Phosphatase 81, Total Protein 6.5, Albumin 3.6 Microbiology 11/21/18 Blood Culture - Preliminary, Resulted No growth Assessment/Plan Assessment/Plan Assess & Plan/Chief Complaint DIVERTICULAR ABSCESS WITH RUPTURE ABDOMINAL PAIN URETERAL STONE IRRITABLE BOWEL SYNDROME LEUKOCYTOSIS HYPERBILIRUBINEMIA DIVERTICULAR ABSCESS WITH RUPTURE WITH ABDOMINAL PAIN - - DR. OLGUIN INVOLVED IN THE CASE - HE WILL SEE PATIENT IN THE HOSPITAL AND MONITOR ALONG WITH ME - CONTINUE WITH IV ANTIBIOTICS (ZOSYN AND FLAGYL), IV FLUIDS. DEFER NPO STATUS TO DR. OLGUIN. URETERAL STONE - DR. DUENAS INVOLVED IN THE PATIENT'S CASE - LITHOTRIPSY PERFORMED YESTERDAY TO LEFT URETERAL STONE, URINE BEING STRAINED AT THIS TIME. IRRITABLE BOWEL SYNDROME PREDOMINANTLY CONSTIPATION - INCREASE FLUIDS, INCREASE FIBER INTAKE OUTPT. LEUKOCYTOSIS - WBC'S REMAIN ELEVATED AT 22 - CONTINUE WITH IV ANTIBIOTICS, FLUIDS AND REPEAT LABS IN THE MORNING - PT TO CONTINUE ON ZOSYN AND FLAGYL. HYPERBILIRUBINEMIA - IMPROVED. Clinical Quality Measures Admission Status Admission Dx DIVERTICULAR ABSCESS WITH RUPTURE ABDOMINAL PAIN URETERAL STONE IRRITABLE BOWEL SYNDROME LEUKOCYTOSIS HYPERBILIRUBINEMIA DVT/VTE Risk/Contraindication: Risk Factor Score Per Nursin RFS Level Per Nursing on Admit: 2=Moderate GUILLERMINA FONTAINE MD Nov 23, 2018 08:45
--- NOTE | 2018-11-23 11:13 | Progress Note-Urology ---
Progress Note-Urology Progress Notes/Assess & Plan Progress/Assessment & Plan RECOVERED WELL FROM ESWL. SAYS PAIN BETTER. NO FRAGMENTS YET. KUB TODAY Final Diagnosis LT URETERAL STONE ROSIBEL DUENAS MD Nov 23, 2018 11:13
[2018-11-23 12:00] VITALS: BP 105/54
--- NOTE | 2018-11-23 13:12 | Diagnostic Imaging Report ---
INDICATION: Status post ESWL. COMPARISON: 11/22/2018 FINDINGS: Two supine radiographic views of the abdomen were obtained. Previously described calculus seen projecting over the superior left ureter can no longer be identified status post ESWL. Pelvic phleboliths are again noted. No unexpected radiopaque foreign bodies are identified. Small bowel loops are nondistended. There is no large collection of free intraperitoneal air. Osseous structures show no gross acute abnormalities. IMPRESSION: 1. Previously described left ureteral calculus can no longer be identified. Findings may be on the basis of interval fragmentation and/or passage. 2. Nonobstructive small bowel gas pattern. Dictated by: Dictated on workstation # [id number]
[2018-11-23 16:00] VITALS: BP 102/64
[2018-11-23 20:08] VITALS: BP 112/74
[2018-11-23] MEDS: ONDANSETRON 4 MG/2 ML (SDV) Z0FRAN IV PRN ×2 (22:00→23:06)
[2018-11-23] MEDS: KETOROLAC 30 MG/ML VIAL IVP PRN (23:06)
[2018-11-24] VITALS (7 sets, daily range): BP systolic 92–112; BP diastolic 54–72
[2018-11-24] MEDS: metroNIDAZOLE 500MG/100ML IVPB 100 ML IV SCH ×4 (01:30→19:32)
[2018-11-24] MEDS: D5 1/2 NS W/KCL 20 MEQ/L 1,000 ML IV SCH ×3 (01:55→23:42)
[2018-11-24] MEDS: PIPERACILLIN/TAZO 4.5 GM/NS 100 ML IV SCH ×6 (05:00→20:47)
[2018-11-24 05:56] LABS: HEMOGLOBIN 11.9 G/DL (13.3-17.7); MEAN PLATELET VOLUME 12.1 FL (7.4-10.4); RED CELL DISTRIBUTION WIDTH 14.1 % (10.0-14.5); WHITE BLOOD COUNT 19.9 10^3/uL (4.3-11.0)
[2018-11-24 06:26] LABS: BUN/CREATININE RATIO 18; CALCIUM 8.4 MG/DL (8.5-10.1); CARBON DIOXIDE 25 MMOL/L (21-32); CHLORIDE 106 MMOL/L (98-107); CREATININE SERUM 0.97 MG/DL (0.60-1.30); GFR ESTIMATED > 60; GLUCOSE 108 MG/DL (70-105); POTASSIUM 3.6 MMOL/L (3.6-5.0); SODIUM 138 MMOL/L (135-145)
[2018-11-24] MEDS: ONDANSETRON 4 MG/2 ML (SDV) Z0FRAN IV PRN ×4 (07:41→19:37)
--- NOTE | 2018-11-24 09:33 | Progress Note-Urology ---
Progress Note-Urology Progress Notes/Assess & Plan Progress/Assessment & Plan GOOD ESWL RESULTS, KUB YESTERDAY NEGATIVE Final Diagnosis LT PROXIMAL URETERAL STONE (RESOLVED) ROSIBEL DUENAS MD Nov 24, 2018 09:33
--- NOTE | 2018-11-24 10:59 | Progress Note ---
Subjective Date Seen by a Provider: Nov 24, 2018 Time Seen by a Provider: 10:53 Subjective/Events-last exam patient's in a little bit better today. Less pain in left lower quadrant. Passing flatus and having bowel movements. White blood cell count still elevated but minimally down. Denies any nausea vomiting fever sweats chills shortness of breath or chest pain at this time. Focused Exam Lactate Level 11/21/18 23:00: Lactic Acid Level 1.25 Objective Exam Vital Signs Date Time Temp Pulse Resp B/P (MAP) Pulse Ox O2 Delivery O2 Flow Rate FiO2 11/24/18 08:00 99 Room Air 11/24/18 08:00 98.3 57 18 107/68 (81) 96 Room Air 11/24/18 04:00 98.5 57 18 110/65 (80) 97 Room Air 11/24/18 00:00 99.1 57 18 92/54 (67) 95 Room Air 11/23/18 20:08 99.5 52 20 112/74 (87) 98 Room Air 11/23/18 20:00 98 Room Air 4.00 11/23/18 20:00 Nasal Cannula 4.00 11/23/18 16:00 99.1 55 20 102/64 (77) 94 Room Air 11/23/18 12:00 99.5 60 20 105/54 (71) 95 Room Air I & O 11/24/18 07:00 Intake Total 150 ml Output Total 350 ml Balance -200 ml Capillary Refill : Less Than 3 SecondsLess Than 3 Seconds General Appearance: No Apparent Distress, WD/WN HEENT: PERRL/EOMI, Pharynx Normal Neck: Full Range of Motion, Non Tender, Supple Respiratory: Chest Non Tender, Lungs Clear, Normal Breath Sounds, No Accessory Muscle Use Cardiovascular: Regular Rate, Rhythm Gastrointestinal: soft, tenderness (left lower quadrant - less) Extremity: Normal Capillary Refill, Non Tender, No Calf Tenderness, No Pedal Edema Neurologic/Psychiatric: Alert, Oriented x3, No Motor/Sensory Deficits, Normal Mood/Affect, financial administration officer II-XII Norm as Tested Skin: Normal Color, Warm/Dry Lymphatic: No Adenopathy Results Lab Laboratory Tests 11/24/18 05:05: White Blood Count 19.9H, Red Blood Count 4.50, Hemoglobin 11.9L, Hematocrit 37L, Mean Corpuscular Volume 81, Mean Corpuscular Hemoglobin 26, Mean Corpuscular Hemoglobin Concent 33, Red Cell Distribution Width 14.1, Platelet Count 265, Mean Platelet Volume 12.1H 11/24/18 05:15: Sodium Level 138, Potassium Level 3.6, Chloride Level 106, Carbon Dioxide Level 25, Anion Gap 7, Blood Urea Nitrogen 17, Creatinine 0.97, Estimat Glomerular Filtration Rate > 60, BUN/Creatinine Ratio 18, Glucose Level 108H, Calcium Level 8.4L, Magnesium Level 2.0 Microbiology 11/21/18 Blood Culture - Preliminary, Resulted No growth 11/22/18 MRSA Screen - Final, Complete MRSA not isolated Assessment/Plan Assessment/Plan Assessment/Plan DIVERTICULAR ABSCESS WITH RUPTURE ABDOMINAL PAIN LLQ URETERAL STONE IRRITABLE BOWEL SYNDROME LEUKOCYTOSIS HYPERBILIRUBINEMIA leukocytosis slowly improving and pain improving by physical exam. We'll start on clear liquids Patient on Zosyn and Flagyl No surgical intervention at this time continue conservative management. Clinical Quality Measures DVT/VTE Risk/Contraindication: Risk Factor Score Per Nursin RFS Level Per Nursing on Admit: 2=Moderate GARDENIA OLGUIN DO Nov 24, 2018 10:59
--- NOTE | 2018-11-24 11:33 | Progress Note-Hospitalist ---
Subjective HPI/CC On Admission Date Seen by Provider: Nov 24, 2018 Time Seen by Provider: 10:40 Subjective/Events-last exam Patient doing much better Clear liquid diet is working very well for him Minimal nausea Reviewed chart line denies any other significant new issues I encouraged him to walk in the halls with the IV pole Review of Systems General: Fatigue Gastrointestinal: Nausea, Abdominal Pain Focused Exam Lactate Level 11/21/18 23:00: Lactic Acid Level 1.25 Objective Exam Vital Signs Vital Signs Date Time Temp Pulse Resp B/P (MAP) Pulse Ox O2 Delivery O2 Flow Rate FiO2 11/24/18 08:00 99 Room Air 11/24/18 08:00 98.3 57 18 107/68 (81) 11/23/18 20:00 4.00 Capillary Refill : Less Than 3 SecondsLess Than 3 Seconds General Appearance: No Apparent Distress, WD/WN HEENT: PERRL/EOMI, Pharynx Normal Neck: Full Range of Motion, Non Tender, Supple Respiratory: Chest Non Tender, Lungs Clear, Normal Breath Sounds, No Accessory Muscle Use Cardiovascular: Regular Rate, Rhythm Gastrointestinal: Normal Bowel Sounds, Soft, Tenderness Rectal: Deferred Extremity: Normal Capillary Refill, Non Tender, No Calf Tenderness, No Pedal Edema Neurologic/Psychiatric: Alert, Oriented x3, No Motor/Sensory Deficits, Normal Mood/Affect, toe former II-XII Norm as Tested Skin: Normal Color, Warm/Dry Lymphatic: No Adenopathy Results/Procedures Lab Laboratory Tests 11/24/18 05:05 11/24/18 05:15 Patient resulted labs reviewed. Assessment/Plan Assessment and Plan Assess & Plan/Chief Complaint Assessment: Diverticular abscess with perforation Large kidney stone status post lithotripsy Postop ileus Abdominal pain Plan: Maintain on IV antibiotics Ambulate Diagnosis/Problems Diagnosis/Problems (1) Sigmoid Diverticulitis with perf Status: Acute (2) Left ureteral stone Status: Acute (3) Perforation of sigmoid colon due to diverticulitis Status: Acute Clinical Quality Measures DVT/VTE Risk/Contraindication: Risk Factor Score Per Nursin RFS Level Per Nursing on Admit: 2=Moderate SUSHANT CORTES DO Nov 24, 2018 11:33
--- NOTE | 2018-11-24 21:20 | NUR ---
PT. COMPLAINING OF NAUSEA UNRELIEVED BY ZOFRAN GIVEN [address] FONTAINE NOTIFIED, NEW ORDERS RECEIVED: PHENERGAN 25MG IV Q6HRS PRN WILL CONTINUE TO MONITOR.
[2018-11-24] MEDS ORDERED: PROMETHAZINE INJ 25 MG/ML (PHENERGAN) AMP ONE (21:21)
[2018-11-24] MEDS ORDERED: PROMETHAZINE INJ 25 MG/ML (PHENERGAN) AMP IVP PRN (21:30)
[2018-11-24] MEDS: KETOROLAC 30 MG/ML VIAL IVP PRN (21:31)
[2018-11-25] MEDS: metroNIDAZOLE 500MG/100ML IVPB 100 ML IV SCH ×4 (01:33→19:38)
[2018-11-25] MEDS: ONDANSETRON 4 MG/2 ML (SDV) Z0FRAN IV PRN ×2 (03:12→09:31)
[2018-11-25 03:35] VITALS: BP 100/68
[2018-11-25 05:15] LABS: HEMOGLOBIN 13.2 G/DL (13.3-17.7); MEAN PLATELET VOLUME 11.4 FL (7.4-10.4); WHITE BLOOD COUNT 14.9 10^3/uL (4.3-11.0)
[2018-11-25] MEDS: PIPERACILLIN/TAZO 4.5 GM/NS 100 ML IV SCH ×6 (05:41→20:50)
[2018-11-25 05:42] LABS: ALANINE AMINOTRANSFERASE 16 U/L (0-55); ALBUMIN 3.6 GM/DL (3.2-4.5); ALKALINE PHOSPHATASE 63 U/L (40-136); BILIRUBIN,TOTAL 0.9 MG/DL (0.1-1.0); BUN/CREATININE RATIO 8; CALCIUM 9.2 MG/DL (8.5-10.1); CARBON DIOXIDE 25 MMOL/L (21-32); CHLORIDE 104 MMOL/L (98-107); CREATININE SERUM 0.92 MG/DL (0.60-1.30); GFR ESTIMATED > 60; GLUCOSE 133 MG/DL (70-105); POTASSIUM 3.9 MMOL/L (3.6-5.0); SODIUM 138 MMOL/L (135-145); TOTAL PROTEIN 6.5 GM/DL (6.4-8.2)
[2018-11-25] MEDS: D5 1/2 NS W/KCL 20 MEQ/L 1,000 ML IV SCH ×3 (06:53→18:02)
[2018-11-25 08:00] VITALS: BP 115/58
--- NOTE | 2018-11-25 09:31 | Progress Note-Urology ---
Progress Note-Urology Progress Notes/Assess & Plan Progress/Assessment & Plan F/U IN OFFICE IN 2 WEEKS Final Diagnosis LT URETERAL STONE ROSIBEL DUENAS MD Nov 25, 2018 09:31
[2018-11-25] MEDS ORDERED: METR500T PO (10:20)
[2018-11-25] MEDS ORDERED: LACT1CAP87 PO (10:20)
[2018-11-25] MEDS ORDERED: HYDR-3812 PO (10:20)
[2018-11-25] MEDS ORDERED: CIPR500T4 PO (10:20)
[2018-11-25] MEDS ORDERED: ONDA4TAB11 PO (10:20)
--- NOTE | 2018-11-25 10:25 | Discharge Inst-Complex ---
PDI Med Rec & Follow Up Appt. New Medications: Ciprofloxacin HCl (Ciprofloxacin HCl) 500 Mg Tablet 500 MG PO BID, #20 TAB Hydrocodone/Acetaminophen (Hydrocodone-Acetamin 5-325 mg) 1 Each Tablet 1 TAB PO Q4-6HR for PAIN-MODERATE for 7 Days, #20 TAB Lactobacillus Acidophilus (Acidophilus Lactobacilli) 1 Each Capsule 1 EACH PO TID, #30 CAP Metronidazole (Flagyl) 500 Mg Tablet 500 MG PO TID, #30 TAB Ondansetron (Ondansetron Odt) 4 Mg Tab.rapdis 4 MG PO QID, #30 TAB Continued Medications: Atorvastatin Calcium (Atorvastatin Calcium) 10 Mg Tablet 10 MG PO HS, TAB Dicyclomine HCl (Dicyclomine HCl) 20 Mg Tablet 20 MG PO TID PRN for STOMACH UPSET, TAB Fexofenadine/Pseudoephedrine (Yuridia-D 12 Hour Tablet) 1 Each Tab.er.12h 1 TAB PO DAILY PRN for ALLERGIES, TAB Fluticasone Propionate (Fluticasone Propionate) 16 Gm [place].susp 1 SPRAY NS BID, EA Prescription: Transmitted to Pharmacy Patient Instructions: FOLLOW UP WITH KUNAL IN ONE WEEK AND DR. DUENAS IN TWO WEEKS Activity, Diet and PDI Resume Normal Activity: Yes Discharge Diet: Soft Diet (SLOWLY ADVANCE DIET AFTER 3 DAYS KEEP FOOD SOFT AND MINIMALLY GREASY AND MINIMALLY SPICY POSSIBLE FOR THE NEXT 10 DAYS) Diet for 24 Hours: No Alcohol, No Pettus Foods, No Spicy Foods Diet After 24 Hours: Clear Liquid if Nauseous Drink 6-8 Glasses of Fluid/Day: Yes Driving Instructions: No Driving for 24 Hours Return to The Hospital For: ANY CONCERN FOR WORSENING ABDOMINAL PAIN, NAUSEA THAT IS UNCONTROLLED, DIARRHEA THAT IS UNCONTROLLED OR ANY LIFETHREATENING ILLNESS OR INJURY Symptoms to Reoprt to : Appetite Changes, Pain Increased, Fever Over 101 Degrees F, Pain/Pressure in Chest, Diarrhea(Persistant), Questions/Concerns, Nausea/Vomiting For Problems or Questions: Contact Your Physician, Go to Emergency Room GUILLERMINA FONTAINE MD Nov 25, 2018 10:25
--- NOTE | 2018-11-25 10:27 | Progress Note ---
Subjective Date Seen by a Provider: Nov 25, 2018 Time Seen by a Provider: 10:00 Subjective/Events-last exam PT REPORTS THAT HE HAS AN UPSET STOMACH AND HAD MORE NAUSEA YESTERDAY EVENING. HE STATES THAT HE HAS A BAD TASTE IN HIS MOUTH THAT IS CAUSING HIM TO FEEL LESS LIKE EATING, BUT HE HAS BEEN EATING A DRINKING A LITTLE. HE HAS HAD BOWEL MOVEMENTS. Review of Systems General: Fatigue HEENT: No Head Aches Pulmonary: No Dyspnea, No Cough Cardiovascular: No: Chest Pain, Palpitations, Edema Gastrointestinal: Nausea, Abdominal Pain Genitourinary: No Dysuria Neurological: No: Weakness, Confusion Objective Exam Last Set of Vital Signs Vital Signs Date Time Temp Pulse Resp B/P (MAP) Pulse Ox O2 Delivery O2 Flow Rate FiO2 11/25/18 08:00 98.8 60 18 115/58 (77) 96 Room Air 11/23/18 20:00 4.00 Capillary Refill : Less Than 3 SecondsLess Than 3 Seconds I&O Intake and Output 11/25/18 00:00 Intake Total 3610 ml Output Total 3200 ml Balance 410 ml Intake Oral 950 ml IV Total 2660 ml Output Urine Total 3200 ml # Voids 1 # Bowel Movements 1 General: Alert, Oriented X3, Cooperative, Mild Distress HEENT: Atraumatic, PERRLA Neck: Supple Lungs: Clear to Auscultation, Normal Air Movement Heart: Regular Rate Abdomen: Normal Bowel Sounds, Other (SOFT TTP LLQ) Extremities: No Clubbing, No Cyanosis Skin: No Rashes, No Breakdown Psych/Mental Status: Mental Status NL, Mood NL Results Lab Laboratory Tests 11/25/18 04:46: White Blood Count 14.9H, Red Blood Count 4.90, Hemoglobin 13.2L, Hematocrit 40, Mean Corpuscular Volume 81, Mean Corpuscular Hemoglobin 27, Mean Corpuscular Hemoglobin Concent 33, Red Cell Distribution Width 14.0, Platelet Count 295, Mean Platelet Volume 11.4H, Sodium Level 138, Potassium Level 3.9, Chloride Level 104, Carbon Dioxide Level 25, Anion Gap 9, Blood Urea Nitrogen 7, Creatinine 0.92, Estimat Glomerular Filtration Rate > 60, BUN/Creatinine Ratio 8, Glucose Level 133H, Calcium Level 9.2, Corrected Calcium 9.5, Total Bilirubin 0.9, Aspartate Amino Transf (AST/SGOT) 14, Alanine Aminotransferase (ALT/SGPT) 16, Alkaline Phosphatase 63, Total Protein 6.5, Albumin 3.6 Microbiology 11/21/18 Blood Culture - Preliminary, Resulted No growth 11/22/18 MRSA Screen - Final, Complete MRSA not isolated Assessment/Plan Assessment/Plan Assess & Plan/Chief Complaint DIVERTICULAR ABSCESS WITH RUPTURE ABDOMINAL PAIN URETERAL STONE IRRITABLE BOWEL SYNDROME LEUKOCYTOSIS HYPERBILIRUBINEMIA DIVERTICULAR ABSCESS WITH RUPTURE WITH ABDOMINAL PAIN - - DR. OLGUIN INVOLVED IN THE CASE - HE WILL SEE PATIENT IN THE HOSPITAL AND MONITOR ALONG WITH ME July PEÑALOZA WITH IV ANTIBIOTICS (ZOSYN AND FLAGYL), IV FLUIDS. PT TO CONTINUE WITH SLOWLY ADVANCED DIET. URETERAL STONE - DR. DUENAS INVOLVED IN THE PATIENT'S CASE - LITHOTRIPSY PERFORMED TO LEFT URETERAL STONE, URINE BEING STRAINED AT THIS TIME. IRRITABLE BOWEL SYNDROME PREDOMINANTLY CONSTIPATION - INCREASE FLUIDS, INCREASE FIBER INTAKE OUTPT. LEUKOCYTOSIS - WBC'S IMPROVED FROM 19.9 TO 14.9 - WE WILL CONTINUE WITH IV ANTIBIOTICS FOR ONE MORE DAY THEN IF SYMPTOMS REMAIN STABLE, WILL DISCHARGE TO HOME ON CIPROFLOXACIN AND FLAGYL X 10 MORE DAYS. HOWEVER, FOR NOW HE IS TO CONTINUE WITH FLUIDS AND REPEAT LABS IN THE MORNING - PT TO CONTINUE ON ZOSYN AND FLAGYL. HYPERBILIRUBINEMIA - RESOLVED. NAUSEA/GI UPSET - RX FOR CARAFATE AND PPI Clinical Quality Measures Admission Status Admission Dx DIVERTICULAR ABSCESS WITH RUPTURE ABDOMINAL PAIN URETERAL STONE IRRITABLE BOWEL SYNDROME LEUKOCYTOSIS HYPERBILIRUBINEMIA DVT/VTE Risk/Contraindication: Risk Factor Score Per Nursin RFS Level Per Nursing on Admit: 2=Moderate GUILLERMINA FONTAINE MD Nov 25, 2018 10:27
[2018-11-25 12:00] VITALS: BP 113/71
[2018-11-25] MEDS ORDERED: PANTOPRAZOLE 40 MG (PROTONIX) VIAL IV NR (12:14)
[2018-11-25] MEDS ORDERED: SUCRALFATE 1 GM (CARAFATE) TAB PO NR (12:15)
--- NOTE | 2018-11-25 16:17 | Progress Note ---
Subjective Date Seen by a Provider: Nov 25, 2018 Time Seen by a Provider: 16:14 Subjective/Events-last exam patient pain continuing to improve. Had some nausea last night but a little bit better. Patient tolerating liquids. He still having bowel movements. Denies any nausea vomiting fever sweats chills shortness of breath or chest pain at this time. White blood cell count down to 14.9 Objective Exam Vital Signs Date Time Temp Pulse Resp B/P (MAP) Pulse Ox O2 Delivery O2 Flow Rate FiO2 11/25/18 12:00 98.6 68 18 113/71 (85) 97 Room Air 11/25/18 08:00 98.8 60 18 115/58 (77) 96 Room Air 11/25/18 08:00 Room Air 11/25/18 03:35 98.0 60 18 100/68 (79) 98 Room Air 11/24/18 23:58 99.1 68 18 102/63 (76) 97 Room Air 11/24/18 20:00 Room Air 11/24/18 19:41 98.9 66 20 107/59 (75) 97 Room Air I & O 11/25/18 07:00 Intake Total 5260 ml Output Total 3400 ml Balance 1860 ml Capillary Refill : Less Than 3 SecondsLess Than 3 Seconds General Appearance: No Apparent Distress, WD/WN HEENT: PERRL/EOMI, Normal ENT Inspection Neck: Full Range of Motion, Non Tender, Supple Respiratory: Chest Non Tender, No Accessory Muscle Use, No Respiratory Distress Cardiovascular: Regular Rate, Rhythm Gastrointestinal: soft, tenderness (left lower quadrant minimal) Extremity: Normal Capillary Refill, Non Tender, No Calf Tenderness, No Pedal Edema Neurologic/Psychiatric: Alert, Oriented x3, No Motor/Sensory Deficits, Normal Mood/Affect, reed polisher II-XII Norm as Tested Skin: Normal Color, Warm/Dry Lymphatic: No Adenopathy Results Lab Laboratory Tests 11/25/18 04:46: White Blood Count 14.9H, Red Blood Count 4.90, Hemoglobin 13.2L, Hematocrit 40, Mean Corpuscular Volume 81, Mean Corpuscular Hemoglobin 27, Mean Corpuscular Hemoglobin Concent 33, Red Cell Distribution Width 14.0, Platelet Count 295, Mean Platelet Volume 11.4H, Sodium Level 138, Potassium Level 3.9, Chloride Level 104, Carbon Dioxide Level 25, Anion Gap 9, Blood Urea Nitrogen 7, Creatinine 0.92, Estimat Glomerular Filtration Rate > 60, BUN/Creatinine Ratio 8, Glucose Level 133H, Calcium Level 9.2, Corrected Calcium 9.5, Total Bilirubin 0.9, Aspartate Amino Transf (AST/SGOT) 14, Alanine Aminotransferase (ALT/SGPT) 16, Alkaline Phosphatase 63, Total Protein 6.5, Albumin 3.6 Microbiology 11/21/18 Blood Culture - Preliminary, Resulted No growth 11/22/18 MRSA Screen - Final, Complete MRSA not isolated Assessment/Plan Assessment/Plan Assessment/Plan DIVERTICULAR ABSCESS WITH RUPTURE ABDOMINAL PAIN URETERAL STONE IRRITABLE BOWEL SYNDROME LEUKOCYTOSIS HYPERBILIRUBINEMIA patient overall continuing to improve. Continue IV antibiotics convert to oral antibiotics keep on clear liquids and then slowly advance. Patient will need colonoscopy in about 6 weeks after everything heals for further evaluation. If continues to improve possibly home tomorrow. Clinical Quality Measures DVT/VTE Risk/Contraindication: Risk Factor Score Per Nursin RFS Level Per Nursing on Admit: 2=Moderate GARDENIA OLGUIN DO Nov 25, 2018 16:17
[2018-11-25 16:26] VITALS: BP 105/60
[2018-11-25] MEDS: SUCRALFATE 1 GM (CARAFATE) TAB PO SCH ×2 (17:45→19:37)
[2018-11-25] MEDS: PANTOPRAZOLE 20 MG TABLET (PROTONIX) PO SCH (19:37)
[2018-11-25 19:50] VITALS: BP 107/72
[2018-11-26] VITALS: BP 103/64
[2018-11-26] MEDS: D5 1/2 NS W/KCL 20 MEQ/L 1,000 ML IV SCH ×2 (01:14→06:05)
[2018-11-26] MEDS: metroNIDAZOLE 500MG/100ML IVPB 100 ML IV SCH ×2 (01:30→07:39)
[2018-11-26 04:00] VITALS: BP 108/69
[2018-11-26 05:12] LABS: MEAN PLATELET VOLUME 10.8 FL (7.4-10.4); RED CELL DISTRIBUTION WIDTH 14.2 % (10.0-14.5); WHITE BLOOD COUNT 14.8 10^3/uL (4.3-11.0)
[2018-11-26 05:41] LABS: ALANINE AMINOTRANSFERASE 22 U/L (0-55); ALBUMIN 3.5 GM/DL (3.2-4.5); ALKALINE PHOSPHATASE 61 U/L (40-136); BILIRUBIN,TOTAL 0.8 MG/DL (0.1-1.0); BUN/CREATININE RATIO 6; CALCIUM 9.3 MG/DL (8.5-10.1); CARBON DIOXIDE 27 MMOL/L (21-32); CHLORIDE 103 MMOL/L (98-107); CREATININE SERUM 0.98 MG/DL (0.60-1.30); GFR ESTIMATED > 60; GLUCOSE 116 MG/DL (70-105); POTASSIUM 4.2 MMOL/L (3.6-5.0); SODIUM 136 MMOL/L (135-145)
[2018-11-26] MEDS: PIPERACILLIN/TAZO 4.5 GM/NS 100 ML IV SCH ×2 (06:05)
[2018-11-26] MEDS: SUCRALFATE 1 GM (CARAFATE) TAB PO SCH ×2 (06:08→10:15)
[2018-11-26 08:00] VITALS: BP 104/70
[2018-11-26] MEDS: PANTOPRAZOLE 20 MG TABLET (PROTONIX) PO SCH (10:15)
[2018-11-26 11:47] VITALS: BP 94/63
[2018-11-26 12:32] VITALS: BP 94/63
--- NOTE | 2018-11-26 12:40 | Discharge Summary-Hospitalist ---
Diagnosis/Chief Complaint Date of Admission Nov 22, 2018 at 01:00 Date of Discharge Discharge Date: Nov 26, 2018 Discharge Time: 1100 Discharge Diagnosis (1) Perforation of sigmoid colon due to diverticulitis Status: Acute (2) Left ureteral stone Status: Acute (3) Perforation of sigmoid colon due to diverticulitis Status: Acute Discharge Summary Discharge Physical Exam Allergies: Coded Allergies: No Known Drug Allergies (Unverified , 11/28/10) Vitals & I&Os Vital Signs Date Time Temp Pulse Resp B/P (MAP) Pulse Ox O2 Delivery O2 Flow Rate FiO2 11/26/18 12:32 71 18 94/63 95 Room Air 11/26/18 11:47 98.2 11/25/18 20:00 4.00 General Appearance: No Apparent Distress, WD/WN Respiratory: Chest Non Tender, Lungs Clear, Normal Breath Sounds, No Accessory Muscle Use, No Respiratory Distress Cardiovascular: Regular Rate, Rhythm, No Edema, No Gallop, No JVD, No Murmur, Normal Peripheral Pulses Gastrointestinal: Normal Bowel Sounds, No Organomegaly, No Pulsatile Mass, Non Tender, Soft Neurologic/Psychiatric: Alert, Oriented x3, No Motor/Sensory Deficits, Normal Mood/Affect Hospital Course Was the Problem List Reviewed?: Yes Hospital course: Patient had a lengthy hospital course after admitted for diverticular abscess rupture and remain in the hospital for a total of 4 days. General surgery was consulted who managed the perforation and a nonsurgical conservative manner. Lithotripsy was required due to 5 mm stone which required intervention which was approved by general surgery which was completed in an uncomplicated manner. Empiric antibiotics were maintained IV and bowel rest was maintained. Pain improved dramatically and labs returned to near normal of white count of 14,000 patient remained afebrile vital signs remained stable and he was in agreement for discharge with close follow-up by primary care provider Dr. Riggs and Dr. James general surgery. Labs (last 24 hrs) Laboratory Tests 11/26/18 04:41: White Blood Count 14.8H, Red Blood Count 4.92, Hemoglobin 13.0L, Hematocrit 40, Mean Corpuscular Volume 81, Mean Corpuscular Hemoglobin 26, Mean Corpuscular Hemoglobin Concent 33, Red Cell Distribution Width 14.2, Platelet Count 331, Mean Platelet Volume 10.8H, Sodium Level 136, Potassium Level 4.2, Chloride Level 103, Carbon Dioxide Level 27, Anion Gap 6, Blood Urea Nitrogen 6L, Creatinine 0.98, Estimat Glomerular Filtration Rate > 60, BUN/Creatinine Ratio 6, Glucose Level 116H, Calcium Level 9.3, Corrected Calcium 9.7, Total Bilirubin 0.8, Aspartate Amino Transf (AST/SGOT) 25, Alanine Aminotransferase (ALT/SGPT) 22, Alkaline Phosphatase 61, Total Protein 6.0L, Albumin 3.5 Microbiology 11/21/18 Blood Culture - Preliminary, Resulted No growth 11/22/18 MRSA Screen - Final, Complete MRSA not isolated Patient resulted labs reviewed. Pending Labs Discussion & Recommendations Discharge Planning: <30 minutes discharge planning Discharge Home Medications: Active Scripts Active Hydrocodone-Acetamin 5-325 mg (Hydrocodone/Acetaminophen) 1 Each Tablet 1 Tab PO Q4-6HR 7 Days Ondansetron Odt (Ondansetron) 4 Mg Tab.rapdis 4 Mg PO QID Acidophilus Lactobacilli (Lactobacillus Acidophilus) 1 Each Capsule 1 Each PO TID Flagyl (Metronidazole) 500 Mg Tablet 500 Mg PO TID Ciprofloxacin HCl 500 Mg Tablet 500 Mg PO BID Reported Dicyclomine HCl 20 Mg Tablet 20 Mg PO TID PRN Atorvastatin Calcium 10 Mg Tablet 10 Mg PO HS Fluticasone Propionate 16 Gm [place].susp 1 [place] NS BID Yuridia-D 12 Hour Tablet (Fexofenadine/Pseudoephedrine) 1 Each Tab.er.12h 1 Tab PO DAILY PRN Instructions to patient/family Please see electronic discharge instructions given to patient. Clinical Quality Measures DVT/VTE Risk/Contraindication: Risk Factor Score Per Nursin RFS Level Per Nursing on Admit: 2=Moderate SUSHANT CORTES DO Nov 26, 2018 12:40
--- NOTE | 2018-11-26 13:07 | Progress Note ---
Subjective Time Seen by a Provider: 11:28 Subjective/Events-last exam Pt seen and examined, he is ready to go home. He and his family had questions. Review of Systems Pulmonary: No Dyspnea, No Cough Gastrointestinal: No: Nausea, Vomiting, Abdominal Pain Objective Exam Vital Signs Date Time Temp Pulse Resp B/P (MAP) Pulse Ox O2 Delivery O2 Flow Rate FiO2 11/26/18 11:47 98.2 71 18 94/63 (73) 95 Room Air 11/26/18 08:00 Room Air 11/26/18 08:00 98.3 65 18 104/70 (81) 96 Room Air 11/26/18 04:00 98.1 62 18 108/69 (82) 98 Room Air 11/26/18 00:00 98.5 73 18 103/64 (77) 96 Room Air 11/25/18 20:00 98 Room Air 4.00 11/25/18 19:50 99.4 65 20 107/72 (84) 98 Room Air 11/25/18 16:26 98.4 69 20 105/60 (75) 97 Room Air I & O 11/26/18 07:00 Intake Total 2350 ml Output Total 550 ml Balance 1800 ml Capillary Refill : Less Than 3 SecondsLess Than 3 Seconds General Appearance: No Apparent Distress, WD/WN HEENT: PERRL/EOMI Respiratory: Chest Non Tender, No Accessory Muscle Use, No Respiratory Distress Cardiovascular: Regular Rate, Rhythm, No Murmur Gastrointestinal: soft, tenderness (left lower quadrant minimal) Neurologic/Psychiatric: Alert, Oriented x3 Skin: Normal Color, Warm/Dry Results Lab Laboratory Tests 11/26/18 04:41: White Blood Count 14.8H, Red Blood Count 4.92, Hemoglobin 13.0L, Hematocrit 40, Mean Corpuscular Volume 81, Mean Corpuscular Hemoglobin 26, Mean Corpuscular Hemoglobin Concent 33, Red Cell Distribution Width 14.2, Platelet Count 331, Mean Platelet Volume 10.8H, Sodium Level 136, Potassium Level 4.2, Chloride Level 103, Carbon Dioxide Level 27, Anion Gap 6, Blood Urea Nitrogen 6L, Creatinine 0.98, Estimat Glomerular Filtration Rate > 60, BUN/Creatinine Ratio 6, Glucose Level 116H, Calcium Level 9.3, Corrected Calcium 9.7, Total Bilirubin 0.8, Aspartate Amino Transf (AST/SGOT) 25, Alanine Aminotransferase (ALT/SGPT) 22, Alkaline Phosphatase 61, Total Protein 6.0L, Albumin 3.5 Microbiology 11/21/18 Blood Culture - Preliminary, Resulted No growth 11/22/18 MRSA Screen - Final, Complete MRSA not isolated Assessment/Plan Assessment/Plan Assessment/Plan DIVERTICULAR ABSCESS WITH RUPTURE ABDOMINAL PAIN URETERAL STONE IRRITABLE BOWEL SYNDROME LEUKOCYTOSIS HYPERBILIRUBINEMIA I spoke with pt and family for over 20 minutes; going over signs and symptoms of recurrent disease, future plans i.e. colonoscopy or possibly surgery. We also discussed diet and all other questions. Pt is ok to go home, increase to soft diet and increase fiber and fluids. Clinical Quality Measures DVT/VTE Risk/Contraindication: Risk Factor Score Per Nursin RFS Level Per Nursing on Admit: 2=Moderate BRUCE HOWARD DO Nov 26, 2018 13:07
== END 2018-11-26 12:32 | disposition home or self-care (01) | DRG 392 ==
LOC: EDUNIT# 21:47 → ER 21:48 → 4TH 11-22 01:00
PROVIDERS: ADMIT Family Medicine; ATTEND Family Medicine
PROC: 0TF7XZZ Fragmentation in Left Ureter, External Approach (ICD-10-PCS; principal; 2018-11-22 10:39)
DX: K57.20 Diverticulitis of large intestine with perforation and abscess without bleeding (principal); N20.1 Calculus of ureter; K56.7 Ileus, unspecified; K58.1 Irritable bowel syndrome with constipation; D72.829 Elevated white blood cell count, unspecified; E80.6 Other disorders of bilirubin metabolism; K30 Functional dyspepsia; Z80.3 Family history of malignant neoplasm of breast
CPT/HCPCS: 36415; 74018; 74022; 74176; 80048; 80053; 81000; 82150; 83605; 83690; 83735; 85007; 85025; 85027; 85610; 85730; 87040; 87081

== ENCOUNTER 2019-01-12 06:27 | Outpatient (CLI) | payer BC ==
[~2019-01-12] VITALS: Ht 188 cm; Wt 79.4 kg
[~2019-01-12 06:27] MED LIST changes: +ATOR10TA66 PO; +CIPR500T4 PO; +DICY20TA10 PO; +FEXO1TAB40 PO; +FLUT16SP22 NS; +HYDR-3812 PO; +LACT1CAP87 PO; +METR500T PO; +ONDA4TAB11 PO
[2019-01-12] MEDS ORDERED: CETI10TA17 PO (15:55)
[2019-01-12] MEDS ORDERED: MULT-1055 PO (15:55)
[2019-01-12] MEDS ORDERED: LACT1CAP72 PO (15:56)
== END 2019-01-12 15:57 | disposition home or self-care (01) ==
LOC: PREOP 06:27
PROVIDERS: ATTEND Surgery
DX: Z01.818 Encounter for other preprocedural examination (principal)

== ENCOUNTER 2019-01-17 12:51 | Day surgery (SDC) | payer BC ==
[~2019-01-17] VITALS: Ht 188 cm; Wt 79.4 kg
[2019-01-17] VITALS (7 sets, daily range): BP systolic 109–116; BP diastolic 70–82
[~2019-01-17 12:51] MED LIST changes: +CETI10TA17 PO; +LACT1CAP72 PO; +MULT-1055 PO
[2019-01-17] MEDS ORDERED: LACTATED RINGERS 1,000 ML IV ONE (12:59)
[2019-01-17] MEDS ORDERED: LACTATED RINGERS 1,000 ML IV STA (13:20)
[2019-01-17] MEDS ORDERED: PROPOFOL INJECTION 50 ML IV ONE (13:50)
[2019-01-17] MEDS ORDERED: MIDAZOLAM 2 MG/2 ML (VERSED) VIAL ONE (13:50)
[2019-01-17] MEDS ORDERED: HURRICAINE EXT TUBE (BENZOCAINE) ONE (13:53)
--- NOTE | 2019-01-17 14:00 | Progress Note-Pre Operative ---
Pre-Operative Progress Note H&P Reviewed The H&P was reviewed, patient examined and no changes noted. Date Seen by Provider: Jan 17, 2019 Time Seen by Provider: 13:59 Date H&P Reviewed: Jan 17, 2019 Time H&P Reviewed: 13:59 Pre-Operative Diagnosis: gerd, hx diverticulitis GARDENIA OLGUIN DO Jan 17, 2019 14:00
--- NOTE | 2019-01-17 14:40 | Progress Note-Post Operative ---
Post-Operative Progess Note Surgeon (s)/Payroll Auditor (s) Surgeon GARDENIA OLGUIN DO Payroll Auditor: n/a Pre-Operative Diagnosis gerd, hx diverticulitis Post-Operative Diagnosis gastritis, reflux esophagitis, duodenitis; diverticulosis, minimal colitis, colon polyp Procedure & Operative Findings Date of Procedure 01/17/19 Procedure Performed/Findings EGD with biopsies antrum, body, cardia, duodenum, GE junction, colonoscopy with hot biopsy descending colon and cold biopsies sigmoid colon Anesthesia Type per buying intern Estimated Blood Loss Estimated blood loss (mL): none Specimens/Packing Specimens Removed antrum, body, cardia, duodenum, and GE junction; hot biopsy descending colon, cold biopsy sigmoid colon GARDENIA OLGUIN DO Jan 17, 2019 14:39
[2019-01-17] MEDS ORDERED: PANT40TA3 PO (14:44)
--- NOTE | 2019-01-17 14:45 | Discharge Inst-Simple/Standard ---
Discharge Inst-Standard Discharge Medications New, Converted or Re-Newed RX: Transmitted to Pharmacy Patient Instructions/Follow Up Plan of Care/Instructions/FU: 2 weeks Jacob Activity as Tolerated: Yes Discharge Diet: Regular Diet (High fiber diet) GARDENIA OLGUIN DO Jan 17, 2019 14:45
--- NOTE | 2019-01-17 15:34 | Anesthesia-General Post-Op ---
MAC Patient Condition Mental Status/LOC: Same as Preop Cardiovascular: Satisfactory Nausea/Vomiting: Absent Respiratory: Satisfactory Pain: Controlled Complications: Absent Post Op Complications Complications None Follow Up Care/Instructions Patient Instructions None needed. Anesthesiology Discharge Order Discharge Order Patient was seen after the procedure and he was doing well, no complaints, stable vital signs, no apparent adverse anesthesia problems. ONEIL BALES DO Jan 17, 2019 15:34
--- NOTE | 2019-01-17 16:44 | OPERATIVE REPORT ---
DATE OF SERVICE: 01/17/2019 PREOPERATIVE DIAGNOSES: Gastroesophageal reflux disease and history of diverticulitis. POSTOPERATIVE DIAGNOSES: Duodenitis, gastritis, minimal diverticulosis, minimal colitis. PROCEDURE: EGD with biopsies, colonoscopy with hot biopsy polypectomy and random cold biopsies of the sigmoid colon. SURGEON: Gardenia James DO ANESTHESIA: Per SAP CRM DEVELOPER. ESTIMATED BLOOD LOSS: None. COMPLICATIONS: None. INDICATIONS: The patient is a 43-year-old male with recent history of microperforation diverticulitis. He is also without reflux. He understands risks and benefits of procedures and wished to proceed with procedure. Consent was signed in the chart. DESCRIPTION OF PROCEDURE: The patient was taken to the endoscopy suite, placed in the left lateral recumbent position. Timeout was performed. Scope was inserted into the mouth, down the esophagus, stomach and into the duodenum without difficulty. Second portion of duodenum had normal appearance. First portion had erythematous changes consistent with duodenitis. Biopsy was obtained. Scope was slowly retracted back into the stomach where further insufflated gastritis appearance. Biopsy of the antrum and cardia were performed. Scope was retroflexed noting no other pathology. Scope was then returned to its normal position, slowly withdrawn to the distal esophagus. Biopsy of the GE junction was obtained. Some slight erythematous changes, no polyps, masses or ulcerations. Scope was then slowly retracted back until completely removed. Digital rectal exam was performed. There were no palpable polyps, masses or ulcerations. Scope was inserted in the rectum and advanced all the way to the cecum with minimal difficulty. Prep was adequate. Scope was then slowly retracted back. There were no polyps, masses or ulcerations within the cecum, ascending, transverse colon. In the descending colon, a small polyp was present to which hot biopsy polypectomy was performed. Scope was then continuously retracted back. The sigmoid colon had a congested and slightly erythematous appearance. Random cold biopsies were obtained. Scope was then continued and slowly retracted back until in the rectum, where it was also retroflexed noting no other pathology. Scope was returned to its normal position, slowly withdrawn until completely removed. The patient tolerated procedure well without any complications, taken to recovery room in stable condition. RECOMMENDATIONS: The patient will need repeat colonoscopy in 5 years. If he has any issues before that, will be seen at that time. The patient to be started on Protonix 40 mg daily. He will follow up in the office in two to three weeks to discuss pathology results and see how he is doing. Job ID: [id number] DocumentID: [id number] Dictated Date: 01/17/2019 14:43:38 Route Inspector Date: 01/17/2019 16:43:29 Dictated By: GARDENIA JAMES DO
== END 2019-01-17 15:30 | disposition home or self-care (01) ==
LOC: ENDO 12:51
PROVIDERS: ATTEND Surgery
DX: K29.70 Gastritis, unspecified, without bleeding (principal); D12.4 Benign neoplasm of descending colon; K63.89 Other specified diseases of intestine; K21.9 Gastro-esophageal reflux disease without esophagitis; K29.80 Duodenitis without bleeding; K31.89 Other diseases of stomach and duodenum; K52.9 Noninfective gastroenteritis and colitis, unspecified; K57.30 Diverticulosis of large intestine without perforation or abscess without bleeding; N20.0 Calculus of kidney; J30.9 Allergic rhinitis, unspecified; Z87.19 Personal history of other diseases of the digestive system; Z85.3 Personal history of malignant neoplasm of breast; Z79.899 Other long term (current) drug therapy
CPT/HCPCS: 88305

== ENCOUNTER → 2019-12-26 | Outpatient (CLI) | payer BC ==
[~2019-12-26] MED LIST changes: +ACHD5005 PO; -HYDR-3812 PO; +PANT40TA3 PO
--- NOTE | 2019-12-26 09:19 | Diagnostic Imaging Report ---
INDICATION: Left flank pain, history of nephrolithiasis. Compared with study 11/23/2018 FINDINGS: Left pelvic phleboliths stable. No appreciable radiopaque urinary tract stone is found. The bowel gas pattern normal. IMPRESSION: No significant abnormality Dictated by: Dictated on workstation # [id number]
== END ==
LOC: RAD 08:46
PROVIDERS: ATTEND Nurse Practitioner Family
DX: R10.9 Unspecified abdominal pain (principal); Z87.442 Personal history of urinary calculi
CPT/HCPCS: 74018

== ENCOUNTER → 2021-06-12 | Outpatient (CLI) | payer BC ==
[~2021-06-12] MED LIST changes: -CIPR500T4 PO; +CIPR500T5 PO; +DICY20TA PO; -DICY20TA10 PO; -PANT40TA3 PO; +PANT40TA52 PO
--- NOTE | 2021-06-12 15:34 | Diagnostic Imaging Report ---
PROCEDURE: CT abdomen and pelvis without contrast. TECHNIQUE: Multiple contiguous axial images were obtained through the abdomen and pelvis without the use of intravenous contrast. Auto Exposure Controls were utilized during the CT exam to meet ALARA standards for radiation dose reduction. INDICATION: Left lower quadrant abdominal pain. COMPARISON: 11/21/2018. FINDINGS: Unenhanced images of liver, gallbladder, pancreas, adrenal gland and spleen are unremarkable. There is no evidence of renal abnormality. Calculus seen previously in the proximal left ureter has passed. There has been mild increase in fluid in the left paracolic gutter. There is continued moderate pericolonic inflammation along the inferior aspect of the descending colon. There is no evidence of organized fluid collection to indicate abscess. Unopacified bladder is unremarkable in appearance. IMPRESSION: Findings remain compatible with descending colitis with surrounding inflammation and developing paracolic fluid. There is however no organized fluid collection or significant pneumoperitoneum identified. No proximal dilatation is seen to indicate obstruction. Dictated by: Dictated on workstation # [id number]
== END ==
LOC: RAD 14:25
PROVIDERS: ATTEND Nurse Practitioner Family
DX: R10.32 Left lower quadrant pain (principal)
CPT/HCPCS: 74176

== ENCOUNTER → 2021-06-12 | Outpatient (CLI) | payer BC ==
--- NOTE | 2021-06-12 10:29 | Diagnostic Imaging Report ---
INDICATION: Left lower quadrant pain. TIME OF EXAM: 10:03 AM Comparison is made with prior abdominal radiograph from 12/26/2019. Punctate opacities throughout the abdomen noted consistent with bowel contents. Bowel gas pattern is nonobstructed. No free air is identified. There are pelvic phleboliths present. IMPRESSION: No acute abnormality is detected. Dictated by: Dictated on workstation # [id number]
== END ==
LOC: RAD 09:33
PROVIDERS: ATTEND Nurse Practitioner Family
DX: R10.32 Left lower quadrant pain (principal); Z87.19 Personal history of other diseases of the digestive system
CPT/HCPCS: 74018

== ENCOUNTER 2022-03-17 04:36 | Emergency (ER) | payer BC ==
[~2022-03-17] VITALS: Ht 188 cm; Wt 87.0 kg
[2022-03-17 04:50] VITALS: BP 129/93
[2022-03-17 05:00] LABS: BILIRUBIN,URINE NEGATIVE (NEGATIVE); CLARITY,URINE CLEAR; COLOR,URINE YELLOW; GLUCOSE, URINE (UA) NEGATIVE (NEGATIVE); KETONES,URINE NEGATIVE (NEGATIVE); LEUKOCYTE ESTERASE ,URINE NEGATIVE (NEGATIVE); NITRITE,URINE NEGATIVE (NEGATIVE); PROTEIN,URINE NEGATIVE (NEGATIVE)
[2022-03-17] MEDS ORDERED: LACTATED RINGERS 1,000 ML IV ONE (05:00)
[2022-03-17] MEDS ORDERED: KETOROLAC 30 MG/ML VIAL IVP STA (05:00)
--- NOTE | 2022-03-17 05:03 | ED GU-Male ---
General Chief Complaint: - Reproductive Stated Complaint: LEFT SIDE PAIN,TESTICAL PAIN Nursing Triage Note: Pt presents with c/o LL abdomen pain radiating into L testicle. Pt reports pain started yesterday at work. Denies injury. Pain increases with urination, denies hematuria. Source: patient (CHARLIE MONTERROSO DO) History of Present Illness Date Seen by Provider: Mar 17, 2022 Time Seen by Provider: 04:53 Initial Comments PT ARRIVES VIA POV FROM HOME WITH C/O LLQ/LEFT FLANK PAIN RADIATING TO LEFT GROIN AND INTO LEFT TESTICLE AND PENIS SINCE YESTERDAY MORNING PAIN COMES AND GOES IS WORSE WITH MOVEMENT OR WITH URINATION NO ACTUAL BURNING ON URINATION, JUST PAIN THE LLQ/LEFT FLANK AND LEFT GROIN AREAS. NO NAUSEA/VOMITING NO FEVER NO PROBLEMS WITH BM'S HAS NOT TAKEN ANYTHING FOR PAIN PT HAS HISTORY OF ONE PRIOR KIDNEY STONE, AND HAD LITHOTRIPSY DONE BY DR. DUENAS THIS WAS IN NOVEMBER OF 2018, PT ALSO HAD A MICRO-PERFORATION OF SIGMOID DIVERTICUL ITIS AT THE SAME TIME. TREATED WITH ANTIBIOTICS AT THAT TIME PT HAS HAD SEVERAL EPISODES OF DIVERTICULITIS SINCE THEN, AND HAD A COLON RESECTION TO REMOVE THE AFFECTED AREAS OF DIVERTICULOSIS A COUPLE MONTHS AGO BY DR. POMPA AT [facility] [place]. HE IS DOING VERY WELL FROM THAT STAND POINT. PT STATES THIS PAIN FEELS SIMILAR TO PREVIOUS KIDNEY STONE, BUT DIFFICULT TO DETERMINE HE ALSO HAD PERFORATED SIGMOID DIVERTICULITIS AT THE SAME TIME. PT HAS RECENTLY HAD A SINUS INFECTION/URI, AND WAS STARTED ON AN UNKNOWN ANTIBIOTIC LAST WEEK, TOOK IT FOR 7 DAYS AND FINISHED IT 2 DAYS AGO. THOSE SYMPTOMS HAVE RESOLVED. PT DOES NOT TAKE ANY DAILY MEDICATIONS. PCP: DR. FONTAINE (CHARLIE MONTERROSO DO) Allergies and Home Medications Allergies Coded Allergies: No Known Drug Allergies (Unverified , 11/28/10) Patient Home Medication List Home Medication List Reviewed: Yes (MACHO KIRKPATRICK MD) Cetirizine HCl (Cetirizine HCl) 10 Mg Tablet, 10 MG PO DAILY, (Reported) Entered as Reported by: FLORINDA SORIANO on 01/12/19 1555 Lactobacillus Combo No.10 (Probiotic) 1 Each Capsule, 1 EACH PO DAILY, (Reported) Entered as Reported by: FLORINDA SORIANO on 01/12/19 1556 Multivits,Ca,Min/Iron/FA/Lycop (Men Under 50 Multivitamin Tab) 1 Each Tablet, 1 EACH PO DAILY, (Reported) Entered as Reported by: FLORINDA SORIANO on 01/12/19 1555 Pantoprazole Sodium (Pantoprazole Sodium) 40 Mg Tablet., 40 MG PO DAILY Prescribed by: GARDENIA OLGUIN on 01/17/19 1444 Review of Systems Review of Systems Constitutional: no symptoms reported Respiratory: no symptoms reported Cardiovascular: no symptoms reported Gastrointestinal: see HPI Genitourinary: see HPI Musculoskeletal: see HPI, back pain Skin: no symptoms reported Psychiatric/Neurological: No Symptoms Reported Endocrine: No Symptoms Reported Hematologic/Lymphatic: No Symptoms Reported (CHARLIE MONTERROSO DO) Past Ovewrsw-Tvqwlm-Wbebzz Hx Patient Social History Tobacco Use?: No Substance use?: No Alcohol Use?: No (CHARLIE MONTERROSO DO) Seasonal Allergies Seasonal Allergies: Yes (CHARLIE MONTERROSO DO) Past Medical History Surgeries: Yes (shoulder scope, knee scope) Abdominal, Orthopedic, Renal Respiratory: No Cardiac: No Neurological: No Reproductive Disorders: No Genitourinary: Yes (LITHOTRIPSY 11/2018) Kidney Stones Gastrointestinal: Yes (MICRO-PERF. SIGMOID DIVERTICULITIS 11/2018; COLON RESECTION 12/2021) Gastroesophageal Reflux, Chronic Constipation, Diverticulosis, Irritable Bowel Musculoskeletal: No Endocrine: No HEENT: No Cancer: No Psychosocial: No Integumentary: No Blood Disorders: No (CHARLIE MONTERROSO DO) Family Medical History FH: breast cancer 19 MOTHER Heart Disease, Cancer, Other Conditions/Hx PAST SURGICAL HISTORY : -SHOULDER SCOPE-TORN LABRUM -KNEE SCOPE-TORN MENISCUS -LITHOTRIPSY 11/2018 -COLONOSCOPIES -COLON RESECTION FOR DIVERTICULITIS 12/[address] [facility] (CHARLIE MONTERROSO DO) Physical Exam Vital Signs Vital Signs - First Documented 03/17/22 04:50 Temp 36.8 Pulse 90 Resp 18 B/P (MAP) 129/93 (105) (MACHO KIRKPATRICK MD) Vital Signs Capillary Refill : Less Than 3 Seconds (CHARLIE MONTERROSO DO) Height, Weight, BMI Height: 6'2.00" Weight: 175lbs. 0.0oz. 79.573141ex; 24.00 BMI Method:Stated General Appearance: WD/WN, no apparent distress, thin, other (FLAT AFFECT. LAYING OUTSTRETCHED. DOES NOT APPEAR ILL OR TO BE IN ANY DISCOMFORT OR DISTRSS. ) Cardiovascular: regular rate, rhythm, no murmur Respiratory: normal breath sounds, no respiratory distress, no accessory muscle use Gastrointestinal: normal bowel sounds, soft, no organomegaly; No distended, No guarding, No rebound; tenderness (LLQ); No hernia, No mass; other (SURGICAL SITES ALL WELL HEALED. NO SIGNS OF INFECTION) Back: CVA tenderness (L) Extremities: normal inspection Neurologic/Psychiatric: no motor/sensory deficits, alert, oriented x 3 Skin: normal color, warm/dry; No rash (CLAUDIA,CHARLIE K DO) Progress/Results/Core Measures Suspected Sepsis SIRS Temperature: Pulse: 90 Respiratory Rate: 18 Laboratory Tests 03/17/22 05:10: White Blood Count 14.7H Blood Pressure 129 /93 Mean: 105 Laboratory Tests 03/17/22 05:10: Creatinine 0.93, Platelet Count 356, Total Bilirubin 0.9 (CLAUDIA,CHARLIE K DO) Results/Orders Lab Results Laboratory Tests Test 03/17/22 04:51 03/17/22 05:10 Range/Units Urine Color YELLOW Urine Clarity CLEAR Urine pH 7.0 5-9 Urine Specific [place] 1.010 L 1.016-1.022 Urine Protein NEGATIVE NEGATIVE Urine Glucose (UA) NEGATIVE NEGATIVE Urine Ketones NEGATIVE NEGATIVE Urine Nitrite NEGATIVE NEGATIVE Urine Bilirubin NEGATIVE NEGATIVE Urine Urobilinogen 0.2 < = 1.0 MG/DL Urine Leukocyte Esterase NEGATIVE NEGATIVE Urine RBC (Auto) NEGATIVE NEGATIVE Urine RBC NONE /HPF Urine WBC NONE /HPF Urine Squamous Epithelial Cells RARE /HPF Urine Crystals NONE /LPF Urine Bacteria FEW H /HPF Urine Casts NONE /LPF Urine Mucus NEGATIVE /LPF Urine Culture Indicated NO White Blood Count 14.7 H 4.3-11.0 10^3/uL Red Blood Count 5.46 4.30-5.52 10^6/uL Hemoglobin 14.8 13.3-17.7 g/dL Hematocrit 45 40-54 % Mean Corpuscular Volume 82 80-99 fL Mean Corpuscular Hemoglobin 27 25-34 pg Mean Corpuscular Hemoglobin Concent 33 32-36 g/dL Red Cell Distribution Width 13.2 10.0-14.5 % Platelet Count 356 130-400 10^3/uL Mean Platelet Volume 10.3 9.0-12.2 fL Immature Granulocyte % (Auto) 2 % Neutrophils (%) (Auto) 58 42-75 % Lymphocytes (%) (Auto) 29 12-44 % Monocytes (%) (Auto) 8 0-12 % Eosinophils (%) (Auto) 2 0-10 % Basophils (%) (Auto) 1 0-10 % Neutrophils # (Auto) 8.5 H 1.8-7.8 10^3/uL Lymphocytes # (Auto) 4.3 H 1.0-4.0 10^3/uL Monocytes # (Auto) 1.2 H 0.0-1.0 10^3/uL Eosinophils # (Auto) 0.3 0.0-0.3 10^3/uL Basophils # (Auto) 0.1 0.0-0.1 10^3/uL Immature Granulocyte # (Auto) 0.3 H 0.0-0.1 10^3/uL Neutrophils % (Manual) 57 % Lymphocytes % (Manual) 36 % Monocytes % (Manual) 4 % Eosinophils % (Manual) 1 % Basophils % (Manual) 1 % Myelocytes % 1 % Toxic Granulation 1+ Blood Morphology Comment NORMAL Sodium Level 136 135-145 MMOL/L Potassium Level 4.1 3.6-5.0 MMOL/L Chloride Level 103 98-107 MMOL/L Carbon Dioxide Level 24 21-32 MMOL/L Anion Gap 9 5-14 MMOL/L Blood Urea Nitrogen 9 7-18 MG/DL Creatinine 0.93 0.60-1.30 MG/DL Estimat Glomerular Filtration Rate 104 BUN/Creatinine Ratio 10 Glucose Level 102 70-105 MG/DL Calcium Level 9.1 8.5-10.1 MG/DL Corrected Calcium 9.1 8.5-10.1 MG/DL Total Bilirubin 0.9 0.1-1.0 MG/DL Aspartate Amino Transf (AST/SGOT) 18 5-34 U/L Alanine Aminotransferase (ALT/SGPT) 35 0-55 U/L Alkaline Phosphatase 95 40-136 U/L Total Protein 7.1 6.4-8.2 GM/DL Albumin 4.0 3.2-4.5 GM/DL Amylase Level 55 25-125 U/L Lipase 47 8-78 U/L (MACHO KIRKPATRICK MD) Medications Given in ED Current Medications Medications Dose Ordered Sig/Masha Route Start Time Stop Time Status Last Admin Dose Admin Lactated Ringer's 1,000 ml @ 0 mls/hr Q0M ONCE IV 03/17/22 05:00 03/17/22 05:02 DC 03/17/22 05:10 0 MLS/HR (MACHO KIRKPATRICK MD) Vital Signs/I&O 03/17/22 04:50 Temp 36.8 Pulse 90 Resp 18 B/P (MAP) 129/93 (105) (MACHO KIRKPATRICK MD) Vital Signs/I&O Capillary Refill : Less Than 3 Seconds (CHARLIE MONTERROSO DO) Blood Pressure Mean: 105 Progress Note : Progress Note GIVEN IV FLUIDS AND TORADOL FOR PAIN PAIN IMPROVED WITH TORADOL 0615--CARE TURNED OVER TO DR. KIRKPATRICK, CT RESULTS PENDING. (CHARLIE MONTERROSO DO) Progress Note : Time: 06:43 Progress Note Patient care assumed from Dr. Monterroso at shift change. 46-year-old man with 24 hours of left lower quadrant pain from the left side of the abdomen radiating down into the left groin, testicle and penis region. Patient's work-up is remarkable for mild leukocytosis. Normal urinalysis. Normal renal function. No fever. No nausea vomiting. He has not had a bowel movement in a couple of days. He has been taking a little Metamucil. He states that he has had some vague discomfort like this when he has not had a bowel movement for a few days in the past but never this intensity. He denies any risk for sexually transmitted infection. Denies penile discharge. He states currently his pain is gone. He was given toradol IV prior to my exam. My examination, soft abdomen no tenderness at this point in the left lower quadrant. Bowel sounds are present. I did a genitourinary exam. Circumcised, no penile discharge. He has many xanthelasma scattered over the scrotum. Both testicles are nontender. The left 1 feels a little smaller than the right. No abnormal lie. No left inguinal hernia is appreciated. Patient is examined standing. CT scan of the abdomen and pelvis stone protocol shows no evidence of kidney stone. No other acute pathology is identified via stat rad read. I discussed with the patient taking [id number]-wwfjhub Colace/Dulcolax to facilitate a bowel movement. Recommended Tylenol/ibuprofen for pain control. Monitoring his symptoms for fever, worsening pain, development of nausea and vomiting. I advised if he passes any blood in his urine or his stool he needs to come back to the emergency department. He is comfortable with this plan of care. All questions are sought and answered. Patient is stable for discharge. (MACHO KIRKPATRICK MD) Diagnostic Imaging Diagonstic Imaging: CT Plain Films/CT/US/NM/MRI: abdomen, pelvis Comments Via Stat Rad : No acute findings in the abdomen or pelvis (MACHO KIRKPATRICK MD) Departure Impression Primary Impression: Abdominal pain Qualified Codes: R10.32 - Left lower quadrant pain Disposition: 01 HOME, SELF-CARE Condition: Improved Departure-Patient Inst. Decision time for Depature: 06:47 (MACHO KIRKPATRICK MD) Referrals: GUILLERMINA FONTAINE MD (PCP/Family) Primary Care Physician Patient Instructions: Abdominal Pain, Adult ED Add. Discharge Instructions: Plenty of fluids to stay well-hydrated. Take yyew-bok-sqpgrgq extra strength Tylenol 2 tablets every 6 hours as needed for pain. You can also take olpq-ksy-bgcgyib ibuprofen 3 tablets which is 600 mg every 6 hours with food as needed for pain. If you develop a fever, worsening pain with vomiting, passed any blood in your urine or stool please come back to the emergency department for reevaluation. Follow-up with your primary care doctor as needed. Copy Copies To 1: GUILLERMINA FONTAINE MD, LISA K DO Mar 17, 2022 05:03 MACHO KIRKPATRICK MD Mar 17, 2022 06:49
[2022-03-17 05:16] LABS: BACTERIA,URINE FEW /HPF; SQUAMOUS EPITHELIAL CELL,UR RARE /HPF
[2022-03-17 05:18] LABS: BASOPHILS # (AUTO) 0.1 10^3/uL (0.0-0.1); BASOPHILS % (AUTO) 1 % (0-10); EOSINOPHILS # (AUTO) 0.3 10^3/uL (0.0-0.3); EOSINOPHILS % (AUTO) 2 % (0-10); HEMATOCRIT 45 % (40-54); HEMOGLOBIN 14.8 g/dL (13.3-17.7); LYMPHOCYTES # (AUTO) 4.3 10^3/uL (1.0-4.0); LYMPHOCYTES % (AUTO) 29 % (12-44); MEAN CORPUSCULAR HEMOGLOBIN 27 pg (25-34); MEAN CORPUSCULAR HGB CONC 33 g/dL (32-36); MEAN CORPUSCULAR VOLUME 82 fL (80-99); MEAN PLATELET VOLUME 10.3 fL (9.0-12.2); MONOCYTES # (AUTO) 1.2 10^3/uL (0.0-1.0); MONOCYTES % (AUTO) 8 % (0-12); NEUTROPHILS # (AUTO) 8.5 10^3/uL (1.8-7.8); NEUTROPHILS % (AUTO) 58 % (42-75); PLATELET COUNT 356 10^3/uL (130-400); WHITE BLOOD COUNT 14.7 10^3/uL (4.3-11.0)
[2022-03-17 05:28] LABS: POTASSIUM 4.1 MMOL/L (3.6-5.0)
[2022-03-17 05:29] LABS: CALCIUM 9.1 MG/DL (8.5-10.1)
[2022-03-17 05:30] LABS: TOTAL PROTEIN 7.1 GM/DL (6.4-8.2)
[2022-03-17 05:32] LABS: BILIRUBIN,TOTAL 0.9 MG/DL (0.1-1.0)
[2022-03-17 05:34] LABS: CREATININE SERUM 0.93 MG/DL (0.60-1.30)
[2022-03-17 06:18] LABS: BASOPHILS % (MANUAL) 1 %; EOSINOPHILS % (MANUAL) 1 %; LYMPHOCYTES % (MANUAL) 36 %; MONOCYTES % (MANUAL) 4 %; MYELOCYTES % 1 %; NEUTROPHILS % (MANUAL) 57 %; RBC MORPH NORMAL; TOXIC GRANULATION/VACUOLAZATIO 1+
--- NOTE | 2022-03-17 07:10 | Diagnostic Imaging Report ---
PROCEDURE: CT urinary tract, rule out kidney stone. TECHNIQUE: Multiple contiguous axial images were obtained through the abdomen and pelvis without the use of intravenous contrast. Auto Exposure Controls were utilized during the CT exam to meet ALARA standards for radiation dose reduction. INDICATION: Left lower quadrant pain radiating to left testicle Lung bases are clear. Liver appears normal. Gallbladder appears normal. Pancreas appears normal. Spleen appears normal. Kidneys and adrenals appear normal. Aorta and IVC are unremarkable. Appendix is normal. Small bowel is not dilated. The postsurgical changes from partial sigmoid resection with direct anastomosis. There is no intraperitoneal free air or free fluid. Urinary bladder is normal. Prostate is not enlarged. IMPRESSION: Postsurgical changes in the sigmoid colon. No acute abnormality seen in the abdomen or pelvis. I agree with preliminary interpretation. Dictated by: Dictated on workstation # [id number]
--- NOTE | 2022-03-17 07:26 | Diagnostic Imaging Report ---
INDICATION: Left lower abdominal pain and radiation to the left testicle. Symptoms starting yesterday.. TECHNIQUE: Supine and upright radiograph of the abdomen 5:38 AM CORRELATION STUDY: 06/12/2021 FINDINGS: Imaging of the abdomen demonstrates the bowel gas pattern to be unremarkable and without evidence for obstruction. No significant differential air-fluid levels. No evidence for free air. Mild stool in the colon. No pathologic intraabdominal calcifications. Lung bases clear. IMPRESSION: 1. Non-obstructed appearing bowel gas pattern. Dictated by: Dictated on workstation # [id number]
== END 2022-03-17 06:55 | disposition home or self-care (01) ==
LOC: EDUNIT# 04:36 → ER 04:40
DX: R10.32 Left lower quadrant pain (principal); D72.829 Elevated white blood cell count, unspecified
CPT/HCPCS: 36415; 74018; 74176; 80053; 81000; 82150; 83690; 85007; 85027